=== PATIENT | male | born 1955 | race Caucasian/White ===

== ENCOUNTER → 2016-12-22 | Outpatient (REF) | payer OTHER ==
[~2016-12-22] MED LIST: /AMLO25TA PO; /FENO14TA PO; /FENO48TA PO; ALFU10TA2 PO; AMLO10TA2 PO; ASPI325T PO; ASPI81CH PO; ATEN25TA PO; BACT800T5 PO; FLON1SPR; HYDR12.56 PO; KEFL500C7 PO; LIPI20TA PO; MACR100C3 PO; NEUR300C PO; NICO14DI3 TD; PERC10TA17 PO; PERCOCET PO; PROA1AER INH; PROS5TAB PO; SYMB16INH INH; TERA1CA PO; TYLE325T5 PO; TYLE650T30 PO; XANA0.25 PO; ZANT150T PO; [UNRECOGNIZED DRUG - CODE] PO; duricef PO
[2016-12-22 10:49] LABS: MEAN CORPUSCULAR HEMOGLOBIN 31.5 pg (27.0-33.0); MEAN CORPUSCULAR HGB CONC 33.5 g/dl (32.0-36.5); MEAN CORPUSCULAR VOLUME 94.1 fl (80.0-96.0); RED CELL DISTRIBUTION WIDTH 13.6 % (11.5-14.5); WHITE BLOOD COUNT 6.7 K/mm3 (4.0-10.0)
[2016-12-22 10:56] LABS: ALBUMIN 3.6 GM/DL (3.2-5.2); ALBUMIN/GLOBULIN RATIO 1.03 (1.00-1.93); BILIRUBIN,TOTAL 0.5 MG/DL (0.2-1.0); CALCIUM LEVEL 8.8 MG/DL (8.8-10.2); CREATININE FOR GFR 1.43 MG/DL (0.70-1.30); GLOMERULAR FILTRATION RATE 53.7 (>49); POTASSIUM SERUM 4.4 MEQ/L (3.5-5.1); TOTAL PROTEIN 7.1 GM/DL (6.4-8.2)
== END ==
LOC: M SFHCPLAZ 08:46
PROVIDERS: ATTEND Nurse Practitioner Adult Health
DX: Z00.00 Encounter for general adult medical examination without abnormal findings (principal); Z12.5 Encounter for screening for malignant neoplasm of prostate; E78.00 Pure hypercholesterolemia, unspecified; N18.3 Chronic kidney disease, stage 3 (moderate)
CPT/HCPCS: 36415; 80053; 80061; 83036; 85027; G0103

== ENCOUNTER → 2016-12-23 | Outpatient (REF) | payer OTHER | LOC: M SMT 12:55 | PROVIDERS: ATTEND Urology | DX: N40.1 Benign prostatic hyperplasia with lower urinary tract symptoms (principal) ==

== ENCOUNTER → 2017-01-11 | Outpatient (REF) | payer OTHER | LOC: M SMT 13:07 | PROVIDERS: ATTEND Urology | DX: N39.0 Urinary tract infection, site not specified (principal) ==

== ENCOUNTER → 2017-01-24 | Outpatient (CLI) | payer OTHER ==
--- NOTE | 2017-01-25 01:55 | REP ---
Clinical: Cough . Comparison: 12/24/2015 . Technique: PA and lateral. Findings: The mediastinum and cardiac silhouette are normal. The lung baez are clear and without acute consolidation, effusion, or pneumothorax. The skeletal structures are intact and normal. Impression: 1. No acute cardiopulmonary process. Signed by Nathaniel Cleary MD 01/25/2017 01:46 A
== END ==
LOC: M WUC 15:16
PROVIDERS: ATTEND Nurse Practitioner Adult Health
DX: R05 Cough (principal)

== ENCOUNTER → 2017-02-01 | Outpatient (REF) | payer OTHER | LOC: M SMT 13:13 | PROVIDERS: ATTEND Urology | DX: N39.0 Urinary tract infection, site not specified (principal) ==

== ENCOUNTER → 2017-02-17 | Outpatient (REF) | payer OTHER ==
[~2017-02-17] MED LIST changes: +ASPI81TA85 PO; +BETA5OI TOP; +ISOS60TA2 PO; +KEFL500C17 PO; -KEFL500C7 PO; -MACR100C3 PO; +MACR100C43 PO; -PERC10TA17 PO; +PERC10TA26 PO; -PROA1AER INH; +PROAAER10 INH
== END ==
LOC: M LAB REF 17:12
PROVIDERS: ATTEND Urology
DX: N39.0 Urinary tract infection, site not specified (principal)

== ENCOUNTER → 2017-03-02 | Outpatient (CLI) | payer OTHER ==
[2017-03-02 13:37] LABS: CALCIUM LEVEL 9.8 MG/DL (8.8-10.2); CREATININE FOR GFR 1.49 MG/DL (0.70-1.30); GLOMERULAR FILTRATION RATE 51.2 (>49)
[2017-03-02 13:42] LABS: POTASSIUM SERUM 5.3 MEQ/L (3.5-5.1)
== END ==
LOC: M SMT 08:58
PROVIDERS: ATTEND Urology
DX: N40.1 Benign prostatic hyperplasia with lower urinary tract symptoms (principal); N39.0 Urinary tract infection, site not specified

== ENCOUNTER → 2017-03-04 | Outpatient (CLI) | payer OTHER ==
[~2017-03-04] VITALS: Ht 182.9 cm; Wt 136.1 kg
[~2017-03-04] MED LIST changes: +GLUCAGON FOR INJ 1 MG VIAL (J1610) As Ordered ONE; +NS 1,000 ML IV ONE; +PROPOFOL 200 MG/20 ML VIAL As Ordered ONE
--- NOTE | 2017-03-04 11:44 | ROOR ---
Patient Name: Foster Mishra Procedure Date: 03/04/2017 11:15 AM Date of : 1955 Age: 61 Room: [facility] Gender: Male Note Status: Finalized Procedure: Colonoscopy Indications: Screening for colorectal malignant neoplasm Providers: Wes SALAZAR MD Referring MD: Nazia Blum NP Requesting Provider: Medicines: Monitored Anesthesia Care Complications: No immediate complications. Procedure: Pre-Anesthesia Assessment: - The heart rate, respiratory rate, oxygen saturations, blood pressure, adequacy of pulmonary ventilation, and response to care were monitored throughout the procedure. The Colonoscope was introduced through the anus and advanced to the cecum, identified by appendiceal orifice and ileocecal valve. The colonoscopy was performed without difficulty. The patient tolerated the procedure well. The quality of the bowel preparation was good. Findings: The perianal and digital rectal examinations were normal. (Exam: Complete, Prep: Good or Excellent.) A 5 mm polyp was found in the splenic flexure. The polyp was sessile. The polyp was removed with a cold snare. Resection and retrieval were complete. A 5 mm polyp was found in the sigmoid colon. The polyp was sessile. The polyp was removed with a cold snare. Resection and retrieval were complete. To prevent bleeding post-intervention, three hemostatic clips were successfully placed. There was no bleeding at the end of the procedure. Two sessile polyps were found in the cecum. The polyps were 3 to 4 mm in size. These polyps were removed with a cold snare. Resection and retrieval were complete. Multiple medium-mouthed diverticula were found in the sigmoid colon. Internal hemorrhoids were found during retroflexion. The hemorrhoids were medium-sized. The exam was otherwise without abnormality on direct and retroflexion views. Impression: - One 5 mm polyp at the splenic flexure, removed with a cold snare. Resected and retrieved. - One 5 mm polyp in the sigmoid colon, removed with a cold snare. Resected and retrieved. Clips were placed. - Two 3 to 4 mm polyps in the cecum, removed with a cold snare. Resected and retrieved. - Mild Diverticulosis in the sigmoid colon. - Moderate Internal hemorrhoids. - The examination was otherwise normal on direct and retroflexion views. Recommendation: - Repeat colonoscopy in 3 years for surveillance. - Telephone endoscopist for pathology results in 2 weeks. Wes Salazar MD Wes SALAZAR MD 03/04/2017 11:44:11 AM This report has been signed electronically. Number of Addenda: 0 Note Initiated On: 03/04/2017 11:15 AM Estimated Blood Loss: Estimated blood loss: none.
[2017-03-04 12:17] VITALS: BP 145/75
== END | disposition home or self-care (01) ==
LOC: M OPP 09:52
PROVIDERS: ATTEND Internal Medicine Gastroenterology
DX: Z12.11 Encounter for screening for malignant neoplasm of colon (principal); D12.3 Benign neoplasm of transverse colon; D12.5 Benign neoplasm of sigmoid colon; D12.0 Benign neoplasm of cecum; K57.30 Diverticulosis of large intestine without perforation or abscess without bleeding; K64.8 Other hemorrhoids; I12.9 Hypertensive chronic kidney disease with stage 1 through stage 4 chronic kidney disease, or unspecified chronic kidney disease; I25.10 Atherosclerotic heart disease of native coronary artery without angina pectoris; E78.5 Hyperlipidemia, unspecified; Z95.5 Presence of coronary angioplasty implant and graft; Z86.74 Personal history of sudden cardiac arrest; Z86.14 Personal history of Methicillin resistant Staphylococcus aureus infection; M19.90 Unspecified osteoarthritis, unspecified site; M54.9 Dorsalgia, unspecified; J44.9 Chronic obstructive pulmonary disease, unspecified; G47.30 Sleep apnea, unspecified; R06.83 Snoring; R06.02 Shortness of breath; N18.3 Chronic kidney disease, stage 3 (moderate); N40.1 Benign prostatic hyperplasia with lower urinary tract symptoms; J00 Acute nasopharyngitis [common cold]; F17.210 Nicotine dependence, cigarettes, uncomplicated; Z88.8 Allergy status to other drugs, medicaments and biological substances; Z88.5 Allergy status to narcotic agent; Z79.82 Long term (current) use of aspirin; Z79.01 Long term (current) use of anticoagulants; Z79.899 Other long term (current) drug therapy
CPT/HCPCS: 45385; 88305; J1610

== ENCOUNTER → 2017-04-01 | Outpatient (REF) | payer OTHER ==
[~2017-04-01] MED LIST changes: -GLUCAGON FOR INJ 1 MG VIAL (J1610) As Ordered ONE; -NS 1,000 ML IV ONE; -PROPOFOL 200 MG/20 ML VIAL As Ordered ONE
== END ==
LOC: M SMT 17:12
PROVIDERS: ATTEND Urology
DX: N39.0 Urinary tract infection, site not specified (principal)

== ENCOUNTER → 2017-04-04 | Outpatient (CLI) | payer OTHER ==
--- NOTE | 2017-04-09 10:32 | SLEEPCENT ---
DATE OF STUDY: 04/04/2017 ORDERING PROVIDER: Aleksandra Morton NP Nocturnal polysomnography was performed due to concern for the obstructive sleep apnea syndrome in this patient with a history of excessive daytime somnolence. 6 hours and 35 minutes of data were reviewed. There were 291 minutes of sleep identified. Sleep latency was prolonged at 22 minutes. Rapid eye movement (REM) latency more so prolonged at 198 minutes. Sleep architecture was fragmented with poor progression. There was only one REM period appreciated. Overall sleep efficiency was 74.7%. The patient's electrocardiogram (EKG) showed a sinus rhythm with an average heart rate of 76 beats per minute. Electroencephalogram (EEG) showed normal waveforms for awake and sleep. There were 648 respiratory events identified of 10 seconds in duration or greater for an apnea-hypopnea index of 133.6. The events were primarily obstructive, not exclusive to sleep stage nor posture. Arousals from respiratory events occurred 71.8 times per hour. There was some limb activity, as well. Limb movement arousal index was 3.1. Oxygen desaturations were seen into the 70s. IMPRESSION: Very severe obstructive sleep apnea syndrome (G47.33). Apnea-hypopnea index of 133.6. RECOMMENDATION: The patient should be encouraged to return to the sleep disorder center as his earliest convenience for pressure therapy. In the interim, alcohol and sedative avoidance should be practiced and caution exercised during the operation of motor vehicles.
== END ==
LOC: M SLEEP 19:33
PROVIDERS: ATTEND Nurse Practitioner Adult Health
DX: G47.33 Obstructive sleep apnea (adult) (pediatric) (principal)

== ENCOUNTER 2017-04-20 12:59 | Observation (INO) | payer OTHER ==
[~2017-04-20] VITALS: Ht 182.9 cm; Wt 146.4 kg
[2017-04-20] MEDS: ISOSORBIDE MON. (IMDUR) 60 MG XR TAB PO SCH (09:00)
[~2017-04-20 12:59] MED LIST changes: -BETA5OI TOP; -ISOS60TA2 PO
[2017-04-20] MEDS ORDERED: NS 500 ML IV ONE ×2 (13:30→17:30)
[2017-04-20] MEDS ORDERED: ASPIRIN 81 MG CHEW TABLET PO ONE (13:30)
[2017-04-20 13:40] LABS: BASO % 0.7 % (0.0-1.0); EOS # 0.1 K/mm3 (0.0-0.50); EOS % 1.1 % (0.0-3.0); LARGE UNSTAINED CELL # 0.1 K/mm3 (0.0-0.4); LARGE UNSTAINED CELL % 2.4 % (0.0-4.0); LYMPH % 17.1 % (24.0-44.0); MEAN CORPUSCULAR HEMOGLOBIN 32.6 pg (27.0-33.0); MEAN CORPUSCULAR HGB CONC 34.5 g/dl (32.0-36.5); MEAN CORPUSCULAR VOLUME 94.5 fl (80.0-96.0); MONO # 0.4 K/mm3 (0.0-0.8); MONO % 6.6 % (0.0-5.0); NEUTROPHILS # 4.1 K/mm3 (1.8-7.7); NEUTROPHILS % 72.2 % (36.0-66.0); PLATELET COUNT, AUTOMATED 265 k/mm3 (150-450); WHITE BLOOD COUNT 5.7 K/mm3 (4.0-10.0)
[2017-04-20 13:52] LABS: ALBUMIN/GLOBULIN RATIO 1.08 (1.00-1.93); ALKALINE PHOSPHATASE 73 U/L (45-117); ALT/SGPT 69 U/L (12-78); ANION GAP 7 MEQ/L (8-16); AST/SGOT 47 U/L (15-37); BILIRUBIN,DIRECT 0.2 MG/DL (0.0-0.2); BILIRUBIN,TOTAL 0.8 MG/DL (0.2-1.0); BLOOD UREA NITROGEN 26 MG/DL (7-18); CALCIUM LEVEL 8.8 MG/DL (8.8-10.2); CARBON DIOXIDE LEVEL 29 MEQ/L (21-32); CHLORIDE LEVEL 107 MEQ/L (98-107); CREATININE FOR GFR 1.65 MG/DL (0.70-1.30); GLOMERULAR FILTRATION RATE 45.5 (>49); GLUCOSE, FASTING 122 MG/DL (80-110); POTASSIUM SERUM 4.5 MEQ/L (3.5-5.1); SODIUM LEVEL 143 MEQ/L (136-145); TOTAL PROTEIN 7.7 GM/DL (6.4-8.2)
[2017-04-20 13:55] LABS: INR 1.01
--- NOTE | 2017-04-20 14:23 | REP ---
Chest two views HISTORY: Chest pain Comparison: 01/24/2017 The lungs are clear. The heart is normal in size. The pulmonary vasculature is normal in appearance. The bony structure is intact. IMPRESSION: No acute disease. Signed by Tip Yusuf MD 04/20/2017 02:15 P
[2017-04-20] MEDS ORDERED: ISOVUE-370 76% 100ML VIAL (Q9967) As Ordered ONE (14:29)
[2017-04-20] MEDS ORDERED: NICOTINE 21MG/24HR 1 EA TRANSDERMAL TD ONE (14:45)
--- NOTE | 2017-04-20 15:09 | REP ---
CT PULMONARY ANGIOGRAM: WITH IV CONTRAST. HISTORY: Chest pain and shortness of breath. Question pulmonary embolus. COMPARISON STUDIES: Comparison is made with today's chest x-ray. CONTRAST DOSE: 60 mL of Isovue-[address] TECHNIQUE: Helical scanning is acquired and overlapping 1.5 mm and contiguous 3 mm axial images are reformatted. In addition, a 3D work station is deployed to generate thick slab maximum intensity projection images in sagittal and coronal imaging projections. CT PULMONARY ANGIOGRAPHIC FINDINGS: There is good opacification of the pulmonary arterial tree and the thoracic aorta. There is no CT evidence of pulmonary embolus or aortic aneurysm or dissection. No hilar or mediastinal mass or adenopathy is seen. There is some left coronary artery vascular calcification. No adrenal lesion is seen. The visualized upper abdominal structures are unremarkable. No pleural or pericardial effusion is seen. Maximum intensity projection images show no evidence of vessel cutoff or filling defect. There is no evidence of pneumothorax, pulmonary edema, or infiltrate. No bony destructive lesion is seen. IMPRESSION: Vascular calcification including left coronary. No CT evidence of pulmonary embolus. Otherwise, no acute disease. Signed by Francisco Ludwig MD 04/20/2017 05:05 P
[2017-04-20] MEDS ORDERED: BETA5OI TOP (15:37)
[2017-04-20] MEDS ORDERED: IPRATROPIUM 0.5MG/ALBUTEROL 2.5MG INH SOL UD 3ML (DUONEB)(J7620) NEB PRN (17:15)
[2017-04-20] MEDS ORDERED: NITROGLYCERIN 2% OINT 1 GM *U/D* PKT TOP ONE (17:15)
[2017-04-20] MEDS ORDERED: ALPRAZolam 0.25 MG TAB PO PRN (17:15)
[2017-04-20] MEDS ORDERED: BETAMETHASONE DIP 0.05% OINT 15 GM TOP PRN (17:15)
[2017-04-20] MEDS ORDERED: ONDANSETRON 4MG/2ML VIAL (J2405) IV PRN (17:30)
[2017-04-20] MEDS ORDERED: ACETAMINOPHEN TAB 650MG DOSE (2X325MG) PO PRN (17:30)
[2017-04-20] MEDS: PERCOCET 5MG/325MG TAB PO PRN (19:45)
[2017-04-20] MEDS: IPRATROPIUM 0.5MG/ALBUTEROL 2.5MG INH SOL UD 3ML (DUONEB)(J7620) NEB SCH (19:51)
[2017-04-20 20:30] VITALS: BP 118/65
--- NOTE | 2017-04-20 21:03 | HPE ---
DATE OF ADMISSION: 04/20/2017 PRIMARY CARE PROVIDER: Nazia Blum RN, ANP MATE FIRST: Dr. Schmid, covered by Dr. Snyder CHIEF COMPLAINT: Syncope and chest discomfort, chest pressure. HISTORY OF PRESENT ILLNESS: This is a 61-year-old male patient with underlying medical history of hypertension, dyslipidemia, chronic back pain, follows up with Dr. Issa, arthritis, orchitis, gastroesophageal reflux disease (GERD), chronic obstructive pulmonary disease (COPD) on 2 liters oxygen at night, obstructive sleep apnea not on continuous positive airway pressure (CPAP), fatty liver disease, chronic kidney disease (CKD) stage III, obesity. As per patient, around 5:00 a.m., patient attempted to get off the bed, was at the edge of the bed, subsequently fell to the floor. Reported that patient did not wake up until much later. Was able to get up from the bed, but subsequently, after patient got up, patient reported left-sided chest pressure and discomfort that is persistent, about 5 out of 10, improved with aspirin. Also reported mild shortness of breath and dyspnea has been going on for a year. Patient does have a history of coronary artery disease with stent placement and history of cardiac arrest during stress test due to adenosine. Otherwise, patient denies any fevers, chills, vision change, hearing change. Was hypertensive in the emergency department (ED). In the emergency room, EKG was done. Cardiac enzymes were done and were negative. Case was discussed with Dr. Snyder, who recommended admitting the patient for further observation. Patient denies any injury anywhere Denies any headache, hip pain, leg pain, belly pain, nausea or vomiting, diarrhea, urinary complaints. ALLERGIES: ANGIOTENSIN-CONVERTING ENZYME (MARIA DE JESUS) INHIBITOR, ADENOSINE, ANGIOTENSIN RECEPTOR HARVINDER (ARB), MORPHINE. PAST MEDICAL HISTORY: 1. Coronary artery disease with stents. 2. Hypertension. 3. Dyslipidemia. 4. Chronic back pain. 5. Arthritis. 6. Orchitis. 7. Gastroesophageal reflux disease (GERD). 8. Chronic obstructive pulmonary disease (COPD). 9. Fatty liver. 10. Chronic kidney disease (CKD) stage III. 11. Obstructive sleep apnea on 2 liters oxygen at night. 12. Smoking. PAST SURGICAL HISTORY: 1. Tonsillectomy/adenoidectomy. 2. Cardiac stent. 3. Right knee replacement. 4. Skin graft. 5. Tracheostomy due to epiglottitis. 6. Discectomy. 7. Left and right hip replacement. 8. Lumbar laminectomy. FAMILY HISTORY: Father with myocardial infarction (RI) at age 49. Mother with cancer. SOCIAL HISTORY: Patient smokes one pack per day for the past 40 years. Drinks alcoholic beverages, wine, five times a week. Denies other illicit drug use. REVIEW OF SYSTEMS: Reported chest discomfort and pressure-like pain left side of the chest and had an episode of syncope earlier this morning. All other review of systems are negative. HOME MEDICATIONS: - ProAir inhalation as needed - alfuzosin 10 mg by mouth daily - Xanax 0.25 mg by mouth twice a day as needed - Norvasc 10 mg by mouth daily - aspirin 81 mg by mouth daily - atenolol 25 mg by mouth daily - Lipitor 20 mg by mouth at bedtime - betamethasone as needed topically for psoriasis - Symbicort 160/4.5 inhalation twice a day - Proscar 45 mg by mouth at bedtime - Percocet 10/325 every 6 hours as needed PHYSICAL EXAMINATION: VITAL SIGNS: Temperature 96.6, pulse 75, respirations 18, blood pressure on admission was 82/57, pulse oximetry was 95%, but during the hospital course in the emergency room, patient's blood pressure increased persistently to 197 to 107, with pulse 55. GENERAL: Patient obese, alert and oriented times three. No acute distress. HEENT: Normocephalic, atraumatic. PULMONARY: Bilateral clear to auscultation. CARDIAC: Regular rate and rhythm. Normal S1, S2. ABDOMEN: Soft, obese, nontender. EXTREMITIES: No clubbing, cyanosis or edema. NEUROLOGIC: No focal deficits. LABORATORY DATA: WBC 5.7, hemoglobin and hematocrit (H and H) 15/43.5, platelets 265. Chemistry: Sodium 143, potassium 4.5, chloride 107, bicarbonate 29, BUN 26, creatinine 1.6. Cardiac enzymes: Negative times two. Lipase: Negative. EKG: Sinus rhythm of 78, right bundle branch block, T-wave inversion V1, V2. No change from previous. CT angiogram negative for pulmonary embolism (PE). ASSESSMENT AND PLAN: This is a 61-year-old male patient with underlying medical history of coronary artery disease with stents, hypertension, dyslipidemia, obstructive sleep apnea, chronic back pain, arthritis, orchitis, gastroesophageal reflux disease (GERD), chronic obstructive pulmonary disease (COPD), fatty liver, chronic kidney disease (CKD) stage III, smoking, admitted with syncope and chest pain. PROBLEMS: 1. Chest pain. Case discussed with Dr. Snyder, who was consulted. Telemetry monitoring. Chest pain has improved with aspirin. Continue baby aspirin and beta blockers. Nitro-paste has been given. Monitor blood pressure. Continue statin. Trend cardiac enzymes. Serial EKGs. 2. Hypertension. Will place the patient on Nitro-paste. Will add Imdur tomorrow. Continue Norvasc, atenolol as ordered. Monitor blood pressure. Goal blood pressure around 140-160 systolic. 3. Syncope. Followup orthostatic vital signs. Echocardiogram. Physical therapy for home safety evaluation. 4. Obstructive sleep apnea. Patient does not yet have a continuous positive airway pressure (CPAP) machine. On 2 liters oxygen at night. Will monitor the patient closely. If the patient is to be transferred off of progressive care unit (PCU), will need obstructive sleep apnea (ERIBERTO) protocol. 5. Dyslipidemia. Continue statin. 6. Chronic back pain. Continue current medication. 7. Gastroesophageal reflux disease (GERD). Continue current medication. 8. Chronic obstructive pulmonary disease (COPD). Patient on 2 liters oxygen at night. Will monitor closely. Continue current medication. 9. Chronic kidney disease (CKD) stage IV. Follow up BUN and creatinine. Creatinine is only slightly elevated. Will give IV fluids given patient had contrast. 10. Obesity. Complicating care. 11. Coronary artery disease with stents. Cardiology consulted. Follow up cardiac enzymes. Continue aspirin, statin, beta harvinder. 12. Smoking. Nicotine patch. Counseling provided. 13. Deep venous thrombosis (DVT) prophylaxis. Heparin subcutaneously. 14. Benign prostatic hypertrophy (BPH). Continue current medication. DISPOSITION: Pending clinical improvement. Control blood pressure. Cardiology consulted.
[2017-04-20] MEDS: SENOKOT S TAB PO SCH (21:12)
[2017-04-20] MEDS: ATORVASTATIN 20 MG TAB PO SCH (21:12)
[2017-04-20] MEDS: FINASTERIDE 5 MG TAB PO SCH (21:12)
[2017-04-20] MEDS: HEPARIN SOD (PORCINE) 5000 UNITS/ML VIAL SC SCH (21:12)
[2017-04-20] MEDS: SYMBICORT 160/4.5MCG INHALER 6GM INH SCH (21:35)
[2017-04-21] VITALS (7 sets, daily range): BP systolic 112–182; BP diastolic 56–96
[2017-04-21] MEDS: IPRATROPIUM 0.5MG/ALBUTEROL 2.5MG INH SOL UD 3ML (DUONEB)(J7620) NEB SCH ×4 (02:00→18:51)
[2017-04-21] MEDS: HEPARIN SOD (PORCINE) 5000 UNITS/ML VIAL SC SCH ×3 (06:29→21:38)
[2017-04-21 06:55] LABS: MEAN CORPUSCULAR HEMOGLOBIN 32.1 pg (27.0-33.0); MEAN CORPUSCULAR VOLUME 94.5 fl (80.0-96.0); RED CELL DISTRIBUTION WIDTH 13.3 % (11.5-14.5); WHITE BLOOD COUNT 7.1 K/mm3 (4.0-10.0)
[2017-04-21 07:12] LABS: ALBUMIN 3.3 GM/DL (3.2-5.2); ALBUMIN/GLOBULIN RATIO 1.03 (1.00-1.93); BILIRUBIN,TOTAL 0.5 MG/DL (0.2-1.0); CALCIUM LEVEL 8.8 MG/DL (8.8-10.2); CREATININE FOR GFR 1.45 MG/DL (0.70-1.30); GLOMERULAR FILTRATION RATE 52.8 (>49); MAGNESIUM LEVEL 2.3 MG/DL (1.8-2.4); POTASSIUM SERUM 4.3 MEQ/L (3.5-5.1); TOTAL PROTEIN 6.5 GM/DL (6.4-8.2)
[2017-04-21] MEDS: SYMBICORT 160/4.5MCG INHALER 6GM INH SCH ×2 (07:50→19:44)
[2017-04-21] MEDS: ASPIRIN 81 MG ENTERIC TAB PO SCH (09:07)
[2017-04-21] MEDS: ATENOLOL 25 MG TAB PO SCH (09:08)
[2017-04-21] MEDS: amLODIPine 10 MG TAB PO SCH (09:08)
[2017-04-21] MEDS: SENOKOT S TAB PO SCH ×2 (09:08→20:20)
[2017-04-21] MEDS: NICOTINE 21MG/24HR 1 EA TRANSDERMAL TD SCH (09:09)
[2017-04-21] MEDS: PERCOCET 5MG/325MG TAB PO PRN ×3 (09:09→20:21)
[2017-04-21] MEDS: ISOSORBIDE MON. (IMDUR) 60 MG XR TAB PO SCH (09:11)
[2017-04-21] MEDS: FINASTERIDE 5 MG TAB PO SCH (20:21)
[2017-04-21] MEDS: ATORVASTATIN 20 MG TAB PO SCH (20:21)
--- NOTE | 2017-04-21 21:57 | IPNPDOC ---
Date Seen The patient was seen on 04/21/17. Progress Note Hospitalist Progress Note Subjective: Patient states that he does not have any chest pain. Objective: Physical Exam: Vitals: Vital Sign - Last 24 Hours 04/21/17 04/21/17 04/21/17 04/21/17 00:00 00:00 04:30 08:00 Temp 98.0 97.9 98.1 Pulse 59 59 80 82 80 87 Resp 18 20 18 B/P (MAP) 112/57 (75) 112/57 (75) 117/58 (77) 136/76 (96) 126/72 (90) 139/61 (87) Pulse Ox 94 97 97 O2 Delivery Nasal Cannula Nasal Cannula Room Air O2 Flow Rate 2.0 2.0 04/21/17 04/21/17 04/21/17 04/21/17 08:00 09:08 09:09 12:00 Temp 98.1 Pulse 82 74 60 95 93 Resp 20 20 B/P (MAP) 136/76 (96) 118/56 131/75 (93) 128/65 (86) 118/56 (76) Pulse Ox 96 96 O2 Delivery Room Air Nasal Cannula O2 Flow Rate 2.0 04/21/17 04/21/17 04/21/17 04/21/17 16:00 16:00 16:11 16:41 Temp 97.9 Pulse 68 68 77 68 Resp 20 20 20 B/P (MAP) 143/82 (102) 143/82 (102) 138/73 (94) 128/69 (88) Pulse Ox 98 O2 Delivery Room Air Room Air Room Air 04/21/17 04/21/17 04/21/17 04/21/17 19:42 20:01 20:21 21:38 Temp 97.5 Pulse 80 Resp 20 20 20 B/P (MAP) 138/86 (103) Pulse Ox 96 O2 Delivery Nasal Cannula Room Air O2 Flow Rate 2.0 General: Awake, alert, no acute distress HEENT: Normocephalic, atraumatic, moist mucous membranes CV: Regular rate and rhythm Lungs: Clear to auscultation bilaterally Abd: Soft, nontender, nondistended Extremities: No edema Neuro: Alert and oriented 3 Psych: Normal mood and affect Labs and Imaging: Laboratory Tests 04/21/17 06:40 Red Blood Count 4.00 L, Mean Corpuscular Volume 94.5, Mean Corpuscular Hemoglobin 32.1, Mean Corpuscular Hemoglobin Concent 34.0, Red Cell Distribution Width 13.3, Calcium Level 8.8, Aspartate Amino Transf (AST/SGOT) 25 , Alanine Aminotransferase (ALT/SGPT) 53, Alkaline Phosphatase 62, Total Bilirubin 0.5, Total Protein 6.5, Albumin 3.3 Assessment and Plan: 61-year-old male with hypertension, CAD status post stents, hyperlipidemia, chronic back pain, arthritis, orchitis, GERD, COPD on 2 L O2 at night, ERIBERTO not on CPAP, fatty liver disease, chronic kidney disease stage III, obesity who presented to the emergency department after experiencing a syncopal event was associated with left-sided chest pressure and discomfort. 1. Chest pressure and discomfort: EKG is not indicative of acute infarct or ischemia. Troponins have been unremarkable. The patient will be monitored on telemetry and Dr. Snyder will be seeing the patient in consultation. Echocardiogram is pending. CTA is negative for PE. 2. Syncope: We will get a CT of the head. We will also check orthostatics and monitor on telemetry. Echocardiogram has been ordered. 3. CAD status post stents, hyperlipidemia: Continue aspirin, beta harvinder, statin. 4. Hypertension: Continue imdur, beta harvinder, Norvasc 5. COPD: Currently stable. Continue nightly oxygen. Continue home inhalers. 6. Chronic back pain: Continue home meds. 7. Chronic kidney disease stage III: The patient's baseline creatinine appears to be in the mid ones. He is currently at baseline. Continue to monitor. DVT prophylaxis: Heparin Dispo: pending syncopal workup and evaluation by Dr. Snyder VS, I&O, 24H, Fishbone Vital Signs/I&O Vital Signs Date Time Temp Pulse Resp B/P (MAP) Pulse Ox O2 Delivery O2 Flow Rate FiO2 04/21/17 21:38 20 04/21/17 20:01 97.5 80 138/86 (103) 96 Room Air 04/21/17 19:42 2.0 04/20/17 19:43 50 I&O- Last 24 Hours up to 6 AM 04/21/17 05:59 Intake Total 480 ml Output Total 550 ml Balance -70 ml Laboratory Data 24H LABS Laboratory Tests 2 04/20/17 22:19: Total Creatine Kinase 63, Creatine Kinase MB 1.3, Creatine Kinase MB Relative Index 2.06, Troponin I < 0.02 04/21/17 06:40: Anion Gap 5L, Glomerular Filtration Rate 52.8, Blood Urea Nitrogen 28H, Creatinine 1.45H, Sodium Level 143, Potassium Level 4.3, Chloride Level 108H, Carbon Dioxide Level 30, Calcium Level 8.8, Aspartate Amino Transf (AST/SGOT) 25 , Alanine Aminotransferase (ALT/SGPT) 53, Alkaline Phosphatase 62, Total Bilirubin 0.5, Total Protein 6.5, Albumin 3.3, Magnesium Level 2.3, Albumin/ Globulin Ratio 1.03 CBC/BMP Laboratory Tests 04/21/17 06:40 Red Blood Count 4.00 L, Mean Corpuscular Volume 94.5, Mean Corpuscular Hemoglobin 32.1, Mean Corpuscular Hemoglobin Concent 34.0, Red Cell Distribution Width 13.3, Calcium Level 8.8, Aspartate Amino Transf (AST/SGOT) 25 , Alanine Aminotransferase (ALT/SGPT) 53, Alkaline Phosphatase 62, Total Bilirubin 0.5, Total Protein 6.5, Albumin 3.3 PAPI WHITFIELD Apr 21, 2017 21:57
[2017-04-22] MEDS: PERCOCET 5MG/325MG TAB PO PRN ×2 (01:07→09:00)
[2017-04-22] MEDS: IPRATROPIUM 0.5MG/ALBUTEROL 2.5MG INH SOL UD 3ML (DUONEB)(J7620) NEB SCH ×3 (01:51→13:37)
[2017-04-22 04:00] VITALS: BP 154/70
--- NOTE | 2017-04-22 05:55 | ECGEPIP ---
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
[2017-04-22] MEDS: HEPARIN SOD (PORCINE) 5000 UNITS/ML VIAL SC SCH (06:10)
[2017-04-22 06:23] LABS: MEAN CORPUSCULAR HEMOGLOBIN 32.8 pg (27.0-33.0); MEAN CORPUSCULAR HGB CONC 34.5 g/dl (32.0-36.5); MEAN CORPUSCULAR VOLUME 94.9 fl (80.0-96.0); RED CELL DISTRIBUTION WIDTH 13.4 % (11.5-14.5)
[2017-04-22 06:42] LABS: ALBUMIN 3.5 GM/DL (3.2-5.2); BILIRUBIN,TOTAL 0.6 MG/DL (0.2-1.0); CREATININE FOR GFR 1.41 MG/DL (0.70-1.30); GLOMERULAR FILTRATION RATE 54.6 (>49); MAGNESIUM LEVEL 2.5 MG/DL (1.8-2.4); POTASSIUM SERUM 4.5 MEQ/L (3.5-5.1)
[2017-04-22] MEDS: SYMBICORT 160/4.5MCG INHALER 6GM INH SCH (07:25)
[2017-04-22 08:55] VITALS: BP 170/62
[2017-04-22] MEDS: NICOTINE 21MG/24HR 1 EA TRANSDERMAL TD SCH (08:55)
[2017-04-22] MEDS: amLODIPine 10 MG TAB PO SCH (08:55)
[2017-04-22] MEDS: ASPIRIN 81 MG ENTERIC TAB PO SCH (08:55)
[2017-04-22] MEDS: ATENOLOL 25 MG TAB PO SCH (08:56)
[2017-04-22] MEDS: ISOSORBIDE MON. (IMDUR) 60 MG XR TAB PO SCH (08:56)
[2017-04-22] MEDS: SENOKOT S TAB PO SCH (08:56)
[2017-04-22 10:00] VITALS: BP_SYST 166; BP_SYST 168; BP_SYST 170; BP_DIAS 58; BP_DIAS 62
[2017-04-22] MEDS ORDERED: ISOS60TA2 PO (10:23)
--- NOTE | 2017-04-22 14:11 | IPNPDOC ---
Date Seen The patient was seen on 04/22/17. Progress Note Subjective: No complaints this am , no dizziness or lightheaded ness in the hospital , No arrhythmias in the telemetry , Patient does have sinus bradycardia in tele during sleep which is asymptomatic . Patient does have episodes of apnea during sleep with hypoxia. Physical Exam: Vitals: As below. General: Awake, alert, no acute distress HEENT: Normocephalic, atraumatic, moist mucous membranes CV: Regular rate and rhythm Lungs: Clear to auscultation bilaterally Abd: Soft, nontender, nondistended Extremities: No edema Neuro: Alert and oriented 3 Psych: Normal mood and affect Labs and Imaging: As below. Assessment and Plan: 61-year-old male with hypertension, CAD status post stents, hyperlipidemia, chronic back pain, arthritis, orchitis, GERD, COPD on 2 L O2 at night, ERIBERTO not on CPAP, fatty liver disease, chronic kidney disease stage III, obesity who presented to the emergency department after experiencing a syncopal event was associated with left-sided chest pressure and discomfort. 1. Chest pressure and discomfort: Nonspecific. EKG is not indicative of acute infarct or ischemia. Troponins have been unremarkable. No abnormality in telemetry. Echocardiogram done. CTA is negative for PE. will follow up with Dr Schmid as outpatient. 2. Syncope: Possibly related to severe ERIBERTO vs Vasovagal episode. Ct head negative . orthostatics negative , telemetry for 48 hours did not show any arrhythmias. Echocardiogram done. 3. CAD status post stents, hyperlipidemia: Continue aspirin, beta harvinder, statin. 4. Hypertension: Continue imdur, beta harvinder, Norvasc 5. COPD: Currently stable. Continue nightly oxygen. Continue home inhalers. 6. Chronic back pain: Continue home meds. 7. Chronic kidney disease stage III: The patient's baseline creatinine appears to be in the mid ones. He is currently at baseline. Continue to monitor. 8. Morbid obesity and severe ERIBERTO; has appointment with pulmonology to be set up for CPAP later in this month. continue oxygen at night. DVT prophylaxis: Heparin Dispo: pending syncopal workup and evaluation by Dr. Snyder VS, I&O, 24H, Fishbone Vital Signs/I&O Vital Signs Date Time Temp Pulse Resp B/P (MAP) Pulse Ox O2 Delivery O2 Flow Rate FiO2 04/22/17 10:00 97.8 78 18 170/62 (98) 97 Room Air 04/22/17 01:40 2.0 04/20/17 19:43 50 I&O- Last 24 Hours up to 6 AM 04/22/17 05:59 Intake Total 840 ml Output Total 1925 ml Balance -1085 ml Laboratory Data 24H LABS Laboratory Tests 2 04/22/17 05:48: Anion Gap 5L, Glomerular Filtration Rate 54.6, Blood Urea Nitrogen 20H, Creatinine 1.41H, Sodium Level 141, Potassium Level 4.5, Chloride Level 104, Carbon Dioxide Level 32, Calcium Level 9.0, Aspartate Amino Transf (AST/SGOT) 17 , Alanine Aminotransferase (ALT/SGPT) 49, Alkaline Phosphatase 65, Total Bilirubin 0.6, Total Protein 7.0, Albumin 3.5, Magnesium Level 2.5H, Albumin/ Globulin Ratio 1.00 CBC/BMP Laboratory Tests 04/22/17 05:48 Red Blood Count 3.97 L, Mean Corpuscular Volume 94.9, Mean Corpuscular Hemoglobin 32.8, Mean Corpuscular Hemoglobin Concent 34.5, Red Cell Distribution Width 13.4, Calcium Level 9.0, Aspartate Amino Transf (AST/SGOT) 17 , Alanine Aminotransferase (ALT/SGPT) 49, Alkaline Phosphatase 65, Total Bilirubin 0.6, Total Protein 7.0, Albumin 3.5 COURTNEY CONRAD MD Apr 22, 2017 14:11
--- NOTE | 2017-04-22 14:30 | REP ---
Clinical: Syncope and fall. Comparison: None. Findings: Age-related atrophy and microvascular ischemic changes are appreciated. The ventricles and sulci are symmetric. Marley-white differentiation is maintained. There is no evidence for acute intracranial hemorrhage, mass/mass effect, pathology or infarction. No extra-axial fluid collection. Calvarium is intact. Paranasal sinuses and mastoid air cells are clear. Impression: Age related atrophy and microvascular ischemic changes. No acute intracranial hemorrhage, infarction, or mass/mass effect. Signed by Nathaniel Cleary MD 04/21/2017 10:26 P
--- NOTE | 2017-04-22 20:17 | ECHO ---
DATE OF PROCEDURE: 04/22/2017 REFERRING PHYSICIAN: Jeimy Eagle MD PRIMARY LIGHT COIL WINDER: Gaviota Schmid MD PATIENT LOCATION: Room 3216 REASON FOR ECHOCARDIOGRAM: Syncope. 2D MEASUREMENTS: IVS: 1.7 cm LV: 4.7 cm LVPW: 1.7 cm LA: 5.0 cm Aorta: 3.3 cm IVC: 2.2 cm DOPPLER MEASUREMENTS: Peak velocity across the aortic valve: 1.6 m/s Peak velocity across the LVOT: 0.75 m/s Mitral E: 1.0, Mitral A: 0.84, with a ratio of 1.2 Maximum tricuspid valve velocity: 2.4 m/s 2D COMMENTS: 1. Moderately increased left ventricular wall thickness with normal left ventricular size and a normal global left ventricular systolic function estimated at 60%. 2. Mildly to moderately enlarged left atrium. The right atrium and the right ventricle appeared to be normal in size. The atrial septum appeared to be normal without evidence of defect or shunt. 3. Normal aortic root. 4. Trace to small pericardial effusion noted around the heart, no evidence of cardiac tamponade. 5. Mildly calcified aortic valve with normal leaflet excursion. Mildly calcified mitral annulus with normal anterior mitral valve leaflet motion. Normal tricuspid valve. The pulmonic valve and proximal pulmonary artery branches were not well visualized. 6. The inferior vena cava was mildly enlarged, central venous pressure might be elevated. DOPPLER: It detects trace to mild tricuspid regurgitation. The calculated pulmonary artery systolic pressure varies between 30 to 40 mmg. Trace pulmonic regurgitation also detected. Assessment of the left ventricular diastolic function appeared to be normal. IMPRESSION: 1. Normal global left ventricular systolic function with probably moderate concentric left ventricular hypertrophy. Interestingly, left ventricular diastolic function parameters appeared to be normal, but there was enlarged left atrium without any significant mitral regurgitation and left ventricular hypertrophy. These findings are probably related to underlying left ventricular diastolic dysfunction. 2. Aortic valve sclerosis without any significant aortic stenosis or aortic regurgitation. 3. Isolated mildly to moderately enlarged left atrium, no significant mitral regurgitation detected. 4. Trace to mild tricuspid regurgitation with probably mild pulmonary artery hypertension. 5. Trace to small pericardial effusion, no evidence of cardiac tamponade. 6. There are findings that may be related to elevated central venous pressure, the inferior vena cava was mildly enlarged. [facility]
== END 2017-04-22 15:08 | disposition home or self-care (01) ==
LOC: M ED 12:59 → INTOOBSV 17:26 → M ED INP 17:26 → M PCU 04-21 23:32
PROVIDERS: ADMIT Hospitalist; ATTEND Hospitalist
DX: R07.9 Chest pain, unspecified (principal); R55 Syncope and collapse; I25.10 Atherosclerotic heart disease of native coronary artery without angina pectoris; Z98.61 Coronary angioplasty status; E78.4 Other hyperlipidemia; I10 Essential (primary) hypertension; J44.9 Chronic obstructive pulmonary disease, unspecified; M54.5 Low back pain; N18.3 Chronic kidney disease, stage 3 (moderate); Z79.82 Long term (current) use of aspirin; E66.01 Morbid (severe) obesity due to excess calories; G47.33 Obstructive sleep apnea (adult) (pediatric); K76.0 Fatty (change of) liver, not elsewhere classified; N45.2 Orchitis; F17.210 Nicotine dependence, cigarettes, uncomplicated; Z88.8 Allergy status to other drugs, medicaments and biological substances
CPT/HCPCS: 36415; 70450; 71020; 71275; 80048; 80053; 80076; 82550; 82553; 83690; 83735; 83880; 85025; 85027; 85610; 85730; 93005; 93041; 93306; 94640; 94660; 94760; 96372; 97161; 99285; Q9967

== ENCOUNTER → 2017-04-20 | Outpatient (REF) | payer OTHER | LOC: M SMT 13:00 | PROVIDERS: ATTEND Urology | DX: N39.0 Urinary tract infection, site not specified (principal) ==

== ENCOUNTER → 2017-05-13 | Outpatient (CLI) | payer OTHER ==
[~2017-05-13] MED LIST changes: +BETA5OI TOP; +ISOS60TA2 PO
--- NOTE | 2017-05-19 09:46 | SLEEPCENT ---
DATE OF PROCEDURE: 05/13/2017 REQUESTING PROVIDER: Aleksandra Morton NP INTERPRETATION: Nocturnal polysomnography was performed for the titration of pressure therapy in this patient with obstructive sleep apnea syndrome, apnea-hypopnea index of 133. For testing, the patient was fit with a ResMed Quattro full face mask of large size, 5 cm of water pressure were applied to the circuit and the lights were extinguished. 7 hours and 23 minutes of data were reviewed. There were 265 minutes of sleep identified. Sleep latency was prolonged at 151 minutes. Rapid eye movement (REM) latency was short at 27 minutes. Sleep architecture showed REM rebound. Overall sleep efficiency was 60.9%. Electrocardiogram (EKG) showed a sinus rhythm with an average heart rate of 64 beats per minute. Electroencephalogram (EEG) showed normal waveforms for awake and sleep. Various pressures and permutations of oxygen were applied during the study, best sleep was seen with a CPAP pressure of 15, with which pressure the patient slept through REM without respiratory event or oxygen desaturation. IMPRESSION: Obstructive sleep apnea syndrome (G47.33). RECOMMENDATIONS: Nightly use of pressure therapy at 15 cm of water.
== END ==
LOC: M SLEEP 19:43
PROVIDERS: ATTEND Nurse Practitioner Adult Health
DX: G47.33 Obstructive sleep apnea (adult) (pediatric) (principal)

== ENCOUNTER → 2017-05-13 | Outpatient (REF) | payer OTHER | LOC: M SMT 13:28 | PROVIDERS: ATTEND Urology | DX: N39.0 Urinary tract infection, site not specified (principal) ==

== ENCOUNTER → 2017-05-23 | Outpatient (REF) | payer OTHER | LOC: M SMT 12:44 | PROVIDERS: ATTEND Urology | DX: N39.0 Urinary tract infection, site not specified (principal) ==

== ENCOUNTER → 2017-06-08 | Outpatient (REF) | payer OTHER | LOC: M SMT 12:58 | PROVIDERS: ATTEND Urology | DX: N39.0 Urinary tract infection, site not specified (principal) ==

== ENCOUNTER → 2017-07-04 | Outpatient (REF) | payer OTHER | LOC: M SMT 17:00 | PROVIDERS: ATTEND Urology | DX: N39.0 Urinary tract infection, site not specified (principal) ==

== ENCOUNTER → 2017-12-30 | Outpatient (REF) | payer MEDICARE ==
[2017-12-30 13:10] LABS: APPEARANCE, URINE CLOUDY (CLEAR); BACTERIA, URINE AUTO 3+ (NEGATIVE); BILIRUBIN, URINE AUTO NEGATIVE (NEGATIVE); BLOOD, URINE BLOOD 1+ (NEGATIVE); COLOR, URINE YELLOW (YELLOW); GLUCOSE, URINE (UA) AUTO NEGATIVE (NEGATIVE); KETONE, URINE AUTO NEGATIVE (NEGATIVE); LEUKOCYTE ESTERASE, URINE AUTO 3+ (NEGATIVE); MUCUS, URINE SMALL (NEGATIVE); NITRITE, URINE AUTO POSITIVE (NEGATIVE); PROTEIN, URINE AUTO NEGATIVE (NEGATIVE); RBC, URINE AUTO 22 /HPF (0-3); SPECIFIC GRAVITY URINE AUTO 1.018 (1.002-1.035); SQUAMOUS EPITHELIAL CELL UR AU 1 /HPF (0-6); UROBILINOGEN, URINE AUTO 0.2 mg/dL (0.0-2.0); WBC, URINE AUTO TNTC /HPF (0-3)
[2017-12-30 13:30] LABS: ESTIMATED AVERAGE GLUCOSE 120 MG/DL (60-110); HEMOGLOBIN A1c 5.8 %
[2017-12-30 13:32] LABS: ALBUMIN 3.9 GM/DL (3.2-5.2); ALBUMIN/GLOBULIN RATIO 1.08 (1.00-1.93); ALKALINE PHOSPHATASE 74 U/L (45-117); ALT/SGPT 30 U/L (12-78); ANION GAP 5 MEQ/L (8-16); AST/SGOT 22 U/L (7-37); BILIRUBIN,TOTAL 0.7 MG/DL (0.2-1.0); BLOOD UREA NITROGEN 21 MG/DL (7-18); CALCIUM LEVEL 9.2 MG/DL (8.8-10.2); CARBON DIOXIDE LEVEL 28 MEQ/L (21-32); CHLORIDE LEVEL 108 MEQ/L (98-107); CHOLESTEROL LEVEL 136 MG/DL (<200); CHOLESTEROL RISK RATIO 3.487 (<5); CREATININE FOR GFR 1.35 MG/DL (0.70-1.30); GLOMERULAR FILTRATION RATE 57.2 (>49); GLUCOSE, FASTING 115 MG/DL (70-100); HDL CHOLESTEROL 39 MG/DL (>40); LDL CHOLESTEROL 56.8 MG/DL (<100); NON-HDL-C 97 MG/DL; POTASSIUM SERUM 4.1 MEQ/L (3.5-5.1); SODIUM LEVEL 141 MEQ/L (136-145); TOTAL PROTEIN 7.5 GM/DL (6.4-8.2); TRIGLYCERIDES LEVEL 201 MG/DL (<150)
== END ==
LOC: M SFHCPLAZ 11:12
DX: Z00.00 Encounter for general adult medical examination without abnormal findings (principal); E78.00 Pure hypercholesterolemia, unspecified; R73.9 Hyperglycemia, unspecified; N39.0 Urinary tract infection, site not specified
CPT/HCPCS: 80053

== ENCOUNTER → 2018-01-03 | Outpatient (CLI) | payer MEDICARE | LOC: M WUC 15:09 | DX: M25.512 Pain in left shoulder (principal); M19.032 Primary osteoarthritis, left wrist | CPT/HCPCS: 73030; 96372 ==

== ENCOUNTER → 2018-01-13 | Outpatient (REF) | payer MEDICARE | LOC: M SMT 13:05 | DX: N39.0 Urinary tract infection, site not specified (principal) | CPT/HCPCS: 87086 ==

== ENCOUNTER → 2018-04-11 | Outpatient (REF) | payer OTHER ==
[2018-04-11 18:20] LABS: HEMATOCRIT 40.7 % (42.0-52.0); HEMOGLOBIN 13.8 g/dl (13.5-17.5); MEAN CORPUSCULAR HGB CONC 33.9 g/dl (32.0-36.5); MEAN CORPUSCULAR VOLUME 94.4 fl (80.0-96.0); PLATELET COUNT, AUTOMATED 213 10^3/uL (150-450); RED BLOOD COUNT 4.31 10^6/uL (4.30-6.10); RED CELL DISTRIBUTION WIDTH 13.2 % (11.5-14.5); WHITE BLOOD COUNT 7.6 10^3/uL (4.0-10.0)
[2018-04-11 19:07] LABS: ALBUMIN 3.7 GM/DL (3.2-5.2); ALBUMIN/GLOBULIN RATIO 1.06 (1.00-1.93); ALKALINE PHOSPHATASE 63 U/L (45-117); ALT/SGPT 40 U/L (12-78); ANION GAP 7 MEQ/L (8-16); AST/SGOT 22 U/L (7-37); BILIRUBIN,TOTAL 0.7 MG/DL (0.2-1.0); BLOOD UREA NITROGEN 18 MG/DL (7-18); CALCIUM LEVEL 8.9 MG/DL (8.8-10.2); CARBON DIOXIDE LEVEL 29 MEQ/L (21-32); CHLORIDE LEVEL 106 MEQ/L (98-107); CREATININE FOR GFR 1.26 MG/DL (0.70-1.30); GLOMERULAR FILTRATION RATE > 60.0 (>49); GLUCOSE, FASTING 92 MG/DL (70-100); POTASSIUM SERUM 4.1 MEQ/L (3.5-5.1); SODIUM LEVEL 142 MEQ/L (136-145); TOTAL PROTEIN 7.2 GM/DL (6.4-8.2)
== END ==
LOC: M SFHCPLAZ 13:51
DX: R09.89 Other specified symptoms and signs involving the circulatory and respiratory systems (principal); R30.0 Dysuria

== ENCOUNTER → 2018-04-11 | Outpatient (CLI) | payer OTHER | LOC: M WUC 15:45 | DX: R09.89 Other specified symptoms and signs involving the circulatory and respiratory systems (principal) | CPT/HCPCS: 71046 ==

== ENCOUNTER → 2018-05-09 | Outpatient (REF) | payer OTHER ==
[2018-05-09 19:03] LABS: APPEARANCE, URINE CLEAR (CLEAR); BACTERIA, URINE AUTO NEGATIVE (NEGATIVE); BILIRUBIN, URINE AUTO NEGATIVE (NEGATIVE); BLOOD, URINE BLOOD NEGATIVE (NEGATIVE); COLOR, URINE YELLOW (YELLOW); GLUCOSE, URINE (UA) AUTO NEGATIVE (NEGATIVE); KETONE, URINE AUTO NEGATIVE (NEGATIVE); LEUKOCYTE ESTERASE, URINE AUTO NEGATIVE (NEGATIVE); MUCUS, URINE SMALL (NEGATIVE); NITRITE, URINE AUTO NEGATIVE (NEGATIVE); PROTEIN, URINE AUTO NEGATIVE (NEGATIVE); RBC, URINE AUTO 0 /HPF (0-3); SPECIFIC GRAVITY URINE AUTO 1.009 (1.002-1.035); SQUAMOUS EPITHELIAL CELL UR AU 0 /HPF (0-6); UROBILINOGEN, URINE AUTO 0.2 mg/dL (0.0-2.0); WBC, URINE AUTO 1 /HPF (0-3)
== END ==
LOC: M SMT 17:21
DX: N30.00 Acute cystitis without hematuria (principal)
CPT/HCPCS: 81001

== ENCOUNTER → 2018-06-19 | Outpatient (CLI) | payer OTHER ==
[2018-06-19 19:47] LABS: HEMATOCRIT 40.7 % (42.0-52.0); HEMOGLOBIN 13.7 g/dl (13.5-17.5); MEAN CORPUSCULAR HEMOGLOBIN 31.5 pg (27.0-33.0); MEAN CORPUSCULAR HGB CONC 33.7 g/dl (32.0-36.5); MEAN CORPUSCULAR VOLUME 93.6 fl (80.0-96.0); PLATELET COUNT, AUTOMATED 224 10^3/uL (150-450); RED BLOOD COUNT 4.35 10^6/uL (4.30-6.10); RED CELL DISTRIBUTION WIDTH 12.5 % (11.5-14.5)
[2018-06-19 19:55] LABS: ANION GAP 8 MEQ/L (8-16); BLOOD UREA NITROGEN 25 MG/DL (7-18); CALCIUM LEVEL 8.9 MG/DL (8.8-10.2); CARBON DIOXIDE LEVEL 26 MEQ/L (21-32); CHLORIDE LEVEL 105 MEQ/L (98-107); CREATININE FOR GFR 1.46 MG/DL (0.70-1.30); GLOMERULAR FILTRATION RATE 52.3 (>49); GLUCOSE, FASTING 111 MG/DL (70-100); POTASSIUM SERUM 4.3 MEQ/L (3.5-5.1); SODIUM LEVEL 139 MEQ/L (136-145)
[2018-06-19 19:57] LABS: INR 1.05; PROTHROMBIN TIME 13.8 SECONDS (12.1-14.4)
[2018-06-19 19:58] LABS: PARTIAL THROMBOPLASTIN TIME 35.9 SECONDS (25.4-37.6)
== END ==
LOC: M WUC 16:54
DX: Z01.818 Encounter for other preprocedural examination (principal); N40.1 Benign prostatic hyperplasia with lower urinary tract symptoms; N39.0 Urinary tract infection, site not specified
CPT/HCPCS: 80048

== ENCOUNTER → 2018-06-27 | Outpatient (REF) | payer OTHER ==
[2018-06-27 17:37] LABS: APPEARANCE, URINE CLEAR (CLEAR); BACTERIA, URINE AUTO NEGATIVE (NEGATIVE); BILIRUBIN, URINE AUTO NEGATIVE (NEGATIVE); BLOOD, URINE BLOOD NEGATIVE (NEGATIVE); COLOR, URINE YELLOW (YELLOW); GLUCOSE, URINE (UA) AUTO NEGATIVE (NEGATIVE); KETONE, URINE AUTO NEGATIVE (NEGATIVE); LEUKOCYTE ESTERASE, URINE AUTO 1+ (NEGATIVE); MUCUS, URINE SMALL (NEGATIVE); NITRITE, URINE AUTO NEGATIVE (NEGATIVE); PROTEIN, URINE AUTO NEGATIVE (NEGATIVE); RBC, URINE AUTO 2 /HPF (0-3); SPECIFIC GRAVITY URINE AUTO 1.017 (1.002-1.035); SQUAMOUS EPITHELIAL CELL UR AU 0 /HPF (0-6); WBC, URINE AUTO 3 /HPF (0-3)
== END ==
LOC: M SMT 17:06
DX: N39.0 Urinary tract infection, site not specified (principal)
CPT/HCPCS: 81001

== ENCOUNTER 2018-07-05 10:24 | Day surgery (SDC) | payer OTHER ==
[2018-07-05] MEDS ORDERED: PROPOFOL 200 MG/20 ML VIAL As Ordered ×2 (10:38→10:40)
[2018-07-05] MEDS ORDERED: LIDOCAINE 2% INJ 100 MG/5 ML SDV (FOR ANES.) As Ordered (10:38)
[2018-07-05] MEDS ORDERED: fentaNYL 100 MCG/2 ML INJECTION (J3010) As Ordered ×2 (10:38→14:56)
[2018-07-05] MEDS ORDERED: MIDAZOLAM INJ 2 MG/2 ML VIAL (J2250) As Ordered (10:38)
[2018-07-05] MEDS: LR 1,000 ML IV (11:20)
[2018-07-05] MEDS ORDERED: NS 1,000 ML IV (11:30)
[2018-07-05] MEDS ORDERED: ETOMIDATE INJ 20MG/10ML VIAL As Ordered ×2 (13:23→13:43)
[2018-07-05] MEDS: cefTRIAXone SOD 1 GM in D5W MINI-BAG PLUS 50 ML IV (13:35)
[2018-07-05] MEDS ORDERED: dexameTHASONE 4 MG/ML 1ML VIAL (J1100) As Ordered (13:41)
[2018-07-05] MEDS ORDERED: ePHEDrine SULFATE 25 MG/5 ML(5MG/ML) SYRINGE As Ordered (13:43)
[2018-07-05] MEDS ORDERED: PHENYLephrine HCL 500 MCG/5 ML (100MCG/ML) SYRINGE (J2370) As Ordered (13:43)
[2018-07-05] MEDS ORDERED: ONDANSETRON 4MG/2ML VIAL (J2405) As Ordered ×2 (13:57)
[2018-07-05] MEDS ORDERED: GLYCOPYRROLATE INJ 0.2 MG/ML 2 ML VIAL As Ordered ×2 (14:13)
[2018-07-05] MEDS ORDERED: NEOSTIGMINE 10 MG/10 ML VIAL (J2710) As Ordered ×2 (14:13)
[2018-07-05] MEDS ORDERED: FUROSEMIDE 100 MG/10 ML VIAL (J1940) As Ordered (14:39)
[2018-07-05] MEDS ORDERED: LR 1,000 ML IV (15:30)
[2018-07-05] MEDS ORDERED: ONDANSETRON 4MG/2ML VIAL (J2405) IV (15:30)
[2018-07-05] MEDS ORDERED: METOCLOPRAMIDE INJ 10MG/2ML VIAL (J2765) IV (15:30)
[2018-07-05] MEDS ORDERED: fentaNYL 100 MCG/2 ML INJECTION (J3010) IV (15:30)
[2018-07-05] MEDS ORDERED: ACETAMINOPHEN TAB 650MG DOSE (2X325MG) PO (15:30)
[2018-07-05] MEDS: PERCOCET 5MG/325MG TAB PO ×2 (15:55→16:40)
[2018-07-05] MEDS ORDERED: PERCOCET 5MG/325MG TAB As Ordered (16:39)
== END 2018-07-05 17:15 | disposition home or self-care (01) ==
LOC: M SDC 10:24
DX: N40.1 Benign prostatic hyperplasia with lower urinary tract symptoms (principal)
CPT/HCPCS: 52601

== ENCOUNTER → 2018-07-15 | Outpatient (REF) | payer OTHER ==
[2018-07-15 18:47] LABS: APPEARANCE, URINE HAZY (CLEAR); BACTERIA, URINE AUTO 1+ (NEGATIVE); BILIRUBIN, URINE AUTO NEGATIVE (NEGATIVE); BLOOD, URINE BLOOD 3+ (NEGATIVE); COLOR, URINE YELLOW (YELLOW); GLUCOSE, URINE (UA) AUTO NEGATIVE (NEGATIVE); KETONE, URINE AUTO NEGATIVE (NEGATIVE); LEUKOCYTE ESTERASE, URINE AUTO 3+ (NEGATIVE); MUCUS, URINE SMALL (NEGATIVE); NITRITE, URINE AUTO POSITIVE (NEGATIVE); PROTEIN, URINE AUTO 2+ mg/dL (NEGATIVE); RBC, URINE AUTO TNTC /HPF (0-3); SPECIFIC GRAVITY URINE AUTO 1.017 (1.002-1.035); SQUAMOUS EPITHELIAL CELL UR AU 1 /HPF (0-6); UROBILINOGEN, URINE AUTO 0.2 mg/dL (0.0-2.0); WBC, URINE AUTO 174 /HPF (0-3)
== END ==
LOC: M SMT 15:37
DX: N39.0 Urinary tract infection, site not specified (principal)
CPT/HCPCS: 81001

== ENCOUNTER 2018-07-20 15:31 | Emergency (ER) | payer OTHER ==
[2018-07-20 16:49] LABS: BASO % 0.6 % (0.0-1.0); EOS # 0.1 10^3/uL (0.0-0.50); EOS % 1.3 % (0.0-3.0); HEMOGLOBIN 15.2 g/dl (13.5-17.5); IMMATURE GRANULOCYTE % 0.3 % (0-3.0); LYMPH # 1.5 10^3/uL (1.5-4.5); LYMPH % 21.7 % (24.0-44.0); MEAN CORPUSCULAR HEMOGLOBIN 31.6 pg (27.0-33.0); MEAN CORPUSCULAR HGB CONC 33.8 g/dl (32.0-36.5); MEAN CORPUSCULAR VOLUME 93.6 fl (80.0-96.0); MONO # 0.8 10^3/uL (0.0-0.8); MONO % 11.5 % (0.0-5.0); NEUTROPHILS # 4.6 10^3/uL (1.8-7.7); NEUTROPHILS % 64.6 % (36.0-66.0); PLATELET COUNT, AUTOMATED 267 10^3/uL (150-450); RED BLOOD COUNT 4.81 10^6/uL (4.30-6.10); RED CELL DISTRIBUTION WIDTH 12.2 % (11.5-14.5)
[2018-07-20 17:05] LABS: APPEARANCE, URINE CLOUDY (CLEAR); BACTERIA, URINE AUTO 3+ (NEGATIVE); BILIRUBIN, URINE AUTO NEGATIVE (NEGATIVE); BLOOD, URINE BLOOD 3+ (NEGATIVE); COLOR, URINE AMBER (YELLOW); GLUCOSE, URINE (UA) AUTO NEGATIVE (NEGATIVE); KETONE, URINE AUTO TRACE mg/dL (NEGATIVE); LEUKOCYTE ESTERASE, URINE AUTO 3+ (NEGATIVE); NITRITE, URINE AUTO POSITIVE (NEGATIVE); PROTEIN, URINE AUTO 3+ mg/dL (NEGATIVE); RBC, URINE AUTO TNTC /HPF (0-3); SPECIFIC GRAVITY URINE AUTO 1.025 (1.002-1.035); SQUAMOUS EPITHELIAL CELL UR AU 1 /HPF (0-6); WBC, URINE AUTO TNTC /HPF (0-3); YEAST LIKE CELL URINE AUTO SMALL
[2018-07-20 17:11] LABS: INR 1.07; PROTHROMBIN TIME 14.1 SECONDS (12.1-14.4)
[2018-07-20 17:17] LABS: LACTIC ACID SEPSIS PROTOCOL 1.7 MMOL/L (0.4-2.0)
[2018-07-20 17:17] LABS: ALBUMIN/GLOBULIN RATIO 1.11 (1.00-1.93); ALKALINE PHOSPHATASE 86 U/L (45-117); ALT/SGPT 31 U/L (12-78); AMYLASE 45 U/L (25-115); ANION GAP 11 MEQ/L (8-16); AST/SGOT 17 U/L (7-37); BILIRUBIN,DIRECT 0.2 MG/DL (0.0-0.2); BILIRUBIN,TOTAL 0.7 MG/DL (0.2-1.0); BLOOD UREA NITROGEN 25 MG/DL (7-18); CALCIUM LEVEL 8.9 MG/DL (8.8-10.2); CARBON DIOXIDE LEVEL 22 MEQ/L (21-32); CHLORIDE LEVEL 105 MEQ/L (98-107); CREATININE FOR GFR 1.85 MG/DL (0.70-1.30); GLOMERULAR FILTRATION RATE 39.8 (>49); GLUCOSE, FASTING 84 MG/DL (70-100); POTASSIUM SERUM 4.4 MEQ/L (3.5-5.1); SODIUM LEVEL 138 MEQ/L (136-145); TOTAL PROTEIN 7.6 GM/DL (6.4-8.2)
[2018-07-20 17:20] LABS: PARTIAL THROMBOPLASTIN TIME 36.3 SECONDS (25.4-37.6)
[2018-07-20] MEDS: cefTRIAXone SOD 1 GM in D5W MINI-BAG PLUS 50 ML IV (17:30)
[2018-07-20] MEDS: PHENAZOPYRIDINE 100 MG TAB PO (17:30)
[2018-07-20] MEDS: CIPROFLOXACIN 500 MG TAB PO (17:45)
== END 2018-07-20 19:24 | disposition home or self-care (01) ==
LOC: M ED 15:31
DX: N39.0 Urinary tract infection, site not specified (principal); J44.9 Chronic obstructive pulmonary disease, unspecified; I10 Essential (primary) hypertension; K21.9 Gastro-esophageal reflux disease without esophagitis; N40.0 Benign prostatic hyperplasia without lower urinary tract symptoms; E78.5 Hyperlipidemia, unspecified; Z79.899 Other long term (current) drug therapy; Z79.82 Long term (current) use of aspirin; Z88.5 Allergy status to narcotic agent; Z88.8 Allergy status to other drugs, medicaments and biological substances; F17.210 Nicotine dependence, cigarettes, uncomplicated
CPT/HCPCS: J0696

== ENCOUNTER → 2018-07-24 | Outpatient (REF) | payer OTHER | LOC: M SMT 17:12 | DX: N39.0 Urinary tract infection, site not specified (principal) | CPT/HCPCS: 87086 ==

== ENCOUNTER → 2018-07-31 | Outpatient (REF) | payer OTHER ==
[2018-07-31 13:34] LABS: APPEARANCE, URINE CLOUDY (CLEAR); BACTERIA, URINE AUTO 1+ (NEGATIVE); BILIRUBIN, URINE AUTO NEGATIVE (NEGATIVE); BLOOD, URINE BLOOD 3+ (NEGATIVE); CALCIUM OXALATE CRYSTALS SMALL; COLOR, URINE AMBER (YELLOW); GLUCOSE, URINE (UA) AUTO NEGATIVE (NEGATIVE); KETONE, URINE AUTO TRACE mg/dL (NEGATIVE); LEUKOCYTE ESTERASE, URINE AUTO 3+ (NEGATIVE); MUCUS, URINE SMALL (NEGATIVE); NITRITE, URINE AUTO NEGATIVE (NEGATIVE); PROTEIN, URINE AUTO 2+ mg/dL (NEGATIVE); RBC, URINE AUTO TNTC /HPF (0-3); SPECIFIC GRAVITY URINE AUTO 1.024 (1.002-1.035); SQUAMOUS EPITHELIAL CELL UR AU 2 /HPF (0-6); WBC, URINE AUTO TNTC /HPF (0-3); YEAST LIKE CELL URINE AUTO SMALL
== END ==
LOC: M SMT 12:48
DX: N39.0 Urinary tract infection, site not specified (principal)
CPT/HCPCS: 81001

== ENCOUNTER → 2019-01-04 | Outpatient (CLI) | payer OTHER ==
[~2019-01-04] MED LIST changes: -/AMLO25TA PO; -/FENO14TA PO; -/FENO48TA PO; -AMLO10TA2 PO; +AMLO10TA5 PO; +ASPI-1 PO; -ASPI325T PO; +CIPR-249 PO; +FLUT1INH3 INH; +NITR100C2 PO; +NORV2TAB PO; +OXYC1TAB23 PO; +PYRI1TAB5 PO; +RANI-280 PO; -TERA1CA PO; +TERA1CAP46 PO; +TRIC145T19 PO; +TRIC1TAB PO
[2019-01-04 16:06] LABS: BASO % 0.5 % (0.0-1.0); EOS # 0.1 10^3/uL (0.0-0.50); EOS % 1.6 % (0.0-3.0); HEMATOCRIT 43.5 % (42.0-52.0); HEMOGLOBIN 14.3 g/dl (13.5-17.5); LYMPH # 1.9 10^3/uL (1.5-4.5); LYMPH % 24.8 % (24.0-44.0); MEAN CORPUSCULAR HEMOGLOBIN 31.2 pg (27.0-33.0); MEAN CORPUSCULAR HGB CONC 32.9 g/dl (32.0-36.5); MONO # 0.8 10^3/uL (0.0-0.8); MONO % 10.2 % (0.0-5.0); NEUTROPHILS # 4.7 10^3/uL (1.8-7.7); NEUTROPHILS % 62.4 % (36.0-66.0); PLATELET COUNT, AUTOMATED 221 10^3/uL (150-450); RED BLOOD COUNT 4.58 10^6/uL (4.30-6.10); WHITE BLOOD COUNT 7.5 10^3/uL (4.0-10.0)
[2019-01-04 16:07] LABS: BILIRUBIN,TOTAL 0.6 MG/DL (0.2-1.0); CALCIUM LEVEL 9.3 MG/DL (8.8-10.2); CHOLESTEROL RISK RATIO 3.4 (<5); CREATININE FOR GFR 1.48 MG/DL (0.70-1.30); GLOMERULAR FILTRATION RATE 51.3 (>49); POTASSIUM SERUM 4.7 MEQ/L (3.5-5.1); TOTAL PROTEIN 7.1 GM/DL (6.4-8.2)
== END ==
LOC: M WUC 11:05
PROVIDERS: ATTEND Internal Medicine Cardiovascular Disease
DX: E78.00 Pure hypercholesterolemia, unspecified (principal); Z98.61 Coronary angioplasty status

== ENCOUNTER 2019-01-19 14:44 | Emergency (ER) | payer OTHER ==
[~2019-01-19] VITALS: Ht 182.9 cm; Wt 142.5 kg
[2019-01-19] MEDS ORDERED: CLOP75TA2 PO (15:01)
--- NOTE | 2019-01-19 15:20 | REP ---
Clinical: Cough and dyspnea . Comparison: 04/11/2018 . Findings: The mediastinum and cardiac silhouette are stable and within normal limits for portable technique. The lung baez are clear without acute consolidation, effusion, or pneumothorax. Skeletal structures are intact. Impression: No acute cardiopulmonary process appreciated. Electronically Signed by Nathaniel Cleary MD 01/19/2019 03:12 P
[2019-01-19 15:35] LABS: BASO % 0.5 % (0.0-1.0); EOS # 0.1 10^3/uL (0.0-0.50); EOS % 1.3 % (0.0-3.0); HEMATOCRIT 42.6 % (42.0-52.0); HEMOGLOBIN 14.4 g/dl (13.5-17.5); LYMPH # 1.2 10^3/uL (1.5-4.5); LYMPH % 18.9 % (24.0-44.0); MEAN CORPUSCULAR HEMOGLOBIN 32.4 pg (27.0-33.0); MEAN CORPUSCULAR HGB CONC 33.8 g/dl (32.0-36.5); MEAN CORPUSCULAR VOLUME 95.7 fl (80.0-96.0); MONO # 0.5 10^3/uL (0.0-0.8); MONO % 8.4 % (0.0-5.0); NEUTROPHILS # 4.5 10^3/uL (1.8-7.7); NEUTROPHILS % 70.3 % (36.0-66.0); PLATELET COUNT, AUTOMATED 230 10^3/uL (150-450); RED BLOOD COUNT 4.45 10^6/uL (4.30-6.10); WHITE BLOOD COUNT 6.3 10^3/uL (4.0-10.0)
[2019-01-19 15:37] LABS: VENOUS HCO3 23.1 MEQ/L (23.0-27.0); VENOUS O2 SATURATION 83.7 % (60.0-80.0); VENOUS PARTIAL PRESSURE O2 49.6 mmHg (30.0-50.0); VENOUS PH 7.369 UNITS (7.330-7.430); VENOUS STANDARD HCO3 22.4 MEQ/L; VENOUS TOTAL CO2 24.4 MEQ/L (24.0-28.0)
[2019-01-19 15:49] LABS: INR 1.09; PROTHROMBIN TIME 14.2 SECONDS (12.1-14.4)
[2019-01-19 16:13] LABS: ALBUMIN 3.5 GM/DL (3.2-5.2); ALT/SGPT 32 U/L (12-78); BILIRUBIN,DIRECT 0.1 MG/DL (0.0-0.2); BILIRUBIN,TOTAL 0.6 MG/DL (0.2-1.0); BLOOD UREA NITROGEN 27 MG/DL (7-18); CALCIUM LEVEL 8.8 MG/DL (8.8-10.2); CARBON DIOXIDE LEVEL 24 MEQ/L (21-32); CHLORIDE LEVEL 107 MEQ/L (98-107); CPK CREATINE PHOSPHOKINASE 83 U/L (39-308); CREATININE FOR GFR 1.53 MG/DL (0.70-1.30); GLOMERULAR FILTRATION RATE 49.3 (>49); GLUCOSE, FASTING 140 MG/DL (70-100); MB/CK RELATIVE INDEX 3.37 (< OR =4); NT-PRO BNP 99 PG/ML (<125); POTASSIUM SERUM 4.1 MEQ/L (3.5-5.1); SODIUM LEVEL 139 MEQ/L (136-145); TOTAL PROTEIN 7.4 GM/DL (6.4-8.2); TROPONIN I < 0.02 NG/ML (< 0.10)
[2019-01-19] MEDS ORDERED: IPRATROPIUM 0.5MG/ALBUTEROL 2.5MG INH SOL UD 3ML (DUONEB)(J7620) NEB ONE (17:15)
[2019-01-19] MEDS ORDERED: ISOVUE-370 76% 100ML VIAL (Q9967) As Ordered ONE (17:19)
--- NOTE | 2019-01-19 17:52 | REP ---
Clinical: Acute chest pain and shortness of breath Comparison: 04/20/2017 . Technique: Axial contrast enhanced images from the thoracic inlet to the upper abdomen using 100 ml Isovue 370 intravenous contrast material with coronal and sagittal re-formations. Findings: Satisfactory enhancement of the pulmonary vasculature is achieved and no filling defects are identified to suggest pulmonary embolus. Atherosclerotic changes to the thoracic aorta and coronary arteries noted without aortic aneurysm or dissection. No evidence for cardiomegaly or pericardial effusion. The lung baez demonstrate mildly progressive fibroatelectatic changes similar to prior examination. No acute consolidation. No effusion. No pneumothorax. Impression: No evidence for pulmonary embolus. Mild chronic changes. No obvious acute mediastinal or pleuroparenchymal process appreciated. Electronically Signed by Nathaniel Cleary MD 01/19/2019 05:43 P
[2019-01-19 18:16] VITALS: BP 184/86
[2019-01-19] MEDS ORDERED: PRED20TA PO (18:19)
[2019-01-19] MEDS ORDERED: predniSONE 20 MG TAB PO ONE (18:30)
--- NOTE | 2019-01-19 22:32 | ECGEPIP ---
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
== END 2019-01-19 18:52 | disposition home or self-care (01) ==
LOC: M ED 14:44
DX: J45.909 Unspecified asthma, uncomplicated (principal); K21.9 Gastro-esophageal reflux disease without esophagitis; K76.0 Fatty (change of) liver, not elsewhere classified; E78.5 Hyperlipidemia, unspecified; M54.9 Dorsalgia, unspecified; I10 Essential (primary) hypertension; I49.9 Cardiac arrhythmia, unspecified; J44.9 Chronic obstructive pulmonary disease, unspecified; F17.210 Nicotine dependence, cigarettes, uncomplicated; Z79.51 Long term (current) use of inhaled steroids; Z79.82 Long term (current) use of aspirin; Z79.891 Long term (current) use of opiate analgesic; Z79.899 Other long term (current) drug therapy; Z88.5 Allergy status to narcotic agent; Z88.8 Allergy status to other drugs, medicaments and biological substances; Z95.5 Presence of coronary angioplasty implant and graft
CPT/HCPCS: 71045; 71275; 80048; 80076; 82550; 82553; 82803; 83605; 83880; 84443; 85025; 85610; 87040; 93005; 93041; 94640; 99285; Q9967

== ENCOUNTER → 2019-01-25 | Outpatient (CLI) | payer OTHER ==
[~2019-01-25] MED LIST changes: +CLOP75TA2 PO; +PRED20TA PO
[2019-01-25 13:40] LABS: ALBUMIN 3.9 GM/DL (3.2-5.2); BILIRUBIN,TOTAL 0.5 MG/DL (0.2-1.0); CHOLESTEROL RISK RATIO 3.465 (<5); CREATININE FOR GFR 1.54 MG/DL (0.70-1.30); POTASSIUM SERUM 4.3 MEQ/L (3.5-5.1); THYROID STIMULATING HORMONE 1.34 uIU/ML (0.358-3.740); TOTAL PROTEIN 7.2 GM/DL (6.4-8.2)
[2019-01-25 13:48] LABS: HEMOGLOBIN A1c 6.4 %
== END ==
LOC: M WUC 09:09
PROVIDERS: ATTEND Nurse Practitioner Adult Health
DX: Z00.00 Encounter for general adult medical examination without abnormal findings (principal); R73.9 Hyperglycemia, unspecified; I12.9 Hypertensive chronic kidney disease with stage 1 through stage 4 chronic kidney disease, or unspecified chronic kidney disease; Z98.61 Coronary angioplasty status; K76.0 Fatty (change of) liver, not elsewhere classified; Z12.5 Encounter for screening for malignant neoplasm of prostate

== ENCOUNTER → 2019-03-23 | Outpatient (CLI) | payer OTHER ==
[2019-03-23 16:44] LABS: CREATININE FOR GFR 1.63 MG/DL (0.70-1.30); GLOMERULAR FILTRATION RATE 45.9 (>49)
== END ==
LOC: M WUC 14:13
PROVIDERS: ATTEND Physician Assistant Surgical
DX: M54.5 Low back pain (principal)

== ENCOUNTER 2019-05-14 11:26 | Emergency (ER) | payer OTHER ==
[~2019-05-14] VITALS: Ht 182.9 cm; Wt 137.1 kg
[~2019-05-14 11:26] MED LIST changes: -ALFU10TA2 PO; +ALFU10TA3 PO
--- NOTE | 2019-05-14 12:57 | REP ---
PA and lateral chest: Varices are 04/11/2018 and 01/19/2019. There is a small focal density in the left costophrenic angle as an interval change. This could be a pleural effusion or a small infiltrate. Remainder the lung baez are clear and unchanged. Cardiac size is upper normal. The marcella, mediastinum, skeletal structures are unremarkable. Impression: New small focal density in the left costophrenic angle, infiltrate/effusion. Electronically Signed by Lupillo Godinez MD 05/14/2019 12:49 P
[2019-05-14 12:58] LABS: BASO % 0.5 % (0.0-1.0); EOS % 0.6 % (0.0-3.0); HEMATOCRIT 38.2 % (42.0-52.0); HEMOGLOBIN 13.2 g/dl (13.5-17.5); LYMPH # 1.5 10^3/uL (1.5-5.0); LYMPH % 22.4 % (24.0-44.0); MEAN CORPUSCULAR HEMOGLOBIN 32.4 pg (27.0-33.0); MEAN CORPUSCULAR HGB CONC 34.6 g/dl (32.0-36.5); MEAN CORPUSCULAR VOLUME 93.9 fl (80.0-96.0); MONO # 0.7 10^3/uL (0.0-0.8); MONO % 10.3 % (0.0-5.0); NEUTROPHILS # 4.3 10^3/uL (1.5-8.5); NEUTROPHILS % 65.7 % (36.0-66.0); PLATELET COUNT, AUTOMATED 215 10^3/uL (150-450); RED BLOOD COUNT 4.07 10^6/uL (4.30-6.10); WHITE BLOOD COUNT 6.5 10^3/uL (4.0-10.0)
[2019-05-14 13:10] LABS: INR 1.12; PROTHROMBIN TIME 14.1 SECONDS (11.8-14.0)
[2019-05-14 13:25] LABS: BLOOD UREA NITROGEN 26 MG/DL (7-18); CALCIUM LEVEL 9.4 MG/DL (8.8-10.2); CARBON DIOXIDE LEVEL 24 MEQ/L (21-32); CHLORIDE LEVEL 107 MEQ/L (98-107); CK-MB VALUE MASS 1.4 NG/ML (<3.6); CPK CREATINE PHOSPHOKINASE 82 U/L (39-308); CREATININE FOR GFR 1.52 MG/DL (0.70-1.30); GLOMERULAR FILTRATION RATE 49.7 (>49); GLUCOSE, FASTING 99 MG/DL (70-100); MB/CK RELATIVE INDEX 1.71 (< OR =4); POTASSIUM SERUM 4.6 MEQ/L (3.5-5.1); SODIUM LEVEL 140 MEQ/L (136-145); TROPONIN I < 0.02 NG/ML (< 0.10)
[2019-05-14] MEDS ORDERED: methylPREDNISolone INJ 125 MG/2 ML VIAL (J2930) IV ONE (14:00)
[2019-05-14] MEDS ORDERED: ISOVUE-370 76% 100ML VIAL (Q9967) As Ordered ONE (14:02)
[2019-05-14] MEDS: IPRATROPIUM 0.5MG/ALBUTEROL 2.5MG INH SOL UD 3ML (DUONEB)(J7620) NEB PRN ×3 (14:15→14:52)
[2019-05-14 14:25] LABS: FREE T4 1.24 NG/DL (0.76-1.46); MAGNESIUM LEVEL 2.1 MG/DL (1.8-2.4)
--- NOTE | 2019-05-14 14:59 | REP ---
CT PULMONARY ANGIOGRAM: With IV contrast. HISTORY: Shortness of breath, evaluate infiltrate versus effusion. Comparison is made with today's CT study. COMPARISON STUDIES: Comparison CT pulmonary angiogram January 19, 2019. CONTRAST DOSE: 75 mL of Isovue [address] TECHNIQUE: Helical scanning is acquired and overlapping 1.5 mm and contiguous 3 mm axial images are reformatted. In addition, maximum intensity projection and multiplanar re-formation images are generated in sagittal and coronal imaging projections. CT PULMONARY ANGIOGRAPHIC FINDINGS: There is good opacification of the pulmonary arterial tree and there is no CT evidence of pulmonary embolism. Maximal intensity projection images show no filling defect or vessel cutoff. The thoracic aorta enhances homogeneously. No evidence of aneurysm or dissection is seen. There is moderate multifocal vascular calcification. There is moderate left and right coronary artery vascular calcification. There is no evidence of hilar or mediastinal mass or adenopathy. No free pleural effusion is seen. There is a bibasilar pattern of plate-like atelectasis affecting the right lower lobe lingula and left lower lobe. No infiltrate is seen. There is no evidence of pulmonary nodule or mass lesion. Bone window settings show no bony destructive lesion. IMPRESSION: No CT evidence of pulmonary embolus. Bibasilar plate-like atelectatic changes. No evidence of pleural effusion. Otherwise no acute disease. Electronically Signed by Francisco Ludwig MD 05/14/2019 05:18 P
[2019-05-14 15:34] VITALS: O2SAT 94
[2019-05-14] MEDS ORDERED: PRED20TA PO (16:25)
[2019-05-14 16:30] VITALS: BP 138/78
--- NOTE | 2019-05-14 20:24 | ED PDOC ---
Post-Departure Follow-Up apurva mason faxed formal report of cxr for fu Bhargav Contreras MD May 14, 2019 20:24
--- NOTE | 2019-05-14 21:52 | ECGEPIP ---
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
[2019-07-05] MEDS ORDERED: OXYC1TAB23 PO (11:31)
[2019-09-02] MEDS ORDERED: BACT800T5 PO (18:50)
[2019-09-02] MEDS ORDERED: PRED20TA PO (18:50)
[2019-09-06] MEDS ORDERED: LEVA750T7 PO (12:13)
== END 2019-05-14 16:39 | disposition home or self-care (01) ==
LOC: M ED 11:26
DX: J44.1 Chronic obstructive pulmonary disease with (acute) exacerbation (principal); R94.31 Abnormal electrocardiogram [ECG] [EKG]; I25.10 Atherosclerotic heart disease of native coronary artery without angina pectoris; I11.9 Hypertensive heart disease without heart failure; E66.9 Obesity, unspecified; E78.5 Hyperlipidemia, unspecified; M54.9 Dorsalgia, unspecified; G89.29 Other chronic pain; K21.9 Gastro-esophageal reflux disease without esophagitis; G47.30 Sleep apnea, unspecified; F17.210 Nicotine dependence, cigarettes, uncomplicated; Z95.5 Presence of coronary angioplasty implant and graft; Z86.14 Personal history of Methicillin resistant Staphylococcus aureus infection; Z79.01 Long term (current) use of anticoagulants; Z79.51 Long term (current) use of inhaled steroids; Z79.82 Long term (current) use of aspirin; Z79.891 Long term (current) use of opiate analgesic; Z79.899 Other long term (current) drug therapy; Z88.5 Allergy status to narcotic agent; Z88.8 Allergy status to other drugs, medicaments and biological substances
CPT/HCPCS: 71046; 71275; 80048; 82550; 82553; 83735; 84439; 84443; 85025; 85610; 87486; 87581; 87633; 87798; 93005; 94640; 96374; 99284; J2930; Q9967

== ENCOUNTER → 2019-07-10 | Outpatient (CLI) | payer OTHER ==
[~2019-07-10] MED LIST changes: +ALFU10TA2 PO; -ALFU10TA3 PO; +ISOVUE-370 76% 100ML VIAL (Q9967) As Ordered ONE
--- NOTE | 2019-07-10 16:45 | REP ---
CT neck soft tissues: 07/10/2019. Indication: Neck mass. Comparison: None. Technique: Axial images of the neck soft tissues were obtained following IV administration of 75 ml Isovue 370. Findings: There are no abnormal solid soft tissue masses, fluid collections or cervical lymphadenopathy. Cervical spine spondylosis is present without severe spinal canal narrowing detected. Bilateral carotid atherosclerotic disease is present without severe ICA narrowing detected. The visualized lungs are clear. Impression: No abnormal solid soft tissue mass, abnormal fluid collection or cervical lymphadenopathy. Carotid atherosclerotic disease. Electronically Signed by Douglas Sanchez DO 07/10/2019 04:37 P
== END ==
LOC: M RAD 15:48
PROVIDERS: ATTEND Specialist
DX: D38.0 Neoplasm of uncertain behavior of larynx (principal); I65.23 Occlusion and stenosis of bilateral carotid arteries
CPT/HCPCS: 70491; Q9967

== ENCOUNTER 2019-07-16 07:59 | Day surgery (SDC) | payer OTHER ==
[~2019-07-16] VITALS: Ht 182.9 cm; Wt 137.4 kg
[~2019-07-16 07:59] MED LIST changes: -ISOVUE-370 76% 100ML VIAL (Q9967) As Ordered ONE; +LR 1,000 ML IV ONE; +PROPOFOL 200 MG/20 ML VIAL As Ordered ONE
[2019-07-16] MEDS ORDERED: PROPOFOL 200 MG/20 ML VIAL As Ordered ONE (08:16)
[2019-07-16] MEDS ORDERED: dexameTHASONE 4 MG/ML 1ML VIAL (J1100) As Ordered ONE (08:17)
[2019-07-16] MEDS ORDERED: fentaNYL 100 MCG/2 ML INJECTION (J3010) As Ordered ONE (08:17)
[2019-07-16] MEDS ORDERED: LIDOCAINE 2% INJ 100 MG/5 ML SDV (FOR ANES.) As Ordered ONE (08:17)
[2019-07-16] MEDS ORDERED: ONDANSETRON 4MG/2ML VIAL (J2405) As Ordered ONE (08:17)
[2019-07-16] MEDS ORDERED: ROCURONIUM BROMIDE 50 MG/5 ML VIAL As Ordered ONE (08:17)
[2019-07-16] MEDS ORDERED: MIDAZOLAM INJ 2 MG/2 ML VIAL (J2250) As Ordered ONE (08:17)
[2019-07-16] MEDS ORDERED: CHAN1PAK13 PO (08:52)
[2019-07-16] MEDS ORDERED: CETACAINE SPRAY 5GM As Ordered ONE (09:35)
[2019-07-16] MEDS ORDERED: EPINEPHrine 1MG/ML INJ 30ML MD-VIAL As Ordered ONE (09:35)
[2019-07-16] MEDS ORDERED: ePHEDrine SULFATE 25 MG/5 ML(5MG/ML) SYRINGE As Ordered ONE (10:15)
[2019-07-16] MEDS ORDERED: PERCOCET 5MG/325MG TAB As Ordered ONE (11:03)
[2019-07-16] MEDS ORDERED: PERCOCET 5MG/325MG TAB PO PRN (11:15)
[2019-07-16] MEDS ORDERED: fentaNYL 100 MCG/2 ML INJECTION (J3010) IV PRN (11:15)
[2019-07-16] MEDS ORDERED: HYDROcodone/APAP LIQUID 7.5-325MG 15ML UDC (LORTAB ELIXIR) PO PRN (11:15)
[2019-07-16] MEDS ORDERED: LR 1,000 ML IV SCH (11:15)
[2019-07-16 12:16] VITALS: BP 125/78
--- NOTE | 2019-07-17 11:26 | RO ---
DATE OF PROCEDURE: 07/16/2019 PREPROCEDURE DIAGNOSIS: Squamous carcinoma of the supraglottic larynx. POSTPROCEDURE DIAGNOSIS: Squamous carcinoma of the supraglottic larynx. PROCEDURE: 1. Microdirect laryngoscopy with photomicrography and biopsy of lesion of the epiglottis. 2. Cervical esophagoscopy. SURGEON: Dr. Baldomero Modi. SUPERVISOR LUMP ROOM: ANESTHESIA: General endotracheal anesthesia. INDICATION: This is a 63-year-old patient with a long history of smoking presents with chronic sore throat. Examination suggests the presence of a lesion of the laryngeal surface of the epiglottis. DESCRIPTION OF PROCEDURE: Under satisfactory general endotracheal anesthesia administered using the small endotracheal tube. The patient was placed in the usual position for endoscopy. Double-lighted DEDO laryngoscope was inserted in the oropharynx. Complete inspection of the oropharynx, base of tongue and hypopharynx was performed. The scope was then advanced into the glottic vestibule. As it was slipping under the epiglottis, an exophytic granular lesion appeared on the laryngeal surface of the epiglottis starting approximately two-thirds the way superiorly on the epiglottis heading into the right side of the epiglottis towards the laryngeal aperture. The anterior commissure appeared to be free of disease. The vocal cords were visualized and appeared to be free of any lesions. With the double-lighted scopes ascended, photographs were taken. Then using a cup forceps several large biopsies were taken of the suspicious-looking lesion, which occupied approximately 40% of the laryngeal surface of the epiglottis mostly from the right side to the central portion of it. The lingual surface of the epiglottis was totally normal. After biopsy was performed suctioning of the larynx was performed. There was no significant bleeding encountered. Next, a cervical esophagus scope was lubricated and advanced into the posterior cricoid region into the upper cervical esophagus. No suspicious lesions were seen. 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 Pending biopsies plans were will be made. Patient tolerated the procedure well. Was awakened and extubated and sent to the recovery room in satisfactory condition.
== END 2019-07-16 12:43 | disposition home or self-care (01) ==
LOC: M SDC 07:59
PROVIDERS: ATTEND Specialist
DX: C32.1 Malignant neoplasm of supraglottis (principal); E78.5 Hyperlipidemia, unspecified; K76.0 Fatty (change of) liver, not elsewhere classified; N18.3 Chronic kidney disease, stage 3 (moderate); I12.9 Hypertensive chronic kidney disease with stage 1 through stage 4 chronic kidney disease, or unspecified chronic kidney disease; J44.9 Chronic obstructive pulmonary disease, unspecified; N40.0 Benign prostatic hyperplasia without lower urinary tract symptoms; K21.9 Gastro-esophageal reflux disease without esophagitis; I25.10 Atherosclerotic heart disease of native coronary artery without angina pectoris; Z98.61 Coronary angioplasty status; Z87.891 Personal history of nicotine dependence; Z88.5 Allergy status to narcotic agent; Z88.8 Allergy status to other drugs, medicaments and biological substances; Z79.82 Long term (current) use of aspirin; Z79.899 Other long term (current) drug therapy
CPT/HCPCS: 31536; 43191; 88305; J1100; J2250; J2405; J3010

== ENCOUNTER → 2019-08-02 | Outpatient (CLI) | payer OTHER ==
[~2019-08-02] MED LIST changes: -ALFU10TA2 PO; +ALFU10TA3 PO; +CHAN1PAK13 PO; -LR 1,000 ML IV ONE; -PROPOFOL 200 MG/20 ML VIAL As Ordered ONE
--- NOTE | 2019-08-03 07:37 | RADONC ---
RADIATION ONCOLOGY CONSULTATION NOTE DATE: 08/02/2019 CHART #: [id number] DIAGNOSIS: Supraglottic larynx cancer. STAGE: I, T1N0M0 versus Stage II, T2N0M0, further staging in progress. ECOG PERFORMANCE STATUS: 0. CONSULTATION NOTE: Mr. Mishra is a 63-year-old white male with multiple comorbidities and medical illnesses who more recently developed some discomfort upon swallowing and was referred to the ENT physicians. Examination revealed an irregular raised superficial exophytic patchy mass on the laryngeal surface of the epiglottis. 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 A CT scan of the neck was done on 07/10/2019 and showed no abnormal soft tissue masses. The patient is now being referred to me for consideration of external beam radiation therapy as a therapeutic option. PAST MEDICAL HISTORY: The patient's past medical history is positive for hypertension, hyperlipidemia, arthritis, orchitis, GERD, COPD, fatty liver disease, tobacco abuse, obesity, BMI 39, cardiac catheterization with CAD, a history of MRSA. He also has had a tonsillectomy and adenoidectomy as a child. He had right knee surgery in the . He had a skin graft in 1984. He had a tracheostomy due to epiglottitis in 1991. He had a diskectomy in 2006 and 2005. He had left hip replacement in October 2008. He had right hip replacement in November 2008. He had lumbar laminectomy on November 03, 2008. His cardiac stent was done on 12/31/2015. He had cardiac catheterization on October 2016. Another cardiac stent was done in May 2017. TURP was done 07/05/2018. He had another heart stent placed in December 2014. He is on Plavix. SOCIAL HISTORY: The patient just quit smoking this year. He had smoked most of his life at least one pack of cigarettes per day. He drinks alcohol. ALLERGIES: The patient is allergic to MORPHINE and ADENOSINE. Also, MARIA DE JESUS INHIBITORS and REGADENOSON. FAMILY HISTORY: The patient's family history is positive for a mother with bladder cancer. REVIEW OF SYSTEMS: The patient's review of systems is positive for decreased energy and some discomfort upon swallowing, but otherwise noncontributory. Denies nausea, vomiting, fevers, chills, night sweats, diplopia, headaches, anxiety or depression, anorexia, weight loss, visual disturbances, chest pain, urinary or bowel difficulties, bone pain, or neurological problems. PHYSICAL EXAMINATION: The patient is a heavy white male in no acute distress. HEENT Exam: Normocephalic, atraumatic. Extraocular movements are intact. Oral cavity examination reveals poor dentition. There is no nodularity or ulceration in the oral cavity. There is no palpable preauricular, cervical, supraclavicular, infraclavicular or axillary lymphadenopathy present. His lungs have somewhat distant breath sounds bilaterally, but are generally clear to auscultation and percussion. Heart is a regular rate and rhythm. MEDICAL NECESSITY: IMRT/IGRT is clinically indicated for the highly conformal dose planning required. The target volume is in close proximity to critical structures, such as the normal brain, brainstem, eyes, optic nerves, spinal cord, parotid glands, and mandible. The volume of interest must be covered with narrow margins to adequately protect immediately adjacent structures. The plan requires interpretation of complex testing such as CT localization. As noted above, special planning (IMRT) and localizing (IGRT) is required and essential to maximally protect sensitive normal tissue structures which cannot be accomplished using conventional 3-dimensional planning. ASSESSMENT: I do believe this patient is a candidate for external beam radiation therapy and I have so informed him. I have discussed with the patient in detail the potential benefits as well as possible acute chronic sequelae of external beam radiation therapy. We have discussed logistics of treatment planning, simulation and subsequent fractionated daily radiation treatments. I have reviewed with the patient the NCCN guidelines for a stage I versus stage II, T1 versus T2, N0 supraglottic larynx cancer. I plan on delivering a dose of approximately 7000 cGy delivered in conventional fractionation of 200 cGy each via IMRT/IGRT. These recommendations may change, however, as the patient is not yet fully staged. I have ordered a PET/CT scan to be undertaken in order fully stage this patient before initiation of treatment planning can begin. Of further concern, the patient's dental condition is poor. I have worked closely with the nurse navigator and we are setting him up for the Medicaid dental clinic here to see if these teeth can be extracted so that radiation can be safely delivered and avoid radio osteonecrosis. We discussed this in detail with the patient and the need for this to be done. I further spoke to the patient about the need for a PEG feeding tube and we are setting him up to be seen by our surgeons for placement of that tube as well. The patient is on multiple medications and they will be hard to swallow once radiation is initiated. The patient told me he has a house in [place] and would prefer to be treated in [place]. He said he has difficulty with heating in his present house and the pipes freeze and he would like to be out of here before the winter really kicks in. Unfortunately, the patient is on Medicaid. I have contacted our nurse navigator once again as well as our financial people to see if they can arrange to have the treatment done there. We have sent records to the cancer center near his home in [place] and they will check to see whether or not they can accept his insurance down there, or if there is a way to transfer Medicaid from our state to his present home in [place]. After extraction of the teeth, it will be several weeks before he can initiate radiation and in that case he may have time to go down and have the insurance issues settled. In order to avoid any unnecessary delay, we have decided to go ahead with planning for here. Indeed, his dental appointment is set up for today already since there was a cancellation and we will expedite his other appointments as well. We are more than glad to treat him here if he wishes to stay in this area and we can accommodate and [place] cannot accommodate. cc: MD Nazia Houser RN
== END ==
LOC: M ONCR 08:57
PROVIDERS: ATTEND Radiology Radiation Oncology
DX: C32.1 Malignant neoplasm of supraglottis (principal)

== ENCOUNTER → 2019-08-14 | Outpatient (CLI) | payer OTHER ==
--- NOTE | 2019-08-17 12:36 | REP ---
REASON FOR EXAM: History of squamous cell carcinoma of the epiglottis. There are no priors for comparison. Prior CT examination of the neck, 07/10/2019, was reviewed along with the prior CT examination of the chest of 05/14/2019. After the intravenous administration of 9.51 mCi of FDG-18, triplane whole body PET/CT was performed from the skull base to the midthigh. On 07/16/2019, the patient underwent laryngeal surface biopsy of the epiglottis. Seen within the midline and particularly along the left side of the epiglottis, there is hypermetabolic activity with a maximal SUV value of 4.8. No other areas of abnormal hypermetabolic activity are seen in the neck, chest, abdomen, or pelvis. IMPRESSION: There is hypermetabolic activity seen in the region of the epiglottis as described above; however, the increased activity could, at least in part, be secondary to recurring deglutition throughout the exam. This exam needs to be correlated clinically with appropriate followup. Electronically Signed by Vel Gannon DO 08/17/2019 04:35 P
== END ==
LOC: M PLARAD 07:30
PROVIDERS: ATTEND Radiology Radiation Oncology
DX: C32.1 Malignant neoplasm of supraglottis (principal)
CPT/HCPCS: 78815; A9552

== ENCOUNTER 2019-08-29 08:21 | Day surgery (SDC) | payer OTHER ==
[~2019-08-29] VITALS: Ht 182.9 cm; Wt 138.8 kg
[2019-08-29] MEDS: NS 1,000 ML IV SCH ×2 (08:40→08:53)
[2019-08-29] MEDS ORDERED: LIDOCAINE 2% INJ 100 MG/5 ML SDV (FOR ANES.) As Ordered ONE (09:29)
[2019-08-29] MEDS ORDERED: propofoL 200 MG/20 ML VIAL As Ordered ONE (09:29)
--- NOTE | 2019-08-29 10:07 | ROOR ---
Patient Name: Foster Mishra Procedure Date: 08/29/2019 9:36 AM Date of : 1955 Age: 63 Room: [facility] Gender: Male Note Status: Finalized Procedure: Upper GI endoscopy Indications: Tumor of the GI tract Providers: DO Roberta Holloway MD: Nazia FRANKLIN NP Requesting Provider: Medicines: Propofol per Anesthesia Complications: No immediate complications. Procedure: Pre-Anesthesia Assessment: - Prior to the procedure, a History and Physical was performed, and patient medications and allergies were reviewed. The patient is competent. The risks and benefits of the procedure and the sedation options and risks were discussed with the patient. All questions were answered and informed consent was obtained. Patient identification and proposed procedure were verified by the physician, the nurse, the anesthesiologist and the supply technician in the endoscopy suite. Mental Status Examination: alert and oriented. Airway Examination: normal oropharyngeal airway and neck mobility. Respiratory Examination: clear to auscultation. CV Examination: normal. Prophylactic Antibiotics: The patient does not require prophylactic antibiotics. Prior Anticoagulants: The patient has taken no previous anticoagulant or antiplatelet agents. ASA Grade Assessment: IV - A patient with severe systemic disease that is a constant threat to life. After reviewing the risks and benefits, the patient was deemed in satisfactory condition to undergo the procedure. The anesthesia plan was to use monitored anesthesia care (MAC). Immediately prior to administration of medications, the patient was re-assessed for adequacy to receive sedatives. The heart rate, respiratory rate, oxygen saturations, blood pressure, adequacy of pulmonary ventilation, and response to care were monitored throughout the procedure. The physical status of the patient was re-assessed after the procedure. The Endoscope was introduced through the mouth, and advanced to the body of the stomach. The upper GI endoscopy was accomplished without difficulty. The patient tolerated the procedure well. Findings: Placement of an externally removable PEG with no T-fasteners was successfully completed. The external bumper was at the 2.0 cm marking on the tube. Estimated blood loss was minimal. The cardia and gastric fundus were normal on retroflexion. Impression: - An externally removable PEG placement was successfully completed. - No specimens collected. Recommendation: - Patient has a contact number available for emergencies. The signs and symptoms of potential delayed complications were discussed with the patient. Return to normal activities tomorrow. Written discharge instructions were provided to the patient. - Return to my office PRN. Lupillo Baltazar DO 08/29/2019 10:06:43 AM Electronically signed by Lupillo Baltazar DO Number of Addenda: 0 Note Initiated On: 08/29/2019 9:36 AM Estimated Blood Loss: Estimated blood loss was minimal.
[2019-08-29 10:42] VITALS: BP 115/78
[2019-09-02] MEDS ORDERED: BACT800T5 PO (18:50)
[2019-09-02] MEDS ORDERED: PRED20TA PO (18:50)
== END 2019-08-29 10:43 | disposition home or self-care (01) ==
LOC: M OPP 08:21
PROVIDERS: ATTEND Surgery
DX: C32.1 Malignant neoplasm of supraglottis (principal); Z79.899 Other long term (current) drug therapy; Z88.5 Allergy status to narcotic agent; Z88.8 Allergy status to other drugs, medicaments and biological substances; Z87.891 Personal history of nicotine dependence

== ENCOUNTER 2019-08-31 10:17 | Emergency (ER) | payer OTHER ==
[~2019-08-31] VITALS: Ht 182.9 cm; Wt 138.0 kg
[2019-08-31] MEDS ORDERED: IPRATROPIUM 0.5MG/ALBUTEROL 2.5MG INH SOL UD 3ML (DUONEB)(J7620) NEB ONE (10:45)
[2019-08-31] MEDS ORDERED: ALBUTEROL SULFATE 2.5 MG/0.5 ML INH NEB SOLN INH ONE (10:45)
[2019-08-31 11:05] LABS: BASO % 0.3 % (0.0-1.0); EOS # 0.1 10^3/uL (0.0-0.5); EOS % 0.5 % (0.0-3.0); HEMOGLOBIN 12.2 g/dl (13.5-17.5); LYMPH # 1.8 10^3/uL (1.5-5.0); LYMPH % 15.6 % (24.0-44.0); MEAN CORPUSCULAR HEMOGLOBIN 31.9 pg (27.0-33.0); MEAN CORPUSCULAR HGB CONC 33.9 g/dl (32.0-36.5); MONO # 1.5 10^3/uL (0.0-0.8); MONO % 12.7 % (0.0-5.0); NEUTROPHILS # 8.1 10^3/uL (1.5-8.5); NEUTROPHILS % 70.4 % (36.0-66.0); PLATELET COUNT, AUTOMATED 272 10^3/uL (150-450); RED BLOOD COUNT 3.83 10^6/uL (4.30-6.10); WHITE BLOOD COUNT 11.6 10^3/uL (4.0-10.0)
[2019-08-31 11:15] LABS: INR 1.24; PROTHROMBIN TIME 15.4 SECONDS (11.8-14.0)
[2019-08-31 11:16] LABS: PARTIAL THROMBOPLASTIN TIME 45.2 SECONDS (25.0-38.4)
[2019-08-31] MEDS ORDERED: ISOVUE-370 76% 100ML VIAL (Q9967) As Ordered ONE (11:31)
[2019-08-31 11:36] LABS: ALBUMIN 3.7 GM/DL (3.2-5.2); ALT/SGPT 31 U/L (12-78); BILIRUBIN,DIRECT 0.5 MG/DL (0.0-0.2); BILIRUBIN,TOTAL 1.4 MG/DL (0.2-1.0); CK-MB VALUE MASS < 1.0 NG/ML (<3.6); CPK CREATINE PHOSPHOKINASE 41 U/L (39-308); FREE T4 1.48 NG/DL (0.76-1.46); LIPASE 64 U/L (73-393); MB/CK RELATIVE INDEX 2.44 (< OR =4); NT-PRO BNP 460 PG/ML (<125); TOTAL PROTEIN 7.1 GM/DL (6.4-8.2); TROPONIN I < 0.02 NG/ML (< 0.10)
--- NOTE | 2019-08-31 11:58 | REP ---
PORTABLE CHEST X-RAY: Single view. HISTORY: Chest pain. COMPARISON STUDY: May 14, 2019. FINDINGS: Monitoring electrodes overlie the chest. The lungs are well inflated and free of infiltrate. Pleural angles are sharp. There is minimal bibasilar fibrosis. Heart is mildly enlarged unchanged. Pulmonary vasculature is not increased. IMPRESSION: Cardiomegaly. Mild bibasilar fibrosis. Otherwise no acute disease. Electronically Signed by Francisco Ludwig MD 09/01/2019 05:13 A
--- NOTE | 2019-08-31 12:30 | REP ---
CT PULMONARY ANGIOGRAM: With IV contrast. HISTORY: Abdomen pain. Recent G tube. Shortness of breath. COMPARISON STUDIES: Comparison CT study May 14, 2019. Contrast dose: 100 mL of Isovue [address] TECHNIQUE: Helical scanning is acquired and overlapping 1.5 mm and contiguous 3 mm axial images are reformatted. In addition, maximum intensity projection and multiplanar re-formation images are generated in sagittal and coronal imaging projections. CT PULMONARY ANGIOGRAPHIC FINDINGS: Preliminary digital mri assistant radiograph is unremarkable. There is good opacification in the pulmonary arterial tree. Axial as well as multiplanar and maximum intensity projection reformatted scans show no evidence of vessel cutoff or filling defect to suggest pulmonary embolus. There is no evidence of aortic aneurysm or dissection. Vascular calcification is noted. This includes the coronary artery distribution. No adrenal lesion is observed. Visualized upper abdominal structures are remarkable for a gastrostomy tube and mild diffuse fatty infiltration of the liver. There are scattered normal-sized mediastinal nodes. A tiny sliver of pericardial fluid is present. There is no visible pleural effusion. No infiltrate is seen in the lung baez. There is discoid atelectasis in the bases bilaterally mild in degree. No pulmonary mass or significant pulmonary nodule is appreciated. IMPRESSION: No CT evidence of pulmonary embolus. Minimal bibasilar plate-like atelectasis. Tiny sliver of pericardial fluid. Unchanged from comparison study May 14, 2019. Electronically Signed by Francisco Ludwig MD 09/01/2019 05:14 A
--- NOTE | 2019-08-31 12:34 | REP ---
CT ABDOMEN AND PELVIS WITH IV BUT WITHOUT ORAL CONTRAST: HISTORY: Abdomen pain. Recent G tube placement. Comparison CT study is from April 18, 2014. CT CONTRAST DOSE: 100 mL of intravenous Isovue [address] FINDINGS: There is mild to moderate diffuse fatty infiltration of the liver. No focal liver lesion is seen. Spleen is normal in size homogeneous in texture. Normal adrenal glands are seen bilaterally. A gastrostomy tube is seen in good position in the anterior wall of the stomach. There is a small quantity of adjacent edema in the subcutaneous fat and perigastric fat at the G tube insertion site. There is no filling defect in the gallbladder. No pancreatic abnormality is observed. There are multiple small cortical cysts in the kidneys which are somewhat atrophic bilaterally. There is vascular calcification bilaterally. No hydronephrosis or stone is appreciated. No retroperitoneal mass or adenopathy is seen. A normal appendix is visible in the right lower quadrant. Small and large intestinal bowel loops are unremarkable. There is left colonic diverticulosis. There are dystrophic calcifications in the prostate. There is spray artifact in the lower pelvic region due to bilateral hip arthroplasty. IMPRESSION: Status post gastrostomy tube placement. G tube is in good position. There is some edema in the region of the G tube insertion. No hematoma. Fatty infiltration of the liver. Left colonic diverticulosis without CT evidence of diverticulitis. Electronically Signed by Francisco Ludwig MD 09/01/2019 05:14 A
[2019-08-31] MEDS ORDERED: BACT800T5 PO (13:22)
[2019-08-31] MEDS ORDERED: BACTRIM 160MG/800MG DS TAB PO ONE (13:30)
[2019-08-31] MEDS ORDERED: PRED20TA PO (13:33)
[2019-08-31 13:37] VITALS: BP 133/83
[2019-08-31] MEDS: ACETAMINOPHEN TAB 650MG DOSE (2X325MG) PO ONE ×2 (13:44→13:47)
--- NOTE | 2019-09-01 22:12 | ECGEPIP ---
[facility] - ED Test Date: 2019-08-31 Pat Name: MAYCOL PA Department: Room: - Gender: Male Application Lead: : 1955 Requested By: Bhargav Jeronimo Order Number: [id number] Reading MD: Alyssa Michele Measurements Intervals [place] Rate: 114 P: [place]: 0 QRS: 50 QRSD: 101 T: 28 QT: 324 QTc: 448 Interpretive Statements SINUS TACHYCARDIA LOW QRS VOLTAGE IN PRECORDIAL LEADS INCOMPLETE RIGHT BUNDLE BRANCH BLOCK INFERIOR MYOCARDIAL INFARCTION, OF INDETERMINATE AGE Electronically Signed on 09-01-2019 22:11:59 EST by Alyssa Michele
[2019-09-02] MEDS ORDERED: BACT800T5 PO (18:50)
[2019-09-02] MEDS ORDERED: PRED20TA PO (18:50)
--- NOTE | 2019-09-03 19:13 | CR ---
DATE OF CONSULTATION: 08/31/2019 CONSULTATION REPORT FOR: Emergency department. REASON FOR CONSULTATION: Possible gastrostomy tube site infection. HISTORY: The patient is a 63-year-old man who was apparently recently diagnosed with a throat cancer. He is going to be undergoing radiation therapy, and in anticipation of this, a percutaneous endoscopic gastrostomy was performed by Dr. Baltazar on 08/29/2019. He was discharged home, apparently doing well, but has noticed some pain around the tube site high in the epigastrium. He also felt somewhat short of breath. He therefore presented to the emergency department at about 10:15 in the morning on 08/31/2019. He had a CT scan of the abdomen to evaluate the feeding tube and also had some laboratory studies obtained. I was asked to come and evaluate the gastrostomy (G) tube site regarding the possibility of infection. His usual medications include low-dose aspirin, atenolol, amlodipine, Plavix, Lipitor, aspirin, Zosyn, and Percocet as needed. He reports allergies to ADENOSINE, MORPHINE, and ANGIOTENSIN CONVERTING ENZYME (MARIA DE JESUS) INHIBITORS. His medical problems include hypertension, high cholesterol, coronary disease, chronic obstructive pulmonary disease (COPD), gastroesophageal reflux, arthritis, a history of methicillin-resistant Staphylococcus aureus (MRSA), and his current throat cancer. His surgical history is significant for bilateral hip procedures. He had a laminectomy on his back in 1999. He has had coronary stents at [facility] in 2016 and 2017. He had a colonoscopy 12 years ago. He has had a knee scope as well as prostate surgery. REVIEW OF SYSTEMS: Reveals no chest pain or palpitations. He has had no cough, wheezing or sputum production. He denies any rectal bleeding or melena. He has been able to eat. He does have pain around the tube site. He denies any history of deep vein thrombosis (DVT) or pulmonary embolism. FAMILY HISTORY AND SOCIAL HISTORY: Not pertinent. PHYSICAL EXAMINATION: Reveals a quite obese man lying quietly on the hospital stretcher. He is alert and oriented. Skin is warm and dry. Sclerae are anicteric. Neck is without evident mass. Heart examination shows a regular rhythm. Lungs are clear though the breath sounds are somewhat distant bilaterally. The abdomen is obese. He has a gastrostomy tube in the high epigastrium, perhaps slightly to the left of the midline. There is a small area of very faint patchy redness, no more than 6 cm in diameter, sort of eccentrically located around the entry site. The tube does appear to be slightly snug against the skin, so I undid the two clips holding the retention disk to the catheter and advanced the catheter slightly through the retention disk. There was no release of fluid from around the catheter when this was done. The abdomen is otherwise soft with positive bowel sounds and without any undue tenderness. LABORATORY STUDIES: Obtained and these showed a white count of 12, hemoglobin 12, hematocrit 36 and the differential count showed 70% neutrophils, 16% lymphocytes and 13% monocytes. His chemistry profile showed normal electrolytes with a creatinine of 1.6, BUN of 13, and his glucose was slightly elevated at 133. Liver function tests showed very slight elevation of the total bilirubin to 1.4. He had a troponin less than 0.02 and a BNP of 460. Lipase is normal. CT scan was done which showed the G-tube entering the anterior wall of the stomach. There was a small area of edema in the subcutaneous and perigastric fat at the G-tube site. There was no evidence of abscess or hematoma. There was no evidence of any free air or free intra-abdominal fluid. IMPRESSION: 1. A two-day-old gastrostomy (G) tube with possible mild focal cellulitis at the insertion site. 2. Throat cancer. 3. Coronary artery disease. 4. Hypertension. 5. Hypercholesterolemia. 6. Chronic obstructive pulmonary disease. 7. Past history of methicillin-resistant Staphylococcus aureus (MRSA) infection. RECOMMENDATIONS: At this point, I do not believe the patient requires admission to the hospital for management of this gastrostomy (G) tube site. There is some very faint patchy pink discoloration in a small area surrounding the tube site. This could represent a very small area of mild cellulitis. I believe it would be reasonable to provide him with some antibiotics that would include coverage for possible methicillin-resistant Staphylococcus aureus (MRSA) infection given his past history and discharge him home to followup on an outpatient basis. If his wound redness worsens or he develops other symptoms then he could return as needed for consideration of inpatient treatment.
[2019-09-06] MEDS ORDERED: LEVA750T7 PO (12:13)
== END 2019-08-31 13:52 | disposition home or self-care (01) ==
LOC: M ED 10:17
DX: J44.1 Chronic obstructive pulmonary disease with (acute) exacerbation (principal); L03.311 Cellulitis of abdominal wall; I51.7 Cardiomegaly; J84.10 Pulmonary fibrosis, unspecified; K57.30 Diverticulosis of large intestine without perforation or abscess without bleeding; K76.0 Fatty (change of) liver, not elsewhere classified; R00.0 Tachycardia, unspecified; I45.19 Other right bundle-branch block; N18.9 Chronic kidney disease, unspecified; Z85.21 Personal history of malignant neoplasm of larynx; Z86.14 Personal history of Methicillin resistant Staphylococcus aureus infection; Z93.1 Gastrostomy status; Z95.5 Presence of coronary angioplasty implant and graft; F17.210 Nicotine dependence, cigarettes, uncomplicated; Z88.8 Allergy status to other drugs, medicaments and biological substances; Z88.5 Allergy status to narcotic agent; Z79.51 Long term (current) use of inhaled steroids; Z79.899 Other long term (current) drug therapy; Z79.891 Long term (current) use of opiate analgesic
CPT/HCPCS: 36415; 71045; 71275; 74177; 80047; 80076; 82550; 82553; 83605; 83690; 83880; 84439; 84443; 85025; 85610; 85730; 86850; 86900; 86901; 87040; 93005; 93041; 94640; 99285; Q9967

== ENCOUNTER 2019-09-18 13:46 | Outpatient (RCR) | payer OTHER ==
[~2019-09-18 13:46] MED LIST changes: +LEVA750T7 PO
--- NOTE | 2019-09-19 12:50 | RADONC ---
RADIATION ONCOLOGY SIMULATION NOTE DATE: 09/18/2019 CHART NUMBER: [id number] SIMULATION NOTE: Mr. Mishra was taken to the CT scan for CT simulation of his head and neck region. CT was accomplished without difficulty or discomfort. Radiation treatment planning is underway and radiation treatments will begin subsequently. An immobilization device was made including a mask today. It was made without difficulty or discomfort and will be used throughout the course of treatment. I was physically present throughout the course of CT simulation.
--- NOTE | 2019-09-20 10:12 | RADONC ---
RADIATION ONCOLOGY SIMULATION NOTE DATE: 09/18/2019 CHART #: [id number] Mr. Mishra was taken to the CT scan for CT simulation of his head and neck field. CT was accomplished without difficulty or discomfort. Radiation treatment planning is underway and radiation treatments will begin subsequently. An immobilization device was created including a mask. It was created without difficulty or discomfort and will be used throughout the course of treatment. I was physically present throughout the course of CT simulation.
== END 2019-09-21 ==
LOC: M ONCR 13:46
PROVIDERS: ATTEND Radiology Radiation Oncology
DX: C32.1 Malignant neoplasm of supraglottis (principal)

== ENCOUNTER 2019-10-19 10:43 | Outpatient (RCR) | payer OTHER ==
--- NOTE | 2019-10-01 12:30 | RADONC ---
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 So far he has received a dose of 1000 cGy. He has no new complaints. He has a PEG tube in place. He denies any dysphagia. He says his voice is somewhat hoarse. REVIEW OF SYSTEMS: Denies nausea, vomiting, fever, chills, night sweats. There is no anorexia, weight loss. He denies chest pain, urinary or bowel problems. PHYSICAL EXAMINATION: The patient appears to be somewhat obese. There are no noticeable skin changes. The remainder of his physical examination is within normal limits. Mr. Mihsra is tolerating treatment well and treatment will continue as planned. MTDD
--- NOTE | 2019-10-09 10:07 | RADONC ---
RADIATION ONCOLOGY DATE: 10/08/2019 CHART NUMBER: [id number] Mr. Mishra is carries the diagnosis of squamous cell carcinoma of the supraglottic larynx. He is on simultaneous chemo RT. So far he has received a dose of 1800 cGy. He has no new complaints. However, he has lost significant weight. He denies dysphagia. His saliva is very thick. REVIEW OF SYSTEMS: Denies nausea, vomiting, fever, chills, night sweats. He has lost some weight during the last week. He denies chest pain, respiratory, or GI symptoms. PHYSICAL EXAMINATION: He weighs 295.4 pounds, blood pressure 102/66, pulse 74, respiration 16, temperature 97.7, oxygen saturation is 95% in room air. Oral mucosal is moist. There is no mucositis. There is no palpable lymphadenopathy in the neck or axilla bilaterally. ASSESSMENT/PLAN: Mr. Mishra is tolerating treatment well. However, he has lost significant weight. He is not using his PEG. I advised to use the PEG and also drink liquid for dryness of mouth. He will continue treatment as planned. MTDD
--- NOTE | 2019-10-16 10:43 | RADONC ---
RADIATION ONCOLOGY PROGRESS NOTE DATE OF SERVICE: 10/15/2019 CHART NUMBER: [id number] Mr. Mishra is presently a dose of 2800 cGy to his epiglottis and is tolerating treatments fairly well although he is having a sore throat and difficulty swallowing. He is presently taking all of his intake orally and not using his feeding tube. The patient's review of systems is positive for xerostomia and discomfort upon swallowing but is otherwise noncontributory. Denies nausea, vomiting, fevers, chills, night sweats, diplopia, headaches, anxiety or depression, anorexia, weight loss, visual disturbances, chest pain, urinary or bowel difficulties, bone pain, or neurological problems. PHYSICAL EXAMINATION The patient's weight today is 294.8 pounds, down 1/2 pound since last week. His oral cavity shows xerostomia present with just some mild mucositis. The remainder of his physical exam remains otherwise unchanged. Mr. Mishra is tolerating treatments quite well and radiation will continue as scheduled.
== END 2019-10-20 ==
LOC: M ONCR 10:43
PROVIDERS: ATTEND Radiology Radiation Oncology
DX: C32.1 Malignant neoplasm of supraglottis (principal)

== ENCOUNTER → 2019-11-20 | Outpatient (RCR) | payer OTHER ==
--- NOTE | 2019-10-23 13:14 | RADONC ---
RADIATION ONCOLOGY PROGRESS NOTE DATE: 10/22/2019 CHART #: [id number] Mr. Sheppard is presently at a dose of 3800 cGy to his epiglottic region and is tolerating treatments with some difficulty. He has a sore throat. He feels weak as well. REVIEW OF SYSTEMS: The patient's review of systems is positive for some dizziness and weakness but is otherwise noncontributory. Denies nausea, vomiting, fevers, chills, night sweats, diplopia, headaches, anxiety or depression, anorexia, weight loss, visual disturbances, chest pain, urinary or bowel difficulties, bone pain, or neurological problems. PHYSICAL EXAMINATION: The patient has lost 4 pounds over the past week and now is 290.8 pounds. His blood pressure however was 75/53. The patient's skin is in good condition with no evidence of radiation desquamation. His oral cavity shows some mild mucositis. The remainder of his physical exam remains unchanged. The patient is presently taking two different blood pressure medications. In light of his weight loss of approximately 22 pounds since consultation, I have instructed him to stop taking the most recent medication which was added not long ago. Before the change, however, I asked him to contact his primary care doctor and let him know to see if this is okay with him. I had offered him IV fluids, but he has a feeding tube. I have asked him to increase his fluid intake beginning immediately. We have instructed him to be quite careful with such a low blood pressure. We would not want him to fall. Once again, radiation is being tolerated, however, the patient is presenting with some low blood pressure. I have asked him to contact his primary care doctor immediately and discontinue one of the blood pressure medications as well as increase some oral fluids. We will continue to follow him and we will check his blood pressure again tomorrow.
--- NOTE | 2019-10-30 15:36 | RADONC ---
RADIATION ONCOLOGY PROGRESS NOTE DATE: 10/29/2019 CHART NUMBER: [id number] PROGRESS NOTE: Mr. Mishra is thus far at a dose of 4600 cGy to his head and neck region and had been tolerating his treatments fairly well. REVIEW OF SYSTEMS: The patient came in today reporting pain on the skin of his neck. He also has difficulty swallowing. The patient's review of systems is positive for skin pain and discomfort upon swallowing. It Is otherwise noncontributory. Denies nausea, vomiting, fevers, chills, night sweats, diplopia, headaches, anxiety or depression, anorexia, weight loss, visual disturbances, chest pain, urinary or bowel difficulties, bone pain, or neurological problems. PHYSICAL EXAMINATION: The patient's skin now shows some moist desquamation on the left. There is also tanning and erythema present bilaterally. His weight today is down 7 pounds, down to 282 pounds. His oral cavity shows mucositis. In light of this, I am giving him a break today, tomorrow and Tuesday. We will reevaluate on . I have also sent in a prescription for Silvadene cream to be applied topically t.i.d. We will continue to follow him. He has been given dietary instructions and does have a feeding tube.
--- NOTE | 2019-11-06 08:57 | RADONC ---
RADIATION ONCOLOGY PROGRESS NOTE: DATE: 11/05/2019 CHART NUMBER: [id number] Mr. Mishra with the diagnosis of supraglottic larynx cancer is currently receiving local regional radiotherapy. He had been on a break for approximately 1 week because of severe skin reaction as well as odynophagia and dysphagia. He returns today and wishes to be seen. The presumption was that he was going to start day. He has had some improvement of his swallowing with regards to his odynophagia and dysphagia. The skin reaction has also improved. He had significant moist desquamation. His energy level is such that he is able to maintain many day-to-day activities and there has definitely been an improvement. EXAMINATION FINDINGS: The skin within the irradiated volume shows focal desquamation but significant re-epithelialization and skin healing. There is no palpable peripheral lymphadenopathy. The remainder of the physical examination is unchanged. IMPRESSION: The patient has had significant improvement of his odynophagia and dysphagia and will be ready to resume therapy in approximately 2 days. I have asked him to return on TuesdayNovember 06 to resume his regularly scheduled treatments.
--- NOTE | 2019-11-12 14:38 | RADONC ---
RADIATION ONCOLOGY PROGRESS NOTE: DATE: 11/12/2019 CHART NUMBER: [id number] Mr. Mishra is presently at a dose of 4800 cGy to his epiglottis and neck. He had been on break and is now feeling much better. His skin is healed nicely and is resuming radiation. REVIEW OF SYSTEMS: The patient's review of systems basically noncontributory except for some minimal skin pain and throat pain at this time. He denies nausea, vomiting, fevers, chills, night sweats, diplopia, headaches, anxiety or depression, anorexia, weight loss, visual disturbances, chest pain, urinary or bowel difficulties, bone pain, or neurological problems. PHYSICAL EXAMINATION: The patient's skin has improved and there is no longer any evidence of moist or dry desquamation. The remainder of his physical exam remains unchanged. Mr. Mishra is resuming radiation and treatments will continue. MTDD
--- NOTE | 2019-11-19 13:06 | RADONC ---
RADIATION ONCOLOGY PROGRESS NOTE DATE: 11/19/2019 CHART NUMBER: [id number] Mr. Mishra is presently at a dose of 5600 cGy to his epiglottis and is tolerating treatments quite well at this point with no significant difficulties related to his radiation therapy other than a sore throat and discomfort upon swallowing. REVIEW OF SYSTEMS: The patient's review of systems is positive for his sore throat, but is otherwise noncontributory. He denies nausea, vomiting, fevers, chills, night sweats, diplopia, headaches, anxiety or depression, anorexia, weight loss, visual disturbances, chest pain, urinary or bowel difficulties, bone pain or neurological problems. PHYSICAL EXAMINATION: Physical examination was deferred secondary to COVID-19. ASSESSMENT: The patient is tolerating treatments quite well and radiation will continue as scheduled.
[~2019-11-20] MED LIST changes: +SILV40CR EXT
== END ==
LOC: M ONCR 10-22 10:58
PROVIDERS: ATTEND Radiology Radiation Oncology
DX: C32.1 Malignant neoplasm of supraglottis (principal)

== ENCOUNTER 2019-11-27 10:56 | Outpatient (RCR) | payer OTHER ==
--- NOTE | 2019-11-27 08:13 | RADONC ---
RADIATION ONCOLOGY PROGRESS NOTE DATE: 11/26/2019 CHART NUMBER: [id number] Mr. Mishra is presently a dose of 6800 cGy to his epiglottis and is scheduled for completion of treatment tomorrow. He continues to have a sore throat, but he is drinking clear liquids. He is also using his feeding tube. His weight today is down only 2 pounds over the past 3 weeks. The remainder of his physical was deferred as per COVID-19 precautions. Mr. Mishra is scheduled for completion tomorrow and should complete treatment. He has been given nutritional instructions and we will be seeing him again in followup in four weeks' time. In addition, he has been told to contact his ENT people for routine evaluation post-treatment as well.
--- NOTE | 2019-11-27 11:51 | RADONC ---
RADIATION ONCOLOGY TREATMENT SUMMARY: DATE: 11/27/2019 CHART NUMBER: [id number] DIAGNOSIS: Supraglottic larynx cancer. Stage: II, T2 N0 M0 ECOG PERFORMANCE STATUS: 0 Mr. Mishra is a very pleasant 64-year-old white male with the diagnosis of what appears to be a stage II, T2 N0 M0, supraglottic larynx cancer who presented to us for consideration of definitive external beam radiation therapy with IMRT/IGRT. We treated the patient to the primary site for a total dose of 7000 cGy delivered in 35 fractions of 200 cGy each over 62 elapsed days from 09/25/2019 through 11/27/2019. The patient's supraglottic larynx was treated on a linear accelerator utilizing A 6MV photon beam via IMRT/IGRT. We treated the patient's noninvolved lymph nodes to a dose of 5000 cGy delivered in 25 fractions of 200 cGy each over 49 elapsed days from 09/25/2019 through 11/13/2019. This was also treated utilizing IMRT and IGRT with a 6 MV photon beam. Mr. Mishra tolerated his treatments quite well and was able to complete therapy as prescribed. I have scheduled the patient to see me again in 1 month for further followup. He will also continue to be followed by his other physicians as well. cc: MD Nazia Houser RN
== END 2019-12-20 ==
LOC: M ONCR 10:56
PROVIDERS: ATTEND Radiology Radiation Oncology
DX: C32.1 Malignant neoplasm of supraglottis (principal)

== ENCOUNTER → 2019-12-26 | Outpatient (CLI) | payer OTHER ==
--- NOTE | 2019-12-29 14:44 | RADONC ---
RADIATION ONCOLOGY FOLLOWUP NOTE DATE: 12/26/2019 This is a telemedicine visit. The patient was informed of the risks including security breech, technological failure, inability to perform a comprehensive physical exam which could delay or prevent an accurate diagnosis, and potential complications from treatment decisions rendered over a telemedicine platform. The patient understands and consented to the use of telehealth services phone only. CHART NUMBER: [id number] DIAGNOSIS: Supraglottic larynx cancer. STAGE: T2, N0, M0 ECOG PERFORMANCE STATUS: 1 FOLLOWUP NOTE: Mr. 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 The patient presents today reporting that generally he is doing quite well. He continues to have pain upon swallowing, but he is eating foods and has been eating without the use of his feeding tube now for several weeks. In addition, the patient reports that he was seen by Dr. Modi and was evaluated 2 weeks ago and is scheduled to see him again in 4 weeks for fiberoptic laryngoscopic evaluation as well. He will be seeing Dr. Modi every 6 weeks. REVIEW OF SYSTEMS: The patient's review of systems is positive for some continued pain upon swallowing but is otherwise noncontributory. Denies nausea, vomiting, fevers, chills, night sweats, diplopia, headaches, anxiety or depression, anorexia, weight loss, visual disturbances, chest pain, urinary or bowel difficulties, bone pain, or neurological problems. PHYSICAL EXAMINATION: Physical exam was deferred at this time as per COVID-19 precautions. This was a telephone consultation. ASSESSMENT: The patient is being followed and managed closely by his head and neck physician, Dr. Modi. In light of this, I am scheduling him for a followup visit in our office in April. He will be leaving the following month for [place]. I explained to the patient that I will be retiring prior to that and he will be seen by Dr. Burns in routine followup here as well. The patient has asked that his feeding to be removed and states that he has not been using it and he is able to swallow solid and liquid foods. In light of this, I have sent an order to his surgeon, Dr. Baltazar, to ask for reevaluation and removal of the feeding tube as indicated. cc: MD Lupillo Houser DO Bonnie Servage, RN
== END ==
LOC: M ONCR 10:48
PROVIDERS: ATTEND Radiology Radiation Oncology
DX: C32.1 Malignant neoplasm of supraglottis (principal)

== ENCOUNTER 2020-02-18 12:38 | Outpatient (RCR) | payer OTHER | END 2020-02-19 | LOC: M PT 12:38 | PROVIDERS: ATTEND Specialist | DX: Z51.89 Encounter for other specified aftercare (principal); I89.0 Lymphedema, not elsewhere classified; R22.1 Localized swelling, mass and lump, neck ==

== ENCOUNTER 2020-03-20 09:15 | Outpatient (RCR) | payer OTHER ==
[~2020-03-20 09:15] MED LIST changes: -AMLO10TA5 PO; +AMLO1TAB25 PO; -ASPI81TA85 PO; +ASPI81TA86 PO
== END 2020-03-21 ==
LOC: M PT 09:15
PROVIDERS: ATTEND Specialist
DX: I89.0 Lymphedema, not elsewhere classified (principal); R22.1 Localized swelling, mass and lump, neck

== ENCOUNTER 2020-04-08 17:33 | Inpatient (IN) | payer OTHER ==
[~2020-04-08] VITALS: Ht 182.9 cm; Wt 123.2 kg
[~2020-04-08 17:33] MED LIST changes: +**UNRESOLVED NON-FORMULARY MED ORDER XX SCH; +ISOVUE-370 76% 100ML VIAL As Ordered ONE; +VANCOMYCIN 1000MG/20ML VIAL As Ordered ONE; +ZOSYN 3.375GM VIAL (J2543) As Ordered ONE
[2020-04-08] MEDS ORDERED: ALBUTEROL 90 MCG/ACT 8GM HFA INHALER INH PRN (20:15)
[2020-04-08] MEDS ORDERED: PERCOCET 5MG/325MG TAB As Ordered ONE (20:20)
[2020-04-08] MEDS ORDERED: BETAMETHASONE DIP 0.05% OINT 15 GM TOP PRN (21:45)
[2020-04-08 22:00] VITALS: BP 149/71
[2020-04-08] MEDS ORDERED: TEMO0.0517 TOP (22:54)
[2020-04-08] MEDS ORDERED: ASPI-161 PO (22:54)
[2020-04-08] MEDS ORDERED: UREA20CR4 EXT (22:54)
[2020-04-08] MEDS: ATORVASTATIN 20 MG TAB PO SCH (22:55)
[2020-04-08] MEDS ORDERED: ZOSYN 4.5GM VIAL (J2543) ONE (23:52)
[2020-04-09] MEDS: PIPERACILLIN/TAZOBACTAM SOD 4.5 GM in D5W MINI-BAG PLUS 50 ML IV SCH ×4 (00:01→21:16)
[2020-04-09] MEDS: VANCOMYCIN HCL 750 MG, VIAL MATE ADAPTER 1 EACH in D5W 250 ML IV SCH ×4 (00:51→14:03)
[2020-04-09] MEDS: PERCOCET 5MG/325MG TAB PO PRN ×3 (05:25→21:17)
[2020-04-09 05:54] LABS: APPEARANCE, URINE CLEAR (CLEAR); BACTERIA, URINE AUTO NEGATIVE (NEGATIVE); BILIRUBIN, URINE AUTO NEGATIVE (NEGATIVE); BLOOD, URINE BLOOD NEGATIVE (NEGATIVE); COLOR, URINE YELLOW (YELLOW); GLUCOSE, URINE (UA) AUTO NEGATIVE (NEGATIVE); KETONE, URINE AUTO NEGATIVE (NEGATIVE); LEUKOCYTE ESTERASE, URINE AUTO NEGATIVE (NEGATIVE); NITRITE, URINE AUTO NEGATIVE (NEGATIVE); PROTEIN, URINE AUTO NEGATIVE (NEGATIVE); RBC, URINE AUTO 0 /HPF (0-3); SPECIFIC GRAVITY URINE AUTO 1.024 (1.002-1.035); SQUAMOUS EPITHELIAL CELL UR AU 1 /HPF (0-6); UROBILINOGEN, URINE AUTO 0.2 mg/dL (0.0-2.0); WBC, URINE AUTO 1 /HPF (0-3)
[2020-04-09 06:00] VITALS: BP 169/94
[2020-04-09 07:38] LABS: ALBUMIN 3.1 GM/DL (3.2-5.2); ALT/SGPT 16 U/L (12-78); BILIRUBIN,TOTAL 1.1 MG/DL (0.2-1.0); BLOOD UREA NITROGEN 18 MG/DL (7-18); CALCIUM LEVEL 8.6 MG/DL (8.8-10.2); CARBON DIOXIDE LEVEL 30 MEQ/L (21-32); CHLORIDE LEVEL 106 MEQ/L (98-107); CREATININE FOR GFR 1.23 MG/DL (0.70-1.30); GLOMERULAR FILTRATION RATE > 60.0 (>49); GLUCOSE, FASTING 106 MG/DL (70-100); POTASSIUM SERUM 3.8 MEQ/L (3.5-5.1); SODIUM LEVEL 141 MEQ/L (136-145); TOTAL PROTEIN 6.5 GM/DL (6.4-8.2)
[2020-04-09] MEDS: ASPIRIN 81 MG CHEW TABLET PO SCH (08:57)
[2020-04-09] MEDS: atenoloL 25 MG TAB PO SCH (09:04)
[2020-04-09 14:00] VITALS: BP 168/81
[2020-04-09] MEDS: GASTROGRAFIN SOLUTION 30ML PO SCH ×2 (14:47→15:05)
[2020-04-09] MEDS ORDERED: ISOVUE-370 76% 100ML VIAL As Ordered ONE (15:49)
--- NOTE | 2020-04-09 17:13 | REPVR ---
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 TECHNIQUE: Imaging protocol: Computed tomography of the abdomen and pelvis with intravenous contrast. Radiation optimization: All CT scans at this facility use at least one of these dose optimization techniques: automated exposure control; mA and/or kV adjustment per patient size (includes targeted exams where dose is matched to clinical indication); or iterative reconstruction. Contrast material: ISOVUE 370; Contrast volume: 100 ml; Contrast route: INTRAVENOUS (IV); COMPARISON: CT ABD/PEL W/IV CONTRAST ONLY 08/31/2019 11:31 AM FINDINGS: Lungs: Bibasilar atelectasis. Heart: Small pericardial effusion. Liver: There is a diffuse decrease in hepatic parenchymal density, consistent with steatosis. Gallbladder and bile ducts: The gallbladder is incompletely distended. This is most likely related to incomplete fasting. Clinical correlation to exclude gallbladder pathology suggested. Pancreas: Normal. No ductal dilation. Spleen: Normal. No splenomegaly. Adrenals: Normal. No mass. Kidneys and ureters: Multiple bilateral simple appearing renal cysts measure up to 1.8 cm in the right kidney unchanged in comparison to the prior study. No follow-up required. Punctate nonobstructive calculus lower pole of the left kidney. Bilateral renal vascular calcifications. Stomach and bowel: Moderate diverticulosis is present in the distal colon. No diverticulitis. Appendix: No evidence of appendicitis. Intraperitoneal space: Unremarkable. No free air. No significant fluid collection. Vasculature: The aortoiliac vessels demonstrate mild atherosclerotic calcification. Lymph nodes: Unremarkable. No enlarged lymph nodes. Bladder: Unremarkable as visualized. Reproductive: Inflammatory thickening of the scrotal lozano consistent with reported history of scrotal cellulitis. Inflammatory changes also demonstrated at the base of the penis and extend posteriorly in the perineum to the anterior margin of the anus. There is a thin hypoattenuating linear focus (? Fistulous tract) demonstrated along the right margin of the inflammatory changes in the perineum. No definitive communication with the low rectum or anterior margin of the anus is established although not excluded. Bones/joints: Mild central spinal stenosis L2-L3, moderate to severe central spinal stenosis L3-L4 and severe central spinal stenosis L4-L5.The spine demonstrates mild degenerative changes. Status post bilateral total hip replacements. Soft tissues: There is a small left inguinal hernia. There is no bowel within the hernia. There is no evidence of incarceration. IMPRESSION: 1. There is a diffuse decrease in hepatic parenchymal density, consistent with steatosis. 2. The gallbladder is incompletely distended. This is most likely related to incomplete fasting. Clinical correlation to exclude gallbladder pathology suggested. 3. Multiple bilateral simple appearing renal cysts measure up to 1.8 cm in the right kidney unchanged in comparison to the prior study. No follow-up required. 4. Punctate nonobstructive calculus lower pole of the left kidney. Bilateral renal vascular calcifications. 5. Moderate diverticulosis is present in the distal colon. No diverticulitis. 6. Inflammatory thickening of the scrotal lozano consistent with reported history of scrotal cellulitis. Inflammatory changes also demonstrated at the base of the penis and extend posteriorly in the perineum to the anterior margin of the anus. There is a thin hypoattenuating linear focus (? Fistulous tract) demonstrated along the right margin of the inflammatory changes in the perineum. No definitive communication with the low rectum or anterior margin of the anus is established although not excluded. Electronically signed by: Tony Toribio On 04/09/2020 17:13:27 PM
[2020-04-09] MEDS ORDERED: ONDANSETRON 4 MG TAB PO PRN (18:15)
[2020-04-09] MEDS ORDERED: ACETAMINOPHEN TAB 650MG DOSE (2X325MG) PO PRN (18:15)
[2020-04-09] MEDS ORDERED: SENOKOT S TAB PO PRN (18:15)
[2020-04-09] MEDS: ATORVASTATIN 20 MG TAB PO SCH (21:17)
--- NOTE | 2020-04-09 21:18 | IPNPDOC ---
Date Seen The patient was seen on 04/09/20. Progress Note SUBJECTIVE: Patient is a 64 yo M with CAD, throat cancer (s/p radiation therapy), ERIBERTO, HTN, BPH (s/p TURP), and chronic scrotal cellulitis/orchitis. 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 Doing well, no acute events overnight. Denies fevers, chills, n/v/d. Scortal pain stable, worse on movement OBJECTIVE Appears well, active. Not in acute distress. PHYSICAL EXAMINATION: VITAL SIGNS: Please see below. GENERAL: NAD, comfortable, sitting upright in bed. HEENT: PERRLA, EOMI CARDIOVASCULAR: RRR, normal S1, S2, no murmurs. RESPIRATORY: Lungs CTAB. No rales, wheezes, or rhonchi. Good inspiratory effort. ABDOMINAL: soft, non tender, BS+, no guarding EXTREMITIES: no joint deformity, normal ROM NEUROLOGICAL: AAO x 3, no focal neuro deficits PSYCHOLOGICAL: wnl LABORATORY DATA, IMAGING STUDIES, MICROBIOLOGY: Please see below. Current Medications Medications (Trade) Dose Ordered Sig/Jose Route PRN Reason Start Time Stop Time Status Last Admin Dose Admin Atorvastatin Calcium (Lipitor) 20 mg QHS PO 04/08/20 21:00 04/08/20 22:55 20 MG Oxycodone/ Acetaminophen (Percocet 5mg/ 325mg Tablet) 2 tab Q6HP PRN PO PAIN 04/08/20 20:15 04/09/20 05:25 2 TAB Piperacillin Sod/ Tazobactam Sod 4.5 gm/Dextrose 50 ml @ 50 mls/hr Q8H IV 04/08/20 22:00 04/09/20 05:25 50 MLS/HR Vancomycin HCl 750 mg/IV Miscellaneous Supplies 1 each/ Dextrose 275 ml @ 275 mls/hr Q12H IV 04/09/20 01:00 04/09/20 01:00 275 MLS/HR DVT prophylaxis ordered?: [Yes, lovenox] ASSESSMENT AND PLAN: This is a 64 yo male with a pmx of CAD, throat cancer (s/p radiation therapy), ERIBERTO, HTN, BPH (s/p TURP), and chronic scrotal cellulitis/orchitis for the past 10 years. Patient presented to [facility] ED with worsening scrotal edema, pain and purulent drainage. No signs of systemic infection. 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 PROBLEMS: 1. Scrotal cellulitis/orchitis: acute on chronic. Urology (Dr. Gordillo consulted). Suspect fistulous tract from scrotum to rectum. Afebrile. WBC wnl. Obtained CT abdo pelvis w contrast. Fistilous tract noted, cannot exclude te rmination in rectum. IV zosyn, vanc. 2. Submandibular lymphedema: s/p rad therapy for throat ca. PT ordered. Outpatient ENT follow up. 3. ERIBERTO: on home CPAP. No nocturnal hypoxia on admission. Supplemental O2 prn. DISPOSITION: DC home once medically stable. VS, I&O, 24H, Fishbone Vital Signs/I&O Vital Signs Date Time Temp Pulse Resp B/P (MAP) Pulse Ox O2 Delivery O2 Flow Rate FiO2 04/09/20 06:00 97.6 76 20 169/94 (119) 95 Room Air I&O- Last 24 Hours up to 6 AM 04/09/20 06:00 Intake Total 780 ml Output Total 1050 ml Balance -270 ml Laboratory Data 24H LABS Laboratory Tests 2 04/09/20 05:00: Urine Color YELLOW, Urine Appearance CLEAR, Urine pH 5.0, Urine Specific [employer] 1.024, Urine Protein NEGATIVE, Urine Glucose (Auto)(UA) NEGATIVE, Urine Ketones (Auto) NEGATIVE, Urine Blood NEGATIVE, Urine Nitrite NEGATIVE, Urine Bilirubin NEGATIVE, Urine Urobilinogen 0.2, Urine Leukocyte Esterase (Auto) NEGATIVE, Urine WBC (Auto) 1, Urine RBC (Auto) 0, Urine Hyaline Casts (Auto) 0, Urine Bacteria (Auto) NEGATIVE, Urine Squamous Epithelial Cells 1, Urine Sperm (Auto) 04/09/20 06:33: Anion Gap 5L, Glomerular Filtration Rate > 60.0, Calcium Level 8.6L, Total Bilirubin 1.1H, Aspartate Amino Transf (AST/SGOT) 13, Alanine Aminotransferase (ALT/SGPT) 16, Alkaline Phosphatase 57, Total Protein 6.5, Albumin 3.1L, A lbumin/Globulin Ratio 0.9 CBC/BMP Laboratory Tests 04/09/20 06:33 Current Medications Current Medications Medications (Trade) Dose Ordered Sig/Jose Route PRN Reason Start Time Stop Time Status Last Admin Dose Admin Acetaminophen (Tylenol Tab) 650 mg Q4HP PRN PO MILD PAIN/FEVER 04/09/20 18:15 Albuterol Sulfate (Proventil, Ventolin Hfa) 2 puff QIDP PRN INH SHORTNESS OF BREATH 04/08/20 20:15 Aspirin (Aspirin Chewable) 81 mg DAILY PO 04/09/20 09:00 04/09/20 08:57 Atenolol (Tenormin) 25 mg DAILY PO 04/09/20 09:00 04/09/20 09:04 Atorvastatin Calcium (Lipitor) 20 mg QHS PO 04/08/20 21:00 04/08/20 22:55 Betamethasone Dipropionate (Diprosone) APPLY TO HANDS FOR PSORIA... BID PRN TOP PSORIASIS ON HANDS 04/08/20 21:45 Diatrizoate Meglum/ Diatrizoate Sod (Gastrografin) 10 ml Q30M PO 04/09/20 14:30 04/09/20 15:01 DC 04/09/20 15:05 Enoxaparin Sodium (Lovenox) 40 mg DAILY SC 04/10/20 09:00 Home Med (Med Rec Complete!) ASDIRECTED XX 04/08/20 23:00 04/08/20 23:07 DC Miscellaneous (Unresolved Non-Formulary Med Order) SEE LABEL COMMENTS DAILY XX 04/08/20 09:00 04/08/20 21:40 DC Ondansetron HCl (Zofran) 4 mg Q6HP PRN PO NAUSEA/VOMITING 04/09/20 18:15 Oxycodone/ Acetaminophen (Percocet 5mg/ 325mg Tablet) 2 tab Q6HP PRN PO PAIN 04/08/20 20:15 04/09/20 14:03 Piperacillin Sod/ Tazobactam Sod 4.5 gm/Dextrose 50 ml @ 50 mls/hr Q8H IV 04/08/20 22:00 04/09/20 17:08 Senna/Docusate Sodium (Senokot S) 1 tab BIDP PRN PO CONSTIPATION 04/09/20 18:15 Vancomycin HCl 750 mg/IV Miscellaneous Supplies 1 each/ Dextrose 275 ml @ 275 mls/hr Q12H IV 04/09/20 00:00 04/09/20 12:00 Vancomycin HCl 750 mg/IV Miscellaneous Supplies 1 each/ Dextrose 275 ml @ 275 mls/hr Q12H IV 04/09/20 01:00 04/09/20 14:03 Allergies Coded Allergies: MARIA DE JESUS Inhibitors (Verified Adverse Reaction, Intermediate, hyperkalemia, 04/08/20) adenosine (Verified Adverse Reaction, Intermediate, cardiac arrest, 04/08/20) angiotensin II acetate, human (Verified Adverse Reaction, Intermediate, hyperkalemia, 04/08/20) losartan (Verified Adverse Reaction, Intermediate, ARBs = HYPERKALEMIA, 04/08/20) morphine (Verified Adverse Reaction, Mild, itching, 04/08/20) MATY HERNANDEZ MD Apr 09, 2020 08:06
[2020-04-09 22:00] VITALS: BP 136/71
[2020-04-10] MEDS: VANCOMYCIN HCL 750 MG, VIAL MATE ADAPTER 1 EACH in D5W 250 ML IV SCH ×4 (00:33→14:38)
[2020-04-10] MEDS: PIPERACILLIN/TAZOBACTAM SOD 4.5 GM in D5W MINI-BAG PLUS 50 ML IV SCH ×3 (05:21→21:52)
[2020-04-10 06:00] VITALS: BP 154/80
--- NOTE | 2020-04-10 06:55 | IPNPDOC ---
Date Seen The patient was seen on 04/10/20. Progress Note SUBJECTIVE: Doing well, comfortable in bed this morning. Mild to moderate pain at scrotum, but feels swelling has generally diminished. No subjective fevers or chills overnight. Denies CP, SOB, palpitations. No n/v/d. Normal voiding. OBJECTIVE PHYSICAL EXAMINATION: VITAL SIGNS: Please see below. GENERAL: NAD, comfortable, sitting upright in bed. HEENT: PERRLA, EOMI CARDIOVASCULAR: RRR, normal S1, S2, no murmurs. RESPIRATORY: Lungs CTAB. No rales, wheezes, or rhonchi. Good inspiratory effort. ABDOMINAL: soft, non tender, BS+, no guarding, obese : scrotal swelling has dimished, pain 6/10 on manipulation, testicular palpation. Worse L > R. Reduced amount of purulent discharge. Erythema subsiding. EXTREMITIES: no joint deformity, normal ROM NEUROLOGICAL: AAO x 3, no focal neuro deficits PSYCHOLOGICAL: wnl LABORATORY DATA, IMAGING STUDIES, MICROBIOLOGY: Please see below. DVT prophylaxis ordered?: [Yes, lovenox] ASSESSMENT AND PLAN: This is a 64 yo male with a pmx of CAD, throat cancer (s/p radiation therapy), ERIBERTO, HTN, BPH (s/p TURP), and chronic scrotal cellulitis/orchitis for the past 10 years. Patient presented to [facility] ED with worsening scrotal edema, pain and purulent drainage. No signs of systemic infection. CT abdo/pelvis w contrast suggesting a fistulous tract from scrotum toward rectum however definitive termination is low rectum/anus cannot be confirmed/ruled out. PROBLEMS: 1. Scrotal cellulitis/orchitis: acute on chronic. Urology (Dr. Gordillo consulted). Suspect fistulous tract from scrotum to rectum. Afebrile. WBC wnl. Obtained CT abdo pelvis w contrast. Fistilous tract noted, cannot exclude termination in rectum. IV zosyn, vanc. Pending urology recommendations. Will require PO abx on DC. 2. Submandibular lymphedema: s/p rad therapy for throat ca. PT ordered. Outpatient ENT follow up. 3. ERIBERTO: on home CPAP. No nocturnal hypoxia on admission. Supplemental O2 prn. 4. Psoriasis: betamethasone ointment prn apply to hands. 5. Hx of throat ca: s/p rads therapy. CT neck showing no mass. Outpatient ENT/oncology f/u. DISPOSITION: DC home once medically stable. VS, I&O, 24H, Fishbone Vital Signs/I&O Vital Signs Date Time Temp Pulse Resp B/P (MAP) Pulse Ox O2 Delivery O2 Flow Rate FiO2 04/09/20 22:00 98.1 76 18 136/71 (92) 97 Room Air I&O- Last 24 Hours up to 6 AM 04/10/20 06:00 Intake Total 3940 ml Output Total 720 ml Balance 3220 ml Current Medications Current Medications Medications (Trade) Dose Ordered Sig/Jose Route PRN Reason Start Time Stop Time Status Last Admin Dose Admin Acetaminophen (Tylenol Tab) 650 mg Q4HP PRN PO MILD PAIN/FEVER 04/09/20 18:15 Albuterol Sulfate (Proventil, Ventolin Hfa) 2 puff QIDP PRN INH SHORTNESS OF BREATH 04/08/20 20:15 Aspirin (Aspirin Chewable) 81 mg DAILY PO 04/09/20 09:00 04/09/20 08:57 Atenolol (Tenormin) 25 mg DAILY PO 04/09/20 09:00 04/09/20 09:04 Atorvastatin Calcium (Lipitor) 20 mg QHS PO 04/08/20 21:00 04/09/20 21:17 Betamethasone Dipropionate (Diprosone) APPLY TO HANDS FOR PSORIA... BID PRN TOP PSORIASIS ON HANDS 04/08/20 21:45 Diatrizoate Meglum/ Diatrizoate Sod (Gastrografin) 10 ml Q30M PO 04/09/20 14:30 04/09/20 15:01 DC 04/09/20 15:05 Enoxaparin Sodium (Lovenox) 40 mg DAILY SC 04/10/20 09:00 Home Med (Med Rec Complete!) ASDIRECTED XX 04/08/20 23:00 04/08/20 23:07 DC Miscellaneous (Unresolved Non-Formulary Med Order) SEE LABEL COMMENTS DAILY XX 04/08/20 09:00 04/08/20 21:40 DC Ondansetron HCl (Zofran) 4 mg Q6HP PRN PO NAUSEA/VOMITING 04/09/20 18:15 Oxycodone/ Acetaminophen (Percocet 5mg/ 325mg Tablet) 2 tab Q6HP PRN PO PAIN 04/08/20 20:15 04/09/20 21:17 Piperacillin Sod/ Tazobactam Sod 4.5 gm/Dextrose 50 ml @ 50 mls/hr Q8H IV 04/08/20 22:00 04/10/20 05:21 Senna/Docusate Sodium (Senokot S) 1 tab BIDP PRN PO CONSTIPATION 04/09/20 18:15 Vancomycin HCl 750 mg/IV Miscellaneous Supplies 1 each/ Dextrose 275 ml @ 275 mls/hr Q12H IV 04/09/20 00:00 04/10/20 00:33 Vancomycin HCl 750 mg/IV Miscellaneous Supplies 1 each/ Dextrose 275 ml @ 275 mls/hr Q12H IV 04/09/20 01:00 04/10/20 02:04 Allergies Coded Allergies: MARIA DE JESUS Inhibitors (Verified Adverse Reaction, Intermediate, hyperkalemia, 04/08/20) adenosine (Verified Adverse Reaction, Intermediate, cardiac arrest, 04/08/20) angiotensin II acetate, human (Verified Adverse Reaction, Intermediate, hyperkalemia, 04/08/20) losartan (Verified Adverse Reaction, Intermediate, ARBs = HYPERKALEMIA, 04/08/20) morphine (Verified Adverse Reaction, Mild, itching, 04/08/20) MATY HERNANDEZ MD Apr 10, 2020 06:55
[2020-04-10 07:20] LABS: BASO % 0.7 % (0.0-1.0); EOS # 0.2 10^3/uL (0.0-0.5); EOS % 4.3 % (0.0-3.0); HEMATOCRIT 32.5 % (42.0-52.0); HEMOGLOBIN 10.7 g/dl (13.5-17.5); LYMPH # 0.8 10^3/uL (1.5-5.0); LYMPH % 18.5 % (24.0-44.0); MEAN CORPUSCULAR HEMOGLOBIN 31.1 pg (27.0-33.0); MEAN CORPUSCULAR HGB CONC 32.9 g/dl (32.0-36.5); MEAN CORPUSCULAR VOLUME 94.5 fl (80.0-96.0); MONO # 0.7 10^3/uL (0.0-0.8); MONO % 14.9 % (0.0-5.0); NEUTROPHILS # 2.7 10^3/uL (1.5-8.5); NEUTROPHILS % 61.4 % (36.0-66.0); PLATELET COUNT, AUTOMATED 234 10^3/uL (150-450); RED BLOOD COUNT 3.44 10^6/uL (4.30-6.10); WHITE BLOOD COUNT 4.4 10^3/uL (4.0-10.0)
[2020-04-10 08:04] LABS: ALBUMIN 3.1 GM/DL (3.2-5.2); ALT/SGPT 21 U/L (12-78); BILIRUBIN,TOTAL 0.6 MG/DL (0.2-1.0); BLOOD UREA NITROGEN 14 MG/DL (7-18); CALCIUM LEVEL 8.8 MG/DL (8.8-10.2); CARBON DIOXIDE LEVEL 30 MEQ/L (21-32); CHLORIDE LEVEL 107 MEQ/L (98-107); CREATININE FOR GFR 1.25 MG/DL (0.70-1.30); GLOMERULAR FILTRATION RATE > 60.0 (>49); GLUCOSE, FASTING 95 MG/DL (70-100); POTASSIUM SERUM 4.2 MEQ/L (3.5-5.1); SODIUM LEVEL 139 MEQ/L (136-145); TOTAL PROTEIN 6.5 GM/DL (6.4-8.2)
[2020-04-10] MEDS: ASPIRIN 81 MG CHEW TABLET PO SCH (08:17)
[2020-04-10] MEDS: atenoloL 25 MG TAB PO SCH (08:18)
[2020-04-10] MEDS: ENOXAPARIN 40MG/0.4ML SYRINGE (J1650 PER 10MG) SC SCH (08:19)
[2020-04-10] MEDS: PERCOCET 5MG/325MG TAB PO PRN ×2 (08:29→21:54)
[2020-04-10 14:00] VITALS: BP 160/87
[2020-04-10] MEDS: ATORVASTATIN 20 MG TAB PO SCH (21:52)
[2020-04-10 22:00] VITALS: BP 148/86
[2020-04-11] MEDS ORDERED: VANCOMYCIN HCL 1,000 MG, VIAL MATE ADAPTER 1 EACH in D5W 250 ML IV SCH (01:00)
[2020-04-11] MEDS ORDERED: VANCOMYCIN HCL 750 MG, VIAL MATE ADAPTER 1 EACH in D5W 250 ML IV SCH (05:00)
[2020-04-11 06:00] VITALS: BP 152/90
[2020-04-11] MEDS: PIPERACILLIN/TAZOBACTAM SOD 4.5 GM in D5W MINI-BAG PLUS 50 ML IV SCH (06:07)
[2020-04-11] MEDS: PERCOCET 5MG/325MG TAB PO PRN (07:44)
[2020-04-11 08:03] LABS: EOS # 0.2 10^3/uL (0.0-0.5); EOS % 4.6 % (0.0-3.0); HEMATOCRIT 37.7 % (42.0-52.0); HEMOGLOBIN 12.3 g/dl (13.5-17.5); LYMPH # 1.1 10^3/uL (1.5-5.0); LYMPH % 26.6 % (24.0-44.0); MEAN CORPUSCULAR HEMOGLOBIN 30.5 pg (27.0-33.0); MEAN CORPUSCULAR HGB CONC 32.6 g/dl (32.0-36.5); MEAN CORPUSCULAR VOLUME 93.5 fl (80.0-96.0); MONO # 0.5 10^3/uL (0.0-0.8); MONO % 11.7 % (0.0-5.0); NEUTROPHILS # 2.3 10^3/uL (1.5-8.5); NEUTROPHILS % 55.6 % (36.0-66.0); PLATELET COUNT, AUTOMATED 293 10^3/uL (150-450); RED BLOOD COUNT 4.03 10^6/uL (4.30-6.10); WHITE BLOOD COUNT 4.1 10^3/uL (4.0-10.0)
[2020-04-11 08:16] LABS: ALBUMIN 3.7 GM/DL (3.2-5.2); ALT/SGPT 24 U/L (12-78); BILIRUBIN,TOTAL 0.9 MG/DL (0.2-1.0); BLOOD UREA NITROGEN 12 MG/DL (7-18); CALCIUM LEVEL 9.6 MG/DL (8.8-10.2); CARBON DIOXIDE LEVEL 30 MEQ/L (21-32); CHLORIDE LEVEL 106 MEQ/L (98-107); CREATININE FOR GFR 1.18 MG/DL (0.70-1.30); GLOMERULAR FILTRATION RATE > 60.0 (>49); GLUCOSE, FASTING 99 MG/DL (70-100); POTASSIUM SERUM 4.2 MEQ/L (3.5-5.1); SODIUM LEVEL 139 MEQ/L (136-145); TOTAL PROTEIN 7.5 GM/DL (6.4-8.2)
[2020-04-11 10:03] VITALS: BP 138/84
[2020-04-11] MEDS: ASPIRIN 81 MG CHEW TABLET PO SCH (10:03)
[2020-04-11] MEDS: atenoloL 25 MG TAB PO SCH (10:03)
[2020-04-11] MEDS: ENOXAPARIN 40MG/0.4ML SYRINGE (J1650 PER 10MG) SC SCH (10:04)
[2020-04-11] MEDS ORDERED: SENN-52 PO (11:28)
[2020-04-11] MEDS ORDERED: BACT800T5 PO (11:28)
--- NOTE | 2020-04-11 11:33 | DS.PDOC ---
Discharge Summary General Date of Admission Apr 08, 2020 at 17:33 Date of Discharge 04/11/20 Primary Care Physician: Nazia Blum Attending Physician: MATY HERNANDEZ MD Specialist/Consultants Involve: MARISABEL KRAUS MD Discharge Summary PROCEDURES PERFORMED DURING STAY: [None]. ADMITTING DIAGNOSES: 1. Scrotal cellulitis. 2. Orchitis 3. Submandibular lymphedema 4. Throat cancer 5. ERIBERTO 6. Psoriasis DISCHARGE DIAGNOSES: 1. Scrotal cellulitis. 2. Orchitis 3. Submandibular lymphedema 4. Throat cancer 5. ERIBERTO 6. Psoriasis COMPLICATIONS/CHIEF COMPLAINT: Scrotal and testicular pain, with purulent drainage from scrotum HISTORY OF PRESENT ILLNESS: This is a 64 yo male with a pmx of CAD, throat cancer (s/p radiation therapy), ERIBERTO, HTN, BPH (s/p TURP), and chronic scrotal cellulitis/orchitis for the past 10 years. Patient presented to [facility] ED with worsening scrotal edema, pain and purulent drainage. No signs of systemic infection. HOSPITAL COURSE: Patient was admitted for management of orchitis and scrotal ce llulitis with IV antibiotics. Started IV zosyn and vancomycin. Urology was consulted, suspect a fistulous tract between scrotum and rectum. CT abdo pelvis with contrast, showing presence of fistulous tract along perineum, cannot exclude termination in anus/low rectum. Discussed with Dr. Baltazar, he has previously evaluated by colorectal service in [place]. To return for re-eval. Per Dr. Gordillo's recommendation, to follow up in urology clinic. Discharged with additional 7 days of PO bactrim DS. DISCHARGE MEDICATIONS: Please see below. ALLERGIES: Please see below. PHYSICAL EXAMINATION ON DISCHARGE: VITAL SIGNS: Please see below. GENERAL: NAD, comfortable, sitting upright in bed. HEENT: PERRLA, EOMI CARDIOVASCULAR: RRR, normal S1, S2, no murmurs. RESPIRATORY: Lungs CTAB. No rales, wheezes, or rhonchi. Good inspiratory effort. ABDOMINAL: soft, non tender, BS+, no guarding, obese : scrotal swelling has dimished, pain 6/10 on manipulation, testicular palpation. Worse L > R. Reduced amount of purulent discharge. Erythema greatly reduced. EXTREMITIES: no joint deformity, normal ROM NEUROLOGICAL: AAO x 3, no focal neuro deficits PSYCHOLOGICAL: wnl LABORATORY DATA: Please see below. IMAGING: CT abdomen/pelvis w IV contrast: IMPRESSION: 1. There is a diffuse decrease in hepatic parenchymal density, consistent with steatosis. 2. The gallbladder is incompletely distended. This is most likely related to incomplete fasting. Clinical correlation to exclude gallbladder pathology suggested. 3. Multiple bilateral simple appearing renal cysts measure up to 1.8 cm in the right kidney unchanged in comparison to the prior study. No follow-up required. 4. Punctate nonobstructive calculus lower pole of the left kidney. Bilateral renal vascular calcifications. 5. Moderate diverticulosis is present in the distal colon. No diverticulitis. 6. Inflammatory thickening of the scrotal lozano consistent with reported history of scrotal cellulitis. Inflammatory changes also demonstrated at the base of the penis and extend posteriorly in the perineum to the anterior margin of the anus. There is a thin hypoattenuating linear focus (? Fistulous tract) demonstrated along the right margin of the inflammatory changes in the perineum. No definitive communication with the low rectum or anterior margin of the anus is established although not excluded. ACTIVITY: [As tolerated]. DIET: regular DISCHARGE PLAN: DC home with PCP and specialist follow up. DISPOSITION: . DISCHARGE INSTRUCTIONS: 1. Complete 7 days bactrim DS 2 tab BID 2. Follow up with Dr. Cameron in urology clinic 3. Follow up with Colorectal service ITEMS TO FOLLOWUP ON ON OUTPATIENT: 1. completion of antibitioics 2. PT for submandibular lymphedema DISCHARGE CONDITION: [Stable]. TIME SPENT ON DISCHARGE: Greater than [30] minutes. Vital Signs/I&Os Vital Signs Date Time Temp Pulse Resp B/P (MAP) Pulse Ox O2 Delivery O2 Flow Rate FiO2 04/11/20 10:03 56 138/84 04/11/20 08:20 16 04/11/20 06:00 98.0 97 Room Air I&O- Last 24 Hours up to 6 AM 04/11/20 06:00 Intake Total 3180 ml Output Total 1650 ml Balance 1530 ml Laboratory Data Labs 24H Laboratory Tests 2 04/10/20 22:58: Vancomycin Level Trough 25.1H 04/11/20 06:52: Immature Granulocyte % (Auto) 0.5, Neutrophils (%) (Auto) 55.6, Lymphocytes (%) (Auto) 26.6, Monocytes (%) (Auto) 11.7H, Eosinophils (%) (Auto) 4.6H, Basophils (%) (Auto) 1.0, Neutrophils # (Auto) 2.3, Lymphocytes # (Auto) 1.1L, Monocytes # (Auto) 0.5, Eosinophils # (Auto) 0.2, Basophils # (Auto) 0.0, Nucleated Red Blood Cells % (auto) 0.0 04/11/20 07:00: Anion Gap 3L, Glomerular Filtration Rate > 60.0, Calcium Level 9.6, Total Bilirubin 0.9, Aspartate Amino Transf (AST/SGOT) 18, Alanine Aminotransferase (ALT/SGPT) 24, Alkaline Phosphatase 62, Total Protein 7.5, Albumin 3.7, Albumin/Globulin Ratio 1.0 CBC/BMP Laboratory Tests 04/11/20 06:52 04/11/20 07:00 Discharge Medications Scheduled Aspirin (Aspirin EC) 81 Mg Tablet.dr, 81 MG PO DAILY, (Reported) Atenolol (Atenolol) 25 Mg Tab, 25 MG PO DAILY, (Reported) Atorvastatin Calcium (Lipitor) 20 Mg Tab, 20 MG PO QHS, (Reported) Clobetasol Propionate (Temovate) 15 Gm Oint...g., 1 DOSE TOP BID, (Reported) APPLIES TO HANDS FOR PSORIASIS Sulfamethoxazole/Trimethoprim (Bactrim Ds Tablet) 1 Each Tablet, 2 TAB PO BID Scheduled PRN Oxycodone HCl/Acetaminophen (Oxycodone-Acetaminophen 5-325) 1 Each Tablet, 2 TAB PO Q6H PRN for PAIN, (Reported) Sennosides/Docusate Sodium (Senna Plus Tablet) 1 Each Tablet, 1 TAB PO BIDP PRN for CONSTIPATION Urea (Urea) 85 Gm Cream..g., 1 DOSE EXT DAILY PRN for DRY SKIN, (Reported) USES ON HANDS Allergies Coded Allergies: MARIA DE JESUS Inhibitors (Verified Adverse Reaction, Intermediate, hyperkalemia, 04/08/20) adenosine (Verified Adverse Reaction, Intermediate, cardiac arrest, 04/08/20) angiotensin II acetate, human (Verified Adverse Reaction, Intermediate, hyperkalemia, 04/08/20) losartan (Verified Adverse Reaction, Intermediate, ARBs = HYPERKALEMIA, 04/08/20) morphine (Verified Adverse Reaction, Mild, itching, 04/08/20) MATY HERNANDEZ MD Apr 11, 2020 11:33
[2020-04-12 20:45] LABS: ALBUMIN 3.5 GM/DL (3.2-5.2); ALT/SGPT 15 U/L (12-78); BILIRUBIN,DIRECT 0.5 MG/DL (0.0-0.2); CK-MB VALUE MASS < 1.0 NG/ML (<3.6); CPK CREATINE PHOSPHOKINASE 45 U/L (39-308); MB/CK RELATIVE INDEX 2.22 (< OR =4); NT-PRO BNP 364 PG/ML (<125); TOTAL PROTEIN 7.1 GM/DL (6.4-8.2); TROPONIN I < 0.02 NG/ML (< 0.10)
--- NOTE | 2020-05-07 15:10 | ECGEPIP ---
SINUS RHYTHM LOW QRS VOLTAGE IN PRECORDIAL LEADS POSSIBLE RIGHT VENTRICULAR CONDUCTION DELAY INFERIOR MYOCARDIAL INFARCTION, PROBABLY OLD WITH POSTERIOR EXTENSION ABNORMAL ECG NONSPECIFIC ST & T-WAVE ABNORMALITY SEE SCANNED DOWNTIME REPORT MTDD
[2020-05-19 08:24] LABS: BASO % 0.3 % (0.0-1.0); EOS # 0.1 10^3/uL (0.0-0.5); EOS % 0.4 % (0.0-3.0); HEMATOCRIT 37.9 % (42.0-52.0); HEMOGLOBIN 12.3 g/dl (13.5-17.5); LYMPH # 1.1 10^3/uL (1.5-5.0); LYMPH % 9.5 % (24.0-44.0); MEAN CORPUSCULAR HGB CONC 32.5 g/dl (32.0-36.5); MEAN CORPUSCULAR VOLUME 95.5 fl (80.0-96.0); MONO # 1.1 10^3/uL (0.0-0.8); MONO % 8.8 % (0.0-5.0); NEUTROPHILS # 9.6 10^3/uL (1.5-8.5); NEUTROPHILS % 80.5 % (36.0-66.0); PLATELET COUNT, AUTOMATED 235 10^3/uL (150-450); RED BLOOD COUNT 3.97 10^6/uL (4.30-6.10); WHITE BLOOD COUNT 11.9 10^3/uL (4.0-10.0)
[2020-05-19 09:33] LABS: INR 1.22; PARTIAL THROMBOPLASTIN TIME 50.5 SECONDS (24.2-38.5); PROTHROMBIN TIME 15.7 SECONDS (12.5-14.3)
== END 2020-04-11 12:28 | disposition home or self-care (01) | DRG 501 ==
LOC: M MS5PR 17:33
PROVIDERS: ADMIT Family Medicine; ATTEND Family Medicine
DX: N45.2 Orchitis (principal); I10 Essential (primary) hypertension; C14.0 Malignant neoplasm of pharynx, unspecified; G47.33 Obstructive sleep apnea (adult) (pediatric); L40.8 Other psoriasis; I89.0 Lymphedema, not elsewhere classified; I25.10 Atherosclerotic heart disease of native coronary artery without angina pectoris; Z79.899 Other long term (current) drug therapy; Z79.82 Long term (current) use of aspirin; Z88.5 Allergy status to narcotic agent; Z88.8 Allergy status to other drugs, medicaments and biological substances

== ENCOUNTER 2020-04-18 14:15 | Outpatient (RCR) | payer OTHER ==
[~2020-04-18 14:15] MED LIST changes: -**UNRESOLVED NON-FORMULARY MED ORDER XX SCH; +ASPI-161 PO; -ISOVUE-370 76% 100ML VIAL As Ordered ONE; +SENN-52 PO; +TEMO0.0517 TOP; +UREA20CR4 EXT; -VANCOMYCIN 1000MG/20ML VIAL As Ordered ONE; -ZOSYN 3.375GM VIAL (J2543) As Ordered ONE
== END 2020-04-21 ==
LOC: M PT 14:15
PROVIDERS: ATTEND Nurse Practitioner Adult Health
DX: I89.0 Lymphedema, not elsewhere classified (principal); R22.1 Localized swelling, mass and lump, neck

== ENCOUNTER → 2020-05-07 | Outpatient (CLI) | payer OTHER ==
[~2020-05-07] MED LIST changes: +FAMO40TA3 PO; +META1POW PO; +PERI12LIQ SSP; +VENTAER INH
--- NOTE | 2020-05-26 11:29 | RADONC ---
DATE: DIAGNOSIS: Supraglottic larynx cancer. Stage II, T2 N0 M0. ECOG performance status 1. Follow-up note: Mr. Mishra is a very pleasant 64-year-old white male with a diagnosis of a supraglottic larynx cancer who is presenting to us today for a routine follow-up visit now five months post completion of external beam radiation therapy. The patient reports that he is being seen by his head and neck surgeon, Dr. Baldomero Modi every four weeks and has been placed on prednisone for edema in the larynx as well as the neck. He reports the edema has caused him difficulties with speech as well as swallowing but the prednisone has helped significantly. The patients review of systems is basically otherwise noncontributory. He denies nausea, vomiting, fevers, chills, night sweats, diplopia, headaches, anxiety, depression, anorexia, weight loss, visual disturbances, chest pain, urinary and bowel difficulties, bone pain or neurological problems. PHYSICAL EXAMINATION: GENERAL: The patient is a well-developed, well-nourished white male in no acute distress. HEENT: Normocephalic, atraumatic. Extraocular movements are intact. Oral cavity examination reveals no evidence of nodularity, ulceration or malignancy. LYMPH NODES: There is no palpable cervical, supraclavicular, infraclavicular or axillary lymphadenopathy present. Fiberoptic examination was deferred as he just underwent this last week with Dr. Modi. LUNGS: Clear to auscultation and percussion. ASSESSMENT: The patient is clinically stable at this point. Dr. Modi has reported to him no sign of actual residual or recurrent malignancy. He continues to have edema secondary to his radiation which is being managed at this time with prednisone. I have recommended that he continue with his prednisone at this point. I have informed him that this edema can go on for quite some time but usually stabilizes and is largely resolved by one out from treatment. I have not set him up for any follow-up in this office at this time since he is being followed by Dr. Modi every four weeks. I have instructed him to contact us if he wishes to come back or Dr. Modi can refer him back as well. We are available to him at anytime. [facility] HOSPITALMarycarmen
== END ==
LOC: M ONCR 13:00
PROVIDERS: ATTEND Radiology Radiation Oncology
DX: Z53.9 Procedure and treatment not carried out, unspecified reason (principal); C32.1 Malignant neoplasm of supraglottis

== ENCOUNTER 2020-05-09 15:00 | Outpatient (RCR) | payer OTHER ==
[~2020-05-09 15:00] MED LIST changes: -FAMO40TA3 PO; -META1POW PO; -PERI12LIQ SSP; -VENTAER INH
== END 2020-05-21 ==
LOC: M PT 15:00
PROVIDERS: ATTEND Nurse Practitioner Adult Health
DX: C32.1 Malignant neoplasm of supraglottis (principal)

== ENCOUNTER → 2020-05-30 | Outpatient (CLI) | payer OTHER ==
[~2020-05-30] MED LIST changes: +FAMO40TA3 PO; +PERI12LIQ SSP; +VENTAER INH
== END ==
LOC: M LABSMTC 11:29
PROVIDERS: ATTEND Anesthesiology
DX: Z01.812 Encounter for preprocedural laboratory examination (principal); Z20.828 Contact with and (suspected) exposure to other viral communicable diseases
CPT/HCPCS: C9803; U0003

== ENCOUNTER 2020-06-04 07:20 | Day surgery (SDC) | payer OTHER ==
[~2020-06-04] VITALS: Ht 182.9 cm; Wt 124.7 kg
[~2020-06-04 07:20] MED LIST changes: -FAMO40TA3 PO; +LIDOCAINE 2% 100MG/5ML SDV (FOR ANES.) As Ordered ONE; +NS 1,000 ML IV ONE; -PERI12LIQ SSP; -VENTAER INH; +propofoL 200 MG/20 ML VIAL As Ordered ONE
--- NOTE | 2020-06-04 09:20 | ROOR ---
Patient Name: Foster Mishra Procedure Date: 06/04/2020 8:53 AM Date of : 1955 Age: 64 Room: [facility] Gender: Male Note Status: Finalized Procedure: Colonoscopy Indications: High risk colon cancer surveillance: Personal history of colonic polyps Providers: DO Roberta Holloway MD: Nazia Blum NP Requesting Provider: Medicines: Propofol per Anesthesia Complications: No immediate complications. Procedure: Pre-Anesthesia Assessment: - Prior to the procedure, a History and Physical was performed, and patient medications and allergies were reviewed. The patient is competent. The risks and benefits of the procedure and the sedation options and risks were discussed with the patient. All questions were answered and informed consent was obtained. Patient identification and proposed procedure were verified by the physician, the nurse, the anesthesiologist and the technician's helper in the endoscopy suite. Mental Status Examination: alert and oriented. Airway Examination: normal oropharyngeal airway and neck mobility. Respiratory Examination: clear to auscultation. CV Examination: normal. Prophylactic Antibiotics: The patient does not require prophylactic antibiotics. Prior Anticoagulants: The patient has taken no previous anticoagulant or antiplatelet agents. ASA Grade Assessment: III - A patient with severe systemic disease. After reviewing the risks and benefits, the patient was deemed in satisfactory condition to undergo the procedure. The anesthesia plan was to use monitored anesthesia care (MAC). Immediately prior to administration of medications, the patient was re-assessed for adequacy to receive sedatives. The heart rate, respiratory rate, oxygen saturations, blood pressure, adequacy of pulmonary ventilation, and response to care were monitored throughout the procedure. The physical status of the patient was re-assessed after the procedure. The Colonoscope was introduced through the anus and advanced to the cecum, identified by the ileocecal valve. The patient tolerated the procedure well. The quality of the bowel preparation was inadequate. Findings: A less than 5 mm polyp was found in the ascending colon. The polyp was hyperplastic. The polyp was removed with a jumbo cold forceps. Resection and retrieval were complete. Estimated blood loss was minimal. A large amount of semi-liquid stool was found in the entire colon, interfering with visualization. Multiple small and large-mouthed diverticula were found in the sigmoid colon. Impression: - Preparation of the colon was inadequate. - One less than 5 mm polyp in the ascending colon, removed with a jumbo cold forceps. Resected and retrieved. - Stool in the entire examined colon. - Diverticulosis in the sigmoid colon. Recommendation: - Patient has a contact number available for emergencies. The signs and symptoms of potential delayed complications were discussed with the patient. Return to normal activities tomorrow. Written discharge instructions were provided to the patient. - Await pathology results. - Repeat colonoscopy in 1 year because the bowel preparation was suboptimal. - He will need to be scoped in the operating room with intubation due to severe sleep apnea. We had to wake him up during the procedure. Lupillo Baltazar DO 06/04/2020 9:19:32 AM Electronically signed by Lupillo Baltazar DO Number of Addenda: 0 Note Initiated On: 06/04/2020 8:53 AM Estimated Blood Loss: Estimated blood loss was minimal.
[2020-06-04 09:46] VITALS: BP 139/91
== END 2020-06-04 09:49 | disposition home or self-care (01) ==
LOC: M OPP 07:20
PROVIDERS: ATTEND Surgery
DX: Z12.11 Encounter for screening for malignant neoplasm of colon (principal); Z86.010 Personal history of colon polyps; D12.2 Benign neoplasm of ascending colon; K57.30 Diverticulosis of large intestine without perforation or abscess without bleeding; Z79.82 Long term (current) use of aspirin; Z79.899 Other long term (current) drug therapy; Z85.46 Personal history of malignant neoplasm of prostate; Z88.5 Allergy status to narcotic agent; Z87.891 Personal history of nicotine dependence

== ENCOUNTER 2020-06-06 07:06 | Inpatient (IN) | payer OTHER ==
[~2020-06-06] VITALS: Ht 182.9 cm; Wt 126.2 kg
[~2020-06-06 07:06] MED LIST changes: -LIDOCAINE 2% 100MG/5ML SDV (FOR ANES.) As Ordered ONE; -NS 1,000 ML IV ONE; -propofoL 200 MG/20 ML VIAL As Ordered ONE
[2020-06-06] MEDS ORDERED: SUCRALFATE SUSP 1GM/10ML UD PO ONE (07:45)
[2020-06-06] MEDS ORDERED: ISOVUE-370 76% 100ML VIAL As Ordered ONE (07:55)
[2020-06-06 07:57] LABS: BASO % 0.3 % (0.0-1.0); EOS % 0.1 % (0.0-3.0); HEMOGLOBIN 12.4 g/dl (13.5-17.5); LYMPH # 1.1 10^3/uL (1.5-5.0); LYMPH % 11.4 % (24.0-44.0); MEAN CORPUSCULAR HEMOGLOBIN 30.5 pg (27.0-33.0); MEAN CORPUSCULAR HGB CONC 31.8 g/dl (32.0-36.5); MEAN CORPUSCULAR VOLUME 96.1 fl (80.0-96.0); NEUTROPHILS # 7.7 10^3/uL (1.5-8.5); NEUTROPHILS % 77.4 % (36.0-66.0); PLATELET COUNT, AUTOMATED 245 10^3/uL (150-450); RED BLOOD COUNT 4.06 10^6/uL (4.30-6.10); WHITE BLOOD COUNT 9.9 10^3/uL (4.0-10.0)
[2020-06-06 08:22] LABS: ALBUMIN 2.8 GM/DL (3.2-5.2); BILIRUBIN,DIRECT 0.5 MG/DL (0.0-0.2); BILIRUBIN,TOTAL 1.6 MG/DL (0.2-1.0); TOTAL PROTEIN 6.3 GM/DL (6.4-8.2)
--- NOTE | 2020-06-06 08:47 | REPVR ---
PROCEDURE INFORMATION: Exam: CT Abdomen And Pelvis With Contrast Exam date and time: 06/06/2020 7:58 AM Age: 64 years old Clinical indication: Abdominal pain; Additional info: Abd pain S/P colonoscopy TECHNIQUE: Imaging protocol: Computed tomography of the abdomen and pelvis with intravenous contrast. Radiation optimization: All CT scans at this facility use at least one of these dose optimization techniques: automated exposure control; mA and/or kV adjustment per patient size (includes targeted exams where dose is matched to clinical indication); or iterative reconstruction. Contrast material: ISOVUE 370; Contrast volume: 100 ml; Contrast route: INTRAVENOUS (IV); COMPARISON: CT ABD PELVIS WITH CONTRAST 04/09/2020 4:45 PM FINDINGS: Lungs: Linear atelectasis or scarring in the right middle lobe lingula. Mild dependent atelectasis at the right base. Liver: Hepatomegaly and steatosis. Gallbladder and bile ducts: Normal. No calcified stones. No ductal dilation. Pancreas: Normal. No ductal dilation. Spleen: Normal. No splenomegaly. Adrenals: Normal. No mass. Kidneys and ureters: Bilateral renal cortical atrophy and scarring. Bilateral simple renal cysts. Nonspecific bilateral perinephric fat stranding. Stomach and bowel: Diverticulosis of colon. Acute diverticulitis involving proximal sigmoid with gross pneumoperitoneum and small interloop fluid. A fistulous communication with adjacent loop of small bowel is not excluded. Appendix: No evidence of appendicitis. Intraperitoneal space: See above. Vasculature: Atherosclerotic disease of coronary arteries. Atherosclerotic disease of the abdominal aorta. Lymph nodes: Unremarkable. No enlarged lymph nodes. Urinary bladder: Unremarkable as visualized. Reproductive: Unremarkable as visualized. Bones/joints: Status post bilateral hip arthroplasties. Soft tissues: Fat containing bilateral inguinal hernias. IMPRESSION: Diverticulosis of colon. Acute diverticulitis involving proximal sigmoid with gross pneumoperitoneum and small interloop fluid. A fistulous communication with adjacent loop of small bowel is not excluded. COMMENTS: Consistent with the [employer]'s Incidental Findings Committee white paper (J Am Mable Radiol 2018): Any incidental renal lesion less than 1 cm or classified as too small to characterize, or any incidental cystic renal lesion characterized as simple-appearing, is likely benign. No follow-up imaging is recommended for these lesions per consensus recommendations based on imaging criteria. Electronically signed by: Hugo Mccartney On 06/06/2020 08:46:55 AM
[2020-06-06] MEDS ORDERED: PIPERACILLIN/TAZOBACTAM SOD 4.5 GM in D5W MINI-BAG PLUS 50 ML IV ONE (09:15)
[2020-06-06] MEDS ORDERED: NS 1,000 ML IV SCH (09:15)
[2020-06-06] MEDS ORDERED: FAMO40TA3 PO (10:11)
[2020-06-06] MEDS ORDERED: PERI12LIQ SSP (10:11)
[2020-06-06] MEDS ORDERED: VENTAER INH (10:11)
[2020-06-06] MEDS ORDERED: ONDANSETRON 4MG/2ML VIAL As Ordered ONE (12:39)
[2020-06-06] MEDS ORDERED: LIDOCAINE 2% 100MG/5ML SDV (FOR ANES.) As Ordered ONE (12:39)
[2020-06-06] MEDS ORDERED: dexameTHASONE 4 MG/ML 1ML VIAL (J1100 PER 1MG) As Ordered ONE (12:39)
[2020-06-06] MEDS ORDERED: HYDROmorphone HCL 2 MG/ML 1ML VIAL (J1170) As Ordered ONE (12:39)
[2020-06-06] MEDS ORDERED: ROCURONIUM BROMIDE 50 MG/5 ML VIAL As Ordered ONE (12:39)
[2020-06-06] MEDS ORDERED: ACETAMINOPHEN 1000MG 100ML IV BTL (OFIRMEV) (J0131 PER 10MG) As Ordered ONE (12:39)
[2020-06-06] MEDS ORDERED: SUGAMMADEX SODIUM 500 MG/5 ML VIAL (BRIDION) As Ordered ONE (12:39)
[2020-06-06] MEDS ORDERED: KETOROLAC 60MG 2ML VIAL As Ordered ONE (12:39)
[2020-06-06] MEDS ORDERED: propofoL 200 MG/20 ML VIAL As Ordered ONE (12:39)
[2020-06-06] MEDS ORDERED: fentaNYL 100 MCG/2 ML INJECTION (J3010) As Ordered ONE (12:40)
[2020-06-06] MEDS ORDERED: MIDAZOLAM INJ 2MG/2ML VIAL (J2250 PER 1MG) As Ordered ONE (12:40)
[2020-06-06] MEDS ORDERED: LIDOCAINE 1% SDV 30ML VIAL As Ordered ONE (12:44)
[2020-06-06] MEDS ORDERED: BUPIVACAINE HCL 0.25% 30ML VIAL As Ordered ONE (12:44)
[2020-06-06] MEDS ORDERED: PHENYLEPHRINE 10MG/ML 1ML VIAL (J2370 PER 1) As Ordered ONE (12:53)
[2020-06-06] MEDS ORDERED: ALBUTEROL SULFATE 2.5 MG/0.5 ML INH NEB SOLN As Ordered ONE (13:07)
[2020-06-06] MEDS ORDERED: ALBUTEROL SULFATE 2.5 MG/0.5 ML INH NEB SOLN INH ONE (14:00)
[2020-06-06] MEDS ORDERED: VASOPRESSIN INJ 20 UNITS/ML VIAL As Ordered ONE (14:00)
[2020-06-06] MEDS ORDERED: ZOSYN 3.375GM VIAL (J2543) As Ordered ONE (15:31)
[2020-06-06] MEDS ORDERED: ACETAMINOPHEN TAB 650MG DOSE (2X325MG) PO PRN (16:45)
[2020-06-06] MEDS ORDERED: ONDANSETRON 4MG/2ML VIAL IV PRN ×2 (16:45→17:15)
[2020-06-06] MEDS ORDERED: MORPHINE 2 MG/ML 1ML VIAL (J2270) IV PRN (16:45)
[2020-06-06] MEDS ORDERED: diphenhydrAMINE 25MG CAP PO PRN (16:45)
[2020-06-06] MEDS ORDERED: HYDROMORPHONE HCL 0.5 MG/ 0.5 ML SYRINGE (J1170 PER 1) As Ordered ONE (16:48)
[2020-06-06] MEDS: KETOROLAC 30 MG/ML 1ML VIAL IV PRN (17:09)
[2020-06-06] MEDS ORDERED: fentaNYL 100 MCG/2 ML INJECTION (J3010) IV PRN (17:15)
[2020-06-06] MEDS ORDERED: LR 1,000 ML IV SCH (17:15)
[2020-06-06] MEDS ORDERED: oxyCODONE 5MG TAB PO PRN (17:15)
[2020-06-06] MEDS ORDERED: HYDROMORPHONE HCL 0.5 MG/ 0.5 ML SYRINGE (J1170 PER 1) IV PRN (17:15)
[2020-06-06 18:08] VITALS: BP 137/69
[2020-06-06 18:30] VITALS: BP 127/74
[2020-06-06] MEDS: PIPERACILLIN/TAZOBACTAM SOD 3.375 GM in D5W MINI-BAG PLUS 50 ML IV SCH ×2 (18:31→23:11)
[2020-06-06 19:30] VITALS: BP 134/63
[2020-06-06 20:30] VITALS: BP 135/63
[2020-06-06] MEDS: CHLORHEXIDINE GLUCONATE 0.12 % 15ML UDC (PERIDEX ORAL RINSE) SSP SCH (21:00)
[2020-06-06] MEDS ORDERED: CLOBETASOL PROP 0.05% OINT 30 GM TOP PRN (21:00)
[2020-06-06] MEDS: ATORVASTATIN 20 MG TAB PO SCH (21:18)
[2020-06-06] MEDS: SENOKOT S TAB PO SCH (21:18)
[2020-06-06] MEDS: PERCOCET 5MG/325MG TAB PO PRN (21:24)
[2020-06-06 21:30] VITALS: BP 121/72
[2020-06-06 22:30] VITALS: BP 119/66
[2020-06-06] MEDS: LR 1,000 ML IV SCH (23:11)
[2020-06-07] VITALS: BP 118/72
[2020-06-07 04:00] VITALS: BP 143/76
[2020-06-07] MEDS: PIPERACILLIN/TAZOBACTAM SOD 3.375 GM in D5W MINI-BAG PLUS 50 ML IV SCH ×4 (04:52→23:55)
[2020-06-07] MEDS: PERCOCET 5MG/325MG TAB PO PRN ×3 (04:54→23:56)
[2020-06-07 06:21] LABS: BASO % 0.1 % (0.0-1.0); HEMATOCRIT 36.3 % (42.0-52.0); HEMOGLOBIN 11.6 g/dl (13.5-17.5); LYMPH # 0.7 10^3/uL (1.5-5.0); LYMPH % 10.3 % (24.0-44.0); MEAN CORPUSCULAR HEMOGLOBIN 31.4 pg (27.0-33.0); MEAN CORPUSCULAR VOLUME 98.4 fl (80.0-96.0); MONO # 0.7 10^3/uL (0.0-0.8); MONO % 9.9 % (0.0-5.0); NEUTROPHILS # 5.4 10^3/uL (1.5-8.5); NEUTROPHILS % 78.7 % (36.0-66.0); PLATELET COUNT, AUTOMATED 209 10^3/uL (150-450); RED BLOOD COUNT 3.69 10^6/uL (4.30-6.10); WHITE BLOOD COUNT 6.9 10^3/uL (4.0-10.0)
[2020-06-07 06:33] LABS: BLOOD UREA NITROGEN 21 MG/DL (7-18); CALCIUM LEVEL 8.1 MG/DL (8.8-10.2); CARBON DIOXIDE LEVEL 30 MEQ/L (21-32); CHLORIDE LEVEL 106 MEQ/L (98-107); CREATININE FOR GFR 1.17 MG/DL (0.70-1.30); GLOMERULAR FILTRATION RATE > 60.0 (>49); GLUCOSE, FASTING 113 MG/DL (70-100); POTASSIUM SERUM 4.7 MEQ/L (3.5-5.1); SODIUM LEVEL 141 MEQ/L (136-145)
--- NOTE | 2020-06-07 07:36 | ROOPDOC ---
[facility] Report Of Operation Report of Operation DATE OF PROCEDURE: 06/06/20 PREPROCEDURE DIAGNOSES: acute diverticulitis with perforation. POSTPROCEDURE DIAGNOSES: same. PROCEDURE: Laparoscopic sigmoid colectomy, end colostomy. SURGEON: Robert Lange MD FLEET MANAGER/DISPATCH: Rohini Zhang ([facility]) ANESTHESIA: General Anesthesia. ESTIMATED BLOOD LOSS: Approximately 25 mLs mL. COMPLICATIONS: none. REMARKS: . PROCEDURE NOTE: localized free perforation at the sigmoid colon/descending colon junction with interloop abscess between colon and small bowel adhered to the area. No fistula. No stool spillage. small amount of exudative deposit around the area but not beyond the area of perforation. no collection of fluid around liver. DESCRIPTION OF PROCEDURE: . ROBERT LANGE MD Jun 07, 2020 07:36
[2020-06-07 08:00] VITALS: BP 162/78
[2020-06-07] MEDS: LR 1,000 ML IV SCH ×2 (08:00→08:41)
[2020-06-07] MEDS: SIMETHICONE 80 MG CHEW TAB PO PRN (08:40)
[2020-06-07] MEDS: PANTOPRAZOLE 40MG VIAL (C9113 PER 1) IV SCH (08:41)
[2020-06-07] MEDS: FAMOTIDINE 20 MG TAB PO SCH (08:41)
[2020-06-07] MEDS: SENOKOT S TAB PO SCH ×2 (08:41→20:33)
[2020-06-07] MEDS: ENOXAPARIN 40MG/0.4ML SYRINGE (J1650 PER 10MG) SC SCH (08:42)
--- NOTE | 2020-06-07 08:45 | HPEPDOC ---
General Surgery H&P Date of Admission Jun 06, 2020 Attending Physician: FELA LANGE MD History and Physical CHIEF COMPLAINT: abdominal pain HISTORY OF PRESENT ILLNESS: Patient presented to the ER at about 830 am today with sudden onset of severe sharp abdominal pain centered at the umbilicus and left lower quadrant area that started about midnigt last night accompanied by cold sweats, nausea though no vomiting or diarrhea. He just had colonoscopy two days ago revealing diverticulosis and a small polyp removed at the transverse colon. ALLERGIES: Please see below. HOME MEDICATIONS: Please see below. PAST MEDICAL HISTORY: 1. . 2. . PAST SURGICAL HISTORY: 1. . 2. . PERSONAL/SOCIAL HISTORY: [Denies smoking, alcohol use, or recreational drug use]. REVIEW OF SYSTEMS: GENERAL: [Denies chills, fatigue, fever, weight gain and weight loss]. HEENT: [Denies blurred vision and double vision. Denies ear symptoms. Denies hoarseness]. NECK: [Denies any neck pain]. CARDIOVASCULAR: [Denies chest pain and palpitations]. MUSCULOSKELETAL: [Denies arthralgias, back pain and thrombophlebitis]. SKIN: [Denies rash]. NEUROLOGIC: [Denies headache, stroke and transient ischemic attack]. PSYCHIATRIC: [Denies anxiety and depression]. ENDOCRINE: [Denies thyroid disease]. HEMATOLOGY/ONCOLOGY: [Denies any bleeding or clotting disorder]. HEART: [Denies any chest pains, palpitations, paroxysmal dyspnea, orthopnea]. PULMONARY: [Denies chronic cough, dyspnea and wheezing]. GASTROINTESTINAL: [Denies rectal bleeding, family history of colon cancer, constipation, diarrhea, dysphagia, heartburn and jaundice]. GENITOURINARY: [Denies dysuria, frequency, hematuria and nocturia]. ENDOCRINE: [Denies polydipsia, polyphagia, polyuria, heat or cold intolerance]. INFECTIOUS: [Denies any recent upper respiratory tract infection, UTI, need for use of antibiotics]. NUTRITION: [Reports good appetite]. PHYSICAL EXAMINATION: VITAL SIGNS: Please see below. GENERAL APPEARANCE: [Patient seen at bedside, appears comfortable]. [Awake, alert, oriented]. HEENT: [Normocephalic, atraumatic. Roby palpebral conjunctivae. Anicteric sclerae. Lips moist]. CHEST: [No chest wall abnormalities. Normal respiratory motion/effort]. NECK: [Supple. No thyromegaly. No lymphadenopathies]. LUNGS: [Lung sounds are clear to auscultation bilaterally. No wheezing appreciated]. HEART: [No chest wall abnormalities. Heart rate and rhythm are regular with no murmurs]. ABDOMEN: [Abdomen is obese, soft, slightly rounded. No hepatosplenomegaly. No umbilical or groin herniations, nondistended. No noticeable rebound or guarding. No grimacing with palpation. No rebound tenderness. No masses appreciated]. SKIN: [Warm, moist]. EXTREMITIES: [Extremities have no deformities. No edema identified]. NEUROLOGICAL: . ANCILLARIES: . LABORATORY DATA: Please see below. MICROBIOLOGY: Please see below. IMAGING: . IMPRESSION AND PLAN: Acute diverticulitis with free perforation Patient has generalized peritonitis from the perforation of what most likely is from diverticulitis. We will bring him to the OR for diagnostic laparoscopy, mo st likely sigmoid colon resection and colostomy. Vital Signs Vital Signs Date Time Temp Pulse Resp B/P (MAP) Pulse Ox O2 Delivery O2 Flow Rate FiO2 06/07/20 08:00 96.0 67 18 162/78 (106) 99 Nasal Cannula 3.0 06/06/20 22:30 31 I&Os I&O- Last 24 Hours up to 6 AM 06/07/20 06:00 Intake Total 3400 ml Output Total 1065 ml Balance 2335 ml Laboratory Data Labs 24H Laboratory Tests 2 06/06/20 09:44: Coronavirus (COVID-19)(PCR) NEGATIVE 06/07/20 01:58: Bedside Glucose (Misc Panel) 128H 06/07/20 05:12: Immature Granulocyte % (Auto) 1.0, Neutrophils (%) (Auto) 78.7H, Lymphocytes (%) (Auto) 10.3L, Monocytes (%) (Auto) 9.9H, Eosinophils (%) (Auto) 0.0, Basophils (%) (Auto) 0.1, Neutrophils # (Auto) 5.4, Lymphocytes # (Auto) 0.7L, Monocytes # (Auto) 0.7, Eosinophils # (Auto) 0.0, Basophils # (Auto) 0.0, Nucleated Red Blood Cells % (auto) 0.0, Anion Gap 5L, Glomerular Filtration Rate > 60.0, Calcium Level 8.1L CBC/BMP Laboratory Tests 06/07/20 05:12 Microbiology Microbiology 06/06/20 Gram Stain - Final, Resulted 06/06/20 Wound Culture, Resulted Pending 06/06/20 Anaerobic Culture, Resulted Pending Home Medications Scheduled Aspirin (Aspirin EC) 81 Mg Tablet.dr, 81 MG PO DAILY, (Reported) Atenolol (Atenolol) 25 Mg Tab, 25 MG PO DAILY, (Reported) Atorvastatin Calcium (Lipitor) 20 Mg Tab, 20 MG PO QHS, (Reported) Chlorhexidine Gluconate (Chlorhexidine Gluconate) 473 Ml Mouthwash, 15 ML SSP TID, (Reported) Famotidine (Famotidine) 40 Mg Tablet, 40 MG PO DAILY, (Reported) NEW MED, HAS NOT STARTED Scheduled PRN Albuterol Sulfate (Ventolin Hfa) 18 Gm Hfa.aer.ad, 2 PUFFS INH QID PRN for SHORTNESS OF BREATH, (Reported) Clobetasol Propionate (Temovate) 15 Gm Oint...g., 1 DOSE TOP BID PRN for DRY SKIN, (Reported) APPLIES TO HANDS FOR PSORIASIS Oxycodone HCl/Acetaminophen (Oxycodone-Acetaminophen 5-325) 1 Each Tablet, 2 TAB PO Q6H PRN for PAIN, (Reported) Urea (Urea) 85 Gm Cream..g., 1 DOSE EXT DAILY PRN for DRY SKIN, (Reported) USES ON HANDS Allergies Coded Allergies: MARIA DE JESUS Inhibitors (Verified Adverse Reaction, Intermediate, hyperkalemia, 06/06/20) adenosine (Verified Adverse Reaction, Intermediate, cardiac arrest, 06/06/20) angiotensin II acetate, human (Verified Adverse Reaction, Intermediate, hyperkalemia, 06/06/20) losartan (Verified Adverse Reaction, Intermediate, ARBs = HYPERKALEMIA, 06/06/20) morphine (Verified Adverse Reaction, Mild, itching, 06/06/20) FELA LANGE MD Jun 07, 2020 08:45
--- NOTE | 2020-06-07 08:46 | IPNPDOC ---
Text Note Date of Service The patient was seen on 06/07/20. NOTE POD1 laparoscopic partial sigmoid colon resection, end colostomy for acute d iverticulitis with perforation clears continue abx ambulate to hallways o2 at night for sleep apnea keep in pcu for continued monitoring ostomy teaching. I will give him some stool softeners and metamucil to aid with passage of soft stools from the colostomy. VS,Fishbone, I+O VS, Fishbone, I+O Laboratory Tests 06/07/20 05:12 Vital Signs Date Time Temp Pulse Resp B/P (MAP) Pulse Ox O2 Delivery O2 Flow Rate FiO2 06/07/20 08:00 96.0 67 18 162/78 (106) 99 Nasal Cannula 3.0 06/06/20 22:30 31 I&O- Last 24 Hours up to 6 AM 06/07/20 06:00 Intake Total 3400 ml Output Total 1065 ml Balance 2335 ml FELA LANGE MD Jun 07, 2020 08:46
[2020-06-07] MEDS: CHLORHEXIDINE GLUCONATE 0.12 % 15ML UDC (PERIDEX ORAL RINSE) SSP SCH ×3 (09:00→20:34)
[2020-06-07] MEDS ORDERED: atenoloL 25 MG TAB PO SCH (09:00)
[2020-06-07] MEDS: KETOROLAC 30 MG/ML 1ML VIAL IV PRN ×2 (09:56→20:34)
[2020-06-07 12:00] VITALS: BP 150/78
[2020-06-07] MEDS: METAMUCIL (PSYLLIUM) PACKET PO SCH ×2 (12:45→20:35)
[2020-06-07 16:00] VITALS: BP 144/95
--- NOTE | 2020-06-07 17:32 | HPEPDOC ---
[facility] Medical History & Physical Date of Admission Jun 06, 2020 Date of Service: Jun 07, 2020 Attending Physician: REINIER ESTRADA MD History and Physical CHIEF COMPLAINT: abdominal pain HISTORY OF PRESENT ILLNESS: 64 yo man with morbid obesity, ERIBERTO previously on CPAP but recently unable to tolerate it after radiation for recent throat cancer, COPD, HTN, CAD, HLD, prior smoker, GERD who presented with abdominal pain and was found to have acute diverticulitis with perforation and had a laparoscopic partial sigmoid colon resection and end colostomy and placed on zosyn with medicine now consulted for noted bradycardia and eventual cardiac pauses, of which the longest was ~5 sec while sleeping. He is currently on 2L NC and has mild decrease in saturation while asleep as well. He is regularly on atenolol 25mg for HTN at baseline without complications, and appears to only have the asymptomatic bradycardia and pauses while asleep. He otherwise reports no chest pain, waking up with gasping, palpitations, dizziness, nausea, emesis or hypotension. PAST MEDICAL HISTORY: Morbid obesity COPD ERIBERTO not able to tolerated CPAP since radiation for throat cancer chronic back pain hypertension hyperlipidemia arthritis GERD Fatty liver history of tobacco abuse in the past Surgical History: History of removal of all his teeth except 1 secondary to throat CA tonsillectomy adenectomy right knee replacement skin graft tracheostomy surgery secondary to apical ascites right hip replacement lumbar laminectomy Cardiac stent TURP POD1 s/p laparoscopic partial sigmoid colon resection with end colostomy Family History Father had VT and mother had a cancer Smoker: former Smoker Alcohol: Denies Drugs: denies ALLERGIES: Please see below. REVIEW OF SYSTEMS: Abdominal pain is well controlled at this time. No fever, chills, chest pain, palpitations, shortness of breath, pleurisy, LE pain, dizziness, diarrhea. The rest of the 10 point ROS was negative. HOME MEDICATIONS: Please see below. PHYSICAL EXAMINATION: VITAL SIGNS: HDS, afebirle, on 2L NC GENERAL APPEARANCE: morbidly obese, NAD HEENT: NCAT, PERRLA, EOMI, MMM, thick neck CARDIOVASCULAR: RRR, no mrg LUNGS: CTAB, prolonged expiratory phase, no crackles ABDOMEN: obese, colostomy in place, normoactive sounds, mild TTP EXTREMITIES: WWP, no edema NEUROLOGICAL: CN3-12 intact, speech clear, moving all extremities PSYCHIATRIC: Aox3 LABORATORY DATA: WBC 6.9 hgb 11.6 platelets 209 na 141 K 4.7 Cr 1.17 IMAGING: CT A/P preop: Acute diverticulitis involving proximal sigmoid with gross pneumoperitoneum and small interloop fluid as well as possible fistulacious communication with adjacent loops of small bowel. MICROBIOLOGY: Please see below. Peritoneal fluid without organism. Negative ASSESSMENT: 64 yo man with morbid obesity, ERIBERTO previously on CPAP but recently unable to tolerate it after radiation for recent throat cancer, COPD, HTN, CAD, HLD, prior smoker, GERD who presented with abdominal pain and was found to have acute diverticulitis with perforation and had a laparoscopic partial sigmoid colon resection and end colostomy and placed on zosyn with medicine now consulted for noted asymptomatic bradycardia and sinus pauses while asleep likely related to ERIBERTO. PLAN: Nocturnal sinus bradycardia and sinus pauses in the setting of morbid obesity with ERIBERTO not compliant with CPAP: -likely 2/2 ERIBERTO but because he cannot tolerate CPAP since radiation, I spoke with Dr. Colin who basically noted that if he is asymptomatic we can monitor until we try to have his [employer] attempt to get im a nasal pillow type of PAP since he is intolerant of the mask. In the meantime may give supplemental O2 to reduce the degree of hypoxemia. -Telemetry -switch out his antihypertensive from atenolol 25 to amlodipine 5mg HTN: -As stated above, switch atenolol to amlodipine Acute diverticulitis c/b perforation: s/p partial sigmoid resection with end colostomy -continue empiric piptazo -On LR per surgical team --> to ask about endpoint given history of CHF -ostomy teaching -continue bowel regimen -pain management per surgical team HLD: -continue lipitor GERD: -continue IV protonix DVT ppx: lovenox Vital Signs Vital Signs Date Time Temp Pulse Resp B/P (MAP) Pulse Ox O2 Delivery O2 Flow Rate FiO2 06/07/20 16:00 97.4 67 22 144/95 (111) 96 Nasal Cannula 2.0 06/06/20 22:30 31 Laboratory Data Labs 24H Laboratory Tests 2 06/07/20 01:58: Bedside Glucose (Misc Panel) 128H 06/07/20 05:12: Immature Granulocyte % (Auto) 1.0, Neutrophils (%) (Auto) 78.7H, Lymphocytes (%) (Auto) 10.3L, Monocytes (%) (Auto) 9.9H, Eosinophils (%) (Auto) 0.0, Basophils (%) (Auto) 0.1, Neutrophils # (Auto) 5.4, Lymphocytes # (Auto) 0.7L, Monocytes # (Auto) 0.7, Eosinophils # (Auto) 0.0, Basophils # (Auto) 0.0, Nucleated Red Blood Cells % (auto) 0.0, Anion Gap 5L, Glomerular Filtration Rate > 60.0, Calcium Level 8.1L CBC/BMP Laboratory Tests 06/07/20 05:12 Microbiology Microbiology 06/06/20 Gram Stain - Final, Resulted 06/06/20 Wound Culture, Resulted Pending 06/06/20 Anaerobic Culture, Resulted Pending Home Medications Scheduled Aspirin (Aspirin EC) 81 Mg Tablet.dr, 81 MG PO DAILY Atenolol (Atenolol) 25 Mg Tab, 25 MG PO DAILY Atorvastatin Calcium (Lipitor) 20 Mg Tab, 20 MG PO QHS Chlorhexidine Gluconate (Chlorhexidine Gluconate) 473 Ml Mouthwash, 15 ML SSP TID Famotidine (Famotidine) 40 Mg Tablet, 40 MG PO DAILY NEW MED, HAS NOT STARTED Scheduled PRN Albuterol Sulfate (Ventolin Hfa) 18 Gm Hfa.aer.ad, 2 PUFFS INH QID PRN for SHORTNESS OF BREATH Clobetasol Propionate (Temovate) 15 Gm Oint...g., 1 DOSE TOP BID PRN for DRY SKIN APPLIES TO HANDS FOR PSORIASIS Oxycodone HCl/Acetaminophen (Oxycodone-Acetaminophen 5-325) 1 Each Tablet, 2 TAB PO Q6H PRN for PAIN Urea (Urea) 85 Gm Cream..g., 1 DOSE EXT DAILY PRN for DRY SKIN USES ON HANDS Allergies Coded Allergies: MARIA DE JESUS Inhibitors (Verified Adverse Reaction, Intermediate, hyperkalemia, 06/06/20) adenosine (Verified Adverse Reaction, Intermediate, cardiac arrest, 06/06/20) angiotensin II acetate, human (Verified Adverse Reaction, Intermediate, hyperkalemia, 06/06/20) losartan (Verified Adverse Reaction, Intermediate, ARBs = HYPERKALEMIA, 06/06/20) morphine (Verified Adverse Reaction, Mild, itching, 06/06/20) A-FIB/CHADSVASC A-FIB History Current/History of A-Fib/PAF?: No Current PO Anticoag Therapy: No Age/Risk Factor Scoring CHADSVASC: CHADSVASC Response (Comments) Value Age Risk Factor Age < 65 years old 0 Gender Risk Factor Male 0 Hx of CHF Yes 1 Hx of HTN Yes 1 Hx of Stroke/TIA/or VTE No 0 Hx of Diabetes No 0 Hx of Vascular Disease No 0 Total 2 Treatment Treatment ordered: NONE Reason Anticoagulant not given: Not indicated/[id number], Recent/upcomin procedure REINIER ESTRADA MD Jun 07, 2020 17:31
[2020-06-07 20:00] VITALS: BP 134/85
[2020-06-07] MEDS: ATORVASTATIN 20 MG TAB PO SCH (20:33)
[2020-06-08] VITALS (8 sets, daily range): BP systolic 124–162; BP diastolic 70–90
[2020-06-08] MEDS: LR 1,000 ML IV SCH (00:30)
[2020-06-08] MEDS: PIPERACILLIN/TAZOBACTAM SOD 3.375 GM in D5W MINI-BAG PLUS 50 ML IV SCH ×5 (04:44→22:33)
[2020-06-08 04:55] LABS: BLOOD UREA NITROGEN 20 MG/DL (7-18); CALCIUM LEVEL 8.1 MG/DL (8.8-10.2); CARBON DIOXIDE LEVEL 33 MEQ/L (21-32); CHLORIDE LEVEL 107 MEQ/L (98-107); CREATININE FOR GFR 1.16 MG/DL (0.70-1.30); GLOMERULAR FILTRATION RATE > 60.0 (>49); GLUCOSE, FASTING 101 MG/DL (70-100); SODIUM LEVEL 142 MEQ/L (136-145)
[2020-06-08] MEDS ORDERED: SLF 3 ML SYR IV PRN (08:45)
[2020-06-08] MEDS: CHLORHEXIDINE GLUCONATE 0.12 % 15ML UDC (PERIDEX ORAL RINSE) SSP SCH ×3 (08:52→20:38)
[2020-06-08] MEDS: amLODIPine 5 MG TAB PO SCH (08:53)
[2020-06-08] MEDS: SENOKOT S TAB PO SCH ×2 (08:53→20:37)
[2020-06-08] MEDS: METAMUCIL (PSYLLIUM) PACKET PO SCH ×2 (08:53→20:37)
[2020-06-08] MEDS: PANTOPRAZOLE 40MG VIAL (C9113 PER 1) IV SCH (08:53)
[2020-06-08] MEDS: FAMOTIDINE 20 MG TAB PO SCH (08:53)
[2020-06-08] MEDS: ENOXAPARIN 40MG/0.4ML SYRINGE (J1650 PER 10MG) SC SCH (08:54)
[2020-06-08] MEDS ORDERED: MOM 30ML SUSPENSION UDC PO ONE (09:00)
[2020-06-08] MEDS: KETOROLAC 30 MG/ML 1ML VIAL IV PRN ×2 (09:22→18:53)
--- NOTE | 2020-06-08 10:46 | IPNPDOC ---
Text Note Date of Service The patient was seen on 06/08/20. NOTE SUBJECTIVE: -Had 7 sec asymptomatic sinus pause while sleeping that resolved on being awakened overnight while on 2L NC -Tolerating clear liquid diet -Otherwise no chest pain, palpitations, SOB PHYSICAL EXAMINATION: VITAL SIGNS: HDS, afebirle, on 2L NC GENERAL APPEARANCE: morbidly obese, NAD HEENT: NCAT, PERRLA, EOMI, MMM, thick neck CARDIOVASCULAR: RRR, no mrg LUNGS: CTAB, prolonged expiratory phase, no crackles ABDOMEN: obese, colostomy in place, normoactive sounds, mild TTP EXTREMITIES: WWP, no edema NEUROLOGICAL: CN3-12 intact, speech clear, moving all extremities PSYCHIATRIC: Aox3 LABORATORY DATA: reviewed. Cr 1.16 IMAGING: CT A/P preop: Acute diverticulitis involving proximal sigmoid with gross pneumoperitoneum and small interloop fluid as well as possible fistulacious communication with adjacent loops of small bowel. MICROBIOLOGY: Please see below. Peritoneal fluid without organism. Negative ASSESSMENT: 64 yo man with morbid obesity, ERIBERTO previously on CPAP but recently unable to tolerate it after radiation for recent throat cancer, COPD, HTN, CAD, HLD, prior smoker, GERD who presented with abdominal pain and was found to have acute diverticulitis with perforation and had a laparoscopic partial sigmoid colon resection and end colostomy and placed on zosyn with medicine now consulted for noted asymptomatic bradycardia and sinus pauses while asleep 2/2 ERIBERTO. PLAN: Nocturnal sinus bradycardia and sinus pauses in the setting of morbid obesity with ERIBERTO not compliant with CPAP: -likely 2/2 ERIBERTO but because he cannot tolerate CPAP since radiation, I spoke with Dr. Colin who basically noted that if he is asymptomatic we can monitor until we try to have his homecare company attempt to get him a nasal pillow type of PAP since he is intolerant of the mask. In the meantime may give supplemental O2 to reduce the degree of hypoxemia. -Telemetry -Switched his antihypertensive from atenolol 25 to amlodipine 5mg starting this morning -consulted Dr. Schmid HTN: -As stated above, switch atenolol to amlodipine Acute diverticulitis c/b perforation: s/p partial sigmoid resection with end colostomy -continue empiric piptazo -On LR per surgical team --> recommending discontinuing now that he is tolerating clears, given history of CHF -ostomy teaching -continue bowel regimen -pain management per surgical team HLD: -continue lipitor GERD: -continue IV protonix DVT ppx: lovenox VS,Fishbone, I+O VS, Fishbone, I+O Laboratory Tests 06/08/20 04:12 Vital Signs Date Time Temp Pulse Resp B/P (MAP) Pulse Ox O2 Delivery O2 Flow Rate FiO2 06/08/20 06:35 97.0 77 20 132/90 (104) 96 Nasal Cannula 3.0 06/06/20 22:30 31 I&O- Last 24 Hours up to 6 AM 06/08/20 06:00 Intake Total 1935 ml Output Total 1893 ml Balance 42 ml REINIER ESTRADA MD Jun 08, 2020 07:55
--- NOTE | 2020-06-08 11:06 | IPNPDOC ---
Text Note Date of Service The patient was seen on 06/08/20. NOTE Patient is on his second postoperative day following laparoscopic partial si gmoid colectomy and end colostomy for a perforated diverticulitis. Overall seems to be doing well. Reports more comfortable now. Still has some episodes of nausea here and there. He is colostomy is not functioning yet. The discomfort over the rectal area that he initially felt yesterday seems to have resolved. At the moment is denying any nausea. On examination Patient is sent in sitting up on his bed, looks a lot more comfortable than he was yesterday. Skin is warm and moist. Short thick neck, jugular venous distention not appreciated Heart rate and rhythm are regular. No murmurs appreciated. Lung sounds are clear to auscultation bilaterally, decreased on basal areas no rales Abdomen is round and quite protuberant, morbidly obese, softly distended and tympanitic to percussion. Still relatively quiet/hypoactive. Left side ostomy, moderately swollen, no output yet. Mild tenderness around the umbilical extraction site, less tender over the left lower quadrant area. SABIHA drainage is mostly pink serous sanguinous. No significant extremity edema Impression and plan: Perforated acute diverticulitis postop day 2 status post laparoscopic partial sigmoid colectomy, colostomy Morbid obesity Sleep apnea Bradycardia nonsymptomatic Patient has some bradycardia mostly when he is sleeping but nontoxic done this morning on an episode of sinus spot, he reports he was just watching TV at that time. He is denying any chest pain, shortness of breath, lightheadedness. Feels a lot better than he was on presentation in the emergency room 2 days ago. I have gotten the hospitalist as well as cardiology involved. His beta harvinder has been discontinued. 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 For now will provide oxygen when he goes to sleep. Other types of CPAP machine that may be amenable for him is not available an inpatient, will need to plug him in to the pulmonary service as an outpatient for this. VS,Fishbone, I+O VS, Fishbone, I+O Laboratory Tests 06/08/20 04:12 Vital Signs Date Time Temp Pulse Resp B/P (MAP) Pulse Ox O2 Delivery O2 Flow Rate FiO2 06/08/20 08:53 74 162/70 06/08/20 08:00 97.4 22 95 Nasal Cannula 3.0 06/06/20 22:30 31 I&O- Last 24 Hours up to 6 AM 06/08/20 06:00 Intake Total 3035 ml Output Total 1893 ml Balance 1142 ml FELA LANGE MD Jun 08, 2020 11:06
[2020-06-08] MEDS: SLF 3 ML SYR IV SCH ×2 (14:32→20:38)
[2020-06-08] MEDS: PERCOCET 5MG/325MG TAB PO PRN ×3 (15:21→22:40)
--- NOTE | 2020-06-08 15:35 | ECGEPIP ---
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
[2020-06-08] MEDS: ASPIRIN 81 MG ENTERIC TAB PO SCH (16:17)
[2020-06-08] MEDS: SIMETHICONE 80 MG CHEW TAB PO PRN (18:57)
[2020-06-08] MEDS: ATORVASTATIN 20 MG TAB PO SCH (20:37)
[2020-06-09] VITALS (7 sets, daily range): BP systolic 142–174; BP diastolic 76–88
[2020-06-09] MEDS ORDERED: amLODIPine 5 MG TAB PO ONE (03:00)
[2020-06-09 05:15] LABS: HEMATOCRIT 35.1 % (42.0-52.0); HEMOGLOBIN 11.1 g/dl (13.5-17.5); MEAN CORPUSCULAR HEMOGLOBIN 30.6 pg (27.0-33.0); MEAN CORPUSCULAR HGB CONC 31.6 g/dl (32.0-36.5); MEAN CORPUSCULAR VOLUME 96.7 fl (80.0-96.0); PLATELET COUNT, AUTOMATED 232 10^3/uL (150-450); RED BLOOD COUNT 3.63 10^6/uL (4.30-6.10); WHITE BLOOD COUNT 4.7 10^3/uL (4.0-10.0)
[2020-06-09 05:33] LABS: BLOOD UREA NITROGEN 19 MG/DL (7-18); CALCIUM LEVEL 8.7 MG/DL (8.8-10.2); CARBON DIOXIDE LEVEL 30 MEQ/L (21-32); CHLORIDE LEVEL 106 MEQ/L (98-107); CREATININE FOR GFR 1.14 MG/DL (0.70-1.30); GLOMERULAR FILTRATION RATE > 60.0 (>49); GLUCOSE, FASTING 99 MG/DL (70-100); POTASSIUM SERUM 3.7 MEQ/L (3.5-5.1); SODIUM LEVEL 139 MEQ/L (136-145)
[2020-06-09] MEDS: PERCOCET 5MG/325MG TAB PO PRN ×3 (05:44→21:10)
[2020-06-09] MEDS: SLF 3 ML SYR IV SCH ×3 (05:44→22:00)
[2020-06-09] MEDS: PIPERACILLIN/TAZOBACTAM SOD 3.375 GM in D5W MINI-BAG PLUS 50 ML IV SCH ×4 (05:44→23:00)
[2020-06-09] MEDS: ENOXAPARIN 40MG/0.4ML SYRINGE (J1650 PER 10MG) SC SCH (08:42)
[2020-06-09] MEDS: ASPIRIN 81 MG ENTERIC TAB PO SCH (08:42)
[2020-06-09] MEDS: SENOKOT S TAB PO SCH ×2 (08:42→21:10)
[2020-06-09] MEDS: FAMOTIDINE 20 MG TAB PO SCH (08:42)
[2020-06-09] MEDS: PANTOPRAZOLE 40MG VIAL (C9113 PER 1) IV SCH (08:42)
[2020-06-09] MEDS: CHLORHEXIDINE GLUCONATE 0.12 % 15ML UDC (PERIDEX ORAL RINSE) SSP SCH ×3 (08:43→21:10)
[2020-06-09] MEDS: amLODIPine 5 MG TAB PO SCH (08:43)
[2020-06-09] MEDS: METAMUCIL (PSYLLIUM) PACKET PO SCH ×2 (08:43→21:10)
[2020-06-09] MEDS: KETOROLAC 30 MG/ML 1ML VIAL IV PRN ×2 (08:46→16:52)
[2020-06-09] MEDS: MIRALAX *UNIT DOSE* 17GM PACKET PO SCH (09:00)
[2020-06-09] MEDS ORDERED: BISACODYL 10 MG SUPP XX ONE (11:00)
--- NOTE | 2020-06-09 13:34 | IPN ---
DATE: 06/09/2020 SUBJECTIVE: Mr. Mishra is feeling a little bit better this morning. He is still not passing any gas or any kind of stools from his colostomy. Other than that, denies any chest pain or significant shortness of breath, and he tells me that he slept reasonably well. Review of telemetry tracing reveals that he had an episode of bradycardia around 11:30 last night. There were very brief episodes of second degree AV block. The pause was not longer than 3 seconds on two separate occasions. Throughout the rest of the night there were no problems. PHYSICAL EXAMINATION: VITAL SIGNS: Blood pressure this morning was recorded at 160/88, heart rate has been in the 70s for the most part. He is afebrile. Saturation 94 to 96% on 3 liters of oxygen. His fluid balance yesterday was recorded as -300 mL, he made about 4300 mL of urine, weight is recorded at 126 kg which is unchanged compared to two days ago. GENERAL: He is alert, oriented and appropriate. NECK: JVP is not high. LUNGS: Reasonably clear. HEART: Muffled heart sounds corresponding to his body habitus but regular rhythm. No gallop, rub or murmur is appreciated. ABDOMEN: Soft, bowel sounds are present. The colostomy appears pink but I do not appreciate any output in his bag. Drain is not draining very much at all. EXTREMITIES: Free of edema. NEUROLOGIC: Intact. LABORATORY DATA: CBC: WBC 4.7, hemoglobin 11.1, hematocrit 35, platelet count 232,000. Basic metabolic panel is unchanged and essentially normal. ASSESSMENT AND PLAN: Mr. Mishra is a 64-year-old man with a history of CAD and several interventions in the past who also has a history of obstructive sleep apnea that has not been treated since his radiation therapy for throat cancer. He says the blowing of the air of the air under pressure is just too painful for him and he cannot tolerate it. He has had several pauses principally at night. I do suspect they are most likely related to sleep apnea. He also has a prominent swelling underneath his mandibula that he says is a consequence of radiation. He follows with EMT in this regard. From my perspective I do not have much contribute. Will continue monitoring him throughout this hospitalization. I put him back on aspirin yesterday but other than that I think we can continue current management without beta blockers on board. He is on a statin and he takes DVT prophylaxis. MTDD
--- NOTE | 2020-06-09 14:20 | CR ---
DATE OF CONSULTATION: 06/08/2020 REFERRING PHYSICIAN: Dr. Falcon. INDICATION: Bradycardia. HISTORY OF PRESENT ILLNESS: Mr. Mishra is known to me. He is a pleasant 64-year-old man who has a multitude of medical problems that include ischemic heart disease, obstructive sleep apnea, hypertension, dyslipidemia, morbid obesity, and recent oropharyngeal cancer treated with radiation (completed six months ago). He was admitted to [facility] because of bowel perforation and required emergency sigmoidectomy and colostomy. The surgery was uneventful, but then in the recovery period he has been noted to have occasional pauses during telemetry monitoring. They were relatively subtle yesterday. He had several pauses around 2 seconds but this morning he had a pause of approximately 7 seconds in duration. It was not completely clear whether he was awake or sleeping during the event. He remembers that he was watching TV and suddenly the room was full of people, they were all alarmed but he says that he probably dozed off even though he is not completely certain. Since that time, he has been fine and has not had any recurrent events. He does complain bitterly about the swelling of his throat. He tells me it has been present since had the radiation therapy, and started approximately two months later, and apparently is consistent with lymphedema. He was seen by ENT and Radiation Oncology and had some form of massages that were temporarily effective but unfortunately the duration of the effect was very short-lived. He had several courses of steroids with improvement but each time when the steroid is tapered down the symptoms return very rapidly. This time he says that he believes that the swelling is getting worse again. PAST MEDICAL HISTORY: 1. Coronary artery disease. He had several interventions, initially presented with NSTEMI in 2016 and received stents to proximal RCA and mid left circumflex with drug-eluting stents, then another heart catheterization was in May 2017 where he had placement of drug-eluting stent to the right coronary artery for in-stent restenosis and eventually last heart catheterization was in December 2018 in which stents in the left circumflex and right coronary artery were patent, but he had a new disease in the RCA and received yet another drug-eluting stent. 2. Obstructive sleep apnea. He was on CPAP until diagnosis of oropharyngeal cancer in 2018. Since that time, he days he cannot tolerate the CPAP because of the air that is being blown through his throat is irritating his throat and is very painful. 3. Morbid obesity. 4. Oropharyngeal cancer as above. 5. Chronic low back pain. 6. GERD. 7. Hypercholesterolemia. 8. Hypertension. 9. Degenerative joint disease. 10. Chronic right bundle branch block. PAST SURGICAL HISTORY: Positive for several back surgeries, tonsillectomy, adenoidectomy, right knee replacement, right hip replacement, TURP, and now laparoscopic partial sigmoid resection with colostomy placement. OUTPATIENT MEDICATIONS: 1. Albuterol as needed. 2. Aspirin 81 mg a day. 3. Atenolol 25 mg a day. 4. Atorvastatin 20 mg a day. 5. Oxycodone with acetaminophen as needed. ALLERGIES: He reports allergies to MARIA DE JESUS inhibitors, adenosine, angiotensin II blockers and Morphine. SOCIAL HISTORY: Patient is and lives with his . He used to smoke until 2019. No significant alcohol use as of late. FAMILY HISTORY: Positive for coronary artery disease. REVIEW OF SYSTEMS: He denies any recent fever, chills, nausea, vomiting or abdominal pain until the current presentation interestingly the night after colonoscopy. There is no recent chest pain, palpitations, syncope or near syncope. He continues to stress the throat swelling and pressure and hurting that has been present for approximately four to five months and for which he has been followed by Dr. Modi. PHYSICAL EXAMINATION: GENERAL: Mr. Mishra is a 64-year-old man who appears approximately his age or a little bit older, morbidly obese. Alert and oriented, appropriate. No distress. VITAL SIGNS: The last set of vital signs reveal blood pressure 149/76, heart rate has been mostly in the 70s, sinus rhythm, afebrile. Saturation 94% on 3 liters of oxygen via nasal cannula. His fluid balance yesterday was positive 2200 but has been about 800 negative today. Weight was recorded yesterday at 126.6 kg. 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 I do not appreciate a carotid bruit. There is a firm sensation to his throat surrounding the thyroid gland. I do not appreciate any distinct mass as such. LUNGS: Clear. Good air movement. HEART: Muffled heart sounds related to his obesity but otherwise regular. I do not appreciate any gallop, rub or murmur. ABDOMEN: He has a colostomy bag. Bowel sounds are still somewhat quiet but are present. I do not appreciate any obvious guarding. EXTREMITIES: Trace edema. Peripheral pulses are palpable. NEUROLOGIC: He is intact. LABORATORY DATA: CBC is normal with the exception of hemoglobin of 11.6 and hematocrit 36.3. Basic metabolic panel has been normal. No ECG performed as of yet. ASSESSMENT: Mr. Mishra is a 64-year-old man who has established coronary artery disease with numerous coronary interventions in a relatively recent past but none for about a year and a half. He presented with a perforated colon and underwent laparoscopic sigmoidectomy with colostomy. He seems to be doing well from a surgical perspective but had several pauses on telemetry. It is likely that it is indeed related to obstructive sleep apnea. I agree with discontinuation of atenolol. I will continue patient on telemetry. If we see consistent recurrent events of a similar kind, he may be a candidate for a pacemaker even though it seems very likely that the principal underlying problem is sleep apnea. He has some degree of lymphedema of his neck which probably compromises the airway and together with his known ERIBERTO causes apneic pauses even though it was not witnessed, it is most likely what this is related to. ENT has been involved in his care. I wonder if this continues to be a serious problem, if tracheostomy would be an option or would be even considered. As far as heart conditions are concerned, besides discontinuation of atenolol, I put the patient back on aspirin. He has multiple drug-eluting stents and consequently at least aspirin should be utilized without any interruptions. I will obtain an EKG even though I do not suspect that there is any ischemic component to his problem. I will follow the patient for at least several more days. I discussed the possible outcomes with the patient. LIZ
[2020-06-09] MEDS: ALBUTEROL 90 MCG/ACT 8GM HFA INHALER INH PRN (18:43)
[2020-06-09] MEDS: ATORVASTATIN 20 MG TAB PO SCH (21:10)
[2020-06-10] VITALS: BP 144/56
[2020-06-10] MEDS: KETOROLAC 30 MG/ML 1ML VIAL IV PRN ×3 (00:30→18:35)
[2020-06-10 04:00] VITALS: BP 162/86
[2020-06-10] MEDS: PIPERACILLIN/TAZOBACTAM SOD 3.375 GM in D5W MINI-BAG PLUS 50 ML IV SCH ×4 (04:54→22:09)
[2020-06-10] MEDS: SLF 3 ML SYR IV SCH ×3 (04:54→22:09)
[2020-06-10 05:14] LABS: HEMATOCRIT 35.7 % (42.0-52.0); HEMOGLOBIN 11.4 g/dl (13.5-17.5); MEAN CORPUSCULAR HEMOGLOBIN 30.7 pg (27.0-33.0); MEAN CORPUSCULAR HGB CONC 31.9 g/dl (32.0-36.5); MEAN CORPUSCULAR VOLUME 96.2 fl (80.0-96.0); PLATELET COUNT, AUTOMATED 236 10^3/uL (150-450); RED BLOOD COUNT 3.71 10^6/uL (4.30-6.10); WHITE BLOOD COUNT 5.3 10^3/uL (4.0-10.0)
[2020-06-10 05:28] LABS: BLOOD UREA NITROGEN 14 MG/DL (7-18); CALCIUM LEVEL 8.3 MG/DL (8.8-10.2); CARBON DIOXIDE LEVEL 31 MEQ/L (21-32); CHLORIDE LEVEL 104 MEQ/L (98-107); CREATININE FOR GFR 1.14 MG/DL (0.70-1.30); GLOMERULAR FILTRATION RATE > 60.0 (>49); GLUCOSE, FASTING 99 MG/DL (70-100); POTASSIUM SERUM 3.7 MEQ/L (3.5-5.1); SODIUM LEVEL 142 MEQ/L (136-145)
[2020-06-10] MEDS: PERCOCET 5MG/325MG TAB PO PRN ×3 (05:57→18:35)
[2020-06-10 07:35] VITALS: BP 157/91
--- NOTE | 2020-06-10 09:25 | IPNPDOC ---
Text Note Date of Service The patient was seen on 06/10/20. NOTE Patient is on his fourth postoperative day following laparoscopic partial si gmoid colectomy and end colostomy for a perforated diverticulitis. He still has no output from his ostomy save for a small amount of air. On examination Patient is sent in sitting up on his bed, looks a lot more comfortable than he was yesterday. Skin is warm and moist. Short thick neck, jugular venous distention not appreciated Heart rate and rhythm are regular. No murmurs appreciated. Lung sounds are clear to auscultation bilaterally, decreased on basal areas no rales Abdomen is round and quite protuberant, morbidly obese, softly distended and tympanitic to percussion. Still relatively quiet/hypoactive. Left side ostomy, moderately swollen, no output yet. Mild tenderness around the umbilical extraction site, less tender over the left lower quadrant area. SABIHA drainage is mostly pink serous sanguinous. No significant extremity edema Impression and plan: Perforated acute diverticulitis postop day 2 status post laparoscopic partial sigmoid colectomy, colostomy Morbid obesity Sleep apnea Bradycardia nonsymptomatic Patient has some bradycardia mostly when he is sleeping but nontoxic done this morning on an episode of sinus spot, he reports he was just watching TV at that time. He is denying any chest pain, shortness of breath, lightheadedness. Feels a lot better than he was on presentation in the emergency room 2 days ago. I have gotten the hospitalist as well as cardiology involved. His beta harvinder has been discontinued. 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 For now will provide oxygen when he goes to sleep. Other types of CPAP machine that may be amenable for him is not available an inpatient, will need to plug him in to the pulmonary service as an outpatient for this. VS,Fishbone, I+O VS, Fishbone, I+O Laboratory Tests 06/10/20 04:43 Vital Signs Date Time Temp Pulse Resp B/P (MAP) Pulse Ox O2 Delivery O2 Flow Rate FiO2 06/10/20 07:35 97.5 79 18 157/91 (113) 94 Nasal Cannula 3.0 06/10/20 05:57 31 I&O- Last 24 Hours up to 6 AM 06/10/20 05:59 Intake Total 840 ml Output Total 2420 ml Balance -1580 ml FELA LANGE MD Jun 10, 2020 09:25
[2020-06-10] MEDS: FAMOTIDINE 20 MG TAB PO SCH (09:28)
[2020-06-10] MEDS: PANTOPRAZOLE 40MG VIAL (C9113 PER 1) IV SCH (09:28)
[2020-06-10] MEDS: CHLORHEXIDINE GLUCONATE 0.12 % 15ML UDC (PERIDEX ORAL RINSE) SSP SCH ×3 (09:29→22:09)
[2020-06-10] MEDS: amLODIPine 5 MG TAB PO SCH (09:29)
[2020-06-10] MEDS: ASPIRIN 81 MG ENTERIC TAB PO SCH (09:29)
[2020-06-10] MEDS: MIRALAX *UNIT DOSE* 17GM PACKET PO SCH (09:29)
[2020-06-10] MEDS: ENOXAPARIN 40MG/0.4ML SYRINGE (J1650 PER 10MG) SC SCH (09:29)
[2020-06-10] MEDS: SENOKOT S TAB PO SCH ×2 (09:29→22:09)
[2020-06-10] MEDS: METAMUCIL (PSYLLIUM) PACKET PO SCH ×2 (09:29→22:09)
--- NOTE | 2020-06-10 09:35 | REPVR ---
PROCEDURE INFORMATION: Exam: XR Complete Acute Abdomen Series Exam date and time: 06/10/2020 9:07 AM Age: 64 years old Clinical indication: Condition or disease; Other: Perforated diverticulitis; Prior surgery; Surgery date: 3-7 days post-operative; Additional info: Abdominal distention TECHNIQUE: Imaging protocol: XR complete acute abdomen series, including 2 or more views of the abdomen and a single view chest. COMPARISON: CR Chest, 1 view 04/08/2020 11:16 AM (report not provided) FINDINGS: Tubes, catheters and devices: A surgical drain overlies the pelvis, and there appears to be a left lower quadrant ostomy. There are bilateral hip prostheses. Lungs: There is mild atelectasis at the left base. The lungs are otherwise clear. Pleural space: Normal. No pneumothorax. Heart/Mediastinum: The cardiomediastinal silhouette is fairly stable in appearance. Gastrointestinal tract: There is mild gaseous distention of a few scattered small bowel loops. Air and stool are present within large bowel. Intraperitoneal space: No free air is evident. Bones/joints: Degenerative changes involve the spine. Soft tissues: Skin keith overlie the pelvis. IMPRESSION: 1. No evidence for acute pulmonary disease. 2. Postoperative changes of the abdomen with mild distention of a few scattered small bowel loops, could reflect postoperative ileus. Electronically signed by: Cedric Anaya On 06/10/2020 09:35:46 AM
[2020-06-10] MEDS ORDERED: MAGNESIUM CITRATE 300 ML BTL PO ONE (10:15)
[2020-06-10] MEDS ORDERED: BISACODYL 10 MG SUPP PR ONE (10:15)
[2020-06-10] MEDS: ALBUTEROL 90 MCG/ACT 8GM HFA INHALER INH PRN (11:11)
--- NOTE | 2020-06-10 11:23 | IPN ---
DATE: 06/10/2020 SUBJECTIVE: Mr. Mishra is not overly happy today. He has started to have significant abdominal discomfort and he is still not passing any stools or gas in his colostomy. Unfortunately, he is basically spending all day in bed, which I do not think is helping. He denies any chest pain. He denies any shortness of breath. He still complains about a fullness in his throat and swelling under his mandible. No change from yesterday in that regard. Telemetry monitoring reveals principally a sinus rhythm. He still has two pauses last might around 3 a.m. a little over 3 seconds and no other abnormalities. OBJECTIVE: VITAL SIGNS: Blood pressure 157/91, heart rate from 60s to 70s faster when he moves. Saturation 94% on 3 liters of oxygen. Fluid balance yesterday was recorded as negative 1600. Weight is 123.9 kg, which is similar to reported weight on admission. GENERAL: He is alert, oriented, and appropriate. 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 LUNGS: Clear. Fair air movement. HEART: Reveals very muffled heart sounds corresponding to his body habitus. I do not appreciate any gallop, rub, or murmur though. ABDOMEN: Soft. Slightly tender throughout. Bowel sounds are present. The colostomy looks pink. EXTREMITIES: Free of edema. LABORATORY DATA: CBC with WBC count 5.3, hemoglobin 11.4, hematocrit 35.7, platelet count 236,000. Basic metabolic panel is normal. ASSESSMENT AND PLAN: Mr. Mishra is a 64-year-old man who presented with perforated colon and underwent sigmoidectomy and colostomy placement. In the postoperative period, he had pauses during sleep and the longest was over 7 seconds. We stopped Atenolol; he was only on a very small dose anyhow. Also with time, it looks like the pauses are getting less long but unfortunately, are still present very likely related to obstructive sleep apnea (ERIBERTO) that is currently untreated because he has not been able to tolerate CPAP since the treatment for throat cancer. We will continue observation as long as he stays in the hospital. I do not foresee that this will become a serious problem. I encouraged the patient, and I talked to his nursing staff to ambulate during the day as it should help to move his bowels and is also good for prevention of deep vein thrombosis (DVT) and other complications including pneumonia. Otherwise, I do not have much else to contribute to his management. LIZ
[2020-06-10 12:00] VITALS: BP 132/92
[2020-06-10 16:00] VITALS: BP 154/78
--- NOTE | 2020-06-10 17:34 | IPNPDOC ---
Date Seen The patient was seen on 06/10/20. Progress Note SUBJECTIVE: Per cardiology, pauses patient is having on telemetry could be secondary to obstructive sleep apnea vs atenolol vs airway compromise secondary to lymphedema of the neck. Recommending ENT follow-up, discussed with surgery who will be talking about case with them on 06/11/2020. The patient has ileus and will be ordered PT/OT today. Little in SABIHA drain. Denies increased SOB, chest pain, n/v. PHYSICAL EXAMINATION: VITAL SIGNS: Please see below GENERAL APPEARANCE: morbidly obese, NAD HEENT: NCAT, PERRLA, EOMI, MMM, thick neck CARDIOVASCULAR: RRR, no mrg LUNGS: CTAB, prolonged expiratory phase, no crackles ABDOMEN: obese, colostomy in place, normoactive sounds, SABIHA drain in place in RUQ EXTREMITIES: WWP, no edema NEUROLOGICAL: CN3-12 intact, speech clear, moving all extremities, AAOx 3 PSYCHIATRIC: Mood and affect appropriate LABORATORY DATA: Please see below IMAGING: Abd XR: Postoperative changes of the abdomen with mild distention of a few scattered small bowel loops, could reflect postoperative ileus. MICROBIOLOGY: Please see below. Peritoneal fluid without organism. Negative PATHOLOGY: Sigmoid colon, segmental resection for perforated diverticulitis: Diverticulosis and diverticulitis. Perforated diverticulum is noted extending into pericolonic fat with abscess formation and overlying marked acute serositis. ASSESSMENT: 64 y/o man with morbid obesity, ERIBERTO previously on CPAP but recently unable to tolerate it after radiation for recent throat cancer, COPD, HTN, CAD, HLD, prior smoker, GERD who presented with abdominal pain and was found to have acute diverticulitis with perforation and had a laparoscopic partial sigmoid colon resection and end colostomy.Placed on zosyn, we are consulted for noted asymptomatic bradycardia and sinus pauses while asleep 2/2 ERIBERTO. PLAN: Post-operative ileus s/p partial sigmoid resection with end colostomy -Abd XR above -soft abd, hypoactive BS -No formed stool in colostomy -Encourage ambulation -PT/OT ordered, bowel regimen, soft diet -Surgery primary Nocturnal sinus bradycardia and sinus pauses. Poss 2/2 to apnea multifactorial to ERIBERTO and lymphedema of neck. Noncompliance/intolerance of CPAP since radiation in past -Tele noted several pauses overnight. -Dr. Falcon to discuss with ENT about possible treatment options -Dr. Bhatt spoke with Dr. Colin who noted that if he is asymptomatic we can mo nitor until we try to have his home care company attempt to get him a nasal pillow type of PAP since he is intolerant of the mask. In the meantime may give supplemental O2 to reduce the degree of hypoxemia. -D/deidre atenolol 25, started amlodipine 5mg which he has been tolerating -Dr. Schmid was consulted and has seen. -C/w telemetry Acute diverticulitis c/b perforation: s/p partial sigmoid resection with end colostomy -Tolerating soft diet -ostomy teaching -continue bowel regimen -pain management per surgical team -C/w zosyn HTN: -Stable -C/w amlodipine HLD: -continue lipitor GERD: -continue IV protonix DVT ppx: lovenox DISPOSITION: Surgery team primary, gladly following. Dr. Falcon to touch base with ENT 06/11/20. PT/OT VS, I&O, 24H, Fishbone Vital Signs/I&O Vital Signs Date Time Temp Pulse Resp B/P (MAP) Pulse Ox O2 Delivery O2 Flow Rate FiO2 06/10/20 16:00 98.0 92 18 154/78 (103) 95 Nasal Cannula 3.0 06/10/20 05:57 31 I&O- Last 24 Hours up to 6 AM 06/10/20 06:00 Intake Total 840 ml Output Total 2270 ml Balance -1430 ml Laboratory Data 24H LABS Laboratory Tests 2 06/10/20 04:43: Nucleated Red Blood Cells % (auto) 0.0, Anion Gap 7L, Glomerular Filtration Rate > 60.0, Calcium Level 8.3L CBC/BMP Laboratory Tests 06/10/20 04:43 Microbiology Microbiology 06/06/20 Gram Stain - Final, Resulted 06/06/20 Wound Culture - Final, Resulted E.coli Esbl 06/06/20 Anaerobic Culture, Resulted Pending Current Medications Current Medications Medications (Trade) Dose Ordered Sig/Jose Route PRN Reason Start Time Stop Time Status Last Admin Dose Admin Acetaminophen (Tylenol Tab) 650 mg Q4HP PRN PO MILD PAIN or TEMP > 101 06/06/20 16:45 Albuterol Sulfate (Proventil, Ventolin Hfa) 2 puff RQID PRN INH SHORTNESS OF BREATH 06/06/20 16:45 06/10/20 11:11 Amlodipine Besylate (Norvasc) 5 mg DAILY PO 06/08/20 09:00 06/10/20 09:29 Aspirin (Ecotrin) 81 mg DAILY PO 06/08/20 09:00 06/10/20 09:29 Atenolol (Tenormin) 25 mg DAILY PO 06/07/20 09:00 06/07/20 17:23 DC 06/07/20 08:42 Atorvastatin Calcium (Lipitor) 20 mg QHS PO 06/06/20 21:00 06/09/20 21:10 Chlorhexidine Gluconate (Peridex Oral Rinse) 15 ml TID SSP 06/06/20 16:00 06/10/20 16:33 Clobetasol Propionate (Temovate 0.05%) APPLIED TO HANDS FOR PSORIASIS BID PRN TOP DRY SKIN 06/06/20 21:00 Diphenhydramine HCl (Benadryl) 25 mg Q6HP PRN PO ITCHING 06/06/20 16:45 Enoxaparin Sodium (Lovenox) 40 mg DAILY SC 06/07/20 09:00 06/10/20 09:29 Famotidine (Pepcid) 40 mg DAILY PO 06/07/20 09:00 06/10/20 09:28 Fentanyl Citrate (Sublimaze) 25 mcg Q5MP PRN IV PAIN LEVEL 5-10 06/06/20 17:15 06/06/20 18:15 DC Home Med (Med Rec Complete!) ASDIRECTED XX 06/06/20 10:15 06/06/20 10:13 DC Hydromorphone HCl (Dilaudid) 0.4 mg Q5MP PRN IV PAIN LEVEL 4-7 06/06/20 17:15 06/06/20 18:15 DC 06/06/20 16:50 Ketorolac Tromethamine (ToRADol) 15 mg Q6HP PRN IV MILD/MODERATE PAIN (PS 1-7) 06/06/20 16:45 06/11/20 16:44 06/10/20 09:30 Lactated Ringer's 1,000 ml @ 100 mls/hr Q10H IV 06/06/20 16:32 06/08/20 08:43 DC 06/08/20 00:30 Lactated Ringer's 1,000 ml @ 100 mls/hr Q10H IV 06/06/20 17:15 06/06/20 18:15 DC Miscellaneous (Unresolved Clarification Entry) SEE LABEL COMMENTS DAILY XX 06/10/20 09:00 Morphine Sulfate (Morphine Sulfate Inj) 4 mg Q4H PRN IV SEVERE PAIN (PS 8-10) 06/06/20 16:45 Ondansetron HCl (ZOFRAN INJection) 4 mg Q4HP PRN IV NAUSEA OR VOMITING 06/06/20 17:15 06/06/20 18:15 DC 06/06/20 16:50 Ondansetron HCl (ZOFRAN INJection) 4 mg Q6HP PRN IV NAUSEA OR VOMITING 06/06/20 16:45 Oxycodone HCl (Roxicodone, Oxyir) 5 mg ASDIRECTED PRN PO PAIN LEVEL 1-4 06/06/20 17:15 06/06/20 18:15 DC 06/06/20 17:16 Oxycodone/ Acetaminophen (Percocet 5mg/ 325mg Tablet) 1 tab Q4H PRN PO MILD/MODERATE PAIN (PS 1-7) 06/06/20 16:45 Oxycodone/ Acetaminophen (Percocet 5mg/ 325mg Tablet) 2 tab Q6H PRN PO SEVERE PAIN (PS 8-10) 06/06/20 16:45 06/10/20 12:27 Pantoprazole Sodium (Protonix) 40 mg DAILY IV 06/07/20 09:00 06/10/20 09:28 Piperacillin Sod/ Tazobactam Sod 3.375 gm/Dextrose 50 ml @ 50 mls/hr Q6H IV 06/06/20 17:00 06/10/20 16:33 Polyethylene Glycol (Miralax) 1 pkt DAILY PO 06/09/20 09:00 06/10/20 09:29 Psyllium Hydrophilic Mucilloid (Metamucil) 1 pkt BID PO 06/07/20 09:00 06/10/20 09:29 Senna/Docusate Sodium (Senokot S) 1 tab BID PO 06/06/20 21:00 06/10/20 09:29 Simethicone (Mylicon) 80 mg QIDP PRN PO BLOATING 06/07/20 08:30 06/08/20 18:57 Sodium Chloride 1,000 ml @ 150 mls/hr Q6H40M IV 06/06/20 09:15 06/06/20 16:49 DC 06/06/20 09:24 Sodium Chloride (Saline Lock Flush) 2 ml ASDIRECTED PRN IV SEE LABEL COMMENTS 06/08/20 08:45 Sodium Chloride (Saline Lock Flush) 2 ml SLF IV 06/08/20 14:00 06/10/20 13:05 Allergies Coded Allergies: MARIA DE JESUS Inhibitors (Verified Adverse Reaction, Intermediate, hyperkalemia, 06/06/20) adenosine (Verified Adverse Reaction, Intermediate, cardiac arrest, 06/06/20) angiotensin II acetate, human (Verified Adverse Reaction, Intermediate, hyperkalemia, 06/06/20) losartan (Verified Adverse Reaction, Intermediate, ARBs = HYPERKALEMIA, 06/06/20) morphine (Verified Adverse Reaction, Mild, itching, 06/06/20) Aniya Fuentes MD Jun 10, 2020 17:34
[2020-06-10 20:00] VITALS: BP 172/98
[2020-06-10] MEDS: ATORVASTATIN 20 MG TAB PO SCH (22:09)
[2020-06-11] VITALS (7 sets, daily range): BP systolic 110–200; BP diastolic 78–110
[2020-06-11] MEDS: PERCOCET 5MG/325MG TAB PO PRN ×3 (00:09→18:52)
[2020-06-11] MEDS: KETOROLAC 30 MG/ML 1ML VIAL IV PRN ×2 (00:09→08:33)
[2020-06-11] MEDS: PIPERACILLIN/TAZOBACTAM SOD 3.375 GM in D5W MINI-BAG PLUS 50 ML IV SCH ×4 (04:34→22:18)
[2020-06-11] MEDS: SLF 3 ML SYR IV SCH ×3 (04:34→21:23)
[2020-06-11 05:26] LABS: HEMATOCRIT 35.6 % (42.0-52.0); HEMOGLOBIN 11.8 g/dl (13.5-17.5); MEAN CORPUSCULAR HEMOGLOBIN 31.8 pg (27.0-33.0); MEAN CORPUSCULAR HGB CONC 33.1 g/dl (32.0-36.5); PLATELET COUNT, AUTOMATED 228 10^3/uL (150-450); RED BLOOD COUNT 3.71 10^6/uL (4.30-6.10); WHITE BLOOD COUNT 8.2 10^3/uL (4.0-10.0)
[2020-06-11 05:47] LABS: ALBUMIN 2.3 GM/DL (3.2-5.2); ALT/SGPT 29 U/L (12-78); BILIRUBIN,TOTAL 0.7 MG/DL (0.2-1.0); BLOOD UREA NITROGEN 15 MG/DL (7-18); CALCIUM LEVEL 8.9 MG/DL (8.8-10.2); CARBON DIOXIDE LEVEL 32 MEQ/L (21-32); CHLORIDE LEVEL 104 MEQ/L (98-107); CREATININE FOR GFR 1.11 MG/DL (0.70-1.30); GLOMERULAR FILTRATION RATE > 60.0 (>49); GLUCOSE, FASTING 114 MG/DL (70-100); POTASSIUM SERUM 3.5 MEQ/L (3.5-5.1); SODIUM LEVEL 138 MEQ/L (136-145); TOTAL PROTEIN 6.7 GM/DL (6.4-8.2)
[2020-06-11] MEDS: MIRALAX *UNIT DOSE* 17GM PACKET PO SCH (08:31)
[2020-06-11] MEDS: ASPIRIN 81 MG ENTERIC TAB PO SCH (08:31)
[2020-06-11] MEDS: FAMOTIDINE 20 MG TAB PO SCH (08:31)
[2020-06-11] MEDS: SENOKOT S TAB PO SCH ×2 (08:31→21:23)
[2020-06-11] MEDS: CHLORHEXIDINE GLUCONATE 0.12 % 15ML UDC (PERIDEX ORAL RINSE) SSP SCH ×4 (08:31→21:23)
[2020-06-11] MEDS: ENOXAPARIN 40MG/0.4ML SYRINGE (J1650 PER 10MG) SC SCH (08:31)
[2020-06-11] MEDS: amLODIPine 5 MG TAB PO SCH (08:31)
[2020-06-11] MEDS: METAMUCIL (PSYLLIUM) PACKET PO SCH ×2 (08:31→21:23)
[2020-06-11] MEDS: PANTOPRAZOLE 40MG VIAL (C9113 PER 1) IV SCH (08:32)
--- NOTE | 2020-06-11 12:52 | IPN ---
DATE: 06/11/2020 SUBJECTIVE: Mr. Mishra is not feeling well this morning. When I entered the room he told me that about an hour ago he started developing chills and tremors. He also complains about abdominal pain. Dyspnea is unchanged and is minimal. Denies any chest discomfort. Review of telemetry tracing from night reveals that he again had two pauses but they were only slightly more than 3 seconds. For most of the night he actually was quite tachycardic with a heart rate of about 110 beats per minute. PHYSICAL EXAMINATION: VITAL SIGNS: This morning blood pressure last recorded was 154/78, heart rate in the 90s and 100s. He has been afebrile including the episode of his recent chills and saturation is 97% on 3 liters of oxygen. Weight was recorded as 125.3 kg. GENERAL: He is alert, oriented and appropriate. HEAD AND NECK: His JVP is difficult to assess due to his body habitus. LUNGS: Reasonably clear. HEART: Regular tachycardia, muffled heart sounds. I am unable to appreciate any gallop or murmur though. ABDOMEN: Diffusely tender. There is no britany guarding. Bowel sounds are present. Colostomy bag is full of normal looking stool. EXTREMITIES: Free of edema. NEUROLOGIC: Besides his shivering he looks normal. LABORATORY DATA: Basic metabolic panel is normal and CBC reveals WBC count of 8.2, hemoglobin 11.9, hematocrit 35.6 and platelet count 228,000. ASSESSMENT AND PLAN: Mr. Mishra in a 64-year-old man with a history of CAD and several stents in the relatively distant past who presented with perforated colon, underwent sigmoidectomy and colostomy placement. The uneventful postoperative course from a surgical perspective unfortunately is somewhat complicated by him developing chills this morning. I think it is very suspicious that he is harboring some infection in spite of being on antibiotics. In my opinion, most likely abdominal source considering his abdominal pain but Dr. Falcon was already contacted by the nursing staff and will evaluate the patient. From my perspective, there is not much to contribute. He has nocturnal pauses that are no longer very prominent and I do not believe that any further intervention in this regard will be necessary. It is almost certainly related to ERIBERTO. MTDD
[2020-06-11] MEDS: ATORVASTATIN 20 MG TAB PO SCH (21:23)
[2020-06-12] VITALS: BP_SYST 142; BP_SYST 152; BP_DIAS 78; BP_DIAS 80
[2020-06-12] MEDS: PERCOCET 5MG/325MG TAB PO PRN ×3 (02:50→16:06)
[2020-06-12 04:00] VITALS: BP 106/62
[2020-06-12] MEDS: PIPERACILLIN/TAZOBACTAM SOD 3.375 GM in D5W MINI-BAG PLUS 50 ML IV SCH ×4 (04:23→20:59)
[2020-06-12] MEDS: SLF 3 ML SYR IV SCH ×3 (05:21→20:59)
[2020-06-12 05:40] LABS: HEMATOCRIT 34.4 % (42.0-52.0); MEAN CORPUSCULAR HEMOGLOBIN 30.7 pg (27.0-33.0); MEAN CORPUSCULAR VOLUME 96.1 fl (80.0-96.0); PLATELET COUNT, AUTOMATED 236 10^3/uL (150-450); RED BLOOD COUNT 3.58 10^6/uL (4.30-6.10); WHITE BLOOD COUNT 8.9 10^3/uL (4.0-10.0)
[2020-06-12 05:58] LABS: ALBUMIN 2.4 GM/DL (3.2-5.2); BILIRUBIN,TOTAL 0.7 MG/DL (0.2-1.0); CALCIUM LEVEL 8.3 MG/DL (8.8-10.2); CREATININE FOR GFR 1.33 MG/DL (0.70-1.30); GLOMERULAR FILTRATION RATE 57.8 (>49); POTASSIUM SERUM 3.7 MEQ/L (3.5-5.1); TOTAL PROTEIN 5.9 GM/DL (6.4-8.2)
[2020-06-12] MEDS: ASPIRIN 81 MG ENTERIC TAB PO SCH (07:49)
[2020-06-12] MEDS: PANTOPRAZOLE 40MG VIAL (C9113 PER 1) IV SCH (07:49)
[2020-06-12] MEDS: FAMOTIDINE 20 MG TAB PO SCH (07:51)
[2020-06-12] MEDS: SENOKOT S TAB PO SCH ×2 (07:51→20:58)
[2020-06-12] MEDS: amLODIPine 5 MG TAB PO SCH (07:53)
[2020-06-12] MEDS: MIRALAX *UNIT DOSE* 17GM PACKET PO SCH (07:54)
[2020-06-12] MEDS: ENOXAPARIN 40MG/0.4ML SYRINGE (J1650 PER 10MG) SC SCH (07:54)
[2020-06-12] MEDS: CHLORHEXIDINE GLUCONATE 0.12 % 15ML UDC (PERIDEX ORAL RINSE) SSP SCH ×3 (07:54→20:59)
[2020-06-12] MEDS: METAMUCIL (PSYLLIUM) PACKET PO SCH ×2 (07:54→09:55)
[2020-06-12 08:00] VITALS: BP 115/82
--- NOTE | 2020-06-12 09:12 | IPNPDOC ---
Text Note Date of Service The patient was seen on 06/12/20. NOTE POD6 Laparoscopic partial sigmoid colectomy with colostomy for perforated di verticulitis pathology consistent with perforated diverticulitis He has started moving stuff from his colostomy yesterday but still complains of crampy abdominal pain which he thinks is related to the miralax and metamucil. Now that he is moving his bowels, will stop the miralax and just place him on once a day metamucil He had chills yesterday which never came back and did not have any fever sub sequently. No leukocytosis. abdomen looks a lot less distended, benign in appearance. If with further chills or leukocytosis would consider CT of the abdomen and pelvis Need to get familiar with ostomy care, patient right now unsure if he can do this himself. probably will hold off discharge to next week to be able to train him/get him comfortable with caring for his ostomy He is off monitor x 24 hrs, will move him to regular floor Needs to work with PT DVT prophylaxis VS,Ophelia, I+O VSOphelia, I+O Laboratory Tests 06/12/20 05:22 Vital Signs Date Time Temp Pulse Resp B/P (MAP) Pulse Ox O2 Delivery O2 Flow Rate FiO2 06/12/20 08:09 20 06/12/20 08:00 97.4 100 115/82 (93) 97 Nasal Cannula 2.0 06/11/20 00:39 31 I&O- Last 24 Hours up to 6 AM 06/12/20 06:00 Intake Total 1270 ml Output Total 2190 ml Balance -920 ml FELA LANGE MD Jun 12, 2020 09:11
[2020-06-12] MEDS: GASTROGRAFIN SOLUTION 30ML PO SCH ×2 (09:54→10:37)
[2020-06-12] MEDS: CelecoXIB (CeleBREX) 100 MG CAP PO SCH ×2 (09:54→20:58)
[2020-06-12] MEDS ORDERED: ISOVUE-370 76% 100ML VIAL As Ordered ONE (11:15)
[2020-06-12 12:00] VITALS: BP 144/86
--- NOTE | 2020-06-12 12:17 | REPVR ---
PROCEDURE INFORMATION: Exam: CT Abdomen And Pelvis With Contrast Exam date and time: 06/12/2020 11:31 AM Age: 64 years old Clinical indication: Other: Ffup perforated diverticulitis TECHNIQUE: Imaging protocol: Computed tomography of the abdomen and pelvis with intravenous contrast. Radiation optimization: All CT scans at this facility use at least one of these dose optimization techniques: automated exposure control; mA and/or kV adjustment per patient size (includes targeted exams where dose is matched to clinical indication); or iterative reconstruction. Contrast material: ISOVUE 370; Contrast volume: 100 ml; Contrast route: INTRAVENOUS (IV); COMPARISON: CT ABD/PEL W/IV CONTRAST ONLY 06/06/2020 7:58 AM FINDINGS: Limitations: Examination is slightly limited by motion artifact. Lungs: Minimal atelectasis in the lung bases. Liver: Normal. No mass. Gallbladder and bile ducts: Normal. No calcified stones. No ductal dilation. Pancreas: Normal. No ductal dilation. Spleen: Mild splenomegaly, with the spleen measuring 15.7 cm in length. Adrenals: Normal. No mass. Kidneys and ureters: Bilateral renal cortical scarring. Simple right renal cortical cysts, measuring up to 2.2 cm. Simple 1.3 cm left renal cortical cyst. Subcentimeter bilateral renal cortical hypodensities are too small to definitively characterize, but most likely represent cysts. No hydronephrosis. Stomach and bowel: Status post interval partial colectomy. Oversewn rectosigmoid pouch. Left upper quadrant colostomy. Colonic diverticulosis. No evidence of acute diverticulitis. No bowel obstruction. Appendix: No evidence of appendicitis. Intraperitoneal space: Trace free intraperitoneal air, likely postsurgical. Trace ascites. No abscess within the abdomen/pelvis. Vasculature: Moderate atherosclerotic changes. Coronary artery calcifications. Lymph nodes: Unremarkable. No enlarged lymph nodes. Urinary bladder: Unremarkable as visualized. Reproductive: Unremarkable as visualized. Bones/joints: Degenerative change of the spine. Bilateral hip arthroplasties. Soft tissues: Tiny fat containing indirect left inguinal hernia. Postsurgical change of the ventral abdominal wall. Several skin keith. Bilateral gluteus minimus and medius muscle atrophy. Tiny fat containing indirect left hernia. IMPRESSION: 1. Status post interval partial colectomy, with no complicating findings. 2. Trace pneumoperitoneum and trace ascites. 3. Mild splenomegaly. 4. Colonic diverticulosis. COMMENTS: Consistent with the [employer]'s Incidental Findings Committee white paper (J [employer] Mable Radiol 2018): Any incidental renal lesion less than 1 cm or classified as too small to characterize, or any incidental cystic renal lesion characterized as simple-appearing, is likely benign. No follow-up imaging is recommended for these lesions per consensus recommendations based on imaging criteria. Electronically signed by: Samanta Hanley On 06/12/2020 12:17:09 PM
--- NOTE | 2020-06-12 14:54 | IPNPDOC ---
Date Seen The patient was seen on 06/12/20. Progress Note SUBJECTIVE: Per cardiology, pauses have slowed down, tele stopped. Ileus resolved. participating with PT and continuing with colostomy training. Possible SABIHA drain removal in next 48 hours. Denies increased SOB, chest pain, n/v. PHYSICAL EXAMINATION: VITAL SIGNS: Please see below GENERAL APPEARANCE: morbidly obese, NAD HEENT: NCAT, PERRLA, EOMI, MMM, thick neck with b/l cervical swelling-chronic CARDIOVASCULAR: RRR, no mrg LUNGS: CTAB, prolonged expiratory phase, no crackles ABDOMEN: obese, colostomy in place, normoactive sounds, SABIHA drain in place in RUQ with 25 mL of serosanguinous fluid EXTREMITIES: WWP, no edema NEUROLOGICAL: CN3-12 intact, speech clear, moving all extremities, AAOx 3 PSYCHIATRIC: Mood and affect appropriate LABORATORY DATA: Please see below IMAGING: CT abdpelvis: pending Abd XR: Postoperative changes of the abdomen with mild distention of a few scattered small bowel loops, could reflect postoperative ileus. MICROBIOLOGY: Please see below. Peritoneal fluid without organism. Negative PATHOLOGY: Sigmoid colon, segmental resection for perforated diverticulitis: Diverticulosis and diverticulitis. Perforated diverticulum is noted extending into pericolonic fat with abscess formation and overlying marked acute serositis. ASSESSMENT: 64 y/o man with morbid obesity, ERIBERTO previously on CPAP but recently unable to tolerate it after radiation for recent throat cancer, COPD, HTN, CAD, HLD, prior smoker, GERD who presented with abdominal pain and was found to have acute diverticulitis with perforation and had a laparoscopic partial sigmoid colon resection and end colostomy.Placed on zosyn, we are consulted for noted asymptomatic bradycardia and sinus pauses while asleep 2/2 ERIBERTO. PLAN: Post-operative ileus- resolved. S/p partial sigmoid resection with end colostomy POD 6. -Abd XR above, CT abd/pelvis pending -soft abd, hypoactive BS -Formed stool in colostomy -Ambulating well, colostomy training occuring -PT/OT ordered, bowel regimen, tolerating diet -Surgery primary Nocturnal sinus bradycardia and sinus pauses. Poss 2/2 to apnea multifactorial to ERIBERTO and lymphedema of neck. Noncompliance/intolerance of CPAP since radiation in past -Pauses decreased -Dr. Falcon to discuss with ENT about possible treatment options -D/deidre atenolol 25, tolerating amlodipine 5mg -Dr. Schmid was consulted and has seen. At this time, no further cardiology recommendations -D/c telemetry Acute diverticulitis c/b perforation: s/p partial sigmoid resection with end colostomy POD 6 -Pathology confirmed -Tolerating soft diet -ostomy teaching -continue bowel regimen -pain management per surgical team -C/w zosyn HTN: -Stable -C/w amlodipine HLD: -continue lipitor GERD: -continue IV protonix DVT ppx: lovenox DISPOSITION: Surgery team primary, gladly following. PT/OT VS, I&O, 24H, Fishbone Vital Signs/I&O Vital Signs Date Time Temp Pulse Resp B/P (MAP) Pulse Ox O2 Delivery O2 Flow Rate FiO2 06/12/20 12:00 96.7 87 22 144/86 (105) 99 Nasal Cannula 2.0 06/11/20 00:39 31 I&O- Last 24 Hours up to 6 AM 06/12/20 06:00 Intake Total 1270 ml Output Total 2190 ml Balance -920 ml Laboratory Data 24H LABS Laboratory Tests 2 06/12/20 05:22: Nucleated Red Blood Cells % (auto) 0.0, Anion Gap 7L, Glomerular Filtration Rate 57.8, Calcium Level 8.3L, Total Bilirubin 0.7, Aspartate Amino Transf (AST/SGOT) 17, Alanine Aminotransferase (ALT/SGPT) 28, Alkaline Phosphatase 58, Total Protein 5.9L, Albumin 2.4L, Albumin/Globulin Ratio 0.7 06/12/20 08:50: Lab Scanned Report Miscellaneous Lab CBC/BMP Laboratory Tests 06/12/20 05:22 Microbiology Microbiology 06/06/20 Gram Stain - Final, Complete 06/06/20 Wound Culture - Final, Complete E.coli Esbl 06/06/20 Anaerobic Culture - Final, Complete Bacteroides Stercoris Clostridium Ramosum Anaerobic Cocci Fusobacterium Varium Clostridium Innocuum Current Medications Current Medications Medications (Trade) Dose Ordered Sig/Jose Route PRN Reason Start Time Stop Time Status Last Admin Dose Admin Acetaminophen (Tylenol Tab) 650 mg Q4HP PRN PO MILD PAIN or TEMP > 101 06/06/20 16:45 Albuterol Sulfate (Proventil, Ventolin Hfa) 2 puff RQID PRN INH SHORTNESS OF BREATH 06/06/20 16:45 06/10/20 11:11 Amlodipine Besylate (Norvasc) 5 mg DAILY PO 06/08/20 09:00 06/12/20 07:53 Aspirin (Ecotrin) 81 mg DAILY PO 06/08/20 09:00 06/12/20 07:49 Atenolol (Tenormin) 25 mg DAILY PO 06/07/20 09:00 06/07/20 17:23 DC 06/07/20 08:42 Atorvastatin Calcium (Lipitor) 20 mg QHS PO 06/06/20 21:00 06/11/20 21:23 Celecoxib (CeleBREX) 100 mg BID PO 06/12/20 09:00 06/12/20 09:54 Chlorhexidine Gluconate (Peridex Oral Rinse) 15 ml TID SSP 06/06/20 16:00 06/12/20 07:54 Clobetasol Propionate (Temovate 0.05%) APPLIED TO HANDS FOR PSORIASIS BID PRN TOP DRY SKIN 06/06/20 21:00 Diatrizoate Meglum/ Diatrizoate Sod (Gastrografin) 10 ml Q30M PO 06/12/20 10:00 06/12/20 10:31 DC 06/12/20 10:37 Diphenhydramine HCl (Benadryl) 25 mg Q6HP PRN PO ITCHING 06/06/20 16:45 Enoxaparin Sodium (Lovenox) 40 mg DAILY SC 06/07/20 09:00 06/12/20 07:54 Famotidine (Pepcid) 40 mg DAILY PO 06/07/20 09:00 06/12/20 07:51 Fentanyl Citrate (Sublimaze) 25 mcg Q5MP PRN IV PAIN LEVEL 5-10 06/06/20 17:15 06/06/20 18:15 DC Home Med (Med Rec Complete!) ASDIRECTED XX 06/06/20 10:15 06/06/20 10:13 DC Hydromorphone HCl (Dilaudid) 0.4 mg Q5MP PRN IV PAIN LEVEL 4-7 06/06/20 17:15 06/06/20 18:15 DC 06/06/20 16:50 Ketorolac Tromethamine (ToRADol) 15 mg Q6HP PRN IV MILD/MODERATE PAIN (PS 1-7) 06/06/20 16:45 06/11/20 16:44 DC 06/11/20 08:33 Lactated Ringer's 1,000 ml @ 100 mls/hr Q10H IV 06/06/20 16:32 06/08/20 08:43 DC 06/08/20 00:30 Lactated Ringer's 1,000 ml @ 100 mls/hr Q10H IV 06/06/20 17:15 06/06/20 18:15 DC Miscellaneous (Unresolved Clarification Entry) SEE LABEL COMMENTS DAILY XX 06/10/20 09:00 06/11/20 14:24 DC Morphine Sulfate (Morphine Sulfate Inj) 4 mg Q4H PRN IV SEVERE PAIN (PS 8-10) 06/06/20 16:45 Ondansetron HCl (ZOFRAN INJection) 4 mg Q4HP PRN IV NAUSEA OR VOMITING 06/06/20 17:15 06/06/20 18:15 DC 06/06/20 16:50 Ondansetron HCl (ZOFRAN INJection) 4 mg Q6HP PRN IV NAUSEA OR VOMITING 06/06/20 16:45 Oxycodone HCl (Roxicodone, Oxyir) 5 mg ASDIRECTED PRN PO PAIN LEVEL 1-4 06/06/20 17:15 06/06/20 18:15 DC 06/06/20 17:16 Oxycodone/ Acetaminophen (Percocet 5mg/ 325mg Tablet) 1 tab Q4H PRN PO MILD/MODERATE PAIN (PS 1-7) 06/06/20 16:45 06/12/20 02:50 Oxycodone/ Acetaminophen (Percocet 5mg/ 325mg Tablet) 2 tab Q6H PRN PO SEVERE PAIN (PS 8-10) 06/06/20 16:45 06/12/20 08:09 Pantoprazole Sodium (Protonix) 40 mg DAILY IV 06/07/20 09:00 06/12/20 07:49 Piperacillin Sod/ Tazobactam Sod 3.375 gm/Dextrose 50 ml @ 50 mls/hr Q6H IV 06/06/20 17:00 06/12/20 09:14 DC 06/12/20 04:23 Piperacillin Sod/ Tazobactam Sod 3.375 gm/Dextrose 50 ml @ 50 mls/hr Q6H IV 06/12/20 10:00 06/12/20 09:54 Polyethylene Glycol (Miralax) 1 pkt DAILY PO 06/09/20 09:00 06/12/20 08:33 DC 06/11/20 08:31 Psyllium Hydrophilic Mucilloid (Metamucil) 1 pkt BID PO 06/07/20 09:00 06/12/20 09:14 DC 06/11/20 21:23 Psyllium Hydrophilic Mucilloid (Metamucil) 1 pkt DAILY PO 06/12/20 09:00 06/12/20 09:55 Senna/Docusate Sodium (Senokot S) 1 tab BID PO 06/06/20 21:00 06/12/20 07:51 Simethicone (Mylicon) 80 mg QIDP PRN PO BLOATING 06/07/20 08:30 06/08/20 18:57 Sodium Chloride 1,000 ml @ 150 mls/hr Q6H40M IV 06/06/20 09:15 06/06/20 16:49 DC 06/06/20 09:24 Sodium Chloride (Saline Lock Flush) 2 ml ASDIRECTED PRN IV SEE LABEL COMMENTS 06/08/20 08:45 Sodium Chloride (Saline Lock Flush) 2 ml SLF IV 06/08/20 14:00 06/12/20 10:37 Allergies Coded Allergies: MARIA DE JESUS Inhibitors (Verified Adverse Reaction, Intermediate, hyperkalemia, 06/06/20) adenosine (Verified Adverse Reaction, Intermediate, cardiac arrest, 06/06/20) angiotensin II acetate, human (Verified Adverse Reaction, Intermediate, hyperkalemia, 06/06/20) losartan (Verified Adverse Reaction, Intermediate, ARBs = HYPERKALEMIA, 06/06/20) morphine (Verified Adverse Reaction, Mild, itching, 06/06/20) Aniya Fuentes MD Jun 12, 2020 14:54
[2020-06-12 16:00] VITALS: BP 140/84
[2020-06-12] MEDS ORDERED: ALBUTEROL SULFATE 2.5 MG/0.5 ML INH NEB SOLN NEB PRN (18:15)
[2020-06-12 20:00] VITALS: BP 139/84
[2020-06-12] MEDS: ATORVASTATIN 20 MG TAB PO SCH (20:59)
[2020-06-12] MEDS: ALBUTEROL SULFATE 2.5 MG/0.5 ML INH NEB SOLN NEB SCH (23:50)
[2020-06-13] VITALS: BP 130/87
[2020-06-13] MEDS: PIPERACILLIN/TAZOBACTAM SOD 3.375 GM in D5W MINI-BAG PLUS 50 ML IV SCH ×4 (03:40→21:07)
[2020-06-13] MEDS: PERCOCET 5MG/325MG TAB PO PRN ×3 (03:41→22:26)
[2020-06-13 04:00] VITALS: BP 142/78
[2020-06-13 05:27] LABS: HEMATOCRIT 32.2 % (42.0-52.0); HEMOGLOBIN 10.2 g/dl (13.5-17.5); MEAN CORPUSCULAR HEMOGLOBIN 30.3 pg (27.0-33.0); MEAN CORPUSCULAR HGB CONC 31.7 g/dl (32.0-36.5); MEAN CORPUSCULAR VOLUME 95.5 fl (80.0-96.0); PLATELET COUNT, AUTOMATED 234 10^3/uL (150-450); RED BLOOD COUNT 3.37 10^6/uL (4.30-6.10); WHITE BLOOD COUNT 7.8 10^3/uL (4.0-10.0)
[2020-06-13] MEDS: SLF 3 ML SYR IV SCH ×3 (05:37→21:06)
[2020-06-13 05:50] LABS: ALBUMIN 2.4 GM/DL (3.2-5.2); ALT/SGPT 30 U/L (12-78); BILIRUBIN,TOTAL 0.6 MG/DL (0.2-1.0); BLOOD UREA NITROGEN 18 MG/DL (7-18); CALCIUM LEVEL 8.4 MG/DL (8.8-10.2); CARBON DIOXIDE LEVEL 29 MEQ/L (21-32); CHLORIDE LEVEL 103 MEQ/L (98-107); CREATININE FOR GFR 1.24 MG/DL (0.70-1.30); GLOMERULAR FILTRATION RATE > 60.0 (>49); GLUCOSE, FASTING 114 MG/DL (70-100); POTASSIUM SERUM 3.7 MEQ/L (3.5-5.1); SODIUM LEVEL 139 MEQ/L (136-145); TOTAL PROTEIN 5.9 GM/DL (6.4-8.2)
[2020-06-13] MEDS: ALBUTEROL SULFATE 2.5 MG/0.5 ML INH NEB SOLN NEB SCH ×2 (07:14→15:11)
[2020-06-13 08:00] VITALS: BP 136/65
--- NOTE | 2020-06-13 08:31 | IPNPDOC ---
Text Note Date of Service The patient was seen on 06/13/20. NOTE Patient is now POD7 following laparoscopic partial sigmoid colon resection, colostomy for perforated acute diverticulitis path consistent with diagnosis ileus has resolved and patient's ostomy now working. on solid diet I had a follow up CT done yesterday showing no new abscess collection. There was a concern regarding patient having chills the day prior to that CT scan. Remains without leukocytosis, on antibiotics. Cultures show growth of ESBL and multiple anaerobes so I dont have any non IV antibiotics to cover for this. will do a full 14 day course of IV antibiotics instead. working with PT for ambulation, strengthening Patient has significant ERIBERTO, not tolerating his usual CPAP due to irritation of his throat s/p radiation for throat cancer. This seems to be causing intermittent bradycardia, sinus pauses but patient asymptomatic from those events. DVT prophylaxis with lovenox Patient also having a difficult time participating in ostomy care/ stool emptying. I have stopped the miralax and will keep him on metamucil to get a soft formed bulky stool. This issue may contribute to delay in discharge for him. VS,Geobone, I+O VS, Fishbone, I+O Laboratory Tests 06/13/20 04:57 Vital Signs Date Time Temp Pulse Resp B/P (MAP) Pulse Ox O2 Delivery O2 Flow Rate FiO2 06/13/20 04:11 20 06/13/20 04:00 97.2 79 142/78 (99) 100 Nasal Cannula 2.0 06/11/20 00:39 31 I&O- Last 24 Hours up to 6 AM 06/13/20 06:00 Intake Total 750 ml Output Total 1830 ml Balance -1080 ml FELA LANGE MD Jun 13, 2020 08:31
[2020-06-13] MEDS: ASPIRIN 81 MG ENTERIC TAB PO SCH (09:05)
[2020-06-13] MEDS: SENOKOT S TAB PO SCH ×2 (09:05→21:00)
[2020-06-13] MEDS: FAMOTIDINE 20 MG TAB PO SCH (09:05)
[2020-06-13] MEDS: CHLORHEXIDINE GLUCONATE 0.12 % 15ML UDC (PERIDEX ORAL RINSE) SSP SCH ×3 (09:06→20:48)
[2020-06-13] MEDS: ENOXAPARIN 40MG/0.4ML SYRINGE (J1650 PER 10MG) SC SCH (09:06)
[2020-06-13] MEDS: amLODIPine 5 MG TAB PO SCH (09:06)
[2020-06-13] MEDS: PANTOPRAZOLE 40MG VIAL (C9113 PER 1) IV SCH (09:06)
[2020-06-13] MEDS: CelecoXIB (CeleBREX) 100 MG CAP PO SCH ×2 (09:06→20:47)
[2020-06-13] MEDS: METAMUCIL (PSYLLIUM) PACKET PO SCH (09:06)
[2020-06-13] MEDS ORDERED: MOM 30ML SUSPENSION UDC PO ONE (13:30)
[2020-06-13] MEDS: ALBUTEROL 90 MCG/ACT 8GM HFA INHALER INH PRN (14:11)
[2020-06-13 16:00] VITALS: BP_SYST 131; BP_SYST 155; BP_DIAS 60; BP_DIAS 81
[2020-06-13 20:00] VITALS: BP 162/84
[2020-06-13] MEDS: ATORVASTATIN 20 MG TAB PO SCH (20:48)
[2020-06-14] MEDS: PIPERACILLIN/TAZOBACTAM SOD 3.375 GM in D5W MINI-BAG PLUS 50 ML IV SCH ×4 (03:51→21:35)
[2020-06-14 04:00] VITALS: BP 162/90
[2020-06-14 05:52] LABS: HEMATOCRIT 34.2 % (42.0-52.0); HEMOGLOBIN 10.6 g/dl (13.5-17.5); MEAN CORPUSCULAR HEMOGLOBIN 29.7 pg (27.0-33.0); MEAN CORPUSCULAR VOLUME 95.8 fl (80.0-96.0); PLATELET COUNT, AUTOMATED 251 10^3/uL (150-450); RED BLOOD COUNT 3.57 10^6/uL (4.30-6.10); WHITE BLOOD COUNT 5.3 10^3/uL (4.0-10.0)
[2020-06-14] MEDS: SLF 3 ML SYR IV SCH ×3 (06:38→21:35)
[2020-06-14] MEDS: ALBUTEROL 90 MCG/ACT 8GM HFA INHALER INH PRN ×3 (07:34→20:01)
[2020-06-14] MEDS: ALBUTEROL SULFATE 2.5 MG/0.5 ML INH NEB SOLN NEB SCH ×2 (07:34)
[2020-06-14 08:00] VITALS: BP 120/68
[2020-06-14] MEDS: CHLORHEXIDINE GLUCONATE 0.12 % 15ML UDC (PERIDEX ORAL RINSE) SSP SCH ×3 (08:42→21:35)
[2020-06-14] MEDS: ENOXAPARIN 40MG/0.4ML SYRINGE (J1650 PER 10MG) SC SCH (08:42)
[2020-06-14] MEDS: SENOKOT S TAB PO SCH ×2 (08:42→21:00)
[2020-06-14] MEDS: CelecoXIB (CeleBREX) 100 MG CAP PO SCH ×2 (08:43→21:35)
[2020-06-14] MEDS: FAMOTIDINE 20 MG TAB PO SCH (08:43)
[2020-06-14] MEDS: ASPIRIN 81 MG ENTERIC TAB PO SCH (08:43)
[2020-06-14] MEDS: amLODIPine 5 MG TAB PO SCH (08:43)
[2020-06-14] MEDS: PANTOPRAZOLE 40MG VIAL (C9113 PER 1) IV SCH (08:43)
[2020-06-14] MEDS: METAMUCIL (PSYLLIUM) PACKET PO SCH (08:44)
[2020-06-14] MEDS: PERCOCET 5MG/325MG TAB PO PRN ×2 (09:37→19:36)
--- NOTE | 2020-06-14 11:04 | IPNPDOC ---
Text Note Date of Service The patient was seen on 06/14/20. NOTE No acute events overnight. He is tolerating diet and ambulating without any problems. He is using the IS and has good pain control. The only thing keeping him here is the ostomy care, and IV abx. No other complaints at this time. VSSAF NAD abd - soft, TTP appropriate, no rebound or guarding, ostomy with stool in bag, incisions c/d/i labs - below A) 64y/o male s/p lap sigmoid resection with end colostomy for perforated diverticulitis P) reg deit abx monitor labs ostomy teaching ambulate IS plan on d/c next week once home IV abx are set up and ostomy assistance Puneet Baltazar DO VS,Ophelia, I+O VS, Ophelia, I+O Laboratory Tests 06/14/20 05:16 Vital Signs Date Time Temp Pulse Resp B/P (MAP) Pulse Ox O2 Delivery O2 Flow Rate FiO2 06/14/20 09:37 20 Room Air 06/14/20 08:43 76 162/90 06/14/20 08:00 97.0 96 06/14/20 04:00 2.0 06/11/20 00:39 31 I&O- Last 24 Hours up to 6 AM 06/14/20 06:00 Intake Total 1060 ml Output Total 1375 ml Balance -315 ml SAIDA BALTAZAR DO Jun 14, 2020 11:04
[2020-06-14 12:00] VITALS: BP 142/88
[2020-06-14 14:08] VITALS: BP 160/92
--- NOTE | 2020-06-14 14:09 | IPNPDOC ---
Date Seen The patient was seen on 06/14/20. Progress Note SUBJECTIVE: Patient states he has another inhaler which is not started, will clarify with pharmacy. Denies incr abd pain. No wheezing, rhonchi or rales on exam, d/c nebulizer ATC. PHYSICAL EXAMINATION: VITAL SIGNS: Please see below GENERAL APPEARANCE: morbidly obese, NAD HEENT: NCAT, PERRLA, EOMI, MMM, thick neck with b/l cervical swelling-chronic CARDIOVASCULAR: RRR, no mrg LUNGS: CTAB, prolonged expiratory phase, no crackles ABDOMEN: obese, colostomy in place, normoactive sounds EXTREMITIES: WWP, no edema NEUROLOGICAL: CN3-12 intact, speech clear, moving all extremities, AAOx 3 PSYCHIATRIC: Mood and affect appropriate LABORATORY DATA: Laboratory Tests 06/13/20 04:57 06/14/20 05:16 IMAGING: No new imaging PATHOLOGY: Sigmoid colon, segmental resection for perforated diverticulitis: Diverticulosis and diverticulitis. Perforated diverticulum is noted extending into pericolonic fat with abscess formation and overlying marked acute serositis. ASSESSMENT: 64 y/o man with morbid obesity, ERIBERTO previously on CPAP but recently unable to tolerate it after radiation for recent throat cancer, COPD, HTN, CAD, HLD, prior smoker, GERD who presented with abdominal pain and was found to have acute diverticulitis with perforation and had a laparoscopic partial sigmoid colon resection and end colostomy.Placed on zosyn, we are consulted for noted asymptomatic bradycardia and sinus pauses while asleep 2/2 ERIBERTO. PLAN: Acute diverticulitis c/b perforation: s/p partial sigmoid resection with end colostomy POD 8 -Pathology confirmed -Tolerating soft diet -ostomy teaching -continue bowel regimen -pain management per surgical team -ESBL identified on wound culture -C/w zosyn (stop date 06/20/20) Post-operative ileus- resolved. S/p partial sigmoid resection with end colostomy POD 8. -soft abd, hypoactive BS -Formed stool in colostomy -Ambulating well, colostomy training occurring -PT/OT, bowel regimen, tolerating diet -Surgery primary COPD, not currently in exacerbation -Currently saturating well on RA -On albuterol PRN; however, states he takes another inhaler -D/c ATC neb as he does not feel these even work for him -Contacted pharmacy to verify and will restart when confirmed. ERIBERTO with nocturnal hypoxia -C/w CPAP, O2 during the evening. Nocturnal sinus bradycardia and sinus pauses likely 2/2 to apnea multifactorial to ERIBERTO and lymphedema of neck. Noncompliance/intolerance of CPAP since radiation in past -D/deidre atenolol 25 this hospital stay -Tolerating amlodipine 5mg -Dr. Schmid was consulted and has seen. At this time, no further cardiology recommendations HTN: -Stable -C/w amlodipine HLD: -continue lipitor GERD: -continue IV protonix DVT ppx: lovenox DISPOSITION: Surgery team primary, gladly following. PT/OT VS, I&O, 24H, Fishbone Vital Signs/I&O Vital Signs Date Time Temp Pulse Resp B/P (MAP) Pulse Ox O2 Delivery O2 Flow Rate FiO2 06/14/20 12:00 96.5 89 20 142/88 (106) 94 Room Air 06/14/20 04:00 2.0 06/11/20 00:39 31 I&O- Last 24 Hours up to 6 AM 06/14/20 06:00 Intake Total 1060 ml Output Total 1375 ml Balance -315 ml Laboratory Data 24H LABS Laboratory Tests 2 06/14/20 05:16: Nucleated Red Blood Cells % (auto) 0.0 CBC/BMP Laboratory Tests 06/14/20 05:16 Microbiology Microbiology 06/06/20 Gram Stain - Final, Complete 06/06/20 Wound Culture - Final, Complete E.coli Esbl 06/06/20 Anaerobic Culture - Final, Complete Bacteroides Stercoris Clostridium Ramosum Anaerobic Cocci Fusobacterium Varium Clostridium Innocuum Current Medications Current Medications Medications (Trade) Dose Ordered Sig/Jose Route PRN Reason Start Time Stop Time Status Last Admin Dose Admin Acetaminophen (Tylenol Tab) 650 mg Q4HP PRN PO MILD PAIN or TEMP > 101 06/06/20 16:45 Albuterol Sulfate (Proventil Neb) 2.5 mg Q4HP PRN NEB SOB/WHEEZING 06/12/20 18:15 06/13/20 12:25 DC Albuterol Sulfate (Proventil Neb) 2.5 mg RQ8H NEB 06/12/20 00:00 06/13/20 07:14 Albuterol Sulfate (Proventil, Ventolin Hfa) 2 puff QID PRN INH SOB/WHEEZING 06/13/20 12:30 06/14/20 07:34 Albuterol Sulfate (Proventil, Ventolin Hfa) 2 puff RQID PRN INH SHORTNESS OF BREATH 06/06/20 16:45 06/12/20 18:05 DC 06/10/20 11:11 Amlodipine Besylate (Norvasc) 5 mg DAILY PO 06/08/20 09:00 06/14/20 08:43 Aspirin (Ecotrin) 81 mg DAILY PO 06/08/20 09:00 06/14/20 08:43 Atenolol (Tenormin) 25 mg DAILY PO 06/07/20 09:00 06/07/20 17:23 DC 06/07/20 08:42 Atorvastatin Calcium (Lipitor) 20 mg QHS PO 06/06/20 21:00 06/13/20 20:48 Celecoxib (CeleBREX) 100 mg BID PO 06/12/20 09:00 06/14/20 08:43 Chlorhexidine Gluconate (Peridex Oral Rinse) 15 ml TID SSP 06/06/20 16:00 06/14/20 08:42 Clobetasol Propionate (Temovate 0.05%) APPLIED TO HANDS FOR PSORIASIS BID PRN TOP DRY SKIN 06/06/20 21:00 Diatrizoate Meglum/ Diatrizoate Sod (Gastrografin) 10 ml Q30M PO 06/12/20 10:00 06/12/20 10:31 DC 06/12/20 10:37 Diphenhydramine HCl (Benadryl) 25 mg Q6HP PRN PO ITCHING 06/06/20 16:45 Enoxaparin Sodium (Lovenox) 40 mg DAILY SC 06/07/20 09:00 06/14/20 08:42 Famotidine (Pepcid) 40 mg DAILY PO 06/07/20 09:00 06/14/20 08:43 Fentanyl Citrate (Sublimaze) 25 mcg Q5MP PRN IV PAIN LEVEL 5-10 06/06/20 17:15 06/06/20 18:15 DC Home Med (Med Rec Complete!) ASDIRECTED XX 06/06/20 10:15 06/06/20 10:13 DC Hydromorphone HCl (Dilaudid) 0.4 mg Q5MP PRN IV PAIN LEVEL 4-7 06/06/20 17:15 06/06/20 18:15 DC 06/06/20 16:50 Ketorolac Tromethamine (ToRADol) 15 mg Q6HP PRN IV MILD/MODERATE PAIN (PS 1-7) 06/06/20 16:45 06/11/20 16:44 DC 06/11/20 08:33 Lactated Ringer's 1,000 ml @ 100 mls/hr Q10H IV 06/06/20 16:32 06/08/20 08:43 DC 06/08/20 00:30 Lactated Ringer's 1,000 ml @ 100 mls/hr Q10H IV 06/06/20 17:15 06/06/20 18:15 DC Miscellaneous (Unresolved Clarification Entry) SEE LABEL COMMENTS DAILY XX 06/10/20 09:00 06/11/20 14:24 DC Miscellaneous (Unresolved Clarification Entry) SEE LABEL COMMENTS DAILY XX 06/13/20 09:00 06/13/20 11:17 DC Morphine Sulfate (Morphine Sulfate Inj) 4 mg Q4H PRN IV SEVERE PAIN (PS 8-10) 06/06/20 16:45 06/13/20 11:17 DC Ondansetron HCl (ZOFRAN INJection) 4 mg Q4HP PRN IV NAUSEA OR VOMITING 06/06/20 17:15 06/06/20 18:15 DC 06/06/20 16:50 Ondansetron HCl (ZOFRAN INJection) 4 mg Q6HP PRN IV NAUSEA OR VOMITING 06/06/20 16:45 06/13/20 20:54 Oxycodone HCl (Roxicodone, Oxyir) 5 mg ASDIRECTED PRN PO PAIN LEVEL 1-4 06/06/20 17:15 06/06/20 18:15 DC 06/06/20 17:16 Oxycodone/ Acetaminophen (Percocet 5mg/ 325mg Tablet) 1 tab Q4H PRN PO MILD/MODERATE PAIN (PS 1-7) 06/06/20 16:45 06/12/20 02:50 Oxycodone/ Acetaminophen (Percocet 5mg/ 325mg Tablet) 2 tab Q6H PRN PO SEVERE PAIN (PS 8-10) 06/06/20 16:45 06/14/20 09:37 Pantoprazole Sodium (Protonix) 40 mg DAILY IV 06/07/20 09:00 06/14/20 08:43 Piperacillin Sod/ Tazobactam Sod 3.375 gm/Dextrose 50 ml @ 50 mls/hr Q6H IV 06/06/20 17:00 06/12/20 09:14 DC 06/12/20 04:23 Piperacillin Sod/ Tazobactam Sod 3.375 gm/Dextrose 50 ml @ 50 mls/hr Q6H IV 06/12/20 10:00 06/20/20 21:00 06/14/20 09:38 Polyethylene Glycol (Miralax) 1 pkt DAILY PO 06/09/20 09:00 06/12/20 08:33 DC 06/11/20 08:31 Psyllium Hydrophilic Mucilloid (Metamucil) 1 pkt BID PO 06/07/20 09:00 06/12/20 09:14 DC 06/11/20 21:23 Psyllium Hydrophilic Mucilloid (Metamucil) 1 pkt DAILY PO 06/12/20 09:00 06/13/20 09:06 Senna/Docusate Sodium (Senokot S) 1 tab BID PO 06/06/20 21:00 06/14/20 08:42 Simethicone (Mylicon) 80 mg QIDP PRN PO BLOATING 06/07/20 08:30 06/08/20 18:57 Sodium Chloride 1,000 ml @ 150 mls/hr Q6H40M IV 06/06/20 09:15 06/06/20 16:49 DC 06/06/20 09:24 Sodium Chloride (Saline Lock Flush) 2 ml ASDIRECTED PRN IV SEE LABEL COMMENTS 06/08/20 08:45 Sodium Chloride (Saline Lock Flush) 2 ml SLF IV 06/08/20 14:00 06/14/20 13:19 Allergies Coded Allergies: MARIA DE JESUS Inhibitors (Verified Adverse Reaction, Intermediate, hyperkalemia, 06/06/20) adenosine (Verified Adverse Reaction, Intermediate, cardiac arrest, 06/06/20) angiotensin II acetate, human (Verified Adverse Reaction, Intermediate, hyperkalemia, 06/06/20) losartan (Verified Adverse Reaction, Intermediate, ARBs = HYPERKALEMIA, 06/06/20) morphine (Verified Adverse Reaction, Mild, itching, 06/06/20) Aniya Fuentes MD Jun 14, 2020 14:09
[2020-06-14] MEDS: ATORVASTATIN 20 MG TAB PO SCH (21:35)
[2020-06-14 22:00] VITALS: BP 131/88
[2020-06-15] MEDS: PIPERACILLIN/TAZOBACTAM SOD 3.375 GM in D5W MINI-BAG PLUS 50 ML IV SCH ×4 (04:39→22:17)
[2020-06-15] MEDS: SLF 3 ML SYR IV SCH ×3 (04:40→21:12)
[2020-06-15 05:49] LABS: HEMATOCRIT 32.9 % (42.0-52.0); HEMOGLOBIN 10.6 g/dl (13.5-17.5); MEAN CORPUSCULAR HGB CONC 32.2 g/dl (32.0-36.5); MEAN CORPUSCULAR VOLUME 96.2 fl (80.0-96.0); PLATELET COUNT, AUTOMATED 268 10^3/uL (150-450); RED BLOOD COUNT 3.42 10^6/uL (4.30-6.10); WHITE BLOOD COUNT 5.2 10^3/uL (4.0-10.0)
[2020-06-15 06:00] VITALS: BP 149/86
[2020-06-15 06:19] LABS: BLOOD UREA NITROGEN 17 MG/DL (7-18); CARBON DIOXIDE LEVEL 29 MEQ/L (21-32); CHLORIDE LEVEL 107 MEQ/L (98-107); CREATININE FOR GFR 1.14 MG/DL (0.70-1.30); GLOMERULAR FILTRATION RATE > 60.0 (>49); GLUCOSE, FASTING 111 MG/DL (70-100); POTASSIUM SERUM 4.2 MEQ/L (3.5-5.1); SODIUM LEVEL 140 MEQ/L (136-145)
[2020-06-15] MEDS: ALBUTEROL 90 MCG/ACT 8GM HFA INHALER INH PRN (08:12)
--- NOTE | 2020-06-15 09:12 | IPNPDOC ---
Text Note Date of Service The patient was seen on 06/15/20. NOTE No acute events overnight. He is tolerating diet and ambulating without any problems. Only complaint this am is his breathing. He gets short of breath and has to wait too long to get his inhaler brought to him. VSSAF NAD abd - soft, TTP appropriate, no rebound or guarding, ostomy with stool in bag, incisions c/d/i labs - below A) 64y/o male s/p lap sigmoid resection with end colostomy for perforated diverticulitis P) reg deit abx monitor labs ostomy teaching ambulate IS plan on d/c next week once home IV abx are set up and ostomy assistance Puneet Baltazar DO VS,Ophelia, I+O VS, Ophelia, I+O Laboratory Tests 06/15/20 05:35 Vital Signs Date Time Temp Pulse Resp B/P (MAP) Pulse Ox O2 Delivery O2 Flow Rate FiO2 06/15/20 06:00 98.0 78 20 149/86 (107) 97 Room Air 06/14/20 04:00 2.0 06/11/20 00:39 31 I&O- Last 24 Hours up to 6 AM 06/15/20 06:00 Intake Total 960 ml Output Total 500 ml Balance 460 ml SAIDA BALTAZAR DO Jun 15, 2020 09:12
[2020-06-15] MEDS: METAMUCIL (PSYLLIUM) PACKET PO SCH (09:31)
[2020-06-15] MEDS: CelecoXIB (CeleBREX) 100 MG CAP PO SCH ×2 (09:31→21:10)
[2020-06-15] MEDS: ASPIRIN 81 MG ENTERIC TAB PO SCH (09:31)
[2020-06-15] MEDS: CHLORHEXIDINE GLUCONATE 0.12 % 15ML UDC (PERIDEX ORAL RINSE) SSP SCH ×3 (09:31→21:09)
[2020-06-15] MEDS: SENOKOT S TAB PO SCH ×2 (09:31→21:09)
[2020-06-15] MEDS: FAMOTIDINE 20 MG TAB PO SCH (09:31)
[2020-06-15] MEDS: amLODIPine 5 MG TAB PO SCH (09:31)
[2020-06-15] MEDS: PANTOPRAZOLE 40MG VIAL (C9113 PER 1) IV SCH (09:32)
[2020-06-15] MEDS: ENOXAPARIN 40MG/0.4ML SYRINGE (J1650 PER 10MG) SC SCH (09:32)
[2020-06-15] MEDS: PERCOCET 5MG/325MG TAB PO PRN ×2 (09:42→21:10)
[2020-06-15] MEDS: ALBUTEROL 90 MCG/ACT 8GM HFA INHALER INH SCH ×4 (11:39→23:14)
[2020-06-15 14:00] VITALS: BP 157/91
[2020-06-15] MEDS: ATORVASTATIN 20 MG TAB PO SCH (21:10)
[2020-06-15 22:00] VITALS: BP 151/85
[2020-06-16] MEDS: ALBUTEROL 90 MCG/ACT 8GM HFA INHALER INH SCH ×5 (02:31→20:00)
[2020-06-16] MEDS: SLF 3 ML SYR IV SCH ×3 (04:11→22:11)
[2020-06-16] MEDS: PERCOCET 5MG/325MG TAB PO PRN ×3 (04:11→20:21)
[2020-06-16] MEDS: PIPERACILLIN/TAZOBACTAM SOD 3.375 GM in D5W MINI-BAG PLUS 50 ML IV SCH ×4 (04:11→22:10)
[2020-06-16 06:00] VITALS: BP 150/76
[2020-06-16] MEDS: METAMUCIL (PSYLLIUM) PACKET PO SCH ×2 (09:00→09:59)
[2020-06-16] MEDS: ASPIRIN 81 MG ENTERIC TAB PO SCH (09:56)
[2020-06-16] MEDS: FAMOTIDINE 20 MG TAB PO SCH (09:56)
[2020-06-16] MEDS: SENOKOT S TAB PO SCH ×2 (09:56→20:21)
[2020-06-16] MEDS: amLODIPine 5 MG TAB PO SCH (09:57)
[2020-06-16] MEDS: CelecoXIB (CeleBREX) 100 MG CAP PO SCH ×2 (09:58→20:21)
[2020-06-16] MEDS: CHLORHEXIDINE GLUCONATE 0.12 % 15ML UDC (PERIDEX ORAL RINSE) SSP SCH ×4 (09:58→20:23)
[2020-06-16 10:00] VITALS: BP 138/96
[2020-06-16] MEDS: ENOXAPARIN 40MG/0.4ML SYRINGE (J1650 PER 10MG) SC SCH (10:01)
[2020-06-16] MEDS: PANTOPRAZOLE 40MG VIAL (C9113 PER 1) IV SCH (10:58)
[2020-06-16 14:00] VITALS: BP 146/86
[2020-06-16] MEDS: ATORVASTATIN 20 MG TAB PO SCH (20:21)
[2020-06-17] MEDS: PERCOCET 5MG/325MG TAB PO PRN ×3 (02:30→20:13)
[2020-06-17] MEDS: ALBUTEROL 90 MCG/ACT 8GM HFA INHALER INH SCH ×7 (03:52→23:30)
[2020-06-17] MEDS: PIPERACILLIN/TAZOBACTAM SOD 3.375 GM in D5W MINI-BAG PLUS 50 ML IV SCH ×4 (05:35→21:38)
[2020-06-17] MEDS: SLF 3 ML SYR IV SCH ×3 (05:35→21:38)
[2020-06-17 06:00] VITALS: BP 178/97
--- NOTE | 2020-06-17 07:14 | IPNPDOC ---
Text Note Date of Service The patient was seen on 06/17/20. NOTE Patient seems to be having a day. He reports less crampiness in his abdomen and his colostomy seems to be functioning much better. On examination his abdomen is much flatter, nondistended. He has been afebrile throughout his postoperative stay. He is taking to complete his antibiotic course to cover for the ESBL. Also he is continuing to try to get comfortable with this colostomy care. I changed the colostomy wafer today. As mentioned he looks comfortable Abdomen keith are intact. No drainage, erythema or swelling at the incision lines including the periumbilical extraction site. His colostomy is less swollen and is producing soft formed stools. No discrete tenderness on his abdomen. Postop day 10 laparoscopic partial sigmoid colectomy, end colostomy for pe rforated acute diverticulitis His ostomy is functioning normally now and the output has become more solid which would make it easier for him to take care of this at home. He seems to be gradually getting some insight now not to take care of of his colostomy. Sandeep growths shows ESBL with no available oral antibiotic coverage so we will complete a 14 day course of his antibiotics that will and on Tuesday. Anticipate he'll be discharged home on Tuesday. He is complaining of increasing hoarseness in his voice, scratchy/itchy throat as well as difficulty in swallowing both liquids and solids. He has a history of radiation for treatment of his throat cancer last year. He has had lymphadenitis postoperatively at the area. I have spoken to Dr. Modi who will either see him in the hospital during this week or set up away for him to be seen in this clinic while he is in the hospital. VS,Fishbone, I+O VS, Fishbone, I+O Vital Signs Date Time Temp Pulse Resp B/P (MAP) Pulse Ox O2 Delivery O2 Flow Rate FiO2 06/17/20 06:00 97.9 84 20 178/97 (124) 93 Room Air 06/14/20 04:00 2.0 06/11/20 00:39 31 I&O- Last 24 Hours up to 6 AM 06/17/20 05:59 Intake Total 1565 ml Output Total 525 ml Balance 1040 ml FELA LANGE MD Jun 17, 2020 07:14
[2020-06-17 07:22] LABS: HEMATOCRIT 32.2 % (42.0-52.0); HEMOGLOBIN 10.1 g/dl (13.5-17.5); MEAN CORPUSCULAR HEMOGLOBIN 29.8 pg (27.0-33.0); MEAN CORPUSCULAR HGB CONC 31.4 g/dl (32.0-36.5); PLATELET COUNT, AUTOMATED 269 10^3/uL (150-450); RED BLOOD COUNT 3.39 10^6/uL (4.30-6.10); WHITE BLOOD COUNT 6.2 10^3/uL (4.0-10.0)
[2020-06-17 07:41] LABS: C REACTIVE PROTEIN QUANTITATIV 2.2 MG/DL (0.00-0.30); CALCIUM LEVEL 8.9 MG/DL (8.8-10.2); CREATININE FOR GFR 1.35 MG/DL (0.70-1.30); GLOMERULAR FILTRATION RATE 56.8 (>49)
[2020-06-17] MEDS: PANTOPRAZOLE 40MG VIAL (C9113 PER 1) IV SCH (08:39)
[2020-06-17] MEDS: CHLORHEXIDINE GLUCONATE 0.12 % 15ML UDC (PERIDEX ORAL RINSE) SSP SCH ×3 (08:40→20:14)
[2020-06-17] MEDS: METAMUCIL (PSYLLIUM) PACKET PO SCH (08:40)
[2020-06-17] MEDS: FAMOTIDINE 20 MG TAB PO SCH (08:40)
[2020-06-17] MEDS: CelecoXIB (CeleBREX) 100 MG CAP PO SCH ×2 (08:40→20:13)
[2020-06-17] MEDS: amLODIPine 5 MG TAB PO SCH (08:40)
[2020-06-17] MEDS: ASPIRIN 81 MG ENTERIC TAB PO SCH (08:40)
[2020-06-17] MEDS: SENOKOT S TAB PO SCH ×2 (08:40→20:13)
[2020-06-17] MEDS: ENOXAPARIN 40MG/0.4ML SYRINGE (J1650 PER 10MG) SC SCH (09:23)
[2020-06-17 14:35] VITALS: BP 148/80
[2020-06-17] MEDS: ATORVASTATIN 20 MG TAB PO SCH (20:13)
[2020-06-17 22:00] VITALS: BP 126/94
[2020-06-18] MEDS: ALBUTEROL 90 MCG/ACT 8GM HFA INHALER INH SCH ×5 (02:53→19:40)
[2020-06-18 06:00] VITALS: BP 146/93
[2020-06-18] MEDS: PIPERACILLIN/TAZOBACTAM SOD 3.375 GM in D5W MINI-BAG PLUS 50 ML IV SCH ×4 (06:05→21:37)
[2020-06-18] MEDS: SLF 3 ML SYR IV SCH ×3 (06:06→21:37)
[2020-06-18] MEDS: PERCOCET 5MG/325MG TAB PO PRN ×3 (07:24→21:44)
--- NOTE | 2020-06-18 08:43 | IPNPDOC ---
Text Note Date of Service The patient was seen on 06/18/20. NOTE Patient is now closed up the 12 following laparoscopic partial sigmoid colectomy, colostomy for perforated diverticulitis. Overall he is doing well at this point. No complaints except for some soreness in his throat related to chronic lymphadenitis following radiation therapy for his throat cancer. He will be seen by Dr. Modi in his clinic tomorrow I believe for laryngoscopy. Otherwise is tolerating diet. His colostomy is working appropriately with proceeding edema of the colostomy stump. He is completing a 14 day IV antibiotic course for coverage of the ESBL that grew in his fluid cultures which will end on Tuesday. VS,Fishbone, I+O VS, Fishbone, I+O Vital Signs Date Time Temp Pulse Resp B/P (MAP) Pulse Ox O2 Delivery O2 Flow Rate FiO2 06/18/20 07:24 22 06/18/20 06:00 98.1 88 146/93 (110) 96 06/17/20 06:00 Room Air 06/14/20 04:00 2.0 I&O- Last 24 Hours up to 6 AM 06/18/20 06:00 Intake Total 950 ml Output Total 600 ml Balance 350 ml FELA LANGE MD Jun 18, 2020 08:43
[2020-06-18] MEDS: CHLORHEXIDINE GLUCONATE 0.12 % 15ML UDC (PERIDEX ORAL RINSE) SSP SCH ×3 (09:00→21:37)
[2020-06-18] MEDS: SENOKOT S TAB PO SCH ×2 (09:00→21:37)
[2020-06-18] MEDS: METAMUCIL (PSYLLIUM) PACKET PO SCH (09:00)
[2020-06-18] MEDS: FAMOTIDINE 20 MG TAB PO SCH (09:14)
[2020-06-18] MEDS: CelecoXIB (CeleBREX) 100 MG CAP PO SCH ×2 (09:14→21:37)
[2020-06-18] MEDS: ASPIRIN 81 MG ENTERIC TAB PO SCH (09:14)
[2020-06-18] MEDS: ENOXAPARIN 40MG/0.4ML SYRINGE (J1650 PER 10MG) SC SCH (09:15)
[2020-06-18] MEDS: amLODIPine 5 MG TAB PO SCH (09:15)
[2020-06-18] MEDS: PANTOPRAZOLE 40MG VIAL (C9113 PER 1) IV SCH (09:15)
[2020-06-18 14:00] VITALS: BP 149/95
[2020-06-18] MEDS: ATORVASTATIN 20 MG TAB PO SCH (21:37)
[2020-06-18 22:00] VITALS: BP 144/82
[2020-06-19] MEDS: PIPERACILLIN/TAZOBACTAM SOD 3.375 GM in D5W MINI-BAG PLUS 50 ML IV SCH ×4 (03:35→21:38)
[2020-06-19] MEDS: SLF 3 ML SYR IV SCH ×3 (03:35→21:40)
[2020-06-19] MEDS: ALBUTEROL 90 MCG/ACT 8GM HFA INHALER INH SCH ×6 (04:35→20:03)
[2020-06-19 06:00] VITALS: BP 162/80
[2020-06-19 06:07] LABS: HEMATOCRIT 31.5 % (42.0-52.0); HEMOGLOBIN 9.9 g/dl (13.5-17.5); MEAN CORPUSCULAR HEMOGLOBIN 29.7 pg (27.0-33.0); MEAN CORPUSCULAR HGB CONC 31.4 g/dl (32.0-36.5); MEAN CORPUSCULAR VOLUME 94.6 fl (80.0-96.0); PLATELET COUNT, AUTOMATED 278 10^3/uL (150-450); RED BLOOD COUNT 3.33 10^6/uL (4.30-6.10); WHITE BLOOD COUNT 4.3 10^3/uL (4.0-10.0)
[2020-06-19 06:26] LABS: CALCIUM LEVEL 8.9 MG/DL (8.8-10.2); CREATININE FOR GFR 1.33 MG/DL (0.70-1.30); GLOMERULAR FILTRATION RATE 57.8 (>49); POTASSIUM SERUM 3.9 MEQ/L (3.5-5.1)
[2020-06-19] MEDS: CelecoXIB (CeleBREX) 100 MG CAP PO SCH ×2 (08:24→21:36)
[2020-06-19] MEDS: METAMUCIL (PSYLLIUM) PACKET PO SCH ×2 (08:24→08:30)
[2020-06-19] MEDS: PERCOCET 5MG/325MG TAB PO PRN ×3 (08:25→21:37)
[2020-06-19] MEDS: SENOKOT S TAB PO SCH ×2 (08:26→21:36)
[2020-06-19] MEDS: CHLORHEXIDINE GLUCONATE 0.12 % 15ML UDC (PERIDEX ORAL RINSE) SSP SCH ×4 (08:27→21:00)
[2020-06-19] MEDS: SIMETHICONE 80 MG CHEW TAB PO PRN (08:27)
[2020-06-19] MEDS: ASPIRIN 81 MG ENTERIC TAB PO SCH (08:27)
[2020-06-19] MEDS: FAMOTIDINE 20 MG TAB PO SCH (08:27)
[2020-06-19] MEDS: amLODIPine 5 MG TAB PO SCH (08:27)
[2020-06-19] MEDS: PANTOPRAZOLE 40MG VIAL (C9113 PER 1) IV SCH (08:28)
[2020-06-19] MEDS: ENOXAPARIN 40MG/0.4ML SYRINGE (J1650 PER 10MG) SC SCH (08:29)
[2020-06-19 14:00] VITALS: BP 160/90
[2020-06-19 20:00] VITALS: BP 123/90
[2020-06-19] MEDS: ATORVASTATIN 20 MG TAB PO SCH (21:36)
[2020-06-20] MEDS: PIPERACILLIN/TAZOBACTAM SOD 3.375 GM in D5W MINI-BAG PLUS 50 ML IV SCH ×3 (04:33→14:00)
[2020-06-20] MEDS: SLF 3 ML SYR IV SCH (05:25)
[2020-06-20 06:08] VITALS: BP 109/92
[2020-06-20] MEDS: ALBUTEROL 90 MCG/ACT 8GM HFA INHALER INH SCH ×4 (07:36→14:49)
[2020-06-20] MEDS: SENOKOT S TAB PO SCH (09:00)
[2020-06-20] MEDS: METAMUCIL (PSYLLIUM) PACKET PO SCH (09:00)
[2020-06-20] MEDS: CHLORHEXIDINE GLUCONATE 0.12 % 15ML UDC (PERIDEX ORAL RINSE) SSP SCH (09:00)
[2020-06-20] MEDS: CelecoXIB (CeleBREX) 100 MG CAP PO SCH (09:12)
[2020-06-20] MEDS: ENOXAPARIN 40MG/0.4ML SYRINGE (J1650 PER 10MG) SC SCH (09:12)
[2020-06-20] MEDS: FAMOTIDINE 20 MG TAB PO SCH (09:12)
[2020-06-20] MEDS: ASPIRIN 81 MG ENTERIC TAB PO SCH (09:12)
[2020-06-20 09:13] VITALS: BP 109/92
[2020-06-20] MEDS: amLODIPine 5 MG TAB PO SCH (09:13)
[2020-06-20] MEDS: PERCOCET 5MG/325MG TAB PO PRN ×2 (09:14→09:16)
[2020-06-20] MEDS ORDERED: META1POW PO (12:10)
[2020-06-20 14:00] VITALS: BP 137/98
== END 2020-06-20 15:30 | disposition home or self-care (01) | DRG 221 ==
LOC: M ED 07:06 → M SDC 12:00 → M PCU 18:08 → M SDC 18:09 → M PCU 18:10 → M MS5PR 06-14 14:02
PROVIDERS: ADMIT Surgery; ATTEND Surgery
PROC: 0D1N4Z4 Bypass Sigmoid Colon to Cutaneous, Percutaneous Endoscopic Approach (ICD-10-PCS; 2020-06-06)
PROC: 0DBN4ZZ Excision of Sigmoid Colon, Percutaneous Endoscopic Approach (ICD-10-PCS; principal; 2020-06-06 12:16)
DX: K57.20 Diverticulitis of large intestine with perforation and abscess without bleeding (principal); E66.01 Morbid (severe) obesity due to excess calories; Z68.36 Body mass index [BMI] 36.0-36.9, adult; G47.33 Obstructive sleep apnea (adult) (pediatric); I89.0 Lymphedema, not elsewhere classified; R00.1 Bradycardia, unspecified; Z79.82 Long term (current) use of aspirin; Z79.899 Other long term (current) drug therapy; Z88.5 Allergy status to narcotic agent; Z88.8 Allergy status to other drugs, medicaments and biological substances; J44.9 Chronic obstructive pulmonary disease, unspecified; I10 Essential (primary) hypertension; I25.10 Atherosclerotic heart disease of native coronary artery without angina pectoris; Z87.891 Personal history of nicotine dependence; K21.9 Gastro-esophageal reflux disease without esophagitis; Z85.818 Personal history of malignant neoplasm of other sites of lip, oral cavity, and pharynx; I45.10 Unspecified right bundle-branch block; K91.89 Other postprocedural complications and disorders of digestive system

== ENCOUNTER 2020-08-18 12:05 | Emergency (ER) | payer OTHER ==
[~2020-08-18] VITALS: Ht 182.9 cm; Wt 120.5 kg
[~2020-08-18 12:05] MED LIST changes: +FAMO40TA3 PO; +META1POW PO; +PERI12LIQ SSP; +VENTAER INH
[2020-08-18 13:35] LABS: BASO % 0.3 % (0.0-1.0); EOS % 0.3 % (0.0-3.0); HEMATOCRIT 40.8 % (42.0-52.0); HEMOGLOBIN 12.8 g/dl (13.5-17.5); LYMPH # 1.2 10^3/uL (1.5-5.0); LYMPH % 15.5 % (24.0-44.0); MEAN CORPUSCULAR HEMOGLOBIN 29.2 pg (27.0-33.0); MEAN CORPUSCULAR HGB CONC 31.4 g/dl (32.0-36.5); MEAN CORPUSCULAR VOLUME 92.9 fl (80.0-96.0); MONO # 0.9 10^3/uL (0.0-0.8); NEUTROPHILS # 5.6 10^3/uL (1.5-8.5); PLATELET COUNT, AUTOMATED 174 10^3/uL (150-450); RED BLOOD COUNT 4.39 10^6/uL (4.30-6.10); WHITE BLOOD COUNT 7.8 10^3/uL (4.0-10.0)
--- NOTE | 2020-08-18 13:43 | REP ---
INDICATION: DYSPNEA/COUGH. COMPARISON: June 10, 2020. TECHNIQUE: Portable upright AP chest radiograph. FINDINGS: There is mild bibasilar linear platelike atelectasis. Heart size is borderline unchanged. Pulmonary vasculature is not increased. There is no evidence of pleural effusion. No focal infiltrate is appreciated.. IMPRESSION: No focal infiltrate seen. Mild bibasilar discoid atelectasis. Heart size borderline. Otherwise no acute disease.. <Electronically signed by Abdulaziz Ludwig > 08/18/20 [id number]
[2020-08-18 14:02] LABS: ALBUMIN 3.3 GM/DL (3.2-5.2); ALT/SGPT 40 U/L (12-78); BILIRUBIN,DIRECT 0.3 MG/DL (0.0-0.2); BLOOD UREA NITROGEN 29 MG/DL (7-18); CARBON DIOXIDE LEVEL 31 MEQ/L (21-32); CHLORIDE LEVEL 102 MEQ/L (98-107); CREATININE FOR GFR 1.26 MG/DL (0.70-1.30); GLOMERULAR FILTRATION RATE > 60.0 (>49); GLUCOSE, FASTING 102 MG/DL (70-100); POTASSIUM SERUM 4.1 MEQ/L (3.5-5.1); SODIUM LEVEL 140 MEQ/L (136-145); TOTAL PROTEIN 6.3 GM/DL (6.4-8.2)
[2020-08-18] MEDS ORDERED: ISOVUE-370 76% 100ML VIAL As Ordered ONE (14:50)
--- NOTE | 2020-08-18 15:16 | REP ---
INDICATION: SOB; hx of CA COMPARISON: None. TECHNIQUE: Axial contrast enhanced images from the thoracic inlet to the upper abdomen using pulmonary embolus technique with multiplanar re-formations. 75 ml Isovue 370 intravenous contrast material administered without complication. This CT examination was performed using the following dose reduction techniques: Automated exposure control, adjustment of mA and/or kv according to the patient's size, and use of iterative reconstruction technique. FINDINGS: Satisfactory enhancement of the pulmonary vasculature is achieved and no filling defects are identified to suggest pulmonary embolus. Further evaluation of the mediastinum demonstrates atherosclerotic changes to the thoracic aorta and coronary arteries without aortic aneurysm or dissection. No cardiomegaly or pericardial effusion. The bilateral lung baez are well aerated and clear without consolidation pleural effusion or pneumothorax. Tracheobronchial tree is patent. No adenopathy noted. Surrounding musculoskeletal structures intact IMPRESSION: No evidence for pulmonary embolus. No acute mediastinal or pleural parenchymal process. <Electronically signed by Nathaniel Cleary > 08/18/20 [id number]
--- NOTE | 2020-08-18 15:20 | REP ---
INDICATION: SOB/dysphagia ; hx of throat CA. COMPARISON: Comparison CT study April 08, 2020.. TECHNIQUE: 100 mL of intravenous Isovue 370 is administered. Helical scanning is acquired and 3 mm axial images are re-formatted. The coronal and sagittal MPR images are included. FINDINGS: Preliminary biometric screener views are unremarkable. The patient is edentulous. Parotid and submandibular glands are normal and symmetric. There is no evidence of cervical mass or adenopathy. Thyroid lobes are normal and homogeneous. The lung apices show no significant abnormality. Glottic and subglottic airway are unremarkable. Epiglottis appears intact. No tonsillar or peritonsillar process is appreciated. The visualized paranasal sinuses are clear. No intraorbital lesion is seen. No bony destructive lesion is appreciated. There is extensive calcific plaquing in the proximal internal carotid arteries bilaterally just beyond the bifurcation. Significant stenosis is suspected. The right vertebral artery is smaller than the left but both vertebral arteries are patent. IMPRESSION: New no evidence of mass or adenopathy is seen. Extensive calcific plaquing is observed at the carotid bifurcations and proximal ICAs bilaterally. Unchanged from April 08, 2020 study. <Electronically signed by Abdulaziz Ludwig > 08/18/20 [id number]
[2020-08-18] MEDS ORDERED: oxygen (15:47)
[2020-08-18 16:38] VITALS: BP 123/83
--- NOTE | 2020-08-19 06:47 | ECGEPIP ---
[facility] - ED Test Date: 2020-08-18 Pat Name: MAYCOL PA Department: Room: - Gender: Male Scarfer: : [id number] Requested By: Reggie Henriquez Order Number: [id number] Reading MD: Reggie Shelton Measurements Intervals [place] Rate: 105 P: 24 NE: 180 QRS: 18 QRSD: 102 T: 31 QT: 334 QTc: 443 Interpretive Statements SINUS TACHYCARDIA RATE CHANGE COMPARED TO 06/08/20 Electronically Signed on 08-19-2020 6:46:59 EST by Reggie Shelton
--- NOTE | 2020-08-19 07:28 | ED PDOC ---
Post-Departure Follow-Up radiology report faxed to Alyssa Quick MD Aug 19, 2020 07:28
== END 2020-08-18 16:42 | disposition home or self-care (01) ==
LOC: M ED 12:05
DX: J44.9 Chronic obstructive pulmonary disease, unspecified (principal); N18.30 Chronic kidney disease, stage 3 unspecified; I25.2 Old myocardial infarction; R00.0 Tachycardia, unspecified; Z87.891 Personal history of nicotine dependence; Z88.8 Allergy status to other drugs, medicaments and biological substances; Z88.6 Allergy status to analgesic agent
CPT/HCPCS: 36415; 70491; 71045; 71275; 80047; 80048; 80076; 85025; 93005; 93041; 94760; 99285; Q9967

== ENCOUNTER → 2020-08-20 | Outpatient (REF) | payer OTHER ==
[~2020-08-20] MED LIST changes: +oxygen
== END ==
LOC: M SFHCPLAZ 13:04
PROVIDERS: ATTEND Nurse Practitioner Adult Health
DX: R06.02 Shortness of breath (principal)

== ENCOUNTER → 2020-09-17 | Outpatient (REF) | payer OTHER ==
[~2020-09-17] MED LIST changes: +ISOS1TAB36 PO; -ISOS60TA2 PO
== END ==
LOC: M LAB REF 14:03
PROVIDERS: ATTEND Dermatology
DX: L57.0 Actinic keratosis (principal)

== ENCOUNTER → 2020-12-10 | Outpatient (REF) | payer BC, MEDICARE ==
[~2020-12-10] MED LIST changes: +FURO20TA2 PO; +PERF20NE2 INH
[2020-12-10 10:41] LABS: BASO % 0.4 % (0.0-1.0); EOS # 0.1 10^3/uL (0.0-0.5); EOS % 1.3 % (0.0-3.0); HEMATOCRIT 42.4 % (42.0-52.0); HEMOGLOBIN 13.6 g/dl (13.5-17.5); LYMPH # 1.3 10^3/uL (1.5-5.0); MEAN CORPUSCULAR HEMOGLOBIN 29.5 pg (27.0-33.0); MEAN CORPUSCULAR HGB CONC 32.1 g/dl (32.0-36.5); MONO # 0.7 10^3/uL (0.0-0.8); MONO % 9.7 % (2.0-8.0); NEUTROPHILS # 4.6 10^3/uL (1.5-8.5); NEUTROPHILS % 69.5 % (36.0-66.0); PLATELET COUNT, AUTOMATED 256 10^3/uL (150-450); RED BLOOD COUNT 4.61 10^6/uL (4.30-6.10); WHITE BLOOD COUNT 6.7 10^3/uL (4.0-10.0)
[2020-12-10 11:15] LABS: ALBUMIN 3.6 GM/DL (3.2-5.2); ALT/SGPT 21 U/L (12-78); BILIRUBIN,TOTAL 0.7 MG/DL (0.2-1.0); BLOOD UREA NITROGEN 17 MG/DL (7-18); CALCIUM LEVEL 9.7 MG/DL (8.8-10.2); CARBON DIOXIDE LEVEL 29 MEQ/L (21-32); CHLORIDE LEVEL 99 MEQ/L (98-107); CREATININE FOR GFR 1.18 MG/DL (0.70-1.30); GLOMERULAR FILTRATION RATE > 60.0 (>49); GLUCOSE, FASTING 89 MG/DL (70-100); MAGNESIUM LEVEL 2.1 MG/DL (1.8-2.4); POTASSIUM SERUM 4.1 MEQ/L (3.5-5.1); SODIUM LEVEL 136 MEQ/L (136-145); TOTAL PROTEIN 7.3 GM/DL (6.4-8.2)
== END ==
LOC: M SFHCPLAZ 08:39
PROVIDERS: ATTEND Internal Medicine
DX: Z01.818 Encounter for other preprocedural examination (principal); G47.30 Sleep apnea, unspecified; I12.9 Hypertensive chronic kidney disease with stage 1 through stage 4 chronic kidney disease, or unspecified chronic kidney disease; N18.30 Chronic kidney disease, stage 3 unspecified

== ENCOUNTER → 2020-12-12 | Outpatient (CLI) | payer OTHER ==
[~2020-12-12] MED LIST changes: -FURO20TA2 PO
== END ==
LOC: M LABSMTC 10:22
PROVIDERS: ATTEND Anesthesiology
DX: Z01.812 Encounter for preprocedural laboratory examination (principal)

== ENCOUNTER 2020-12-17 06:16 | Inpatient (IN) | payer MEDICARE, BC, OTHER ==
[2020-12-17] VITALS (7 sets, daily range): BP systolic 135–194; BP diastolic 62–95
[~2020-12-17] VITALS: Ht 182.9 cm; Wt 113.9 kg
[2020-12-17] MEDS ORDERED: HEPARIN SOD (PORCINE) 5000UNITS/ML 1ML VIAL/SYRINGE SQ ONE (06:30)
[2020-12-17] MEDS ORDERED: CelecoXIB 400 MG CAP PO ONE (06:30)
[2020-12-17] MEDS ORDERED: metroNIDAZOLE 500 MG in IV 1 EA IV ONE (06:30)
[2020-12-17] MEDS ORDERED: cefoTEtan DISODIUM 2 GM in D5W MINI-BAG PLUS 50 ML IV ONE (06:30)
[2020-12-17] MEDS ORDERED: LR 1,000 ML IV ONE (06:30)
[2020-12-17] MEDS ORDERED: metroNIDAZOLE/NACL 500MG(5MG/ML) 100ML BAG (S0030) As Ordered ONE (06:39)
[2020-12-17] MEDS ORDERED: cefoTEtan INJ 2GM VIAL (S0074 PER 500MG) As Ordered ONE (06:39)
[2020-12-17] MEDS ORDERED: FURO20TA2 PO (06:39)
[2020-12-17] MEDS ORDERED: fentaNYL 250 MCG/5 ML INJECTION (J3010) As Ordered ONE (07:01)
[2020-12-17] MEDS ORDERED: MIDAZOLAM INJ 2MG/2ML VIAL (J2250 PER 1MG) As Ordered ONE (07:01)
[2020-12-17] MEDS ORDERED: ePHEDrine SULFATE 25 MG/5 ML(5MG/ML) SYRINGE As Ordered ONE (07:02)
[2020-12-17] MEDS ORDERED: PHENYLephrine 500MCG 5ML (100MCG/ML) SYRINGE As Ordered ONE ×2 (07:02→08:58)
[2020-12-17] MEDS ORDERED: dexameTHASONE 4 MG/ML 1ML VIAL (J1100 PER 1MG) As Ordered ONE ×2 (07:02→08:05)
[2020-12-17] MEDS ORDERED: SUGAMMADEX SODIUM 500 MG/5 ML VIAL (BRIDION) As Ordered ONE (07:02)
[2020-12-17] MEDS ORDERED: ROCURONIUM BROMIDE 50 MG/5 ML VIAL As Ordered ONE (07:02)
[2020-12-17] MEDS ORDERED: ONDANSETRON 4MG/2ML VIAL As Ordered ONE (07:02)
[2020-12-17] MEDS ORDERED: ACETAMINOPHEN 1000MG 100ML IV BTL (OFIRMEV) (J0131 PER 10MG) As Ordered ONE (07:02)
[2020-12-17] MEDS ORDERED: LIDOCAINE 2% 100MG/5ML SDV (FOR ANES.) As Ordered ONE ×2 (07:03→10:18)
[2020-12-17] MEDS ORDERED: propofoL 200 MG/20 ML VIAL As Ordered ONE (07:03)
[2020-12-17] MEDS ORDERED: LIDOCAINE 1% SDV 30ML VIAL As Ordered ONE (07:11)
[2020-12-17] MEDS ORDERED: BUPIVACAINE HCL 0.25% 30ML VIAL As Ordered ONE (07:11)
[2020-12-17] MEDS ORDERED: ALVIMOPAN 12 MG CAPSULE (ENTEREG) PO ONE (07:25)
[2020-12-17] MEDS ORDERED: BUPIVACAINE LIPOSOME/PF 1.3% 20ML VIAL (13.3MG/ML)(EXPAREL)(C9290 PER1MG) As Ordered ONE (08:23)
[2020-12-17] MEDS ORDERED: BUPIVACAINE HCL 0.25% 10ML VIAL As Ordered ONE (08:23)
[2020-12-17] MEDS ORDERED: LABETALOL 100MG/20ML VIAL As Ordered ONE ×2 (08:46→12:28)
[2020-12-17] MEDS ORDERED: ALBUTEROL 90 MCG/ACT 8GM HFA INHALER INH PRN (12:15)
[2020-12-17] MEDS ORDERED: FORMOTEROL FUMARATE 20 MCG/2 ML INHALATION SOLUTION (PERFOROMIST) INH PRN (12:15)
[2020-12-17] MEDS ORDERED: ONDANSETRON 4MG/2ML VIAL IV PRN ×3 (12:15→14:30)
[2020-12-17] MEDS ORDERED: CLOBETASOL PROP 0.05% OINT 30 GM TOP PRN (12:15)
[2020-12-17] MEDS: LABETALOL 100MG/20ML VIAL IV PRN ×6 (12:29→13:44)
[2020-12-17] MEDS ORDERED: fentaNYL 100 MCG/2 ML INJECTION (J3010) As Ordered ONE (12:55)
[2020-12-17] MEDS: fentaNYL 100 MCG/2 ML INJECTION (J3010) IV PRN ×7 (12:56→14:23)
[2020-12-17] MEDS ORDERED: KETOROLAC 30 MG/ML 1ML VIAL IV SCH ×2 (13:00→23:00)
[2020-12-17] MEDS ORDERED: fentaNYL 100 MCG/2 ML INJECTION (J3010) IV PRN (13:05)
[2020-12-17] MEDS ORDERED: METOCLOPRAMIDE INJ 10MG/2ML VIAL (J2765 PER 1) IV PRN ×2 (13:05→14:30)
[2020-12-17] MEDS ORDERED: PERCOCET 5MG/325MG TAB PO PRN ×2 (13:05→14:30)
[2020-12-17] MEDS ORDERED: LR 1,000 ML IV SCH ×2 (13:05→14:30)
[2020-12-17] MEDS ORDERED: LABETALOL 100MG/20ML VIAL IV PRN (13:05)
[2020-12-17] MEDS ORDERED: ALBUTEROL SULFATE 2.5 MG/0.5 ML INH NEB SOLN INH ONE (13:55)
[2020-12-17] MEDS ORDERED: hydrALAZINE 20MG/ML 1ML VIAL (J0360 PER 20MG) As Ordered ONE (14:32)
[2020-12-17] MEDS: hydrALAZINE 20MG/ML 1ML VIAL (J0360 PER 20MG) IV PRN ×4 (14:35→15:07)
[2020-12-17] MEDS: HYDROMORPHONE HCL 0.5 MG/ 0.5 ML SYRINGE (J1170 PER 1) IV PRN ×2 (14:53→15:09)
[2020-12-17] MEDS: PANTOPRAZOLE 40MG VIAL (C9113 PER 1) IV SCH (16:25)
[2020-12-17] MEDS: PERCOCET 5MG/325MG TAB PO PRN ×2 (16:29→21:00)
[2020-12-17] MEDS: LR 1,000 ML IV SCH (16:30)
[2020-12-17] MEDS: ACETAMINOPHEN TAB 650MG DOSE (2X325MG) PO SCH (17:41)
[2020-12-17] MEDS ORDERED: MORPHINE 2 MG/ML 1ML VIAL (J2270) IV PRN (19:20)
[2020-12-17] MEDS ORDERED: amLODIPine 5 MG TAB PO ONE (19:25)
--- NOTE | 2020-12-17 19:28 | CR.PDOC ---
General Date of Consultation: Dec 17, 2020 Consultation REASON FOR CONSULTATION/CHIEF COMPLAINT: Status post elective reversal colonoscopy HISTORY OF PRESENT ILLNESS: Patient is 65 years old male with past history of hypertension, advanced COPD on 2 L of oxygen at home, hyperlipidemia, diverticulitis, obesity, laryngeal cancer status post radiation presented to the hospital for elective reversal robotic-assisted colostomy. His colostomy was placed for perforated colon secondary to diverticulitis in fall 2019. Patient tolerated procedure well. When I saw him in the room patient stated that he had mild abdominal pain in the area of drainage and some shortness of breath. Patient denied fever, chills, nausea, vomiting, chest pain or palpitations ALLERGIES: Please see below. HOME MEDICATIONS: Please see below. 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 RESENDEZ-PAIN MEDICATIONS THROUGH HIS SERVICE HYPERTENSION HYPERLIPIDEMIA ARTHRITIS ORCHITIS;ORCHIDIDITS GERD COPD FATTY LIVER DISEASE TOBACCO ABUSE QUIT 07/10 OBESITY BMI 38.27 NOVEMBER 2014 CKD 3 USUALLY RUNS IN THE OFFICE BUN 31 CREATININE 1.8 GFR 41 TRACHEOSTOMY DUE TO EPIGLOTTITIS IN 1991 COLONOSCOPY IN 2006 IN [place] REPORTED NORMAL COLONOSCOPY FEBRUARY 2017 5 POLYPS REMOVED, MILD DIVERTICULOSIS, 3 YEAR FOLLOW-UP STRESS TEST IN [place] 2008 REPORTED NORMAL CARDIAC CATH 12/31/2015, LVEF 60-65%, SEVERE 2 VESSEL CAD, KI TO RCA AND LCX 01/04; KI TO RCA AT INTRASTENT STENOSIS AND L CX 06/07. FOLLOWED THROUGH DR. CAMACHO TOPETE MRSA, HOSPITALIZED ERIBERTO-CPAP FALL 2016 UPPER GI ENDOSCOPY WITH INSERTION OF PEG TUBE-DR. GUDINO-08/201908/29/[address] COYNE, PEG TUBE REMOVED NOVEMBER 2019 ALLERGIES PAST SURGICAL HISTORY: TONSILLECTOMY & ADENOIDECTOMY CHILD RIGHT KNEE ARTHROSCOPY? SKIN GRAFT 1984 TRACHEOSTOMY DUE TO EPIGLOTTIS 1991 DISCCESTOMY 2006,2005 [place]ONOSCOPY-[place] 2006 LEFT HIP REPLACEMENT-[place] 10/2008 RIGHT HIP REPLACEMENT-[place] 12/02/08 LUMBAR LAMINECTOMY 11/03/2008 [facility]-CARDIAC STENT 12/31/2015 HEART CATH IN [place] OCTOBER 2016 [facility] - CARDIAC STENT 05/2017 CARDIAC CATHETERIZATION [place] NO STENTS NEEDED 2016 COLONOSCOPY FOR POLYPS REMOVED. MILD DIVERTICULOSIS. POLYPS TUBULAR ADENOMA 3 YEAR FOLLOW-UP DUE FEBRUARY 2020 03/04/2017 TURP 07/05/2018 HEART STENT 12/2018 MICRODIRECT LARYNGOSCOPY WITH PHOTOMICROGRAPHY AND BIOPSY OF LESION ON THE EPIGLOTTIS-DR. VALLE 06/2019 CERVICAL ESOPHAGOSCOPY- DR. VALLE 06/2019 UPPER GI ENDOSCOPY WITH INSERTION OF PEG TUBE-DR. GUDINO 08/2019 RADIATION FOR THROAT CANCER 11/2019 SIGMOID COLECTOMY WITH OSTOMY 07/15/20 ROBOTIC COLOSTOMY REVERSAL-DR. LANGE 12/17/2020 FAMILY HISTORY: FATHER: 49 YRS, HEART ATTACK MOTHER: ALIVE 80 YRS, DIAGNOSED WITH OTHER MALIGNANT NEOPLASM OF UNSPECIFIED SITE 1 SON(S) , 1 DAUGHTER(S) - HEALTHY. MOTHER POSITIVE FOR BLADDER CANCER. L[facility]ING IN [facility] [address]FATHER AGE 49 OF AN MIBROTHER 56 [facility]1 DAUGHTER, 1 SON, [facility] DENIES FAMILY HX OF MELANOMA AND PANCREATIC CANCER. SOCIAL HISTORY: Patient is former smoker, denied alcohol or drug abuse history REVIEW OF SYSTEMS: 10 point review history negative except as listed above PHYSICAL EXAMINATION: VITAL SIGNS: Please see below. Objective: GENERAL APPEARANCE: NAD HEENT: no scleral icterus, no JVD, EOMI CARDIOVASCULAR: S1S2 LUNGS: Diminished lung sounds bilaterally ABDOMEN: soft & mildly tender w palpitation, obese, drainage in place with sanguinous discharge MUSCULOSKELETAL: no cyanosis, no swelling INTEGUMENT: no generalized pallor NEUROLOGICAL: cranial nerve function from 2-12 intact intact, follows commands, speech not dysarthric LABORATORY DATA: Please see below. ASSESSMENT/PLAN: Patient is 65 years old male with past history of hypertension, advanced COPD on 2 L of oxygen at home, hyperlipidemia, diverticulitis, obesity, laryngeal cancer status post radiation presented to the hospital for elective reversal robotic- assisted colostomy. His colostomy was placed for perforated colon secondary to diverticulitis in fall 2019. Patient tolerated procedure well. When I saw him in the room patient stated that he had mild abdominal pain in the area of drainage and some shortness of breath. Patient denied fever, chills, nausea, vomiting, chest pain or palpitations Status post reversal colostomy day 0 Surgical team follows him Antibiotics therapy per surgical team Pain management Coronary artery diseases, status post stent placement in 2015 Aspirin on hold for now Continue statin DC Toradol, not recommended medication in coronary artery diseases COPD Not in acute exacerbation Patient is on 2 L his baseline Continue inhalers Incentive spirometry, Acapella GERD Continue PPI Hypertension I added amlodipine 5 mg daily CKD3 We'll check kidney function, creatinine, GFR Sleep apnea CPAP overnight Vital Signs/I&O Vital Signs Date Time Temp Pulse Resp B/P (MAP) Pulse Ox O2 Delivery O2 Flow Rate FiO2 12/17/20 18:06 86 152/90 (110) 96 12/17/20 16:59 18 12/17/20 16:30 2.0 12/17/20 16:11 96.5 Room Air Allergies Coded Allergies: MARIA DE JESUS Inhibitors (Verified Adverse Reaction, Intermediate, hyperkalemia, 12/17/20) adenosine (Verified Adverse Reaction, Intermediate, cardiac arrest, 12/17/20) angiotensin II acetate, human (Verified Adverse Reaction, Intermediate, hyperkalemia, 12/17/20) losartan (Verified Adverse Reaction, Intermediate, ARBs = HYPERKALEMIA, ) morphine (Verified Adverse Reaction, Mild, itching, 12/17/20) Home Medications Scheduled Aspirin (Aspirin EC) 81 Mg Tablet.dr, 81 MG PO DAILY, (Reported) Atorvastatin Calcium (Lipitor) 20 Mg Tab, 20 MG PO QHS, (Reported) Famotidine (Famotidine) 40 Mg Tablet, 40 MG PO DAILY, (Reported) NEW MED, HAS NOT STARTED Furosemide (Furosemide) 20 Mg Tablet, 20 MG PO DAILY, (Reported) Scheduled PRN Albuterol Sulfate (Ventolin Hfa) 18 Gm Hfa.aer.ad, 2 PUFFS INH QID PRN for SHORTNESS OF BREATH, (Reported) Clobetasol Propionate (Temovate) 15 Gm Oint...g., 1 DOSE TOP BID PRN for DRY SKIN, (Reported) APPLIES TO HANDS FOR PSORIASIS Formoterol Fumarate (Perforomist) 20 Mcg/2 Ml Vial.neb, 20 MCG INH BIDP PRN for SHORTNESS OF BREATH, (Reported) Oxycodone HCl/Acetaminophen (Oxycodone-Acetaminophen 5-325) 1 Each Tablet, 2 TAB PO Q6H PRN for PAIN, (Reported) Urea (Urea) 85 Gm Cream..g., 1 DOSE EXT DAILY PRN for DRY SKIN, (Reported) USES ON HANDS ERICH WEEKS DO Dec 17, 2020 19:28
[2020-12-17] MEDS: ATORVASTATIN 20 MG TAB PO SCH (20:18)
[2020-12-17] MEDS ORDERED: MORPHINE 4 MG/ML 1ML VIAL/SYRINGE (J2270) IV PRN (22:15)
[2020-12-18] VITALS (11 sets, daily range): BP systolic 122–185; BP diastolic 72–98
[2020-12-18] MEDS: LR 1,000 ML IV SCH ×2 (00:17→10:07)
[2020-12-18] MEDS: PERCOCET 5MG/325MG TAB PO PRN ×3 (05:13→20:33)
[2020-12-18] MEDS: ACETAMINOPHEN TAB 650MG DOSE (2X325MG) PO SCH ×5 (05:14→17:57)
--- NOTE | 2020-12-18 05:21 | ROOPDOC ---
[facility] Report Of Operation Report of Operation DATE OF PROCEDURE: 12/17/20 PREPROCEDURE DIAGNOSES: history of perforated diverticulitis, colostomy status. POSTPROCEDURE DIAGNOSES: history of perforated diverticulitis, leftover portion of redundant sigmoid with extensive diverticulosis, colostomy status. PROCEDURE: Robotic assisted laparoscopic completion sigmoid colectomy, reversal of colostomy with end to end proctocolic anastomosis (25 EEA stapler), laparoscopic release of splenic flexure, flexible sigmoidoscopy bilateral transversus abdominis plane block (Exparel, Marcaine, NS total of 30 mLs on each side). SURGEON: Robert Falcon MD INTERNATIONAL LOGISTICS COORDINATOR: Praveena Baig NP ( assisted with placement of ports, management of instruments and adjustment of robotic arms on the field while I was at the surgeons, console, specimen extraction, and closure of ports, wound) Jeremy Zamora MD (assisted me during proctocolic anastomosis, flexible sigmoidoscopy) ANESTHESIA: General Endotracheal Anesthesia. ESTIMATED BLOOD LOSS: Approximately 25 mL. COMPLICATIONS: none. REMARKS: 65 M with multiple comorbidities including h/o radiation to the neck for prior H&N cancer causing chronic swelling over the area and concerns for possible airway problem intraoperatively. obesity, sleep apnea, had emergent laparoscopic sigmoid colectomy, colostomy placement last fall and has recovered adequately from this. He is brought today for reversal of his colostomy. PROCEDURE NOTE: Dr. Modi (his ENT) was present during the case for possible need for tracheostomy if he had airway problems. He had some leftover redundant sigmoid which was removed down to upper rectum. Lateral to medial release of splenic flexure to gain length. SPECIMEN: sigmoid colon, colostomy, donuts DRAIN: 19 armando drain to pelvis. DESCRIPTION OF PROCEDURE: . ROBERT FALCON MD Dec 18, 2020 05:21
[2020-12-18 05:49] LABS: BASO % 0.1 % (0.0-1.0); HEMATOCRIT 37.4 % (42.0-52.0); HEMOGLOBIN 11.9 g/dl (13.5-17.5); LYMPH % 11.2 % (24.0-44.0); MEAN CORPUSCULAR HEMOGLOBIN 28.7 pg (27.0-33.0); MEAN CORPUSCULAR HGB CONC 31.8 g/dl (32.0-36.5); MEAN CORPUSCULAR VOLUME 90.3 fl (80.0-96.0); MONO # 0.7 10^3/uL (0.0-0.8); MONO % 7.2 % (2.0-8.0); NEUTROPHILS # 7.3 10^3/uL (1.5-8.5); NEUTROPHILS % 80.9 % (36.0-66.0); PLATELET COUNT, AUTOMATED 233 10^3/uL (150-450); RED BLOOD COUNT 4.14 10^6/uL (4.30-6.10)
[2020-12-18 06:10] LABS: BILIRUBIN,TOTAL 0.5 MG/DL (0.2-1.0); CALCIUM LEVEL 9.3 MG/DL (8.8-10.2); CREATININE FOR GFR 1.35 MG/DL (0.70-1.30); GLOMERULAR FILTRATION RATE 56.6 (>49); MAGNESIUM LEVEL 1.8 MG/DL (1.8-2.4); POTASSIUM SERUM 3.6 MEQ/L (3.5-5.1); TOTAL PROTEIN 6.9 GM/DL (6.4-8.2)
[2020-12-18] MEDS ORDERED: POTASSIUM CHLORIDE 10 MEQ SR TABLET PO ONE (08:00)
[2020-12-18] MEDS ORDERED: KETOROLAC 30 MG/ML 1ML VIAL IV PRN (08:15)
[2020-12-18] MEDS ORDERED: amLODIPine 5 MG TAB PO SCH (09:00)
--- NOTE | 2020-12-18 09:05 | IPNPDOC ---
Text Note Date of Service The patient was seen on 12/18/20. NOTE Gen. surgery. Dr. Falcon The patient is a 65-year-old male status post robotic-assisted laparoscopic colostomy reversal as per Dr. Falcon 12/17/20. The patient is sitting up in bed, he states he had an episode of 9/10 pain this morning, he took 2 Percocet. He states he is still having some pain. Denies nausea or vomiting. Reports no flatus yet. Afebrile. Heart rate 79, respiratory rate 18, blood pressure 175/81, 97% 2 L nasal cannula. General. Awake and alert, sitting up in bed, no acute distress. Lungs with decreased breath sounds bilaterally. S1-S2 regular rate and rhythm. Abdomen protuberant, mildly distended but soft, surgical incisions intact, dressings are C/D/I. small amount of drainage is noted around the SABIHA drain dressing, serosanguineous drainage. SABIHA drain 60 mL recorded yesterday. I/O 4070/860, +3210 WBC 9.0, hemoglobin 11.9, platelets 233. Serum creatinine 1.35 with GFR 56.6. Assessment/plan Robotic-assisted laparoscopic colostomy reversal as per Dr. Falcon 12/17/20. Patient is reviewed and examined as per Dr. Falcon this morning. Will add Toradol 15 mg IV every 6 hours to improve pain control 3 days. Reduce dose as the patient is noted to have serum creatinine of 1.35 with GFR of 56. DC Cummings Trial of soft diet Encourage out of bed and ambulation. PT eval and treat Continue to closely monitor. VS,Fishbone, I+O VS, Fishbone, I+O Laboratory Tests 12/18/20 05:23 Vital Signs Date Time Temp Pulse Resp B/P (MAP) Pulse Ox O2 Delivery O2 Flow Rate FiO2 12/18/20 07:42 96.7 79 18 175/81 (112) 97 Nasal Cannula 2.0 I&O- Last 24 Hours up to 6 AM 12/18/20 06:00 Intake Total 4070 ml Output Total 1085 ml Balance 2985 ml Maine Guevara Dec 18, 2020 09:05
[2020-12-18] MEDS: PANTOPRAZOLE 40MG VIAL (C9113 PER 1) IV SCH (10:07)
[2020-12-18] MEDS: ALVIMOPAN 12 MG CAPSULE (ENTEREG) PO SCH ×2 (10:07→20:31)
--- NOTE | 2020-12-18 10:26 | IPNPDOC ---
Subjective Date Seen The patient was seen on 12/18/20. Subjective Chief Complaint/HPI HPI: Pt was seen and examined at bedside this am. He is s/p day 1 from a reverse colostomy and has had about 20cc of light pink colored output from his SABIHA drain. Pain is being currently controlled. He states that he has chronic back pain which may be contributing to his post op pain. He states that he has not yet passed flatus and has not had a bowel movement yet. He complains of throat irritation from intubation tube. He's currently tolerating liquid diet. No other acute complaints overnight. Denies any fever, chills, n/v/d, CP, SOB. PHYSICAL EXAM: vs: see below GEN: Obese male, laying in bed comfortably without any acute distress PULM: no wheezing, rhonci or rales CARDIO: No m/g/r appreciated; no crackles, no lower extr edema appreciated bilaterally ABD: obese, soft, nontender, nondistended, hypoactive bowel sounds Extr: no clubbing, cyanosis or bruising appreciated LABS: see below IMAGING: see below ASSESSMENT AND PLAN: This is a 65 y/o M who is s/p day 1 from a robotic assisted lap colostomy reversal. He's having adequate urine output overnight and will D/C cesar today. He has about 20cc of pinkish output from his SABIHA drain per nursing report. Will leave in his SABIHA tube and likely pull tomorrow. He has not yet passed flatus or had a bowel movement and has hypoactive bowel sounds. We will transition him from liquid diet to trial of mechanical soft diet as tolerated by patient. Encourage to get out of bed and ambulate per PT/OT to move his bowels. Pt has chronic back pain and complains of uncontrolled pain. Will add a short course of toradol 15mg q6h and will closely monitor renal function. Assessment /Plan Plan/VTE VTE Prophylaxis Ordered?: Yes VS, I&O, 24H, Fishbone Vital Signs/I&O Vital Signs Date Time Temp Pulse Resp B/P (MAP) Pulse Ox O2 Delivery O2 Flow Rate FiO2 12/18/20 07:42 96.7 79 18 175/81 (112) 97 Nasal Cannula 2.0 I&O- Last 24 Hours up to 6 AM 12/18/20 06:00 Intake Total 4070 ml Output Total 1085 ml Balance 2985 ml Laboratory Data 24H LABS Laboratory Tests 2 12/18/20 05:23: Immature Granulocyte % (Auto) 0.6, Neutrophils (%) (Auto) 80.9H, Lymphocytes (%) (Auto) 11.2L, Monocytes (%) (Auto) 7.2, Eosinophils (%) (Auto) 0.0, Basophils (%) (Auto) 0.1, Neutrophils # (Auto) 7.3, Lymphocytes # (Auto) 1.0L, Monocytes # (Auto) 0.7, Eosinophils # (Auto) 0.0, Basophils # (Auto) 0.0, Nucleated Red Blood Cells % (auto) 0.0, Anion Gap 5L, Glomerular Filtration Rate 56.6, Calcium Level 9.3, Magnesium Level 1.8, Total Bilirubin 0.5, Aspartate Amino Transf (AST/SGOT) 16, Alanine Aminotransferase (ALT/SGPT) 20, Alkaline Phosphatase 71, VP-Eqf-T-Type Natriuretic Peptide 504H, Total Protein 6.9, Albumin 3.0L, Albumin/Globulin Ratio 0.8 CBC/BMP Laboratory Tests 12/18/20 05:23 GME ATTESTATION GME ATTESTATION My faculty preceptor for this patient encounter was physically present during the encounter and was fully available. All aspects of the patient interview, examination, medical decision making process, and medical care plan development were reviewed and approved by the faculty preceptor. The faculty preceptor is aware and concurs with the plan as stated in the body of this note and will attest to such by his/her cosignature. Valentina Thorne DO Dec 18, 2020 10:26
--- NOTE | 2020-12-18 11:57 | IPNPDOC ---
Text Note Date of Service The patient was seen on 12/18/20. NOTE Subjective: Patient complains of abdominal pain and back pain. He told me that he didn't sleep well. His systolic blood pressure was elevated to 175 in the morning PHYSICAL EXAMINATION: VITAL SIGNS: Please see below. Objective: GENERAL APPEARANCE: NAD HEENT: no scleral icterus, no JVD, EOMI CARDIOVASCULAR: S1S2 LUNGS: Diminished lung sounds bilaterally ABDOMEN: soft & mildly tender w palpitation, obese, drainage in place with sanguinous discharge MUSCULOSKELETAL: no cyanosis, no swelling INTEGUMENT: no generalized pallor NEUROLOGICAL: cranial nerve function from 2-12 intact intact, follows commands, speech not dysarthric ASSESSMENT/PLAN: Patient is 65 years old male with past history of hypertension, advanced COPD on 2 L of oxygen at home, hyperlipidemia, diverticulitis, obesity, laryngeal cancer status post radiation presented to the hospital for elective reversal robotic- assisted colostomy. His colostomy was placed for perforated colon secondary to diverticulitis in fall 2019. Patient tolerated procedure well. When I saw him in the room patient stated that he had mild abdominal pain in the area of drainage and some shortness of breath. Patient denied fever, chills, nausea, vomiting, chest pain or palpitations Status post reversal colostomy day 1 Surgical team follows him Antibiotics therapy per surgical team Pain management. I intensified pain management with tramadol. Most likely elevation of blood pressure due to pain Coronary artery diseases, status post stent placement in 2015 Aspirin on hold for now Continue statin DC Toradol, not recommended medication in coronary artery diseases COPD/chronic hypoxemic respiratory failure Not in acute exacerbation Patient is on 2 L his baseline Continue inhalers Incentive spirometry, Acapella GERD Continue PPI Hypertension I increased the dose of amlodipine to 10 mg CKD3 Kidney function at baseline Sleep apnea CPAP overnight VS,Fishbone, I+O VS, Fishbone, I+O Laboratory Tests 12/18/20 05:23 Vital Signs Date Time Temp Pulse Resp B/P (MAP) Pulse Ox O2 Delivery O2 Flow Rate FiO2 12/18/20 10:39 18 12/18/20 10:08 87 150/72 12/18/20 10:01 93 Room Air 12/18/20 07:42 96.7 2.0 I&O- Last 24 Hours up to 6 AM 12/18/20 06:00 Intake Total 4070 ml Output Total 1085 ml Balance 2985 ml ERICH WEEKS DO Dec 18, 2020 11:57
[2020-12-18] MEDS ORDERED: amLODIPine 5 MG TAB PO ONE (12:15)
[2020-12-18] MEDS: traMADol 50 MG TAB PO PRN (16:02)
[2020-12-18] MEDS: KETOROLAC 30 MG/ML 1ML VIAL IV SCH ×2 (16:03→21:49)
[2020-12-18] MEDS: ATORVASTATIN 20 MG TAB PO SCH (20:31)
[2020-12-19 00:09] VITALS: BP 173/79
[2020-12-19 04:00] VITALS: BP 179/84
[2020-12-19] MEDS: KETOROLAC 30 MG/ML 1ML VIAL IV SCH ×4 (04:32→21:16)
[2020-12-19] MEDS: ACETAMINOPHEN TAB 650MG DOSE (2X325MG) PO SCH ×2 (06:00)
[2020-12-19 06:01] LABS: BASO % 0.3 % (0.0-1.0); EOS % 0.4 % (0.0-3.0); HEMATOCRIT 37.2 % (42.0-52.0); HEMOGLOBIN 11.7 g/dl (13.5-17.5); LYMPH # 0.8 10^3/uL (1.5-5.0); LYMPH % 10.2 % (24.0-44.0); MEAN CORPUSCULAR HEMOGLOBIN 28.9 pg (27.0-33.0); MEAN CORPUSCULAR HGB CONC 31.5 g/dl (32.0-36.5); MEAN CORPUSCULAR VOLUME 91.9 fl (80.0-96.0); MONO # 0.7 10^3/uL (0.0-0.8); MONO % 9.4 % (2.0-8.0); NEUTROPHILS # 6.2 10^3/uL (1.5-8.5); NEUTROPHILS % 79.3 % (36.0-66.0); PLATELET COUNT, AUTOMATED 203 10^3/uL (150-450); RED BLOOD COUNT 4.05 10^6/uL (4.30-6.10); WHITE BLOOD COUNT 7.9 10^3/uL (4.0-10.0)
[2020-12-19 06:25] LABS: ALBUMIN 2.6 GM/DL (3.2-5.2); ALT/SGPT 17 U/L (12-78); BILIRUBIN,TOTAL 0.5 MG/DL (0.2-1.0); BLOOD UREA NITROGEN 15 MG/DL (7-18); CALCIUM LEVEL 8.7 MG/DL (8.8-10.2); CARBON DIOXIDE LEVEL 29 MEQ/L (21-32); CHLORIDE LEVEL 103 MEQ/L (98-107); CREATININE FOR GFR 0.98 MG/DL (0.70-1.30); GLOMERULAR FILTRATION RATE > 60.0 (>49); GLUCOSE, FASTING 117 MG/DL (70-100); MAGNESIUM LEVEL 1.9 MG/DL (1.8-2.4); POTASSIUM SERUM 3.8 MEQ/L (3.5-5.1); SODIUM LEVEL 137 MEQ/L (136-145)
[2020-12-19 07:19] VITALS: BP 179/79
[2020-12-19] MEDS ORDERED: hydrALAZINE 20MG/ML 1ML VIAL (J0360 PER 20MG) IV PRN (07:50)
--- NOTE | 2020-12-19 09:01 | IPNPDOC ---
Subjective Date Seen The patient was seen on 12/19/20. Subjective Chief Complaint/HPI HPI: Pt was seen and examined at bedside this am. He is s/p day 2 from a reverse colostomy and has had about 10cc of light pink colored output from his SABIHA drain since yesterday evening. Pain is controlled on current regimen. Pt looks more comfortable this am and states that hes passing flatus but no BM yet. Hes tolerating his current mechanical soft diet. No acute events overnight. Denies any fever, chills, n/v/d, CP, SOB. PHYSICAL EXAM: vs: see below GEN: Obese male, laying in bed comfortably without any acute distress PULM: no wheezing, rhonci or rales CARDIO: No m/g/r appreciated; no crackles, no lower extr edema appreciated b ilaterally ABD: obese, soft, nontender, nondistended, hypoactive bowel sounds Extr: no clubbing, cyanosis or bruising appreciated LABS: see below IMAGING: see below ASSESSMENT AND PLAN: This is a 65 y/o M who is s/p day 2 from a robotic assisted lap colostomy reversal. He has miminal output from his SABIHA drain. The ostomy site is examined and has some brownish looking ischemic tissue around the site. No sites of obvious infection or pus/erythema noted. Will attempt to d/c the drain today. Wi ll transition to a low residue diet as tolerated and encourage OOB and ambulation with PT/OT. BP on the higher side, and primary managing. Assessment /Plan Plan/VTE VTE Prophylaxis Ordered?: Yes VS, I&O, 24H, Fishbone Vital Signs/I&O Vital Signs Date Time Temp Pulse Resp B/P (MAP) Pulse Ox O2 Delivery O2 Flow Rate FiO2 12/19/20 07:19 97.1 90 20 179/79 (112) 94 Room Air 12/19/20 04:32 2.0 I&O- Last 24 Hours up to 6 AM 12/19/20 06:00 Intake Total 2040 ml Output Total 1640 ml Balance 400 ml Laboratory Data 24H LABS Laboratory Tests 2 12/19/20 05:50: Immature Granulocyte % (Auto) 0.4, Neutrophils (%) (Auto) 79.3H, Lymphocytes (%) (Auto) 10.2L, Monocytes (%) (Auto) 9.4H, Eosinophils (%) (Auto) 0.4, Basophils (%) (Auto) 0.3, Neutrophils # (Auto) 6.2, Lymphocytes # (Auto) 0.8L, Monocytes # (Auto) 0.7, Eosinophils # (Auto) 0.0, Basophils # (Auto) 0.0, Nucleated Red Blood Cells % (auto) 0.0, Anion Gap 5L, Glomerular Filtration Rate > 60.0, Calcium Level 8.7L, Magnesium Level 1.9, Total Bilirubin 0.5, Aspartate Amino Transf (AST/SGOT) 18, Alanine Aminotransferase (ALT/SGPT) 17, Alkaline Phosphatase 68, Total Protein 7.0, Albumin 2.6L, Albumin/Globulin Ratio 0.6 CBC/BMP Laboratory Tests 12/19/20 05:50 GME ATTESTATION GME ATTESTATION My faculty preceptor for this patient encounter was physically present during the encounter and was fully available. All aspects of the patient interview, examination, medical decision making process, and medical care plan development were reviewed and approved by the faculty preceptor. The faculty preceptor is aware and concurs with the plan as stated in the body of this note and will attest to such by his/her cosignature. Valentina Thorne DO Dec 19, 2020 09:01
[2020-12-19] MEDS: ENOXAPARIN 40MG/0.4ML SYRINGE (J1650 PER 10MG) SC SCH (09:03)
[2020-12-19] MEDS: PERCOCET 5MG/325MG TAB PO PRN ×2 (09:04→17:54)
[2020-12-19] MEDS: PANTOPRAZOLE 40MG VIAL (C9113 PER 1) IV SCH (09:05)
[2020-12-19] MEDS: ALVIMOPAN 12 MG CAPSULE (ENTEREG) PO SCH ×2 (09:05→21:14)
[2020-12-19] MEDS: CHLORTHALIDONE 25 MG TAB PO SCH (10:29)
[2020-12-19 12:18] VITALS: BP 176/88
[2020-12-19] MEDS: IPRATROPIUM 0.5MG/ALBUTEROL 2.5MG INH SOL UD 3ML (DUONEB) NEB SCH ×2 (12:21→20:02)
[2020-12-19 16:00] VITALS: BP 176/94
--- NOTE | 2020-12-19 16:00 | IPNPDOC ---
Text Note Date of Service The patient was seen on 12/19/20. NOTE Subjective: No any acute events overnight. Patient stated that his abdominal pain improved. PHYSICAL EXAMINATION: VITAL SIGNS: Please see below. Objective: GENERAL APPEARANCE: NAD HEENT: no scleral icterus, no JVD, EOMI CARDIOVASCULAR: S1S2 LUNGS: Diminished lung sounds bilaterally ABDOMEN: soft & mildly tender w palpitation, obese, drainage in place with sang uinous discharge MUSCULOSKELETAL: no cyanosis, no swelling INTEGUMENT: no generalized pallor NEUROLOGICAL: cranial nerve function from 2-12 intact intact, follows commands, speech not dysarthric ASSESSMENT/PLAN: Patient is 65 years old male with past history of hypertension, advanced COPD on 2 L of oxygen at home, hyperlipidemia, diverticulitis, obesity, laryngeal cancer status post radiation presented to the hospital for elective reversal robotic- assisted colostomy. His colostomy was placed for perforated colon secondary to diverticulitis in fall 2019. Patient tolerated procedure well. When I saw him in the room patient stated that he had mild abdominal pain in the area of drainage and some shortness of breath. Patient denied fever, chills, nausea, vomiting, chest pain or palpitations Status post reversal colostomy day 2 Surgical team follows him Antibiotics therapy per surgical team Pain management. I intensified pain management with tramadol. Most likely elevation of blood pressure due to pain Coronary artery diseases, status post stent placement in 2015 Aspirin restarted Continue statin COPD/chronic hypoxemic respiratory failure Not in acute exacerbation Patient is on 2 L his baseline Continue inhalers, added DuoNeb Incentive spirometry, Acapella GERD Continue PPI Hypertension In the morning so blood pressure around 170 I increased the dose of amlodipine to 10 mg, added chlorthalidone and hydralazine 20 mg every 6 hours We'll check BNP CKD3 Kidney function at baseline Sleep apnea CPAP overnight VS,Fishbone, I+O VS, Fishbone, I+O Laboratory Tests 12/19/20 05:50 Vital Signs Date Time Temp Pulse Resp B/P (MAP) Pulse Ox O2 Delivery O2 Flow Rate FiO2 12/19/20 12:18 96.9 89 20 176/88 (117) 94 Room Air 12/19/20 04:32 2.0 I&O- Last 24 Hours up to 6 AM 12/19/20 05:59 Intake Total 2040 ml Output Total 1640 ml Balance 400 ml DROERICH BARTLETT DO Dec 19, 2020 16:00
[2020-12-19 16:26] LABS: NT-PRO BNP 459 PG/ML (<125)
[2020-12-19] MEDS: **hydrALAZINE** 10 MG TAB PO SCH (16:52)
[2020-12-19] MEDS: ASPIRIN 81MG ENTERIC TABLET PO SCH (16:52)
[2020-12-19] MEDS ORDERED: **hydrALAZINE** 10 MG TAB PO SCH (18:00)
[2020-12-19 20:00] VITALS: BP 174/95
[2020-12-19] MEDS: ATORVASTATIN 20 MG TAB PO SCH (21:14)
[2020-12-19] MEDS: traMADol 50 MG TAB PO PRN (21:16)
[2020-12-20] VITALS: BP 151/88
[2020-12-20] MEDS: PERCOCET 5MG/325MG TAB PO PRN ×3 (00:58→23:36)
[2020-12-20] MEDS: **hydrALAZINE** 10 MG TAB PO SCH ×5 (01:02→23:31)
[2020-12-20] MEDS: IPRATROPIUM 0.5MG/ALBUTEROL 2.5MG INH SOL UD 3ML (DUONEB) NEB SCH ×4 (02:13→20:05)
[2020-12-20 04:00] VITALS: BP 180/94
[2020-12-20] MEDS: KETOROLAC 30 MG/ML 1ML VIAL IV SCH ×4 (04:55→22:36)
[2020-12-20 06:10] LABS: BASO % 0.4 % (0.0-1.0); EOS # 0.1 10^3/uL (0.0-0.5); EOS % 1.1 % (0.0-3.0); HEMATOCRIT 37.6 % (42.0-52.0); HEMOGLOBIN 11.7 g/dl (13.5-17.5); LYMPH # 0.8 10^3/uL (1.5-5.0); LYMPH % 10.2 % (24.0-44.0); MEAN CORPUSCULAR HEMOGLOBIN 28.8 pg (27.0-33.0); MEAN CORPUSCULAR HGB CONC 31.1 g/dl (32.0-36.5); MEAN CORPUSCULAR VOLUME 92.6 fl (80.0-96.0); MONO # 0.7 10^3/uL (0.0-0.8); MONO % 9.1 % (2.0-8.0); NEUTROPHILS # 6.2 10^3/uL (1.5-8.5); NEUTROPHILS % 78.4 % (36.0-66.0); PLATELET COUNT, AUTOMATED 218 10^3/uL (150-450); RED BLOOD COUNT 4.06 10^6/uL (4.30-6.10); WHITE BLOOD COUNT 7.9 10^3/uL (4.0-10.0)
[2020-12-20 06:26] LABS: BLOOD UREA NITROGEN 12 MG/DL (7-18); CALCIUM LEVEL 8.4 MG/DL (8.8-10.2); CARBON DIOXIDE LEVEL 32 MEQ/L (21-32); CHLORIDE LEVEL 102 MEQ/L (98-107); CREATININE FOR GFR 0.97 MG/DL (0.70-1.30); GLOMERULAR FILTRATION RATE > 60.0 (>49); GLUCOSE, FASTING 143 MG/DL (70-100); POTASSIUM SERUM 3.6 MEQ/L (3.5-5.1); SODIUM LEVEL 139 MEQ/L (136-145)
[2020-12-20 07:27] VITALS: BP 152/91
[2020-12-20] MEDS ORDERED: POTASSIUM CHLORIDE 10 MEQ SR TABLET PO ONE (09:00)
[2020-12-20] MEDS: PANTOPRAZOLE 40MG VIAL (C9113 PER 1) IV SCH (09:17)
[2020-12-20] MEDS: ENOXAPARIN 40MG/0.4ML SYRINGE (J1650 PER 10MG) SC SCH (09:17)
[2020-12-20] MEDS: ASPIRIN 81MG ENTERIC TABLET PO SCH (09:18)
[2020-12-20] MEDS: ALVIMOPAN 12 MG CAPSULE (ENTEREG) PO SCH ×2 (09:18→20:02)
[2020-12-20] MEDS: CHLORTHALIDONE 25 MG TAB PO SCH (09:18)
--- NOTE | 2020-12-20 10:08 | IPNPDOC ---
Text Note Date of Service The patient was seen on 12/20/20. NOTE No acute events overnight. He is tolerating diet and having flatus. No BM yet. Pain is controlled. VSSAF NAD abd - soft, TTP appropriate, incisions c/d/i A) 65y/o male s/p colostomy reversal P) reg diet ambulate IS plan on d/c home after a BM. Puneet Baltazar DO VS,Fishbone, I+O VS, Fishbone, I+O Laboratory Tests 12/20/20 05:16 Vital Signs Date Time Temp Pulse Resp B/P (MAP) Pulse Ox O2 Delivery O2 Flow Rate FiO2 12/20/20 09:18 107 152/91 12/20/20 07:27 96.4 18 96 12/20/20 01:30 Nasal Cannula 2.0 I&O- Last 24 Hours up to 6 AM 12/20/20 06:00 Intake Total 1815 ml Output Total 3650 ml Balance -1835 ml SAIDA BALTAZAR DO December 20, 2020 10:08
[2020-12-20] MEDS ORDERED: PERCOCET PO (10:11)
--- NOTE | 2020-12-20 11:48 | IPNPDOC ---
Text Note Date of Service The patient was seen on 12/20/20. NOTE Subjective: No any acute events overnight. Patient stated that his breathing b aurea and his abdominal pain improved. His systolic blood pressure was elevated in the morning to 175 PHYSICAL EXAMINATION: VITAL SIGNS: Please see below. Objective: GENERAL APPEARANCE: NAD HEENT: no scleral icterus, no JVD, EOMI CARDIOVASCULAR: S1S2 LUNGS: Diminished lung sounds bilaterally ABDOMEN: soft & mildly tender w palpitation, obese, drainage in place with sanguinous discharge MUSCULOSKELETAL: no cyanosis, no swelling INTEGUMENT: no generalized pallor NEUROLOGICAL: cranial nerve function from 2-12 intact intact, follows commands, speech not dysarthric ASSESSMENT/PLAN: Patient is 65 years old male with past history of hypertension, advanced COPD on 2 L of oxygen at home, hyperlipidemia, diverticulitis, obesity, laryngeal cancer status post radiation presented to the hospital for elective reversal robotic- assisted colostomy. His colostomy was placed for perforated colon secondary to diverticulitis in fall 2019. Patient tolerated procedure well. When I saw him in the room patient stated that he had mild abdominal pain in the area of drainage and some shortness of breath. Patient denied fever, chills, nausea, vomiting, chest pain or palpitations Status post reversal colostomy day 3 Surgical team follows him Antibiotics therapy per surgical team Pain management. Surgical team planed to discharge after bowel movements Coronary artery diseases, status post stent placement in 2015 Aspirin restarted Continue statin COPD/chronic hypoxemic respiratory failure Not in acute exacerbation Patient is on 2 L his baseline Continue inhalers, added DuoNeb Incentive spirometry, Acapella GERD Continue PPI Hypertension In the morning so blood pressure around 170. After morning pills his blood pressure stabilized I increased the dose of amlodipine to 10 mg, added chlorthalidone and hydralazine 20 mg every 6 hours Continue to monitor CKD3 Kidney function at baseline Sleep apnea CPAP overnight VS,Fishbone, I+O VS, Fishbone, I+O Laboratory Tests 12/20/20 05:16 Vital Signs Date Time Temp Pulse Resp B/P (MAP) Pulse Ox O2 Delivery O2 Flow Rate FiO2 12/20/20 11:43 195/97 12/20/20 09:18 107 12/20/20 07:27 96.4 18 96 12/20/20 01:30 Nasal Cannula 2.0 I&O- Last 24 Hours up to 6 AM 12/20/20 06:00 Intake Total 1815 ml Output Total 3650 ml Balance -1835 ml ERICH WEEKS DO December 20, 2020 11:48
[2020-12-20 12:00] VITALS: BP 159/88
[2020-12-20 16:00] VITALS: BP 156/74
[2020-12-20] MEDS ORDERED: MOM 30ML SUSPENSION UDC PO ONE (19:25)
[2020-12-20 19:49] VITALS: BP 175/94
[2020-12-20] MEDS: ATORVASTATIN 20 MG TAB PO SCH (20:02)
[2020-12-21] VITALS: BP 146/85
[2020-12-21] MEDS: IPRATROPIUM 0.5MG/ALBUTEROL 2.5MG INH SOL UD 3ML (DUONEB) NEB SCH ×2 (02:41→07:06)
[2020-12-21 04:00] VITALS: BP 159/94
[2020-12-21] MEDS: KETOROLAC 30 MG/ML 1ML VIAL IV SCH (04:37)
[2020-12-21] MEDS: **hydrALAZINE** 10 MG TAB PO SCH (05:26)
[2020-12-21 06:58] VITALS: BP 148/88
[2020-12-21 07:24] LABS: ALBUMIN 2.7 GM/DL (3.2-5.2); ALT/SGPT 32 U/L (12-78); BILIRUBIN,TOTAL 0.3 MG/DL (0.2-1.0); BLOOD UREA NITROGEN 13 MG/DL (7-18); CALCIUM LEVEL 9.4 MG/DL (8.8-10.2); CARBON DIOXIDE LEVEL 33 MEQ/L (21-32); CHLORIDE LEVEL 101 MEQ/L (98-107); CREATININE FOR GFR 1.06 MG/DL (0.70-1.30); GLOMERULAR FILTRATION RATE > 60.0 (>49); GLUCOSE, FASTING 117 MG/DL (70-100); MAGNESIUM LEVEL 2.2 MG/DL (1.8-2.4); POTASSIUM SERUM 4.1 MEQ/L (3.5-5.1); SODIUM LEVEL 140 MEQ/L (136-145); TOTAL PROTEIN 6.3 GM/DL (6.4-8.2)
[2020-12-21 09:16] VITALS: BP 148/88
[2020-12-21] MEDS: PANTOPRAZOLE 40MG VIAL (C9113 PER 1) IV SCH (09:16)
[2020-12-21] MEDS: CHLORTHALIDONE 25 MG TAB PO SCH (09:16)
[2020-12-21] MEDS: ALVIMOPAN 12 MG CAPSULE (ENTEREG) PO SCH (09:16)
[2020-12-21] MEDS: ASPIRIN 81MG ENTERIC TABLET PO SCH (09:16)
[2020-12-21] MEDS: PERCOCET 5MG/325MG TAB PO PRN (09:18)
[2020-12-21] MEDS: ENOXAPARIN 40MG/0.4ML SYRINGE (J1650 PER 10MG) SC SCH (09:20)
[2020-12-21] MEDS ORDERED: AMLO1TAB25 PO (10:36)
--- NOTE | 2020-12-21 13:35 | ECGEPIP ---
[facility] Test Date: 2020-12-21 Pat Name: MAYCOL PA Department: Room: [place] [address] Gender: Male Ophthalmic Surgical Assistant: norberto : [id number] Requested By: ERICH WEEKS Order Number: [id number] Reading MD: Janet Barber Measurements Intervals [place] Rate: 100 P: 36 [place]: 178 QRS: 7 QRSD: 102 T: 29 QT: 386 QTc: 497 Interpretive Statements Normal sinus rhythm RATE SLOWER Prolonged QTC NEW PRWP NEW T ABN V2 AGAIN SEEN POSSIBLE OLD IWMI- MORE PROMINENT Q AVF COPD P PATTERN C/W 08/18/20 Electronically Signed on 12-21-2020 13:35:41 EDT by Janet Barber
--- NOTE | 2020-12-22 10:08 | DS.PDOC ---
Discharge Summary General Date of Admission Dec 17, 2020 at 06:16 Date of Discharge December 21, 2020 Attending Physician: FELA LANGE MD Specialist/Consultants Involve: ERICH WEEKS DO Discharge Summary PROCEDURES PERFORMED DURING STAY: Robotic assisted laparoscopic completion sigmoid colectomy, reversal of colostomy, laparoscopic splenic flexure takedown. . ADMITTING DIAGNOSES: 1. history of perforated diverticulitis 2. colostomy status 3. moderate obesity 4. obstructive sleep apnea 5. 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 DISCHARGE DIAGNOSES: 1. . COMPLICATIONS/CHIEF COMPLAINT: Colostomy Status, History Of Diverticulitis With... HISTORY OF PRESENT ILLNESS: . HOSPITAL COURSE: . DISCHARGE MEDICATIONS: Please see below. ALLERGIES: Please see below. PHYSICAL EXAMINATION ON DISCHARGE: VITAL SIGNS: Please see below. GENERAL: HEENT: NECK: CARDIOVASCULAR EXAMINATION: RESPIRATORY EXAMINATION: ABDOMINAL EXAMINATION: EXTREMITIES: SKIN: NEUROLOGICAL EXAMINATION: PSYCHIATRIC EXAMINATION: LABORATORY DATA: Please see below. IMAGING: PROGNOSIS: ACTIVITY: [As tolerated]. DIET: DISCHARGE PLAN: DISPOSITION: 01 Home, Self-Care. DISCHARGE INSTRUCTIONS: 1. Advance diet as tolerated 2. Light activity until reevaluated 3. Follow up in clinic in 2 weeks. ITEMS TO FOLLOWUP ON ON OUTPATIENT: 1. path shows diverticulosis, diverticulitis 2. bowel movements DISCHARGE CONDITION: [Stable]. TIME SPENT ON DISCHARGE: Greater than minutes. Vital Signs/I&Os Vital Signs Date Time Temp Pulse Resp B/P (MAP) Pulse Ox O2 Delivery O2 Flow Rate FiO2 12/21/20 10:00 17 12/21/20 09:16 88 148/88 12/21/20 06:58 97.5 93 Nasal Cannula 2.0 I&O- Last 24 Hours up to 6 AM 12/22/20 05:59 Intake Total 830 ml Output Total 600 ml Balance 230 ml Discharge Medications Scheduled Amlodipine Besylate (Amlodipine Besylate) 10 Mg Tablet, 10 MG PO DAILY Aspirin (Aspirin EC) 81 Mg Tablet.dr, 81 MG PO DAILY, (Reported) Atorvastatin Calcium (Lipitor) 20 Mg Tab, 20 MG PO QHS, (Reported) Famotidine (Famotidine) 40 Mg Tablet, 40 MG PO DAILY, (Reported) NEW MED, HAS NOT STARTED Furosemide (Furosemide) 20 Mg Tablet, 20 MG PO DAILY, (Reported) Scheduled PRN Albuterol Sulfate (Ventolin Hfa) 18 Gm Hfa.aer.ad, 2 PUFFS INH QID PRN for SHORTNESS OF BREATH, (Reported) Clobetasol Propionate (Temovate) 15 Gm Oint...g., 1 DOSE TOP BID PRN for DRY SKIN, (Reported) APPLIES TO HANDS FOR PSORIASIS Formoterol Fumarate (Perforomist) 20 Mcg/2 Ml Vial.neb, 20 MCG INH BIDP PRN for SHORTNESS OF BREATH, (Reported) Oxycodone HCl/Acetaminophen (Oxycodone-Acetaminophen 5-325) 1 Each Tablet, 2 TAB PO Q6H PRN for PAIN, (Reported) Oxycodone/Acetaminophen (Oxycodone-Acetaminophen 5-325) 1 Each Tablet, 1 TAB PO Q6H PRN for SEVERE PAIN (PS 8-10) Urea (Urea) 85 Gm Cream..g., 1 DOSE EXT DAILY PRN for DRY SKIN, (Reported) USES ON HANDS Allergies Coded Allergies: MARIA DE JESUS Inhibitors (Verified Adverse Reaction, Intermediate, hyperkalemia, 12/17/20) adenosine (Verified Adverse Reaction, Intermediate, cardiac arrest, 12/17/20) angiotensin II acetate, human (Verified Adverse Reaction, Intermediate, hyperkalemia, 12/17/20) losartan (Verified Adverse Reaction, Intermediate, ARBs = HYPERKALEMIA, 12/17/20) morphine (Verified Adverse Reaction, Mild, itching, 12/17/20) FELA LANGE MD December 22, 2020 10:08
== END 2020-12-21 15:18 | disposition home or self-care (01) | DRG 330 ==
LOC: M OR 06:16 → M PCU 15:54
PROVIDERS: ADMIT Surgery; ATTEND Surgery
PROC: 0DQN4ZZ Repair Sigmoid Colon, Percutaneous Endoscopic Approach (ICD-10-PCS; 2020-12-17)
PROC: 8E0W4CZ Robotic Assisted Procedure of Trunk Region, Percutaneous Endoscopic Approach (ICD-10-PCS; 2020-12-17)
PROC: 0DBN4ZZ Excision of Sigmoid Colon, Percutaneous Endoscopic Approach (ICD-10-PCS; principal; 2020-12-17 07:30)
DX: Z43.3 Encounter for attention to colostomy (principal); J96.11 Chronic respiratory failure with hypoxia; I12.9 Hypertensive chronic kidney disease with stage 1 through stage 4 chronic kidney disease, or unspecified chronic kidney disease; N18.30 Chronic kidney disease, stage 3 unspecified; J44.9 Chronic obstructive pulmonary disease, unspecified; K76.0 Fatty (change of) liver, not elsewhere classified; G47.33 Obstructive sleep apnea (adult) (pediatric); E66.9 Obesity, unspecified; Z79.82 Long term (current) use of aspirin; Z79.899 Other long term (current) drug therapy; Z88.5 Allergy status to narcotic agent; Z88.8 Allergy status to other drugs, medicaments and biological substances; Z68.38 Body mass index [BMI] 38.0-38.9, adult; E78.5 Hyperlipidemia, unspecified; K21.9 Gastro-esophageal reflux disease without esophagitis; Z87.891 Personal history of nicotine dependence; Z95.2 Presence of prosthetic heart valve; Z96.643 Presence of artificial hip joint, bilateral; Z85.21 Personal history of malignant neoplasm of larynx; K57.30 Diverticulosis of large intestine without perforation or abscess without bleeding; Z92.3 Personal history of irradiation; I25.10 Atherosclerotic heart disease of native coronary artery without angina pectoris; J37.0 Chronic laryngitis

== ENCOUNTER → 2020-12-23 | Outpatient (CLI) | payer MEDICARE, BC ==
[~2020-12-23] MED LIST changes: +FURO20TA2 PO; +GASTROGRAFIN SOLUTION 30ML (Q9963) As Ordered ONE; +ISOVUE-370 76% 100ML VIAL As Ordered ONE
--- NOTE | 2020-12-23 16:58 | REP ---
INDICATION: ABD PAIN, NAUSEA/VOMITING,POST OP COLOSTOMY REVERS. COMPARISON: 06/12/2020 TECHNIQUE: Axial contrast-enhanced images from the lung bases to the pubic symphysis using oral and 100 cc Isovue 370 intravenous contrast material. Precontrast and delayed images of the abdomen obtained along with coronal and sagittal reformations. This CT examination was performed using the following dose reduction techniques: Automated exposure control, adjustment of mA and/or kv according to the patient's size, and the use of iterative reconstruction technique. FINDINGS: Liver, spleen, pancreas, gallbladder, and bilateral adrenal glands are normal. Kidneys demonstrate age-related cortical scarring and bilateral simple appearing cysts measuring up to 2.5 cm in the right kidney and 2.0 cm in the left kidney. There is no evidence for acute bowel obstruction or perforation. Normal terminal ileum and appendix are identified in the right lower quadrant. Scattered colonic diverticula noted without acute diverticulitis. Patient appears to be status post reversal of colostomy with reanastomosis at the distal sigmoid level. There is a moderate amount of inflammatory change and fluid/granulation tissue involving the left rectus muscle and extending to the skin surface at the site of prior colostomy. There also appears to be inflammatory stranding of the mesentery within the pelvis surrounding the area of anastomosis. These findings are suspicious for postsurgical changes along with acute infectious/inflammatory process. There is no free air to suggest perforation and no discrete drainable collection/abscess is identified. Further evaluation of the pelvis is limited due to metallic streak artifact from bilateral hip prosthesis but collapsed bladder is identified along with age-appropriate prostate gland. No adenopathy. Abdominal aorta and vasculature without aneurysm or dissection. Musculoskeletal structures demonstrate age-related changes. Lung bases are relatively clear. IMPRESSION: Recent reversal of colostomy including reanastomosis at the distal sigmoid level. Fluid and inflammatory stranding at the site of prior colostomy through the left anterior abdominal wall along with inflammatory stranding in the pelvis surrounding the area of anastomosis. These findings are nonspecific and may represent recent postsurgical changes although associated infectious/inflammatory process cannot be excluded. No free air to suggest perforation. No obstruction. No drainable collection/abscess. <Electronically signed by Nathaniel Cleary > 12/23/20 [id number]
== END ==
LOC: M RAD 14:53
PROVIDERS: ATTEND Physician Assistant
DX: R10.9 Unspecified abdominal pain (principal); R11.2 Nausea with vomiting, unspecified
CPT/HCPCS: 74178; Q9963; Q9967

== ENCOUNTER → 2021-01-15 | Outpatient (CLI) | payer MEDICARE, BC ==
[~2021-01-15] MED LIST changes: -GASTROGRAFIN SOLUTION 30ML (Q9963) As Ordered ONE; -ISOVUE-370 76% 100ML VIAL As Ordered ONE
[2021-01-15 10:50] LABS: FREE T4 1.4 NG/DL (0.76-1.46); THYROID STIMULATING HORMONE 1.94 uIU/ML (0.358-3.740)
== END ==
LOC: M ONCR 09:45
PROVIDERS: ATTEND General Practice
DX: C32.1 Malignant neoplasm of supraglottis (principal); Z79.899 Other long term (current) drug therapy

== ENCOUNTER → 2021-01-15 | Outpatient (CLI) | payer MEDICARE, BC ==
--- NOTE | 2021-01-15 11:06 | RADONC ---
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 He completed RT 70 Gy in 35 fractions on 11/27/19. He is here for surveillance and survivorship care. Diagnosis/Treatment History Oncologic History Remote history of recurrent epiglottitis at one point requiring temporary tracheostomy. 2019 Developed odynophagia and referred to ENT 07/10/19 CT neck without obvious masses or adenopathy 07/16/19 DL and biopsy of laryngeal surface of epiglottis showing SCC 08/14/19 PET-CT showing uptake in the epiglottic primary no nodes [id number] stage II 09/25/19-11/27/19 RT alone 70 Gy in 35 fractions 04/08/20 CT neck negative Survivorship: Test Due Next Last result Notes TSH, T4 6m post-tx, then q1y Due today Carotid US q10 y post-tx 2028 Smoking cessation Assess annually if applicable Quit [address] q1y once CR confirmed Due today CBC,CMP, Lipids q1y Has cardiology follow up will defer Interval History Foster has a number of complaints. He had an ostomy reversal surgery with Dr. Falcon 3 weeks ago (had a complicated colonoscopy requiring diversion) he has since been constipated but generally this is improving. He has persistent and intractable fatigue which has been present for several months. No clear attribution for this. Also feels cold all the time. 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 Same is true of his opinion of PETROPHYSICIST therapy for swallowing which has been fraught since treatment. He is able to drink water without choking but not much else, feels food is getting trapped in the lower neck. He has lost 30+ lbs in recent months. He has persistent dry mouth. No pain in the mouth or throat per se. Has hearing loss which predates cancer diagnosis, being fitted for hearing aids soon. He has persistent dysgeusia. Wears nocturnal O2 with CPAP. Has been compliant with CPAP in recent months. Current Therapy Surveillance Stage Stage II supraglottic larynx SCC [id number] Social History: Former 50+ pack year smoker quit 2018 Does not drink Allergies / Meds Allergies: Coded Allergies: MARIA DE JESUS Inhibitors (Verified Adverse Reaction, Intermediate, hyperkalemia, 12/17/20) adenosine (Verified Adverse Reaction, Intermediate, cardiac arrest, 12/17/20) angiotensin II acetate, human (Verified Adverse Reaction, Intermediate, hyperkalemia, 12/17/20) losartan (Verified Adverse Reaction, Intermediate, ARBs = HYPERKALEMIA, 12/17/20) morphine (Verified Adverse Reaction, Mild, itching, 12/17/20) Home Meds Active Scripts Amlodipine Besylate (Amlodipine Besylate) 10 Mg Tablet, 10 MG PO DAILY for 30 Days, #30 TAB Prov:ERICH WEEKS DO 12/21/20 Oxycodone/Acetaminophen (Oxycodone-Acetaminophen 5-325) 1 Each Tablet, 1 TAB PO Q6H PRN for SEVERE PAIN (PS 8-10) MDD 4 for 7 Days, #20 TAB Prov:SAIDA GUDINO DO 12/20/20 [oxygen] No Conflict Check, %, #2 oxygen 2LPM for dyspnea ICD10- dyspnea: COPD: Prov:ARLIN RYAN PIPEFITTER HELPER 08/18/20 Reported Medications Formoterol Fumarate (Perforomist) 20 Mcg/2 Ml Vial.neb, 20 MCG INH BIDP PRN for SHORTNESS OF BREATH, NEB 12/02/20 Albuterol Sulfate (Ventolin Hfa) 18 Gm Hfa.aer.ad, 2 PUFFS INH QID PRN for SHORTNESS OF BREATH 06/06/20 Famotidine (Famotidine) 40 Mg Tablet, 40 MG PO DAILY, TAB NEW MED, HAS NOT STARTED 06/06/20 Urea (Urea) 85 Gm Cream..g., 1 DOSE EXT DAILY PRN for DRY SKIN USES ON HANDS 04/08/20 Clobetasol Propionate (Temovate) 15 Gm Oint...g., 1 DOSE TOP BID PRN for DRY SKIN APPLIES TO HANDS FOR PSORIASIS 04/08/20 Aspirin (Aspirin EC) 81 Mg Tablet.dr, 81 MG PO DAILY 04/08/20 Oxycodone HCl/Acetaminophen (Oxycodone-Acetaminophen 5-325) 1 Each Tablet, 2 TAB PO Q6H PRN for PAIN 11/14/19 Atorvastatin Calcium (Lipitor) 20 Mg Tab, 20 MG PO QHS, TAB 01/02/14 Discontinued Reported Medications Furosemide (Furosemide) 20 Mg Tablet, 20 MG PO DAILY 12/17/20 Review of Systems Review of Systems Constitutional: Reports: Fatigue, Weight Loss; Denies: Chills, Fever Eyes: Denies: Pain HEENT: Reports: Dysphagia; Denies: Head Aches, Ear Pain, Sore Throat Skin: Denies: Rash Pulmonary: Reports: Cough; Denies: Dyspnea Cardiovascular: Denies: Chest Pain, Palpitations Gastrointestinal: Reports: Abdominal Pain, Constipation; Denies: Nausea Genitourinary: Denies: Dysuria Hematologic: Denies: Bruising Endocrine: Reports: Cold Intolerance Musculoskeletal: Denies: Neck pain, Back pain Neurological: Denies: Weakness, Numbness Psych: Reports: Mood Normal Physical Examination Vital Signs Wt 238 lbs (from 266 05/07/20) T 97.4 P 86 RR 20 BP 190/103 O2 97% Pain 0 Fatigue 2 General Exam: Positive: Alert, Cooperative, No Acute Distress Eye Exam: Positive: PERRLA, EOMI ENT EXAM: Positive: Atraumatic, Mucous membr. moist/pink (Complete oral cavity exam performed: He is edentulous, he has pink well hydrated mucosa throughout, there are no visible mucosal or pharyngeal lesions, there are no palpable buccal, gingival, or FOM lesions on bimanual exam. Uvula is blunted/stunted), Tongue Midline (Thinning hair) Neck Exam: Positive: Supple (There is submental lymphedema. ), Lymphadenopathy (There are no palpable cervical lymphnodes. There is preserved laryngeal crepitus. The thyroid cartilage elevates appropriately with swallowing); Negative: Thyromegaly Chest Exam: Positive: Clear to auscultation Heart Exam: Positive: Rate Normal Abdomen Exam: Positive: Soft, Other (There are well healing ostomy-reversal and laparoscopic port incisions. No redness or induration); Negative: Tenderness Extremity Exam: Negative: Edema (No LE edema) Neuro Exam: Positive: Normal Gait, Normal Speech, Cranial Nerves 3-12 NL Psych Exam: Positive: Mental status NL Other Physical Findings Laryngoscopy: Patient provided verbal consent to be scoped. Cetacaine was introduced in the right nostril for anesthesia. The scope was introduced and easily passed through the nasal passage to the nasopharynx. The nasopharynx was normal appearing, mucosa pink without lesions. The posterior pharyngeal wall was visualized, it had no adherent mucus and pink mucosa. The scope was passed inferiorly to the oropharynx. The BL tongue bases, and vallecula were visualized and there were no lesions apparent. The BL pyriform sinuses were clear. With phonation the larynx was freely mobile. The epiglottic rim was blunt, there were no lesion of the lingual epiglottic surface and no asymmetry to speak of. The scope was withdrawn without incident and the patient tolerated the exam well. Diagnostic and Laboratory Diagnostic Review Radiologic images, relevant labs and pathology reports were personally reviewed and discussed with Mr. Mishra. Assessment and Plan Impression Assessment Mr. 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 He completed RT 70 Gy in 35 fractions on 11/27/19. He is here for surveil mely and survivorship care. He is struggling with a number of treatment related sequelae. For his dysphagia I recommended ongoing follow up with PETROPHYSICIST, he however declined this. In lieu of PETROPHYSICIST recs, I will order a barium swallow study to establish the e tiology of his dysphagia, in the meantime I instructed him to continue a soft food diet and to also focus on supplemental nutrition with protein calorie dense foods or products such as dairy, ensure or boost. For his persistent fatigue, he may have hypothyroidism related to treatment and TFTs have not been checked since 2019, therefore I will repeat these today. We discussed thyroid replacement if his labs are abnormal. Other possible causes of his persistent fatigue could be his ERIBERTO, although he reports CPAP compliance or a cardiac cause for which he reports he has follow up. He is also due for an annual screening CT chest given his age and significant lifetime smoking history. I will order this. He has close ENT follow up as well, but given his issues, I will see him in 3 months or sooner if needed. Performance Status ECOG 2 Plan TFTs today Barium swallow to evaluate dysphagia etiology CT screening chest Follow up in 3 months Mr. Mishra was encouraged to call with questions or concerns in the interim period. Billing Statement Total time of [38] minutes was spent preparing for the visit [3], obtaining HPI [6], examining the patient [6], reviewing diagnostic tests [3], discussing manag ement options [10], coordinating care [4], and writing this note [6]. GEORGIE COURTNEY MD January 15, 2021 11:06
== END ==
LOC: M ONCR 08:57
PROVIDERS: ATTEND General Practice
DX: C32.1 Malignant neoplasm of supraglottis (principal); Z79.899 Other long term (current) drug therapy
CPT/HCPCS: 36415; 84439; 84443; G0463

== ENCOUNTER → 2021-02-04 | Outpatient (CLI) | payer MEDICARE, BC ==
[~2021-02-04] MED LIST changes: +E-Z-GAS II EFFERVESCENT PACKET (SODIUM BICARB./CITRIC ACID/SIMETHICONE) As Ordered ONE; +E-Z-HD 98% w/w 340GM SUSP BTL As Ordered ONE; +E-Z-PAQUE 96% w/w SUSP 176GM BTL As Ordered ONE
--- NOTE | 2021-02-04 17:18 | REP ---
INDICATION: DYSPHAGIA, POST CHEMO AND RADIATION. COMPARISON: None TECHNIQUE: This procedure was performed by Susie Trejo [facility], under the direct supervision of Dr. Marley. Images were reviewed with Dr. Marley prior to dictation. Liquid barium and gas producing crystals were given in the erect position, as well as liquid barium in the prone oblique position in order to perform a double contrast esophagram examination. FINDINGS: A single view PA chest x-ray is submitted as a lithographic platemaker film. The superior mediastinal structures are midline. The heart size is within normal limits. The lungs are clear. The oral and pharyngeal stages of deglutition were unremarkable. Cricopharyngeal hyperplasia was visualized. Esophageal transport is prompt and efficient and there is no evidence of esophagitis, stricture, or mucosal ring. There is evidence of a small hiatal hernia. There was no gastroesophageal reflux noted . IMPRESSION: 1. Small hiatal hernia. 0.2 minutes of fluoroscopy time was utilized for this procedure. Some fluoroscopic images are performed with last image hold technology. These images require no additional radiation. <Electronically signed by Susie Trejo > 02/04/21 1511 <Electronically signed by Lupillo Marley > 02/04/21 [id number]
== END ==
LOC: M RAD 08:31
PROVIDERS: ATTEND General Practice
DX: R13.19 Other dysphagia (principal); C32.1 Malignant neoplasm of supraglottis

== ENCOUNTER → 2021-03-06 | Outpatient (CLI) | payer MEDICARE, BC ==
[~2021-03-06] MED LIST changes: -E-Z-GAS II EFFERVESCENT PACKET (SODIUM BICARB./CITRIC ACID/SIMETHICONE) As Ordered ONE; -E-Z-HD 98% w/w 340GM SUSP BTL As Ordered ONE; -E-Z-PAQUE 96% w/w SUSP 176GM BTL As Ordered ONE
--- NOTE | 2021-03-06 11:16 | REPVR ---
PROCEDURE INFORMATION: Exam: CT Neck With Contrast Exam date and time: 03/06/2021 9:19 AM Age: 65 years old Clinical indication: Neck pain; Additional info: Malignant neoplasm of supraglottis TECHNIQUE: Imaging protocol: Computed tomography images of the neck with contrast. Radiation optimization: All CT scans at this facility use at least one of these dose optimization techniques: automated exposure control; mA and/or kV adjustment per patient size (includes targeted exams where dose is matched to clinical indication); or iterative reconstruction. Contrast material: ISOVUE 370; Contrast volume: 75 ml; Contrast route: INTRAVENOUS (IV); COMPARISON: CT Neck with contrast 08/18/2020 2:49 PM FINDINGS: Orbital cavity: Bilateral globe proptosis is again demonstrated. Nasopharynx: Unremarkable. Oropharynx: The oropharynx demonstrates diffuse mucosal space edema. Hypopharynx: Hypopharynx demonstrates diffuse mucosal space edema. Larynx: Unremarkable. Mildly edematous epiglottis in a background of diffuse mucoid regional mucosal space edema. Retropharyngeal space: Mild retropharyngeal edema. No evidence of retropharyngeal abscess. Submandibular/Parotid glands:The left submandibular gland appears mildly inflamed. Thyroid: Normal. No enlarged or calcified nodules. Lymph nodes: No pathologically enlarged lymph nodes. Trachea: Visualized trachea is unremarkable. Lungs: Unremarkable as visualized. Bones/joints: Moderate cervical spine degenerative changes, for example disc height loss and spondylosis with uncovertebral arthropathy at C5-C6 and C6-C7 and degenerative changes at C1-C2. Facet arthropathy is severe on the left at C4-C5. Anterior subluxation of the temporomandibular joints may reflect TMJ dysfunction. Vasculature: Carotid bifurcation atherosclerosis, in particular calcified atherosclerosis of the proximal left ICA. Soft tissues: Markers are placed around the submandibular region. There is edema in the subcutaneous fat. No discrete abscess identified. IMPRESSION: 1. Submental soft tissue edema suggesting cellulitis. The left submandibular gland appears mildly inflamed suggesting sialadenitis. No evidence of soft tissue abscess. 2. No evidence of discrete mass. There is diffuse oropharyngeal and hypopharyngeal mucosal space edema which could be treatment related or could reflect an infectious pharyngitis. Please correlate with the clinical scenario. Electronically signed by: Nalini Flores On 03/06/2021 11:16:26 AM
== END ==
LOC: M RAD 08:43
PROVIDERS: ATTEND Plastic Surgery Surgery of the Hand
DX: C32.1 Malignant neoplasm of supraglottis (principal); D17.0 Benign lipomatous neoplasm of skin and subcutaneous tissue of head, face and neck; R93.89 Abnormal findings on diagnostic imaging of other specified body structures
CPT/HCPCS: 70491; 71271; Q9967

== ENCOUNTER → 2021-03-06 | Outpatient (CLI) | payer MEDICARE, BC ==
[~2021-03-06] MED LIST changes: +ISOVUE-370 76% 100ML VIAL As Ordered ONE
--- NOTE | 2021-03-06 09:29 | REP ---
INDICATION: FORMER HEAVY SMOKER COMPARISON: None. TECHNIQUE: Axial noncontrast images from the thoracic inlet to the upper abdomen using low-dose lung screening technique (LDCT). FINDINGS: Bilateral lung baez are well aerated and demonstrate subtle scattered stable chronic changes. No acute consolidation, suspicious nodule or mass. No effusion. No pneumothorax. Tracheobronchial tree is patent. Mediastinum, surrounding musculoskeletal structures, and limited upper abdomen are grossly stable. IMPRESSION: Lung-RADS category 1. No suspicious nodule or mass lesion. Management recommendations include annual low-dose CT surveillance. <Electronically signed by Nathaniel Cleary > 03/06/21 [id number]
== END ==
LOC: M RAD 08:44
PROVIDERS: ATTEND General Practice
DX: Z12.2 Encounter for screening for malignant neoplasm of respiratory organs (principal); Z87.891 Personal history of nicotine dependence
CPT/HCPCS: 71271; Q9967

== ENCOUNTER → 2021-04-07 | Outpatient (REF) | payer MEDICARE, BC, OTHER ==
[~2021-04-07] MED LIST changes: -ISOVUE-370 76% 100ML VIAL As Ordered ONE; +QVAR80AE8 IN
== END ==
LOC: M SFHCPLAZ 10:54
PROVIDERS: ATTEND Internal Medicine
DX: Z01.818 Encounter for other preprocedural examination (principal); J44.9 Chronic obstructive pulmonary disease, unspecified; I10 Essential (primary) hypertension

== ENCOUNTER → 2021-04-07 | Outpatient (CLI) | payer MEDICARE, BC, OTHER ==
[2021-04-07 16:26] LABS: HEMATOCRIT 41.2 % (42.0-52.0); HEMOGLOBIN 13.4 g/dl (13.5-17.5); MEAN CORPUSCULAR HEMOGLOBIN 30.2 pg (27.0-33.0); MEAN CORPUSCULAR HGB CONC 32.5 g/dl (32.0-36.5); PLATELET COUNT, AUTOMATED 261 10^3/uL (150-450); RED BLOOD COUNT 4.43 10^6/uL (4.30-6.10); WHITE BLOOD COUNT 5.5 10^3/uL (4.0-10.0)
[2021-04-07 16:53] LABS: BLOOD UREA NITROGEN 15 MG/DL (7-18); CALCIUM LEVEL 8.8 MG/DL (8.8-10.2); CARBON DIOXIDE LEVEL 26 MEQ/L (21-32); CHLORIDE LEVEL 103 MEQ/L (98-107); CREATININE FOR GFR 1.21 MG/DL (0.70-1.30); GLOMERULAR FILTRATION RATE > 60.0 (>49); GLUCOSE, FASTING 101 MG/DL (70-100); POTASSIUM SERUM 3.6 MEQ/L (3.5-5.1); SODIUM LEVEL 136 MEQ/L (136-145)
== END ==
LOC: M WUC 11:57
PROVIDERS: ATTEND Internal Medicine
DX: Z01.818 Encounter for other preprocedural examination (principal); J44.9 Chronic obstructive pulmonary disease, unspecified; I10 Essential (primary) hypertension
CPT/HCPCS: 36415; 80048; 85027; G0463

== ENCOUNTER → 2021-04-08 | Outpatient (CLI) | payer MEDICARE, OTHER ==
--- NOTE | 2021-04-08 15:42 | RADONC ---
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 He completed RT 70 Gy in 35 fractions on 11/27/19. He is here for surveillance and survivorship care. Diagnosis/Treatment History Oncologic History Remote history of recurrent epiglottitis at one point requiring temporary tracheostomy. 2019 Developed odynophagia and referred to ENT 07/10/19 CT neck without obvious masses or adenopathy 07/16/19 DL and biopsy of laryngeal surface of epiglottis showing SCC 08/14/19 PET-CT showing uptake in the epiglottic primary no nodes [id number] stage II 09/25/19-11/27/19 RT alone 70 Gy in 35 fractions 04/08/20 CT neck negative 02/04/21 Barium swallow negative 03/06/21 CT chest negative 03/06/21 CT neck negative Survivorship: Test Due Next Last result Notes TSH, T4 6m post-tx, then q1y 12/2021 TSH 1.9 T4 1.4 Carotid US q10 y post-tx 2028 Smoking cessation Assess annually if applicable Quit [address] q1y once CR confirmed 202103/06/21 Negative CBC,CMP, Lipids q1y Has cardiology follow up will defer Interval History Reports stable dry mouth and dysphagia no changes since last visit. Still waiting for GI eval appointment. He has pending surgery with Drs. Modi and Angeles to resect his submental lymphedema. Appetite and energy levels are stable and weight is down again. Current Therapy Surveillance Stage Stage II supraglottic larynx SCC [id number] Social History: Former 50+ pack year smoker quit 2019 Does not drink Allergies / Meds Allergies: Coded Allergies: MARIA DE JESUS Inhibitors (Verified Adverse Reaction, Intermediate, hyperkalemia, 04/07/21) adenosine (Verified Adverse Reaction, Intermediate, cardiac arrest, 04/07/21) angiotensin II acetate, human (Verified Adverse Reaction, Intermediate, hyperkalemia, 04/07/21) losartan (Verified Adverse Reaction, Intermediate, ARBs = HYPERKALEMIA, 04/07/21) morphine (Verified Adverse Reaction, Mild, itching, 04/07/21) Home Meds Active Scripts Amlodipine Besylate (Amlodipine Besylate) 10 Mg Tablet, 10 MG PO DAILY for 30 Days, #30 TAB Prov:ERICH WEEKS DO 12/21/20 [oxygen] No Conflict Check, %, #2 oxygen 2LPM for dyspnea ICD10- dyspnea: COPD: Prov:ARLIN RYAN FORMULATION SCIENTIST 08/18/20 Reported Medications Beclomethasone Dipropionate (Qvar Redihaler) 80 Mcg/Act Hfa.aeroba, 80 MCG IN DAILY, INHALER 04/07/21 Formoterol Fumarate (Perforomist) 20 Mcg/2 Ml Vial.neb, 20 MCG INH BIDP PRN for SHORTNESS OF BREATH, NEB 12/02/20 Albuterol Sulfate (Ventolin Hfa) 18 Gm Hfa.aer.ad, 2 PUFFS INH QID PRN for SHORTNESS OF BREATH 06/06/20 Famotidine (Famotidine) 40 Mg Tablet, 40 MG PO DAILY, TAB 06/06/20 Urea (Urea) 85 Gm Cream..g., 1 DOSE EXT DAILY PRN for DRY SKIN USES ON HANDS 04/08/20 Clobetasol Propionate (Temovate) 15 Gm Oint...g., 1 DOSE TOP BID PRN for DRY SKIN APPLIES TO HANDS FOR PSORIASIS 04/08/20 Aspirin (Aspirin EC) 81 Mg Tablet.dr, 81 MG PO DAILY 04/08/20 Oxycodone HCl/Acetaminophen (Oxycodone-Acetaminophen 5-325) 1 Each Tablet, 2 TAB PO Q6H PRN for PAIN 07/05/19 Atorvastatin Calcium (Lipitor) 20 Mg Tab, 20 MG PO QHS, TAB 01/02/14 Discontinued Scripts Oxycodone/Acetaminophen (Oxycodone-Acetaminophen 5-325) 1 Each Tablet, 1 TAB PO Q6H PRN for SEVERE PAIN (PS 8-10) MDD 4 for 7 Days, #20 TAB Prov:SAIDA GUDINO DO 12/20/20 Review of Systems Review of Systems Constitutional: Reports: Fatigue; Denies: Fever, Weight Loss Eyes: Denies: Pain HEENT: Reports: Sinus Congestion, Post Nasal Drip; Denies: Head Aches, Sore Throat Skin: Denies: Rash Pulmonary: Denies: Dyspnea, Cough Cardiovascular: Denies: Chest Pain, Palpitations Gastrointestinal: Denies: Abdominal Pain Endocrine: Denies: Cold Intolerance Musculoskeletal: Denies: Neck pain, Back pain Neurological: Denies: Weakness, Numbness Psych: Reports: Mood Normal Physical Examination Vital Signs Wt 231 lbs T 96.3 P 97 RR 20 BP 137/95 O2 97% Pain 0 Fatigue 0 General Exam: Alert, Cooperative, No Acute Distress Eye Exam: PERRLA, EOMI ENT EXAM: Atraumatic, Other ENT (Oral cavity exam: No visible or palpable lesions in the oral cavity or visible portion of the OPX. There are no palpable cervical LN. There is extensive submental lymphedema. ) Chest Exam: Clear to auscultation, Normal air movement Heart Exam: Rate Normal, Regular Rhythm Abdomen Exam: Soft Extremity Exam: Negative: Edema Skin Exam: Nl turgor and temperature Neuro Exam: Normal Gait, Normal Speech, Cranial Nerves 3-12 NL Psych Exam: Mental status NL Diagnostic and Laboratory Diagnostic Review Radiologic images, relevant labs and pathology reports were personally reviewed and discussed with Mr. Mishra. Assessment and Plan Impression Assessment Mr. 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 He completed RT 70 Gy in 35 fractions on 11/27/19. He is here for surveillance and survivorship care. He has pending surgery with Dr. Modi and Dr. Reynoso to address his submental lymphedema which has been increasingly bothersome. Has had recent scope exam therefore we deferred today. Shared results of his scans of the chest and neck, both negative for recurrent HN cancer and de cruzito lung lesions. Can repeat CT chest in 1 year. He is leaving for [place] in early June, therefore will follow up with him in December 2021 after he returns. He assured me he has an ENT locally in [place] who can evaluate him if need be. Has a pending GI visit next month. Will be due for thyroid labs at next visit. Performance Status ECOG 1 Plan Follow up in December 2021 for surveillance scope and survivorship TFTs at next visit Mr. Mishra was encouraged to call with questions or concerns in the interim pe riod. Billing Statement Total time of [22] minutes was spent preparing for the visit [1], obtaining HPI [5], examining the patient [3], reviewing diagnostic tests [3], discussing management options [3], coordinating care [1], and writing this note [6]. GEORGIE COURTNEY MD Apr 08, 2021 15:42
== END ==
LOC: M ONCR 13:26
PROVIDERS: ATTEND General Practice
DX: C32.1 Malignant neoplasm of supraglottis (principal); I89.0 Lymphedema, not elsewhere classified; Z87.891 Personal history of nicotine dependence; Z88.5 Allergy status to narcotic agent; Z88.8 Allergy status to other drugs, medicaments and biological substances; Z92.3 Personal history of irradiation

== ENCOUNTER → 2021-04-09 | Outpatient (CLI) | payer MEDICARE, BC | LOC: M LABSMTC 11:03 | PROVIDERS: ATTEND Anesthesiology | DX: Z01.812 Encounter for preprocedural laboratory examination (principal); Z20.822 Contact with and (suspected) exposure to COVID-19 ==

== ENCOUNTER 2021-04-14 06:18 | Observation (INO) | payer MEDICARE, OTHER ==
[~2021-04-14] VITALS: Ht 182.9 cm; Wt 104.3 kg
[2021-04-14] VITALS (8 sets, daily range): BP systolic 145–154; BP diastolic 85–88
[~2021-04-14 06:18] MED LIST changes: +HEPARIN SOD (PORCINE) 5000UNITS/ML 1ML VIAL/SYRINGE SQ ONE; +LIDOCAINE 1% MDV 20ML VIAL SQ PRN; +LR 1,000 ML IV ONE
[2021-04-14] MEDS ORDERED: LIDOCAINE 2% W/EPINEPHRINE 20ML VIAL **PRES FREE As Ordered ONE (07:08)
[2021-04-14] MEDS ORDERED: BACITRACIN OINTMENT 30GM TUBE As Ordered ONE (07:08)
[2021-04-14] MEDS ORDERED: ceFAZolin 2 GM/D5W 50 ML IV BAG (J0690 PER 500MG) As Ordered ONE (07:17)
[2021-04-14] MEDS ORDERED: dexameTHASONE 4 MG/ML 1ML VIAL (J1100 PER 1MG) As Ordered ONE (07:25)
[2021-04-14] MEDS ORDERED: propofoL 200 MG/20 ML VIAL As Ordered ONE (07:25)
[2021-04-14] MEDS ORDERED: LIDOCAINE 2% 100MG/5ML SDV (FOR ANES.) As Ordered ONE (07:25)
[2021-04-14] MEDS ORDERED: fentaNYL 250 MCG/5 ML INJECTION (J3010) As Ordered ONE (07:25)
[2021-04-14] MEDS ORDERED: ONDANSETRON 4MG/2ML VIAL As Ordered ONE (07:25)
[2021-04-14] MEDS ORDERED: ROCURONIUM BROMIDE 50 MG/5 ML VIAL As Ordered ONE (07:25)
[2021-04-14] MEDS ORDERED: MIDAZOLAM INJ 2MG/2ML VIAL (J2250 PER 1MG) As Ordered ONE (07:27)
[2021-04-14] MEDS ORDERED: ceFAZolin SOD 2 GM in IV 1 EA IV ONE (07:30)
[2021-04-14] MEDS ORDERED: BUDESONIDE 180MCG INHALER (PULMICORT FLEXHALER) INH SCH (08:00)
[2021-04-14] MEDS ORDERED: SUGAMMADEX SODIUM 500 MG/5 ML VIAL (BRIDION) As Ordered ONE (08:19)
[2021-04-14] MEDS ORDERED: ePHEDrine SULFATE 25 MG/5 ML(5MG/ML) SYRINGE As Ordered ONE ×2 (08:19→08:22)
[2021-04-14] MEDS ORDERED: SEVOFLURANE INHAL SOLN 250 ML BTL As Ordered ONE (08:19)
[2021-04-14] MEDS ORDERED: LACRILUBE (AKWA TEARS) OPHTH OINT 3.5 GM As Ordered ONE (08:19)
[2021-04-14] MEDS ORDERED: ACETAMINOPHEN 1000MG 100ML IV BTL (OFIRMEV) (J0131 PER 10MG) As Ordered ONE (08:53)
--- NOTE | 2021-04-14 09:51 | ROOPDOC ---
[facility] Report Of Operation Report of Operation DATE OF PROCEDURE: 04/14/21 PREOPERATIVE DIAGNOSIS: Anterior neck mass POSTOPERATIVE DIAGNOSIS: same PROCEDURE: Excision of anterior neck mass SURGEON: Dr Kellogg MANAGER SPORTS: Dr Modi ANESTHESIA: General ESTIMATED BLOOD LOSS: 10 cc FINDINGS: Anterior neck mass SPECIMENS: anterior neck mass COMPLICATIONS: none REPLACED: none DRAINS: 15 Fr round POSTOPERATIVE CONDITION: stable DESCRIPTION OF PROCEDURE: This is a 65 year-old male with palpable mass anterior neck. He has intermittent pressure from the mass. It is palpable, sized 6 x 7 cm slow growing. Patient status post radiation treatment for laryngeal cancer in the past. He developed thick fat pad and submental to mid neck area which interferes with his wear of CPAP machine. Patient wishes to have it removed. Risks, benefits, and alternatives discussed with the patient. He is ready to proceed. Dr. Modi is his primary ENT provider will be participating in the surgery as well. After obtaining informed consent patient brought into the operating room, placed in supine position with right arm tucked and shoulder roll placed in order to exposed anterior neck properly, perioperative antibiotics given, sequential stockings placed in the lower calves, general anesthesia induced. He was prepped and draped in the usual sterile fashion. Extended submandibular incision was carried out. Careful sharp dissection was done to create superior and inferior flaps. Subcutaneous tissue has expected post radiation changes which cause additional thickening of the area. Platysma muscle was in good condition. With help of my regulatory assistant Dr. Modi we divided platysma horizontally at the midline level and subplatysmal space was entered where the mass of fat necrotic tissue was identified. We have carefully dissected the mass off the platysma muscle and off the deep structures. Involvement of my regulatory assistant was paramount in evaluating postradiation tissue in the neck and evaluating the the structures. We identified significant amount of scar tissue between sternocleidomastoid muscles and fat necrosis mass which was carefully removed. Minimal amount of venous bleeding was encountered and was contained with electrocautery. Platysma muscle was closed with interrupted 3-0 Vicryl sutures. Excess skin and subcuticular tissue affected by radiation was measured and resected. 15 Nepalese round drain was placed through a separate stab incision from the right side of the neck. Flaps were approximated in layers with 3-0 and 4-0 Monocryl sutures. Steri- Strips are applied on the incision. Patient extubated in operating room, tolerated procedure well, and transferred to recovery room in stable condition. LEANA KELLOGG DO Apr 14, 2021 09:51
--- NOTE | 2021-04-14 09:51 | POST-OPPD ---
Postoperative Procedure Note Date Of Procedure: Apr 14, 2021 PREOPERATIVE DIAGNOSIS: Anterior neck mass POSTOPERATIVE DIAGNOSIS: same PROCEDURE: Excision of anterior neck mass SURGEON: Dr Kellogg PROCESS ANALYST: Dr Modi ANESTHESIA: General ESTIMATED BLOOD LOSS: 10 cc FINDINGS: Anterior neck mass SPECIMENS: anterior neck mass COMPLICATIONS: none REPLACED: none DRAINS: 15 Fr round POSTOPERATIVE CONDITION: stable LEANA KELLOGG DO Apr 14, 2021 09:51
[2021-04-14] MEDS ORDERED: oxyCODONE 5MG TAB PO PRN (10:00)
[2021-04-14] MEDS ORDERED: LR 1,000 ML IV SCH (10:00)
[2021-04-14] MEDS ORDERED: fentaNYL 100 MCG/2 ML INJECTION (J3010) IV PRN (10:00)
[2021-04-14] MEDS ORDERED: ONDANSETRON 4MG/2ML VIAL IV PRN (10:00)
[2021-04-14] MEDS: HYDROMORPHONE HCL 0.5 MG/ 0.5 ML SYRINGE (J1170 PER 1) IV PRN ×3 (10:01→10:25)
[2021-04-14] MEDS ORDERED: ALBUTEROL 90 MCG/ACT 8GM HFA INHALER INH PRN (12:25)
[2021-04-14] MEDS ORDERED: CLOBETASOL PROP 0.05% OINT 30 GM TOP PRN (12:25)
[2021-04-14 13:06] LABS: BASO % 0.4 % (0.0-1.0); HEMATOCRIT 40.3 % (42.0-52.0); HEMOGLOBIN 13.6 g/dl (13.5-17.5); LYMPH # 0.6 10^3/uL (1.5-5.0); LYMPH % 12.5 % (24.0-44.0); MEAN CORPUSCULAR HEMOGLOBIN 30.5 pg (27.0-33.0); MEAN CORPUSCULAR HGB CONC 33.7 g/dl (32.0-36.5); MEAN CORPUSCULAR VOLUME 90.4 fl (80.0-96.0); MONO # 0.1 10^3/uL (0.0-0.8); MONO % 1.6 % (2.0-8.0); NEUTROPHILS # 4.2 10^3/uL (1.5-8.5); NEUTROPHILS % 85.1 % (36.0-66.0); PLATELET COUNT, AUTOMATED 229 10^3/uL (150-450); RED BLOOD COUNT 4.46 10^6/uL (4.30-6.10); WHITE BLOOD COUNT 4.9 10^3/uL (4.0-10.0)
[2021-04-14 13:31] LABS: INR 1.11; PROTHROMBIN TIME 14.7 SECONDS (12.7-14.5)
[2021-04-14 13:33] LABS: PARTIAL THROMBOPLASTIN TIME 42.2 SECONDS (25.9-37.0)
[2021-04-14 13:36] LABS: ALBUMIN 3.4 GM/DL (3.2-5.2); ALT/SGPT 23 U/L (12-78); BILIRUBIN,TOTAL 0.6 MG/DL (0.2-1.0); BLOOD UREA NITROGEN 18 MG/DL (7-18); CARBON DIOXIDE LEVEL 27 MEQ/L (21-32); CHLORIDE LEVEL 103 MEQ/L (98-107); CREATININE FOR GFR 1.27 MG/DL (0.70-1.30); GLOMERULAR FILTRATION RATE > 60.0 (>49); GLUCOSE, FASTING 135 MG/DL (70-100); POTASSIUM SERUM 3.7 MEQ/L (3.5-5.1); SODIUM LEVEL 135 MEQ/L (136-145); TOTAL PROTEIN 7.6 GM/DL (6.4-8.2)
[2021-04-14] MEDS: PERCOCET 5MG/325MG TAB PO PRN ×2 (13:42→19:49)
--- NOTE | 2021-04-14 14:35 | HPEPDOC ---
General Date of Admission April 14, 2021 Date of Service: Apr 14, 2021 Chief Complaint The patient is a 65-year-old male admitted with a reason for visit of Anterior Neck Mass. Source: RN/MD History of Present Illness Mr. Mishra is a 65-year-old male with supraglottic larynx cancer and history of tobacco abuse who is here after elective excision of chin mass by Dr. Reynoso on 04/14/2021. Procedure went well, and Dr. Reynoso requested postsurgical overnight monitoring to monitor oxygen status. Patient was seen in the PACU after operation. Patient was still under the effects of anesthesia, but was able to converse. Other than the sore throat, he denied any fever, chest pain, dyspnea, abdominal pain, or dysuria. At night, he is normally on CPAP with 2 L bleed in. Patient will be monitored overnight. Home Medications Scheduled Amlodipine Besylate (Amlodipine Besylate) 10 Mg Tablet, 10 MG PO DAILY Aspirin (Aspirin EC) 81 Mg Tablet.dr, 81 MG PO DAILY, (Reported) Atorvastatin Calcium (Lipitor) 20 Mg Tab, 20 MG PO QHS, (Reported) Beclomethasone Dipropionate (Qvar Redihaler) 80 Mcg/Act Hfa.aeroba, 80 MCG IN DAILY, (Reported) Famotidine (Famotidine) 40 Mg Tablet, 40 MG PO DAILY, (Reported) Scheduled PRN Albuterol Sulfate (Ventolin Hfa) 18 Gm Hfa.aer.ad, 2 PUFFS INH QID PRN for SHORTNESS OF BREATH, (Reported) Clobetasol Propionate (Temovate) 15 Gm Oint...g., 1 DOSE TOP BID PRN for DRY SKIN, (Reported) APPLIES TO HANDS FOR PSORIASIS Formoterol Fumarate (Perforomist) 20 Mcg/2 Ml Vial.neb, 20 MCG INH BIDP PRN for SHORTNESS OF BREATH, (Reported) Oxycodone HCl/Acetaminophen (Oxycodone-Acetaminophen 5-325) 1 Each Tablet, 2 TAB PO Q6H PRN for PAIN, (Reported) Urea (Urea) 85 Gm Cream..g., 1 DOSE EXT DAILY PRN for DRY SKIN, (Reported) USES ON HANDS Allergies Coded Allergies: MARIA DE JESUS Inhibitors (Verified Adverse Reaction, Intermediate, hyperkalemia, 04/07/21) adenosine (Verified Adverse Reaction, Intermediate, cardiac arrest, 04/07/21) angiotensin II acetate, human (Verified Adverse Reaction, Intermediate, hyperkalemia, 04/07/21) losartan (Verified Adverse Reaction, Intermediate, ARBs = HYPERKALEMIA, 04/07/21) morphine (Verified Adverse Reaction, Mild, itching, 04/07/21) Past Medical History Medical History 1. 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 Chronic back pain 3. Hypertension 4. Hyperlipidemia 5. Arthritis 6. History of orchitis and orchididitis 7. GERD 8. COPD 9. Fatty liver disease 10. Obesity 11. Tobacco abuse, quit in 07/10 12. CKD stage III 13. ERIBERTO on CPAP Surgical History 1. Tracheostomy due to epiglottitis in 1991 2. Colonoscopy which demonstrated mild diverticulosis 3. Cardiac cath with stents x2 4. PEG insertion and removal 5. Tonsillectomy and adenoidectomy 6. Right knee arthroscopy 7. Skin graft 8. Right and left hip replacements 9. Lumbar laminectomy 10. TURP 11. Sigmoid colectomy with ostomy and reversal 12. Excision of chin mass by Dr. Reynoso on 04/14/2021 Family History Father: at 49 years old, history of heart attack Mother: at 80 years old, history of malignant neoplasm at unspecified site Social History * Smoker: former Smoker Alcohol: occationally Drugs: denies A-FIB/CHADSVASC A-FIB History Current/History of A-Fib/PAF?: No Review of Systems Constitutional: Denies: Chills, Fever Eyes: Denies: Vision change ENT: Reports: Sore Throat Skin: Denies: Rash Pulmonary: Denies: Dyspnea Cardiovascular: Denies: Chest Pain Gastrointestinal: Denies: Abdominal Pain Genitourinary: Denies: Dysuria Hematologic: Denies: Bruising Neurological: Denies: Numbness Psych: Denies: Anxiety, Depression Physical Examination General Exam: Positive: Cooperative Eye Exam: Positive: EOMI; Negative: Sclera icteric Chest Exam: Positive: Clear to auscultation Heart Exam: Positive: Rate Normal, Regular Rhythm Abdomen Exam: Positive: Normal bowel sounds, Soft; Negative: Tenderness Extremity Exam: Negative: Edema Neuro Exam: Positive: Cranial Nerves 3-12 NL Psych Exam: Positive: Mental status NL, Mood NL Vital Signs Vital Signs Date Time Temp Pulse Resp B/P (MAP) Pulse Ox O2 Delivery O2 Flow Rate FiO2 04/14/21 13:42 17 04/14/21 12:30 97.6 83 149/86 (107) 94 Nasal Cannula 2.0 Laboratory Data Labs 24H Laboratory Tests 2 04/14/21 12:46: Immature Granulocyte % (Auto) 0.4, Neutrophils (%) (Auto) 85.1H, Lymphocytes (%) (Auto) 12.5L, Monocytes (%) (Auto) 1.6L, Eosinophils (%) (Auto) 0.0, Basophils (%) (Auto) 0.4, Neutrophils # (Auto) 4.2, Lymphocytes # (Auto) 0.6L, Monocytes # (Auto) 0.1, Eosinophils # (Auto) 0.0, Basophils # (Auto) 0.0, Nucleated Red Blood Cells % (auto) 0.0, Prothrombin Time 14.7H, Prothromb Time International Ratio 1.11, Activated Partial Thromboplast Time 42.2H, Anion Gap 5L, Glomerular Filtration Rate > 60.0, Calcium Level 9.0, Total Bilirubin 0.6, Aspartate Amino Transf (AST/SGOT) 21, Alanine Aminotransferase (ALT/SGPT) 23, Alkaline Phosphatase 85, Total Protein 7.6, Albumin 3.4, Albumin/Globulin Ratio 0.8 CBC/BMP Laboratory Tests 04/14/21 12:46 Assessment/Plan Mr. Mishra is a 65-year-old male with supraglottic larynx cancer and history of tobacco abuse who is here after elective excision of chin mass by Dr. Reynoso on 04/14/2021. Procedure went well and tissue has been sent to pathology. Patient be monitored overnight for oxygen status. Plan / VTE VTE Prophylaxis Ordered?: Yes Plan Plan 1. Chin mass Excised by Dr. Reynoso on 04/14/2021 Tissue sent to pathology 2. ERIBERTO on CPAP Order for CPAP inpatient May have 2 L bled into CPAP 3. Hypertension Continue amlodipine 4. Hyperlipidemia Continue atorvastatin 5. COPD Continue inhalers 6. GERD Continue famotidine 7. DVT prophylaxis SCDs and teds Disposition: Pending Dr. Reynoso's evaluation tomorrow morning GÉNESIS RODRIGUEZ DO Apr 14, 2021 13:56
[2021-04-14] MEDS: BUDESONIDE 180MCG INHALER (PULMICORT FLEXHALER) INH SCH (20:16)
[2021-04-14] MEDS: FORMOTEROL FUMARATE 20 MCG/2 ML INHALATION SOLUTION (PERFOROMIST) INH SCH (20:16)
[2021-04-14] MEDS ORDERED: ATORVASTATIN 20 MG TAB PO SCH (21:00)
[2021-04-15 06:00] VITALS: BP 148/87
[2021-04-15 06:28] LABS: HEMATOCRIT 39.1 % (42.0-52.0); HEMOGLOBIN 13.1 g/dl (13.5-17.5); MEAN CORPUSCULAR HEMOGLOBIN 30.6 pg (27.0-33.0); MEAN CORPUSCULAR HGB CONC 33.5 g/dl (32.0-36.5); MEAN CORPUSCULAR VOLUME 91.4 fl (80.0-96.0); PLATELET COUNT, AUTOMATED 258 10^3/uL (150-450); RED BLOOD COUNT 4.28 10^6/uL (4.30-6.10); WHITE BLOOD COUNT 8.4 10^3/uL (4.0-10.0)
[2021-04-15 06:59] LABS: BLOOD UREA NITROGEN 15 MG/DL (7-18); CALCIUM LEVEL 8.9 MG/DL (8.8-10.2); CARBON DIOXIDE LEVEL 27 MEQ/L (21-32); CHLORIDE LEVEL 103 MEQ/L (98-107); CREATININE FOR GFR 1.04 MG/DL (0.70-1.30); GLOMERULAR FILTRATION RATE > 60.0 (>49); GLUCOSE, FASTING 151 MG/DL (70-100); SODIUM LEVEL 136 MEQ/L (136-145)
[2021-04-15] MEDS: FORMOTEROL FUMARATE 20 MCG/2 ML INHALATION SOLUTION (PERFOROMIST) INH SCH (07:54)
[2021-04-15] MEDS: BUDESONIDE 180MCG INHALER (PULMICORT FLEXHALER) INH SCH (07:54)
[2021-04-15 08:37] VITALS: BP 167/88
[2021-04-15] MEDS: PERCOCET 5MG/325MG TAB PO PRN (08:38)
[2021-04-15] MEDS ORDERED: FAMOTIDINE 20 MG TAB PO SCH (09:00)
[2021-04-15] MEDS ORDERED: ASPIRIN 81MG ENTERIC TABLET PO SCH (09:00)
--- NOTE | 2021-04-15 10:11 | IPNPDOC ---
Subjective General Date Seen: Apr 15, 2021 Subject Chief Complaint/History The patient is a 65-year-old male admitted with a reason for visit of Anterior Neck Mass. Patient status post anterior neck mass excision postop day 1. Patient is doing well. Pain controlled with p.o. medications, he is ambulating and tolerating regular diet. Denies shortness of breath. Current Medications Current Medications Current Medications Medications (Trade) Dose Ordered Sig/Jose Route PRN Reason Start Time Stop Time Status Last Admin Dose Admin Albuterol Sulfate (Proventil, Ventolin Hfa) 2 puff QID PRN INH SHORTNESS OF BREATH 04/14/21 12:25 Amlodipine Besylate (Norvasc) 10 mg DAILY PO 04/15/21 09:00 04/15/21 08:37 Aspirin (Ecotrin) 81 mg DAILY PO 04/15/21 09:00 04/15/21 08:37 Atorvastatin Calcium (Lipitor) 20 mg QHS PO 04/14/21 21:00 04/14/21 20:04 Budesonide (Pulmicort Flexhaler) 2 puff RBID INH 04/14/21 08:00 Cancel Budesonide (Pulmicort Flexhaler) 2 puff RBID INH 04/14/21 20:00 04/15/21 07:54 Clobetasol Propionate (Temovate 0.05%) 1 dose BID PRN TOP DRY SKIN 04/14/21 12:25 Famotidine (Pepcid) 40 mg DAILY PO 04/15/21 09:00 04/15/21 08:37 Fentanyl Citrate (Sublimaze) 25 mcg Q5MP PRN IV PAIN LEVEL 8-10 04/14/21 10:00 04/14/21 12:00 DC Formoterol Fumarate (Perforomist) 20 mcg RBID INH 04/14/21 20:00 04/15/21 07:54 Hydromorphone HCl (Dilaudid) 0.2 mg Q5MP PRN IV PAIN LEVEL 5-7 04/14/21 10:00 04/14/21 12:00 DC 04/14/21 10:25 Lactated Ringer's 1,000 ml @ 80 mls/hr [id number] IV 04/14/21 10:00 04/14/21 12:00 DC Lidocaine HCl (LIDOCAINE 1% MDV 20ml) 0.1 ml ONCE PRN SQ DISCOMFORT BEFORE IV START 04/14/21 06:00 04/14/21 09:56 DC Ondansetron HCl (ZOFRAN INJection) 4 mg Q4HP PRN IV NAUSEA OR VOMITING 04/14/21 10:00 04/14/21 12:00 DC Oxycodone HCl (Roxicodone, Oxyir) 5 mg ASDIRECTED PRN PO PAIN LEVEL 1-4 04/14/21 10:00 04/14/21 12:00 DC Oxycodone/ Acetaminophen (Percocet 5mg/ 325mg Tablet) 2 tab Q6H PRN PO MODERATE PAIN (PS 5-7) 04/14/21 12:25 04/15/21 08:38 Allergies Coded Allergies: MARIA DE JESUS Inhibitors (Verified Adverse Reaction, Intermediate, hyperkalemia, 04/07/21) adenosine (Verified Adverse Reaction, Intermediate, cardiac arrest, 04/07/21) angiotensin II acetate, human (Verified Adverse Reaction, Intermediate, hyperkalemia, 04/07/21) losartan (Verified Adverse Reaction, Intermediate, ARBs = HYPERKALEMIA, 04/07/21) morphine (Verified Adverse Reaction, Mild, itching, 04/07/21) Objective Physical Examination Examination GENERAL APPEARANCE:Patient seen, laying in bed, awake, alert, and oriented. Comfortable, in no acute distress. SKIN: Warm and moist. NECK: Supple, no thyromegaly. No obvious jugular venous distention. Incision intact, covered with Steri-Strips. Right side of the neck with SABIHA drain, drainage 10 cc overnight. No swelling, pain, expanding hematoma. LUNGS: Clear to auscultation bilaterally. No wheezing appreciated. HEART: No chest wall abnormalities. Regular rate and rhythm with no murmurs appreciated. ABDOMEN: Abdomen is soft, non-tender, non-distended. EXTREMITIES: No edema identified. No calf tenderness. Vital Signs Vital Signs Date Time Temp Pulse Resp B/P (MAP) Pulse Ox O2 Delivery O2 Flow Rate FiO2 04/15/21 09:08 17 04/15/21 08:37 82 167/88 04/15/21 06:00 98.0 99 Nasal Cannula 2.0 I&Os I&O- Last 24 Hours up to 6 AM 04/15/21 05:59 Intake Total 3020 ml Output Total 460 ml Balance 2560 ml Laboratory Data Labs 24H Laboratory Tests 2 04/14/21 12:46: Immature Granulocyte % (Auto) 0.4, Neutrophils (%) (Auto) 85.1H, Lymphocytes (%) (Auto) 12.5L, Monocytes (%) (Auto) 1.6L, Eosinophils (%) (Auto) 0.0, Basophils (%) (Auto) 0.4, Neutrophils # (Auto) 4.2, Lymphocytes # (Auto) 0.6L, Monocytes # (Auto) 0.1, Eosinophils # (Auto) 0.0, Basophils # (Auto) 0.0, Nucleated Red Blo od Cells % (auto) 0.0, Prothrombin Time 14.7H, Prothromb Time International Ratio 1.11, Activated Partial Thromboplast Time 42.2H, Anion Gap 5L, Glomerular Filtration Rate > 60.0, Calcium Level 9.0, Total Bilirubin 0.6, Aspartate Amino Transf (AST/SGOT) 21, Alanine Aminotransferase (ALT/SGPT) 23, Alkaline Phosphatase 85, Total Protein 7.6, Albumin 3.4, Albumin/Globulin Ratio 0.8 04/15/21 05:46: Nucleated Red Blood Cells % (auto) 0.0, Anion Gap 6L, Glomerular Filtration Rate > 60.0, Calcium Level 8.9 CBC/BMP Laboratory Tests 04/14/21 12:46 04/15/21 05:46 Impression Anterior neck mass excision postop day 1. Recovering well. Stable for discharge. Instructions are given to the patient. Monitor SABIHA drain record output, wear compressive strap for better part of the day. No restrictions with diet. Follow-up with plastic surgery and ENT after discharge. Plastic surgery appointment for April 20 at 1130 Plan / VTE VTE Prophylaxis Ordered?: Yes LEANA KELLOGG DO Apr 15, 2021 10:11
--- NOTE | 2021-04-15 15:24 | DS.PDOC ---
Discharge Summary General Date of Admission April 14, 2021 Date of Discharge April 15, 2021 Specialist/Consultants Involve Plastic yelitza, Dr. Reynoso Discharge Summary PROCEDURES PERFORMED DURING STAY: Excision of anterior neck mass by Dr. Reynoso on April 14, 2021 ADMITTING DIAGNOSES: 1. Chin mass 2. ERIBERTO on CPAP 3. Hypertension 4. Hyperlipidemia 5. COPD 6. GERD DISCHARGE DIAGNOSES: 1. Chin mass 2. ERIBERTO on CPAP 3. Hypertension 4. Hyperlipidemia 5. COPD 6. GERD COMPLICATIONS/CHIEF COMPLAINT: Anterior Neck Mass. HISTORY OF PRESENT ILLNESS: Mr. Mishra is a 65-year-old male with supraglottic larynx cancer and history of tobacco abuse who is here after elective excision of chin mass by Dr. Reynoso on 04/14/2021. Procedure went well, and Dr. Reynoso requested postsurgical overnight monitoring to monitor oxygen status. Patient was seen in the PACU after operation. Patient was still under the effects of anesthesia, but was able to converse. Other than the sore throat, he denied any fever, chest pain, dyspnea, abdominal pain, or dysuria. At night, he is normal ly on CPAP with 2 L bleed in. Patient will be monitored overnight. HOSPITAL COURSE: Patient did well overnight. He only required 2 L of oxygen nocturnally which is his baseline. This morning, he feels well. He still has some soreness from the intubation and surgery, but he feels ready for home. Plastic surgery, Dr. Reynoso, evaluated patient, and patient was cleared for home. DISCHARGE MEDICATIONS: Please see below. ALLERGIES: Please see below. PHYSICAL EXAMINATION ON DISCHARGE: VITAL SIGNS: Please see below. GENERAL: Comfortable, in no apparent distress. HEENT: EOMI, sclera clear. NECK: S/P surgery and has neck drain. RESPIRATORY: Lungs clear to auscultation bilaterally, no rales, wheeze or rhonchi. CARDIOVASCULAR: Regular rate and rhythm. ABDOMEN: Soft, nontender, no guarding or rebound tenderness. Normal bowel sounds. MUSCLE SKELETAL: No pitting edema bilaterally NEUROLOGICAL: CN 312 grossly intact PSYCHOLOGICAL: Normal mood and affect LABORATORY DATA: Please see below. IMAGING: None PROGNOSIS: Good ACTIVITY: As tolerated. DIET: As tolerated DISCHARGE PLAN: Home DISPOSITION: Home DISCHARGE INSTRUCTIONS: 1. Follow-up with PCP in a week 2. Follow-up with plastic yelitza, Dr. Reynoso on April 20 at 11:30 AM 3. Follow-up with ENT as scheduled on April 21 ITEMS TO FOLLOWUP ON ON OUTPATIENT: 1. Pathology results of neck excision DISCHARGE CONDITION: Stable. Total time spent on discharge planning, discharge summary, medication reconciliation: 25 minutes Vital Signs/I&Os Vital Signs Date Time Temp Pulse Resp B/P (MAP) Pulse Ox O2 Delivery O2 Flow Rate FiO2 04/15/21 09:08 17 04/15/21 08:37 82 167/88 04/15/21 06:00 98.0 99 Nasal Cannula 2.0 I&O- Last 24 Hours up to 6 AM 04/15/21 06:00 Intake Total 3220 ml Output Total 810 ml Balance 2410 ml Laboratory Data Labs 24H Laboratory Tests 2 04/15/21 05:46: Nucleated Red Blood Cells % (auto) 0.0, Anion Gap 6L, Glomerular Filtration Rate > 60.0, Calcium Level 8.9 CBC/BMP Laboratory Tests 04/15/21 05:46 Discharge Medications Scheduled Amlodipine Besylate (Amlodipine Besylate) 10 Mg Tablet, 10 MG PO DAILY Aspirin (Aspirin EC) 81 Mg Tablet.dr, 81 MG PO DAILY, (Reported) Atorvastatin Calcium (Lipitor) 20 Mg Tab, 20 MG PO QHS, (Reported) Beclomethasone Dipropionate (Qvar Redihaler) 80 Mcg/Act Hfa.aeroba, 80 MCG IN DAILY, (Reported) Famotidine (Famotidine) 40 Mg Tablet, 40 MG PO DAILY, (Reported) Scheduled PRN Albuterol Sulfate (Ventolin Hfa) 18 Gm Hfa.aer.ad, 2 PUFFS INH QID PRN for SHORTNESS OF BREATH, (Reported) Clobetasol Propionate (Temovate) 15 Gm Oint...g., 1 DOSE TOP BID PRN for DRY SKIN, (Reported) APPLIES TO HANDS FOR PSORIASIS Formoterol Fumarate (Perforomist) 20 Mcg/2 Ml Vial.neb, 20 MCG INH BIDP PRN for SHORTNESS OF BREATH, (Reported) Oxycodone HCl/Acetaminophen (Oxycodone-Acetaminophen 5-325) 1 Each Tablet, 2 TAB PO Q6H PRN for PAIN, (Reported) Urea (Urea) 85 Gm Cream..g., 1 DOSE EXT DAILY PRN for DRY SKIN, (Reported) USES ON HANDS Allergies Coded Allergies: MARIA DE JESUS Inhibitors (Verified Adverse Reaction, Intermediate, hyperkalemia, 04/07/21) adenosine (Verified Adverse Reaction, Intermediate, cardiac arrest, 04/07/21) angiotensin II acetate, human (Verified Adverse Reaction, Intermediate, hyperkalemia, 04/07/21) losartan (Verified Adverse Reaction, Intermediate, ARBs = HYPERKALEMIA, 04/07/21) morphine (Verified Adverse Reaction, Mild, itching, 04/07/21) GÉNESIS RODRIGUEZ DO Apr 15, 2021 15:24
== END 2021-04-15 11:25 | disposition home or self-care (01) ==
LOC: M SDC 06:18 → M MS5PR 10:19 → M SDC 10:55 → M MS5PR 04-15 11:25
PROVIDERS: ADMIT Internal Medicine; ATTEND Plastic Surgery Surgery of the Hand
DX: R22.1 Localized swelling, mass and lump, neck (principal); G47.33 Obstructive sleep apnea (adult) (pediatric); I10 Essential (primary) hypertension; E78.5 Hyperlipidemia, unspecified; J44.9 Chronic obstructive pulmonary disease, unspecified; K21.9 Gastro-esophageal reflux disease without esophagitis; Z85.21 Personal history of malignant neoplasm of larynx; Z92.21 Personal history of antineoplastic chemotherapy; Z87.891 Personal history of nicotine dependence; Z99.81 Dependence on supplemental oxygen; Z79.899 Other long term (current) drug therapy; Z79.82 Long term (current) use of aspirin; Z79.51 Long term (current) use of inhaled steroids; Z88.8 Allergy status to other drugs, medicaments and biological substances; Z88.5 Allergy status to narcotic agent
CPT/HCPCS: 21554; 36415; 80048; 80053; 85025; 85027; 85610; 85730; 88307; 94640; G0378; J0131; J0690; J1100; J1170; J2250; J2405; J3010; J7606

== ENCOUNTER → 2021-06-03 | Outpatient (CLI) | payer MEDICARE, OTHER ==
[~2021-06-03] MED LIST changes: -HEPARIN SOD (PORCINE) 5000UNITS/ML 1ML VIAL/SYRINGE SQ ONE; -LIDOCAINE 1% MDV 20ML VIAL SQ PRN; -LR 1,000 ML IV ONE
== END ==
LOC: M LABSMTC 10:10
PROVIDERS: ATTEND Anesthesiology
DX: Z20.828 Contact with and (suspected) exposure to other viral communicable diseases (principal); Z11.52 Encounter for screening for COVID-19

== ENCOUNTER 2021-06-08 08:11 | Day surgery (SDC) | payer MEDICARE, OTHER ==
[~2021-06-08] VITALS: Ht 182.9 cm; Wt 104.5 kg
[~2021-06-08 08:11] MED LIST changes: +NS 1,000 ML IV ONE
--- OUTSIDE RECORDS SUMMARY | 2021-06-08 08:15 | CCD | Continuity of Care Document ---
Author Author Foster KELLOGG DO Organization Unknown Address [address] [place] [id number] Phone [phone] Care Team Providers Care Fluorescent Solution Mixer Name Role Phone LavonageNazia R.N. AUTM [phone] [facility] AUTM [phone] Robert Falcon MD AUTM [phone] [facility] Records AUTM [phone] Chantal Schmid M.D. AUTM [phone] Chasidy Kellogg D.O. AUTM [phone] Timmy Burns M.D. AUTM [phone] AUTM Unavailable Baldomero Modi M.D. AUTM [phone] Problems Active Problems Provider Date Obstructive sleep apnea syndrome TAM Brantley Onset: 01/30/2020 Dyspnea TAM Brantley Onset: 10/02/2020 Chronic obstructive lung disease TAM Brantley Onset: 10/02/2020 Ex-smoker TAM Brantley Onset: 10/02/2020 Social History Type Date Description Comments Sex Unknown ETOH Use 2-3 A Week Recreational Drug Use Denies Drug Use Tobacco Use Start: Unknown End: Unknown Patient is a former smoker Quit 06/28/2019 Smoking Status Reviewed: 02/26/21 Patient is a former smoker Qu it 06/28/2019 Allergies and adverse reactions Active Allergies Criticality Reaction | Severity Comments Date Adenosine Unable to assess criticality CARDIAC ARREST 01/27/2017 Morphine Unable to assess criticality HIVES 01/27/2017 Medications Active Medications SIG Qnty Indications Ordering Provide r Date Aerochamber Plus Hector-Vu Misc use with inhaler as needed 1units TAM Brantley 05/18/2021 Flovent HFA 110mcg/Act Aerosol 2 puff twice a day 12gm TAM Brantley 05/18/2021 Perforomist 20mcg/2ML Nebulizer 1 vial inhaled via nebulizer twice a day 120ml WILLEM Brantley 10/13/2020 Albuterol Sulfate (2 .5mg/3ML) 0.083% Nebulizer 1 vial four times a day as needed 360ml R06.02 TAM Briceno 10/02/2020 CPAP Device 13cm lcw G47.33 TAM Brantley 01/30/2020 Percocet 5-325mg Tablets 2 by mouth every 4 hours prn pain Unknown Oxygen Device 2 l bled into CPAP (Slezka?) Unknown Amlodipine Besylate 10mg Tablets 1 tab by mouth every day Unknown Prilosec OTC 20mg Tablets DR 1 tab by mouth every day 60tabs Unknown Aspirin [address] 1 tab by mouth every day Unknown Ventolin HFA 108(90Base) mcg/Act A erosol 2 puffs qid/prn 18gm TAM Brantley Lipitor 20mg Tablets 1 by mouth every day Unknown History Medications Lactulose 10GM/15ML Solution take 15 mls. once a day . (constipation) prn 1892ml K59.00 Robert zheng MD 01/09/2021 - 04/12/2021 Zofran 4mg Tablets 1 every 6 hours as needed nausea 30tabs Robert Falcon MD - 02/04/2021 Flagyl 500mg Tablets 1 tab by mouth @ 2p & 10p day before surg 1 tab by mouth @ 6am morning of surg 3tabs Robert Falcon MD 12/10/2020 - 12/22/2020 Neomycin Sulfate 500mg Tablets 2 by mouth @ 2 & 10p day before surgery, 2 by mouth @ 6am morning of surgery 6tabs Robert Falcon MD 12/10/2020 - 12/22/2020 Suprep Bowel Prep Kit 17.5-3.13-1.6GM/177ML Solution take per doctor's bowel prep instructions. 354ml Robert Falcon MD 12/10/2020 - 12/22/2020 Medications Administered in Office Medication SIG Qnty Indications Ordering Provider Date Covid-19 vaccine, Unspecified Inj ection Unknown 11/21/2020 Covid-19 vaccine, Unspecified Inj ection Unknown 10/31/2020 Immunizations Description No Information Available Vital Signs Date Vital Result Comment 06/05/2021 8:30am Body Temperature 97.2 F 05/13/2021 8:23am BP Systolic 126 mmHg BP Diastolic 85 mmHg Heart Rate 88 /min O2 % BldC Oximetry 99 % Height 72 inches 6'0" Weight 231.00 lb BMI (Body Mass Index) 31.3 kg/m2 [place] Body Weight 178 lb Weight 104.782 kg BSA (Body Surface Area) 2.27 m2 Results Test Acquired Date Facility Test Result H/L Range Note FVL/Eleno 05/13/2021 [facility] SEE IMAGE FVC-Pred 4.98 L FVC-Pre 3.35 L FVC-%Pred-Pre 67 L FVC-LLN 3.99 L Fev1-Pred 3.73 L Fev1-Pre 2.17 L Fev1-%Pred-Pre 58 L Fev1-LLN 2.89 L Fev6-Pred 4.74 L Fev6-Pre 3.33 L Fev6-%Pred-Pre 70 L Fev6-LLN 3.78 L Rwy8egp-Cncl 75 % Myn8zmc-Kan 65 % Aqz9uot-%Pred-Pre 86 % Veo5sti-EZT 65 % Css0qwb-Dceo 95 % Evt6xri-Pxw 99 % Don8avr-%Pred-Pre 104 % FEFMax-Pred 9.37 L/E/sec FEFMax-Pre 4.03 L/E/sec FEFMax-%Pred-Pre 42 L/E/sec FEFMax-LLN 6.91 L/E/sec Chm8580-Djsx 2.96 L/E/sec Svj0286-Yud 1.20 L/E/sec Imu6969-%Pred-Pre 40 L/E/sec Dzm5183-SDW 1.27 L/E/sec ExpTime-Pre 7.46 sec Esa2zhb2-Teur 78 % Fub6tjq7-Bce 65 % Ely4ryc8-%Pred-Pre 82 % Vhf0xqb2-SRL 69 % Complete Blood Count 04/15/[address] [facility] Main Lab [address] [place] [address] [phone] White Blood Count 8.4 10 Normal 4.0-10.0 Red Blood Count 4.28 10 Low 4.30-6.10 Hemoglobin 13.1 g/dL Low 13.5-17.5 Hematocrit 39.1 % Low 42.0-52.0 Mean Corpuscular Volume 91.4 fl Normal 80.0-96.0 Mean Corpuscular Hemoglobin 30.6 pg Normal 27.0-33.0 Mean Corpuscular HGB Conc 33.5 g/dL Normal 32.0-36.5 Red Cell Distribution Width 14.3 % Normal 11.5-14.5 Platelet Count, Automated 258 10 Normal 150-450 Nucleated Red Blood Cell % 0.0 % Normal 0-0 Basic Metabolic Profile 04/15/2021 [facility] Main Lab [address] [place] [address] [phone] Glucose, Fasting 151 mg/dL High 70-100 Blood Urea Nitrogen 15 mg/dL Normal 7-18 Creatinine For GFR 1.04 mg/dL Normal 0.70-1.30 Glomerular Filtration Rate > 60.0 Normal >49 1 Sodium Level 136 mEq/L Normal 136-145 Potassium Serum 4.0 mEq/L Normal 3.5-5.1 Chloride Level 103 mEq/L Normal 98-107 Carbon Dioxide Level 27 mEq/L Normal 21-32 Anion Gap 6 mEq/L Low 8-16 Calcium Level 8.9 mg/dL Normal 8.8-10.2 CBC With Differential 04/14/2021 [facility] Main Lab [address] [place] [address] [phone] White Blood Count 4.9 10 Normal 4.0-10.0 Red Blood Count 4.46 10 Normal 4.30-6.10 Hemoglobin 13.6 g/dL Normal 13.5-17.5 Hematocrit 40.3 % Low 42.0-52.0 Mean Corpuscular Volume 90.4 fl Normal 80.0-96.0 Mean Corpuscular Hemoglobin 30.5 pg Normal 27.0-33.0 Mean Corpuscular HGB Conc 33.7 g/dL Normal 32.0-36.5 Red Cell Distribution Width 14.5 % Normal 11.5-14.5 Platelet Count, Automated 229 10 Normal 150-450 Neutrophils % 85.1 % High 36.0-66.0 Lymph % 12.5 % Low 24.0-44.0 Izard % 1.6 % Low 2.0-8.0 Eos % 0.0 % Normal 0.0-3.0 Baso % 0.4 % Normal 0.0-1.0 Immature Granulocyte % 0.4 % Normal 0-3.0 Nucleated Red Blood Cell % 0.0 % Normal 0-0 Neutrophils # 4.2 10 Normal 1.5-8.5 Lymph # 0.6 10 Low 1.5-5.0 Izard # 0.1 10 Normal 0.0-0.8 Eos # 0.0 10 Normal 0.0-0.5 Baso # 0.0 10 Normal 0.0-0.2 Prothrombin Time/Inr 04/14/[address] [facility] Main Lab [address] [place] [address] [phone] Prothrombin Time 14.7 seconds High 12.7-14.5 Inr 1.11 Normal 2 Laboratory test finding 04/14/2021 [facility] Main Lab [address] [place] [address] [phone] Partial Thromboplastin Time 42.2 seconds High 25 .9-37.0 3 Comprehensive Metabolic Profil 04/14/2021 [facility] Main Lab [address] [place] [address] [phone] Glucose, Fasting 135 mg/dL High 70-100 Blood Urea Nitrogen 18 mg/dL Normal 7-18 Creatinine For GFR 1.27 mg/dL Normal 0.70-1.30 Glomerular Filtration Rate > 60.0 Normal >49 4 Sodium Level 135 mEq/L Low 136-145 Potassium Serum 3.7 mEq/L Normal 3.5-5.1 Chloride Level 103 mEq/L Normal 98-107 Carbon Dioxide Level 27 mEq/L Normal 21-32 Anion Gap 5 mEq/L Low 8-16 Calcium Level 9.0 mg/dL Normal 8.8-10.2 Ast/Sgot 21 U/L Normal 7-37 Alt/SGPT 23 U/L Normal 12-78 Alkaline Phosphatase 85 U/L Normal 45-117 Bilirubin,Total 0.6 mg/dL Normal 0.2-1.0 Total Protein 7.6 GM/DL Normal 6.4-8.2 Albumin 3.4 GM/DL Normal 3.2-5.2 Albumin/Globulin Ratio 0.8 Normal Laboratory test finding 04/14/2021 [facility] Main Lab [address] [place], [place] [id number] [phone] Pathology Request For Service (SEE NOTE) 5 1 Units are mL/min/1.73 m2 Chronic Kidney Disease Staging per NKF: Stage I & II GFR >=60 Normal to Mildly Decreased Stage III GFR 30-59 Moderately Decreased Stage IV GFR 15-29 Severely Decreased Stage V GFR <15 Very Little GFR Left ESRD GFR <15 on ALARM MECHANISM ADJUSTER 2 THERAPUTIC HUMAN INR VALUES INDICATIONS NORMAL RANGES PROPHYLAXIS/TREATMENT OF: VENOUS THROMBOSIS 2.0-3.0 PULMONARY EMBOLISM 2.0-3.0 PREVENTION OF SYSTEMIC EMBOLISM FROM: TISSUE HEART VALVES 2.0-3.0 ACUTE MYOCARDIAL INFARCTION 2.0-3.0 VALVULAR HEART DISEASE 2.0-3.0 ATRIAL FIBRILLATION 2.0-3.0 MECHANICAL VALVES(HIGH RISK) 2.5-3.5 RECURRENT MYOCARDIAL INFARCTION 2.5-3.5 3 *Is patient on Anticoagulant s? N 4 Units are mL/min/1.73 m2 Chronic Kidney Disease Staging per NKF: Stage I & II GFR >=60 Normal to Mildly Decreased Stage III GFR 30-59 Moderately Decreased Stage IV GFR 15-29 Severely Decreased Stage V GFR <15 Very Little GFR Left ESRD GFR <15 on ALARM MECHANISM ADJUSTER 5 FINAL DIAGNOSIS Neck mass, excision: Benign skin showing dermal elastosis and slightly dilated vascular channels. Mild nonspecific chronic inflammation and focal foreign body type giant cell reaction is also noted. No malignancy is identified. Correlation with clinical and imaging findings is recommended. 04/15/2021 - 1322 CLINICAL DIAGNOSIS Anterior neck mass 04/14/2021 - 1506 GROSS DIAGNOSIS Received in formalin labeled "neck mass" is an approximately 12 x 4 x maximally 1.8 cm ellipsoid portion of skin, as well as a few additional fragments of mature adipose tissue. The skin surface does not reveal any gross lesion. Sectioning does not reveal any well-defined mass/lesion. Multiple circulation sales representative sections are submitted in (A1-A4), (A5) contains circulation sales representative from the ad ditional mature adipose tissue fragments. - 04/14/2021 - 1506 Signed Virginia Alamo MD 04/15/2021 1322 Procedures Date Code Description Status 05/13/2021 70654 Office/Outpatient Established Mo d MDM 30-39 Min Completed 05/13/2021 00975 Spirometry Completed 04/22/2021 19144 Office/Outpatient New Moderate M DM 45-59 Minutes Completed 04/14/2021 22753 Excision Tumor, Soft Tissue, Nec k/Thorax, Subfacial, 5 CM Or > Completed 04/14/2021 50467 Excision Tumor, Soft Tissue, Nec k/Thorax, Subfacial, 5 CM Or > Completed 04/06/2021 06664 Office/Outpatient Established Mo d MDM 30-39 Min Completed 03/10/2021 84601 Office/Outpatient Established Lo w MDM 20-29 Min Completed 03/10/2021 09207 Laryngoscopy Flexible Fiberoptic Diagnostic Completed 02/26/2021 63359 Office/Outpatient New Moderate M DM 45-59 Minutes Completed 02/17/2021 04776 Office/Outpatient Established Lo w MDM 20-29 Min Completed 02/17/2021 56163 Laryngoscopy Flexible Fiberoptic Diagnostic Completed 12/17/2020 30505 Laparoscopy Surgical Closure Of Enterostomy, Large Or Small Intes Completed 12/17/2020 19476 Laparoscopy Surgical Closure Of Enterostomy, Large Or Small Intes Completed 12/17/2020 21903 Laparoscopy Surgical Mobilization Take Down Of Splenic Flexure Pe Completed 12/10/2020 39788 Laryngoscopy Flexible Fiberoptic Diagnostic Completed Medical Devices Description No Information Available Encounters Type Date Location Provider Dx Diagnosis Office Visit 05/13/2021 8:30a [facility] Pulmonary/Thoracic Raven To TAM reza J44.9 Chronic obstructive pulmonary disease, u nspecified G47.33 Obstructive sleep apnea (aguilar lt) (pediatric) Z87.891 Personal history of nicotine dependence Office Visit 05/04/2021 8:30a [facility] Plastic Surgery Chasidy Pale y, DO Z48.817 Encntr for surgical aftcr fol surgery on the skin, subcu T81.31xA Disruption of external opera tion (surgical) wound, NEC, init Office Visit 04/22/2021 10:30a [facility] Plastic Surgery Chasidy Wright y, DO Z48.817 Encntr for surgical aftcr fol surgery on the skin, subcu Office Visit 04/22/2021 2:30p [facility] Gastroenterology Pra loniice Mirella Corbett, RPA-C R13.10 Dysphagia, unspecified K21.9 Gastro-esophageal reflux dis ease without esophagitis R93.3 Abnormal findings on dx imag ing of prt digestive tract Office Visit 04/21/2021 9:00a [facility] ENT Practice Badlomero Modi MD L57.8 Oth skin 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 R22.2 Localized swelling, mass and lump, trunk Z48.89 Encounter for other specifie d surgical aftercare Office Visit 04/06/2021 11:15a 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 ENT Practice Baldomero Modi MD C32.1 Malignant neoplasm of supraglottis D17.0 Prabhu lipomatous neoplm of ski n, subcu of head, face and neck Office Visit 02/05/2021 9:30a [facility] Surgery Practice Ángel Falcon MD Z93.3 Colostomy status K57.20 Dvtrcli of lg int w perforat ion and abscess w/o bleeding K59.00 Constipation, unspecified Z48.815 Encntr for surgical aftcr fo llowing surgery on the dgv sys Office Visit 01/01/2021 10:00a [facility] Practice Ángel Falcon MD Z93.3 Colostomy status K57.20 Dvtrcli of lg int w perforat ion and abscess w/o bleeding K59.00 Constipation, unspecified Z48.815 Encntr for surgical aftcr fo llowing surgery on the [facility] sys Office Visit 12/23/2020 1:45p [facility] Practice ERIK Álvarez Z93.3 Colostomy status R11.2 Nausea with vomiting, unspec ified Assessments Date Code Description Provider 05/13/2021 J44.9 Chronic obstructive pulmonary di sease, unspecified Raven Duncan, TAM 05/13/2021 G47.33 Obstructive sleep apnea (adult) (pediatric) Raven Duncan, TAM 05/13/2021 Z87.891 Personal history of nicotine dep endence Raven Duncan, TAM 05/04/2021 Z48.817 Encounter for surgic al aftercare following surgery on the skin and subcutaneous tissue Chasidy Kellogg, DO 05/04/2021 T81.31xA Disruption of tank builder al operation (surgical) wound, not elsewhere classified, initial encounter Chasidy Kellogg, DO 04/22/2021 Z48.817 Encounter for surgic al aftercare following surgery on the skin and subcutaneous tissue Chasidy Kellogg, DO 04/22/2021 R13.10 Dysphagia, unspecified Mirella A Alexisboaquiles, RPA-C 04/22/2021 K21.9 Gastro-esophageal reflux disease without esophagitis Mirella A Chelle, RPA-C 04/22/2021 R93.3 Abnormal findings on diagnostic imaging of other parts of digestive tract Mirella Corbett, RPA-C 04/21/2021 L57.8 Other skin changes d ue to chronic exposure to nonionizing radiation Baldomero Modi MD 04/21/2021 R22.2 Localized swelling, mass and lum p, trunk Baldomero Modi MD 04/21/2021 Z48.89 Encounter for other specified paulino rgical aftercare Baldomero Modi MD 04/14/2021 R22.1 Localized swelling, mass and lum p, neck Baldomero Modi MD 04/14/2021 L57.8 Other skin changes d ue to chronic exposure to nonionizing radiation Chasidy Angeles, DO 04/14/2021 L57.8 Other skin changes d ue to chronic exposure to nonionizing radiation Baldomero Modi MD 04/14/2021 Z85.21 Personal history of malignant ne oplasm of larynx Baldomero Modi MD 04/14/2021 Z85.21 Personal history of malignant ne oplasm of larynx Chasidy Angeles, DO 04/14/2021 R22.1 Localized swelling, mass and lum p, neck Chasidy Angeles, DO 04/06/2021 D17.0 Benign lipomatous ne oplasm of skin and subcutaneous tissue of head, face and neck Chasidy Angeles, DO 03/10/2021 D17.0 Benign lipomatous ne oplasm of skin and subcutaneous tissue of head, face and neck Baldomero Modi MD 03/10/2021 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 Baldomero Modi MD 02/26/2021 D17.0 Benign lipomatous ne oplasm of skin and subcutaneous tissue of head, face and neck Chasidy Angeles, DO 02/26/2021 L57.8 Other skin changes d ue to chronic exposure to nonionizing radiation Chasidy Angeles, DO 02/17/2021 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 Baldomero Modi MD 02/17/2021 D17.0 Benign lipomatous ne oplasm of skin and subcutaneous tissue of head, face and neck Baldomero Modi MD 02/05/2021 Z93.3 Colostomy status Robert turk MD 02/05/2021 K57.20 Diverticulitis of la rge intestine with perforation and abscess without bleeding Robert Falcon MD 02/05/2021 K59.00 Constipation Robert zheng MD 02/05/2021 Z48.815 Encounter for surgic al aftercare following surgery on the digestive system Robert Falcon MD 01/01/2021 Z93.3 Colostomy status Robert turk MD 01/01/2021 K57.20 Diverticulitis of la rge intestine with perforation and abscess without bleeding Robert Falcon MD 01/01/2021 K59.00 Constipation Robert zheng MD 01/01/2021 Z48.815 Encounter for surgic al aftercare following surgery on the digestive system Robert Falcon MD 12/23/2020 Z93.3 Colostomy status ERIK Burleson 12/23/2020 R11.2 Nausea with vomiting, unspecifie d ERIK Burleson 12/17/2020 Z43.3 Encounter for attention to colos gordon Schneider JR, MD 12/17/2020 K57.30 Diverticulosis of la rge intestine without perforation or abscess without bleeding Jeremy Schneider JR, MD 12/17/2020 Z43.3 Encounter for attention to colos gordon Robert Falcon MD 12/17/2020 K57.30 Diverticulosis of la rge intestine without perforation or abscess without bleeding Robert Falcon MD 12/10/2020 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 Pulmonary/Thoracic * 06/17/2021 2:20 pm - Murphy Hudson M.D. at [facility] Gastroenterology Practice * 06/08/2021 9:15 am - Murphy Hudson M.D. at [facility] Gastroenterology Practice * 06/15/2021 7:50 am - Umang Patel MD at [facility] ENT Practice 05/13/2021 - TAM Brantley* J44.9 Chronic obstructive pulmonary disease, unspecified * G47.33 Obstructive sleep apnea (adult) (pediatric) * Z87.891 Personal history of nicotine dependence * * New Labs:* FVL/[place], Ordered: 05/13/21 * Follow up:* Follow up December-January 2022 with fvl/spirometry. Functional Status Description No Information Available Mental Status Description No Information Available Referrals Refer to Reason for Referral Status Appt Date Murphy Hudson M.D. Closed [facility] [address] [facility], [address] [address] [phone] Murphy Hudson M.D. DYSPHAGIA Scheduled 04/13 [facility] [address] [facility], [address] [id number] [phone]
--- OUTSIDE RECORDS SUMMARY | 2021-06-08 08:16 | CCD ---
Author Author [facility] Organization [facility] Address Unknown Phone Unavailable Care Team Providers Care Tin Stacker Name Role Phone Kulwant, Nazia Unavailable PROBLEMS Type Condition ICD9-CM Code TOI52-CS Code Onset Dates Condition S tatus W/U Status Risk SNOMED Code Notes Problem Elevated blood sugar R73.9 Active confirmed 09702744 Problem Left wrist pain M25.532 Active confirmed 316 [id number] Problem Recurrent UTI N39.0 Active confirmed 322239 001 Problem Other chronic pain G89.29 Active confirmed 8 9139667 Problem Pain in left shoulder M25.512 Active confirmed 38338760 Problem Benign prostatic hyperplasia without lower urina ry tract symptoms N40.0 Active confirmed 410853647 Problem Hand lesion L98.9 Active confirmed 59461392 4 Problem Gastroesophageal reflux disease without esophagitis K21.9 Active confirmed 729192779 Problem Hypercholesterolemia E78.0 Active confirmed 39249965 Problem Chronic diastolic heart failure I50.32 Active confi rmed 927264597 Problem COPD (chronic obstructive pulmonary disease) J44.9 Active confirmed 36708147 He has fairly significant CO PD with no active exacerbation on his current controller inhaler therapy. Problem Body mass index (BMI) of 40.1 to 44.9 in adult Z68 .41 Active confirmed 162269148 Problem Anxiety F41.9 Active confirmed 50614512 Problem Atherosclerosis of [place] ronary artery of [place] heart without angina pectoris I25.10 Active confirmed [id number] He is r egularly followed by cardiology and has had a number of cardiac procedures. Please refer to his cardiology note of November 2020 for details. He has not had angina and has no evidence of CHF. He is on aspirin and statin therapy . Problem Preop testing Z01.818 Active confirmed 94499 9001 Problem Tubular adenoma of colon D12.6 Active confirmed 102725358 Problem Stage III chronic kidney disease N18.3 Active conf irmed 166903339 He has a history of stage III chronic kidney disease. However, his most recent GFR on April 07, 2021 was greater than sixty with a creatinine of 1.2. Problem S/P coronary artery stent placement Z95.5 Acti ve confirmed 921593371 Problem BPH (benign prostatic hypertrophy) with urinary obstructio n N40.1 Active confirmed 251406978 Problem Psoriasis L40.9 Active confirmed 0640142 Problem Hypertension I10 Active confirmed 1981051 3 He is currently on amlodipine therapy at 10 mg daily. Problem Pain in right knee M25.561 Active confirmed 98554338 Problem Hx of prostatitis Z87.438 Active confirmed 6 [id number] Problem BMI 40.0-44.9, adult Z68.41 Active confirmed 737248319 Problem GERD (gastroesophageal reflux disease) K21.9 A ctive confirmed 170814178 He is up-to-date with endoscopies and is treated with famotidine therapy. 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 Problem Bilateral hearing loss, unspecified hearing loss type H91.93 Active confirmed 03933234 Problem COPD exacerbation J44.1 Active confirmed 19 0742904 Problem Chronic back pain greater than 3 months duration M 54.9 Active confirmed 802476859 Problem Acute cystitis without hematuria N30.00 Active conf irmed 12127776 Problem Coronary angioplasty status Z98.61 Active confirmed 494028209 Problem Acquired lymphedema I89.0 Active confirmed 888053444 Problem Fatty liver K76.0 Active confirmed 26292526 7 Problem History of laryngeal cancer Z85.21 Active confirmed 101071468 This has been treated with radiation therapy and is apparently stable. He sees ENT regularly. Problem Colostomy status Z93.3 Active confirmed 161 761192 ALLERGIES Allergen (clinical drug ingredient) Drug/Non Drug Allergy do cumented on EMR Reaction Allergy Type Onset Date Status fluticasone Flonase headache Drug Allergy Active adenosine Adenosine([facility] Code:[address]-15) cardiac arrest Drug Josef rgy Active MARIA DE JESUS Inhibitors hyperkalemia Non Drug Allergy Ac tive morphine Morphine Sulfate([facility] Code:[address]-84) Hives/Itching Ronn g Allergy Active Arbs hyperkalemia Non Drug Allergy Active ENCOUNTERS from 1955 to 2021-05-01 Encounter Location Date Provider Diagnosis [place] [id number] [facility] [phone] [place] [address] Apr, 2021 Nazia Servage IMMUNIZATIONS Vaccine Route Administration Date Status COVID-19 dose #2 given elsewhere Unspecified Unknown Nov Administered COVID-19 dose #1 given elsewhere Unspecified Unknown Oct Administered Pneumococcal Adult 0.5mL Pneumovax 23 Unknown Apr 23 014 Administered Pneumococcal 0.5mL Prevnar 13 Unknown Sep 04, 2019 Ad ministered Influenza 6mo & up Fluzone Unknown December 25, 2015 Refus ed Influenza 6mo & up Fluzone Unknown Aug 11, 2015 Refus ed Influenza 6mo & up Fluzone Unknown Aug 06, 2015 Refus ed Influenza 6mo & up Fluzone Unknown January 09, 2015 Refus ed SOCIAL HISTORY Tobacco Use: Social History Observation Description Date Details (start date - stop date) Former Smoker Sex Assigned At : Social History Observation Description Sex Assigned At Unknown Education: Question Answer Notes Level of Education: Finished High School Audit Question Answer Notes Total Score: 0 Interpretation: Alcohol Education Jainism: Question Answer Notes Jainism 33 None Drug and Alcohol Question Answer Notes Total Score: 0 Interpretation: No problems reported Alcohol Screening: Question Answer Notes Did you have a drink containing alcohol in the past year? Ye s Points 1 Interpretation Negative How often did you have six or more drinks on one occas ion in the past year? Never (0 points) How many drinks did you have on a typica l day when you were drinking in the past year? 1 or 2 (0 points) How often did you have a drink containing alcohol in t he past year? Monthly or less (1 point) BMI Care Goal Follow-Up Question Answer Notes Above Normal BMI Follow-Up Giving encouragement to exercise Tobacco Use: Question Answer Notes Are you a: former smoker Smoking Cessation Information Given 02/20/2018 How long has it been since you last smoked? 1-3 months QUIT 08/28/2018 REASON FOR REFERRAL No Information VITAL SIGNS No information MEDICATIONS Medication SIG (Take, Route, Frequency, Duration) Notes Start Da te End Date Status Atorvastatin Calcium 20 MG 1 tablet Orally Once a day for 90 day (s) Oct, Active Qvar RediHaler 80 MCG/ACT 1 puff Inhalation Once a day Active Urea 20 % 1 application as needed Externally Once a day to hands for 30 days Active Fluticasone Propionate 50 MCG/ACT 1 spray in each nost ril Nasally Once a day for 30 day(s) Apr, Not-Taking Famotidine 40 MG 1 tablet at bedtime Orally Daily Active Percocet 10-325 MG 1 tablet as needed Orally every [address] 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 Hill-pain medications through his service Medical History hypertension Medical History hyperlipidemia Medical History Arthritis Medical History Orchitis;Orchididits Medical History GERD Medical History COPD Medical History Fatty Liver Disease Medical History tobacco abuse quit 07/10 Medical History obesity BMI 38.27 November 2014 Medical History CKD 3 usually runs in the office BUN 31 creatinine 1.8 GFR 41 Medical History tracheostomy due to epiglottitis in 1991 Medical History colonoscopy in 2006 in [place] reported as normal Medical History colonoscopy February 2017 5 poly ps removed, mild diverticulosis, 3 year follow-up Medical History stress test in [place] 2008 reported as normal Medical History cardiac cath 12/31/2015, LVE F 60-65%, severe 2 vessel CAD, KI to RCA and LCx 01/04; KI to RCA at intrastent stenosis and l Cx 06/07. Followed through Dr. Schmid Medical History hx MRSA, hospitalized Medical History ERIBERTO-CPAP Fall 2016 Medical History Upper GI Endoscopy with inse rtion of PEG Tube-Dr. Baltazar-08/2019 Medical History 08/29/[address] Acosta, PEG tube removed November 2019 Surgical History Tonsillectomy & Adenoidectomy As Child Surgical History Right Knee arthroscopy? Surgical History skin graft 1984 Surgical History Tracheostomy due to Epiglottis 1991 Surgical History Disccestomy 2006,2005 Surgical History Colonoscopy-[place] 2006 Surgical History left hip replacement-[place] 10/2008 Surgical History right hip replacement-[place] 12/02/08 Surgical History Lumbar Laminectomy 11/03/2008 Surgical History [place]-Cardiac stent 12/31/2015 Surgical History heart cath in [place] october [address] [facility] - CARDIAC STENT 05/2017 Surgical History cardiac catheterization [place] no stent s needed 2016 Surgical History colonoscopy for polyps remov ed. Mild diverticulosis. Polyps tubular adenoma 3 year follow-up due February 2020 03/04/2017 Surgical History TURP 07/05/2018 Surgical History heart stent 12/2018 Surgical History [facility] laryngoscopy wit h photomicrography and biopsy of lesion on the epiglottis-Dr. Modi 06/2019 Surgical History Cervical esophagoscopy- Dr. Modi 07/11 19 Surgical History Upper GI Endoscopy with insertion of PEG Tube-Dr. Baltazar 08/2019 Surgical History radiation for throat cancer 11/2019 Surgical History Sigmoid Colectomy with Ostomy 07/15/20 Surgical History Robotic colostomy reversal-Dr. Falcon 12/17/2020 Surgical History shorten colon last fall Surgical History Excision of chin mass-Dr. Reynoso 04/14/20 21 Hospitalization History Epididymitis 03/29/13- 04/09/13 Hospitalization History Orchiditis; Epididymitis with Absces s 12/26/2013 - 01/02/14 Hospitalization History Epoglotitis 1999 Hospitalization History Orchitis; Left Testicular Sw elling; Orchditis; Epididymitis 04/18/14 - 04/23/14 Hospitalization History groin cellulitis positive for MRSA 1 09/23-08/01 Hospitalization History [facility] 8 days 10/2016 Hospitalization History Syncope x3 days 03/2017 Hospitalization History Cellulitis at site of peg tu be, acute on chronic heart failure 09-04-09/06/2019 Hospitalization History feeding tube due to bacterial infect ion 07/2019 Hospitalization History scrotal cellulitis,orchitis @ [facility] - Hospitalization History colonoscopy 1 year follow up due 06/11 poor prep 1 polyp removed 06/04/20 Goals Section No Information Health Concerns No Information MEDICAL EQUIPMENT No Information MENTAL STATUS No Information FUNCTIONAL STATUS No Information ASSESSMENTS No Information PLAN OF TREATMENT Medication Medication Name Sig Start Date Stop Date Atorvastatin Calcium 20 MG 1 tablet Orally Once a day for 90 day(s) Oct, Next Appt Details Provider Name:Nazia L Kulwant, 08:00:00 AM, [address] [facility], , [place], [address], Insurance Providers Payer Name Payer Address Payer Phone Insured Name Patient Relati onship to Insured Coverage Start Date Coverage End Date [employer] [facility] [phone] [facility] [id number] [place] PENDING S[place] TO [facility] [employer] [facility] [address] [facility] [phone] [place] MED[place] Part A and B [address] [facility] [address] [phone] [place]
--- OUTSIDE RECORDS SUMMARY | 2021-06-08 08:16 | CCD | Continuity of Care Document ---
Author Author Foster JACKSON ANP Organization Unknown Address [address] [place] [address] Phone [phone] Care Team Providers Care Director Community Organization Name Role Phone LavonageNazia R.N. AUTM [phone] [facility] Rehab AUTM [phone] Robert Falcon MD AUTM [phone] [facility] Records AUTM [phone] Chantal Schmid M.D. AUTM [phone] Chasidy Reynoso D.O. AUTM [phone] Timmy Burns M.D. AUTM [phone] AUTM Unavailable Baldomero Modi M.D. AUTM [phone] Problems Active Problems Provider Date Obstructive sleep [...] is a former smoker Qu it 06/28/2019 Allergies, Adverse Reactions, Alerts Active Allergies Criticality Reaction | Severity Comments Date Adenosine Unable to assess criticality CARDIAC ARREST 01/27/2017 Morphine Unable to assess criticality HIVES 01/27/2017 Medications Active Medications SIG Qnty Indications Ordering Provide r Date Qvar Redihaler 80mcg/Act Aerosol inhale one puff by mouth twice a day 10.600gm TAM Brantley Perforomist 20mcg/2ML Nebulizer 1 vial inhaled via nebulizer twice a day 120ml WILLEM Brantley P 10/13/2020 Albuterol Sulfate (2 .5mg/3ML) 0.083% Nebulizer 1 vial four times a day as needed 360ml R06.02 TAM Briceno 10/02/2020 CPAP Device 13cm lcw G47.33 TAM Brantley 01/30/2020 Prilosec OTC 20mg Tablets DR 1 tab by mouth every day 60tabs Unknown Oxygen Device 2 l bled into CPAP (Slezka?) Unknown Amlodipine Besylate 10mg Tablets 1 tab by mouth every day Unknown Percocet 5-325mg Tablets 2 by mouth every 4 hours prn pain Unknown Aspirin [address] 1 [...] @ 6am morning of surg 3tabs Robert Faclon MD 12/10/2020 - 12/22/2020 Neomycin Sulfate 500mg [...] Available Vital Signs Date Vital Result Comment 05/13/2021 8:23am BP Systolic 126 mmHg BP Diastolic 85 mmHg Heart Rate 88 /min O2 % BldC Oximetry 99 % Height 72 inches 6'0" Weight 231.00 lb BMI (Body Mass Index) 31.3 kg/m2 [place] Body Weight 178 lb Weight 104.782 kg BSA (Body Surface Area) 2.27 m2 05/04/2021 8:34am BP Systolic 158 mmHg BP Diastolic 90 mmHg Heart Rate 86 /min Respiratory Rate 20 /min Body Temperature 97.6 F Height 72 inches 6'0" [place] [facility] Weight 178 lb Results Test Acquired Date Facility Test Result H/L Range Note FVL/[place] 05/13/2021 [facility] SEE IMAGE FVC-Pred 4.98 L FVC-Pre 3.35 L FVC-%Pred-Pre 67 L FVC-LLN 3.99 L Fev1-Pred 3.73 L Fev1-Pre 2.17 L Fev1-%Pred-Pre 58 L Fev1-LLN 2.89 L Fev6-Pred 4.74 L Fev6-Pre 3.33 L Fev6-%Pred-Pre 70 L Fev6-LLN 3.78 L Hwa1qur-Zfgw 75 % Nby4cpc-Tae 65 % Dpy4dli-%Pred-Pre 86 % Wzx3lun-LPJ 65 % Jwp2hjz-Tyhg 95 % Tgn8xqp-Vku 99 % Rnu1gab-%Pred-Pre 104 % FEFMax-Pred 9.37 L/E/sec FEFMax-Pre 4.03 L/E/sec FEFMax-%Pred-Pre 42 L/E/sec FEFMax-LLN 6.91 L/E/sec Tfn7555-Cruy 2.96 L/E/sec Jlm8005-Isk 1.20 L/E/sec Hmv2497-%Pred-Pre 40 L/E/sec Mgw5960-JER 1.27 L/E/sec ExpTime-Pre 7.46 sec Knp6owc4-Wrrt 78 % Clj5uyq1-Lzb 65 % Hiz4ken9-%Pred-Pre 82 % Hkx3cqk6-ESE 69 % Complete Blood Count 04/15/2021 [facility] [address] [place] [address] [phone] White Blood Count 8.4 10 Normal 4.0-10.0 [...] % Normal 0-0 Basic Metabolic Profile 04/15/2021 [facility] [address] [place] [address] [phone] Glucose, Fasting 151 mg/dL High 70-100 Blood [...] mg/dL Normal 8.8-10.2 CBC With Differential 04/14/2021 [facility] [address] [place] [address] [phone] White Blood Count 4.9 10 Normal 4.0-10.0 [...] 36.0-66.0 Lymph % 12.5 % Low 24.0-44.0 [place] % 1.6 % Low 2.0-8.0 Eos % 0.0 % Normal 0.0-3.0 Baso % 0.4 % Normal 0.0-1.0 Immature Granulocyte % 0.4 % Normal 0-3.0 Nucleated Red Blood Cell % 0.0 % Normal 0-0 Neutrophils # 4.2 10 Normal 1.5-8.5 Lymph # 0.6 10 Low 1.5-5.0 [place] # 0.1 10 Normal 0.0-0.8 Eos # 0.0 10 Normal 0.0-0.5 Baso # 0.0 10 Normal 0.0-0.2 Prothrombin Time/Inr 04/14/2021 [facility] [address] [place] [address] [phone] Prothrombin Time 14.7 seconds High 12.7-14.5 Inr 1.11 Normal 2 Laboratory test finding 04/14/2021 [facility] [address] [place] [address] [phone] Partial Thromboplastin Time 42.2 seconds High 25 .9-37.0 3 Comprehensive Metabolic Profil 04/14/2021 [facility] [address] [place] [address] [phone] Glucose, Fasting 135 mg/dL High 70-100 Blood [...] Ratio 0.8 Normal Laboratory test finding 04/14/2021 [facility] [address] [place] [address] [phone] Pathology Request For Service (SEE NOTE) 5 FVL/[place] 11/26/2020 [facility] SEE IMAGE FVC-Pred 4.98 L FVC-Pre 3.29 L FVC-%Pred-Pre 66 L FVC-LLN 3.99 L Fev1-Pred 3.73 L Fev1-Pre 2.19 L Fev1-%Pred-Pre 58 L Fev1-LLN 2.89 L Fev6-Pred 4.74 L Fev6-Pre 3.25 L Fev6-%Pred-Pre 68 L Fev6-LLN 3.78 L Knv6sew-Yypm 75 % Sii6xgf-Mor 67 % Ukl5ght-%Pred-Pre 89 % Bmo8zbh-SKV 65 % Uqh8gbf-Icxl 95 % Lke5ogb-Yqe 99 % Pfc1yha-%Pred-Pre 103 % FEFMax-Pred 9.37 L/E/sec FEFMax-Pre 3.26 L/E/sec FEFMax-%Pred-Pre 34 L/E/sec FEFMax-LLN 6.91 L/E/sec Zzn6065-Doyk 2.96 L/E/sec Acv5906-Wlq 1.36 L/E/sec Elk5416-%Pred-Pre 45 L/E/sec Unr2125-FZL 1.27 L/E/sec ExpTime-Pre 6.76 sec Zfg9fjr6-Ynnk 78 % Brl8rvp0-Zwr 67 % Zvh1vqq3-%Pred-Pre 85 % Pcn6uxc8-LMQ 69 % 1 Units are mL/min/1.73 m2 Chronic Kidney Disease Staging per NKF: Stage I & II GFR >=60 Normal to Mildly Decreased Stage III GFR 30-59 Moderately Decreased Stage IV GFR 15-29 Severely Decreased Stage V GFR <15 Very Little GFR Left ESRD GFR <15 on JAVA WEB ARCHITECT 2 THERAPUTIC HUMAN INR VALUES INDICATIONS NORMAL [...] Little GFR Left ESRD GFR <15 on JAVA WEB ARCHITECT 5 FINAL DIAGNOSIS Neck mass, excision: Benign skin showing dermal elastosis and slightly dilated vascular channels. Mild nonspecific chronic inflammation and focal foreign body type giant cell reaction is also noted. No malignancy is identified. Correlation with clinical and imaging findings is recommended. 04/15/2021 - 1321 CLINICAL DIAGNOSIS Anterior neck mass 04/14/2021 - 1505 GROSS DIAGNOSIS Received in formalin labeled "neck mass" is an approximately 12 x 4 x maximally 1.8 cm ellipsoid portion of skin, as well as a few additional fragments of mature adipose tissue. The skin surface does not reveal any gross lesion. Sectioning does not reveal any well-defined mass/lesion. Multiple senior sales representative sections are submitted in (A1-A4), (A5) contains senior sales representative from the ad ditional mature adipose tissue fragments. - 04/14/2021 - 150 Signed Virginia Alamo MD 04/15/2021 1322 Procedures Date Code Description Status 04/22/2021 82197 Office/Outpatient New Moderate M DM 45-59 Minutes Completed 04/14/2021 32053 Excision Tumor, Soft Tissue, Nec k/Thorax, Subfacial, 5 CM Or > Completed 04/14/2021 40756 Excision Tumor, Soft Tissue, Nec k/Thorax, Subfacial, 5 CM Or > Completed 04/06/2021 36169 Office/Outpatient Established Mo d MDM 30-39 Min Completed 03/10/2021 94259 Office/Outpatient Established Lo w MDM 20-29 Min Completed 03/10/2021 17957 Laryngoscopy Flexible Fiberoptic Diagnostic Completed 02/26/2021 77454 Office/Outpatient New Moderate M DM 45-59 Minutes Completed 02/17/2021 65291 Office/Outpatient Established Lo w MDM 20-29 Min Completed 02/17/2021 96603 Laryngoscopy Flexible Fiberoptic Diagnostic Completed 12/17/2020 11066 Laparoscopy Surgical Closure Of Enterostomy, Large Or Small Intes Completed 12/17/2020 79374 Laparoscopy Surgical Closure Of Enterostomy, Large Or Small Intes Completed 12/17/2020 66073 Laparoscopy Surgical Mobilization Take Down Of Splenic Flexure Pe Completed 12/10/2020 79975 Laryngoscopy Flexible Fiberoptic Diagnostic Completed 11/26/2020 57464 Office/Outpatient Established Mo d MDM 30-39 Min Completed 11/26/2020 46650 Spirometry Completed Medical Devices Description No Information Available Encounters Type Date Location Provider Dx Diagnosis Office Visit 05/04/2021 8:30a [facility] Chasidy figueroa, DO Z48.817 Encntr for surgical aftcr fol surgery on the skin, subcu T81.31xA Disruption of external opera tion (surgical) wound, NEC, init Office Visit 04/22/2021 10:30a [facility] Chasidy figueroa, DO Z48.817 Encntr for surgical aftcr fol surgery on the skin, subcu Office Visit 04/22/2021 2:30p [facility] Pra yanna Corbett, RPA-C R13.10 Dysphagia, unspecified K21.9 Gastro-esophageal reflux dis ease without esophagitis R93.3 Abnormal findings on dx imag ing of prt digestive tract Office Visit 04/21/2021 9:00a [facility] Baldomero Modi MD L57.8 Oth skin 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 R22.2 Localized swelling, mass and lump, trunk Z48.89 Encounter for other specifie d surgical aftercare Office Visit 04/06/2021 11:15a [facility] Chasidy Reynoso DO 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, subcu of head, face and neck Office Visit 03/10/2021 10:00a [facility] Baldomero Modi MD 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, subcu of head, 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 Office Visit 02/26/2021 11:00a [facility] Chasidy Reynoso DO 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, subcu of head, face and neck L57.8 Oth skin 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 Office Visit 02/17/2021 9:15a [facility] Baldomero Modi MD C32.1 Malignant neoplasm of supraglottis D17.0 Prabhu lipomatous neoplm of ski n, subcu of head, face and neck Office Visit 02/05/2021 9:30a [facility] Ángel Falcon MD Z93.3 Colostomy status K57.20 Dvtrcli of lg int w perforat ion and abscess w/o bleeding K59.00 Constipation, unspecified Z48.815 Encntr for surgical aftcr [facility] Office Visit 01/01/2021 10:00a [facility] Ángel Falcon MD Z93.3 Colostomy status K57.20 Dvtrcli of lg int w perforat ion and abscess w/o bleeding K59.00 Constipation, unspecified Z48.815 Encntr for surgical aftcr fo llowing surgery on the dgv sys Office Visit 12/23/2020 1:45p [facility] ERKI Álvarez Z93.3 Colostomy status R11.2 Nausea with vomiting, unspec ified Office Visit 11/26/2020 9:00a [facility] Raven To TAM reza G47.33 Obstructive sleep apnea (adult) (pediatr ic) J44.9 Chronic obstructive pulmonar y disease, unspecified Z87.891 Personal history of nicotine dependence Assessments Date Code Description Provider 05/13/2021 J44.9 Chronic obstructive pulmonary di sease, unspecified Raven Jackson, ANP 05/13/2021 G47.33 Obstructive sleep apnea (adult) (pediatric) Raven Jackson, ANP 05/13/2021 Z87.891 Personal history of nicotine dep endence Raven Jackson, ANP 05/04/2021 Z48.817 Encounter for surgic al aftercare following surgery on the skin and subcutaneous tissue Chasidy Angeles, DO 05/04/2021 T81.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, not elsewhere classified, initial encounter Chasidy Angeles, DO 04/22/2021 Z48.817 Encounter for surgic al aftercare following surgery on the skin and subcutaneous tissue Chasidy Reynoso, DO 04/22/2021 R13.10 Dysphagia, unspecified Mirella Pack Sandraduncanboaqulies, [facility] 04/22/2021 K21.9 Gastro-esophageal reflux disease without esophagitis Mirella Espinozaboaquiles, [facility] 04/22/2021 R93.3 Abnormal findings on diagnostic imaging of other parts of digestive tract Mirella Gomesaquiles, [facility] 04/21/2021 L57.8 Other skin changes d ue [...] to chronic exposure to nonionizing radiation Chasidy Reynoso, DO 04/14/2021 L57.8 Other skin changes d ue to chronic exposure to nonionizing radiation Baldomero Modi MD 04/14/2021 Z85.21 Personal history of malignant ne oplasm of larynx Baldomero Modi MD 04/14/2021 Z85.21 Personal history of malignant ne oplasm of larynx Chasidy Reynoso, DO 04/14/2021 R22.1 Localized swelling, mass and lum p, neck Chasidy Reynoso, DO 04/06/2021 D17.0 Benign lipomatous ne oplasm [...] to chronic exposure to nonionizing radiation Chasidy Reynoso, DO 02/17/2021 C32.1 Malignant neoplasm of supraglott [...] 12/17/2020 Z43.3 Encounter for attention to colos gordonhenry Schneider JR, MD 12/17/2020 K57.30 Diverticulosis of la rge intestine without perforation or abscess without bleeding Jeremy Schneider JR, MD 12/17/2020 Z43.3 Encounter for attention to colos gordon Robert Falcon MD 12/17/2020 K57.30 Diverticulosis of la rge intestine without perforation or abscess without bleeding Robert Falcon MD 12/10/2020 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 Baldomero Modi MD 11/26/2020 G47.33 Obstructive sleep apnea (adult) (pediatric) TAM Brantley 11/26/2020 J44.9 Chronic obstructive pulmonary di sease, unspecified TAM Brantley 11/26/2020 Z87.891 Personal history of nicotine dep endence TAM Brantley 11/25/2020 J44.9 Chronic obstructive pulmonary di sease, unspecified TAM Brantley 11/25/2020 G47.33 Obstructive sleep apnea (adult) (pediatric) TAM Brantley Plan of Treatment Future Appointment(s):* 01/27/2022 8:30 am - TAM Brantley at [facility] * 06/17/2021 2:20 pm - Murphy Hudson M.D. at [facility] * 06/08/2021 11:30 am - Murphy Hudson M.D. at [facility] * 06/05/2021 8:30 am - Chasidy Reynoso DO at [facility] * 06/15/2021 7:50 am - Umang Patel MD at [facility] 05/13/2021 - TAM Brantley* J44.9 Chronic obstructive pulmonary disease, unspecified * G47.33 Obstructive sleep apnea (adult) (pediatric) * Z87.891 Personal history of nicotine dependence * * New Labs:* FVL/Eleno, Ordered: 05/13/21 * Follow up:* Follow up December-January 2022 with fvl/spirometry. Functional Status Description No Information Available Mental Status Description No Information Available Referrals Refer to Dr Reason for Referral Status Appt Date Murphy Hudson M.D. Closed [facility]- [address] [facility], [address] [address] [phone] Murphy Hudson M.D. DYSPHAGIA Scheduled 04/13 [facility]- [address] [address] [phone]
--- OUTSIDE RECORDS SUMMARY | 2021-06-08 08:16 | CCD ---
Author Author [facility] [employer] Organization [facility] [employer] Address Unknown Phone Unavailable Care Team Providers Care Automotive Wholesale [employer] Advisor Name Role Phone Kulwant, Nazia Unavailable PROBLEMS Type Condition ICD9-CM Code [id number] Code Onset Dates Condition S tatus W/U Status Risk SNOMED Code Notes Problem Elevated blood sugar R73.9 Active confirmed 27474276 Problem Left wrist pain M25.532 Active confirmed 316 348832718040 Problem Recurrent UTI N39.0 Active confirmed 838437 001 Problem Other chronic pain G89.29 Active confirmed 8 0430641 Problem Pain in left shoulder M25.512 Active confirmed 51537848 Problem Benign prostatic hyperplasia without lower urina ry tract symptoms N40.0 Active confirmed 233881270 Problem Hand lesion L98.9 Active confirmed 96398201 4 Problem Gastroesophageal reflux disease without esophagitis K21.9 Active confirmed 406315871 Problem Hypercholesterolemia E78.0 Active confirmed 93712721 Problem Chronic diastolic heart failure I50.32 Active confi rmed 802621040 Problem COPD (chronic obstructive pulmonary disease) J44.9 Active confirmed 66177883 He has fairly significant CO PD with no active exacerbation on his current controller inhaler therapy. Problem Body mass index (BMI) of 40.1 to 44.9 in adult Z68 .41 Active confirmed 911826307 Problem Anxiety F41.9 Active confirmed 27204441 Problem Atherosclerosis of [place] co ronary artery of [place] heart without angina pectoris I25.10 Active confirmed 9785848358439 He is r egularly followed by cardiology and has had a number of cardiac procedures. Please refer to his cardiology note of November 2020 for details. He has not had angina and has no evidence of CHF. He is on aspirin and statin therapy . Problem Preop testing Z01.818 Active confirmed 74468 9001 Problem Tubular adenoma of colon D12.6 Active confirmed 234568660 Problem Stage III chronic kidney disease N18.3 Active conf irmed 431021322 He has a history of stage III chronic kidney disease. However, his most recent GFR on April 07, 2021 was greater than sixty with a creatinine of 1.2. Problem S/P coronary artery stent placement Z95.5 Acti ve confirmed 019087776 Problem BPH (benign prostatic hypertrophy) with urinary obstructio n N40.1 Active confirmed 002042051 Problem Psoriasis L40.9 Active confirmed 3120362 Problem Hypertension I10 Active confirmed 5728858 3 He is currently on amlodipine therapy at 10 mg daily. Problem Pain in right knee M25.561 Active confirmed 12778360 Problem Hx of prostatitis Z87.438 Active confirmed 6 31012595233138 Problem BMI 40.0-44.9, adult Z68.41 Active confirmed 834199090 Problem GERD (gastroesophageal reflux disease) K21.9 A ctive confirmed 870064932 He is up-to-date with endoscopies and is treated with famotidine therapy. 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 Problem Bilateral hearing loss, unspecified hearing loss type H91.93 Active confirmed 28257988 Problem COPD exacerbation J44.1 Active confirmed 19 2758083 Problem Chronic back pain greater than 3 months duration M 54.9 Active confirmed 889334264 Problem Acute cystitis without hematuria N30.00 Active conf irmed 65240671 Problem Coronary angioplasty status Z98.61 Active confirmed 190812154 Problem Acquired lymphedema I89.0 Active confirmed 513564552 Problem Fatty liver K76.0 Active confirmed 06989994 7 Problem History of laryngeal cancer Z85.21 Active confirmed 763225249 This has been treated with radiation therapy and is apparently stable. He sees ENT regularly. Problem Colostomy status Z93.3 Active confirmed 161 820829 ALLERGIES Allergen (clinical drug ingredient) Drug/Non Drug Allergy do cumented on EMR Reaction Allergy Type Onset Date Status fluticasone Flonase headache Drug Allergy Active adenosine Adenosine([facility] Code:[address]-33) cardiac arrest Drug Josef rgy Active MARIA DE JESUS Inhibitors hyperkalemia Non Drug Allergy Ac tive morphine Morphine Sulfate([facility] Code:[address]-91) Hives/Itching Ronn g Allergy Active Arbs hyperkalemia Non Drug Allergy Active ENCOUNTERS from 1955 to 2021-05-05 Encounter Location Date Provider Diagnosis [place] [address] [facility] [phone] [place] [address] 13 Apr, 2021 Nazia Servage IMMUNIZATIONS Vaccine Route [...] Notes Total Score: 0 Interpretation: Alcohol Education Sikhism: Question Answer Notes Sikhism 33 None Drug and Alcohol Question Answer [...] day for 90 day (s) Oct, Active Fluticasone Propionate 50 MCG/ACT 1 spray in each nost ril Nasally Once a day for 30 day(s) Apr, Not-Taking Famotidine 40 MG 1 tablet at bedtime Orally Daily for 30 days Active Urea 20 % 1 application as needed Externally Once a day to hands for 30 days Active Perforomist 20 MCG/2ML 2 ml Inhalation Twice a day Active Percocet 10-325 MG 1 tablet as needed Orally every [address] [place] Active Qvar RediHaler 80 MCG/ACT 1 puff Inhalation Once a day Active Clobetasol Propionate 0.05 % 1 application Externally Twice a day for 30 day(s) Active CPAP Machine Active amLODIPine Besylate 10 MG 1 tablet Orally Once a day for 90 days Active Aspirin 81 81 MG 1 tablet Orally Once a day Active Ventolin HFA 108 (90 Base) MCG/ACT 2 puffs Inhalation every 4 hours as needed for 90 days Active PROCEDURES No Information RESULTS No Results REASON FOR VISIT refill MEDICAL (GENERAL) HISTORY Type Description Date Medical [...] Surgical History Lumbar Laminectomy 11/03/2008 Surgical History [place]-Cardiac stent 12/31/2015 Surgical History heart cath in [place] october [address] [facility] - [...] positive for MRSA 1 09/23-08/01 Hospitalization History Spqfcaq-[facility]-Drln 8 days 10/2016 Hospitalization History Syncope x3 days 03/2017 Hospitalization History Cellulitis at site of peg tu be, acute on chronic heart failure 09-04-09/06/2019 Hospitalization History feeding tube due to bacterial infect ion 07/2019 Hospitalization History scrotal cellulitis,orchitis @ [facility] - Hospitalization History colonoscopy 1 year follow up due 06/11 poor prep 1 polyp removed 06/04/20 Goals Section No Information Health Concerns No Information MEDICAL EQUIPMENT No Information MENTAL STATUS No Information FUNCTIONAL STATUS No Information ASSESSMENTS No Information PLAN OF TREATMENT Medication Medication Name Sig Start Date Stop Date Famotidine 40 MG 1 tablet at bedtime Orally Daily for 30 days Atorvastatin Calcium 20 MG 1 tablet Orally Once a day for 90 day(s) Oct, Next Appt Details Provider Name:Nazia Sophie Blum, 08:00:00 AM, [address] [facility], , [place], [address], Insurance Providers Payer Name Payer Address Payer Phone Insured Name Patient Relati onship to Insured Coverage Start Date Coverage End Date [facility] [address] [facility] [phone] [place] [facility] [phone] [facility] [id number] [place] MEDICARE Part A and B [address] [facility] [address] [phone] [employer]
--- OUTSIDE RECORDS SUMMARY | 2021-06-08 08:16 | CCD ---
Author Author [facility] Organization [facility] Address Unknown Phone Unavailable Care Team Providers Care Ham Doctor Name Role Phone Lavonage, Nazia Unavailable PROBLEMS Type Condition ICD9-CM Code VQC01-EG Code Onset Dates Condition S tatus W/U Status Risk SNOMED Code Notes Problem Recurrent UTI N39.0 Active confirmed 343508 001 Problem Pain in left shoulder M25.512 Active confirmed 30608238 Problem Left wrist pain M25.532 Active confirmed 316 [id number] Problem Hand lesion L98.9 Active confirmed 41875877 4 Problem Other chronic pain G89.29 Active confirmed 8 3297251 Problem COPD exacerbation J44.1 Active confirmed 19 4103758 Problem Benign prostatic hyperplasia without lower urina ry tract symptoms N40.0 Active confirmed 876759742 Problem Gastroesophageal reflux disease without esophagitis K21.9 Active confirmed 838906810 Problem Anxiety F41.9 Active confirmed 47127575 Problem 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 Please refer to his cardiology note of November 2020 for details. He has not had angina and has no evidence of CHF. He is on aspirin and statin therapy . Problem S/P coronary artery stent placement Z95.5 Acti ve confirmed 648282178 Problem Pain in right knee M25.561 Active confirmed 90041188 Problem BPH (benign prostatic hypertrophy) with urinary obstructio n N40.1 Active confirmed 852497506 Problem Tubular adenoma of colon D12.6 Active confirmed 547065708 Problem Fatty liver K76.0 Active confirmed 28083743 7 Problem Recurrent sinusitis J32.9 Active confirmed 543354515 Problem Tobacco abuse Z72.0 Active confirmed 061466 05 Problem Psoriasis L40.9 Active confirmed 4134751 Problem Hypertension I10 Active confirmed 6669349 3 He is currently on amlodipine therapy at 10 mg daily. Problem Chronic diastolic heart failure I50.32 Active confi rmed 676381567 Problem COPD (chronic obstructive pulmonary disease) J44.9 Active confirmed 06142324 He has fairly significant CO PD with no active exacerbation on his current controller inhaler therapy. Problem BMI 40.0-44.9, adult Z68.41 Active confirmed 760198736 Problem GERD (gastroesophageal reflux disease) K21.9 A ctive confirmed 096348844 He is up-to-date with endoscopies and is treated with famotidine therapy. Problem Hypertensive chronic kidney disease, stage 1-4 or unspecified chronic kidney disease I12.9 Active confirmed [id number] Problem Status post colectomy Z90.49 Active confirmed 228438959 Problem Acquired lymphedema I89.0 Active confirmed 886299644 Problem Bilateral hearing loss, unspecified hearing loss type H91.93 Active confirmed 90694435 Problem Acute cystitis without hematuria N30.00 Active conf irmed 42427106 Problem BMI 31.0-31.9,adult Z68.31 Active confirmed 141346557 Problem Sleep apnea, unspecified type G47.30 Active confirm ed 12034069 He is on therapy and should bring his CPAP machine to the hospital for use after surgery. Problem Hx of prostatitis Z87.438 Active confirmed 6 90459696900882 Problem Preop testing Z01.818 Active confirmed 15958 9001 Problem Stage III chronic kidney disease N18.3 Active conf irmed 482481072 He has a history of stage III chronic kidney disease. However, his most recent GFR on April 07, 2021 was greater than sixty with a creatinine of 1.2. Problem Coronary angioplasty status Z98.61 Active confirmed 626208083 Problem Colostomy status Z93.3 Active confirmed 161 813108 Problem Chronic back pain greater than 3 months duration M 54.9 Active confirmed 201411565 Problem Diverticulitis of large inte craig with perforation and abscess without bleeding K57.20 Active confirmed 3983918 Problem History of laryngeal cancer Z85.21 Active confirmed 944715477 This has been treated with radiation therapy and is apparently stable. He sees ENT regularly. ALLERGIES Allergen (clinical drug ingredient) Drug/Non Drug Allergy do cumented on EMR Reaction Allergy Type Onset Date Status fluticasone Flonase headache Drug Allergy Active adenosine Adenosine([facility] Code:[address]-92) cardiac arrest Drug Josef rgy Active MARIA DE JESUS Inhibitors hyperkalemia Non Drug Allergy Ac tive morphine Morphine Sulfate([facility] Code:[address]-07) Hives/Itching Ronn g Allergy Active Arbs hyperkalemia Non Drug Allergy Active ENCOUNTERS from 1955 to 2021-05-19 Encounter Location Date Provider Diagnosis [address] [phone] [place] [address] Apr, Nazia Servage History of laryngeal cancer Z85.21 ; Atherosclerosis of nondalton coronary artery of nondalton heart without angina pectoris I25.10 ; Hypertension I10 ; Stage III chronic kidney disease N18.3 ; COPD (chronic obstructive pulmonary disease) J44.9 ; Sleep apnea, unspecified type G47.30 ; GERD (gastroesophageal reflux disease) K21.9 ; Tobacco abuse Z72.0 ; Chronic back pain greater than 3 months duration M54.9 ; Acute recurrent frontal sinusitis J01.11 and BMI 31.0-31.9,adult Z68.31 IMMUNIZATIONS Vaccine Route Administration Date Status COVID-19 [...] Notes Total Score: 0 Interpretation: Alcohol Education Episcopalian: Question Answer Notes Episcopalian 33 None Drug and Alcohol Question Answer [...] REASON FOR REFERRAL No Information VITAL SIGNS Weight 228.6 lbs Apr, Weight-kg 103.69 kg Apr, Height 72 in Apr, BMI 31.00 kg/m2 Apr, Heart Rate 86 /min Apr, Respiratory Rate 18 /min Apr, Temperature 97.2 degrees Fahrenheit Apr, Oximetry 100 Apr, Blood pressure systolic 138 mm Hg Apr, Blood pressure diastolic 78 mm Hg Apr, MEDICATIONS Medication SIG (Take, Route, Frequency, Duration) Notes Start Da te End Date Status Urea 20 % 1 application as needed Externally Once a day to hands for 30 days Active Perforomist 20 MCG/2ML 2 ml Inhalation Twice a day Active CPAP Machine Active Qvar RediHaler 80 MCG/ACT 1 puff Inhalation Once a day Active Doxycycline Hyclate 100 MG 1 tablet Orally bid for 10 day(s) Apr, Active Famotidine 40 MG 1 tablet at bedtime Orally Daily for 30 days Active Atorvastatin Calcium 20 MG 1 tablet Orally Once a day for 90 day (s) Oct, Active Ventolin HFA 108 (90 Base) MCG/ACT 2 puffs Inhalation every 4 hours as needed for 90 days Active Percocet 10-325 MG 1 tablet as needed Orally every [address] Hill Active Clobetasol Propionate 0.05 % 1 application Externally Twice a day for 30 day(s) Active Aspirin 81 81 MG 1 tablet Orally Once a day Active amLODIPine Besylate 10 MG 1 tablet Orally Once a day for 90 days Active PROCEDURES No Information RESULTS No Results REASON FOR VISIT 3 Months routine MEDICAL (GENERAL) HISTORY Type Description Date Medical [...] 1991 Medical History colonoscopy in 2006 in [place] reported as normal Medical History colonoscopy February 2017 5 poly ps removed, mild diverticulosis, 3 year follow-up Medical History stress test in [place] 2008 reported as normal Medical History cardiac [...] As Child Surgical History Right Knee arthroscopy? 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 - CARDIAC STENT 05/2017 Surgical History cardiac catheterization [place] no stent s needed 2016 Surgical History [...] Surgical History Excision of chin mass-Dr. Reynoso " fried fat from radiation" 04/14/2021 Hospitalization History Epididymitis 03/29/13- 04/09/13 Hospitalization History Orchiditis; Epididymitis with Absces s 12/26/2013 - 01/02/14 Hospitalization History Epoglotitis 1999 Hospitalization History Orchitis; Left Testicular Sw elling; Orchditis; Epididymitis 04/18/14 - 04/23/14 Hospitalization History groin cellulitis positive for MRSA 1 09/23-08/01 Hospitalization History [id number]-[id number] 8 days 10/2016 Hospitalization History Syncope x3 days 03/2017 Hospitalization History Cellulitis at site of peg tu be, acute on chronic heart failure 09-04-09/06/2019 Hospitalization History feeding tube due to bacterial infect ion 07/2019 Hospitalization History scrotal cellulitis,orchitis @ [facility] - Hospitalization History colonoscopy 1 year follow up due 06/11 poor prep 1 polyp removed 06/04/20 Hospitalization History over night for throat lump removal. 03/2021 Goals Section No Information Health Concerns No Information MEDICAL EQUIPMENT No Information MENTAL STATUS No Information FUNCTIONAL STATUS No Information ASSESSMENTS Encounter Date Diagnosis Assessment Notes Treatment Notes Treatm ent Clinical Notes Apr, History of laryngeal cancer (ICD-10 - Z8 5.21) This has been treated with radiation therapy and is apparently stable. He sees ENT regularly. Dr. Vega notes above reviewed Apr, Atherosclerosis of nondalton co ronary artery of nondalton heart without angina pectoris (ICD-10 - I25.10) He is regularly followed by cardiology a nd has had a number of cardiac procedures. Please refer to his cardiology note of November 2020 for details. He has not had angina and has no evidence of CHF. He is on aspirin and statin therapy . Apr, Hypertension (ICD-10 - I10) He is rainer bender on amlodipine therapy at 10 mg daily. meets goal today Apr, Stage III chronic kidney disease (ICD-10 - N18.3) He has a history of stage III chronic kidney disease. However, his most recent GFR on April 07, 2021 was greater than sixty with a creatinine of 1.2. Apr, COPD (chronic obstructive pulmonary dise ase) (ICD-10 - J44.9) He has fairly significant COPD with no active exacerbation on his current controller inhaler therapy. variable with weather Apr, Sleep apnea, unspecified type (ICD-10 - G47.30) He is on therapy and should bring his CPAP machine to the hospital for use after surgery. Apr, GERD (gastroesophageal reflux disease) ( ICD-10 - K21.9) He is up-to-date with endoscopies and is treated with famotidine therapy. States that he join the Zantac class action lawsuit Apr, Tobacco abuse (ICD-10 - Z72.0) encourage once again to quit smoking. Apr, Chronic back pain greater than 3 months duration (ICD-10 - M54.9) Has followed with Dr. Aly Hill for numerous years, continues with Percocet for pain relief through his practice Apr, Acute recurrent frontal sinusitis (ICD-10 - J01. 11) treated Apr, BMI 31.0-31.9,adult (ICD-10 - Z68.31) has lost significant amount of weight 228.6 pounds, states he feels much better and actually can do things better PLAN OF TREATMENT Medication Medication Name Sig Start Date Stop Date Doxycycline Hyclate 100 MG 1 tablet Orally bid for 10 day(s) Apr, Treatment Notes Assessment Notes Clinical Notes History of laryngeal cancer Dr. Silvia rudd above reviewed Hypertension meets goal today COPD (chronic obstructive pulmonary disease) variable with weather GERD (gastroesophageal reflux disease) S tates that he join the Zantac class action lawsuit Tobacco abuse encourage once again to quit smoking. Chronic back pain greater than 3 months duration Has followed with Dr. Aly Hill for numerous years, continues with Percocet for pain relief through his practice Acute recurrent frontal sinusitis treate d BMI 31.0-31.9,adult has lost significant amount of weight 228.6 pounds, states he feels much better and actually can do things better Next Appt Details December 2021 medicare annual wellness Reason : Insurance Providers Payer Name Payer Address Payer Phone Insured Name Patient Relati onship to Insured Coverage Start Date Coverage End Date MEDICARE Part A and B [address] [facility] [id number] [place] [facility] [facility] [address] [facility] [id number] [place] [facility] [phone] [facility] [id number] [place]
--- OUTSIDE RECORDS SUMMARY | 2021-06-08 08:16 | CCD | Continuity of Care Document ---
Author Author Foster KELLOGG DO Organization Unknown Address [address] [place] [address] Phone [phone] Care Team Providers Care Medical Investigator Name Role Phone LavonageNazia R.N. AUTM [phone] [facility] Rehab AUTM [phone] Robert Falcon MD AUTM [phone] [facility] Records AUTM [phone] Chantal Schmid M.D. AUTM [phone] Chasidy Kellogg D.O. AUTM [phone] Timmy Burns M.D. AUTM [phone] AUTM Unavailable Baldomero Modi M.D. AUTM [phone] Problems Active Problems Provider Date Obstructive sleep [...] SIG Qnty Indications Ordering Provide r Date Lactulose 10GM/15ML Solution take 15 mls. once a day . (constipation) prn 1892ml K59.00 Robert zheng MD 01/09/2021 Qvar Redihaler 80mcg/Act Aerosol inhale one puff by mouth twice a day 10.600gm TAM Brantley Perforomist 20mcg/2ML Nebulizer 1 vial inhaled via nebulizer twice a day 120ml WILLEM Brantley 10/13/2020 Albuterol Sulfate (2 .5mg/3ML) 0.083% Nebulizer 1 vial four times a day as needed 360ml R06.02 TAM Briceno 10/02/2020 CPAP Device 13cm lcw G47.33 TAM Brantley 01/30/2020 Lipitor 20mg Tablets 1 by mouth every day Unknown Ventolin HFA 108(90Base) mcg/Act A erosol 2 puffs qid/prn Unknown Aspirin [address] 1 tab by mouth every day Unknown Percocet 5-325mg Tablets 2 by mouth every 4 hours prn pain Unknown Prilosec OTC 20mg Tablets DR 1 tab by mouth every day 60tabs Unknown Amlodipine Besylate 10mg Tablets 1 tab by mouth every day Unknown History Medications Zofran 4mg Tablets 1 every 6 hours [...] Available Vital Signs Date Vital Result Comment 05/04/2021 8:34am BP Systolic 158 mmHg BP Diastolic 90 mmHg Heart Rate 86 /min Respiratory Rate 20 /min Body Temperature 97.6 F Height 72 inches 6'0" [place] Body Weight 178 lb 04/22/2021 10:25am BP Systolic 132 mmHg BP Diastolic 78 mmHg Heart Rate 68 /min Respiratory Rate 18 /min Body Temperature 97.9 F Height 72 inches 6'0" Weight 228.00 lb BMI (Body Mass Index) 30.9 kg/m2 [place] Body Weight 178 lb Weight 103.421 kg BSA (Body Surface Area) 2.25 m2 Results Test Acquired Date Facility Test Result H/L Range Note Complete Blood Count 04/15/2021 [facility] Main Lab [address] [place], [place] [id number] [phone] White Blood Count 8.4 10 Normal 4.0-10.0 [...] % Normal 0-0 Basic Metabolic Profile 04/15/2021 [facility] Main Lab [address] [place], [place] [id number] [phone] Glucose, Fasting 151 mg/dL High 70-100 Blood [...] mg/dL Normal 8.8-10.2 CBC With Differential 04/14/2021 [facility] Main Lab [address] [place], [place] [id number] [phone] White Blood Count 4.9 10 Normal 4.0-10.0 [...] 36.0-66.0 Lymph % 12.5 % Low 24.0-44.0 [place] % 1.6 % Low 2.0-8.0 Eos % 0.0 % Normal 0.0-3.0 Baso % 0.4 % Normal 0.0-1.0 Immature Granulocyte % 0.4 % Normal 0-3.0 Nucleated Red Blood Cell % 0.0 % Normal 0-0 Neutrophils # 4.2 10 Normal 1.5-8.5 Lymph # 0.6 10 Low 1.5-5.0 [place] # 0.1 10 Normal 0.0-0.8 Eos # 0.0 10 Normal 0.0-0.5 Baso # 0.0 10 Normal 0.0-0.2 Prothrombin Time/Inr 04/14/2021 [facility] Main Lab [address] [place], [place] [id number] [phone] Prothrombin Time 14.7 seconds High 12.7-14.5 Inr 1.11 Normal 2 Laboratory test finding 04/14/2021 [facility] Main Lab [address] [place] [address] [phone] Partial Thromboplastin Time 42.2 seconds High 25 .9-37.0 3 Comprehensive Metabolic Profil 04/14/2021 [facility] Main Lab [address] [place] [address] [phone] Glucose, Fasting 135 mg/dL High 70-100 Blood [...] Ratio 0.8 Normal Laboratory test finding 04/14/2021 [facility] Main Lab [address] [place] [address] [phone] Pathology Request For Service (SEE NOTE) 5 FVL/[place] 11/26/2020 [employer] PDFReport SEE IMAGE FVC-Pred 4.98 L FVC-Pre 3.29 L FVC-%Pred-Pre 66 L FVC-LLN 3.99 L Fev1-Pred 3.73 L Fev1-Pre 2.19 L Fev1-%Pred-Pre 58 L Fev1-LLN 2.89 L Fev6-Pred 4.74 L Fev6-Pre 3.25 L Fev6-%Pred-Pre 68 L Fev6-LLN 3.78 L Ssy0vhk-Bqmo 75 % Qkw4uxk-Zuk 67 % Hqp9oej-%Pred-Pre 89 % Rry9xxq-XBF 65 % Zuy6grc-Ydgl 95 % Rib9cna-Jbz 99 % Hfv3mkk-%Pred-Pre 103 % FEFMax-Pred 9.37 L/E/sec FEFMax-Pre 3.26 L/E/sec FEFMax-%Pred-Pre 34 L/E/sec FEFMax-LLN 6.91 L/E/sec Abp3048-Kyuz 2.96 L/E/sec Wfv9579-Cnb 1.36 L/E/sec Pcz9310-%Pred-Pre 45 L/E/sec Shr2566-WRR 1.27 L/E/sec ExpTime-Pre 6.76 sec Ive2trd7-Evrm 78 % Kbx5eqe3-Wrk 67 % Dzd3npz2-%Pred-Pre 85 % Ojf4neg4-CBS 69 % 1 Units are mL/min/1.73 m2 Chronic Kidney Disease Staging per NKF: Stage I & II GFR >=60 Normal to Mildly Decreased Stage III GFR 30-59 Moderately Decreased Stage IV GFR 15-29 Severely Decreased Stage V GFR <15 Very Little GFR Left ESRD GFR <15 on MACHINE FORMER 2 THERAPUTIC HUMAN INR VALUES INDICATIONS NORMAL [...] Little GFR Left ESRD GFR <15 on MACHINE FORMER 5 FINAL DIAGNOSIS Neck mass, excision: Benign [...] does not reveal any well-defined mass/lesion. Multiple loss prevention representative sections are submitted in (A1-A4), (A5) contains loss prevention representative from the ad ditional mature adipose tissue fragments. - 04/14/2021 - 1506 Signed Virginia Alamo MD 04/15/2021 1322 Procedures Date Code Description Status 04/22/2021 54137 Office/Outpatient New Moderate M DM 45-59 Minutes Completed 04/14/2021 25203 Excision Tumor, Soft Tissue, Nec k/Thorax, Subfacial, 5 CM Or > Completed 04/14/2021 63891 Excision Tumor, Soft Tissue, Nec k/Thorax, Subfacial, 5 CM Or > Completed 04/06/2021 75313 Office/Outpatient Established Mo d MDM 30-39 Min Completed 03/10/2021 55999 Office/Outpatient Established Lo w MDM 20-29 Min Completed 03/10/2021 42086 Laryngoscopy Flexible Fiberoptic Diagnostic Completed 02/26/2021 01912 Office/Outpatient New Moderate M DM 45-59 Minutes Completed 02/17/2021 52124 Office/Outpatient Established Lo w MDM 20-29 Min Completed 02/17/2021 49815 Laryngoscopy Flexible Fiberoptic Diagnostic Completed 12/17/2020 06066 Laparoscopy Surgical Closure Of Enterostomy, Large Or Small Intes Completed 12/17/2020 10225 Laparoscopy Surgical Closure Of Enterostomy, Large Or Small Intes Completed 12/17/2020 03449 Laparoscopy Surgical Mobilization Take Down Of Splenic Flexure Pe Completed 12/10/2020 21461 Laryngoscopy Flexible Fiberoptic Diagnostic Completed 11/26/2020 66503 Office/Outpatient Established Mo d MDM 30-39 Min Completed 11/26/2020 30090 Spirometry Completed Medical Devices Description No Information Available Encounters Type Date Location Provider Dx Diagnosis Office Visit 05/04/2021 8:30a [facility] Plastic Surgery Chasidy figueroa DO Z48.817 Encntr for surgical aftcr fol surgery on the skin, subcu T81.31xA Disruption of external opera tion (surgical) wound, NEC, init Office Visit 04/22/2021 10:30a [facility] Plastic Surgery Chasidy figueroa DO Z48.817 Encntr for surgical aftcr fol surgery on the skin, subcu Office Visit 04/22/2021 2:30p [facility] Gastroenterology Pra loniice Mirella Sirena Corbett, RPA-C R13.10 Dysphagia, unspecified K21.9 Gastro-esophageal reflux dis ease without esophagitis R93.3 Abnormal findings on dx imag ing of prt digestive tract Office Visit 04/21/2021 9:00a [facility] ENT Practice Baldomero Modi MD L57.8 Oth skin 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 R22.2 Localized swelling, mass and lump, trunk Z48.89 Encounter for other specifie d surgical aftercare Office Visit 04/06/2021 11:15a [facility] Plastic Surgery Chasidy Kellogg DO 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, subcu of head, face and neck Office Visit 03/10/2021 10:00a [facility] ENT Practice Baldomero Modi MD 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, subcu of head, 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 Office Visit 02/26/2021 11:00a [facility] Plastic Surgery Chasidy Kellogg DO 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, subcu of head, face and neck L57.8 Oth skin 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 Office Visit 02/17/2021 9:15a [facility] ENT Practice Baldomero Modi MD C32.1 Malignant neoplasm of supraglottis D17.0 Prabhu lipomatous neoplm of ski n, subcu of head, face and neck Office Visit 02/05/2021 9:30a [facility] Surgery Practice Ángel Falcon MD Z93.3 Colostomy status K57.20 Dvtrcli of lg int w perforat ion and abscess w/o bleeding K59.00 Constipation, unspecified Z48.815 Encntr for surgical aftcr fo llowing surgery on the dgstv sys Office Visit 01/01/2021 10:00a [facility] Surgery Practice Ángel Falcon MD Z93.3 Colostomy status K57.20 Dvtrcli of lg int w perforat ion and abscess w/o bleeding K59.00 Constipation, unspecified Z48.815 Encntr for surgical aftcr fo llowing surgery on the dgstv sys Office Visit 12/23/2020 1:45p [facility] Surgery Practice ERIK Álvarez Z93.3 Colostomy status R11.2 Nausea with vomiting, unspec ified Office Visit 11/26/2020 9:00a [facility] Pulmonary/Thoracic Raven To wne, ANP G47.33 Obstructive sleep apnea (adult) (pediatr ic) J44.9 Chronic obstructive pulmonar y disease, unspecified Z87.891 Personal history of nicotine dependence Assessments Date Code Description Provider 05/04/2021 Z48.817 Encounter for surgic al aftercare following surgery on the skin and subcutaneous tissue Chasidy Kellogg, DO 05/04/2021 T81.31xA Disruption of admitting coordinator al operation (surgical) wound, not elsewhere classified, initial encounter Chasidy Kellogg, DO 04/22/2021 Z48.817 Encounter for surgic al aftercare following surgery on the skin and subcutaneous tissue Chasidy Kellogg, DO 04/22/2021 R13.10 Dysphagia, unspecified Mirella A Sandralebois, RPA-C 04/22/2021 K21.9 Gastro-esophageal reflux disease without esophagitis Mirella A Sandraleboaquiles, RPA-C 04/22/2021 R93.3 Abnormal findings on diagnostic imaging of other parts of digestive tract Mirella A Alexisbois, RPA-C 04/21/2021 L57.8 Other skin changes d [...] to chronic exposure to nonionizing radiation Chasidy Kellogg, DO 04/14/2021 L57.8 Other skin changes d [...] Z43.3 Encounter for attention to colos gordon Jeremy Schneider JR, MD 12/17/2020 K57.30 Diverticulosis of la rge intestine without perforation or abscess without bleeding Jeremy Schneider JR, MD 12/17/2020 Z43.3 Encounter for attention to colos gordon Robert Falcon MD 12/17/2020 K57.30 Diverticulosis of la rge intestine without perforation or abscess without bleeding Robert Flacon MD 12/10/2020 C32.1 Malignant neoplasm of supraglott [...] TAM Brantley Plan of Treatment Future Appointment(s):* 06/08/2021 11:30 am - Murphy Hudson M.D. at [facility] Gastroenterology Practice * 06/05/2021 8:30 am - Chasidy Kellogg DO at [facility] Plastic Surgery * 06/15/2021 7:50 am - Umang Patel MD at [facility] ENT Practice * 05/13/2021 8:30 am - TAM Brantley at [facility] Pulmonary/Thoracic 05/04/2021 - Chasidy Kellogg DO* Z48.817 Encounter for surgical aftercare following surgery on the skin and subcutaneous tissue * T81.31xA Disruption of external operation (surgical) wound, not elsewhere classified, initial encounter Functional Status Description No Information Available Mental Status Description No Information Available Referrals Refer to Dr Reason for Referral Status Appt Date Murphy Hudson M.D. Closed [facility] Medical Practice-[facility] [address] [facility], [address] [id number] [phone] Murphy Hudson M.D. DYSPHAGIA Scheduled 04/13 [facility] [address] [phone]
--- OUTSIDE RECORDS SUMMARY | 2021-06-08 08:16 | CCD | Continuity of Care Document ---
Author Author Foster JACKSON ANP Organization Unknown Address [address] [place] [address] Phone [phone] Care Team Providers Care Boilermaker Apprentice Name Role Phone LavonageNazia R.N. AUTM [phone] [facility] Rehab AUTM [phone] Robert Falcon MD AUTM [phone] [facility] Records AUTM [phone] Chantal Schmid M.D. AUTM [phone] Chasidy Reynoso D.O. AUTM [phone] Timmy Burns M.D. AUTM [phone] AUTM Unavailable Baldomero Modi M.D. AUTM [phone] Problems Active Problems Provider Date Obstructive sleep [...] lb BMI (Body Mass Index) 31.3 kg/m2 [place] Body Weight 178 lb Weight 104.782 kg BSA (Body Surface Area) 2.27 m2 05/04/2021 8:34am BP Systolic 158 mmHg BP Diastolic 90 mmHg Heart Rate 86 /min Respiratory Rate 20 /min Body Temperature 97.6 F Height 72 inches 6'0" [place] Body Weight 178 lb Results Test Acquired Date Facility Test Result H/L Range Note FVL/[place] 05/13/2021 [employer] PDFReport SEE IMAGE FVC-Pred 4.98 L FVC-Pre 3.35 L FVC-%Pred-Pre 67 L FVC-LLN 3.99 L Fev1-Pred 3.73 L Fev1-Pre 2.17 L Fev1-%Pred-Pre 58 L Fev1-LLN 2.89 L Fev6-Pred 4.74 L Fev6-Pre 3.33 L Fev6-%Pred-Pre 70 L Fev6-LLN 3.78 L Fwi2tmq-Einn 75 % Fcp4vyj-Dmg 65 % Zmv8cke-%Pred-Pre 86 % Rae0pvz-PUW 65 % Xwb6nid-Wgxn 95 % Pgc7cxo-Fml 99 % Pbr1hei-%Pred-Pre 104 % FEFMax-Pred 9.37 L/E/sec FEFMax-Pre 4.03 L/E/sec FEFMax-%Pred-Pre 42 L/E/sec FEFMax-LLN 6.91 L/E/sec Vhx7148-Sgpl 2.96 L/E/sec Duo5420-Ffp 1.20 L/E/sec Nxs4461-%Pred-Pre 40 L/E/sec Gsg1471-FEO 1.27 L/E/sec ExpTime-Pre 7.46 sec Uag8xvi7-Uizv 78 % Ues4sdq0-Dkq 65 % Ziv7cgu7-%Pred-Pre 82 % Uba3hxa8-QVG 69 % Complete Blood Count 04/15/2021 [facility] Main Lab [address] [place] [address] [phone] White Blood Count 8.4 10 Normal 4.0-10.0 [...] % Normal 0-0 Basic Metabolic Profile 04/15/2021 [facility] Main Lab 0 [place] [address] [phone] Glucose, Fasting 151 mg/dL High 70-100 Blood [...] mg/dL Normal 8.8-10.2 CBC With Differential 04/14/2021 [facility] Main Lab [address] [place] [address] [phone] White Blood Count 4.9 10 Normal 4.0-10.0 [...] 36.0-66.0 Lymph % 12.5 % Low 24.0-44.0 [place] % 1.6 % Low 2.0-8.0 Eos % 0.0 % Normal 0.0-3.0 Baso % 0.4 % Normal 0.0-1.0 Immature Granulocyte % 0.4 % Normal 0-3.0 Nucleated Red Blood Cell % 0.0 % Normal 0-0 Neutrophils # 4.2 10 Normal 1.5-8.5 Lymph # 0.6 10 Low 1.5-5.0 [place] # 0.1 10 Normal 0.0-0.8 Eos # 0.0 10 Normal 0.0-0.5 Baso # 0.0 10 Normal 0.0-0.2 Prothrombin Time/Inr 04/14/2021 [facility] Main Lab [address] [place] [address] [phone] Prothrombin Time 14.7 seconds High 12.7-14.5 Inr 1.11 Normal 2 Laboratory test finding 04/14/2021 [facility] Main Lab [address] [place] [address] [phone] Partial Thromboplastin Time 42.2 seconds High 25 .9-37.0 3 Comprehensive Metabolic Profil 04/14/2021 [facility] Main Lab [address] [place] [address] [phone] Glucose, Fasting 135 mg/dL High 70-100 Blood [...] Ratio 0.8 Normal Laboratory test finding 04/14/2021 [facility] Main Lab 0 [place] [address] [phone] Pathology Request For Service (SEE NOTE) 5 FVL/[place] 11/26/2020 [employer] PDFReport SEE IMAGE FVC-Pred 4.98 L FVC-Pre 3.29 L FVC-%Pred-Pre 66 L FVC-LLN 3.99 L Fev1-Pred 3.73 L Fev1-Pre 2.19 L Fev1-%Pred-Pre 58 L Fev1-LLN 2.89 L Fev6-Pred 4.74 L Fev6-Pre 3.25 L Fev6-%Pred-Pre 68 L Fev6-LLN 3.78 L Coc5ciy-Kgxc 75 % Jkm6qzu-Wws 67 % Xcf8yuw-%Pred-Pre 89 % Rca9hfi-RZO 65 % Ema5kcu-Pggx 95 % Tyz5mtl-Wnp 99 % Fad7omw-%Pred-Pre 103 % FEFMax-Pred 9.37 L/E/sec FEFMax-Pre 3.26 L/E/sec FEFMax-%Pred-Pre 34 L/E/sec FEFMax-LLN 6.91 L/E/sec Zyu7336-Sevx 2.96 L/E/sec Uwy1266-Wkf 1.36 L/E/sec Zhv3637-%Pred-Pre 45 L/E/sec Eev1102-FAY 1.27 L/E/sec ExpTime-Pre 6.76 sec Xhr6sfj3-Xfkt 78 % Xmc5yfv7-Sto 67 % Vme0mdw1-%Pred-Pre 85 % Qgm0tcy7-VGZ 69 % 1 Units are mL/min/1.73 m2 Chronic Kidney Disease Staging per NKF: Stage I & II GFR >=60 Normal to Mildly Decreased Stage III GFR 30-59 Moderately Decreased Stage IV GFR 15-29 Severely Decreased Stage V GFR <15 Very Little GFR Left ESRD GFR <15 on INFORMATION SYSTEMS TECHNICIAN 2 THERAPUTIC HUMAN INR VALUES INDICATIONS NORMAL [...] Little GFR Left ESRD GFR <15 on INFORMATION SYSTEMS TECHNICIAN 5 FINAL DIAGNOSIS Neck mass, excision: Benign [...] does not reveal any well-defined mass/lesion. Multiple herbicide service sales representative sections are submitted in (A1-A4), (A5) contains herbicide service sales representative from the ad ditional mature adipose tissue fragments. - 04/14/2021 - 150 Signed Virginia Alamo MD 04/15/2021 1322 Procedures Date Code Description Status 05/13/2021 29444 Spirometry Completed 05/13/2021 48049 Office/Outpatient Established Mo d MDM 30-39 Min Completed 04/22/2021 96574 Office/Outpatient New Moderate M DM 45-59 Minutes Completed 04/14/2021 86879 Excision Tumor, Soft Tissue, Nec k/Thorax, Subfacial, 5 CM Or > Completed 04/14/2021 21229 Excision Tumor, Soft Tissue, Nec k/Thorax, Subfacial, 5 CM Or > Completed 04/06/2021 39777 Office/Outpatient Established Mo d MDM 30-39 Min Completed 03/10/2021 42978 Office/Outpatient Established Lo w MDM 20-29 Min Completed 03/10/2021 89393 Laryngoscopy Flexible Fiberoptic Diagnostic Completed 02/26/2021 01240 Office/Outpatient New Moderate M DM 45-59 Minutes Completed 02/17/2021 18075 Office/Outpatient Established Lo w MDM 20-29 Min Completed 02/17/2021 52398 Laryngoscopy Flexible Fiberoptic Diagnostic Completed 12/17/2020 95140 Laparoscopy Surgical Closure Of Enterostomy, Large Or Small Intes Completed 12/17/2020 57309 Laparoscopy Surgical Closure Of Enterostomy, Large Or Small Intes Completed 12/17/2020 45254 Laparoscopy Surgical Mobilization Take Down Of Splenic Flexure Pe Completed 12/10/2020 57463 Laryngoscopy Flexible Fiberoptic Diagnostic Completed 11/26/2020 44905 Office/Outpatient Established Mo d MDM 30-39 Min Completed 11/26/2020 40871 Spirometry Completed Medical Devices Description No Information Available Encounters Type Date Location Provider Dx Diagnosis Office Visit 05/13/2021 8:30a [facility] Raven To juaquin, ANP J44.9 Chronic obstructive pulmonary disease, u nspecified G47.33 Obstructive sleep apnea (aguilar lt) (pediatric) Z87.891 Personal history of nicotine dependence Office Visit 05/04/2021 8:30a [facility] Chasidy figueroa, DO Z48.817 Encntr for surgical aftcr fol surgery on the skin, subcu T81.31xA Disruption of external opera tion (surgical) wound, NEC, init Office Visit 04/22/2021 10:30a [facility] Chasidy Wright y, DO Z48.817 Encntr for surgical aftcr fol surgery on the skin, subcu Office Visit 04/22/2021 2:30p [facility] Pra yanna Corbett, RPA-C R13.10 Dysphagia, unspecified K21.9 Gastro-esophageal reflux dis ease without esophagitis R93.3 Abnormal findings on dx imag ing of prt digestive tract Office Visit 04/21/2021 9:00a [facility] Baldomero Modi MD L57.8 Oth skin 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 R22.2 Localized swelling, mass and lump, trunk Z48.89 Encounter for other specifie d surgical aftercare Office Visit 04/06/2021 11:15a [facility] Chasidy Reynoso DO 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, subcu of head, face and neck Office Visit 03/10/2021 10:00a [facility] Baldomero Modi MD 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, subcu of head, 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815 Encntr for surgical aftcr [facility] Office Visit 01/01/2021 10:00a [facility] Ángel Falcon MD Z93.3 Colostomy status K57.20 Dvtrcli of lg int w perforat ion and abscess w/o bleeding K59.00 Constipation, unspecified Z48.815 Encntr for surgical aftcr fo llowing surgery on the dgv sys Office Visit 12/23/2020 1:45p [facility] ERIK Álvarez Z93.3 Colostomy status R11.2 Nausea with vomiting, unspec ified Office Visit 11/26/2020 9:00a [facility] Raven hankinse, ANP G47.33 Obstructive sleep apnea (adult) (pediatr ic) J44.9 Chronic obstructive pulmonar y disease, unspecified Z87.891 Personal history of nicotine dependence Assessments Date Code Description Provider 05/13/2021 J44.9 Chronic obstructive pulmonary di sease, unspecified Raven Jackson, TAM 05/13/2021 G47.33 Obstructive sleep apnea (adult) (pediatric) Raven Jackson, TAM 05/13/2021 Z87.891 Personal history of nicotine dep endence aRven Jackson, TAM 05/04/2021 Z48.817 Encounter for surgic al aftercare following surgery on the skin and subcutaneous tissue Chasidy Reynoso, DO 05/04/2021 T81.31xA Disruption of resident care technician al operation (surgical) wound, not elsewhere classified, initial encounter Chasidy Reynoso, DO 04/22/2021 Z48.817 Encounter for surgic al aftercare following surgery on the skin and subcutaneous tissue Chasidy Reynoso, DO 04/22/2021 R13.10 Dysphagia, unspecified Mirella Corbett, RPA-C 04/22/2021 K21.9 Gastro-esophageal reflux disease without esophagitis Mirella Corbett, RPA-C 04/22/2021 R93.3 Abnormal findings on diagnostic imaging of other parts of digestive tract Mirella Corbett, [facility] 04/21/2021 L57.8 Other skin changes [...] chronic exposure to nonionizing radiation Chasidy Reynoso, 04/14/2021 L57.8 Other skin changes d ue [...] 01/27/2022 8:30 am - TAM Brantley at [facility] * 06/17/2021 2:20 pm - Murphy Hudson M.D. at [facility] * 06/08/2021 11:30 am - Murphy Hudson M.D. at [facility] * 06/05/2021 8:30 am - Chasidy Reynoso DO at [facility] * 06/15/2021 7:50 am - Umang Patel MD at [facility] 05/13/2021 - TAM Brantley* J44.9 Chronic obstructive pulmonary disease, unspecified * G47.33 Obstructive sleep apnea (adult) (pediatric) * Z87.891 Personal history of nicotine dependence * * New Labs:* FVL/[place], Ordered: 05/13/21 * Follow up:* Follow up December-January 2022 with fvl/spirometry. Functional Status Description No Information Available Mental Status Description No Information Available Referrals Refer to Reason for Referral Status Appt Date Murphy Hudson M.D. Closed [address] [id number] [phone] Murphy Hudson M.D. DYSPHAGIA Scheduled 04/[address], [address] [address] [phone]
--- OUTSIDE RECORDS SUMMARY | 2021-06-08 08:16 | CCD | Continuity of Care Document ---
Author Author Foster KELLOGG DO Organization Unknown Address [address] [place] [address] Phone [phone] Care Team Providers Care Supervisor Spinning Name Role Phone LavonageNazia R.N. AUTM [phone] [facility] Rehab AUTM [phone] Robert Falcon MD AUTM [phone] [facility] Records AUTM [phone] Chantal Schmid M.D. AUTM [phone] Chasidy Kellogg D.O. AUTM [phone] Timmy Burns M.D. AUTM [phone] AUTM Unavailable Baldomero Modi M.D. AUTM [phone] Problems Active Problems Provider Date Obstructive sleep [...] Available Vital Signs Date Vital Result Comment 04/22/2021 10:25am BP Systolic 132 mmHg BP Diastolic 78 mmHg Heart Rate 68 /min Respiratory Rate 18 /min Body Temperature 97.9 F Height 72 inches 6'0" Weight 228.00 lb BMI (Body Mass Index) 30.9 kg/m2 [place] Body Weight 178 lb Weight 103.421 kg BSA (Body Surface Area) 2.25 m2 04/21/2021 8:56am Height 72 inches 6'0" Weight 235.00 lb BMI (Body Mass Index) 31.9 kg/m2 [place] Body Weight 178 lb Weight 106.596 kg BSA (Body Surface Area) 2.28 m2 Results Test Acquired Date Facility Test Result H/L Range Note Complete Blood Count 04/15/2021 [facility] Main Lab [address] [place], [place] [id number] [phone] White Blood Count 8.4 10 Normal 4.0-10.0 [...] % Normal 0-0 Basic Metabolic Profile 04/15/2021 [facility] Main Lab [address] [place], [place] [id number] [phone] Glucose, Fasting 151 mg/dL High 70-100 Blood [...] mg/dL Normal 8.8-10.2 CBC With Differential 04/14/2021 [facility] Main Lab [address] [place] [address] [phone] White Blood Count 4.9 10 Normal 4.0-10.0 [...] 36.0-66.0 Lymph % 12.5 % Low 24.0-44.0 [place] % 1.6 % Low 2.0-8.0 Eos % 0.0 % Normal 0.0-3.0 Baso % 0.4 % Normal 0.0-1.0 Immature Granulocyte % 0.4 % Normal 0-3.0 Nucleated Red Blood Cell % 0.0 % Normal 0-0 Neutrophils # 4.2 10 Normal 1.5-8.5 Lymph # 0.6 10 Low 1.5-5.0 [place] # 0.1 10 Normal 0.0-0.8 Eos # 0.0 10 Normal 0.0-0.5 Baso # 0.0 10 Normal 0.0-0.2 Prothrombin Time/Inr 04/14/2021 [facility] Main Lab [address] [place] [address] [phone] Prothrombin Time 14.7 seconds High 12.7-14.5 Inr 1.11 Normal 2 Laboratory test finding 04/14/2021 [facility] Main Lab [address] [place], [place] [id number] [phone] Partial Thromboplastin Time 42.2 seconds High 25 .9-37.0 3 Comprehensive Metabolic Profil 04/14/2021 [facility] Main Lab [address] [place], [place] [address] [phone] Glucose, Fasting 135 mg/dL High 70-100 Blood [...] Ratio 0.8 Normal Laboratory test finding 04/14/2021 [facility] Main Lab [address] [place] [address] [phone] Pathology Request For Service (SEE NOTE) 5 FVL/[place] 11/26/2020 [employer] PDFReport SEE IMAGE FVC-Pred 4.98 L FVC-Pre 3.29 L FVC-%Pred-Pre 66 L FVC-LLN 3.99 L Fev1-Pred 3.73 L Fev1-Pre 2.19 L Fev1-%Pred-Pre 58 L Fev1-LLN 2.89 L Fev6-Pred 4.74 L Fev6-Pre 3.25 L Fev6-%Pred-Pre 68 L Fev6-LLN 3.78 L Ocf3fsb-Prdj 75 % Ctb8xgu-Bll 67 % Uju4uqk-%Pred-Pre 89 % Fxj3euu-JDW 65 % Oex4awu-Zerd 95 % Ycm8xwa-Znb 99 % Nai7yaz-%Pred-Pre 103 % FEFMax-Pred 9.37 L/E/sec FEFMax-Pre 3.26 L/E/sec FEFMax-%Pred-Pre 34 L/E/sec FEFMax-LLN 6.91 L/E/sec Ynk5893-Karv 2.96 L/E/sec Fgf9846-Qhm 1.36 L/E/sec Xps1753-%Pred-Pre 45 L/E/sec Ini8438-GJK 1.27 L/E/sec ExpTime-Pre 6.76 sec Dae4xme3-Jeip 78 % Bkt5gba3-Fej 67 % Nmh9ker0-%Pred-Pre 85 % Izj3ahw1-TYS 69 % 1 Units are mL/min/1.73 m2 Chronic Kidney Disease Staging per NKF: Stage I & II GFR >=60 Normal to Mildly Decreased Stage III GFR 30-59 Moderately Decreased Stage IV GFR 15-29 Severely Decreased Stage V GFR <15 Very Little GFR Left ESRD GFR <15 on DYEHOUSE WORKER 2 THERAPUTIC HUMAN INR VALUES INDICATIONS NORMAL [...] Little GFR Left ESRD GFR <15 on DYEHOUSE WORKER 5 FINAL DIAGNOSIS Neck mass, excision: Benign [...] does not reveal any well-defined mass/lesion. Multiple telemarketing representative sections are submitted in (A1-A4), (A5) contains telemarketing representative from the ad ditional mature adipose tissue fragments. - 04/14/2021 - 1506 Signed Virginia Alamo MD 04/15/2021 1322 Procedures Date Code Description Status 04/14/2021 39578 Excision Tumor, Soft Tissue, Nec k/Thorax, Subfacial, 5 CM Or > Completed 04/14/2021 71147 Excision Tumor, Soft Tissue, Nec k/Thorax, Subfacial, 5 CM Or > Completed 04/06/2021 62627 Office/Outpatient Established Mo d MDM 30-39 Min Completed 03/10/2021 32512 Office/Outpatient Established Lo w MDM 20-29 Min Completed 03/10/2021 93022 Laryngoscopy Flexible Fiberoptic Diagnostic Completed 02/26/2021 95027 Office/Outpatient New Moderate M DM 45-59 Minutes Completed 02/17/2021 40370 Office/Outpatient Established Lo w MDM 20-29 Min Completed 02/17/2021 56912 Laryngoscopy Flexible Fiberoptic Diagnostic Completed 12/17/2020 42874 Laparoscopy Surgical Closure Of Enterostomy, Large Or Small Intes Completed 12/17/2020 91464 Laparoscopy Surgical Closure Of Enterostomy, Large Or Small Intes Completed 12/17/2020 23507 Laparoscopy Surgical Mobilization Take Down Of Splenic Flexure Pe Completed 12/10/2020 16504 Laryngoscopy Flexible Fiberoptic Diagnostic Completed 11/26/2020 97940 Office/Outpatient Established Mo d MDM 30-39 Min Completed 11/26/2020 53434 Spirometry Completed Medical Devices Description No Information Available Encounters Type Date Location Provider Dx Diagnosis Office Visit 04/22/2021 10:30a [facility] Plastic Surgery Chasidy Wright y, DO Z48.817 Encntr for surgical aftcr fol surgery on the skin, subcu Office Visit 04/21/2021 9:00a [facility] ENT Practice Baldomero Modi MD L57.8 Oth skin 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 R22.2 Localized swelling, mass and lump, trunk Z48.89 Encounter for other specifie d surgical aftercare Office Visit 04/06/2021 11:15a [facility] Plastic Surgery Chasidy Kellogg DO 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, subcu of head, face and neck Office Visit 03/10/2021 10:00a [facility] ENT Practice Baldomero Modi MD 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, subcu of head, 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 Office Visit 02/26/2021 11:00a [facility] Plastic Surgery Chasidy Kellogg DO 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, subcu of head, face and neck L57.8 Oth skin 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 Office Visit 02/17/2021 9:15a [facility] ENT Practice Baldomero Modi MD C32.1 Malignant neoplasm of supraglottis D17.0 Prabhu lipomatous neoplm of ski n, subcu of head, face and neck Office Visit 02/05/2021 9:30a [facility] Surgery Practice Ángel Falcon MD Z93.3 Colostomy status K57.20 Dvtrcli of lg int w perforat ion and abscess w/o bleeding K59.00 Constipation, unspecified Z48.815 Encntr for surgical aftcr fo [facility] Office Visit 01/01/2021 10:00a [facility] Surgery Practice Ángel Falcon MD Z93.3 Colostomy status K57.20 Dvtrcli of lg int w perforat ion and abscess w/o bleeding K59.00 Constipation, unspecified Z48.815 Encntr for surgical aftcr fo llowing surgery on the dgv sys Office Visit 12/23/2020 1:45p [facility] Surgery Practice ERIK Álvarez Z93.3 Colostomy status R11.2 Nausea with vomiting, unspec ified Office Visit 11/26/2020 9:00a [facility] Pulmonary/Thoracic Raven To TAM reza G47.33 Obstructive sleep apnea (adult) (pediatr ic) J44.9 Chronic obstructive pulmonar y disease, unspecified Z87.891 Personal history of nicotine dependence Assessments Date Code Description Provider 04/22/2021 Z48.817 Encounter for surgic al aftercare following surgery on the skin and subcutaneous tissue Chasidy Angeles, DO 04/22/2021 R13.10 Dysphagia, unspecified Mirellagraciela Espinozaboaquiles, [facility] 04/22/2021 K21.9 Gastro-esophageal reflux disease without esophagitis Mirella Corbett, [facility] 04/22/2021 R93.3 Abnormal findings on diagnostic imaging of other parts of digestive tract Mirella Corbett, [facility] 04/21/2021 L57.8 Other skin changes d ue [...] Localized swelling, mass and lum p, neck Chasdiy Angeles, DO 04/06/2021 D17.0 Benign lipomatous ne [...] TAM Brantley Plan of Treatment Future Appointment(s):* 05/04/2021 8:30 am - Chasidy Kellogg DO at [facility] Plastic Surgery * 06/15/2021 7:50 am - Umang Patel MD at [facility] ENT Practice * 05/13/2021 8:30 am - TAM Brantley at [facility] Pulmonary/Thoracic 04/22/2021 - RHYS Zacarias* R13.10 Dysphagia, unspecified * K21.9 Gastro-esophageal reflux disease without esophagitis * R93.3 Abnormal findings on diagnostic imaging of other parts of digestive tract * * New Orders:* Endoscopy with possible dilation, Ordered: 04/22/21 * Comments:* Patient is on recall to have repeat colonoscopy through the General Surgery office in 05/2021. Offered to complete colonoscopy at time of EGD, but he has declined. Will arrange for upper endoscopy and possible dilation. Reviewed risks and benefits of the procedure, as well as other options, with the patient. Prep for this procedure was discussed with patient. A letter will be sent to his PCP requesting a medical clearance prior to the procedure. Patient verbalized understanding of all of the above and is in agreement to proceed. Patient will seek medical attention for any acute changes. Will monitor. * Follow up:* As scheduled, sooner if needed. Functional Status Description No Information Available Mental Status Description No Information Available Referrals Refer to Reason for Referral Status Appt Date Murphy Hudson M.D. Closed [facility] [address] [facility], [address] [id number] [phone] Murphy Hudson M.D. DYSPHAGIA Scheduled 04/13 [facility] [address] [facility], [address] [address] [phone]
--- OUTSIDE RECORDS SUMMARY | 2021-06-08 08:16 | CCD | Continuity of Care Document ---
Author Author Foster MODI MD Organization Unknown Address [address] [place] [address] Phone [phone] Care Team Providers Care Rubber Engraver Name Role Phone Nazia Blum R.N. AUTM [phone] [facility] Rehab AUTM [phone] Robert Falcon MD AUTM [phone] [facility] Records AUTM [phone] Chantal Schmid M.D. AUTM [phone] Chasidy Reynoso D.O. AUTM [phone] Timmy Burns M.D. AUTM [phone] AUTM Unavailable Baldomero Modi M.D. AUTM [phone] Problems Active Problems Provider Date Obstructive sleep [...] lb BMI (Body Mass Index) 30.9 kg/m2 [place] Body Weight 178 lb Weight 103.421 kg BSA (Body Surface Area) 2.25 m2 04/21/2021 8:56am Height 72 inches 6'0" Weight 235.00 lb BMI (Body Mass Index) 31.9 kg/m2 [place] Body Weight 178 lb Weight 106.596 kg BSA (Body Surface Area) 2.28 m2 Results Test Acquired Date Facility Test Result H/L Range Note Complete Blood Count 04/15/2021 [facility] Main Lab [address] [place], [place] [address] [phone] White Blood Count 8.4 10 Normal 4.0-10.0 [...] % Normal 0-0 Basic Metabolic Profile 04/15/2021 [facility] Main Lab [address] [place], [place] [id number] [phone] Glucose, Fasting 151 mg/dL High 70-100 Blood [...] mg/dL Normal 8.8-10.2 CBC With Differential 04/14/2021 [facility] Main Lab [address] [place] [address] [phone] White Blood Count 4.9 10 Normal 4.0-10.0 [...] 36.0-66.0 Lymph % 12.5 % Low 24.0-44.0 [place] % 1.6 % Low 2.0-8.0 Eos % 0.0 % Normal 0.0-3.0 Baso % 0.4 % Normal 0.0-1.0 Immature Granulocyte % 0.4 % Normal 0-3.0 Nucleated Red Blood Cell % 0.0 % Normal 0-0 Neutrophils # 4.2 10 Normal 1.5-8.5 Lymph # 0.6 10 Low 1.5-5.0 [place] # 0.1 10 Normal 0.0-0.8 Eos # 0.0 10 Normal 0.0-0.5 Baso # 0.0 10 Normal 0.0-0.2 Prothrombin Time/Inr 04/14/2021 [facility] enter Main Lab [address] [place] [address] [phone] Prothrombin Time 14.7 seconds High 12.7-14.5 Inr 1.11 Normal 2 Laboratory test finding 04/14/2021 [facility] Main Lab [address] [place], [place] [address] [phone] Partial Thromboplastin Time 42.2 seconds High 25 .9-37.0 3 Comprehensive Metabolic Profil 04/14/2021 [facility] Main Lab [address] [place], [place] [address] [phone] Glucose, Fasting 135 mg/dL High 70-100 Blood [...] Ratio 0.8 Normal Laboratory test finding 04/14/2021 [facility] Main Lab [address] [place], [place] [address] [phone] Pathology Request For Service (SEE NOTE) 5 FVL/[place] 11/26/2020 [employer] PDFReport SEE IMAGE FVC-Pred 4.98 L FVC-Pre 3.29 L FVC-%Pred-Pre 66 L FVC-LLN 3.99 L Fev1-Pred 3.73 L Fev1-Pre 2.19 L Fev1-%Pred-Pre 58 L Fev1-LLN 2.89 L Fev6-Pred 4.74 L Fev6-Pre 3.25 L Fev6-%Pred-Pre 68 L Fev6-LLN 3.78 L Bvn2adq-Mmdl 75 % Rmn1lks-Kyr 67 % Uaf9fqd-%Pred-Pre 89 % Peq0qvn-DRA 65 % Uno3exc-Xygt 95 % Dzn7erh-Hgf 99 % Bda3nou-%Pred-Pre 103 % FEFMax-Pred 9.37 L/E/sec FEFMax-Pre 3.26 L/E/sec FEFMax-%Pred-Pre 34 L/E/sec FEFMax-LLN 6.91 L/E/sec Ext6984-Isfe 2.96 L/E/sec Dxl1787-Jwn 1.36 L/E/sec Gfb2092-%Pred-Pre 45 L/E/sec Xej0652-HMP 1.27 L/E/sec ExpTime-Pre 6.76 sec Xbb7jef5-Qqoa 78 % Qjh9xhn7-Ssy 67 % Qap5vve7-%Pred-Pre 85 % Gim4vtt5-RLK 69 % 1 Units are mL/min/1.73 m2 Chronic Kidney Disease Staging per NKF: Stage I & II GFR >=60 Normal to Mildly Decreased Stage III GFR 30-59 Moderately Decreased Stage IV GFR 15-29 Severely Decreased Stage V GFR <15 Very Little GFR Left ESRD GFR <15 on ART THERAPY SPECIALIST 2 THERAPUTIC HUMAN INR VALUES INDICATIONS NORMAL [...] Little GFR Left ESRD GFR <15 on ART THERAPY SPECIALIST 5 FINAL DIAGNOSIS Neck mass, excision: Benign [...] does not reveal any well-defined mass/lesion. Multiple hotel services sales representative sections are submitted in (A1-A4), (A5) contains hotel services sales representative from the ad ditional mature adipose tissue fragments. - 04/14/2021 - 1506 Signed Virginia Alamo MD 04/15/2021 1322 Procedures Date Code Description Status 04/14/2021 18160 Excision Tumor, Soft Tissue, Nec k/Thorax, Subfacial, 5 CM Or > Completed 04/14/2021 76576 Excision Tumor, Soft Tissue, Nec k/Thorax, Subfacial, 5 CM Or > Completed 04/06/2021 45430 Office/Outpatient Established Mo d MDM 30-39 Min Completed 03/10/2021 76104 Office/Outpatient Established Lo w MDM 20-29 Min Completed 03/10/2021 91550 Laryngoscopy Flexible Fiberoptic Diagnostic Completed 02/26/2021 61819 Office/Outpatient New Moderate M DM 45-59 Minutes Completed 02/17/2021 63187 Office/Outpatient Established Lo w MDM 20-29 Min Completed 02/17/2021 99412 Laryngoscopy Flexible Fiberoptic Diagnostic Completed 12/17/2020 63596 Laparoscopy Surgical Closure Of Enterostomy, Large Or Small Intes Completed 12/17/2020 27684 Laparoscopy Surgical Closure Of Enterostomy, Large Or Small Intes Completed 12/17/2020 11018 Laparoscopy Surgical Mobilization Take Down Of Splenic Flexure Pe Completed 12/10/2020 76599 Laryngoscopy Flexible Fiberoptic Diagnostic Completed 11/26/2020 37520 Office/Outpatient Established Mo d MDM 30-39 Min Completed 11/26/2020 64605 Spirometry Completed 10/29/2020 90539 Laryngoscopy Flexible Fiberoptic Diagnostic Completed Medical Devices Description No Information Available Encounters Type Date Location Provider Dx Diagnosis Office Visit 04/21/2021 9:00a [facility] ENT Practice Baldomero Modi MD L57.8 Oth skin 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 R22.2 Localized swelling, mass and lump, trunk Z48.89 Encounter for other specifie d surgical aftercare Office Visit 04/06/2021 11:15a [facility] Plastic Surgery Chasidy Angeles, DO 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, subcu of head, face and neck Office Visit 03/10/2021 10:00a [facility] ENT Practice Baldomero Modi MD 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, subcu of head, 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 Office Visit 02/26/2021 11:00a [facility] Plastic Surgery Chasidy Reynoso DO 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, subcu of head, face and neck L57.8 Oth skin 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 Office Visit 02/17/2021 9:15a [facility] ENT Practice Baldomero Modi MD C32.1 Malignant neoplasm of supraglottis D17.0 Prabhu lipomatous neoplm of ski n, subcu of head, face and neck Office Visit 02/05/2021 9:30a [facility] Surgery Practice Ángel Falcon MD Z93.3 Colostomy status K57.20 Dvtrcli of lg int w perforat ion and abscess w/o bleeding K59.00 Constipation, unspecified Z48.815 Encntr for surgical aftcr fo llowing surgery on the dgstv sys Office Visit 01/01/2021 10:00a [facility] Surgery Practice Ángel Falcon MD Z93.3 Colostomy status K57.20 Dvtrcli of lg int w perforat ion and abscess w/o bleeding K59.00 Constipation, unspecified Z48.815 Encntr for surgical aftcr fo llowing surgery on the dgstv sys Office Visit 12/23/2020 1:45p [facility] Surgery Practice ERIK Álvarez Z93.3 Colostomy status R11.2 Nausea with vomiting, unspec ified Office Visit 11/26/2020 9:00a [facility] Pulmonary/Thoracic Raven To juaquin, ANP G47.33 Obstructive sleep apnea (adult) (pediatr ic) J44.9 Chronic obstructive pulmonar y disease, unspecified Z87.891 Personal history of nicotine dependence Assessments Date Code Description Provider 04/22/2021 R13.10 Dysphagia, unspecified Chasidy garcia DO 04/22/2021 L57.8 Other skin changes d ue to chronic exposure to nonionizing radiation Chasidy Angeles, DO 04/22/2021 R13.10 Dysphagia, unspecified Mirella Corbett, [facility] 04/22/2021 D17.0 Benign lipomatous ne oplasm of skin and subcutaneous tissue of head, face and neck Chasidy Angeles, DO 04/22/2021 Z48.817 Encounter for surgic al aftercare following surgery on the skin and subcutaneous tissue Chasidy Angeles, DO 04/22/2021 K21.9 Gastro-esophageal reflux disease without esophagitis M[facility]lla Corbett, [facility] 04/22/2021 R93.3 Abnormal findings on diagnostic imaging of other parts of digestive tract Mirella Gomesaquiles, [facility] 04/21/2021 L57.8 Other skin changes d ue [...] tissue of head, face and neck Chasidy Reynoso, DO 02/26/2021 L57.8 Other skin changes d [...] J44.9 Chronic obstructive pulmonary di sease, unspecified Ravenian DuncanTAM 11/26/2020 Z87.891 Personal history of nicotine dep endence TAM Brantley 11/25/2020 J44.9 Chronic obstructive pulmonary di sease, unspecified Raven Duncan, TAM 11/25/2020 G47.33 Obstructive sleep apnea (adult) (pediatric) TAM Brantley 10/29/2020 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 Baldomero Modi MD Plan of Treatment Future Appointment(s):* 05/04/2021 8:30 am - Chasidy Reynoso DO at [facility] Plastic Surgery * 06/15/2021 7:50 am - Umang Patel MD at [facility] ENT Practice * 05/13/2021 8:30 am - TAM Brantley at [facility] Pulmonary/Thoracic 04/22/2021 - Mirella Corbett RPA-C* R13.10 Dysphagia, unspecified * K21.9 Gastro-esophageal reflux [...] Status Appt Date Murphy Hudson M.D. Closed [facility] [address] [place] [address], [address] [address] [phone] Murphy Hudson M.D. DYSPHAGIA Scheduled 04/13 [facility]-[address], [address] [address] [phone]
--- OUTSIDE RECORDS SUMMARY | 2021-06-08 08:16 | CCD | Continuity of Care Document ---
Author Author Foster CORBETT [facility] Organization Unknown Address [address], [address] [place] [address] Phone [phone] Care Team Providers Care Tractor Trailer Operator Name Role Phone Nazia Blum R.N. AUTM [phone] [facility] Rehab AUTM [phone] Robert Falcon MD AUTM [phone] [facility] Records AUTM [phone] Chantal Schmid M.D. AUTM [phone] Chasidy Reynoso D.O. AUTM [phone] Timmy Burns M.D. AUTM [phone] AUTM Unavailable Baldomero Modi M.D. AUTM [phone] Problems Active Problems Provider Date Obstructive sleep [...] Temperature 97.6 F Height 72 inches 6'0" [place] Body Weight 178 lb 04/22/2021 10:25am BP Systolic 132 mmHg BP Diastolic 78 mmHg Heart Rate 68 /min Respiratory Rate 18 /min Body Temperature 97.9 F Height 72 inches 6'0" Weight 228.00 lb BMI (Body Mass Index) 30.9 kg/m2 [place] Body Weight 178 lb Weight 103.421 kg BSA (Body Surface Area) 2.25 m2 Results Test Acquired Date Facility Test Result H/L Range Note Complete Blood Count 04/15/2021 [facility] Main Lab [address] [place], [place] [id number] [phone] White Blood Count 8.4 10 Normal 4.0-10.0 [...] % Normal 0-0 Basic Metabolic Profile 04/15/2021 [facility] Main Lab [address] [place], [place] [id number] [phone] Glucose, Fasting 151 mg/dL High 70-100 Blood [...] mg/dL Normal 8.8-10.2 CBC With Differential 04/14/2021 [facility] Main Lab [address] [place] [address] [phone] White Blood Count 4.9 10 Normal 4.0-10.0 [...] 36.0-66.0 Lymph % 12.5 % Low 24.0-44.0 [place] % 1.6 % Low 2.0-8.0 Eos % 0.0 % Normal 0.0-3.0 Baso % 0.4 % Normal 0.0-1.0 Immature Granulocyte % 0.4 % Normal 0-3.0 Nucleated Red Blood Cell % 0.0 % Normal 0-0 Neutrophils # 4.2 10 Normal 1.5-8.5 Lymph # 0.6 10 Low 1.5-5.0 [place] # 0.1 10 Normal 0.0-0.8 Eos # 0.0 10 Normal 0.0-0.5 Baso # 0.0 10 Normal 0.0-0.2 Prothrombin Time/Inr 04/14/2021 [facility] Main Lab [address] [place] [address] [phone] Prothrombin Time 14.7 seconds High 12.7-14.5 Inr 1.11 Normal 2 Laboratory test finding 04/14/2021 [facility] Main Lab [address] [place], [place] [address] [phone] Partial Thromboplastin Time 42.2 seconds High 25 .9-37.0 3 Comprehensive Metabolic Profil 04/14/2021 [facility] Main Lab [address] [place], [place] [id number] [phone] Glucose, Fasting 135 mg/dL High 70-100 Blood [...] Ratio 0.8 Normal Laboratory test finding 04/14/2021 [facility] Main Lab [address] [place] [address] [phone] Pathology Request For Service (SEE NOTE) 5 FVL/[place] 11/26/2020 [employer] PDFReport SEE IMAGE FVC-Pred 4.98 L FVC-Pre 3.29 L FVC-%Pred-Pre 66 L FVC-LLN 3.99 L Fev1-Pred 3.73 L Fev1-Pre 2.19 L Fev1-%Pred-Pre 58 L Fev1-LLN 2.89 L Fev6-Pred 4.74 L Fev6-Pre 3.25 L Fev6-%Pred-Pre 68 L Fev6-LLN 3.78 L Hjt9yqq-Ofwq 75 % Qew8pjl-Tyt 67 % Uds3xgi-%Pred-Pre 89 % Ebz0abw-AMJ 65 % Bel2wek-Sdwy 95 % Wtk6spt-Mly 99 % Aoa7iot-%Pred-Pre 103 % FEFMax-Pred 9.37 L/E/sec FEFMax-Pre 3.26 L/E/sec FEFMax-%Pred-Pre 34 L/E/sec FEFMax-LLN 6.91 L/E/sec Doi1984-Nooo 2.96 L/E/sec Rfu1041-Hlg 1.36 L/E/sec Yjk4850-%Pred-Pre 45 L/E/sec Zve0465-ICM 1.27 L/E/sec ExpTime-Pre 6.76 sec Mrz2izy7-Cgwd 78 % Fvh8ees7-Izn 67 % Dtp8dhd3-%Pred-Pre 85 % Ehi7zae6-QYB 69 % 1 Units are mL/min/1.73 m2 Chronic Kidney Disease Staging per NKF: Stage I & II GFR >=60 Normal to Mildly Decreased Stage III GFR 30-59 Moderately Decreased Stage IV GFR 15-29 Severely Decreased Stage V GFR <15 Very Little GFR Left ESRD GFR <15 on TRAIN CONDUCTOR 2 THERAPUTIC HUMAN INR VALUES INDICATIONS NORMAL [...] Little GFR Left ESRD GFR <15 on TRAIN CONDUCTOR 5 FINAL DIAGNOSIS Neck mass, excision: Benign [...] does not reveal any well-defined mass/lesion. Multiple account development representative sections are submitted in (A1-A4), (A5) contains account development representative from the ad ditional mature adipose tissue fragments. - 04/14/2021 - 1506 Signed Virginia Alamo MD 04/15/2021 1322 Procedures Date Code Description Status 04/22/2021 26327 Office/Outpatient New Moderate M DM 45-59 Minutes Completed 04/14/2021 27903 Excision Tumor, Soft Tissue, Nec k/Thorax, Subfacial, 5 CM Or > Completed 04/14/2021 98527 Excision Tumor, Soft Tissue, Nec k/Thorax, Subfacial, 5 CM Or > Completed 04/06/2021 78603 Office/Outpatient Established Mo d MDM 30-39 Min Completed 03/10/2021 16551 Office/Outpatient Established Lo w MDM 20-29 Min Completed 03/10/2021 20094 Laryngoscopy Flexible Fiberoptic Diagnostic Completed 02/26/2021 38421 Office/Outpatient New Moderate M DM 45-59 Minutes Completed 02/17/2021 96302 Office/Outpatient Established Lo w MDM 20-29 Min Completed 02/17/2021 37156 Laryngoscopy Flexible Fiberoptic Diagnostic Completed 12/17/2020 29750 Laparoscopy Surgical Closure Of Enterostomy, Large Or Small Intes Completed 12/17/2020 10381 Laparoscopy Surgical Closure Of Enterostomy, Large Or Small Intes Completed 12/17/2020 75535 Laparoscopy Surgical Mobilization Take Down Of Splenic Flexure Pe Completed 12/10/2020 26828 Laryngoscopy Flexible Fiberoptic Diagnostic Completed 11/26/2020 55132 Office/Outpatient Established Mo d MDM 30-39 Min Completed 11/26/2020 82612 Spirometry Completed Medical Devices Description No Information Available Encounters Type Date Location Provider Dx Diagnosis Office Visit 04/22/2021 10:30a [facility] Chasidy figueroa DO Z48.817 Encntr for surgical aftcr fol surgery on the skin, subcu Office Visit 04/22/2021 2:30p [facility] Mirella Corbett, RPA-C R13.10 Dysphagia, unspecified K21.9 Gastro-esophageal reflux dis ease without esophagitis R93.3 Abnormal findings on dx imag ing of prt digestive tract Office Visit 04/21/2021 9:00a [facility] Baldomero Modi MD L57.8 Oth skin 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 R22.2 Localized swelling, mass and lump, trunk Z48.89 Encounter for other specifie d surgical aftercare Office Visit 04/06/2021 11:15a [facility] Chasidy Reynoso DO 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, subcu of head, face and neck Office Visit 03/10/2021 10:00a [facility] Baldomero Modi MD 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, subcu of head, 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 Office Visit 02/26/2021 11:00a [facility] Chasidy Reynoso DO 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, subcu of head, face and neck L57.8 Oth skin 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 Office Visit 02/17/2021 9:15a [facility] Baldomero Modi MD C32.1 Malignant neoplasm of supraglottis D17.0 Prabhu lipomatous neoplm of ski n, subcu of head, face and neck Office Visit 02/05/2021 9:30a [facility] Ángel Falcon MD Z93.3 Colostomy status K57.20 Dvtrcli of lg int w perforat ion and abscess w/o bleeding K59.00 Constipation, unspecified Z48.815 Encntr for surgical aftcr [facility] Office Visit 01/01/2021 10:00a [facility] Ángel Falcon MD Z93.3 Colostomy status K57.20 Dvtrcli of lg int w perforat ion and abscess w/o bleeding K59.00 Constipation, unspecified Z48.815 Encntr for surgical aftcr fo llowing surgery on the [facility] sys Office Visit 12/23/2020 1:45p [facility] ERIK Álvarez Z93.3 Colostomy status R11.2 Nausea with vomiting, unspec ified Office Visit 11/26/2020 9:00a [facility] Raven To wne, ANP G47.33 Obstructive sleep apnea (adult) (pediatr ic) J44.9 Chronic obstructive pulmonar y disease, unspecified Z87.891 Personal history of nicotine dependence Assessments Date Code Description Provider 05/04/2021 L57.8 Other skin changes d ue to chronic exposure to nonionizing radiation Chasidy Reynoso, DO 04/22/2021 Z48.817 Encounter for surgic al aftercare following surgery on the skin and subcutaneous tissue Chasidy Angeles, DO 04/22/2021 R13.10 Dysphagia, unspecified Mirella A Sandralebois, [facility] 04/22/2021 K21.9 Gastro-esophageal reflux disease without esophagitis Mirella Espinozaboaquiles, [facility] 04/22/2021 R93.3 Abnormal findings on diagnostic imaging of other parts of digestive tract Mirella Gomesaquiles, [facility] 04/21/2021 L57.8 Other skin changes d ue [...] 11:30 am - Murphy Hudson M.D. at [facility] * 06/05/2021 8:30 am - Chasidy Reynoso DO at [facility] * 06/15/2021 7:50 am - Umang Patel MD at [facility] * 05/13/2021 8:30 am - TAM Brantley at [facility] 05/04/2021 - Chasidy Reynoso DO* L57.8 Other skin 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onic exposure to nonionizing radiation* Comments:* Healing well. Swelling resolving gradually.Continue with smoking cessation and applying Aquaphor to the incision area.Patient would like for us to reevaluate possible skin excess at the end of the incision.We wait until swelling goes down will reevaluate in 1 month. And plan to revise the edges of the scar is in the office procedure.Patient is agreeable with that plan.Return 1 month Functional Status Description No Information Available Mental Status Description No Information Available Referrals Refer to Reason for Referral Status Appt Date Murphy Hudson M.D. Closed [facility], [address] [place] [address] [phone] Murphy Hudson M.D. DYSPHAGIA Scheduled 04/13 [facility] [address], [address] [place] [address] [phone]
--- OUTSIDE RECORDS SUMMARY | 2021-06-08 08:16 | CCD | Continuity of Care Document ---
Author Author Foster KELLOGG DO Organization Unknown Address [address] [place] [address] Phone [phone] Care Team Providers Care Heat Treat Puller Name Role Phone LavonageNazia R.N. AUTM [phone] [facility] Rehab AUTM [phone] Robert Falcon MD AUTM [phone] [facility] Records AUTM [phone] Chantal Schmid M.D. AUTM [phone] Chasidy Kellogg D.O. AUTM [phone] Timmy Burns M.D. AUTM [phone] AUTM Unavailable Baldomero Modi M.D. AUTM [phone] Problems Active Problems Provider Date Obstructive sleep [...] Temperature 97.6 F Height 72 inches 6'0" [place] Body Weight 178 lb 04/22/2021 10:25am BP Systolic 132 mmHg BP Diastolic 78 mmHg Heart Rate 68 /min Respiratory Rate 18 /min Body Temperature 97.9 F Height 72 inches 6'0" Weight 228.00 lb BMI (Body Mass Index) 30.9 kg/m2 [place] Body Weight 178 lb Weight 103.421 kg BSA (Body Surface Area) 2.25 m2 Results Test Acquired Date Facility Test Result H/L Range Note Complete Blood Count 04/15/2021 [facility] Main Lab 0 [place], [place] [id number] [phone] White Blood Count 8.4 10 Normal 4.0-10.0 [...] % Normal 0-0 Basic Metabolic Profile 04/15/2021 [facility] Main Lab 0 [place], [place] [address] [phone] Glucose, Fasting 151 mg/dL High 70-100 Blood [...] mg/dL Normal 8.8-10.2 CBC With Differential 04/14/2021 [facility] Main Lab [address] [place], [place] [id number] [phone] White Blood Count 4.9 10 Normal 4.0-10.0 [...] 36.0-66.0 Lymph % 12.5 % Low 24.0-44.0 [place] % 1.6 % Low 2.0-8.0 Eos % 0.0 % Normal 0.0-3.0 Baso % 0.4 % Normal 0.0-1.0 Immature Granulocyte % 0.4 % Normal 0-3.0 Nucleated Red Blood Cell % 0.0 % Normal 0-0 Neutrophils # 4.2 10 Normal 1.5-8.5 Lymph # 0.6 10 Low 1.5-5.0 [place] # 0.1 10 Normal 0.0-0.8 Eos # 0.0 10 Normal 0.0-0.5 Baso # 0.0 10 Normal 0.0-0.2 Prothrombin Time/Inr 04/14/2021 [facility] Main Lab 0 [place], [place] [address] [phone] Prothrombin Time 14.7 seconds High 12.7-14.5 Inr 1.11 Normal 2 Laboratory test finding 04/14/2021 [facility] Main Lab [address] [place] [address] [phone] Partial Thromboplastin Time 42.2 seconds High 25 .9-37.0 3 Comprehensive Metabolic Profil 04/14/2021 [facility] Main Lab [address] [place] [address] [phone] Glucose, Fasting 135 mg/dL High 70-100 Blood [...] Ratio 0.8 Normal Laboratory test finding 04/14/2021 [facility] Main Lab [address] [place] [address] [phone] Pathology Request For Service (SEE NOTE) 5 FVL/[place] 11/26/2020 [employer] PDFReport SEE IMAGE FVC-Pred 4.98 L FVC-Pre 3.29 L FVC-%Pred-Pre 66 L FVC-LLN 3.99 L Fev1-Pred 3.73 L Fev1-Pre 2.19 L Fev1-%Pred-Pre 58 L Fev1-LLN 2.89 L Fev6-Pred 4.74 L Fev6-Pre 3.25 L Fev6-%Pred-Pre 68 L Fev6-LLN 3.78 L Eim9yzx-Zail 75 % Kfd3cyd-Tnh 67 % Biy9dxe-%Pred-Pre 89 % Pzn4jij-TBH 65 % Dvd6yzu-Isvv 95 % Cja7ayw-Qpv 99 % Cgl1loa-%Pred-Pre 103 % FEFMax-Pred 9.37 L/E/sec FEFMax-Pre 3.26 L/E/sec FEFMax-%Pred-Pre 34 L/E/sec FEFMax-LLN 6.91 L/E/sec Nyu0528-Jrsj 2.96 L/E/sec Oju5159-Vtx 1.36 L/E/sec Xba3360-%Pred-Pre 45 L/E/sec Lzu8255-IWY 1.27 L/E/sec ExpTime-Pre 6.76 sec Ybi6hea8-Duor 78 % Jer3nkf5-Nwz 67 % Bfx7nhb2-%Pred-Pre 85 % Wig1urz0-WFH 69 % 1 Units are mL/min/1.73 m2 Chronic Kidney Disease Staging per NKF: Stage I & II GFR >=60 Normal to Mildly Decreased Stage III GFR 30-59 Moderately Decreased Stage IV GFR 15-29 Severely Decreased Stage V GFR <15 Very Little GFR Left ESRD GFR <15 on MOTHER HELPER 2 THERAPUTIC HUMAN INR VALUES INDICATIONS NORMAL [...] Little GFR Left ESRD GFR <15 on MOTHER HELPER 5 FINAL DIAGNOSIS Neck mass, excision: Benign [...] does not reveal any well-defined mass/lesion. Multiple transportation services representative sections are submitted in (A1-A4), (A5) contains transportation services representative from the ad ditional mature adipose tissue fragments. - 04/14/2021 - 1506 Signed Virginia Alamo MD 04/15/2021 1322 Procedures Date Code Description Status 04/14/2021 93813 Excision Tumor, Soft Tissue, Nec k/Thorax, Subfacial, 5 CM Or > Completed 04/14/2021 58236 Excision Tumor, Soft Tissue, Nec k/Thorax, Subfacial, 5 CM Or > Completed 04/06/2021 16275 Office/Outpatient Established Mo d MDM 30-39 Min Completed 03/10/2021 50561 Office/Outpatient Established Lo w MDM 20-29 Min Completed 03/10/2021 82962 Laryngoscopy Flexible Fiberoptic Diagnostic Completed 02/26/2021 25284 Office/Outpatient New Moderate M DM 45-59 Minutes Completed 02/17/2021 47273 Office/Outpatient Established Lo w MDM 20-29 Min Completed 02/17/2021 66202 Laryngoscopy Flexible Fiberoptic Diagnostic Completed 12/17/2020 23504 Laparoscopy Surgical Closure Of Enterostomy, Large Or Small Intes Completed 12/17/2020 81198 Laparoscopy Surgical Closure Of Enterostomy, Large Or Small Intes Completed 12/17/2020 08146 Laparoscopy Surgical Mobilization Take Down Of Splenic Flexure Pe Completed 12/10/2020 81399 Laryngoscopy Flexible Fiberoptic Diagnostic Completed 11/26/2020 98400 Office/Outpatient Established Mo d MDM 30-39 Min Completed 11/26/2020 51985 Spirometry Completed Medical Devices Description No Information Available Encounters Type Date Location Provider Dx Diagnosis Office Visit 04/22/2021 10:30a [facility] Chasidy Pale y, DO Z48.817 Encntr for surgical aftcr fol surgery on the skin, subcu Office Visit 04/21/2021 9:00a [facility] Baldomero Modi MD L57.8 Oth skin 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 R22.2 Localized swelling, mass and lump, trunk Z48.89 Encounter for other specifie d surgical aftercare Office Visit 04/06/2021 11:15a [facility] Chasidy Kellogg DO 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, subcu of head, face and neck Office Visit 03/10/2021 10:00a [facility] Baldomero Modi MD 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, subcu of head, 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 Office Visit 02/26/2021 11:00a [facility] Chasidy Kellogg DO 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, subcu of head, face and neck L57.8 Oth skin 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 Office Visit 02/17/2021 9:15a [facility] Baldomero Modi MD C32.1 Malignant neoplasm of supraglottis D17.0 Prabhu lipomatous neoplm of ski n, subcu of head, face and neck Office Visit 02/05/2021 9:30a [facility] Ángel Falcon MD Z93.3 Colostomy status K57.20 Dvtrcli of lg int w perforat ion and abscess w/o bleeding K59.00 Constipation, unspecified Z48.815 Encntr for surgical aftcr fo llowing surgery on the [facility] sys Office Visit 01/01/2021 10:00a [facility] Ángel Falcon MD Z93.3 Colostomy status K57.20 Dvtrcli of lg int w perforat ion and abscess w/o bleeding K59.00 Constipation, unspecified Z48.815 Encntr for surgical aftcr fo llowing surgery on the [facility] sys Office Visit 12/23/2020 1:45p [facility] ERIK Álvarez Z93.3 Colostomy status R11.2 Nausea with vomiting, unspec ified Office Visit 11/26/2020 9:00a [facility] Raven To TAM reza G47.33 Obstructive sleep apnea (adult) (pediatr ic) J44.9 Chronic obstructive pulmonar y disease, unspecified Z87.891 Personal history of nicotine dependence Assessments Date Code Description Provider 04/22/2021 Z48.817 Encounter for surgic al aftercare following surgery on the skin and subcutaneous tissue Chasidy Angeles, DO 04/22/2021 R13.10 Dysphagia, unspecified Mirella Corbett, [facility] 04/22/2021 K21.9 Gastro-esophageal reflux disease without esophagitis Mirelal Corbett, [facility] 04/22/2021 R93.3 Abnormal findings on diagnostic imaging of other parts of digestive tract Mirella Corbett, [facility] 04/21/2021 L57.8 Other skin changes [...] 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 Baldomero Moid MD 02/17/2021 D17.0 Benign lipomatous ne oplasm [...] TAM Brantley Plan of Treatment Future Appointment(s):* 06/15/2021 7:50 am - Umang Patel MD at [facility] * 05/13/2021 8:30 am - TAM Brantley at [facility] 04/22/2021 - Mirella Corbett, [facility]* R13.10 Dysphagia, unspecified * K21.9 Gastro-esophageal reflux [...] Status Appt Date Murphy Hudson M.D. Closed [facility] [address] [facility], [address] [place] [id number] [phone] Murphy Hudson M.D. DYSPHAGIA Scheduled 04/13 [facility] [address] [facility], [address] [address] [phone]
--- OUTSIDE RECORDS SUMMARY | 2021-06-08 08:17 | CCD | Continuity of Care Document ---
Author Author [facility] Organization Unknown Address [address], [address] [place] [address] Phone [phone] Care Team Providers Care Cloth Finishing Range Tender Name Role Phone Nazia Blum R.N. AUTM [phone] [facility] Rehab AUTM [phone] Robert Falcno MD AUTM [phone] [facility] Records AUTM [phone] Chantal Schmid M.D. AUTM [phone] Chasidy Reynoso D.O. AUTM [phone] Timmy Burns M.D. AUTM [phone] AUTM Unavailable Baldomero Modi M.D. AUTM [phone] Problems Active Problems Provider Date Obstructive sleep apnea syndrome TAM Brantley Onset: 01/30/2020 Dyspnea TAM Brantley Onset: 10/02/2020 Chronic obstructive lung disease TAM Branltey Onset: 10/02/2020 Ex-smoker TAM Brantley Onset: 10/02/2020 [...] lb BMI (Body Mass Index) 30.9 kg/m2 [place] Body Weight 178 lb Weight 103.421 kg BSA (Body Surface Area) 2.25 m2 04/21/2021 8:56am Height 72 inches 6'0" Weight 235.00 lb BMI (Body Mass Index) 31.9 kg/m2 [place] Body Weight 178 lb Weight 106.596 kg BSA (Body Surface Area) 2.28 m2 Results Test Acquired Date Facility Test Result H/L Range Note Complete Blood Count 04/15/2021 [facility] Main Lab [address] [place], [place] [id number] [phone] White Blood Count 8.4 10 Normal 4.0-10.0 [...] % Normal 0-0 Basic Metabolic Profile 04/15/2021 [facility] Main Lab [address] [place], [place] [id number] [phone] Glucose, Fasting 151 mg/dL High 70-100 Blood [...] mg/dL Normal 8.8-10.2 CBC With Differential 04/14/2021 [facility] Main Lab [address] [place] [address] [phone] White Blood Count 4.9 10 Normal 4.0-10.0 [...] 36.0-66.0 Lymph % 12.5 % Low 24.0-44.0 [place] % 1.6 % Low 2.0-8.0 Eos % 0.0 % Normal 0.0-3.0 Baso % 0.4 % Normal 0.0-1.0 Immature Granulocyte % 0.4 % Normal 0-3.0 Nucleated Red Blood Cell % 0.0 % Normal 0-0 Neutrophils # 4.2 10 Normal 1.5-8.5 Lymph # 0.6 10 Low 1.5-5.0 [place] # 0.1 10 Normal 0.0-0.8 Eos # 0.0 10 Normal 0.0-0.5 Baso # 0.0 10 Normal 0.0-0.2 Prothrombin Time/Inr 04/14/2021 [facility] enter Main Lab [address] [place] [address] [phone] Prothrombin Time 14.7 seconds High 12.7-14.5 Inr 1.11 Normal 2 Laboratory test finding 04/14/2021 [facility] Main Lab [address] [place], [place] [id number] [phone] Partial Thromboplastin Time 42.2 seconds High 25 .9-37.0 3 Comprehensive Metabolic Profil 04/14/2021 [facility] Main Lab [address] [place], [place] [id number] [phone] Glucose, Fasting 135 mg/dL High 70-100 Blood [...] Ratio 0.8 Normal Laboratory test finding 04/14/2021 [facility] Main Lab [address] [place], [place] [id number] [phone] Pathology Request For Service (SEE NOTE) 5 FVL/[place] 11/26/2020 [employer] PDFReport SEE IMAGE FVC-Pred 4.98 L FVC-Pre 3.29 L FVC-%Pred-Pre 66 L FVC-LLN 3.99 L Fev1-Pred 3.73 L Fev1-Pre 2.19 L Fev1-%Pred-Pre 58 L Fev1-LLN 2.89 L Fev6-Pred 4.74 L Fev6-Pre 3.25 L Fev6-%Pred-Pre 68 L Fev6-LLN 3.78 L Qya8dwj-Vbwu 75 % Dul9qjb-Ibo 67 % Rri1nqk-%Pred-Pre 89 % Ezv5hru-ZPE 65 % Bja2get-Qmux 95 % Ajj7rgb-Azs 99 % Rlt6iml-%Pred-Pre 103 % FEFMax-Pred 9.37 L/E/sec FEFMax-Pre 3.26 L/E/sec FEFMax-%Pred-Pre 34 L/E/sec FEFMax-LLN 6.91 L/E/sec Xgf4342-Naad 2.96 L/E/sec Btx3119-Wsa 1.36 L/E/sec Vwn4424-%Pred-Pre 45 L/E/sec Nsb4376-HVB 1.27 L/E/sec ExpTime-Pre 6.76 sec Aml9cwy2-Wnil 78 % Ici2yni8-Egy 67 % Kqu5nnd9-%Pred-Pre 85 % Rav9jxh8-BQR 69 % 1 Units are mL/min/1.73 m2 Chronic Kidney Disease Staging per NKF: Stage I & II GFR >=60 Normal to Mildly Decreased Stage III GFR 30-59 Moderately Decreased Stage IV GFR 15-29 Severely Decreased Stage V GFR <15 Very Little GFR Left ESRD GFR <15 on MODEL MAKER APPRENTICE 2 THERAPUTIC HUMAN INR VALUES INDICATIONS NORMAL [...] Little GFR Left ESRD GFR <15 on MODEL MAKER APPRENTICE 5 FINAL DIAGNOSIS Neck mass, excision: Benign [...] does not reveal any well-defined mass/lesion. Multiple construction representative sections are submitted in (A1-A4), (A5) contains construction representative from the ad ditional mature adipose tissue fragments. - 04/14/2021 - 1506 Signed Virginia Alamo MD 04/15/2021 1322 Procedures Date Code Description Status 04/14/2021 66851 Excision Tumor, Soft Tissue, Nec k/Thorax, Subfacial, 5 CM Or > Completed 04/06/2021 80328 Office/Outpatient Established Mo d MDM 30-39 Min Completed 03/10/2021 68336 Office/Outpatient Established Lo w MDM 20-29 Min Completed 03/10/2021 38313 Laryngoscopy Flexible Fiberoptic Diagnostic Completed 02/26/2021 02062 Office/Outpatient New Moderate M DM 45-59 Minutes Completed 02/17/2021 85025 Office/Outpatient Established Lo w MDM 20-29 Min Completed 02/17/2021 23432 Laryngoscopy Flexible Fiberoptic Diagnostic Completed 12/17/2020 82534 Laparoscopy Surgical Closure Of Enterostomy, Large Or Small Intes Completed 12/17/2020 45443 Laparoscopy Surgical Closure Of Enterostomy, Large Or Small Intes Completed 12/17/2020 68055 Laparoscopy Surgical Mobilization Take Down Of Splenic Flexure Pe Completed 12/10/2020 27618 Laryngoscopy Flexible Fiberoptic Diagnostic Completed 11/26/2020 31018 Office/Outpatient Established Mo d MDM 30-39 Min Completed 11/26/2020 63945 Spirometry Completed 10/29/2020 00843 Laryngoscopy Flexible Fiberoptic Diagnostic Completed 10/21/2020 20162 Office/Outpatient Established Lo w MDM 20-29 Min Completed Medical Devices Description No Information Available Encounters Type Date Location Provider Dx Diagnosis Office Visit 04/06/2021 11:15a [facility] Plastic Surgery Chasidy Reynoso DO 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, subcu of head, face and neck Office Visit 03/10/2021 10:00a [facility] ENT Practice Baldomero Modi MD 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, subcu of head, 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 Office Visit 02/26/2021 11:00a [facility] Plastic Surgery Chasidy Reynoso DO 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, subcu of head, face and neck L57.8 Oth skin 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 Office Visit 02/17/2021 9:15a [facility] ENT Practice Baldomero Modi MD C32.1 Malignant neoplasm of supraglottis D17.0 Prabhu lipomatous neoplm of ski n, subcu of head, face and neck Office Visit 12/23/2020 1:45p [facility] Surgery Practice ERIK Álvarez Z93.3 Colostomy status R11.2 Nausea with vomiting, unspec ified Office Visit 11/26/2020 9:00a [facility] Pulmonary/Thoracic Raven To TAM reza G47.33 Obstructive sleep apnea (adult) (pediatr ic) J44.9 Chronic obstructive pulmonar y disease, unspecified Z87.891 Personal history of nicotine dependence Office Visit 10/21/2020 11:15a [facility] Surgery Practice Ángel Falcon MD G47.33 Obstructive sleep apnea (aguilar lt) (pediatric) J44.9 Chronic obstructive pulmonar y disease, unspecified J37.0 Chronic laryngitis Z93.3 Colostomy status K57.20 Dvtrcli of lg int w perforat ion and abscess w/o bleeding Assessments Date Code Description Provider 04/22/2021 R13.10 Dysphagia, unspecified Mirella Corbett, RPA-C 04/22/2021 K21.9 Gastro-esophageal reflux disease without esophagitis Mirella Corbett, RPA-C 04/22/2021 R93.3 Abnormal findings on diagnostic imaging of other parts of digestive tract Mirella Corbett, RPA-C 04/21/2021 L57.8 Other skin changes d ue to chronic exposure to nonionizing radiation Baldomero Modi MD 04/21/2021 R22.2 Localized swelling, mass and lum p, trunk Baldomero Modi MD 04/14/2021 L57.8 Other skin changes d ue to chronic exposure to nonionizing radiation Chasidy Reynoso DO 04/14/2021 R22.2 Localized swelling, mass and lum p, trunk Baldomero Modi MD 04/14/2021 Z85.21 Personal history [...] head, face and neck Baldomero Modi MD 01/01/2021 Z93.3 Colostomy status Robert turk MD 01/01/2021 K57.20 Diverticulitis of la rge intestine with perforation and abscess without bleeding Robert Falcon MD 01/01/2021 K59.00 Constipation Robert zheng MD 12/23/2020 Z93.3 Colostomy status ERIK Burleson [...] neoplasm of supraglott is Baldomero Modi MD 10/21/2020 G47.33 Obstructive sleep apnea (adult) (pediatric) Robert Falcon MD 10/21/2020 J44.9 Chronic obstructive pulmonary di sease, unspecified Robert Falcon MD 10/21/2020 J37.0 Chronic laryngitis Robert Nelson MD 10/21/2020 Z93.3 Colostomy status Robert turk MD 10/21/2020 K57.20 Diverticulitis of la rge intestine with perforation and abscess without bleeding Robert Falcon MD Plan of Treatment Future Appointment(s):* 05/04/2021 8:30 am - Chasidy Reynoso DO at [facility] Plastic Surgery * 06/15/2021 7:50 am - Umang Patel MD at [facility] ENT Practice * 05/13/2021 8:30 am - TAM Brantley at [facility] Pulmonary/Thoracic 04/22/2021 - Mirella Corbett RPA-Gian* R13.10 Dysphagia, unspecified * K21.9 Gastro-esophageal reflux disease without esophagitis * R93.3 Abnormal findings on diagnostic imaging of other parts of digestive tract * * New Orders:* Endoscopy with possible dilation, Ordered: 04/22/21 * Comments:* Will arrange for upper endoscopy and possible [...] Status Appt Date Murphy Hudson M.D. Closed [address] [id number] [phone] Murphy Hudson M.D. DYSPHAGIA Scheduled 04/[address] [id number] [phone]
--- OUTSIDE RECORDS SUMMARY | 2021-06-08 08:17 | CCD | Continuity of Care Document ---
Author Author Fotser MODI MD Organization Unknown Address [address] [place] [address] Phone [phone] Care Team Providers Care Working Foreman Name Role Phone Nazia Blum R.N. AUTM [phone] [facility] Rehab AUTM [phone] Robert Falcon MD AUTM [phone] [facility] Records AUTM [phone] Chantal Schmid M.D. AUTM [phone] Chasidy Reynoso D.O. AUTM [phone] Timmy Burns M.D. AUTM [phone] AUTM Unavailable Baldomero Modi M.D. AUTM [phone] Problems Active Problems Provider Date Obstructive sleep apnea syndrome TAM Brantley Onset: 01/30/2020 Dyspnea TAM Brantley Onset: 10/02/2020 Chronic obstructive lung disease TMA Brantley Onset: 10/02/2020 Ex-smoker TAM Brantley Onset: [...] lb BMI (Body Mass Index) 30.9 kg/m2 [place] Body Weight 178 lb Weight 103.421 kg BSA (Body Surface Area) 2.25 m2 04/21/2021 8:56am Height 72 inches 6'0" Weight 235.00 lb BMI (Body Mass Index) 31.9 kg/m2 [place] Body Weight 178 lb Weight 106.596 kg BSA (Body Surface Area) 2.28 m2 Results Test Acquired Date Facility Test Result H/L Range Note Complete Blood Count 04/15/2021 [facility] Main Lab [address] [place], [place] [id number] [phone] White Blood Count 8.4 10 Normal 4.0-10.0 [...] % Normal 0-0 Basic Metabolic Profile 04/15/2021 [facility] Main Lab [address] [place], [place] [id number] [phone] Glucose, Fasting 151 mg/dL High 70-100 Blood [...] mg/dL Normal 8.8-10.2 CBC With Differential 04/14/2021 [facility] Main Lab [address] [place] [address] [phone] White Blood Count 4.9 10 Normal 4.0-10.0 [...] 36.0-66.0 Lymph % 12.5 % Low 24.0-44.0 [place] % 1.6 % Low 2.0-8.0 Eos % 0.0 % Normal 0.0-3.0 Baso % 0.4 % Normal 0.0-1.0 Immature Granulocyte % 0.4 % Normal 0-3.0 Nucleated Red Blood Cell % 0.0 % Normal 0-0 Neutrophils # 4.2 10 Normal 1.5-8.5 Lymph # 0.6 10 Low 1.5-5.0 [place] # 0.1 10 Normal 0.0-0.8 Eos # 0.0 10 Normal 0.0-0.5 Baso # 0.0 10 Normal 0.0-0.2 Prothrombin Time/Inr 04/14/2021 [facility] enter Main Lab [address] [place] [address] [phone] Prothrombin Time 14.7 seconds High 12.7-14.5 Inr 1.11 Normal 2 Laboratory test finding 04/14/2021 [facility] Main Lab [address] [place], [place] [address] [phone] Partial Thromboplastin Time 42.2 seconds High 25 .9-37.0 3 Comprehensive Metabolic Profil 04/14/2021 [facility] Main Lab [address] [place], [place] [id number] [phone] Glucose, Fasting 135 mg/dL High 70-100 Blood [...] Ratio 0.8 Normal Laboratory test finding 04/14/2021 [facility] Main Lab [address] [place], [place] [id number] [phone] Pathology Request For Service (SEE NOTE) 5 FVL/[place] 11/26/2020 [employer] PDFReport SEE IMAGE FVC-Pred 4.98 L FVC-Pre 3.29 L FVC-%Pred-Pre 66 L FVC-LLN 3.99 L Fev1-Pred 3.73 L Fev1-Pre 2.19 L Fev1-%Pred-Pre 58 L Fev1-LLN 2.89 L Fev6-Pred 4.74 L Fev6-Pre 3.25 L Fev6-%Pred-Pre 68 L Fev6-LLN 3.78 L Dkz0soy-Pusm 75 % Tvb5fco-Mfv 67 % Iuv8owc-%Pred-Pre 89 % Mui1xrc-MKO 65 % Xef0nhz-Aewk 95 % Mto6jhy-Bso 99 % Yok6eqd-%Pred-Pre 103 % FEFMax-Pred 9.37 L/E/sec FEFMax-Pre 3.26 L/E/sec FEFMax-%Pred-Pre 34 L/E/sec FEFMax-LLN 6.91 L/E/sec Acx1625-Wzhy 2.96 L/E/sec Mvp5474-Qxy 1.36 L/E/sec Sxg7345-%Pred-Pre 45 L/E/sec Zxw3319-JMS 1.27 L/E/sec ExpTime-Pre 6.76 sec Eub1msi2-Bdaq 78 % Jfb8cfq4-Mll 67 % Wfq2emz0-%Pred-Pre 85 % Bws0axg9-NBL 69 % 1 Units are mL/min/1.73 m2 Chronic Kidney Disease Staging per NKF: Stage I & II GFR >=60 Normal to Mildly Decreased Stage III GFR 30-59 Moderately Decreased Stage IV GFR 15-29 Severely Decreased Stage V GFR <15 Very Little GFR Left ESRD GFR <15 on DUMPLING MACHINE OPERATOR 2 THERAPUTIC HUMAN INR VALUES INDICATIONS NORMAL [...] Little GFR Left ESRD GFR <15 on DUMPLING MACHINE OPERATOR 5 FINAL DIAGNOSIS Neck mass, excision: Benign [...] does not reveal any well-defined mass/lesion. Multiple district sales representative sections are submitted in (A1-A4), (A5) contains district sales representative from the ad ditional mature adipose tissue fragments. - 04/14/2021 - 1506 Signed Virginia Alamo MD 04/15/2021 1322 Procedures Date Code Description Status 04/14/2021 59495 Excision Tumor, Soft Tissue, Nec k/Thorax, Subfacial, 5 CM Or > Completed 04/14/2021 00944 Excision Tumor, Soft Tissue, Nec k/Thorax, Subfacial, 5 CM Or > Completed 04/06/2021 97600 Office/Outpatient Established Mo d MDM 30-39 Min Completed 03/10/2021 49122 Office/Outpatient Established Lo w MDM 20-29 Min Completed 03/10/2021 95422 Laryngoscopy Flexible Fiberoptic Diagnostic Completed 02/26/2021 27782 Office/Outpatient New Moderate M DM 45-59 Minutes Completed 02/17/2021 78420 Office/Outpatient Established Lo w MDM 20-29 Min Completed 02/17/2021 49008 Laryngoscopy Flexible Fiberoptic Diagnostic Completed 12/17/2020 26784 Laparoscopy Surgical Closure Of Enterostomy, Large Or Small Intes Completed 12/17/2020 20165 Laparoscopy Surgical Closure Of Enterostomy, Large Or Small Intes Completed 12/17/2020 20152 Laparoscopy Surgical Mobilization Take Down Of Splenic Flexure Pe Completed 12/10/2020 24041 Laryngoscopy Flexible Fiberoptic Diagnostic Completed 11/26/2020 26027 Office/Outpatient Established Mo d MDM 30-39 Min Completed 11/26/2020 16346 Spirometry Completed 10/29/2020 79862 Laryngoscopy Flexible Fiberoptic Diagnostic Completed Medical Devices Description No Information Available Encounters Type Date Location Provider Dx Diagnosis Office Visit 04/06/2021 11:15a [facility] Plastic Surgery Chasidy Reynoso DO 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, subcu of head, face and neck Office Visit 03/10/2021 10:00a [facility] ENT Practice Baldomero Modi MD 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, subcu of head, 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 Office Visit 02/26/2021 11:00a [facility] Plastic Surgery Chasidy Reynoso, DO 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, subcu of head, face and neck L57.8 Oth skin 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 Office Visit 02/17/2021 9:15a [facility] ENT Practice Baldomero Modi MD C32.1 Malignant neoplasm of supraglottis D17.0 Prabhu lipomatous neoplm of ski n, subcu of head, face and neck Office Visit 01/01/2021 10:00a [facility] Surgery Practice Ángel Falcon MD Z93.3 Colostomy status K57.20 Dvtrcli of lg int w perforat ion and abscess w/o bleeding K59.00 Constipation, unspecified Z48.815 Encntr for surgical aftcr fo llowing surgery on the dgstv sys Office Visit 12/23/2020 1:45p [facility] Surgery Practice ERIK Álvarez Z93.3 Colostomy status R11.2 Nausea with vomiting, unspec ified Office Visit 11/26/2020 9:00a [facility] Pulmonary/Thoracic Raven To wne, ANP G47.33 Obstructive sleep apnea (adult) (pediatr ic) J44.9 Chronic obstructive pulmonar y disease, unspecified Z87.891 Personal history of nicotine dependence Assessments Date Code Description Provider 04/22/2021 R13.10 Dysphagia, unspecified Chasidy Pal radha, DO 04/22/2021 L57.8 Other skin changes d ue to chronic exposure to nonionizing radiation Chasidy Reynoso, DO 04/22/2021 R13.10 Dysphagia, unspecified Mirella A Chelle, RPA-C 04/22/2021 D17.0 Benign lipomatous ne oplasm of skin and subcutaneous tissue of head, face and neck Chasidy Reynoso, DO 04/22/2021 Z48.817 Encounter for surgic al aftercare following surgery on the skin and subcutaneous tissue Chasidy Reynoso, DO 04/22/2021 K21.9 Gastro-esophageal reflux disease without esophagitis Mirella A Chelle, RPA-C 04/22/2021 R93.3 Abnormal findings on diagnostic imaging of other parts of digestive tract Mirella Espinozaboaquiles, RPA-C 04/21/2021 L57.8 Other skin changes d ue to chronic exposure to nonionizing radiation Baldomero Modi MD 04/21/2021 R22.2 Localized swelling, mass and lum p, trunk Baldomero Modi MD 04/14/2021 R22.1 Localized swelling, [...] MD 02/05/2021 K59.00 Constipation Robert zheng MD 01/01/2021 Z93.3 Colostomy status Robert turk [...] pulmonary di sease, unspecified Raven Duncan, TAM 11/26/2020 Z87.891 Personal history of nicotine dep endence TAM Brantley 11/25/2020 J44.9 Chronic obstructive pulmonary di sease, unspecified Raven Duncan, TAM 11/25/2020 G47.33 Obstructive sleep apnea (adult) (pediatric) TAM Brantley 10/29/2020 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 Baldomero Modi MD Plan of Treatment Future Appointment(s):* 05/04/2021 8:30 am - Chasidy Reynoso DO at [facility] Plastic Surgery * 06/15/2021 7:50 am - Umang Patel MD at [facility] ENT Practice * 05/13/2021 8:30 am - TAM Brantley at [facility] Pulmonary/Thoracic 04/22/2021 - Mirella Corbett RPA-Gian* R13.10 [...] Status Appt Date Murphy Hudson M.D. Closed [facility] [address] [facility], [address] [place] [id number] [phone] Murphy Hudson M.D. DYSPHAGIA Scheduled 04/13 [facility] [address] [facility], [address] [address] [phone]
--- OUTSIDE RECORDS SUMMARY | 2021-06-08 08:17 | CCD | Continuity of Care Document ---
Author Author Foster KELLOGG DO Organization Unknown Address [address] [place] [address] Phone [phone] Care Team Providers Care Layout Designer Name Role Phone LavonageNazia R.N. AUTM [phone] [facility] Rehab AUTM [phone] Robert Falcon MD AUTM [phone] [facility] Records AUTM [phone] Chantal Schmid M.D. AUTM [phone] Chasidy Kellogg D.O. AUTM [phone] Timmy Burns M.D. AUTM [phone] AUTM Unavailable Baldomero Modi M.D. AUTM [phone] Problems Active Problems Provider Date Obstructive sleep [...] lb BMI (Body Mass Index) 30.9 kg/m2 [place] Body Weight 178 lb Weight 103.421 kg BSA (Body Surface Area) 2.25 m2 04/21/2021 8:56am Height 72 inches 6'0" Weight 235.00 lb BMI (Body Mass Index) 31.9 kg/m2 [place] Body Weight 178 lb Weight 106.596 kg BSA (Body Surface Area) 2.28 m2 Results Test Acquired Date Facility Test Result H/L Range Note Complete Blood Count 04/15/2021 [facility] Main Lab 0 [place], [place] [id number] [phone] White Blood Count 8.4 10 Normal 4.0-10.0 [...] % Normal 0-0 Basic Metabolic Profile 04/15/2021 [facility] Main Lab 0 [place], [place] [id number] [phone] Glucose, Fasting 151 mg/dL High 70-100 Blood [...] mg/dL Normal 8.8-10.2 CBC With Differential 04/14/2021 [facility] Main Lab [address] [place] [address] [phone] White Blood Count 4.9 10 Normal 4.0-10.0 [...] 36.0-66.0 Lymph % 12.5 % Low 24.0-44.0 [place] % 1.6 % Low 2.0-8.0 Eos % 0.0 % Normal 0.0-3.0 Baso % 0.4 % Normal 0.0-1.0 Immature Granulocyte % 0.4 % Normal 0-3.0 Nucleated Red Blood Cell % 0.0 % Normal 0-0 Neutrophils # 4.2 10 Normal 1.5-8.5 Lymph # 0.6 10 Low 1.5-5.0 [place] # 0.1 10 Normal 0.0-0.8 Eos # 0.0 10 Normal 0.0-0.5 Baso # 0.0 10 Normal 0.0-0.2 Prothrombin Time/Inr 04/14/2021 [facility] Main Lab [address] [place] [address] [phone] Prothrombin Time 14.7 seconds High 12.7-14.5 Inr 1.11 Normal 2 Laboratory test finding 04/14/2021 [facility] Main Lab [address] [place], [place] [id number] [phone] Partial Thromboplastin Time 42.2 seconds High 25 .9-37.0 3 Comprehensive Metabolic Profil 04/14/2021 [facility] Main Lab 0 [place], [place] [address]375 [phone] Glucose, Fasting 135 mg/dL High 70-100 Blood [...] Ratio 0.8 Normal Laboratory test finding 04/14/2021 [facility] Main Lab 0 [place] [address] [phone] Pathology Request For Service (SEE NOTE) 5 FVL/[place] 11/26/2020 [facility] PDFReport SEE IMAGE FVC-Pred 4.98 L FVC-Pre 3.29 L FVC-%Pred-Pre 66 L FVC-LLN 3.99 L Fev1-Pred 3.73 L Fev1-Pre 2.19 L Fev1-%Pred-Pre 58 L Fev1-LLN 2.89 L Fev6-Pred 4.74 L Fev6-Pre 3.25 L Fev6-%Pred-Pre 68 L Fev6-LLN 3.78 L Jfd4mba-Mjey 75 % Hdm8ucm-Mvh 67 % Ehe5eoa-%Pred-Pre 89 % Nqz2zbv-FHO 65 % Mcl1peg-Dhch 95 % Ucw6wkm-Zrg 99 % Yvs1trq-%Pred-Pre 103 % FEFMax-Pred 9.37 L/E/sec FEFMax-Pre 3.26 L/E/sec FEFMax-%Pred-Pre 34 L/E/sec FEFMax-LLN 6.91 L/E/sec Emw8219-Kshr 2.96 L/E/sec Szn9925-Ada 1.36 L/E/sec Bwq8231-%Pred-Pre 45 L/E/sec Uwq4713-KAB 1.27 L/E/sec ExpTime-Pre 6.76 sec Hdn3ksr3-Byoq 78 % Thw6jaj7-Swf 67 % Lov1pql7-%Pred-Pre 85 % Gqf2zou6-TFK 69 % 1 Units are mL/min/1.73 m2 Chronic Kidney Disease Staging per NKF: Stage I & II GFR >=60 Normal to Mildly Decreased Stage III GFR 30-59 Moderately Decreased Stage IV GFR 15-29 Severely Decreased Stage V GFR <15 Very Little GFR Left ESRD GFR <15 on CONCRETE BUILDING ASSEMBLER 2 THERAPUTIC HUMAN INR VALUES INDICATIONS NORMAL [...] Little GFR Left ESRD GFR <15 on [employer]CR[employer]ILDING [employer]ER 5 FINAL DIAGNOSIS Neck mass, excision: Benign [...] does not reveal any well-defined mass/lesion. Multiple provider relations representative sections are submitted in ([id number]), (A5) contains provider relations representative from the ad ditional mature adipose tissue fragments. - 04/14/2021 - 1506 Signed Virginia Alamo MD 04/15/2021 1322 Procedures Date Code Description Status 04/14/2021 04311 Excision Tumor, Soft Tissue, Nec k/Thorax, Subfacial, 5 CM Or > Completed 04/14/2021 71166 Excision Tumor, Soft Tissue, Nec k/Thorax, Subfacial, 5 CM Or > Completed 04/06/2021 93256 Office/Outpatient Established Mo d MDM 30-39 Min Completed 03/10/2021 96965 Office/Outpatient Established Lo w MDM 20-29 Min Completed 03/10/2021 71533 Laryngoscopy Flexible Fiberoptic Diagnostic Completed 02/26/2021 16141 Office/Outpatient New Moderate M DM 45-59 Minutes Completed 02/17/2021 00102 Office/Outpatient Established Lo w MDM 20-29 Min Completed 02/17/2021 99809 Laryngoscopy Flexible Fiberoptic Diagnostic Completed 12/17/2020 56150 Laparoscopy Surgical Closure Of Enterostomy, Large Or Small Intes Completed 12/17/2020 49644 Laparoscopy Surgical Closure Of Enterostomy, Large Or Small Intes Completed 12/17/2020 99445 Laparoscopy Surgical Mobilization Take Down Of Splenic Flexure Pe Completed 12/10/2020 06310 Laryngoscopy Flexible Fiberoptic Diagnostic Completed 11/26/2020 48948 Office/Outpatient Established Mo d MDM 30-39 Min Completed 11/26/2020 93048 Spirometry Completed 10/29/2020 25472 Laryngoscopy Flexible Fiberoptic Diagnostic Completed Medical Devices Description No Information Available Encounters Type Date Location Provider Dx Diagnosis Office Visit 04/06/2021 11:15a [facility] Plastic Surgery Chasidy Kellogg DO 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, subcu of head, face and neck Office Visit 03/10/2021 10:00a [facility] ENT Practice Baldomero Modi MD 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, subcu of head, 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 Office Visit 02/26/2021 11:00a [facility] Plastic Surgery Chasidy Kellogg, DO 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, subcu of head, face and neck L57.8 Oth skin 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 Office Visit 02/17/2021 9:15a [facility] ENT Practice Baldomero Modi MD C32.1 Malignant neoplasm of supraglottis D17.0 Prabhu lipomatous neoplm of ski n, subcu of head, face and neck Office Visit 02/05/2021 9:30a [facility] Surgery Practice Edu darrell Falcon MD Z93.3 Colostomy status K57.20 Dvtrcli of lg int w perforat ion and abscess w/o bleeding K59.00 Constipation, unspecified Z48.815 Encntr for surgical aftcr fo [facility] Office Visit 01/01/2021 10:00a [facility] Surgery Practice Ángel Falcon MD Z93.3 Colostomy status K57.20 Dvtrcli of lg int w perforat ion and abscess w/o bleeding K59.00 Constipation, unspecified Z48.815 Encntr for surgical aftcr fo [facility]lowing surgery on [facility] Office Visit 12/23/2020 1:45p [facility] Surgery Practice ERIK Álvarez Z93.3 Colostomy status R11.2 Nausea with vomiting, unspec ified Office Visit 11/26/2020 9:00a [facility] Pulmonary/Thoracic Raven To wne, ANP G47.33 Obstructive sleep apnea (adult) (pediatr ic) J44.9 Chronic obstructive pulmonar y disease, unspecified Z87.891 Personal history of nicotine dependence Assessments Date Code Description Provider 04/22/2021 R13.10 Dysphagia, unspecified Chasidy Cristhian garcia, DO 04/22/2021 L57.8 Other skin changes d ue to chronic exposure to nonionizing radiation Chasidy Kellogg, DO 04/22/2021 R13.10 Dysphagia, unspecified Mirella A Chelle, RPA-C 04/22/2021 D17.0 Benign lipomatous ne oplasm of skin and subcutaneous tissue of head, face and neck Chasidy Kellogg, DO 04/22/2021 Z48.817 Encounter for surgic al aftercare following surgery on the skin and subcutaneous tissue Chasidy Angeles, DO 04/22/2021 K21.9 Gastro-esophageal reflux disease without esophagitis Mirella Espinozatracy, [facility] 04/22/2021 R93.3 Abnormal findings on diagnostic imaging of other parts of digestive tract Mirella Espinozatracy, [facility]- 04/21/2021 L57.8 Other skin changes d ue [...] intestine with perforation and abscess without bleeding Rboert Falcon MD 01/01/2021 K59.00 Constipation Robert zheng [...] 8:30 am - Chasidy Kellogg DO at [facility] Plastic Surgery * 06/15/2021 7:50 am - Umang Patel MD at [facility] ENT Practice * 05/13/2021 8:30 am - TAM Brantley at [facility] Pulmonary/Thoracic 04/22/2021 - Mirella Corbett RPA-C* R13.10 [...] Status Appt Date Murphy Hudson M.D. Closed [facility] [address] [facility], [address] [place] [address] [id number] [phone] Murphy Hudson M.D. DYSPHAGIA Scheduled 04/13 [facility] [address] [facility], [address] [address] [phone]
--- OUTSIDE RECORDS SUMMARY | 2021-06-08 08:17 | CCD | Continuity of Care Document ---
Author Author Foster KELLOGG DO Organization Unknown Address [address] [place] [address] Phone [phone] Care Team Providers Care Field Service Engineer Name Role Phone LavonageNazia R.N. AUTM [phone] [facility] Rehab AUTM [phone] Robert Falcon MD AUTM [phone] [facility] Records AUTM [phone] Chantal Schmid M.D. AUTM [phone] Chasidy Kellogg D.O. AUTM [phone] Timmy Burns M.D. AUTM [phone] AUTM Unavailable Baldomero Modi M.D. AUTM [phone] Problems Active Problems Provider Date Obstructive sleep [...] lb BMI (Body Mass Index) 30.9 kg/m2 [place] Body Weight 178 lb Weight 103.421 kg BSA (Body Surface Area) 2.25 m2 04/21/2021 8:56am Height 72 inches 6'0" Weight 235.00 lb BMI (Body Mass Index) 31.9 kg/m2 [place] Body Weight 178 lb Weight 106.596 kg BSA (Body Surface Area) 2.28 m2 Results Test Acquired Date Facility Test Result H/L Range Note Complete Blood Count 04/15/2021 [facility] Main Lab 0 [place], [place] [id number] [phone] White Blood Count 8.4 10 Normal 4.0-10.0 [...] % Normal 0-0 Basic Metabolic Profile 04/15/2021 [facility] Main Lab 0 [place], [place] [id number] [phone] Glucose, Fasting 151 mg/dL High 70-100 Blood [...] mg/dL Normal 8.8-10.2 CBC With Differential 04/14/2021 [facility] Main Lab [address] [place] [address] [phone] White Blood Count 4.9 10 Normal 4.0-10.0 [...] 36.0-66.0 Lymph % 12.5 % Low 24.0-44.0 [place] % 1.6 % Low 2.0-8.0 Eos % 0.0 % Normal 0.0-3.0 Baso % 0.4 % Normal 0.0-1.0 Immature Granulocyte % 0.4 % Normal 0-3.0 Nucleated Red Blood Cell % 0.0 % Normal 0-0 Neutrophils # 4.2 10 Normal 1.5-8.5 Lymph # 0.6 10 Low 1.5-5.0 [place] # 0.1 10 Normal 0.0-0.8 Eos # 0.0 10 Normal 0.0-0.5 Baso # 0.0 10 Normal 0.0-0.2 Prothrombin Time/Inr 04/14/2021 [facility] Main Lab [address] [place] [address] [phone] Prothrombin Time 14.7 seconds High 12.7-14.5 Inr 1.11 Normal 2 Laboratory test finding 04/14/2021 [facility] Main Lab [address] [place], [place] [id number] [phone] Partial Thromboplastin Time 42.2 seconds High 25 .9-37.0 3 Comprehensive Metabolic Profil 04/14/2021 [facility] Main Lab 0 [place], [place] [id number] [phone] Glucose, Fasting 135 mg/dL High 70-100 Blood [...] Ratio 0.8 Normal Laboratory test finding 04/14/2021 [facility] Main Lab 0 [place] [address] [phone] Pathology Request For Service (SEE NOTE) 5 FVL/[place] 11/26/2020 Lab42 PDFReport SEE IMAGE FVC-Pred 4.98 L FVC-Pre 3.29 L FVC-%Pred-Pre 66 L FVC-LLN 3.99 L Fev1-Pred 3.73 L Fev1-Pre 2.19 L Fev1-%Pred-Pre 58 L Fev1-LLN 2.89 L Fev6-Pred 4.74 L Fev6-Pre 3.25 L Fev6-%Pred-Pre 68 L Fev6-LLN 3.78 L Pmd5ruf-Mpht 75 % Ica7jjg-Thg 67 % Dlo6qaw-%Pred-Pre 89 % Lbg9gxy-UKB 65 % Ypj4oni-Zoox 95 % Cty7lzl-Ejh 99 % Pkw2auh-%Pred-Pre 103 % FEFMax-Pred 9.37 L/E/sec FEFMax-Pre 3.26 L/E/sec FEFMax-%Pred-Pre 34 L/E/sec FEFMax-LLN 6.91 L/E/sec Gfj7202-Wfvb 2.96 L/E/sec Dyx8389-Ifa 1.36 L/E/sec Hkk9023-%Pred-Pre 45 L/E/sec Sfb9766-MYZ 1.27 L/E/sec ExpTime-Pre 6.76 sec Cnf9dgt6-Luoz 78 % Iug7vkw6-Iiw 67 % Gdd1ctc3-%Pred-Pre 85 % Vtk2oeg8-EWY 69 % 1 Units are mL/min/1.73 m2 Chronic Kidney Disease Staging per NKF: Stage I & II GFR >=60 Normal to Mildly Decreased Stage III GFR 30-59 Moderately Decreased Stage IV GFR 15-29 Severely Decreased Stage V GFR <15 Very Little GFR Left ESRD GFR <15 on UNIT LEADER 2 THERAPUTIC HUMAN INR VALUES INDICATIONS NORMAL [...] Little GFR Left ESRD GFR <15 on UNIT LEADER 5 FINAL DIAGNOSIS Neck mass, excision: Benign [...] does not reveal any well-defined mass/lesion. Multiple representative phlebotomy services sections are submitted in ([id number]), (A5) contains representative phlebotomy services from the ad ditional mature adipose tissue fragments. - 04/14/2021 - 1506 Signed Virginia Alamo MD 04/15/2021 1322 Procedures Date Code Description Status 04/14/2021 57331 Excision Tumor, Soft Tissue, Nec k/Thorax, Subfacial, 5 CM Or > Completed 04/14/2021 50458 Excision Tumor, Soft Tissue, Nec k/Thorax, Subfacial, 5 CM Or > Completed 04/06/2021 98272 Office/Outpatient Established Mo d MDM 30-39 Min Completed 03/10/2021 16669 Office/Outpatient Established Lo w MDM 20-29 Min Completed 03/10/2021 95812 Laryngoscopy Flexible Fiberoptic Diagnostic Completed 02/26/2021 18024 Office/Outpatient New Moderate M DM 45-59 Minutes Completed 02/17/2021 02829 Office/Outpatient Established Lo w MDM 20-29 Min Completed 02/17/2021 64266 Laryngoscopy Flexible Fiberoptic Diagnostic Completed 12/17/2020 76009 Laparoscopy Surgical Closure Of Enterostomy, Large Or Small Intes Completed 12/17/2020 54685 Laparoscopy Surgical Closure Of Enterostomy, Large Or Small Intes Completed 12/17/2020 09300 Laparoscopy Surgical Mobilization Take Down Of Splenic Flexure Pe Completed 12/10/2020 98007 Laryngoscopy Flexible Fiberoptic Diagnostic Completed 11/26/2020 70039 Office/Outpatient Established Mo d MDM 30-39 Min Completed 11/26/2020 11173 Spirometry Completed 10/29/2020 14981 Laryngoscopy Flexible Fiberoptic Diagnostic Completed Medical Devices Description No Information Available Encounters Type Date Location Provider Dx Diagnosis Office Visit 04/06/2021 11:15a [facility] Plastic Surgery Chasidy Kellogg DO 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, subcu of head, face and neck Office Visit 03/10/2021 10:00a [facility] ENT Practice Baldomero Modi MD 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, subcu of head, 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 Office Visit 02/26/2021 11:00a [facility] Plastic Surgery Chasidy Kellogg, DO 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, subcu of head, face and neck L57.8 Oth skin 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 Office Visit 02/17/2021 9:15a [facility] ENT Practice Baldomero Modi MD C32.1 Malignant neoplasm of supraglottis D17.0 Prabhu lipomatous neoplm of ski n, subcu of head, face and neck Office Visit 02/05/2021 9:30a [facility] Surgery Practice Edu darrell Falcon MD Z93.3 Colostomy status K57.20 Dvtrcli of lg int w perforat ion and abscess w/o bleeding K59.00 Constipation, unspecified Z48.815 Encntr for surgical aftcr fo llowing surgery on the [facility] sys Office Visit 01/01/2021 10:00a [facility] Surgery Practice Ángel Falcon MD Z93.3 Colostomy status K57.20 Dvtrcli of lg int w perforat ion and abscess w/o bleeding K59.00 Constipation, unspecified Z48.815 Encntr for surgical aftcr fo llowing surgery on the [facility] sys Office Visit 12/23/2020 1:45p [facility] Surgery Practice ERIK Álvarez Z93.3 Colostomy status R11.2 Nausea with vomiting, unspec ified Office Visit 11/26/2020 9:00a [facility] Pulmonary/Thoracic Raven To wne, ANP G47.33 [...] Gastro-esophageal reflux disease without esophagitis Mirella Espinozatracy, [facility] 04/22/2021 R93.3 Abnormal findings on diagnostic imaging of other parts of digestive tract Mirella Espinozatracy, [facility]- 04/21/2021 L57.8 Other skin changes [...] 8:30 am - Chasidy Kellogg DO at [facility] Plastic Surgery * 06/15/2021 7:50 am - Umang Patel MD at [facility] ENT [facility] * 05/13/2021 8:30 am - TAM Brantley at [facility] Pulmonary/Thoracic 04/22/2021 - Mirella Corbett RPA-C* [...] Status Appt Date Murphy Hudson M.D. Closed [facility] [address] [facility], [address] [place] [address] [phone] Murphy Hudson M.D. DYSPHAGIA Scheduled 04/13 [facility] [address] [facility], [address] [address] [phone]
--- OUTSIDE RECORDS SUMMARY | 2021-06-08 08:17 | CCD ---
Continuity of Care Document (CCD) Created on: 04/29/2021 Foster Mishra External Reference #: [id number] : [id number] Sex: Male Author Author Foster KELLOGG DO Organization Unknown Address [address] [place] [address] Phone [phone] Care Team Providers Care Physicist Cryogenics Name Role Phone LavonageNazia R.N. AUTM [phone] [facility] Rehab AUTM [phone] Robert Falcon MD AUTM [phone] [facility] Records AUTM [phone] Chantal Schmid M.D. AUTM [phone] Chasidy Kellogg D.O. AUTM [phone] Timmy Burns M.D. AUTM [phone] AUTM Unavailable Baldomero Modi M.D. AUTM [phone] Problems Active Problems Provider Date Obstructive sleep [...] lb BMI (Body Mass Index) 30.9 kg/m2 [place] Body Weight 178 lb Weight 103.421 kg BSA (Body Surface Area) 2.25 m2 04/21/2021 8:56am Height 72 inches 6'0" Weight 235.00 lb BMI (Body Mass Index) 31.9 kg/m2 [place] Body Weight 178 lb Weight 106.596 kg BSA (Body Surface Area) 2.28 m2 Results Test Acquired Date Facility Test Result H/L Range Note Complete Blood Count 04/15/2021 [facility] Main Lab [address] [place], [place] [id number] [phone] White Blood Count 8.4 10 Normal 4.0-10.0 [...] % Normal 0-0 Basic Metabolic Profile 04/15/2021 [facility] Main Lab [address] [place], [place] [id number] [phone] Glucose, Fasting 151 mg/dL High 70-100 Blood [...] mg/dL Normal 8.8-10.2 CBC With Differential 04/14/2021 [facility] Main Lab [address] [place] [address] [phone] White Blood Count 4.9 10 Normal 4.0-10.0 [...] 36.0-66.0 Lymph % 12.5 % Low 24.0-44.0 Ida % 1.6 % Low 2.0-8.0 Eos % 0.0 % Normal 0.0-3.0 Baso % 0.4 % Normal 0.0-1.0 Immature Granulocyte % 0.4 % Normal 0-3.0 Nucleated Red Blood Cell % 0.0 % Normal 0-0 Neutrophils # 4.2 10 Normal 1.5-8.5 Lymph # 0.6 10 Low 1.5-5.0 Ida # 0.1 10 Normal 0.0-0.8 Eos # 0.0 10 Normal 0.0-0.5 Baso # 0.0 10 Normal 0.0-0.2 Prothrombin Time/Inr 04/14/2021 [facility] Main Lab [address] [place] [address] [phone] Prothrombin Time 14.7 seconds High 12.7-14.5 Inr 1.11 Normal 2 Laboratory test finding 04/14/2021 [facility] Main Lab [address] [place], [place] [id number] [phone] Partial Thromboplastin Time 42.2 seconds High 25 .9-37.0 3 Comprehensive Metabolic Profil 04/14/2021 [facility] Main Lab [address] [place], [place] [address] [phone] Glucose, Fasting 135 mg/dL High 70-100 Blood [...] Ratio 0.8 Normal Laboratory test finding 04/14/2021 [facility] Main Lab [address] [place] [address] [phone] Pathology Request For Service (SEE NOTE) 5 FVL/[place] 11/26/2020 [place] SEE IMAGE FVC-Pred 4.98 L FVC-Pre 3.29 L FVC-%Pred-Pre 66 L FVC-LLN 3.99 L Fev1-Pred 3.73 L Fev1-Pre 2.19 L Fev1-%Pred-Pre 58 L Fev1-LLN 2.89 L Fev6-Pred 4.74 L Fev6-Pre 3.25 L Fev6-%Pred-Pre 68 L Fev6-LLN 3.78 L Bpm9mqn-Kwjl 75 % Avy6unv-Uej 67 % Uoa0mys-%Pred-Pre 89 % Fdv6jkn-LJL 65 % Cge4dfb-Jaaj 95 % Efp9rmr-Nkf 99 % Soq1zlo-%Pred-Pre 103 % FEFMax-Pred 9.37 L/E/sec FEFMax-Pre 3.26 L/E/sec FEFMax-%Pred-Pre 34 L/E/sec FEFMax-LLN 6.91 L/E/sec Iwo5699-Rndb 2.96 L/E/sec Tzk4035-Ozt 1.36 L/E/sec Uqa9888-%Pred-Pre 45 L/E/sec Jmg3095-NOZ 1.27 L/E/sec ExpTime-Pre 6.76 sec Fnl7shm0-Ioey 78 % Mfh3vvg4-Ktc 67 % Brh7iqa4-%Pred-Pre 85 % Aye9yvb8-URM 69 % 1 Units are mL/min/1.73 m2 Chronic Kidney Disease Staging per NKF: Stage I & II GFR >=60 Normal to Mildly Decreased Stage III GFR 30-59 Moderately Decreased Stage IV GFR 15-29 Severely Decreased Stage V GFR <15 Very Little GFR Left ESRD GFR <15 on CONTROL CHEMIST 2 THERAPUTIC HUMAN INR VALUES INDICATIONS NORMAL [...] Little GFR Left ESRD GFR <15 on CONTROL CHEMIST 5 FINAL DIAGNOSIS Neck mass, excision: Benign [...] does not reveal any well-defined mass/lesion. Multiple patient registration representative sections are submitted in (A1-A4), (A5) contains patient registration representative from the ad ditional mature adipose tissue fragments. - 04/14/2021 - 1506 Signed Virginia Alamo MD 04/15/2021 1322 Procedures Date Code Description Status 04/14/2021 59071 Excision Tumor, Soft Tissue, Nec k/Thorax, Subfacial, 5 CM Or > Completed 04/14/2021 98922 Excision Tumor, Soft Tissue, Nec k/Thorax, Subfacial, 5 CM Or > Completed 04/06/2021 69452 Office/Outpatient Established Mo d MDM 30-39 Min Completed 03/10/2021 71554 Office/Outpatient Established Lo w MDM 20-29 Min Completed 03/10/2021 21937 Laryngoscopy Flexible Fiberoptic Diagnostic Completed 02/26/2021 60887 Office/Outpatient New Moderate M DM 45-59 Minutes Completed 02/17/2021 21307 Office/Outpatient Established Lo w MDM 20-29 Min Completed 02/17/2021 44698 Laryngoscopy Flexible Fiberoptic Diagnostic Completed 12/17/2020 05592 Laparoscopy Surgical Closure Of Enterostomy, Large Or Small Intes Completed 12/17/2020 84118 Laparoscopy Surgical Closure Of Enterostomy, Large Or Small Intes Completed 12/17/2020 84382 Laparoscopy Surgical Mobilization Take Down Of Splenic Flexure Pe Completed 12/10/2020 52160 Laryngoscopy Flexible Fiberoptic Diagnostic Completed 11/26/2020 98398 Office/Outpatient Established Mo d MDM 30-39 Min Completed 11/26/2020 22539 Spirometry Completed 10/29/2020 88880 Laryngoscopy Flexible Fiberoptic Diagnostic Completed Medical Devices Description No Information Available Encounters Type Date Location Provider Dx Diagnosis Office Visit 04/06/2021 11:15a [facility] Plastic Surgery Chasidy Kellogg DO 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, subcu of head, face and neck Office Visit 03/10/2021 10:00a [facility] ENT Practice Baldomero Modi MD 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, subcu of head, 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 Office Visit 02/26/2021 11:00a [facility] Plastic Surgery Chasidy Kellogg, DO 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, subcu of head, face and neck 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 Oth skin 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 Office Visit 02/17/2021 9:15a [facility] ENT Practice Baldomero Modi MD C32.1 Malignant neoplasm of supraglottis D17.0 Prabhu lipomatous neoplm of ski n, subcu of head, face and neck Office Visit 02/05/2021 9:30a [facility] Surgery Practice Edu darrell Falcon MD Z93.3 Colostomy status K57.20 Dvtrcli of lg int w perforat ion and abscess w/o bleeding K59.00 Constipation, unspecified Z48.815 Encntr for surgical aftcr fo llowing surgery on the [facility] sys Office Visit 01/01/2021 10:00a [facility] Surgery Practice Ángel Falcon MD Z93.3 Colostomy status K57.20 Dvtrcli of lg int w perforat ion and abscess w/o bleeding K59.00 Constipation, unspecified Z48.815 Encntr for surgical aftcr fo llowing surgery on the [facility] sys Office Visit 12/23/2020 1:45p [facility] Surgery Practice ERIK Álvarez Z93.3 Colostomy status R11.2 Nausea with vomiting, unspec ified Office Visit 11/26/2020 9:00a [facility] Pulmonary/Thoracic Raven To wne, ANP G47.33 [...] Gastro-esophageal reflux disease without esophagitis Mirella Espinozatracy, [facility] 04/22/2021 R93.3 Abnormal findings on diagnostic imaging of other parts of digestive tract Mirella Espinozatracy, [facility]- 04/21/2021 L57.8 Other skin changes d ue [...] 8:30 am - Chasidy Kellogg DO at [facility] Plastic Surgery * 06/15/2021 7:50 am - Umang Patel MD at [facility] ENT Practice * 05/13/2021 8:30 am - TAM Brantley at [facility] Pulmonary/Thoracic 04/22/2021 - Mirella Corbett RPA-C* [...] Status Appt Date Murphy Hudson M.D. Closed [facility] [address] [facility], [address] [place] [id number] [phone] Murphy Hudson M.D. DYSPHAGIA Scheduled 04/13 [facility] [address] [facility], [address] [address] [phone]
--- OUTSIDE RECORDS SUMMARY | 2021-06-08 08:17 | CCD | Continuity of Care Document ---
Author Author Foster LANGE MD Organization Unknown Address [address] [place] [address] [address] [place] [address] Phone [phone] Care Team Providers Care Mission Assessment Specialist Name Role Phone Nazia Blum R.N. AUTM [phone] [facility] Rehab AUTM [phone] Robert Lange MD AUTM [phone] [facility] Records AUTM [phone] Chantal Schmid M.D. AUTM [phone] Chasidy Reynoso D.O. AUTM [phone] Timmy Burns M.D. AUTM [phone] AUTM Unavailable Baldomero Modi M.D. AUTM [phone] Problems Active Problems Provider Date Obstructive sleep [...] 6 hours as needed nausea 30tabs Robert Lange MD - 02/04/2021 Flagyl 500mg Tablets 1 tab by mouth @ 2p & 10p day before surg 1 tab by mouth @ 6am morning of surg 3tabs Robert Lange MD 12/10/2020 - 12/22/2020 Neomycin Sulfate 500mg Tablets 2 by mouth @ 2 & 10p day before surgery, 2 by mouth @ 6am morning of surgery 6tabs Robert Lange MD 12/10/2020 - 12/22/2020 Suprep Bowel Prep Kit 17.5-3.13-1.6GM/177ML Solution take per doctor's bowel prep instructions. 354ml Robert Lange MD 12/10/2020 - 12/22/2020 Medications Administered in [...] lb BMI (Body Mass Index) 30.9 kg/m2 [place] Body Weight 178 lb Weight 103.421 kg BSA (Body Surface Area) 2.25 m2 04/21/2021 8:56am Height 72 inches 6'0" Weight 235.00 lb BMI (Body Mass Index) 31.9 kg/m2 [place] Body Weight 178 lb Weight 106.596 kg BSA (Body Surface Area) 2.28 m2 Results Test Acquired Date Facility Test Result H/L Range Note Complete Blood Count [facility] 0 [place], [place] [id number] [phone] White Blood Count 8.4 10 Normal 4.0-10.0 [...] % Normal 0-0 Basic Metabolic Profile 04/15/2021 [facility] Main Lab [address] [place], [place] [id number] [phone] Glucose, Fasting 151 mg/dL High 70-100 Blood [...] mg/dL Normal 8.8-10.2 CBC With Differential 04/14/2021 [facility] Main Lab [address] [place] [address] [phone] White Blood Count 4.9 10 Normal 4.0-10.0 [...] 36.0-66.0 Lymph % 12.5 % Low 24.0-44.0 Richardson % 1.6 % Low 2.0-8.0 Eos % 0.0 % Normal 0.0-3.0 Baso % 0.4 % Normal 0.0-1.0 Immature Granulocyte % 0.4 % Normal 0-3.0 Nucleated Red Blood Cell % 0.0 % Normal 0-0 Neutrophils # 4.2 10 Normal 1.5-8.5 Lymph # 0.6 10 Low 1.5-5.0 Richardson # 0.1 10 Normal 0.0-0.8 Eos # 0.0 10 Normal 0.0-0.5 Baso # 0.0 10 Normal 0.0-0.2 Prothrombin Time/Inr 04/14/2021 [facility] Main Lab [address] [place] [address] [phone] Prothrombin Time 14.7 seconds High 12.7-14.5 Inr 1.11 Normal 2 Laboratory test finding 04/14/2021 [facility] Main Lab [address] [place] [address] [phone] Partial Thromboplastin Time 42.2 seconds High 25 .9-37.0 3 Comprehensive Metabolic Profil 04/14/2021 [facility] Main Lab [address] [place], [place] [id number] [phone] Glucose, Fasting 135 mg/dL High 70-100 Blood [...] Ratio 0.8 Normal Laboratory test finding 04/14/2021 [facility] Main Lab [address] [place], [place] [address] [phone] Pathology Request For Service (SEE NOTE) 5 FVL/[place] 11/26/2020 [facility] PD[facility]ep[facility] SEE IMAGE FVC-Pred 4.98 L FVC-Pre 3.29 L FVC-%Pred-Pre 66 L FVC-LLN 3.99 L Fev1-Pred 3.73 L Fev1-Pre 2.19 L Fev1-%Pred-Pre 58 L Fev1-LLN 2.89 L Fev6-Pred 4.74 L Fev6-Pre 3.25 L Fev6-%Pred-Pre 68 L Fev6-LLN 3.78 L Mwa3opg-Jkpg 75 % Qjw9voq-Eec 67 % Qdy6pts-%Pred-Pre 89 % Ujw4nzg-YIZ 65 % Mhx5ltx-Bnur 95 % Vsj4iil-Qzo 99 % Ejo7fng-%Pred-Pre 103 % FEFMax-Pred 9.37 L/E/sec FEFMax-Pre 3.26 L/E/sec FEFMax-%Pred-Pre 34 L/E/sec FEFMax-LLN 6.91 L/E/sec Cqb4488-Poox 2.96 L/E/sec Zap6454-Uom 1.36 L/E/sec Ozp3981-%Pred-Pre 45 L/E/sec Skv8262-ZQE 1.27 L/E/sec ExpTime-Pre 6.76 sec Cts1voq5-Iive 78 % Riq7hjx7-Xlk 67 % Haj6jea1-%Pred-Pre 85 % Wnx7iub6-SWF 69 % 1 Units are mL/min/1.73 m2 Chronic Kidney Disease Staging per NKF: Stage I & II GFR >=60 Normal to Mildly Decreased Stage III GFR 30-59 Moderately Decreased Stage IV GFR 15-29 Severely Decreased Stage V GFR <15 Very Little GFR Left ESRD GFR <15 on WELL SITE DRILLING ENGINEER 2 THERAPUTIC HUMAN INR VALUES INDICATIONS NORMAL [...] Little GFR Left ESRD GFR <15 on WELL SITE DRILLING ENGINEER 5 FINAL DIAGNOSIS Neck mass, excision: Benign [...] does not reveal any well-defined mass/lesion. Multiple instruments sales representative sections are submitted in (A1-A4), (A5) contains instruments sales representative from the ad ditional mature adipose tissue fragments. - 04/14/2021 - 1506 Signed Virginia Alamo MD 04/15/2021 1322 Procedures Date Code Description Status 04/14/2021 62917 Excision Tumor, Soft Tissue, Nec k/Thorax, Subfacial, 5 CM Or > Completed 04/06/2021 13030 Office/Outpatient Established Mo d MDM 30-39 Min Completed 03/10/2021 73116 Office/Outpatient Established Lo w MDM 20-29 Min Completed 03/10/2021 47593 Laryngoscopy Flexible Fiberoptic Diagnostic Completed 02/26/2021 33241 Office/Outpatient New Moderate M DM 45-59 Minutes Completed 02/17/2021 09495 Office/Outpatient Established Lo w MDM 20-29 Min Completed 02/17/2021 27128 Laryngoscopy Flexible Fiberoptic Diagnostic Completed 12/17/2020 61464 Laparoscopy Surgical Closure Of Enterostomy, Large Or Small Intes Completed 12/17/2020 92869 Laparoscopy Surgical Closure Of Enterostomy, Large Or Small Intes Completed 12/17/2020 59922 Laparoscopy Surgical Mobilization Take Down Of Splenic Flexure Pe Completed 12/10/2020 79200 Laryngoscopy Flexible Fiberoptic Diagnostic Completed 11/26/2020 06253 Office/Outpatient Established Mo d MDM 30-39 Min Completed 11/26/2020 53781 Spirometry Completed 10/29/2020 99045 Laryngoscopy Flexible Fiberoptic Diagnostic Completed Medical Devices Description No Information Available Encounters Type Date Location Provider Dx Diagnosis Office Visit 04/06/2021 11:15a [facility] Plastic Surgery Chasidy Reynoso DO 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, subcu of head, face and neck Office Visit 03/10/2021 10:00a [facility] ENT Practice Baldomero Modi MD 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, subcu of head, 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 Office Visit 02/26/2021 11:00a [facility] Plastic Surgery Chasidy [place], DO 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, subcu of head, face and neck 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 skin 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 Office Visit 02/17/2021 9:15a [facility] ENT Practice Baldomero Modi MD C32.1 Malignant neoplasm of supraglottis D17.0 Prabhu lipomatous neoplm of ski n, subcu of head, face and neck Office Visit 01/01/2021 10:00a [facility] Surgery Practice Ángel Lange MD Z93.3 Colostomy status K57.20 Dvtrcli of lg int w perforat ion and abscess w/o bleeding K59.00 Constipation, unspecified Z48.815 Encntr for surgical aftcr fo llowing surgery on the dgstv sys Office Visit 12/23/2020 1:45p [facility] Surgery Practice ERIK Álvarez Z93.3 Colostomy status R11.2 Nausea with vomiting, unspec ified Office Visit 11/26/2020 9:00a [facility] Pulmonary/Thoracic Raven To wne, ANP G47.33 [...] to nonionizing radiation Chasidy [place], DO 04/14/2021 R22.2 Localized swelling, mass and [...] with perforation and abscess without bleeding Robert Lange MD 02/05/2021 K59.00 Constipation Robert zheng MD 01/01/2021 Z93.3 Colostomy status Robert turk MD 01/01/2021 K57.20 Diverticulitis of la rge intestine with perforation and abscess without bleeding Robert Lange MD 01/01/2021 K59.00 Constipation Robert zheng MD 01/01/2021 Z48.815 Encounter for surgic al aftercare following surgery on the digestive system Robert Lange MD 12/23/2020 Z93.3 Colostomy status ERIK Burleson 12/23/2020 R11.2 Nausea with vomiting, unspecifie d ERIK Burleson 12/17/2020 Z43.3 Encounter for attention to colos gordon Jeremy Schneider JR, MD 12/17/2020 K57.30 Diverticulosis of la rge intestine without perforation or abscess without bleeding Jeremy Schneider JR, MD 12/17/2020 Z43.3 Encounter for attention to colos gordon Robert Lange MD 12/17/2020 K57.30 Diverticulosis of la rge intestine without perforation or abscess without bleeding Robert Lange MD 12/10/2020 C32.1 Malignant neoplasm of supraglott [...] 8:30 am - Chasidy Reynoso DO at [facility] Plastic Surgery * 06/15/2021 7:50 am - Umang Patel MD at [facility] ENT Practice * 05/13/2021 8:30 am - TAM Brantley at [facility] Pulmonary/Thoracic 04/22/2021 - Mirella Corbett RPA-C* [...] Status Appt Date Murphy Hudson M.D. Closed [address] [id number] [phone] Murphy Hudson M.D. DYSPHAGIA Scheduled 04/[address] [id number] [phone]
--- OUTSIDE RECORDS SUMMARY | 2021-06-08 08:17 | CCD | Continuity of Care Document ---
Author Author Foster LANGE MD Organization Unknown Address [address] [place] [address] [address] [place] [address] Phone [phone] Care Team Providers Care Digester Hand Name Role Phone Nazia Blum R.N. AUTM [phone] [facility] Rehab AUTM [phone] Robert Lange MD AUTM [phone] [facility] Records AUTM [phone] Chantal Schmid M.D. AUTM [phone] Chasidy Reynoso D.O. AUTM [phone] Timmy Burns M.D. AUTM [phone] AUTM Unavailable Baldomero Modi M.D. AUTM [phone] Problems Active Problems Provider Date Obstructive sleep [...] lb BMI (Body Mass Index) 30.9 kg/m2 [place] Body Weight 178 lb Weight 103.421 kg BSA (Body Surface Area) 2.25 m2 04/21/2021 8:56am Height 72 inches 6'0" Weight 235.00 lb BMI (Body Mass Index) 31.9 kg/m2 [place] Body Weight 178 lb Weight 106.596 kg BSA (Body Surface Area) 2.28 m2 Results Test Acquired Date Facility Test Result H/L Range Note Complete Blood Count 04/15/2021 [facility] Main Lab [address] [place], [place] [id number] [phone] White Blood Count 8.4 10 Normal 4.0-10.0 [...] % Normal 0-0 Basic Metabolic Profile 04/15/2021 [facility] Main Lab [address] [place], [place] [id number] [phone] Glucose, Fasting 151 mg/dL High 70-100 Blood [...] mg/dL Normal 8.8-10.2 CBC With Differential 04/14/2021 [facility] Main Lab [address] [place] [address] [phone] White Blood Count 4.9 10 Normal 4.0-10.0 [...] 36.0-66.0 Lymph % 12.5 % Low 24.0-44.0 [place] % 1.6 % Low 2.0-8.0 Eos % 0.0 % Normal 0.0-3.0 Baso % 0.4 % Normal 0.0-1.0 Immature Granulocyte % 0.4 % Normal 0-3.0 Nucleated Red Blood Cell % 0.0 % Normal 0-0 Neutrophils # 4.2 10 Normal 1.5-8.5 Lymph # 0.6 10 Low 1.5-5.0 [place] # 0.1 10 Normal 0.0-0.8 Eos # 0.0 10 Normal 0.0-0.5 Baso # 0.0 10 Normal 0.0-0.2 Prothrombin Time/Inr 04/14/2021 [facility] Main Lab [address] [place] [address] [phone] Prothrombin Time 14.7 seconds High 12.7-14.5 Inr 1.11 Normal 2 Laboratory test finding 04/14/2021 [facility] Main Lab [address] [place] [address] [phone] Partial Thromboplastin Time 42.2 seconds High 25 .9-37.0 3 Comprehensive Metabolic Profil 04/14/2021 [facility] Main Lab [address] [place], [place] [id number] [phone] Glucose, Fasting 135 mg/dL High 70-100 Blood [...] Ratio 0.8 Normal Laboratory test finding 04/14/2021 [facility] Main Lab [address] [place], [place] [id number] [phone] Pathology Request For Service (SEE NOTE) 5 FVL/[place] 11/26/2020 [employer] PDFReport SEE IMAGE FVC-Pred 4.98 L FVC-Pre 3.29 L FVC-%Pred-Pre 66 L FVC-LLN 3.99 L Fev1-Pred 3.73 L Fev1-Pre 2.19 L Fev1-%Pred-Pre 58 L Fev1-LLN 2.89 L Fev6-Pred 4.74 L Fev6-Pre 3.25 L Fev6-%Pred-Pre 68 L Fev6-LLN 3.78 L Vvf0wov-Olqk 75 % Hnx7qvw-Jpm 67 % Xss2rus-%Pred-Pre 89 % Xzi7ydg-AGR 65 % Fad2xwl-Dzar 95 % Fsf0fms-Hps 99 % Pse2joj-%Pred-Pre 103 % FEFMax-Pred 9.37 L/E/sec FEFMax-Pre 3.26 L/E/sec FEFMax-%Pred-Pre 34 L/E/sec FEFMax-LLN 6.91 L/E/sec Abi6435-Lylk 2.96 L/E/sec Lpt6495-Stj 1.36 L/E/sec Wje7425-%Pred-Pre 45 L/E/sec Gzw5470-QFD 1.27 L/E/sec ExpTime-Pre 6.76 sec Jps9cto3-Wsms 78 % Uvr4lxd3-Wvd 67 % Rvu8sie4-%Pred-Pre 85 % Gzw3rhz8-EPE 69 % 1 Units are mL/min/1.73 m2 Chronic Kidney Disease Staging per NKF: Stage I & II GFR >=60 Normal to Mildly Decreased Stage III GFR 30-59 Moderately Decreased Stage IV GFR 15-29 Severely Decreased Stage V GFR <15 Very Little GFR Left ESRD GFR <15 on LINOLEUM FLOOR LAYER 2 THERAPUTIC HUMAN INR VALUES INDICATIONS NORMAL [...] Little GFR Left ESRD GFR <15 on LINOLEUM FLOOR LAYER 5 FINAL DIAGNOSIS Neck mass, excision: Benign [...] not reveal any well-defined mass/lesion. Multiple senior customer service representative sections are submitted in (A1-A4), (A5) contains senior customer service representative from the ad ditional mature adipose tissue fragments. - 04/14/2021 - 1506 Signed Virginia Alamo MD 04/15/2021 1322 Procedures Date Code Description Status 04/14/2021 72763 Excision Tumor, Soft Tissue, Nec k/Thorax, Subfacial, 5 CM Or > Completed 04/14/2021 54540 Excision Tumor, Soft Tissue, Nec k/Thorax, Subfacial, 5 CM Or > Completed 04/06/2021 68481 Office/Outpatient Established Mo d MDM 30-39 Min Completed 03/10/2021 08430 Office/Outpatient Established Lo w MDM 20-29 Min Completed 03/10/2021 93114 Laryngoscopy Flexible Fiberoptic Diagnostic Completed 02/26/2021 62289 Office/Outpatient New Moderate M DM 45-59 Minutes Completed 02/17/2021 81537 Office/Outpatient Established Lo w MDM 20-29 Min Completed 02/17/2021 01834 Laryngoscopy Flexible Fiberoptic Diagnostic Completed 12/17/2020 48129 Laparoscopy Surgical Closure Of Enterostomy, Large Or Small Intes Completed 12/17/2020 24572 Laparoscopy Surgical Closure Of Enterostomy, Large Or Small Intes Completed 12/17/2020 06473 Laparoscopy Surgical Mobilization Take Down Of Splenic Flexure Pe Completed 12/10/2020 05508 Laryngoscopy Flexible Fiberoptic Diagnostic Completed 11/26/2020 73542 Office/Outpatient Established Mo d MDM 30-39 Min Completed 11/26/2020 44423 Spirometry Completed 10/29/2020 43652 Laryngoscopy Flexible Fiberoptic Diagnostic Completed Medical Devices Description No Information Available Encounters Type Date Location Provider Dx Diagnosis Office Visit 04/06/2021 11:15a [facility] Plastic Surgery Chasidy Reynoso DO 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, subcu of head, face and neck Office Visit 03/10/2021 10:00a [facility] ENT Practice Baldomero Modi MD 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, subcu of head, 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 Office Visit 02/26/2021 11:00a [facility] Plastic Surgery Chasidy Reynoso, DO 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, subcu of head, face and neck L57.8 Oth skin 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 Office Visit 02/17/2021 9:15a [facility] ENT Practice Baldomero Modi MD C32.1 Malignant neoplasm of supraglottis D17.0 Prabhu lipomatous neoplm of ski n, subcu of head, face and neck Office Visit 02/05/2021 9:30a [facility] Surgery Practice Edu darrell Lange MD Z93.3 Colostomy status K57.20 Dvtrcli of lg int w perforat ion and abscess w/o bleeding K59.00 Constipation, unspecified Z48.815 Encntr for surgical aftcr fo llowing surgery on the [facility] Office Visit 01/01/2021 10:00a [facility] Surgery Practice Ángel Lange MD Z93.3 Colostomy status K57.20 Dvtrcli of lg int w perforat ion and abscess w/o bleeding K59.00 Constipation, unspecified Z48.815 Encntr for surgical aftcr fo llowing surgery on the [facility] sys Office Visit 12/23/2020 1:45p [facility] Surgery Practice ERIK Álvarez Z93.3 Colostomy status R11.2 Nausea with vomiting, unspec ified Office Visit 11/26/2020 9:00a [facility] Pulmonary/Thoracic Raven To wne, ANP G47.33 Obstructive sleep apnea (adult) (pediatr ic) J44.9 Chronic obstructive pulmonar y disease, unspecified Z87.891 Personal history of nicotine dependence Assessments Date Code Description Provider 04/22/2021 R13.10 Dysphagia, unspecified Chasidy garcia, DO 04/22/2021 L57.8 Other skin changes d ue to chronic exposure to nonionizing radiation Chasidy Reynoso, DO 04/22/2021 R13.10 Dysphagia, unspecified Mirelal A Chelle, RPA-C 04/22/2021 D17.0 Benign lipomatous ne oplasm of skin and subcutaneous tissue of head, face and neck Chasidy Angeles, DO 04/22/2021 Z48.817 Encounter for surgic al aftercare following surgery on the skin and subcutaneous tissue Chasidy Angeles, DO 04/22/2021 K21.9 Gastro-esophageal reflux disease without esophagitis Mirella Espinozatracy, [facility] 04/22/2021 R93.3 Abnormal findings on diagnostic imaging of other parts of digestive tract Mirella Gomesaquiles, [facility]- 04/21/2021 L57.8 Other skin changes d [...] on the digestive system Robert Lange MD 01/01/2021 Z93.3 Colostomy status Robert turk [...] - Chasidy Reynoso DO at [facility] Plastic Surgery * 06/15/2021 7:50 am - Umang Patel MD at [facility] ENT Practice * 05/13/2021 8:30 am - TAM Brantley at [facility] Pulmonary/Thoracic 04/22/2021 - Mirella Corbett RPA-C* [...] Status Appt Date Murphy Hudson M.D. Closed [facility] [address] [facility], [address] [id number] [phone] Murphy Hudson M.D. DYSPHAGIA [facility]uled 04[facility]13 [facility], [address] [id number] [phone]
--- OUTSIDE RECORDS SUMMARY | 2021-06-08 08:17 | CCD | Continuity of Care Document ---
Author Author Foster KELLOGG DO Organization Unknown Address [address] [place] [address] Phone [phone] Care Team Providers Care Director Of Marketing Name Role Phone LavonageNazia R.N. AUTM [phone] [facility] Rehab AUTM [phone] Robert Falcon MD AUTM [phone] [facility] Records AUTM [phone] Chantal Schmid M.D. AUTM [phone] Chasidy Kellogg D.O. AUTM [phone] Timmy Burns M.D. AUTM [phone] AUTM Unavailable Baldomero Modi M.D. AUTM [phone] Problems Active Problems Provider Date Obstructive sleep apnea syndrome TAM Brantley Onset: 01/30/2020 Dyspnea TAM Brantley Onset: 10/02/2020 Chronic obstructive lung disease TAM Brantley Onset: 10/02/2020 Ex-smoker TAM Brantley Onset: 10/02/2020 Social History Type Date Description Comments Sex Unknown ETOH Use Sociable Recreational Drug Use Denies Drug Use Tobacco [...] 15 mls. once a day . (constipation) 1892ml K59.00 Robert Falcon MD 01/09/2021 Qvar Redihaler 80mcg/Act Aerosol inhale [...] mouth every 4 hours prn pain Unknown Amlodipine Besylate 5mg Tablets 1 tab by mouth every day Unknown Esomeprazole Magnesium 40mg Capsul es DR 1 by mouth every day Unknown Prilosec OTC 20mg Tablets DR 1 tab by mouth every day 60tabs Unknown Aspirin [address] 1 tab by mouth every day Unknown Ventolin HFA 108(90Base) mcg/Act A erosol 2 puffs qid/prn Unknown Lipitor 20mg Tablets 1 by mouth every [...] Signs Date Vital Result Comment 04/22/2021 10:25am Body Temperature 97.9 F 04/21/2021 8:56am Height 72 inches 6'0" Weight 235.00 lb BMI (Body Mass Index) 31.9 kg/m2 [place] Body Weight 178 lb Weight 106.596 kg BSA (Body Surface Area) 2.28 m2 Results Test Acquired Date Facility Test Result H/L Range Note Complete Blood Count 04/15/2021 [facility] Main Lab [address] [place], [place] [id number] [phone] White Blood Count 8.4 10 Normal 4.0-10.0 [...] % Normal 0-0 Basic Metabolic Profile 04/15/2021 [facility] Main Lab [address] [place], [place] [address] [phone] Glucose, Fasting 151 mg/dL High 70-100 Blood [...] mg/dL Normal 8.8-10.2 CBC With Differential 04/14/2021 [facility] Main Lab [address] [place] [address] [phone] White Blood Count 4.9 10 Normal 4.0-10.0 [...] 36.0-66.0 Lymph % 12.5 % Low 24.0-44.0 [place] % 1.6 % Low 2.0-8.0 Eos % 0.0 % Normal 0.0-3.0 Baso % 0.4 % Normal 0.0-1.0 Immature Granulocyte % 0.4 % Normal 0-3.0 Nucleated Red Blood Cell % 0.0 % Normal 0-0 Neutrophils # 4.2 10 Normal 1.5-8.5 Lymph # 0.6 10 Low 1.5-5.0 [place] # 0.1 10 Normal 0.0-0.8 Eos # 0.0 10 Normal 0.0-0.5 Baso # 0.0 10 Normal 0.0-0.2 Prothrombin Time/Inr 04/14/2021 [facility] Main Lab [address] [place] [address] [phone] Prothrombin Time 14.7 seconds High 12.7-14.5 Inr 1.11 Normal 2 Laboratory test finding 04/14/2021 [facility] Main Lab [address] [place] [address] [phone] Partial Thromboplastin Time 42.2 seconds High 25 .9-37.0 3 Comprehensive Metabolic Profil 04/14/2021 [facility] Main Lab [address] [place], [place] [address] [phone] Glucose, Fasting 135 mg/dL High 70-100 Blood [...] Ratio 0.8 Normal Laboratory test finding 04/14/2021 [facility] Main Lab [address] [place], [place] [address] [phone] Pathology Request For Service (SEE NOTE) 5 FVL/[place] 11/26/2020 [employer] PDFReport SEE IMAGE FVC-Pred 4.98 L FVC-Pre 3.29 L FVC-%Pred-Pre 66 L FVC-LLN 3.99 L Fev1-Pred 3.73 L Fev1-Pre 2.19 L Fev1-%Pred-Pre 58 L Fev1-LLN 2.89 L Fev6-Pred 4.74 L Fev6-Pre 3.25 L Fev6-%Pred-Pre 68 L Fev6-LLN 3.78 L Vof1cwu-Pwvu 75 % Mtb6eif-Gak 67 % Shr3nre-%Pred-Pre 89 % Rjk8fth-RUL 65 % Ohu0cde-Gngn 95 % Bca8etk-Cvb 99 % Ieq1kye-%Pred-Pre 103 % FEFMax-Pred 9.37 L/E/sec FEFMax-Pre 3.26 L/E/sec FEFMax-%Pred-Pre 34 L/E/sec FEFMax-LLN 6.91 L/E/sec Vhv5155-Pukm 2.96 L/E/sec Gob5144-Prm 1.36 L/E/sec Jbg1233-%Pred-Pre 45 L/E/sec Jtt4850-GCO 1.27 L/E/sec ExpTime-Pre 6.76 sec Qob2gtm6-Banh 78 % Pok7hyj2-Zpo 67 % Ueq1woy5-%Pred-Pre 85 % Lmg3tnl6-KJY 69 % 1 Units are mL/min/1.73 m2 Chronic Kidney Disease Staging per NKF: Stage I & II GFR >=60 Normal to Mildly Decreased Stage III GFR 30-59 Moderately Decreased Stage IV GFR 15-29 Severely Decreased Stage V GFR <15 Very Little GFR Left ESRD GFR <15 on WIRE WORKER 2 THERAPUTIC HUMAN INR VALUES INDICATIONS [...] Little GFR Left ESRD GFR <15 on WIRE WORKER 5 FINAL DIAGNOSIS Neck mass, excision: [...] does not reveal any well-defined mass/lesion. Multiple contact center representative sections are submitted in (A1-A4), (A5) contains contact center representative from the ad ditional mature adipose tissue fragments. - 04/14/2021 - 1506 Signed Virginia Alaom MD 04/15/2021 1322 Procedures Date Code Description Status 04/14/2021 80299 Excision Tumor, Soft Tissue, Nec k/Thorax, Subfacial, 5 CM Or > Completed 04/06/2021 05119 Office/Outpatient Established Mo d MDM 30-39 Min Completed 03/10/2021 17810 Office/Outpatient Established Lo w MDM 20-29 Min Completed 03/10/2021 25624 Laryngoscopy Flexible Fiberoptic Diagnostic Completed 02/26/2021 15131 Office/Outpatient New Moderate M DM 45-59 Minutes Completed 02/17/2021 80747 Office/Outpatient Established Lo w MDM 20-29 Min Completed 02/17/2021 64445 Laryngoscopy Flexible Fiberoptic Diagnostic Completed 12/17/2020 97591 Laparoscopy Surgical Closure Of Enterostomy, Large Or Small Intes Completed 12/17/2020 74615 Laparoscopy Surgical Closure Of Enterostomy, Large Or Small Intes Completed 12/17/2020 82090 Laparoscopy Surgical Mobilization Take Down Of Splenic Flexure Pe Completed 12/10/2020 76474 Laryngoscopy Flexible Fiberoptic Diagnostic Completed 11/26/2020 35305 Office/Outpatient Established Mo d MDM 30-39 Min Completed 11/26/2020 08469 Spirometry Completed 10/29/2020 41268 Laryngoscopy Flexible Fiberoptic Diagnostic Completed 10/21/2020 35514 Office/Outpatient Established Lo w MDM 20-29 Min Completed Medical Devices Description No Information Available Encounters Type Date Location Provider Dx Diagnosis Office Visit 04/06/2021 11:15a [facility] Plastic Surgery Chasidy Kellogg DO 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, subcu of head, face and neck Office Visit 03/10/2021 10:00a [facility] ENT [facility] Baldomero Modi MD 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, subcu of head, 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 Office Visit 02/26/2021 11:00a [facility] Plastic Surgery Chasidy Kellogg DO 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, subcu of head, face and neck L57.8 Oth skin 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 Office Visit 02/17/2021 9:15a [facility] Baldomero Modi MD C32.1 Malignant neoplasm of supraglottis D17.0 Prabhu lipomatous neoplm of ski n, subcu of head, face and neck Office Visit 12/23/2020 1:45p [facility] Surgery [facility] ERIK Álvarez Z93.3 Colostomy status R11.2 Nausea with vomiting, unspec ified Office Visit 11/26/2020 9:00a [facility] Pulmonary/Thoracic Raven To wne, ANP G47.33 Obstructive sleep apnea (adult) (pediatr ic) J44.9 Chronic obstructive pulmonar y disease, unspecified Z87.891 Personal history of nicotine dependence Office Visit 10/21/2020 11:15a [facility] Ángel Falcon MD G47.33 Obstructive sleep apnea (aguilar lt) (pediatric) J44.9 Chronic obstructive pulmonar y disease, unspecified J37.0 Chronic laryngitis Z93.3 Colostomy status K57.20 Dvtrcli of lg int w perforat ion and abscess w/o bleeding Assessments Date Code Description Provider 04/21/2021 L57.8 Other skin changes d ue [...] head, face and neck Chasidy Kellogg, DO 02/26/2021 L57.8 Other skin changes d ue to chronic exposure to nonionizing radiation Chasidy Kellogg, DO 02/17/2021 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 Baldomero Modi MD 02/17/2021 D17.0 Benign lipomatous ne oplasm of skin and subcutaneous tissue of head, face and neck Baldomero Modi MD 12/23/2020 Z93.3 Colostomy status ERIK [place] [...] 11/26/2020 G47.33 Obstructive sleep apnea (adult) (pediatric) Raven Duncan, TAM 11/26/2020 J44.9 Chronic obstructive pulmonary di sease, unspecified Raven Duncan, TAM 11/26/2020 Z87.891 Personal history of nicotine dep endence Raven Duncan, ANP 11/25/2020 J44.9 Chronic obstructive pulmonary di sease, unspecified Raven Duncan, ANP 11/25/2020 G47.33 Obstructive sleep apnea (adult) (pediatric) TAM Brantley 10/29/2020 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 Baldomero Modi MD 10/21/2020 G47.33 Obstructive sleep apnea (adult) (pediatric) Robert Falcon MD 10/21/2020 J44.9 Chronic obstructive pulmonary di sease, unspecified Robetr Falcon MD 10/21/2020 J37.0 Chronic laryngitis Robert Nelson MD 10/21/2020 Z93.3 Colostomy status Robert turk MD 10/21/2020 K57.20 Diverticulitis of la rge intestine with perforation and abscess without bleeding Robert Falcon MD Plan of Treatment Future Appointment(s):* 06/15/2021 7:50 am - Umang Patel MD at [facility] * 05/13/2021 8:30 am - TAM Brantley at [facility] Pulmonary/Thoracic Functional Status Description No Information Available Mental Status Description No Information Available Referrals Refer to Reason for Referral Status Appt Date Murphy Hudson M.D. Closed [facility]-[address], [address] [address] [phone] Murphy Hudson M.D. DYSPHAGIA Scheduled 04/13 [facility]- [address] [place] [address], [address] [address] [phone]
--- OUTSIDE RECORDS SUMMARY | 2021-06-08 08:17 | CCD | Continuity of Care Document ---
Author Author Foster KELLOGG DO Organization Unknown Address [address] [place] [address] Phone [phone] Care Team Providers Care Credit Control Clerk Name Role Phone LavonageNazia R.N. AUTM [phone] [facility] Rehab AUTM [phone] Robert Falcon MD AUTM [phone] [facility] Records AUTM [phone] Chantal Schmid M.D. AUTM [phone] Chasidy Kellogg D.O. AUTM [phone] Timmy Burns M.D. AUTM [phone] AUTM Unavailable Baldomero Modi M.D. AUTM [phone] Problems Active Problems Provider Date Obstructive sleep [...] Available Vital Signs Date Vital Result Comment 04/21/2021 8:56am Height 72 inches 6'0" Weight 235.00 lb BMI (Body Mass Index) 31.9 kg/m2 [place] Body Weight 178 lb Weight 106.596 kg BSA (Body Surface Area) 2.28 m2 04/06/2021 11:23am BP Systolic 138 mmHg BP Diastolic 88 mmHg Heart Rate 88 /min Respiratory Rate 20 /min Height 72 inches 6'0" Weight 236.00 lb BMI (Body Mass Index) 32.0 kg/m2 [place] Body Weight 178 lb Weight 107.050 kg BSA (Body Surface Area) 2.29 m2 Results Test Acquired Date Facility Test Result H/L Range Note Complete Blood Count 04/15/2021 [facility] Main Lab [address], [place] [id number] [phone] White Blood Count 8.4 10 Normal 4.0-10.0 [...] % Normal 0-0 Basic Metabolic Profile 04/15/2021 [facility] Main Lab [address], [place] [id number] [phone] Glucose, Fasting 151 mg/dL High 70-100 Blood [...] With Differential 04/14/2021 [facility] Main Lab [address] [place] [address] [phone] White Blood Count 4.9 10 Normal 4.0-10.0 [...] 36.0-66.0 Lymph % 12.5 % Low 24.0-44.0 [place] % 1.6 % Low 2.0-8.0 Eos % 0.0 % Normal 0.0-3.0 Baso % 0.4 % Normal 0.0-1.0 Immature Granulocyte % 0.4 % Normal 0-3.0 Nucleated Red Blood Cell % 0.0 % Normal 0-0 Neutrophils # 4.2 10 Normal 1.5-8.5 Lymph # 0.6 10 Low 1.5-5.0 [place] # 0.1 10 Normal 0.0-0.8 Eos # 0.0 10 Normal 0.0-0.5 Baso # 0.0 10 Normal 0.0-0.2 Prothrombin Time/Inr 04/14/2021 [facility] enter Main Lab [address] [place] [address] [phone] Prothrombin Time 14.7 seconds High 12.7-14.5 Inr 1.11 Normal 2 Laboratory test finding 04/14/2021 [facility] Main Lab [address], [place] [address]67129 [phone] Partial Thromboplastin Time 42.2 seconds High 25 .9-37.0 3 Comprehensive Metabolic Profil 04/14/2021 [facility] Main Lab [address], [place] [id number] [phone] Glucose, Fasting 135 mg/dL High 70-100 Blood [...] Ratio 0.8 Normal Laboratory test finding 04/14/2021 [facility] Main Lab [address], [place] [id number] [phone] Pathology Request For Service (SEE NOTE) 5 FVL/Eleno 11/26/2020 Medgraphics PDFReport SEE IMAGE FVC-Pred 4.98 L FVC-Pre 3.29 L FVC-%Pred-Pre 66 L FVC-LLN 3.99 L Fev1-Pred 3.73 L Fev1-Pre 2.19 L Fev1-%Pred-Pre 58 L Fev1-LLN 2.89 L Fev6-Pred 4.74 L Fev6-Pre 3.25 L Fev6-%Pred-Pre 68 L Fev6-LLN 3.78 L Xvx9wua-Unvt 75 % Hqr0lko-Jyd 67 % Qhe0ano-%Pred-Pre 89 % Axe1hwx-AMR 65 % Zrp0jow-Yjie 95 % Qle9srp-Mwg 99 % Wlo7yos-%Pred-Pre 103 % FEFMax-Pred 9.37 L/E/sec FEFMax-Pre 3.26 L/E/sec FEFMax-%Pred-Pre 34 L/E/sec FEFMax-LLN 6.91 L/E/sec Dxj5118-Gxxj 2.96 L/E/sec Uxi5745-Fxk 1.36 L/E/sec Biq8889-%Pred-Pre 45 L/E/sec Tyf0933-PVZ 1.27 L/E/sec ExpTime-Pre 6.76 sec Jyu6qfh4-Yymz 78 % Dej0ofy7-Hhl 67 % Qtq7lys5-%Pred-Pre 85 % Xdi7otf7-XLD 69 % 1 Units are mL/min/1.73 m2 Chronic Kidney Disease Staging per NKF: Stage I & II GFR >=60 Normal to Mildly Decreased Stage III GFR 30-59 Moderately Decreased Stage IV GFR 15-29 Severely Decreased Stage V GFR <15 Very Little GFR Left ESRD GFR <15 on SUPERINTENDENT OPERATING 2 THERAPUTIC HUMAN INR VALUES INDICATIONS NORMAL [...] Little GFR Left ESRD GFR <15 on SUPERINTENDENT OPERATING 5 FINAL DIAGNOSIS Neck mass, excision: Benign [...] not reveal any well-defined mass/lesion. Multiple senior patient account representative sections are submitted in ([id number]), (A5) contains senior patient account representative from the ad ditional mature adipose tissue fragments. - 04/14/2021 - 1506 Signed Virginia Alamo MD 04/15/2021 1322 Procedures Date Code Description Status 04/14/2021 66728 Excision Tumor, Soft Tissue, Nec k/Thorax, Subfacial, 5 CM Or > Completed 04/06/2021 44154 Office/Outpatient Established Mo d MDM 30-39 Min Completed 03/10/2021 31826 Office/Outpatient Established Lo w MDM 20-29 Min Completed 03/10/2021 31153 Laryngoscopy Flexible Fiberoptic Diagnostic Completed 02/26/2021 85077 Office/Outpatient New Moderate M DM 45-59 Minutes Completed 02/17/2021 94489 Office/Outpatient Established Lo w MDM 20-29 Min Completed 02/17/2021 29489 Laryngoscopy Flexible Fiberoptic Diagnostic Completed 12/17/2020 42128 Laparoscopy Surgical Closure Of Enterostomy, Large Or Small Intes Completed 12/17/2020 13940 Laparoscopy Surgical Closure Of Enterostomy, Large Or Small Intes Completed 12/17/2020 70277 Laparoscopy Surgical Mobilization Take Down Of Splenic Flexure Pe Completed 12/10/2020 41814 Laryngoscopy Flexible Fiberoptic Diagnostic Completed 11/26/2020 09028 Office/Outpatient Established Mo d MDM 30-39 Min Completed 11/26/2020 74761 Spirometry Completed 10/29/2020 65135 Laryngoscopy Flexible Fiberoptic Diagnostic Completed Medical Devices Description No Information Available Encounters Type Date Location Provider Dx Diagnosis Office Visit 04/06/2021 11:15a [facility] Plastic Surgery Chasidy Kellogg DO 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, subcu of head, face and neck Office Visit 03/10/2021 10:00a [facility] ENT Practice Baldomero Modi MD 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, subcu of head, 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 Office Visit 02/26/2021 11:00a [facility] Plastic Surgery Chasidy Angeles, DO 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, subcu of head, face and neck L57.8 Oth skin 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 Office Visit 02/17/2021 9:15a [facility] ENT Practice Baldomero Modi MD C32.1 Malignant neoplasm of supraglottis D17.0 Prabhu lipomatous neoplm of ski n, subcu of head, face and neck Office Visit 12/23/2020 1:45p [facility] Surgery Practice ERIK Álvarez Z93.3 Colostomy status R11.2 Nausea with vomiting, unspec ified Office Visit 11/26/2020 9:00a [facility] Pulmonary/Thoracic Raven To wne, ANP G47.33 Obstructive sleep apnea (adult) (pediatr ic) J44.9 Chronic obstructive pulmonar y disease, unspecified Z87.891 Personal history of nicotine dependence Assessments Date Code Description Provider 04/21/2021 L57.8 [...] to chronic exposure to nonionizing radiation Chasidy Kellogg DO 02/17/2021 C32.1 Malignant neoplasm of supraglott [...] of nicotine dep endence Raven Duncan, TAM 11/25/2020 J44.9 Chronic obstructive pulmonary di sease, unspecified Raven Duncan, TAM 11/25/2020 G47.33 Obstructive sleep apnea (adult) (pediatric) TAM Brantley 10/29/2020 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 Baldomero Modi MD Plan of Treatment Future Appointment(s):* 06/15/2021 7:50 am - Umang Patel MD at [facility] ENT Practice * 04/22/2021 10:30 am - Chasidy Kellogg DO at [facility] Plastic Surgery * 05/13/2021 8:30 am - TAM Brantley at [facility] Pulmonary/Thoracic * 04/22/2021 2:30 pm - RHYS Zacarias at [facility] Gastroenterology [facility] Functional Status Description No Information Available Mental Status Description No Information Available Referrals Refer to Dr Reason for Referral Status Appt Date Murphy Hudson M.D. Closed [address], [address] [id number] [phone] Murphy Hudson M.D. DYSPHAGIA Scheduled 04/[address], [address] [address] [phone]
--- OUTSIDE RECORDS SUMMARY | 2021-06-08 08:18 | CCD | Continuity of Care Document ---
Author Author Foster MODI MD Organization Unknown Address [address] [place] [address] Phone [phone] Care Team Providers Care Survey Chief Name Role Phone Nazia Blum R.N. AUTM [phone] [facility] Rehab AUTM [phone] Robert Falcon MD AUTM [phone] [facility] Records AUTM [phone] Chantal Schmid M.D. AUTM [phone] Chasidy Reynoso D.O. AUTM [phone] Timmy Burns M.D. AUTM [phone] AUTM Unavailable Baldomero Modi M.D. AUTM [phone] Problems Active Problems Provider Date Obstructive sleep [...] mouth @ 6am morning of surg 3tabs oRbert Falcon MD 12/10/2020 - 12/22/2020 Neomycin Sulfate [...] lb BMI (Body Mass Index) 31.9 kg/m2 [place] Body Weight 178 lb Weight 106.596 kg BSA (Body Surface Area) 2.28 m2 04/06/2021 11:23am BP Systolic 138 mmHg BP Diastolic 88 mmHg Heart Rate 88 /min Respiratory Rate 20 /min Height 72 inches 6'0" Weight 236.00 lb BMI (Body Mass Index) 32.0 kg/m2 [place] Body Weight 178 lb Weight 107.050 kg BSA (Body Surface Area) 2.29 m2 Results Test Acquired Date Facility Test Result H/L Range Note Complete Blood Count 04/15/2021 [facility] Main Lab [address] [place] [address] [phone] White Blood Count 8.4 10 Normal 4.0-10.0 [...] % Normal 0-0 Basic Metabolic Profile 04/15/2021 [facility] Main Lab [address] [place] [address] [phone] Glucose, Fasting 151 mg/dL High 70-100 Blood [...] mg/dL Normal 8.8-10.2 CBC With Differential 04/14/2021 [facility] Main Lab [address] [place] [address] [phone] White Blood Count 4.9 10 Normal 4.0-10.0 [...] 36.0-66.0 Lymph % 12.5 % Low 24.0-44.0 [place] % 1.6 % Low 2.0-8.0 Eos % 0.0 % Normal 0.0-3.0 Baso % 0.4 % Normal 0.0-1.0 Immature Granulocyte % 0.4 % Normal 0-3.0 Nucleated Red Blood Cell % 0.0 % Normal 0-0 Neutrophils # 4.2 10 Normal 1.5-8.5 Lymph # 0.6 10 Low 1.5-5.0 [place] # 0.1 10 Normal 0.0-0.8 Eos # 0.0 10 Normal 0.0-0.5 Baso # 0.0 10 Normal 0.0-0.2 Prothrombin Time/Inr 04/14/2021 [facility] enter Main Lab [address] [place] [address] [phone] Prothrombin Time 14.7 seconds High 12.7-14.5 Inr 1.11 Normal 2 Laboratory test finding 04/14/2021 [facility] Main Lab [address] [place] [address] [phone] Partial Thromboplastin Time 42.2 seconds High 25 .9-37.0 3 Comprehensive Metabolic Profil 04/14/2021 [facility] Main Lab [address] [place] [address] [phone] Glucose, Fasting 135 mg/dL High 70-100 Blood [...] Ratio 0.8 Normal Laboratory test finding 04/14/2021 [facility] Main Lab [address] [place] [address] [phone] Pathology Request For Service (SEE NOTE) 5 FVL/Mar[place] 11/26/2020 Medgraphics PDFReport SEE IMAGE FVC-Pred 4.98 L FVC-Pre 3.29 L FVC-%Pred-Pre 66 L FVC-LLN 3.99 L Fev1-Pred 3.73 L Fev1-Pre 2.19 L Fev1-%Pred-Pre 58 L Fev1-LLN 2.89 L Fev6-Pred 4.74 L Fev6-Pre 3.25 L Fev6-%Pred-Pre 68 L Fev6-LLN 3.78 L Ocp9awm-Wymt 75 % Vzl0ixi-Jtr 67 % Bqb4ero-%Pred-Pre 89 % Dad3tta-ZAH 65 % Wtu5why-Jhoo 95 % Nja8eqj-Gex 99 % Htb4xqa-%Pred-Pre 103 % FEFMax-Pred 9.37 L/E/sec FEFMax-Pre 3.26 L/E/sec FEFMax-%Pred-Pre 34 L/E/sec FEFMax-LLN 6.91 L/E/sec Bwp3975-Jxif 2.96 L/E/sec Guo6501-Oep 1.36 L/E/sec Vaz0388-%Pred-Pre 45 L/E/sec Bko9685-JSQ 1.27 L/E/sec ExpTime-Pre 6.76 sec Gfe3klc5-Rvje 78 % Vig9cex0-Aau 67 % Mcy1pzi9-%Pred-Pre 85 % Qcn6swx4-KOI 69 % 1 Units are mL/min/1.73 m2 Chronic Kidney Disease Staging per NKF: Stage I & II GFR >=60 Normal to Mildly Decreased Stage III GFR 30-59 Moderately Decreased Stage IV GFR 15-29 Severely Decreased Stage V GFR <15 Very Little GFR Left ESRD GFR <15 on ENERGY PROFESSIONAL 2 THERAPUTIC HUMAN INR VALUES INDICATIONS NORMAL [...] Little GFR Left ESRD GFR <15 on ENERGY PROFESSIONAL 5 FINAL DIAGNOSIS Neck mass, excision: Benign [...] does not reveal any well-defined mass/lesion. Multiple c s s representative sections are submitted in ([id number]), (A5) contains c s s representative from the ad ditional mature adipose tissue fragments. - 04/14/2021 - 1506 Signed Virginia Alamo MD 04/15/2021 1322 Procedures Date Code Description Status 04/14/2021 61334 Excision Tumor, Soft Tissue, Nec k/Thorax, Subfacial, 5 CM Or > Completed 04/06/2021 29064 Office/Outpatient Established Mo d MDM 30-39 Min Completed 03/10/2021 60497 Office/Outpatient Established Lo w MDM 20-29 Min Completed 03/10/2021 97946 Laryngoscopy Flexible Fiberoptic Diagnostic Completed 02/26/2021 18043 Office/Outpatient New Moderate M DM 45-59 Minutes Completed 02/17/2021 66012 Office/Outpatient Established Lo w MDM 20-29 Min Completed 02/17/2021 18879 Laryngoscopy Flexible Fiberoptic Diagnostic Completed 12/17/2020 73939 Laparoscopy Surgical Closure Of Enterostomy, Large Or Small Intes Completed 12/17/2020 19515 Laparoscopy Surgical Closure Of Enterostomy, Large Or Small Intes Completed 12/17/2020 87611 Laparoscopy Surgical Mobilization Take Down Of Splenic Flexure Pe Completed 12/10/2020 65450 Laryngoscopy Flexible Fiberoptic Diagnostic Completed 11/26/2020 19362 Office/Outpatient Established Mo d MDM 30-39 Min Completed 11/26/2020 26405 Spirometry Completed 10/29/2020 07020 Laryngoscopy Flexible Fiberoptic Diagnostic Completed Medical Devices Description No Information Available Encounters Type Date Location Provider Dx Diagnosis Office Visit 04/06/2021 11:15a [facility] Plastic Surgery Chasidy Reynoso DO 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, subcu of head, face and neck Office Visit 03/10/2021 10:00a [facility] ENT Practice Baldomero Modi MD 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, subcu of head, 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 Office Visit 02/26/2021 11:00a [facility] Plastic Surgery Chasidy Angeles, DO 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, subcu of head, face and neck L57.8 Oth skin 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 Office Visit 02/17/2021 9:15a [facility] ENT Practice Baldomero Modi MD C32.1 Malignant neoplasm of supraglottis D17.0 Prabhu lipomatous neoplm of ski n, subcu of head, face and neck Office Visit 12/23/2020 1:45p [facility] Surgery Practice ERIK Álvarez Z93.3 Colostomy status R11.2 Nausea with vomiting, unspec ified Office Visit 11/26/2020 9:00a [facility] Pulmonary/Thoracic Raven To wne, ANP G47.33 Obstructive [...] exposure to nonionizing radiation Chasidy Reynoso DO 02/17/2021 C32.1 Malignant neoplasm of supraglott [...] Z43.3 Encounter for attention to colos gordon Falcon MD 12/17/2020 K57.30 Diverticulosis of la [...] MD at [facility] ENT Practice * 04/22/2021 10:30 am - Chasidy Reynoso DO at [facility] Plastic Surgery * 05/13/2021 8:30 am - TAM Brantley at [facility] Pulmonary/Thoracic * 04/22/2021 2:30 pm - RHYS Zacarias at [facility] Gastroenterology [facility] Functional Status Description No Information Available Mental Status Description No Information Available Referrals Refer to Reason for Referral Status Appt Date Murphy Hudson M.D. Closed [address], [address] [id number] [phone] Murphy Hudson M.D. DYSPHAGIA Scheduled 04/[address], [address] [address] [phone]
--- OUTSIDE RECORDS SUMMARY | 2021-06-08 08:20 | CCD ---
Author Author [facility] Organization [facility] Address Unknown Phone Unavailable Care Team Providers Care Teller Supervisor Name Role Phone Sophie Duncan SUMMER NANNY Unavailable Unavailable DakotaSophiedi SUMMER NANNY Unavailable Unavailable Dakota, L Raven SUMMER NANNY Unavailable Unavailable Dakota, L Raven SUMMER NANNY Unavailable Unavailable Dakota, L Raven SUMMER NANNY Unavailable Unavailable Dakota, L Raven SUMMER NANNY Unavailable Unavailable Dakota, L Raven SUMMER NANNY Unavailable Unavailable Dakota, L Raven SUMMER NANNY Unavailable Unavailable Dakota, L Raven SUMMER NANNY Unavailable Unavailable Dakota, L Raven SUMMER NANNY Unavailable Unavailable Dakota, L Raven SUMMER NANNY Unavailable Unavailable Dakota, L Raven SUMMER NANNY Unavailable Unavailable Dakota, L Raven SUMMER NANNY Unavailable Unavailable Dakota, L Raven SUMMER NANNY Unavailable Unavailable Dakota, L Raven SUMMER NANNY Unavailable Unavailable Dakota, L Raven SUMMER NANNY Unavailable Unavailable Dakota, L Raven SUMMER NANNY Unavailable Unavailable Dakota, L Raven SUMMER NANNY Unavailable Unavailable Dakota, L Ravne SUMMER NANNY Unavailable Unavailable Dakota, L Raven SUMMER NANNY Unavailable Unavailable Dakota, L Raven SUMMER NANNY Unavailable Unavailable Dakota, L Raven SUMMER NANNY Unavailable Unavailable Dakota, L Raven SUMMER NANNY Unavailable Unavailable Dakota, L Raven SUMMER NANNY Unavailable Unavailable Dakota, L Raven SUMMER NANNY Unavailable Unavailable Mai HERNANDEZ MD Unavailable Unavailable Mai HERNANDEZ MD Unavailable Unavailable Mai HERNANDEZ MD Unavailable Unavailable Mai HERNANDEZ MD Unavailable Unavailable Mai HERNANDEZ MD Unavailable Unavailable Mai HERNANDEZ MD Unavailable Unavailable Mai HERNANDEZ MD Unavailable Unavailable Mai HERNANDEZ MD Unavailable Unavailable Mai HERNANDEZ MD Unavailable Unavailable Mai HERNANDEZ MD Unavailable Unavailable Mai HERNANDEZ MD Unavailable Unavailable Mai HERNANDEZ MD Unavailable Unavailable Mai HERNANDEZ MD Unavailable Unavailable Mai HERNANDEZ MD Unavailable Unavailable Mai HERNANDEZ MD Unavailable Unavailable Mai HERNANDEZ MD Unavailable Unavailable Mai HERNANDEZ MD Unavailable Unavailable Mai HERNANDEZ MD Unavailable Unavailable Mai HERNANDEZ MD Unavailable Unavailable Mai HERNANDEZ MD Unavailable Unavailable Mai HERNANDEZ MD Unavailable Unavailable Mai HERNANDEZ MD Unavailable Unavailable Mai HERNANDEZ MD Unavailable Unavailable Mai HERNANDEZ MD Unavailable Unavailable Mai HERNANDEZ MD Unavailable Unavailable Mai HERNANDEZ MD Unavailable Unavailable Mai HERNANDEZ MD Unavailable Unavailable Mai HERNANDEZ MD Unavailable Unavailable Mai HERNANDEZ MD Unavailable Unavailable Mai HERNANDEZ MD Unavailable Unavailable Mai HERNANDEZ MD Unavailable Unavailable Mai HERNANDEZ MD Unavailable Unavailable Mai HERNANDEZ MD Unavailable Unavailable Mai HERNANDEZ MD Unavailable Unavailable Mai HERNANDEZ MD Unavailable Unavailable Mai HERNANDEZ MD Unavailable Unavailable Mai HERNANDEZ MD Unavailable Unavailable Mai HERNANDEZ MD Unavailable Unavailable Mai HERNANDEZ MD Unavailable Unavailable Mai EHRNANDEZ MD Unavailable Unavailable Mai HERNANDEZ MD Unavailable Unavailable Mai HERNANDEZ MD Unavailable Unavailable Mai HERNANDEZ MD Unavailable Unavailable Mai HERNANDEZ MD Unavailable Unavailable Mai HERNANDEZ MD Unavailable Unavailable Mai HERNANDEZ MD Unavailable Unavailable Mai HERNANDEZ MD Unavailable Unavailable Mai HERNANDEZ MD Unavailable Unavailable Mai HERNANDEZ MD Unavailable Unavailable Mai HERNANDEZ MD Unavailable Unavailable Mai HERNANDEZ MD Unavailable Unavailable Mai EHRNANDEZ MD Unavailable Unavailable Mai HERNANDEZ MD Unavailable Unavailable Mai HERNANDEZ MD Unavailable Unavailable JULIETTE, F JAYLEN MD Unavailable Unavailable JULIETTE, F JAYLEN MD Unavailable Unavailable JULIETTE, F JAYLEN MD Unavailable Unavailable JULIETTE, F JAYLEN MD Unavailable Unavailable JULIETTE, F JAYLEN MD Unavailable Unavailable JULIETTE, F JAYLEN MD Unavailable Unavailable JULIETTE, F JAYLEN MD Unavailable Unavailable JULIETTE, F JAYLEN MD Unavailable Unavailable JULIETTE, F JAYLEN MD Unavailable Unavailable JULIETTE, F JAYLEN MD Unavailable Unavailable JULIETTE, F JAYLEN MD Unavailable Unavailable JULIETTE, F JAYLEN MD Unavailable Unavailable JULIETTE, F JAYLEN MD Unavailable Unavailable JULIETTE, F JAYLEN MD Unavailable Unavailable JULIETTE, F JAYLEN MD Unavailable Unavailable JULIETTE, F JAYLEN MD Unavailable Unavailable JULIETTE, F JAYLEN MD Unavailable Unavailable JULIETTE, F JAYLEN MD Unavailable Unavailable JULIETTE, F JAYLEN MD Unavailable Unavailable JULIETTE, F JAYLEN MD Unavailable Unavailable JULIETTE, F JAYLEN MD Unavailable Unavailable JULIETTE, F JAYLEN MD Unavailable Unavailable JULIETTE, F JAYLEN MD Unavailable Unavailable JULIETTE, F JAYLEN MD Unavailable Unavailable JULIETTE, F JAYLEN MD Unavailable Unavailable JULIETTE, F JAYLEN MD Unavailable Unavailable JULIETTE, F JAYLEN MD Unavailable Unavailable JULIETTE, F JAYLEN MD Unavailable Unavailable JULIETTE, F JAYLEN MD Unavailable Unavailable JULIETTE, F JAYLEN MD Unavailable Unavailable JULIETTE, F JAYLEN MD Unavailable Unavailable JULIETTE, F JAYLEN MD Unavailable Unavailable JULIETTE, F JAYLEN MD Unavailable Unavailable JULIETTE, F JAYLEN MD Unavailable Unavailable JULIETTE, F JAYLEN MD Unavailable Unavailable Charlebois, A Mirella RPA C Unavailable Unavailable Charlebois, A Mirella RPA C Unavailable Unavailable Charlebois, A Mirella RPA C Unavailable Unavailable Charlebois, A Mirella RPA C Unavailable Unavailable Charlebois, A Mirella RPA C Unavailable Unavailable Charlebois, A Mirella RPA C Unavailable Unavailable Charlebois, A Mirella RPA C Unavailable Unavailable Charlebois, A Mirella RPA C Unavailable Unavailable Charlebois, A Mirella RPA C Unavailable Unavailable Charlebois, A Mirella RPA C Unavailable Unavailable Charlebois, A Mirella RPA C Unavailable Unavailable Charlebois, A Mirella RPA C Unavailable Unavailable Charlebois, A Mirella RPA C Unavailable Unavailable Charlebois, A Mirella RPA C Unavailable Unavailable Charlebois, A Mirella RPA C Unavailable Unavailable Charlebois, A Mirella RPA C Unavailable Unavailable Charlebois, A Mirella RPA C Unavailable Unavailable Charlebois, A Mirella RPA C Unavailable Unavailable Charlebois, A Mirella RPA C Unavailable Unavailable Charlebois, A Mirella RPA C Unavailable Unavailable Charlebois, A Mirella RPA C Unavailable Unavailable Charlebois, A Mirella RPA C Unavailable Unavailable Charlebois, A Mirella RPA C Unavailable Unavailable Charlebois, A Mirella RPA C Unavailable Unavailable Charlebois, A Mirella RPA C Unavailable Unavailable Charlebois, A Mirella RPA C Unavailable Unavailable Charlebois, A Mirella RPA C Unavailable Unavailable Charlebois, A Mirella RPA C Unavailable Unavailable Charlebois, A Mirella RPA C Unavailable Unavailable Charlebois, A Mirella RPA C Unavailable Unavailable Charlebois, A Mirella RPA C Unavailable Unavailable Charlebois, A Mirella RPA C Unavailable Unavailable Charlebois, A Mirella RPA C Unavailable Unavailable Alicea, M Amber SUMMER NANNY Unavailable Unavailable Alicea, M Amber SUMMER NANNY Unavailable Unavailable Alicea, M Amber SUMMER NANNY Unavailable Unavailable Alicea, M Amber SUMMER NANNY Unavailable Unavailable Alicea, M Amber SUMMER NANNY Unavailable Unavailable Alicea, M Amber SUMMER NANNY Unavailable Unavailable Alicea, M Amber SUMMER NANNY Unavailable Unavailable Alicea, M Ambre SUMMER NANNY Unavailable Unavailable Alicea, M Amber SUMMER NANNY Unavailable Unavailable Alicea, M Amber SUMMER NANNY Unavailable Unavailable Alicea, M Amber SUMMER NANNY Unavailable Unavailable Alicea, M Amber SUMMER NANNY Unavailable Unavailable Alciea, M Amber SUMMER NANNY Unavailable Unavailable Alicea, M Amber SUMMER NANNY Unavailable Unavailable Alicea, M Amber SUMMER NANNY Unavailable Unavailable Alicea, M Amber SUMMER NANNY Unavailable Unavailable Alicea, M Amber SUMMER NANNY Unavailable Unavailable Alicea, M Amber SUMMER NANNY Unavailable Unavailable Alicea, M Amber SUMMER NANNY Unavailable Unavailable Alicea, M Amber SUMMER NANNY Unavailable Unavailable Alicea, M Amber SUMMER NANNY Unavailable Unavailable Alicea, M Amber SUMMER NANNY Unavailable Unavailable Alicea, M Amber SUMMER NANNY Unavailable Unavailable Alicea, M Amber SUMMER NANNY Unavailable Unavailable Alicea, M Amber SUMMER NANNY Unavailable Unavailable Alicea, M Amber SUMMER NANNY Unavailable Unavailable Alicea, M Amber SUMMER NANNY Unavailable Unavailable BRYDEN, A SAIDA DO Unavailable Unavailable BRYDEN, A SAIDA DO Unavailable Unavailable BRYDEN, A SAIDA DO Unavailable Unavailable BRYDEN, A SAIDA DO Unavailable Unavailable BRYDEN, A SAIDA DO Unavailable Unavailable BRYDEN, A SAIDA DO Unavailable Unavailable BRYDEN, A SAIDA DO Unavailable Unavailable BRYDEN, A SAIDA DO Unavailable Unavailable BRYDEN, A SAIDA DO Unavailable Unavailable BRYDEN, A SAIDA DO Unavailable Unavailable BRYDEN, A SAIDA DO Unavailable Unavailable BRYDEN, A SAIDA DO Unavailable Unavailable BRYDEN, A SAIDA DO Unavailable Unavailable BRYDEN, A SAIDA DO Unavailable Unavailable BRYDEN, A SAIDA DO Unavailable Unavailable BRYDEN, A SAIDA DO Unavailable Unavailable BRYDEN, A SAIDA DO Unavailable Unavailable BRYDEN, A SAIDA DO Unavailable Unavailable BRYDEN, A SAIDA DO Unavailable Unavailable BRYDEN, A SAIDA DO Unavailable Unavailable BRYDEN, A SAIDA DO Unavailable Unavailable BRYDEN, A SAIDA DO Unavailable Unavailable BRYDEN, A SAIDA DO Unavailable Unavailable BRYDEN, A SAIDA DO Unavailable Unavailable BRYDEN, A SAIDA DO Unavailable Unavailable BRYDEN, A SAIDA DO Unavailable Unavailable BRYDEN, A SAIDA DO Unavailable Unavailable BRYDEN, A SAIDA DO Unavailable Unavailable BRYDEN, A SAIDA DO Unavailable Unavailable VALDEZ, E LEANA DO Unavailable Unavailable VALDEZ, E LEANA DO Unavailable Unavailable VALDEZ, E LEANA DO Unavailable Unavailable VALDEZ, E LEANA DO Unavailable Unavailable VALDEZ, E LEANA DO Unavailable Unavailable VALDEZ, E LEANA DO Unavailable Unavailable VALDEZ, E LEANA DO Unavailable Unavailable VALDEZ, E LEANA DO Unavailable Unavailable VALDEZ, E LEANA DO Unavailable Unavailable VALDEZ, E LEANA DO Unavailable Unavailable VALDEZ, E LEANA DO Unavailable Unavailable VALDEZ, E LEANA DO Unavailable Unavailable VALDEZ, E LEANA DO Unavailable Unavailable VALDEZ, E LEANA DO Unavailable Unavailable VALDEZ, E LEANA DO Unavailable Unavailable VALDEZ, E LEANA DO Unavailable Unavailable VALDEZ, E LEANA DO Unavailable Unavailable VALDEZ, E LEANA DO Unavailable Unavailable VALDEZ, E LEANA DO Unavailable Unavailable VALDEZ, E LEANA DO Unavailable Unavailable VALDEZ, E LEANA DO Unavailable Unavailable VALDEZ, E LEANA DO Unavailable Unavailable Servage, L Nazia SUMMER NANNY Unavailable Unavailable Servage, L Nazia SUMMER NANNY Unavailable Unavailable Servage, L Nazia SUMMER NANNY Unavailable Unavailable Servage, L Nazia SUMMER NANNY Unavailable Unavailable Servage, L Nazia SUMMER NANNY Unavailable Unavailable Servage, L Nazia SUMMER NANNY Unavailable Unavailable Servage, L Nazia SUMMER NANNY Unavailable Unavailable Servage, L Nazia SUMMER NANNY Unavailable Unavailable Servage, L Nazia SUMMER NANNY Unavailable Unavailable Servage, L Nazia SUMMER NANNY Unavailable Unavailable Servage, L Nazia SUMMER NANNY Unavailable Unavailable Servage, L Nazia SUMMER NANNY Unavailable Unavailable Servage, L Nazia SUMMER NANNY Unavailable Unavailable Servage, L Nazia SUMMER NANNY Unavailable Unavailable Servage, L Nazia SUMMER NANNY Unavailable Unavailable Servage, L Nazia SUMMER NANNY Unavailable Unavailable Servage, L Nazia SUMMER NANNY Unavailable Unavailable Servage, L Nazia SUMMER NANNY Unavailable Unavailable Servage, L Nazia SUMMER NANNY Unavailable Unavailable Servage, L Nazia SUMMER NANNY Unavailable Unavailable Servage, L Nazia SUMMER NANNY Unavailable Unavailable Servage, L Nazia SUMMER NANNY Unavailable Unavailable Servage, L Nazia SUMMER NANNY Unavailable Unavailable Servage, L Nazia SUMMER NANNY Unavailable Unavailable Servage, L Nazia SUMMER NANNY Unavailable Unavailable Servage, L Nazia SUMMER NANNY Unavailable Unavailable Servage, L Nazia SUMMER NANNY Unavailable Unavailable Servage, L Nazia SUMMER NANNY Unavailable Unavailable Servage, L Nazia SUMMER NANNY Unavailable Unavailable Servage, L Nazia SUMMER NANNY Unavailable Unavailable Servage, L Nazia SUMMER NANNY Unavailable Unavailable Servage, L Nazia SUMMER NANNY Unavailable Unavailable Servage, L Nazia SUMMER NANNY Unavailable Unavailable Servage, L Nazia SUMMER NANNY Unavailable Unavailable Servage, L Nazia SUMMER NANNY Unavailable Unavailable Servage, L Nazia SUMMER NANNY Unavailable Unavailable Servage, L Nazia SUMMER NANNY Unavailable Unavailable Servage, L Nazia SUMMER NANNY Unavailable Unavailable Servage, L Nazia SUMMER NANNY Unavailable Unavailable Servage, L Nazia SUMMER NANNY Unavailable Unavailable Servage, L Nazia SUMMER NANNY Unavailable Unavailable Servage, L Nazia SUMMER NANNY Unavailable Unavailable Servage, L Nazia SUMMER NANNY Unavailable Unavailable Servage, L Nazia SUMMER NANNY Unavailable Unavailable Servage, L Nazia SUMMER NANNY Unavailable Unavailable Servage, L Nazia SUMMER NANNY Unavailable Unavailable Servage, L Nazia SUMMER NANNY Unavailable Unavailable Servage, L Nazia SUMMER NANNY Unavailable Unavailable Servage, L Nazia SUMMER NANNY Unavailable Unavailable Servage, L Nazia SUMMER NANNY Unavailable Unavailable Servage, L Nazia SUMMER NANNY Unavailable Unavailable Servage, L Nazia SUMMER NANNY Unavailable Unavailable Servage, L Nazia SUMMER NANNY Unavailable Unavailable Servage, L Nazia SUMMER NANNY Unavailable Unavailable Servage, L Nazia SUMMER NANNY Unavailable Unavailable Servage, L Nazia SUMMER NANNY Unavailable Unavailable Servage, L Nazia SUMMER NANNY Unavailable Unavailable Servage, L Nazia SUMMER NANNY Unavailable Unavailable Servage, L Nazia SUMMER NANNY Unavailable Unavailable Servage, L Anzia SUMMER NANNY Unavailable Unavailable Servage, L Nazia SUMMER NANNY Unavailable Unavailable Servage, L Nazia SUMMER NANNY Unavailable Unavailable Servage, L Nazia SUMMER NANNY Unavailable Unavailable Servage, L Nazia SUMMER NANNY Unavailable Unavailable Servage, L Nazia SUMMER NANNY Unavailable Unavailable MARIA LUZGian MD Unavailable Unavailable MARIA LUZ, Gian KEARNEY MD Unavailable Unavailable Gian BRAGA MD Unavailable Unavailable Gian BRAGA MD Unavailable Unavailable Gian BRAGA MD Unavailable Unavailable Gian BRAGA MD Unavailable Unavailable Gian BRAGA MD Unavailable Unavailable Gian BRAGA MD Unavailable Unavailable Gian BRAGA MD Unavailable Unavailable Gian BRAGA MD Unavailable Unavailable Gian BRAGA MD Unavailable Unavailable Gian BRAGA MD Unavailable Unavailable Gian BRAGA MD Unavailable Unavailable Gian BRAGA MD Unavailable Unavailable Gian BRAGA MD Unavailable Unavailable Gian BRAGA MD Unavailable Unavailable Gian BRAGA MD Unavailable Unavailable Gian BRAGA MD Unavailable Unavailable Gian BRAGA MD Unavailable Unavailable Gian BRAGA MD Unavailable Unavailable Gian BRAGA MD Unavailable Unavailable Gian BRAGA MD Unavailable Unavailable Gian BRAGA MD Unavailable Unavailable Gian BRAGA MD Unavailable Unavailable Gian BRAGA MD Unavailable Unavailable Gian BRAGA MD Unavailable Unavailable Gian BRAGA MD Unavailable Unavailable Gian BRAGA MD Unavailable Unavailable Gian BRAGA MD Unavailable Unavailable Gian BRAGA MD Unavailable Unavailable Gian BRAGA MD Unavailable Unavailable Gian BRAGA MD Unavailable Unavailable Gian BRAGA MD Unavailable Unavailable Gian BRAGA MD Unavailable Unavailable Chantal Schmid MD Unavailable Unavailable Chantal Schmid MD Unavailable Unavailable Chantal Schmid MD Unavailable Unavailable Chantal Schmid MD Unavailable Unavailable Chantal Schmid MD Unavailable Unavailable Chantal Schmid MD Unavailable Unavailable Chantal Schmid MD Unavailable Unavailable Brody Schmidjcece [facility]ING[facility] Unavailable Unavailable Chantal Schmid MD Unavailable Unavailable Chantal Schmid MD Unavailable Unavailable Brody Schmidjtech Unavailable Unavailable Chantal Schmid MD Unavailable Unavailable Chantal Schmid MD Unavailable Unavailable Chantal Schmid MD Unavailable Unavailable Brody Schmidjtech Unavailable Unavailable Brody Schmidjtech Unavailable Unavailable Brody Schmidjtech Unavailable Unavailable Brody Schmidjtech Unavailable Unavailable Brody Schmidjtech Unavailable Unavailable Brody Schimdjtech Unavailable Unavailable SleChantal mchugh MD Unavailable Unavailable SleChantal mchugh MD Unavailable Unavailable SlebronsonkaXaviertech Unavailable Unavailable SlebronsonkaXaviertech Unavailable Unavailable SlebronsonkaXaviertech Unavailable Unavailable SlebronsonkaXaviertech Unavailable Unavailable SleChatnal mchugh MD Unavailable Unavailable SlezkaBrodyjtech Unavailable Unavailable SlebronsonkaBrodyjtech Unavailable Unavailable SlebronsonkaBrodyjtech Unavailable Unavailable SlebronsonkaXaviertech Unavailable Unavailable SlebronsonkaXaviertech Unavailable Unavailable SleChantal mchugh MD Unavailable Unavailable SlebronsonkaBrodyjtech Unavailable Unavailable SlebronsonkaBrodyjtech Unavailable Unavailable SlebronsonkaBrodyjtech Unavailable Unavailable SleXavier mchughtech Unavailable Unavailable Brody Schmidjtech Unavailable Unavailable SleChantal mchugh MD Unavailable Unavailable SleXavier mchughtech Unavailable Unavailable Brody Schmidjtech Unavailable Unavailable SleBrody mchughjtech Unavailable Unavailable SleChantal mchugh MD Unavailable Unavailable Xavier Schmidtech Unavailable Unavailable Chantal Schmid MD Unavailable Unavailable SleXavier mchughtech Unavailable Unavailable SleXavier mchughtech Unavailable Unavailable SleBrody mchughjtech Unavailable Unavailable Chantal Schmid MD Unavailable Unavailable Chantal Schmid MD Unavailable Unavailable Chantal Schmid MD Unavailable Unavailable SleXavier mchughtech Unavailable Unavailable SleXavier mchughtech Unavailable Unavailable SleBrody mchughjtech Unavailable Unavailable Chantal Schmid MD Unavailable Unavailable Chantal Schmid MD Unavailable Unavailable SleChantal mchugh MD Unavailable Unavailable SleChantal mchugh MD Unavailable Unavailable Blayne, Lydia Kieran CORRUGATOR MACHINE OPERATOR Unavailable Unavailable Blayne, Lydia Kieran CORRUGATOR MACHINE OPERATOR Unavailable Unavailable Gore, Lydia Kieran CORRUGATOR MACHINE OPERATOR Unavailable Unavailable Gore, Lydia Kieran CORRUGATOR MACHINE OPERATOR Unavailable Unavailable Gore, Lydia Kieran CORRUGATOR MACHINE OPERATOR Unavailable Unavailable Blayne, Lydia Kieran CORRUGATOR MACHINE OPERATOR Unavailable Unavailable Gore, Lydia Kieran CORRUGATOR MACHINE OPERATOR Unavailable Unavailable Blayne, Lydia Kieran CORRUGATOR MACHINE OPERATOR Unavailable Unavailable Gore, Lydia Kieran CORRUGATOR MACHINE OPERATOR Unavailable Unavailable Gore, Lydia Kieran CORRUGATOR MACHINE OPERATOR Unavailable Unavailable Gore, Lydia Kieran CORRUGATOR MACHINE OPERATOR Unavailable Unavailable Gore, Lydia Kieran CORRUGATOR MACHINE OPERATOR Unavailable Unavailable Gore, Lydia Kieran CORRUGATOR MACHINE OPERATOR Unavailable Unavailable GoreLydia moody CORRUGATOR MACHINE OPERATOR Unavailable Unavailable Makoti, L Jocelyne CORRUGATOR MACHINE OPERATOR Unavailable Unavailable Makoti, L Jocelyne CORRUGATOR MACHINE OPERATOR Unavailable Unavailable Makoti, L Jocelyne CORRUGATOR MACHINE OPERATOR Unavailable Unavailable Tiff, L Jocelyne CORRUGATOR MACHINE OPERATOR Unavailable Unavailable Tiff, L Jocelyne CORRUGATOR MACHINE OPERATOR Unavailable Unavailable Makoti, L Jocelyne CORRUGATOR MACHINE OPERATOR Unavailable Unavailable Tiff, L Jocelyne CORRUGATOR MACHINE OPERATOR Unavailable Unavailable Makoti, L Jocelyne CORRUGATOR MACHINE OPERATOR Unavailable Unavailable Tiff, L Jocelyne CORRUGATOR MACHINE OPERATOR Unavailable Unavailable Tiff, L Jocelyne CORRUGATOR MACHINE OPERATOR Unavailable Unavailable Tiff, L Jocelyne CORRUGATOR MACHINE OPERATOR Unavailable Unavailable Tiff, L Jocelyne CORRUGATOR MACHINE OPERATOR Unavailable Unavailable Makoti, L Jocelyne CORRUGATOR MACHINE OPERATOR Unavailable Unavailable Tiff, L Jocelyne CORRUGATOR MACHINE OPERATOR Unavailable Unavailable Makoti, L Jocelyne CORRUGATOR MACHINE OPERATOR Unavailable Unavailable Makoti, L Jocelyne CORRUGATOR MACHINE OPERATOR Unavailable Unavailable Makoti, L Jocelyne CORRUGATOR MACHINE OPERATOR Unavailable Unavailable Makoti, L Jocelyne CORRUGATOR MACHINE OPERATOR Unavailable Unavailable Makoti, L Jocelyne CORRUGATOR MACHINE OPERATOR Unavailable Unavailable Makoti, L Jocelyne CORRUGATOR MACHINE OPERATOR Unavailable Unavailable Tiff, L Jocelyne CORRUGATOR MACHINE OPERATOR Unavailable Unavailable Tiff, L Jocelyne CORRUGATOR MACHINE OPERATOR Unavailable Unavailable Makoti, L Jocelyne CORRUGATOR MACHINE OPERATOR Unavailable Unavailable Makoti, L Jocelyne CORRUGATOR MACHINE OPERATOR Unavailable Unavailable Makoti, L Jocelyne CORRUGATOR MACHINE OPERATOR Unavailable Unavailable Tiff, L Jocelyne CORRUGATOR MACHINE OPERATOR Unavailable Unavailable Makoti, L Jocelyne CORRUGATOR MACHINE OPERATOR Unavailable Unavailable Tiff, L Jocelyne CORRUGATOR MACHINE OPERATOR Unavailable Unavailable Tiff, L Jocelyne CORRUGATOR MACHINE OPERATOR Unavailable Unavailable Makoti, L Jocelyne CORRUGATOR MACHINE OPERATOR Unavailable Unavailable Tiff, L Jocelyne CORRUGATOR MACHINE OPERATOR Unavailable Unavailable Makoti, L Jocelyne CORRUGATOR MACHINE OPERATOR Unavailable Unavailable Makoti, L Jocelyne CORRUGATOR MACHINE OPERATOR Unavailable Unavailable Makoti, L Jocelyne CORRUGATOR MACHINE OPERATOR Unavailable Unavailable Tiff, L Jocelyne CORRUGATOR MACHINE OPERATOR Unavailable Unavailable Tiff, L Jocelyne CORRUGATOR MACHINE OPERATOR Unavailable Unavailable Makoti, L Jocelyne CORRUGATOR MACHINE OPERATOR Unavailable Unavailable Tiff, L Jocelyne CORRUGATOR MACHINE OPERATOR Unavailable Unavailable Makoti, L Jocelyne CORRUGATOR MACHINE OPERATOR Unavailable Unavailable Ibrahima LANGE MD Unavailable Unavailable Ibrahima LANGE MD Unavailable Unavailable Ibrahima LANGE MD Unavailable Unavailable Ibrahima LANGE MD Unavailable Unavailable Ibrahima LANGE MD Unavailable Unavailable Ibrahima LANGE MD Unavailable Unavailable Ibrahima LANGE MD Unavailable Unavailable Ibrahima LANGE MD Unavailable Unavailable Ibrahima LANGE MD Unavailable Unavailable Ibrahima LANGE MD Unavailable Unavailable Ibrahima LANGE MD Unavailable Unavailable Ibrahima LANGE MD Unavailable Unavailable Ibrahima LANGE MD Unavailable Unavailable Ibrahima LANGE MD Unavailable Unavailable Ibrahima LANGE MD Unavailable Unavailable Ibrahima LANGE MD Unavailable Unavailable Ibrahima LANGE MD Unavailable Unavailable Ibrahima LANGE MD Unavailable Unavailable Ibrahima LANGE MD Unavailable Unavailable Ibrahima LANGE MD Unavailable Unavailable Ibrahima LANGE MD Unavailable Unavailable Ibrahima LANGE MD Unavailable Unavailable Ibrahima LANGE MD Unavailable Unavailable Ibrahima LANGE MD Unavailable Unavailable Ibrahima LANGE MD Unavailable Unavailable Ibrahima LANGE MD Unavailable Unavailable Ibrahima LANGE MD Unavailable Unavailable Ibrahima LANGE MD Unavailable Unavailable Ibrahima LANGE MD Unavailable Unavailable Ibrahima LANGE MD Unavailable Unavailable Ibrahima LANGE MD Unavailable Unavailable Ibrahima LANGE MD Unavailable Unavailable Ibrahima LANGE MD Unavailable Unavailable Ibrahima LANGE MD Unavailable Unavailable MOFFA, NATASHA HAMM MD Unavailable Unavailable MOFFA, NATASHA HAMM MD Unavailable Unavailable MOFFA, NATASHA HAMM MD Unavailable Unavailable MOFFA, NATASHA HAMM MD Unavailable Unavailable MOFFA, NATASHA HAMM MD Unavailable Unavailable MOFFA, NATASHA HAMM MD Unavailable Unavailable MOFFA, NATASHA HAMM MD Unavailable Unavailable MOFFA, NATASHA HAMM MD Unavailable Unavailable MOFFA, NATASHA HAMM MD Unavailable Unavailable MOFFA, NATASHA HAMM MD Unavailable Unavailable MOFFA, NATASHA HAMM MD Unavailable Unavailable MOFFA, NATASHA HAMM MD Unavailable Unavailable MOFFA, NATASHA HAMM MD Unavailable Unavailable MOFFA, NATASHA HAMM MD Unavailable Unavailable MOFFA, NATASHA HAMM MD Unavailable Unavailable MOFFA, NATASHA HAMM MD Unavailable Unavailable MOFFA, NATASHA HAMM MD Unavailable Unavailable MOFFA, NATASHA HAMM MD Unavailable Unavailable MOFFA, NATASHA HAMM MD Unavailable Unavailable MOFFA, NATASHA HAMM MD Unavailable Unavailable MOFFA, NATASHA HAMM MD Unavailable Unavailable MOFFA, NATASHA HAMM MD Unavailable Unavailable MOFFA, NATASHA HAMM MD Unavailable Unavailable MOFFA, NATASHA HAMM MD Unavailable Unavailable MOFFA, NATASHA HAMM MD Unavailable Unavailable MOFFA, NATASHA HAMM MD Unavailable Unavailable MOFFA, NATASHA HAMM MD Unavailable Unavailable MOFFA, NATASHA HAMM MD Unavailable Unavailable MOFFA, NATASHA HAMM MD Unavailable Unavailable MOFFA, NATASHA HAMM MD Unavailable Unavailable MOFFA, NATASHA HAMM MD Unavailable Unavailable MOFFA, NATASHA HAMM MD Unavailable Unavailable MOFFA, NATASHA HAMM MD Unavailable Unavailable MOFFA, NATASHA HAMM MD Unavailable Unavailable MOFFA, NATASHA HAMM MD Unavailable Unavailable MOFFA, NATASHA HAMM MD Unavailable Unavailable MOFFA, NATASHA HAMM MD Unavailable Unavailable MOFFA, NATASHA HAMM MD Unavailable Unavailable MOFFA, NATASHA HAMM MD Unavailable Unavailable MOFFA, NATASHA HAMM MD Unavailable Unavailable MOFFA, NATASHA HAMM MD Unavailable Unavailable MOFFA, NATASHA HAMM MD Unavailable Unavailable MOFFA, NATASHA HAMM MD Unavailable Unavailable MOFFA, NATASHA HAMM MD Unavailable Unavailable MOFFA, NATASHA HAMM MD Unavailable Unavailable MOFFA, NATASHA HAMM MD Unavailable Unavailable MOFFA, NATASHA HAMM MD Unavailable Unavailable MOFFA, NATASHA HAMM MD Unavailable Unavailable MOFFA, NATASHA HAMM MD Unavailable Unavailable MOFFA, NATASHA HAMM MD Unavailable Unavailable MOFFA, NATASHA HAMM MD Unavailable Unavailable MOFFA, NATASHA HAMM MD Unavailable Unavailable MOFFA, NATASHA HAMM MD Unavailable Unavailable MOFFA, NATASHA HAMM MD Unavailable Unavailable MOFFA, NATASHA HAMM MD Unavailable Unavailable MOFFA, NATASHA HAMM MD Unavailable Unavailable MOFFA, NATASHA HAMM MD Unavailable Unavailable MOFFA, NATASHA HAMM MD Unavailable Unavailable MOFFA, NATASHA HAMM MD Unavailable Unavailable MOFFA, NATASHA HAMM MD Unavailable Unavailable MOFFA, NATASHA HAMM MD Unavailable Unavailable MOFFA, NATASHA HAMM MD Unavailable Unavailable MOFFA, NATASHA HAMM MD Unavailable Unavailable MOFFA, NATASHA HAMM MD Unavailable Unavailable MOFFA, NATASHA HAMM MD Unavailable Unavailable MOFFA, NATASHA HAMM MD Unavailable Unavailable MOFFA, NATASHA HAMM MD Unavailable Unavailable MOFFA, NATASHA HAMM MD Unavailable Unavailable MOFFA, NATASHA HAMM MD Unavailable Unavailable MOFFA, NATASHA HAMM MD Unavailable Unavailable MOFFA, NATASHA HAMM MD Unavailable Unavailable MOFFA, NATASHA HAMM MD Unavailable Unavailable MOFFA, NATASHA HAMM MD Unavailable Unavailable Ibrahima Modi MD Unavailable Unavailable Ibrahima Modi MD Unavailable Unavailable Ibrahima Modi MD Unavailable Unavailable Ibrahima Modi MD Unavailable Unavailable Ibrahima Modi MD Unavailable Unavailable Ibrahima Modi MD Unavailable Unavailable Ibrahima Modi MD Unavailable Unavailable Ibrahima Modi MD Unavailable Unavailable Ibrahima Modi MD Unavailable Unavailable Ibrahima Modi MD Unavailable Unavailable Ibrahima Modi MD Unavailable Unavailable Ibrahima Modi MD Unavailable Unavailable Ibrahima Modi MD Unavailable Unavailable Ibrahima Modi MD Unavailable Unavailable Ibrahima Modi MD Unavailable Unavailable Ibrahima Modi MD Unavailable Unavailable Ibrahima Modi MD Unavailable Unavailable Ibrahima Modi MD Unavailable Unavailable Ibrahima Modi MD Unavailable Unavailable SHIRA SINGLETON MD Unavailable Unavailable SHIRA SINGLETON MD Unavailable Unavailable SHIRA SINGLETON MD Unavailable Unavailable SHIRA SINGLETON MD Unavailable Unavailable SHIRA SINGLETON MD Unavailable Unavailable SHIRA SINGLETON MD Unavailable Unavailable SHIRA SINGLETON MD Unavailable Unavailable SHIRA SINGLETON MD Unavailable Unavailable SHIRA SINGLETON MD Unavailable Unavailable SHIRA SINGLETON MD Unavailable Unavailable SHIRA SINGLETON MD Unavailable Unavailable SHIRA SINGLETON MD Unavailable Unavailable SHIRA SINGLETON MD Unavailable Unavailable SHIRA SINGLETON MD Unavailable Unavailable SHIRA SINGLETON MD Unavailable Unavailable SHIRA SINGLETON MD Unavailable Unavailable SHIRA SINGLETON MD Unavailable Unavailable SHIRA SINGLETON MD Unavailable Unavailable SHIRA SINGLETON MD Unavailable Unavailable SHIRA SINGLETON MD Unavailable Unavailable SHIRA SINGLETON MD Unavailable Unavailable SHIRA SINGLETON MD Unavailable Unavailable SHIRA SINGLETON MD Unavailable Unavailable SHIRA SINGLETON MD Unavailable Unavailable SHIRA SINGLETON MD Unavailable Unavailable SHIRA SINGLETON MD Unavailable Unavailable SHIRA SINGLETON MD Unavailable Unavailable SHIRA SINGLETON MD Unavailable Unavailable SHIRA SINGLETON MD Unavailable Unavailable SHIRA SINGLETON MD Unavailable Unavailable SHIRA SINGLETON MD Unavailable Unavailable SHIRA SINGLETON MD Unavailable Unavailable SHIRA SINGLETON MD Unavailable Unavailable SHIRA SINGLETON MD Unavailable Unavailable SHIRA SINGLETON MD Unavailable Unavailable SHIRA SINGLETON MD Unavailable Unavailable SHIRA SINGLETON MD Unavailable Unavailable SHIRA SINGLETON MD Unavailable Unavailable SHIRA SINGLETON MD Unavailable Unavailable SHIRA SINGLETON MD Unavailable Unavailable SHIRA SINGLETON MD Unavailable Unavailable SHIRA SNIGLETON MD Unavailable Unavailable SHIRA SINGLETON MD Unavailable Unavailable SHIRA SINGLETON MD Unavailable Unavailable SHIRA SINGLETON MD Unavailable Unavailable SHIRA SINGLETON MD Unavailable Unavailable SHIRA SINGLETON MD Unavailable Unavailable SHIRA SINGLETON MD Unavailable Unavailable SHIRA SINGLETON MD Unavailable Unavailable SHIRA SINGLETON MD Unavailable Unavailable SHIRA SINGLETON MD Unavailable Unavailable SHIRA SINGLETON MD Unavailable Unavailable SHIRA SINGLETON MD Unavailable Unavailable SHIRA SINGLETON MD Unavailable Unavailable SHIRA SINGLETON MD Unavailable Unavailable SHIRA SINGLETON MD Unavailable Unavailable SHIRA SINGLETON MD Unavailable Unavailable SHIRA SINGLETON MD Unavailable Unavailable SHIRA SINGLETON MD Unavailable Unavailable SHIRA SINGLETON MD Unavailable Unavailable SHIRA SINGLETON MD Unavailable Unavailable SHIRA SINGLETON MD Unavailable Unavailable SHIRA SINGLETON MD Unavailable Unavailable SHIRA SINGLETON MD Unavailable Unavailable SHIRA SINGLETON MD Unavailable Unavailable SHIRA SINGLETON MD Unavailable Unavailable SHIRA SINGLETON MD Unavailable Unavailable SHIRA SINGLETON MD Unavailable Unavailable SHIRA SINGLETON MD Unavailable Unavailable SHIRA SINGLETON MD Unavailable Unavailable SHIRA SINGLETON MD Unavailable Unavailable SHIRA SINGLETON MD Unavailable Unavailable SHIRA SINGLETON MD Unavailable Unavailable SHIRA SINGLETON MD Unavailable Unavailable SHIRA SINGLETON MD Unavailable Unavailable SHIRA SINGLETON MD Unavailable Unavailable SHIRA SINGLETON MD Unavailable Unavailable SHIRA SINGLETON MD Unavailable Unavailable SHIRA SINGLETON MD Unavailable Unavailable SHIRA SINGLETON MD Unavailable Unavailable SHIRA SINGLETON MD Unavailable Unavailable SHIRA SINGLETON MD Unavailable Unavailable SHIRA SINGLETON MD Unavailable Unavailable SHIRA SINGLETON MD Unavailable Unavailable SHIRA SINGLETON MD Unavailable Unavailable Shalini, V ZOË PA-C Unavailable Unavailable [place], V ZOË PA-C Unavailable Unavailable [place], V ZOË PA-C Unavailable Unavailable [place], V ZOË PA-C Unavailable Unavailable [place], V ZOË PA-C Unavailable Unavailable [place], V ZOË PA-C Unavailable Unavailable Shalini, V ZOË PA-C Unavailable Unavailable [place], V ZOË PA-C Unavailable Unavailable Shalini, V ZOË PA-C Unavailable Unavailable [place], V ZOË PA-C Unavailable Unavailable [place], V ZOË PA-C Unavailable Unavailable [place], V ZOË PA-C Unavailable Unavailable Shalini, V ZOË PA-C Unavailable Unavailable [place], V ZOË PA-C Unavailable Unavailable Guevara, L [place] RPA Unavailable Unavailable Guevara, L [place] RPA Unavailable Unavailable Guevara, L [place] RPA Unavailable Unavailable Guevara, L [place] RPA Unavailable Unavailable Guevara, L [place] RPA Unavailable Unavailable Guevara, L [place] RPA Unavailable Unavailable Guevara, L [place] RPA Unavailable Unavailable Guevara, L [place] RPA Unavailable Unavailable Guevara, L [place] RPA Unavailable Unavailable Guevara, L [place] RPA Unavailable Unavailable Guevara, L [place] RPA Unavailable Unavailable Guevara, L [place] RPA Unavailable Unavailable Guevara, L [place] RPA Unavailable Unavailable Guevara, L [place] RPA Unavailable Unavailable Guevara, L [place] RPA Unavailable Unavailable Guevara, L [place] RPA Unavailable Unavailable Guevara, L [place] RPA Unavailable Unavailable Guevara, L [place] RPA Unavailable Unavailable Guevara, L [place] RPA Unavailable Unavailable Guevara, L [place] RPA Unavailable Unavailable Guevara, L [place] RPA Unavailable Unavailable Guevara, L [place] RPA Unavailable Unavailable Guevara, L [place] RPA Unavailable Unavailable Guevara, L [place] RPA Unavailable Unavailable Guevara, L [place] RPA Unavailable Unavailable Guevara, L [place] RPA Unavailable Unavailable Guevara, L [place] RPA Unavailable Unavailable Guevara, L [place] RPA Unavailable Unavailable Guevara, L [place] RPA Unavailable Unavailable Guevara, L [place] RPA Unavailable Unavailable Guevara, L [place] RPA Unavailable Unavailable [place]ue[place], L [place] RPA Unavailable Unavailable Sid RIVAS MD Unavailable Unavailable Sid RIVAS MD Unavailable Unavailable Sid RIVAS MD Unavailable Unavailable Sdi RIVAS MD Unavailable Unavailable Sid RIVAS MD Unavailable Unavailable Sid RIVAS MD Unavailable Unavailable Sid RIVAS MD Unavailable Unavailable Sid RIVAS MD Unavailable Unavailable Sid RIVAS MD Unavailable Unavailable Sid RIVAS MD Unavailable Unavailable Sid RIVAS MD Unavailable Unavailable Sid RIVAS MD Unavailable Unavailable Sid RIVAS MD Unavailable Unavailable Sid RIVAS MD Unavailable Unavailable Sid RIVAS MD Unavailable Unavailable Sid RIVAS MD Unavailable Unavailable Sid RIVAS MD Unavailable Unavailable Sid RIVAS MD Unavailable Unavailable Sid RIVAS MD Unavailable Unavailable Sid RIVAS MD Unavailable Unavailable Sid RIVAS MD Unavailable Unavailable Sid RIVAS MD Unavailable Unavailable Sid RIVAS MD Unavailable Unavailable Sid RIVAS MD Unavailable Unavailable Sid RIVAS MD Unavailable Unavailable Sid RIVAS MD Unavailable Unavailable Sid RIVAS MD Unavailable Unavailable Sid RIVAS MD Unavailable Unavailable Sid RIVAS MD Unavailable Unavailable GEREMIAS, T JAMARI MD Unavailable Unavailable GEREMIAS, T JAMARI MD Unavailable Unavailable GEREMIAS, T JAMARI MD Unavailable Unavailable GEREMIAS, T JAMARI MD Unavailable Unavailable GEREMIAS, T JAMARI MD Unavailable Unavailable GEREMIAS, T JAMARI MD Unavailable Unavailable GEREMIAS, T JAMARI MD Unavailable Unavailable GEREMIAS, T JAMARI MD Unavailable Unavailable GEREMIAS, T JAMARI MD Unavailable Unavailable GEREMIAS, T JAMARI MD Unavailable Unavailable GEREMIAS, T JAMARI MD Unavailable Unavailable GEREMIAS, T JAMARI MD Unavailable Unavailable GEREMIAS, T JAMARI MD Unavailable Unavailable GEREMIAS, T JAMARI MD Unavailable Unavailable GEREMIAS, T JAMARI MD Unavailable Unavailable GEREMIAS, T JAMARI MD Unavailable Unavailable GEREMIAS, T JAMARI MD Unavailable Unavailable Re-disclosure Warning The records that you are about to access may contain information from federally-assisted alcohol or drug abuse programs. If such information is present, then the following federally mandated warning applies: This information has been disclosed to you from records protected by federal confidentiality rules (42 CFR part 2). The federal rules prohibit you from making any further disclosure of this information unless further disclosure is expressly permitted by the written consent of the person to whom it pertains or as otherwise permitted by 42 CFR part 2. A general authorization for the release of medical or other information is NOT sufficient for this purpose. The Federal rules restrict any use of the information to criminally investigate or prosecute any alcohol or drug abuse patient.The records that you are about to access may contain highly sensitive health information, the redisclosure of which is protected by Article 27-F of the [facility] Public Health law. If you continue you may have access to information: Regarding HIV / AIDS; Provided by facilities licensed or operated by the [facility] Office of Mental Health; or Provided by the [facility] Office for People With Developmental Disabilities. If such information is present, then the following [facility] mandated warning applies: This information has been disclosed to you from confidential records which are protected by state law. State law prohibits you from making any further disclosure of this information without the specific written consent of the person to whom it pertains, or as otherwise permitted by law. Any unauthorized further disclosure in violation of state law may result in a fine or mcc sentence or both. A general authorization for the release of medical or other information is NOT sufficient authorization for further disc losure. Family History Family Member Name Family Member Gender Family Member Status Date o f Status Description Data Source(s) Unknown Male Problem MEDENT ([facility] ) () Unknown Male Problem [facility] ([facility] () Unknown Unknown Problem [facility] ([facility] Unknown Unknown Problem [facility] ([facility]) father,mother Unknown Unknown Problem [facility] ([facility]) Encounters Encounter Providers Location Date Indications Data Source(s ) Recurring Patient Referrer: DARELL SINGLETON MD 06/05/2021 09: 01:15 AM EDT [facility] Outpatient Attender: Jocelyne Matthew FNPReferrer: DARELL STOO MD 05/26/2021 03:04:48 PM EDT [facility] Outpatient Attender: Raven Braga/Jorge/David/Marie 05/13/2021 08:30:00 AM EDT [facility] Office Visit, Est Pt., Level 3 [address] [place] [address] 05/12/2021 12:00:00 AM EDT eCW1 ([facility]) Outpatient Attender: JAYLEN HERNANDEZ MDReferrer: Nazia Blum NP 05/08/2021 12:31:00 PM EDT [facility] Office Visit Attender: LEANA Harper/Jorge/David/Milly qureshi 05/04/2021 08:30:00 AM EDT [facility] Unknown [address], [facility] [address] 05/04/2021 12:00:00 AM EDT eCW1 ([facility]) Unknown [address], [facility] [address] 04/28/2021 12:00:00 AM EDT eCW1 ([facility]) Outpatient Attender: Mirella Braga/[place]/A ngel/Reindl 04/22/2021 02:30:00 PM EDT [facility] ([facility] Office Visit Attender: LEANA KELLOGG DO Maria Luz/[place]/David/Reind l 04/22/2021 10:30:00 AM EDT [facility] ([facility] Office Visit Attender: Baldomero Braga/[place]/David/Re indl 04/21/2021 09:00:00 AM EDT [facility] ([facility]) Recurring Patient Attender: JAYLEN HERNANDEZ MDReferrer: Nazia lopez NP 04/20/2021 03:03:17 PM EDT [facility] Outpatient [address] [place] [address], [place] [address] 04/07/2021 12:00:00 AM EDT eCW1 ([facility]) Outpatient Attender: LEANA Harper/[place]/David/Reind l 04/06/2021 11:15:00 AM EDT [facility] ([facility] Outpatient Attender: Baldomero Braga/[place]/David/Re indl 03/10/2021 10:00:00 AM EDT [facility] ([facility] Outpatient Attender: LEANA Voraang/[place]/David/Reind l 02/26/2021 11:00:00 AM EDT [facility] Outpatient Attender: Jocelyne Matthew FNPReferrer: Nazia clemons NP 02/20/2021 02:28:25 PM EDT [facility] Recurring Patient Referrer: DARELL SINGLETON MD 02/18/2021 09: 07:47 AM EDT [facility] Outpatient Attender: Baldomero Braga/[place]/David/Re indl 02/17/2021 09:15:00 AM EDT [facility] Outpatient Attender: ZOË SCOTT.ISHAP 06/ 12:00:00 AM EDT - 02/12/2021 11:38:52 AM EDT [facility] Out[facility] [address] [address] 02/11/2021 12:00:00 AM EDT eCW1 ([facility]) Recurring Patient Attender: JAYLEN JULIETTE MDReferrer: Nazia lopez SUMMER NANNY 02/05/2021 10:01:20 AM EDT [facility] Office Visit Attender: FELA Braga/Jorge/David/ Marie 02/05/2021 09:30:00 AM EDT [facility] ([facility] [place] [address] [address] 02/03/2021 12:00:00 AM EDT eCW1 ([facility]) Outpatient Attender: JAYLEN HERNANDEZ MDReferrer: Nazia Blum NP 02/02/2021 05:31:51 PM EDT [facility] Recurring Patient Attender: JAYLEN JULIETTE MDReferrer: Nazia lopez SUMMER NANNY 02/02/2021 10:53:43 AM EDT [facility] Recurring Patient Attender: JAYLEN JULIETTE MDReferrer: Nazia lopez SUM[place] NANNY 01/30/2021 02:15:44 PM EDT [facility] Recurring Patient Attender: JAYLEN JULIETTE MDReferrer: Nazia lopez SUMMER NANNY 01/30/2021 09:40:12 AM EDT [facility] [place] [address] [address] 01/16/2021 12:00:00 AM EDT eCW1 ([facility]) [place] [address] [address] 01/15/2021 12:00:00 AM EDT eCW1 ([facility]) Office Visit, Est Pt., Level 3 PC [address] [place] [address] 01/15/2021 12:00:00 AM EDT eCW1 ([facility]) Recurring Patient Referrer: DARELL SINGLETON MD 01/14/2021 03: 06:28 PM EDT [facility] Office Visit Attender: FELA Braga/Jorge/David/ Reindl 01/01/2021 10:00:00 AM EDT [facility] ([facility]) Outpatient Attender: JAMARI RIVAS MDReferrer: Nazia venegas NP 12/31/2020 08:24:34 AM EDT [facility] Recurring Patient Referrer: DARELL SINGLETON MD 12/30/2020 08: 52:10 AM EDT [facility] Recurring Patient Referrer: DARELL SINGLETON MD 12/30/2020 08: 49:25 AM EDT [facility] Recurring Patient Referrer: DARELL SINGLETON MD 12/30/2020 08: 47:48 AM EDT [facility] Office Visit Attender: [place] Braga/Jorge/David/R cosmel 12/23/2020 01:45:00 PM EDT [facility] ([facility] [address] [address] 12/17/2020 12:00:00 AM EDT eCW1 ([facility]) Office Visit, Est Pt., Level 4 [address] [place] [address] 12/10/2020 12:00:00 AM EDT eCW1 ([facility]) Outpatient Attender: ZOË SCOTT.JILL-SJP.JILL 09:27:35 AM EDT - 12/04/2020 10:05:06 AM EDT [facility] Outpatient Attender: Raven Braga/Jorge/David/Reindl 11/26/2020 09:00:00 AM EDT [facility] ([facility]) Unknown [address], [facility] [address] 11/24/2020 12:00:00 AM EDT eCW1 ([facility]) [place] [address] [address] 11/20/2020 12:00:00 AM EDT eCW1 ([facility]) [place] [address] [address] 11/17/2020 12:00:00 AM EDT eCW1 ([facility]) Outpatient Attender: ZOË HEALY-SJP.JILL 11/2020 12:00:00 AM EST - 10/23/2020 11:13:43 AM EST [facility] Outpatient Attender: FELA Braga/Jorge/David/ Reindl 10/21/2020 10:15:00 AM EST [facility] ([facility] Outpatient Attender: Jocelyne Matthew FNPReferrer: Nazia clemons NP 10/17/2020 10:24:29 AM EST [facility] Outpatient Attender: JAYLEN HERNANDEZ MDReferrer: Nazia Blum NP 10/13/2020 01:44:23 PM EST [facility] Recurring Patient Attender: JAYLEN HERNANDEZ MDReferrer: Nazia lopez NP 10/07/2020 09:54:45 AM EST [facility] Outpatient Attender: Raven Braga/Jorge/David/Reindl 10/02/2020 10:00:00 AM EST [facility] ([facility] Outpatient Attender: Chantal HEALY-SJP.JILL 11/2020 12:00:00 AM EST - 09/25/2020 10:59:13 AM EST [facility] [place] [address] [address] 09/17/2020 12:00:00 AM EST eCW1 ([facility]) [place] [address] [address] 09/16/2020 12:00:00 AM EST eCW1 ([facility]) Outpatient Attender: Baldomero Braga/[place]/David/Re indl 09/09/2020 10:15:00 AM EST [facility] ([facility] Outpatient Attender: FELA Braga/Jorge/David/ Reindl 09/09/2020 08:25:00 AM EST [facility] ([facility] [place] [address] [address] 09/08/2020 12:00:00 AM EST eCW1 ([facility]) [place] [address] [address] 09/05/2020 12:00:00 AM EST eCW1 ([facility]) Outpatient Attender: ZOË SCOTT.JILL-SJP.JILL 12:00:00 AM EST - 09/03/2020 08:53:53 AM EST [facility] Outpatient Attender: Baldomero Braga/Jorge/David/Re indl 08/27/2020 01:00:00 PM EST [facility] ([facility] Outpatient Attender: ZOË rAroyoferrer: VADIM SCOTT.JILL-SJP.JILL 08/25/2020 12:00:00 AM EST - 08/25/2020 02:08:49 PM EST [facility] Outpatient Attender: CHRISTEL Braga/Jorge/David/Reind l 08/20/2020 10:15:00 AM EST [facility] ([facility] [place] [address] [address] 08/20/2020 12:00:00 AM EST eCW1 ([facility]) [place] [address] [address] 08/19/2020 12:00:00 AM EST eCW1 ([facility]) Outpatient Attender: Jocelyne Matthew FNPReferrer: Nazia clemons NP 08/13/2020 09:00:10 AM EST [facility] Office Visit Attender: FELA Braga/[place]/David/ Reindl 08/05/2020 09:45:00 AM EST [facility] ([facility] Outpatient Attender: Baldomero Braga/[place]/David/Re indl 07/31/2020 08:00:00 AM EST [facility] ([facility] Office Visit Attender: Kieran Braga/[place]/David/Jamil ndl 07/15/2020 09:30:00 AM EST [facility] ([facility]) Outpatient Attender: JAYLEN HERNANDEZ MDReferrer: Nazia Blum NP 07/14/2020 01:52:27 PM EST [facility] Recurring Patient Attender: JAYLEN HERNANDEZ MDReferrer: Nazia lopez SUM[place] NANNY 07/14/2020 08:08:28 AM EST [facility] Recurring Patient Attender: JAYLEN HERNANDEZ MDReferrer: Nazia lopez SUM[place] NANNY 07/11/2020 10:08:36 AM EST [facility] Unknown [address] [place] [phone] 07/10/2020 12:00:00 AM EST eCW1 ([facility]) Outpatient LERAYSC 07/03/2020 09:00:01 AM EST [facility] Office Visit Attender: FELA Braga/Jorge/David/ Reindl 07/01/2020 12:45:00 PM EST [facility] ([facility] Outpatient Attender: ZOË SCOTT.JILL-SONIA.JILL 04/2020 12:00:00 AM EST - 06/30/2020 01:59:00 PM EST [facility] [address] [place] [address] 06/25/2020 12:00:00 AM EST eCW1 ([facility]) Office Visit, Est Pt., Level 4 PC [address] [place] [address] 06/05/2020 12:00:00 AM EDT eCW1 ([facility]) Outpatient LERAYDC 05/27/2020 09:16:02 AM EDT [facility] Outpatient LERAYDC 05/21/2020 12:32:02 PM EDT [facility] Outpatient LERAYDC 05/21/2020 12:31:00 PM EDT [facility] Outpatient LERAYDC 05/20/2020 10:28:01 AM EDT [facility] Outpatient LERAYDC 05/08/2020 02:59:01 PM EDT [facility] Outpatient LERAYDC 05/08/2020 02:54:00 PM EDT [facility] Outpatient WATNDC 05/08/2020 11:47:01 AM EDT [facility] Outpatient WATNDC 05/05/2020 04:58:02 PM EDT [facility] Outpatient WATNDC 05/02/2020 12:00:01 PM EDT [facility] Outpatient Attender: NORIS FIERRO MD [place] 04/17/2020 03:00:00 PM EDT [facility] ([facility]) Outpatient WATNDC 04/16/2020 04:06:02 PM EDT [facility] Outpatient WATND 04/16/2020 04:04:01 PM EDT [facility] Outpatient Attender: Amber Alicea NPReferrer: Nazia clemons NP 04/16/2020 11:31:04 AM EDT [facility] Outpatient Attender: SAIDA Harper/Jorge/David/Jamil ndl 04/08/2020 08:30:00 AM EDT MED[facility] ([facility] Immunizations Vaccine Date Status Description Data Source(s) COVID-19 dose #2 given elsewhere Unspecified 11/23/2020 10:0 1:00 AM EDT completed eCW1 ([facility]) COVID-19 dose #2 given elsewhere Unspecified 11/23/2020 10:0 1:00 AM EDT completed eCW1 ([facility]) COVID-19 dose #2 given elsewhere Unspecified 11/23/2020 10:0 1:00 AM EDT completed eCW1 ([facility]) COVID-19 dose #2 given elsewhere Unspecified 11/23/2020 10:0 1:00 AM EDT completed eCW1 ([facility]) COVID-19 dose #2 given elsewhere Unspecified 11/23/2020 10:0 1:00 AM EDT completed eCW1 ([facility]) COVID-19 dose #2 given elsewhere Unspecified 11/23/2020 10:0 1:00 AM EDT completed eCW1 ([facility]) COVID-19 dose #2 given elsewhere Unspecified 11/23/2020 10:0 1:00 AM EDT completed eCW1 ([facility]) COVID-19 dose #2 given elsewhere Unspecified 11/23/2020 10:0 1:00 AM EDT completed eCW1 ([facility]) COVID-19 dose #2 given elsewhere Unspecified 11/23/2020 10:0 1:00 AM EDT completed eCW1 ([facility]) COVID-19 VACCINE Pfizer 11/21/2020 12:00:00 AM EDT completed [facility] Vaccine Series Complete: YESThis Data wa s Submitted to [facility] Via [employer]. COVID-19 dose #1 given elsewhere Unspecified 11/02/2020 10:0 2:00 AM EDT completed eCW1 ([facility]) COVID-19 dose #1 given elsewhere Unspecified 11/02/2020 10:0 2:00 AM EDT completed eCW1 ([facility]) COVID-19 dose #1 given elsewhere Unspecified 11/02/2020 10:0 2:00 AM EDT completed eCW1 ([facility]) COVID-19 dose #1 given elsewhere Unspecified 11/02/2020 10:0 2:00 AM EDT completed eCW1 ([facility]) COVID-19 dose #1 given elsewhere Unspecified 11/02/2020 10:0 2:00 AM EDT completed eCW1 ([facility]) COVID-19 dose #1 given elsewhere Unspecified 11/02/2020 10:0 2:00 AM EDT completed eCW1 ([facility]) COVID-19 dose #1 given elsewhere Unspecified 11/02/2020 10:0 2:00 AM EDT completed eCW1 ([facility]) COVID-19 dose #1 given elsewhere Unspecified 11/02/2020 10:0 2:00 AM EDT completed eCW1 ([facility]) COVID-19 dose #1 given elsewhere Unspecified 11/02/2020 10:0 2:00 AM EDT completed eCW1 ([facility]) COVID-19 VACCINE Pfizer 10/31/2020 12:00:00 AM EST completed [facility] Vaccine Series Complete: NOThis Data was Submitted to [facility] Via [employer]. Medications Medication Brand Name Start Date Product Form Dose Route Admi nistrative Instructions Pharmacy Instructions Status Indications Reaction Description Data Source(s) 5-325 mg 05/26/2021 12:00:00 AM EDT tablet 240 TAKE TWO TABLETS BY MOUTH EVERY 6 HOURS NEEDED FOR PAIN MAXIMUM DAILY DOSE = 8 TABLETS TAKE TWO TABLETS BY MOUTH EVERY 6 HOURS NEEDED FOR PAIN MAXIMUM DAILY DOSE = 8 TABLETS SOLD: 06/04/2021 [facility] atorvastatin 20 MG Oral Tablet ATORVASTATIN CALCIUM 05/20/2021 1 2:00:00 AM EDT tablet 90 TAKE ONE TABLET BY MOUTH EVERY D AY TAKE ONE TABLET BY MOUTH EVERY DAY SOLD: 05/22/2021 [facility] 110 mcg/actuation 05/19/2021 12:00:00 AM EDT HFA aerosol inh aler 12 INHALE TWO PUFFS BY MOUTH TWICE A DAY INHALE TWO PUFFS BY MOUTH TWICE A DAY SOLD: 05/22/2021 [facility] Aerochamber Plus Hector-Vu 05/18/2021 12:00:00 AM EDT active MEDENT ([facility], ) 120 ACTUAT Fluticasone propionate 0.11 MG/ACTUAT Meter ed Dose Inhaler [Flovent] Flovent HFA 05/18/2021 12:00:00 AM EDT RESPIRATORY activ e MEDENT ([facility], ) doxycycline hyclate 100 MG Oral Tablet DOXYCYCLINE HYCLATE 0 05/18/2021 12:00:00 AM EDT tablet 20 TAKE ONE TABLET BY MOUTH TWI CE A DAY FOR 10 DAYS TAKE ONE TABLET BY MOUTH TWICE A DAY FOR 10 DAYS SOLD: 05/18/2021 [facility] 20 mcg/2 mL 05/15/2021 12:00:00 AM EDT solution for nebuliza tion 120 INHALE ONE VIAL VIA NEBULIZER BY MOUTH TWICE A DAY INHALE ONE VIAL VIA NEBULIZER BY MOUTH TWICE A DAY SOLD: 05/18/2021 [facility] 80 mcg/actuation 05/15/2021 12:00:00 AM EDT HFA aerosol daisy th activated 10 INHALE ONE PUFF BY MOUTH TWICE A DAY INHALE ONE PUFF BY MOUTH TWICE A DAY SOLD: 05/18/2021 [facility] 2.5 mg /3 mL (0.083 %) 05/13/2021 12:00:00 AM EDT solu tion for nebulization 375 INHALE THE CONTENTS OF ONE VIAL VIA NEBU LIZER FOUR TIMES A DAY NEEDED INHALE THE CONTENTS OF ONE VIAL VIA NEBULIZER FOUR TIMES A DAY NEEDED SOLD: 05/14/2021 [facility] 90 mcg/actuation 05/13/2021 12:00:00 AM EDT HFA aerosol inha ler 18 INHALE TWO PUFFS BY MOUTH FOUR TIMES A DAY NEEDED INHALE TWO PUFFS BY MOUTH FOUR TIMES A DAY NEEDED SOLD: 05/14/2021 [facility] doxycycline hyclate 100 MG Oral Tablet Doxycycline Hyc late 100 MG Doxycycline Hyclate 100 MG 05/12/2021 12:00:00 AM EDT 1.0 {tablet} active Doxycycline Hyclate 100 MG eCW1 ([facility]) Famotidine 40 MG Oral Tablet FAMOTIDINE 05/08/2021 12:00:00 AM EDT tab let 30 TAKE ONE TABLET BY MOUTH AT BEDTIME TAKE ONE TABLET BY MOUTH AT BEDTIME SOLD: 05/10/2021 [facility] Famotidine 40 MG Oral Tablet FAMOTIDINE 05/08/2021 12:00:00 AM EDT tab let 30 TAKE ONE TABLET BY MOUTH AT BEDTIME TAKE ONE TABLET BY MOUTH AT BEDTIME SOLD: 06/04/2021 [facility] 5-325 mg 04/20/2021 12:00:00 AM EDT tablet 240 TAKE TWO TABLETS BY MOUTH EVERY 6 HOURS NEEDED FOR PAIN MAXIMUM DAILY DOSE = EIGHT TABLETS TAKE TWO TABLETS BY MOUTH EVERY 6 HOURS NEEDED FOR PAIN MAXIMUM DAILY DOSE = EIGHT TABLETS SOLD: 04/21/2021 [facility] 25 mg 03/19/2021 12:00:00 AM EDT tablet 30 TAKE ONE TABLET BY MOUTH EVERY DAY TAKE ONE TABLET BY MOUTH EVERY DAY SOLD: 03/19/2021 [facility] 5-325 mg 03/17/2021 12:00:00 AM EDT tablet 240 TAKE 2 TABLETS BY MOUTH EVERY 6 HOURS NEEDED FOR PAIN MAXIMUM DAILY DOSE = 8 TABLETS TAKE 2 TABLETS BY MOUTH EVERY 6 HOURS NEEDED FOR PAIN MAXIMUM DAILY DOSE = 8 TABLETS SOLD: 03/19/2021 [facility] Amlodipine 10 MG Oral Tablet amLODIPine (NORVASC) 10 M G tablet amLODIPine (NORVASC) 10 MG tablet 02/11/2021 12:00:00 AM EDT active [facility] 10 mg 02/11/2021 12:00:00 AM EDT tablet 90 TAKE ONE TABLET BY MOUTH EVERY DAY TAKE ONE TABLET BY MOUTH EVERY DAY SOLD: 05/14/2021 [facility] Chantix Starting Month Richard 0.5 MG X 11 & 1 MG X 42 Isabel ntix Starting Month Richard 0.5 MG X 11 & 1 MG X 42 02/11/2021 12:00:00 AM EDT active Chantix Starting Month Richard 0.5 MG X 11 & 1 MG X 42 eCW1 ([facility]) 0.5 mg (11)- 1 mg (42) 02/11/2021 12:00:00 AM EDT tablets,do se pack 53 USE DIRECTED USE DIRECTED SOLD: 02/12/2021 [facility] 10 mg 02/11/2021 12:00:00 AM EDT tablet 90 TAKE ONE TABLET BY MOUTH EVERY DAY TAKE ONE TABLET BY MOUTH EVERY DAY SOLD: 02/12/2021 [facility] Chantix Starting Month Richard 0.5 MG X 11 & 1 MG X 42 tablet [id number] 02/11/2021 12:00:00 AM EDT active [facility] varenicline 1 MG Oral Tablet Chantix Continuing Month Richard 1 MG tablet Chantix Continuing Month Richard 1 MG tablet 02/11/2021 12:00:00 AM EDT active [facility] 1 mg 02/11/2021 12:00:00 AM EDT tablet 56 USE A S DIRECTED TWO TIMES A DAY USE DIRECTED TWO TIMES A DAY SOLD: 02/12/2021 [facility] Chantix Continuing Month Richard 1 MG Chantix Continuing Month P ak 1 MG 02/11/2021 12:00:00 AM EDT active Chantix Continuing Month Richard 1 MG eCW1 ([facility]) 5-325 mg 02/10/2021 12:00:00 AM EDT tablet 240 TAKE TWO TABLETS BY MOUTH EVERY 6 HOURS NEEDED FOR PAIN MAXIMUM DAILY DOSE = 8 TAKE TWO TABLETS BY MOUTH EVERY 6 HOURS NEEDED FOR PAIN MAXIMUM DAILY DOSE = 8 SOLD: 02/12/2021 [facility] Acetaminophen 325 MG / Oxycodone Hydrochloride 5 MG Or al Tablet 5-325 mg OXYCODONE HCL/ACETAMINOPHEN 01/22/2021 12:00:00 AM EDT tablet 120 TAKE TWO TABLETS BY MOUTH EVERY 6 HOURS NEEDED FOR PAIN MAXIMUM DAILY DOSE = 8 TAKE TWO TABLETS BY MOUTH EVERY 6 HOURS NEEDED FOR PAIN MAXIMUM DAILY DOSE = 8 SOLD: 01/25/2021 [facility] 10 gram/15 mL 01/12/2021 12:00:00 AM EDT solution 1350 TAKE 15ML BY MOUTH ONCE DAILY TAKE 15ML BY MOUTH ONCE DAILY SOLD: 01/12/2021 [facility] Lactulose 667 MG/ML Oral Solution Lactulose 01/09/2021 12:00:00 AM EDT completed [facility] 20 mg 12/27/2020 12:00:00 AM EDT tablet 90 TAKE ONE TABLET BY MOUTH EVERY DAY TAKE ONE TABLET BY MOUTH EVERY DAY SOLD: 12/29/2020 [facility] 4 mg 12/22/2020 12:00:00 AM EDT tablet 30 TAKE ONE TABLET BY MOUTH EVERY 6 HOURS NEEDED NAUSEA TAKE ONE TABLET BY MOUTH EVERY 6 HOURS NEEDED NAUSE A SOLD: 12/22/2020 [facility] Ondansetron 4 MG Oral Tablet [Zofran] Zofran 12/22/2020 12:00:00 AM EDT completed [facility] 10 mg 12/21/2020 12:00:00 AM EDT tablet 30 TAKE ONE TABLET BY MOUTH EVERY DAY TAKE ONE TABLET BY MOUTH EVERY DAY SOLD: 12/22/2020 [facility] lidocaine (LIDODERM) 5 % [id number] 12/16/2020 12:00:00 AM EDT active TAKE 1 3 PATCHES TO AFFECTED AREA ON 12 HOURS OFF 12 HOUR MAXIMUM DAILY DOSE 3 PATCHES [facility] 5 % 12/16/2020 12:00:00 AM EDT adhesive patch,medicate d 90 TAKE 1-3 PATCHES TO AFFECTED AREA ON 12 HOURS OFF 12 HOUR MAXIMUM DAILY DOSE = 3 PATCHES TAKE 1-3 PATCHES TO AFFECTED AREA ON 12 HOURS OFF 12 HOUR MAXIMUM DAILY DOSE = 3 PATCHES SOLD: 04/21/2021 [facility] 5 % 12/16/2020 12:00:00 AM EDT adhesive patch,medicate d 90 TAKE 1-3 PATCHES TO AFFECTED AREA ON 12 HOURS OFF 12 HOUR MAXIMUM DAILY DOSE = 3 PATCHES TAKE 1-3 PATCHES TO AFFECTED AREA ON 12 HOURS OFF 12 HOUR MAXIMUM DAILY DOSE = 3 PATCHES SOLD: 12/21/2020 [facility] SUPREP BOWEL PREP KIT 17.5-3.13-1.6 gram SODIUM, POTASSIUM,M AG SULFATES 12/13/2020 12:00:00 AM EDT recon soln 354 DIRECTED KANG JOSUE SOLD: 12/13/2020 [facility] 500 mg 12/13/2020 12:00:00 AM EDT tablet 6 TAKE 2 TABLETS BY MOUTH AT 2:00PM AND 10:00PM THEY DAY BEFORE SURGERY AND 2 TABLETS AT 6:00AM THE MORNING OF TAKE 2 TABLETS BY MOUTH AT 2:00PM AND 10:00PM THEY DAY BEFORE SURGERY AND 2 TABLETS AT 6:00AM THE MORNING OF SOLD: 12/13/2020 [facility] Metronidazole 500 MG Oral Tablet METRONIDAZOLE 12/13/2020 12:0 0:00 AM EDT tablet 3 TAKE 1 TABLET BY VINAYAK TH AT 2:00PM AND 10:00PM THE DAY BEFORE SURGERY AND 1 TABLET 6:00AM THE MORNING OF TAKE 1 TABLET BY MOUTH AT 2:00PM AND 10: 00PM THE DAY BEFORE SURGERY AND 1 TABLET 6:00AM THE MORNING OF SOLD: 12/13/2020 [facility] Metronidazole 500 MG Oral Tablet [Flagyl] Flagyl 12/10/2020 12:00 :00 AM EDT ORAL completed MEDENT ([facility], ) Suprep Bowel Prep Kit Suprep Bowel Prep Kit 12/10/2020 12:00:00 AM EDT completed MEDENT ([facility], ) Neomycin Sulfate 500 MG Oral Tablet Neomycin Sulfate 12/10/2020 12:00:00 AM EDT ORAL completed MEDENT ([facility], ) Furosemide 20 MG Oral Tablet furosemide (LASIX) 20 MG tablet furosemide (LASIX) 20 MG tablet 12/04/2020 12:00:00 AM EDT 20 mg Oral abort ed Take 1 tablet (20 mg total) by mouth daily [facility] Furosemide 20 MG Oral Tablet furosemide (LASIX) 20 MG tablet furosemide (LASIX) 20 MG tablet 12/04/2020 12:00:00 AM EDT 20 mg Oral activ e Take 1 tablet (20 mg total) by mouth daily [facility] 20 mg 12/04/2020 12:00:00 AM EDT tablet 30 TAKE ONE TABLET BY MOUTH EVERY DAY TAKE ONE TABLET BY MOUTH EVERY DAY SOLD: 12/08/2020 [facility] Acetaminophen 325 MG / Oxycodone Hydroch loride 10 MG Oral Tablet oxyCODONE- acetaminophen (PERCOCET) 10-325 MG per tablet oxyCODONE-acetaminophen (PERCOCET) 10-325 MG per tablet 11/26/2020 12:00:00 AM EDT active TAKE ONE TABLET BY MOUTH EVERY 4 HOURS MAXIMUM DAILY DOSE SIX TABLETS [facility] 10-325 mg 11/26/2020 12:00:00 AM EDT tablet 180 TAKE ONE TABLET BY MOUTH EVERY 4 HOURS MAXIMUM DAILY DOSE = SIX TABLETS TAKE ONE TABLET BY MOUTH EVERY 4 HOURS MAXIMUM DAILY DOSE = SIX TABLETS SOLD: 11/26/2020 [employer] Covid-19 vaccine, Unspecified 11/21/2020 12:00:00 AM EDT completed MEDENT ([facility], ) Medication administered onsite atorvastatin 20 MG Oral Tablet Atorvastatin Calcium 20 MG Atorvastatin Calcium 20 MG 11/17/2020 12:00:00 AM EDT 1.0 {tablet} activ e Atorvastatin Calcium 20 MG eCW1 ([facility]) atorvastatin 20 MG Oral Tablet Atorvastatin Calcium 20 MG Atorvastatin Calcium 20 MG 11/17/2020 12:00:00 AM EDT 1.0 {tablet} activ e Atorvastatin Calcium 20 MG eCW1 ([facility]) atorvastatin 20 MG Oral Tablet ATORVASTATIN CALCIUM 11/17/2020 1 2:00:00 AM EDT tablet 30 TAKE ONE TABLET BY MOUTH EVERY D AY TAKE ONE TABLET BY MOUTH EVERY DAY SOLD: 11/19/2020 [facility] atorvastatin 20 MG Oral Tablet Atorvastatin Calcium 20 MG Atorvastatin Calcium 20 MG 11/17/2020 12:00:00 AM EDT 1.0 {tablet} activ e Atorvastatin Calcium 20 MG eCW1 ([facility]) atorvastatin 20 MG Oral Tablet Atorvastatin Calcium 20 MG Atorvastatin Calcium 20 MG 11/17/2020 12:00:00 AM EDT 1.0 {tablet} activ e Atorvastatin Calcium 20 MG eCW1 ([facility]) atorvastatin 20 MG Oral Tablet Atorvastatin Calcium 20 MG Atorvastatin Calcium 20 MG 11/17/2020 12:00:00 AM EDT 1.0 {tablet} activ e Atorvastatin Calcium 20 MG eCW1 ([facility]) atorvastatin 20 MG Oral Tablet Atorvastatin Calcium 20 MG Atorvastatin Calcium 20 MG 11/17/2020 12:00:00 AM EDT 1.0 {tablet} activ e Atorvastatin Calcium 20 MG eCW1 ([facility]) atorvastatin 20 MG Oral Tablet ATORVASTATIN CALCIUM 11/17/2020 1 2:00:00 AM EDT tablet 30 TAKE ONE TABLET BY MOUTH EVERY D AY TAKE ONE TABLET BY MOUTH EVERY DAY SOLD: 12/22/2020 [facility] atorvastatin 20 MG Oral Tablet Atorvastatin Calcium 20 MG Atorvastatin Calcium 20 MG 11/17/2020 12:00:00 AM EDT 1.0 {tablet} activ e Atorvastatin Calcium 20 MG eCW1 ([facility]) atorvastatin 20 MG Oral Tablet Atorvastatin Calcium 20 MG Atorvastatin Calcium 20 MG 11/17/2020 12:00:00 AM EDT 1.0 {tablet} activ e Atorvastatin Calcium 20 MG eCW1 ([facility]) atorvastatin 20 MG Oral Tablet Atorvastatin Calcium 20 MG Atorvastatin Calcium 20 MG 11/17/2020 12:00:00 AM EDT 1.0 {tablet} activ e Atorvastatin Calcium 20 MG eCW1 ([facility]) atorvastatin 20 MG Oral Tablet ATORVASTATIN CALCIUM 11/17/2020 1 2:00:00 AM EDT tablet 30 TAKE ONE TABLET BY MOUTH EVERY D AY TAKE ONE TABLET BY MOUTH EVERY DAY SOLD: 03/29/2021 [facility] atorvastatin 20 MG Oral Tablet ATORVASTATIN CALCIUM 11/17/2020 1 2:00:00 AM EDT tablet 30 TAKE ONE TABLET BY MOUTH EVERY D AY TAKE ONE TABLET BY MOUTH EVERY DAY SOLD: 05/01/2021 [facility] atorvastatin 20 MG Oral Tablet Atorvastatin Calcium 20 MG Atorvastatin Calcium 20 MG 11/17/2020 12:00:00 AM EDT 1.0 {tablet} activ e Atorvastatin Calcium 20 MG eCW1 ([facility]) atorvastatin 20 MG Oral Tablet Atorvastatin Calcium 20 MG Atorvastatin Calcium 20 MG 11/17/2020 12:00:00 AM EDT 1.0 {tablet} activ e Atorvastatin Calcium 20 MG eCW1 ([facility]) atorvastatin 20 MG Oral Tablet Atorvastatin Calcium 20 MG Atorvastatin Calcium 20 MG 11/17/2020 12:00:00 AM EDT 1.0 {tablet} activ e Atorvastatin Calcium 20 MG eCW1 ([facility]) atorvastatin 20 MG Oral Tablet ATORVASTATIN CALCIUM 11/17/2020 1 2:00:00 AM EDT tablet 30 TAKE ONE TABLET BY MOUTH EVERY D AY TAKE ONE TABLET BY MOUTH EVERY DAY SOLD: 02/21/2021 [facility] atorvastatin 20 MG Oral Tablet Atorvastatin Calcium 20 MG Atorvastatin Calcium 20 MG 11/17/2020 12:00:00 AM EDT 1.0 {tablet} activ e Atorvastatin Calcium 20 MG eCW1 ([facility]) atorvastatin 20 MG Oral Tablet ATORVASTATIN CALCIUM 11/17/2020 1 2:00:00 AM EDT tablet 30 TAKE ONE TABLET BY MOUTH EVERY D AY TAKE ONE TABLET BY MOUTH EVERY DAY SOLD: 01/21/2021 [facility] 5-325 mg 11/12/2020 12:00:00 AM EDT tablet 120 TAKE TWO TABLETS BY MOUTH EVERY 6 HOURS NEEDED FOR PAIN MAXIMUM DAILY DOSE = 8 TABLETS TAKE TWO TABLETS BY MOUTH EVERY 6 HOURS NEEDED FOR PAIN MAXIMUM DAILY DOSE = 8 TABLETS SOLD: 11/12/2020 [facility] 80 mcg/actuation 11/10/2020 12:00:00 AM EDT HFA aerosol daisy th activated 10 INHALE ONE PUFF BY MOUTH TWICE A DAY INHALE ONE PUFF BY MOUTH TWICE A DAY SOLD: 11/12/2020 [facility] Qvar Redihaler Qvar Redihaler 11/10/2020 12:00:00 AM EDT ORAL active [facility] QVAR REDIHALER 80 MCG/ACT AERB [id number] 11/10/2020 12:00:00 AM EDT active INHALE ONE PUFF BY MOUTH TWI CE A DAY [facility] 80 mcg/actuation 11/10/2020 12:00:00 AM EDT HFA aerosol daisy th activated 10 INHALE ONE PUFF BY MOUTH TWICE A DAY INHALE ONE PUFF BY MOUTH TWICE A DAY SOLD: 01/21/2021 [facility] Covid-19 vaccine, Unspecified 10/31/2020 12:00:00 AM EST completed [facility] ([facility] Medication administered onsite 5-325 mg 10/30/2020 12:00:00 AM EST tablet 120 TAKE TWO TABLETS BY MOUTH EVERY 6 HOURS NEEDED FOR PAIN MAXIMUM DAILY DOSE = 8 TABLETS TAKE TWO TABLETS BY MOUTH EVERY 6 HOURS NEEDED FOR PAIN MAXIMUM DAILY DOSE = 8 TABLETS SOLD: 11/01/2020 [facility] 20 mg 10/24/2020 12:00:00 AM EST tablet 30 TAKE ONE TABLET BY MOUTH EVERY DAY TAKE ONE TABLET BY MOUTH EVERY DAY SOLD: 10/26/2020 [facility] Furosemide 20 MG Oral Tablet furosemide (LASIX) 20 MG tablet furosemide (LASIX) 20 MG tablet 10/23/2020 12:00:00 AM EST 20 mg Oral abort ed Take 1 tablet (20 mg total) by mouth daily [facility] 20 mcg/2 mL 10/17/2020 12:00:00 AM EST solution for nebuliza tion 120 USE 1 VIAL VIA NEBULIZER TWO TIMES A DAY USE 1 VIAL VIA NEBULIZER TWO TIMES A DAY SOLD: 10/18/2020 [facility] f[facility] 0.01 MG/ML Inhalant Solution [Perforomist] PERFOROMIST 20 MCG/2ML nebulizer solution PERFOROMIST 20 MCG/2ML nebulizer solution 10/17/2020 12:00:00 AM EST active USE 1 AL VIA NEBULIZER TWO TIMES A DAY [facility] formoterol fumarate 0.01 MG/ML Inhalant Solution [Perforomis t] Perforomist 10/13/2020 12:00:00 AM EST active MEDENT ([facility], ) Budesonide 0.25 MG/ML Inhalant Solution [Pulmicort] Pulmicor t 10/13/2020 12:00:00 AM EST completed [facility]ENT ([facility], ) Acetaminophen 325 MG / Oxycodone Hydrochloride 5 MG Or al Tablet 5-325 mg OXYCODONE HCL/ACETAMINOPHEN 10/10/2020 12:00:00 AM EST tablet 120 TAKE TWO TABLETS BY MOUTH EVERY 6 HOURS NEEDED FOR PAIN MAXIMUM DAILY DOSE = 8 TABLETS TAKE TWO TABLETS BY MOUTH EVERY 6 HOURS NEEDED FOR PAIN MAXIMUM DAILY DOSE = 8 TABLETS SOLD: 10/11/2020 [facility] Albuterol 0.83 MG/ML Inhalant Solution Albuterol Sulfate 0 10/02/2020 12:00:00 AM EST active MEDENT ([facility], ) 2.5 mg /3 mL (0.083 %) 10/02/2020 12:00:00 AM EST solu tion for nebulization 375 USE ONE VIAL VIA NEBILIZER FOUR TIMES A DAY NEEDED. USE ONE VIAL VIA NEBILIZER FOUR TIMES A DAY NEEDED. SOLD: 10/03/2020 [facility] Furosemide 40 MG Oral Tablet furosemide (LASIX) 40 MG tablet furosemide (LASIX) 40 MG tablet 09/25/2020 12:00:00 AM EST 40 mg Oral abort ed Take 1 tablet (40 mg total) by mouth daily [facility] 40 mg 09/25/2020 12:00:00 AM EST tablet 30 TAKE ONE TABLET BY MOUTH EVERY DAY TAKE ONE TABLET BY MOUTH EVERY DAY SOLD: 09/25/2020 [facility] 5-325 mg 09/17/2020 12:00:00 AM EST tablet 120 TAKE TWO TABLETS BY MOUTH EVERY 6 HOURS NEEDED FOR PAIN MAXIMUM DAILY DOSE = EIGHT TABLETS TAKE TWO TABLETS BY MOUTH EVERY 6 HOURS NEEDED FOR PAIN MAXIMUM DAILY DOSE = EIGHT TABLETS SOLD: 09/18/2020 [facility] 5-325 mg 09/03/2020 12:00:00 AM EST tablet 120 TAKE TWO TABLETS BY MOUTH EVERY 6 HOURS NEEDED FOR PAIN MAXIMUM DAILY DOSE = EIGHT TABLETS TAKE TWO TABLETS BY MOUTH EVERY 6 HOURS NEEDED FOR PAIN MAXIMUM DAILY DOSE = EIGHT TABLETS SOLD: 09/03/2020 [facility] Furosemide 40 MG Oral Tablet furosemide (LASIX) 40 MG tablet furosemide (LASIX) 40 MG tablet 08/20/2020 12:00:00 AM EST aborted [facility] Furosemide 40 MG Oral Tablet Furosemide 40 MG 08/20/2020 12:00:00 A M EST 1.0 {tablet} suspended Furosemide 40 MG eCW1 ([facility]) Furosemide 40 MG Oral Tablet Furosemide 40 MG 08/20/2020 12:00:00 A M EST 1.0 {tablet} active Furosemide 40 MG eCW1 ( [facility]) 40 mg 08/20/2020 12:00:00 AM EST tablet 10 TAKE ONE TABLET BY MOUTH EVERY DAY DIRECTED TAKE ONE TABLET BY MOUTH EVERY DAY DIRECTED SOLD: [facility] Furosemide 40 MG Oral Tablet Furosemide 40 MG 08/20/2020 12:00:00 A M EST 1.0 {tablet} active Furosemide 40 MG eCW1 ( [facility]) 5-325 mg 08/19/2020 12:00:00 AM EST tablet 120 TAKE TWO TABLETS BY MOUTH EVERY 6 HOURS NEEDED FOR PAIN MAXIMUM DAILY DOSE = 8 TABLETS TAKE TWO TABLETS BY MOUTH EVERY 6 HOURS NEEDED FOR PAIN MAXIMUM DAILY DOSE = 8 TABLETS SOLD: 08/20/2020 [facility] 5-325 mg 08/01/2020 12:00:00 AM EST tablet 120 TAKE TWO TABLETS BY MOUTH EVERY 6 HOURS NEEDED FOR PAIN * MAXIMUM DAILY DOSE = 8 TAKE TWO TABLETS BY MOUTH EVERY 6 HOURS NEEDED FOR PAIN * MAXIMUM DAILY DOSE = 8 SOLD: 08/02/2020 [facility] Prednisone 10 MG Oral Tablet Prednisone 07/31/2020 12:00:00 AM EST ORAL completed MEDENT ([facility] ) Prednisone 10 MG Oral Tablet predniSONE (DELTASONE) 10 MG tablet predniSONE (DELTASONE) 10 MG tablet 07/31/2020 12:00:00 AM EST aborted TAKE 2 TABLETS BY MOUTH TWICE A DAY FOR 10 DAYS THEN TAKE 1 TABLET BY MOUTH THREE TIMES A DAY FOR 10 DAYS THEN 1 TWO TIMES A DAY FOR 10 DAYS [facility] 10 mg 07/31/2020 12:00:00 AM EST tablet 90 TAKE 2 TABLETS BY MOUTH TWICE A DAY FOR 10 DAYS THEN TAKE 1 TABLET BY MOUTH THREE TIMES A DAY FOR 10 DAYS THEN 1 TWO TIMES A DAY FOR 10 DAYS TAKE 2 TABLETS BY MOUTH TWICE A DAY FOR 10 DAYS THEN TAKE 1 TABLET BY MOUTH THREE TIMES A DAY FOR 10 DAYS THEN 1 TWO TIMES A DAY FOR 10 DAYS SOLD: 07/31/2020 [facility] 5-325 mg 07/15/2020 12:00:00 AM EST tablet 120 TAKE TWO TABLETS BY MOUTH EVERY 6 HOURS NEEDED FOR PAIN MAXIMUM DAILY DOSE = EIGHT TABLETS TAKE TWO TABLETS BY MOUTH EVERY 6 HOURS NEEDED FOR PAIN MAXIMUM DAILY DOSE = EIGHT TABLETS SOLD: 07/16/2020 [facility] atorvastatin 20 MG Oral Tablet ATORVASTATIN CALCIUM 07/14/2020 1 2:00:00 AM EST tablet 90 TAKE ONE TABLET BY MOUTH EVERY D AY TAKE ONE TABLET BY MOUTH EVERY DAY SOLD: 07/16/2020 [facility] 10 mg 07/01/2020 12:00:00 AM EST tablet 50 TAKE TWO TABLETS BY MOUTH TWICE A DAY FOR 5 DAYS THEN 1 THREE TIMES A DAY FOR 5 DAYS THEN 1 TWO TIMES A DAY FOR 5 DAYS THEN 1 ONCE DAILY FOR 5 DAYS TAKE TWO TABLETS BY MOUTH TWICE A DAY FO R 5 DAYS THEN 1 THREE TIMES A DAY FOR 5 DAYS THEN 1 TWO TIMES A DAY FOR 5 DAYS THEN 1 ONCE DAILY FOR 5 DAYS SOLD: 07/01/2020 [facility] Atenolol 25 MG Oral Tablet ATENOLOL 06/30/2020 12:00:00 AM EST tablet 90 TAKE ONE TABLET BY MOUTH EVERY DAY TAKE ONE TABLET BY MOUTH EVERY DAY SOLD: 07/01/2020 [facility] 5-325 mg 06/27/2020 12:00:00 AM EST tablet 120 TAKE 2 TABLET BY MOUTH EVERY 6 HOURS NEEDED FOR PAIN MAXIMUM DAILY DOSE = EIGHT TABLETS TAKE 2 TABLET BY MOUTH EVERY 6 HOURS NEEDED FOR PAIN MAXIMUM DAILY DOSE = EIGHT TABLETS SOLD: 06/28/2020 [facility] Famotidine 40 MG Oral Tablet famotidine (PEPCID) 40 MG tablet famotidine (PEPCID) 40 MG tablet 06/06/2020 12:00:00 AM EDT 40 mg Oral active Take 40 mg by mouth [facility] 90 mcg/actuation 06/06/2020 12:00:00 AM EDT HFA aerosol inha ler 36 INHALE TWO PUFFS BY MOUTH EVERY 4 HOURS NEEDED INHALE TWO PUFFS BY MOUTH EVERY 4 HOURS NEEDED SOLD: 06/23/2020 [facility] 40 mg 06/06/2020 12:00:00 AM EDT tablet 90 TAKE ONE TABLET BY MOUTH AT BEDTIME TAKE ONE TABLET BY MOUTH AT BEDTIME SOLD: 06/23/2020 [facility] Famotidine 40 MG Oral Tablet FAMOTIDINE 06/06/2020 12:00:00 AM EDT tab let 90 TAKE ONE TABLET BY MOUTH AT BEDTIME TAKE ONE TABLET BY MOUTH AT BEDTIME SOLD: 09/18/2020 [facility] Famotidine 40 MG Oral Tablet FAMOTIDINE 06/06/2020 12:00:00 AM EDT tab let 90 TAKE ONE TABLET BY MOUTH AT BEDTIME TAKE ONE TABLET BY MOUTH AT BEDTIME SOLD: 01/12/2021 [facility] Famotidine 40 MG Oral Tablet Famotidine 40 MG 06/05/2020 12:00:00 A M EDT 1.0 {tablet_at_bedtime} active Famotidine 4 0 MG eCW1 ([facility]) Famotidine 40 MG Oral Tablet Famotidine 40 MG 06/05/2020 12:00:00 A M EDT 1.0 {tablet_at_bedtime} active Famotidine 4 0 MG eCW1 ([facility]) Famotidine 40 MG Oral Tablet Famotidine 40 MG 06/05/2020 12:00:00 A M EDT 1.0 {tablet_at_bedtime} active Famotidine 4 0 MG eCW1 ([facility]) Famotidine 40 MG Oral Tablet Famotidine 40 MG 06/05/2020 12:00:00 A M EDT 1.0 {tablet_at_bedtime} active Famotidine 4 0 MG eCW1 ([facility]) Famotidine 40 MG Oral Tablet Famotidine 40 MG 06/05/2020 12:00:00 A M EDT 1.0 {tablet_at_bedtime} active Famotidine 4 0 MG eCW1 ([facility]) Famotidine 40 MG Oral Tablet Famotidine 40 MG 06/05/2020 12:00:00 A M EDT 1.0 {tablet_at_bedtime} active Famotidine 4 0 MG eCW1 ([facility]) 5-325 mg 05/26/2020 12:00:00 AM EDT tablet 120 TAKE TWO TABLETS BY MOUTH EVERY 6 HOURS NEEDED FOR PAIN MAXIMUM DAILY DOSE = 8 TAKE TWO TABLETS BY MOUTH EVERY 6 HOURS NEEDED FOR PAIN MAXIMUM DAILY DOSE = 8 SOLD: 05/28/2020 [facility] 0.12 % 05/22/2020 12:00:00 AM EDT mouthwash 473 STARTING TOMORROW TAKE 5-10 ML BY MOUTH SWISH AND EXPECTORATE THREE TIMES A DAY STARTING TOMORROW TAKE 5-10 ML BY MOUTH SWISH AND EXPECTORATE THREE TIMES A DAY SOLD: 05/24/2020 [facility] 10 mg 05/20/2020 12:00:00 AM EDT tablet 180 TAKE ONE TABLET BY MOUTH EVERY 4 HOURS MAXIMUM DAILY DOSE = 6 TABLETS TAKE ONE TABLET BY MOUTH EVERY 4 HOURS MAXIMUM DAILY DOSE = 6 TABLETS SOLD: 05/21/2020 [facility] 10 mg 04/30/2020 12:00:00 AM EDT tablet 50 TAKE TWO TABLETS BY MOUTH TWICE A DAY FOR 5 DAYS THEN 1 THREE TIMES A DAY FOR 5 DAYS THEN 1 TWO TIMES A DAY FOR 5 DAYS THEN 1 ONCE DAILY FOR 5 DAYS TAKE TWO TABLETS BY MOUTH TWICE A DAY FO R 5 DAYS THEN 1 THREE TIMES A DAY FOR 5 DAYS THEN 1 TWO TIMES A DAY FOR 5 DAYS THEN 1 ONCE DAILY FOR 5 DAYS SOLD: 04/30/2020 [facility] Prednisone 10 MG Oral Tablet Prednisone 04/30/2020 12:00:00 AM EDT ORAL completed MEDENT ([facility], ) 5-325 mg 04/28/2020 12:00:00 AM EDT tablet 120 TAKE TWO TABLETS BY MOUTH EVERY 6 HOURS NEEDED FOR PAIN MAXIMUM DAILY DOSE = 8 TAKE TWO TABLETS BY MOUTH EVERY 6 HOURS NEEDED FOR PAIN MAXIMUM DAILY DOSE = 8 SOLD: 04/30/2020 [facility] 0.05 % 01/02/2020 12:00:00 AM EDT ointment 30 APPLY TO AFFECTED AREA(S) TWO TIMES A DAY APPLY TO AFFECTED AREA(S) TWO TIMES A DAY SOLD: 05/21/2020 [facility] 0.05 % 01/02/2020 12:00:00 AM EDT ointment 30 APPLY TO AFFECTED AREA(S) TWO TIMES A DAY APPLY TO AFFECTED AREA(S) TWO TIMES A DAY SOLD: 10/11/2020 [facility] 0.05 % 01/02/2020 12:00:00 AM EDT ointment 30 APPLY TO AFFECTED AREA(S) TWO TIMES A DAY APPLY TO AFFECTED AREA(S) TWO TIMES A DAY SOLD: 04/08/2020 [facility] 20 % 01/02/2020 12:00:00 AM EDT cream 85 APPLY TO AFFECTED AREA(S) ON HANDS ONCE DAILY NEEDED APPLY TO AFFECTED AREA(S) ON HANDS ONCE DAILY NEEDE D SOLD: 04/08/2020 [facility] 20 % 01/02/2020 12:00:00 AM EDT cream 85 APPLY TO AFFECTED AREA(S) ON HANDS ONCE DAILY NEEDED APPLY TO AFFECTED AREA(S) ON HANDS ONCE DAILY NEEDE D SOLD: 05/21/2020 [facility] Acetaminophen 325 MG / Oxycodone Hydroch loride 5 MG Oral Tablet oxyCODONE- acetaminophen (PERCOCET) 5-325 MG per tablet oxyCODONE-acetaminophen (PERCOCET) 5-325 MG per tablet 07/31/2019 12:00:00 AM EST abo rted [facility] Atenolol 25 MG Oral Tablet atenolol (TENORMIN) 25 MG t ablet atenolol (TENORMIN) 25 MG tablet 01/07/2016 12:00:00 AM EDT 25 mg Oral abort ed Take 25 mg by mouth daily [facility] Amlodipine 10 MG Oral Tablet amLODIPine (NORVASC) 10 M G tablet amLODIPine (NORVASC) 10 MG tablet 10 mg Oral aborted T steve 10 mg by mouth daily [facility] albuterol (PROVENTIL HFA;VENTOLIN HFA) 108 (90 BASE) MCG/[place] [id number] 2 {puff} Inhalation aborted Chronic Obstructive Pulmonary Disease Inhale 2 puffs every 4 (four) hours as needed for wheezing [facility] Chronic Obstructive Pulmonary Disease Insurance Providers Payer name Policy type / Coverage type Policy ID Covered constitution party ID Covered constitution party's relationship to adame Policy Adame Plan Information MVP Commercial Ppo 402 Self Ppo [facility] Commercial [id number] Self [id number] [facility] [id number] Inessa [id number] MVP [id number] Inessa [id number] 600 [employer] [facility] [facility] [id number] SP [id number] [facility] Community Plan Commercial [id number] Self [id number] [facility] Comm Plan Medicaid F [id number] SELF [id number] [facility] Comm Plan Medicaid F [id number] SELF [id number] Medicaid [facility] Healthcare S D [id number] SELF [id number] [facility] Comm Plan Medicaid F [id number] SELF [id number] [facility] MEDICAID [id number] xxxxxxxxx [id number] [facility] MEDICAID [id number] Inessa [id number] [facility] Comm Plan Medicaid F [id number] SELF [id number] [facility] MCDHMO [id number] SP [id number] [facility] Comm Plan Medicaid F [id number] SELF [id number] [facility] MEDICAID [id number] Inessa [id number] [facility] MEDICAID [id number] 1 Blue Cross Blue Shield P [id number] SELF [id number] EXCELLUS BCBS [id number] Inessa VYY [id number] Medicare C [id number] SELF [id number] [id number] MEDICARE [id number] Inessa [id number] C50 Blue Shield Medicare P [id number] SELF [id number] EXCELLUS BCBS [id number] xxxxxxxxxxxx [id number] MEDICARE [id number] xxxxxxxxxxx [id number] Blue Shield Medicare P [id number] SELF [id number] Medicare C [id number] SELF [id number] [id number] Blue Shield Medicare P [id number] SELF [id number] ANSI-Medicaid [id number] ANSI-Medicaid [id number] ANSI-Medicaid [id number] ANSI-Medicaid [id number] ANSI-Medicaid [id number] ANSI-Medicaid [id number] ANSI-Medicaid [id number] ANSI-Medicaid [id number] ANSI-Medicaid [id number] ANSI-Medicaid [id number] ANSI-Medicaid [id number] ANSI-Medicaid [id number] ANSI-Medicaid [id number] ANSI-Medicaid [id number] ANSI-Medicaid [id number] ANSI-Medicaid [id number] ANSI-Medicaid [id number] ANSI-Medicaid [id number] ANSI-Medicaid [id number] ANSI-Medicaid [id number] ANSI-Medicaid [id number] ANSI-Medicaid [id number] ANSI-Medicaid [id number] [facility] MCRHMO [id number] SP [id number] [facility] Health Maintenance Organization (HMO) [id number] Self [id number] ANSI-Medicaid [id number] ANSI-Medicaid [id number] P Commercial [id number] Self [id number] [facility] HEALTH CARE [id number] SP [id number] [facility] Health Maintenance Organization (HMO) [id number] Self [id number] [facility] Commercial [id number] Self [id number] [facility] Commercial [id number] Self [id number] [facility] Health Maintenance Organization (HMO) [id number] Self [id number] [facility] PI PI [facility] C[facility] O [id number] S [id number] [facility] HE[facility] [id number] SP [id number] [facility] [id number] SP [id number] [facility] Health Maintenance Organization (HMO) [id number] Self [id number] [facility] UNAVAILABLE UNAVAILABLE SELF PAY ONLY UNAVAILABLE SP UNAV AILABLE [facility] [id number] SP [id number] [facility] UNAVAILABLE UNAVAILABLE P UNAVAILABLE UNAVAILA BLE SELF PAY [id number] SP [id number] MEDICARE [id number] SP [id number] SELF PAY UNAVAILABLE SP UNAVAILA BLE UNHC COMMUNITY PLAN MCDHMO [id number] SP [id number] BC[place] PPO 302/307 [id number] SP [id number] [employer] [place] 306/806 [id number] SP [id number] [facility] [id number] SP [id number] MEDICARE BLUE PPO 306 [id number] SP [id number] [facility]) O [id number] S [id number] Managed Care - [facility] Community Plan P [id number] S [id number] Medicaid S [id number] ANSI-Medicaid [id number] [employer] Health Maintenance Organization (HMO) [id number] Self [id number] ANSI-Medicaid [id number] ANSI-Medicaid [id number] ANSI-Medicaid [id number] [facility] MEDICAID PI PI ANSI-Medicaid [id number] ANSI-Medicaid [id number] ANSI-Medicaid [id number] ANSI-Medicaid [id number] ANSI-Medicaid [id number] ANSI-Medicaid [id number] ANSI-Medicaid [id number] ANSI-Medicaid [id number] ANSI-Medicaid [id number] ANSI-Medicaid [id number] ANSI-Medicaid [id number] ANSI-Medicaid [id number] Problems, Conditions, and Diagnoses Code Display Name Description Problem Type Effective Dates Data Source(s) R06.02 Shortness of breath Shortness of breath Diagnosis 0 02/12/2021 10:52:28 AM EDT [facility] C10.9 Malignant neoplasm of oropharynx, unspec ified Malignant neoplasm of oropharynx, unspec Diagnosis 02/12/2021 10:52:28 AM EDT [facility] R09.89 Other specified symptoms and signs involving the circulatory and respiratory systems Other specified symptoms and signs invol Diagnosis 02/12/2021 10:52:28 AM EDT [facility] R20.2 Paresthesia of skin Paresthesia of skin Diagnosis 0 02/12/2021 10:52:28 AM EDT [facility] R20.0 Anesthesia of skin Anesthesia of skin Diagnosis 10:52:28 AM EDT [facility] G47.33 Obstructive sleep apnea (adult) (pediatr ic) Obstructive sleep apnea (adult) (pediatr Diagnosis 02/12/2021 10:52:28 AM EDT [facility] I45.5 Other specified heart block Other specified heart bloc k Diagnosis 02/12/2021 10:52:28 AM EDT [facility] I11.9 Hypertensive heart disease without heart failure Hypertensive heart disease without heart Diagnosis 02/12/2021 10:52:[address] [facility] E78.00 Pure hypercholesterolemia, unspecified P ure hypercholesterolemia, unspecified Diagnosis 02/12/2021 10:52:28 AM EDT [facility] Z98.61 Coronary angioplasty status Coronary angioplasty statu s Diagnosis 02/12/2021 10:52:28 AM EDT [facility] Z68.41 Body mass index (BMI) 40.0-44.9, adult B yoel mass index (BMI)40.0-44.9, adult Diagnosis 09/03/2020 08:00:36 AM EST [facility] E66.01 Morbid (severe) obesity due to excess ca lories Morbid (severe) obesity due to excess ca Diagnosis 09/03/2020 08:00:36 AM EST [facility] F17.210 Nicotine dependence, cigarettes, uncompl icated Nicotine dependence, cigarettes, uncompl Diagnosis 09/03/2020 08:00:36 AM EST [facility] I10 Essential (primary) hypertension Essential (primary) h ypertension Diagnosis 09/03/2020 08:00:36 AM EST [facility] Z68.31 [id number] BMI 31.0-31.9,adult Problem 05/12/2021 12:00 :00 AM EDT eCW1 ([facility]) H91.93 [id number] Bilateral hearing loss, unspecified heari ng loss type Problem 01/15/2021 12:00:00 AM EDT eCW1 ([facility]) Z85.21 [id number] History of laryngeal cancer Problem 12/12/19 12:00:00 AM EDT eCW1 ([facility]) K57.20 [id number] Diverticulitis of la rge intestine with perforation and abscess without bleeding Problem 12/10/2020 12:00:00 AM EDT eCW1 ([facility]) Z93.3 [id number] Colostomy status Problem 12/10/2020 12:00:00 AM EDT eCW1 ([facility]) Z87.891 Ex-smoker Ex-smoker Problem 10/02/2020 12:00:00 AM ES T MEDENT ([facility], ) J44.9 Chronic obstructive lung disease Chronic obstructive l jeanette disease Problem 10/02/2020 12:00:00 AM EST MED[facility] ([facility], ) R06.02 Dyspnea Dyspnea Problem 10/02/2020 12:00:00 AM ES T MED[facility] ([facility], ) Z98.61 [id number] Coronary angioplasty status Problem 09/10/19 12:00:00 AM EST eCW1 ([facility]) I89.0 [id number] Acquired lymphedema Problem 09/10/2020 12:00 :00 AM EST eCW1 ([facility]) Z90.49 700901881 Status post colectomy Problem 09/10/2020 12: 00:00 AM EST eCW1 ([facility]) R06.02 SOB (shortness of breath) SOB (shortness of breath) 64 [id number] 08/25/2020 12:00:00 AM EST [facility] C10.9 Oropharyngeal cancer Oropharyngeal cancer [id number] 06/30/2020 12:00:00 AM [facility] R20.0 Numbness and tingling of foot Numbness and tingling of foot [id number] 06/30/2020 12:00:00 AM EST [facility] I45.5 Sinus pause Sinus pause [id number] 06/30/2020 12:00:00 AM [facility] 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 06/06/2020 12:00:00 AM EDT eCW1 ([facility]) 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 Hypertensive chronic kidney disease, stage 1-4 or unspecified chronic kidney disease Problem 06/05/2020 12:00:00 AM EDT eCW1 ([facility]) K21.9 [id number] Gastroesophageal reflux disease without e sophagitis Problem 06/05/2020 12:00:00 AM EDT eCW1 ([facility]) 528.9 Other and unspecified diseases of the or al soft tissues Other and unspecified diseases of the oral soft tissues 05/21/2020 12: 30:09 PM EDT [facility] Surgeries/Procedures Procedure Description Date Indications Data Source(s) Spirometry 05/13/2021 12:00:00 AM EDT Rob SEGOVIA ([facility], ) OFFICE OUTPATIENT VISIT 25 MINUTES 05/13/2021 12:00:00 AM EDT LUIS ([facility], ) OFFICE OUTPATIENT NEW 45 MINUTES 04/22/2021 12:00:00 A M EDT LUIS ([facility], ) EXC TUMOR SOFT TISSUE NECK/THORAX SUBFASC 5 CM/> 04/14 12:00:00 AM EDT LUIS ([facility], ) EXC TUMOR SOFT TISSUE NECK/THORAX SUBFASC 5 CM/> 04/14 12:00:00 AM EDT MEDENT ([facility]) OFFICE OUTPATIENT VISIT 25 MINUTES 04/06/2021 12:00:00 AM EDT MEDENT ([facility]) LARYNGOSCOPY FLEXIBLE FIBEROPTIC DIAGNOSTIC 03/10/2021 12:00:00 AM EDT MED[facility] ([facility]) OFFICE OUTPATIENT VISIT 15 MINUTES 03/10/2021 12:00:00 AM EDT MED[facility] ([facility]) OFFICE OUTPATIENT NEW 45 MINUTES 02/26/2021 12:00:00 A M EDT MED[facility] ([facility], ) LARYNGOSCOPY FLEXIBLE FIBEROPTIC DIAGNOSTIC 02/17/2021 12:00:00 AM EDT MED[facility] ([facility]) OFFICE OUTPATIENT VISIT 15 MINUTES 02/17/2021 12:00:00 AM EDT [facility] ([facility], ) POCT AMB EKG <td>POCT AMB EKG</td><td>Rou elkin</td><td>02/12/2021 2:38 PM EDT</td><td> Coronary angioplasty status</td><td> </td> 02/12/2021 02:38:00 PM EDT Coronary angioplasty status [facility] Coronary angioplasty status uro PVR (Post Voiding Residual) Bladder Scan 12:00:00 AM EDT eCW1 ([facility]) THYROID STIMULATING HORMONE TSH <td>TSH</td><td>Routine</td><td>01/15/2021</td><td></td><td> </td> 01/15/2021 12:00:00 AM EDT [facility] BASIC METABOLIC PANEL CALCIUM TOTAL <td>BASIC METABOLI C PANEL</td><td>Routine</td><td>01/15/2021</td><td></td><td> </td> 01/15/2021 12:00:00 AM T [facility] HEPATIC FUNCTION PANEL <td>HEPATIC FUNCTION PANEL</td><td>Routine</td><td>12/21/2020</td><td></td><td> </td> 12/21/2020 12:00:00 AM EDT [facility] BASIC METABOLIC PANEL CALCIUM TOTAL <td>BASIC METABOLI C PANEL</td><td>Routine</td><td>12/21/2020</td><td></td><td> </td> 12/21/2020 12:00:[address] [facility] BLOOD COUNT COMPLETE AUTO&AUTO DIFRNTL WBC COUNT <td>C BC AND DIFFERENTIAL</td><td>Routine</td><td>12/20/2020</td><td></td><td> </td> 12/20/2020 12:00:[address] [facility] BASIC METABOLIC PANEL CALCIUM TOTAL <td>BASIC METABOLI C PANEL</td><td>Routine</td><td>12/19/2020</td><td></td><td> </td> 12/19/2020 12:00:[address] [facility] Laparoscopy Surgical Mobilization Take Down Of Splenic Flexu re Pe 12/17/2020 12:00:00 AM EDT [facility] ([facility] Laparoscopy Surgical Closure Of Enterostomy, Large Or Small Intes 12/17/2020 12:00:00 AM EDT [facility] ([facility]) Laparoscopy Surgical Closure Of Enterostomy, Large Or Small Intes 12/17/2020 12:00:00 AM EDT [facility] ([facility]) LARYNGOSCOPY FLEXIBLE FIBEROPTIC DIAGNOSTIC 12/10/2020 12:00:00 AM EDT [facility] ([facility], ) POCT AMB EKG <td>POCT AMB EKG</td><td>Rou elkin</td><td>12/04/2020 10:07 AM EDT</td><td> Pre-op evaluation</td><td> </td> 12/04/2020 02:07:00 PM EDT Pre-op evaluation [facility] Pre-op evaluation Spirometry 11/26/2020 12:00:00 AM EDT M EDENT ([facility], ) OFFICE OUTPATIENT VISIT 25 MINUTES 11/26/2020 12:00:00 AM EDT MED[facility] ([facility], ) LARYNGOSCOPY FLEXIBLE FIBEROPTIC DIAGNOSTIC 10/29/2020 12:00:00 AM EST [facility] ([facility], ) OFFICE OUTPATIENT VISIT 15 MINUTES 10/21/2020 12:00:00 AM EST [facility] ([facility] ) Spirometry 10/02/2020 12:00:00 AM EST M EDENT ([facility], ) OFFICE OUTPATIENT VISIT 25 MINUTES 10/02/2020 12:00:00 AM EST [facility] ([facility] ) LARYNGOSCOPY FLEXIBLE FIBEROPTIC DIAGNOSTIC 09/09/2020 12:00:00 AM EST [facility] ([facility], ) OFFICE OUTPATIENT VISIT 10 MINUTES 09/09/2020 12:00:00 AM EST [facility] ([facility], ) OFFICE OUTPATIENT VISIT 15 MINUTES 09/09/2020 12:00:00 AM EST [facility] ([facility], ) OFFICE OUTPATIENT VISIT 15 MINUTES 08/27/2020 12:00:00 AM EST [facility] ([facility], ) ECG ROUTINE ECG W/LEAST 12 LDS W/I&R <td>POCT AMB EKG</td><td>Routine</td><td>08/25/2020 5:44 PM EST</td><td> SOB (shortness of breath)</td><td> </td> 08/25/2020 10:44:00 PM EST SOB (shortness of breath) [facility] SOB (shortness of breath) LARYNGOSCOPY FLEXIBLE FIBEROPTIC DIAGNOSTIC 08/20/2020 12:00:00 AM EST [facility] ([facility]) ECG ROUTINE ECG W/LEAST 12 LDS W/I&R <td>POCT AMB EKG</td><td>Routine</td><td>06/30/2020 9:54 AM EST</td><td> Coronary angioplasty status</td><td> </td> 06/30/2020 02:54:00 PM EST Coronary angioplasty status [facility] Coronary angioplasty status LARYNGOSCOPY FLEXIBLE FIBEROPTIC DIAGNOSTIC 06/19/2020 12:00:00 AM EDT [facility] ([facility]) Colonoscopy Flexible Proximal To Splenic Flexure W/Biopsy Si ngle/ 06/04/2020 12:00:00 AM EDT [facility] LARYNGOSCOPY FLEXIBLE FIBEROPTIC DIAGNOSTIC 04/30/2020 12:00:00 AM EDT [facility] ([facility] ) Results ID Date Data Source [id number] 06/04/2021 10:07:19 AM EDT [facility] INFORMATIONPatient MRN Name Date of Age Gend*PT [id number] Maycol Mishra 1955 65 years M ---PT Location Admission Date/Time Visit ID Attending Provider --- --- --- --- EPI ID CSN Admitting Provider [id number] ---Addended by: ZOË SALAZAR on: 06/04/2021 10:07 AM Modules accepted: Orders Name Value Range Interpretation Code Description Data Caitlin rce(s) Supporting Document(s) ID Date Data Source [id number] 06/02/2021 12:00:00 AM EDT [facility] Name Value Range Interpretation Code Description Data Caitlin rce(s) Supporting Document(s) SARS-CoV2 Rapid Antigen Negative [facility] This lab was ordered by [facility] and reported by [facility]. 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 Patient was asked and denies being seen by any Physicians since their last visit. At today's visit patient presents with their Self Implanted Devices The patient does not have any implanted devices. The patient does not have a glucose monitoring device. Patient is not currently working. 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 The patient is being seen for a follow-up. The date of onset of symptoms is approximately Yrs. Pain Duration: YEARS Pain Quality: (Nociceptive) sharp and stabbing Timing: intermittent. Palliation: block and opioid analgesics Exacerbating: bending, lifting, standing, twisting and walki ng Pain Score: a current pain level of 7/10. Condition type: The patient is being seen for an acute exacerbation of a chronic condition. PAIN LOCATION: the pain is located in the low back . INTERVAL EVENTS: include . Pain in his low back and bilateral legs has been worse over the last 3 weeks. He is having a procedure to have his throat stretched due to the history of throat cancer and that is scheduled for 06/08/2021. Also leaving for [place] in 1 month for the winter. Active Problems 1. Chronic low back pain (724.2,338.29) (M54.50,G89.29) 2. 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 Lumbar disc herniation (722.10) (M51.26) 4. Lumbar radiculopathy (724.4) (M54.16) 5. Lumbar spondylosis (721.3) (M47.816) 6. Sacroiliitis (720.2) (M46.1) Allergies adenosine Anaphylaxis; Cardiac arrest; Recorded By: Henry Stockton; 04/25/2019 2:16:54 PM Morphine Derivatives Itching; Recorded By: Henry Stockton; 04/25/2019 2:16:54 PMDenied Adhesive Tape Recorded By: Henry Stockton; 04/25/2019 2:16:54 PM Iodinated Contrast Media Recorded By: Henry Stockton; 04/25/2019 2:16:54 PM Latex Recorded By: Henry Stockton; 04/25/2019 2:16:54 PM Current Meds amLODIPine Besylate 10 MG Oral Tablet;Therapy: [id number] to Recorded Aspirin 81 MG Oral Tablet Delayed Release; TAKE 1 TABLET DAILY DIRECTED;Therapy: (Recorded:[id number]) to Recorded Lipitor 20 MG Oral Tablet;Therapy: (Recorded:[id number]) to Recorded Percocet 5-325 MG Oral Tablet;Therapy: (Recorded:[id number]) to RecordedLD 05/26/2021 6:15am Ventolin HFA 108 (90 Base) MCG/ACT Inhalation Aerosol Solution;Therapy: [id number] to Recorded Past Medical History History of anticoagulant therapy (V87.49) (Z92.29) 04/2019-Plavix 75mg, Dr. Schmid, . History of arthritis (V13.4) (Z87.39) History of cardiovascular disorder (V12.50) (Z86.79) Denied: History of coagulation defect History of hypertension (V12.59) (Z86.79) History of methicillin resistant Staphylococcus aureus infection (V12.04) (Z86.14) History of throat cancer (V10.02) (Z85.819) 07/2019 diagnosed Surgical History History of Cardiac catheterization with stent placement 12/2018 x4 Denied: History of Cardioverter defibrillator insertion History of Colon surgery 05/27/2020 History of Hip replacement 2008, bilateral History of Lumbar laminectomy 2008 Denied: History of Pacemaker insertion VitalsVital Signs Recorded: [id number] 07:55AM Pacemaker: NoICD: NoHeight: 5 ft 9 inWeight: 236 lb BMI Calculated: 34.85 kg/m2BSA Calculated: 2.22Systolic: 160Diastolic: 94Heart Rate: 84Respiration: 19O2 Saturation: 97Height measured w/wo shoes: w/shoesPain Scale: 7 Physical ExamGeneral: The patient is a well nourished/well developed, male, who is obese, who is in no acute distress and appears stated age. Gait and Station: Gait was antalgic. Lungs are clear to auscultation b ilaterally Cardiovascular: Extremities without peripheral edema, auscultation of heart reveals S1, S2 regular rate and rhythm, without murmur.Lumbosacral Spine:- Inspection: normal appearance. No deformity, ecchymosis, erythema or swelling noted. Normal Lordosis.. - Palpation/Tenderness: Tenderness on palpation of the LEFT: paraspinal , sciatic notch and sacroiliac joint. - Palpation/Tenderness: Tenderness on palpation of the RIGHT: paraspinal , sciatic notch and sacroiliac joint. - ROM Flexion: was restricted, was painful. - ROM Extension: was not restricted, was painful.Right Lower Extremity Motor:- Hip: 4/4 flexion, 4/5 extension- Knee: 4/5 flexion, 4/5 extension- Foot: 5/5 Plantar , 5/5 DorsiFlexionSpecial Tests: flip test was negative and positive facet challenge Left Lower Extremity Motor:- Hip: 5/5 flexion, 5/5 extension- Knee: 5/5 flexion, 5/5 extension- Foot: 5/5 Plantar , 5/5 DorsiFlexionSpecial Tests: flip test was negative and positive facet challenge Neurological:Sensation Left Lower: normalSensation Right Lower: normal. Psychological: Alert and oriented to person, place and time. Mood and affect are pleasant and appropriate. Judgement intact. Insight normal without delusions or hallucinations. Denies suicidal/homicidal ideation. Assessment 1. Chronic low back pain (724.2,338.29) (M54.50,G89.29) 2. 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 Lumbar radiculopathy (724.4) (M54.16) 4. Lumbar spondylosis (721.3) (M47.816) Plan 1. Aspirin, Aspirin Products (Trans/Thor Lumb Inter/Para/Splanch/Stellate Procedure Patient education Status: Complete Done: [id number] 2. Block (Thora cic/Lumbar Interlaminar) ([facility]) Referral Procedure Procedure Status: Complete Done: [id number] Type : MedicareIs patient currently on a biologic? : NoReminder: : Place order for Anticoag: Aspirin Products Transforam-InterlamIs your patient taking aspirin for cardiac or stroke prevention...? : YesIs patient taking Aspirin > 81 mg...? : NoIs your patient on an Anticoagulant -OR- have Coagulopathy...? : NoSedation : YesArea: : LumbarEducate pt. on Covid Vaccine : Educate pt. that procedure w/steroid cannot be done within 14 days of Covid vaccine and to avoid vaccine 7 days after procedure.Block : Interlaminar (Epidural) (Steroid)Does Patient Require a Personal Care Protective Signal Repairer Helper (POA/HCP)? : NoProfessional Institutional Asset Manager needed for block? : NoFront Desk Reminder: : Schedule the Status Post BlockPt weight: SODS: </= 450 lbs. HODS: </= 400 lbs. ENTER WEIGHT: : 236IF PT has Thrombocytopenia are platelets >/= 100,000 ? : NAAre you ordering physical therapy...? : NoDoes patient require a Karis lift? : NoIs this an urgent request? : Yes - This is an urgent requestDoes Patient require Covid-19 testing 5 days before procedure...? : No CVT needed, Provider viewed vaccine documentation, instruct pt to bring proof to ASCCovid Risk : Low Risk 3. MIPS - Survey Evaluation Evaluation Status: Complete Done: [id number] Depression Screening - Patient's PHQ-9 score is: : N/A - PHQ-9 not performed todayHave you EVER received a Pneumococcal Vaccine...? : Yes - Patient has previously received a Pneumococcal vaccinationFLU - Have you received a flu shot in 2020 ? : No - Influenza not previously received due to patient declined or other patient reasonsBMI for Patients 18 and over : 25 or greater, BMI above normal parameters, follow-up plan documentedDo you use any kind of Tobacco? (smokes or uses smokeless tobacco): : Patient identified as a NON-Tobacco User<OBX.5.1><OBX.5.1.1>WOMEN </OBX.5.1.1><OBX.5.1.2> ANYONE >/= 65 - How many times in the past year have you had 4 or more</OBX.5.1.2></OBX.5.1> drinks in a day? : N/AMEN < 65 - How many times in the past year have you had 5 or more drinks in a day? : Zero Medication:. The patient does not receive any medication prescriptions from this office. Treatment includes: PROCEDURE(S): - Nerve Block Plan: I am ordering a, LUMBAR, INTERLAMINAR (STEROID INJECTION). Definitive levels to be determined by the interventional physician based on fluoroscopic imaging and symptomatology at the time of the procedure. This procedure is , targeting the L5 S1 level and under fluoroscopy with SEDATION. NERVE BLOCK: The material risks, benefits, alternatives have been discussed with the patient, including no treatment. They include, but are not limited to, bleeding, bruising, infection, damage to targeted and non-targeted tissue, increased pain, nerve injury or other reaction, if severe, could lead to CVA, arrhythmias or . The patient was given procedure instructions and educational material for this specific procedure at the time of the visit.- Bleeding Disorder: Patient denies having a bleeding disorder. - Anticoagulation therapy: ASPIRIN (Transforaminal or Interlaminar) Reduce / maintain aspirin to 81 mg if taking for cardiac or stroke prevention. Patient will be instructed at procedure when to resume. FOLLOW UP: The patient should have a follow up visit 4 weeks post block. CONTINUE TREATMENT: Maycol will continue with the following:. Patient will follow up with their PCP. Miscellaneous: - ACTIVITY COUNSELING: Discussed use of stationary/recumbent bike and/or continue exercises and stretches patient may have learned at PT. Patient encouraged to increase daily physical activity including ergonomics and aerobic activity. - WEIGHT LOSS: Weight loss was discussed and encouraged. 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 Discussion/SummaryMaycol is a 65-year-old man having an acute exacerbation of low back and bilateral leg pain over the last 3 weeks. He has a procedure scheduled for 06/08/2021 to have his throat stretched due to his history of throat cancer. He is also leaving for [place] in 1 month. He still sees pain management for his pain medications every 3 months. We will schedule him for a lumbar interlaminar injection at L5-S1 urgently. This is with sedation. He will continue his 81 mg aspirin. He sees his primary and specialist routinely for his routine health care and blood work. He will follow up with us after the block to assess relief.Comorbidities that may affect outcome include: Hypertension, history of throat cancer, cardiovascular disease and obesity. Hatsize Disclaimer[facility] [place] Hatsize Disclaimer: This document was dictated and electronically signed using [employer] software. A reasonable attempt at proof reading has been made to minimize errors. Please call with any questions. Signatures Electronically signed by : BASILIO Trammell; May 26 2021 8:16AM EST (Author) Electronically signed by : María Elena Bull MD; May 26 2021 3:04PM EST Name Value Range Interpretation Code Description Data Caitlin rce(s) Supporting Document(s) ID Date Data Source [id number] 05/13/2021 08:21:00 AM EDT [facility] ([facility], ) Name Value Range Interpretation Code Description Data Caitlin rce(s) Supporting Document(s) PDFReport Laboratory test result [facility] ([facility], ) FVC-Pred 4.98 L [facility] ([facility], ) FVC-LLN 3.99 L [facility] ([facility]) FVC-%Pred-Pre 67 L [facility] ([facility], ) FVC-Pre 3.35 L [facility] ([facility]) Fev1-Pred 3.73 L [facility] ([facility]) Fev1-%Pred-Pre 58 L [facility] ([facility]) Fev1-Pre 2.17 L [facility] ([facility]) Fev1-LLN 2.89 L [facility] ([facility]) Fev6-Pre 3.33 L [facility] ([facility]) Fev6-Pred 4.74 L [facility] ([facility]) Fev6-%Pred-Pre 70 L [facility] ([facility]) Cba2stv-Sosq 75 % [facility] ([facility]) Fev6-LLN 3.78 L [facility] ([facility]) Pof8gur-%Pred-Pre 86 % [facility] ([facility]) Vfp8ynl-Zym 65 % [facility] ([facility]) Xxv0iwu-SBS 65 % [facility] ([facility]) Kjg9xhz-Glaf 95 % [facility] ([facility]) Epg5gpl-Wur 99 % [facility] ([facility]) Djs4aio-%Pred-Pre 104 % [facility] ([facility]) FEFMax-Pred 9.37 L/E/sec [facility] ([facility]) FEFMax-Pre 4.03 L/E/sec [facility] ([facility]) FEFMax-LLN 6.91 L/E/sec [facility] ([facility]) FEFMax-%Pred-Pre 42 L/E/sec [facility] ([facility]) Vhp1099-%Pred-Pre 40 L/E/sec [facility] ([facility]) Vhw8412-Fwv 1.20 L/E/sec [facility] ([facility]) Kdz2354-Fgjx 2.96 L/E/sec [facility] ([facility]) ExpTime-Pre 7.46 sec [facility] ([facility]) Xkc2020-EYR 1.27 L/E/sec [facility] ([facility]) Sgu4jik5-Hpgm 78 % [facility] ([facility]) Fbh1apj7-%Pred-Pre 82 % [facility] ([facility]) Yps6udu8-Fze 65 % [facility] ([facility]) Uvc5cfc9-FDV 69 % [facility] ([facility]) ID Date Data Source [id number] 05/08/2021 12:31:00 PM EDT [facility], PCName: Maycol MishraDOB: 1955Provider: Chayo Hernandez: 05/07/2021 Reason For VisitStecarmen Mishra is here today for right knee. Maycol had his second Covid vaccine on 11/21/20. Maycol Mishra is an established patient here for follow up. Patient states his last cortisone injection gave good relief x2.5 months. He states his pain level is now 7/10 laterally and posteriorly. He takes percocet for his back. His knee has some swelling. He is not using a gaita jaiden. Patient states their pain is a 7 out of 10. Patient is retired. PlanHPI:This 65 year old is here for followup for the right knee.The cortisone injection gave him relief for about two and one-half months. He would like another one today. He notes 7 out of 10 pain laterally and posteriorly. This is a chronic problem that has been ongoing for years and is gradually worsening. Injection does help it, but it seems to recur. He uses Percocet which he takes for his back. He has some swelling in the knee. He is not using a cane or a gait aid. He is retired. PHYSICAL EXAMINATION:The patient appears well-developed, well-nourished and in no significant acute distress. The patients body habitus computes to obese. Patient is oriented to person, place and time. The patients mood is appropriate to situation. The patients coordination is normal. The patient uses no assistive device. Examination of the right knee reveals no abnormalities of the skin. Posterior tibial pulse is present. Capillary refill is satisfactory. Compartments are soft. Homans sign is negative. Swelling is mild. There is no discrete motor loss, although a diffuse weakness is present. The patient's gait is modestly antalgic. Sensation is normal to touch. Diffuse tenderness to palpation. There is knee effusion which is small. Standing alignment is neutral. Squat test is positive. ROM shows mild global loss. Extensor mechanism is intact. Stability tests negative unless noted. ASSESSMENT:1. Primary osteoarthritis, right knee. IMPRESSION AND PLAN:Surgical and nonsurgical treatment options were reviewed with the patient. Options like medication, injection, viscosupplementation, and surgical options were reviewed. The patient understands these options exist, but wants to pursue injection. The procedure of knee injection was reviewed with the patient. The rationale for injection was reviewed. The potential risks of injection, including pain or infection, were reviewed with the patient.Procedure: After a review of risks and benefits and after obtaining the patient's consent and under sterile conditions, a mixture of 80 mg Depo-Medrol and 0.5% bupivacaine was injected into the right knee. Follow-up with me as scheduled for reconsideration of these options and potential for intervention. The patient may eventually require surgical intervention, possibly in the form of knee arthroplasty if appropriate preoperative criteria can be met.The issue of weight control was reviewed with the patient. Several different methodologies, including nut ritional changes, intermittent fasting, regular exercise, acquisition of increased lean muscle mass, and other methods, were reviewed with the patient. The patient was strongly encouraged to pursue weight loss both as a means to facilitate potential surgical intervention in the future, and improving current quality of life through improved pain control. The patient voiced a clear understanding of this important issue. Signatures Electronically signed by : Sabina Hanson, ; May 08 2021 10:47AM EST Electronically signed by : Jaylen Hernandez M.D.; May 08 2021 12:30PM EST (Author) Name Value Range Interpretation Code Description Data Caitlin rce(s) Supporting Document(s) ID Date Data Source [id number] 04/15/2021 05:46:00 AM EDT [facility] ([facility], ) Name Value Range Interpretation Code Description Data Caitlin rce(s) Supporting Document(s) Glucose, Fasting 151 mg/dL 70-100 Above high [facility] Blood Urea Nitrogen 15 mg/dL 7-18 Normal (applies to non-nume robb results) [facility] ([facility]) Glomerular Filtration Rate Laboratory test result Normal (applies to non- numeric results) [facility]) <content>Units are mL/min/1.73 m2</content>
<content></content>
<content>Chronic Kidney Disease Staging per NKF:</content>
<content></content>
<content>Stage I & II GFR >=60 Normal to Mildly Decreased</content>
<content>Stage III GFR 30- 59 Moderately Decreased</content>
<content>Stage IV GFR 15-29 Severely Decreased</content>
<content>Stage V GFR <15 Very Little GFR Left</content>
<content>ESRD GFR <15 on DIEING OUT MACHINE OPERATOR</content>
<content></content> Creatinine For GFR 1.04 mg/dL 0.70-1.30 Normal (applies to non -numeric results) [facility]) Sodium Level 136 meq/L 136-145 Normal (applies to non-numeric res ults) [facility]) Potassium Serum 4.0 meq/L 3.5-5.1 Normal (applies to non-numeric results) [facility]) Chloride Level 103 meq/L 98-107 Normal (applies to non-numeric r esults) [facility]) Carbon Dioxide Level 27 meq/L 21-32 Normal (applies to non-num shani results) [facility]) Anion Gap 6 meq/L 8-16 Below low normal [facility]) Calcium Level 8.9 mg/dL 8.8-10.2 Normal (applies to non-numeric re sults) [facility]) ID Date Data Source [id number] 04/15/2021 05:46:00 AM EDT [facility]) Name Value Range Interpretation Code Description Data Caitlin rce(s) Supporting Document(s) White Blood Count 8.4 10 4.0-10.0 Normal (applies to non-numeri c results) [facility]) Hemoglobin 13.1 g/dL 13.5-17.5 Below low normal [facility]) Red Blood Count 4.28 10 4.30-6.10 Below low normal [facility]) Mean Corpuscular Volume 91.4 fl 80.0-96.0 Normal ( applies to non-numeric results) [facility]) Hematocrit 39.1 % 42.0-52.0 Below low normal [facility]) Mean Corpuscular HGB Conc 33.5 g/dL 32.0-36.5 Normal (applies to non-numeric results) [facility]) Mean Corpuscular Hemoglobin 30.6 pg 27.0-33.0 Norm al (applies to non-numeric results) [facility]) Red Cell Distribution Width 14.3 % 11.5-14.5 Norm al (applies to non-numeric results) [facility] ([facility]) Platelet Count, Automated 258 10 150-450 Normal (applies to non-numeric results) [facility]) Nucleated Red Blood Cell % 0.0 % 0-0 Normal (applies to n on-numeric results) [facility]) ID Date Data Source [id number] 04/14/2021 12:46:00 PM EDT [facility]) Name Value Range Interpretation Code Description Data Caitlin rce(s) Supporting Document(s) Glucose, Fasting 135 mg/dL 70-100 Above high normal M [facility]) Creatinine For GFR 1.27 mg/dL 0.70-1.30 Normal (applies to non -numeric results) [facility] ([facility]) Blood Urea Nitrogen 18 mg/dL 7-18 Normal (applies to non-nume robb results) [facility] ([facility]) Sodium Level 135 meq/L 136-145 Below low normal [facility] ([facility]) Glomerular Filtration Rate Laboratory test result Normal (applies to non- numeric results) [facility]) <content>Units are mL/min/1.73 m2</content>
<content></content>
<content>Chronic Kidney Disease Staging per NKF:</content>
<content></content>
<content>Stage I & II GFR >=60 Normal to Mildly Decreased</content>
<content>Stage III GFR 30- 59 Moderately Decreased</content>
<content>Stage IV GFR 15-29 Severely Decreased</content>
<content>Stage V GFR <15 Very Little GFR Left</content>
<content>ESRD GFR <15 on DIEING OUT MACHINE OPERATOR</content>
<content></content> Potassium Serum 3.7 meq/L 3.5-5.1 Normal (applies to non-numeric results) [facility]) Chloride Level 103 meq/L 98-107 Normal (applies to non-numeric r esults) [facility] ([facility]) Carbon Dioxide Level 27 meq/L 21-32 Normal (applies to non-num shani results) [facility] ([facility]) Anion Gap 5 meq/L 8-16 Below low normal [facility] ( [facility]) Ast/Sgot 21 U/L 7-37 Normal (applies to non-numeric resul ts) [facility] ([facility]) Calcium Level 9.0 mg/dL 8.8-10.2 Normal (applies to non-numeric re sults) [facility] ([facility]) Alkaline Phosphatase 85 U/L 45-117 Normal (applies to non-num shani results) [facility] ([facility]) Alt/SGPT 23 U/L 12-78 Normal (applies to non-numeric resul ts) [facility]) Bilirubin,Total 0.6 mg/dL 0.2-1.0 Normal (applies to non-numeric results) [facility] ([facility]) Total Protein 7.6 GM/DL 6.4-8.2 Normal (applies to non-numeric re sults) [facility]) Albumin 3.4 GM/DL 3.2-5.2 Normal (applies to non-numeric resul ts) [facility] ([facility]) Albumin/Globulin Ratio 0.8 Normal (applies to non-n umeric results) [facility] ([facility]) ID Date Data Source [id number] 04/14/2021 12:46:00 PM EDT [facility] ([facility]) Name Value Range Interpretation Code Description Data Caitlin rce(s) Supporting Document(s) aPTT in Platelet poor plasma by Coagulation assay 42.2 s 25.9-37.0 Above high normal [facility] ([facility]) *Is patient on Anticoagulants? N ID Date Data Source [id number] 04/14/2021 12:46:00 PM EDT [facility] ([facility]) Name Value Range Interpretation Code Description Data Caitlin rce(s) Supporting Document(s) Inr 1.11 Normal (applies to non-numeric resul ts) [facility] ([facility]) THERAPUTIC HUMAN INR VALUES INDICATIONS NORMAL RANGES PROPHYLAXIS/TREATMENT OF: VENOUS THROMBOSIS 2.0-3.0 PULMONARY EMBOLISM 2.0-3.0 PREVENTION OF SYSTEMIC EMBOLISM FROM: TISSUE HEART VALVES 2.0-3.0 ACUTE MYOCARDIAL INFARCTION 2.0-3.0 VALVULAR HEART DISEASE 2.0-3.0 ATRIAL FIBRILLATION 2.0-3.0 MECHANICAL VALVES(HIGH RISK) 2.5-3.5 RECURRENT MYOCARDIAL INFARCTION 2.5-3.5 Prothrombin Time 14.7 s 12.7-14.5 Above high normal M [facility] ([facility]) ID Date Data Source [id number] 04/14/2021 12:46:00 PM EDT [facility] ([facility]) Name Value Range Interpretation Code Description Data Caitlin rce(s) Supporting Document(s) White Blood Count 4.9 10 4.0-10.0 Normal (applies to non-numeri c results) [facility] ([facility]) Red Blood Count 4.46 10 4.30-6.10 Normal (applies to non-numeric results) [facility]) Hemoglobin 13.6 g/dL 13.5-17.5 Normal (applies to non-numeric resul ts) [facility]) Hematocrit 40.3 % 42.0-52.0 Below low normal [facility]) Mean Corpuscular Volume 90.4 fl 80.0-96.0 Normal ( applies to non-numeric results) [facility]) Mean Corpuscular Hemoglobin 30.5 pg 27.0-33.0 Norm al (applies to non-numeric results) [facility]) Red Cell Distribution Width 14.5 % 11.5-14.5 Norm al (applies to non-numeric results) [facility]) Platelet Count, Automated 229 10 150-450 Normal (applies to non-numeric results) [facility]) Mean Corpuscular HGB Conc 33.7 g/dL 32.0-36.5 Normal (applies to non-numeric results) [facility] ([facility]) Neutrophils % 85.1 % 36.0-66.0 Above high normal [facility] ([facility]) Lymph % 12.5 % 24.0-44.0 Below low normal [facility] ( [facility]) Bowie % 1.6 % 2.0-8.0 Below low normal [facility] ([facility]) Eos % 0.0 % 0.0-3.0 Normal (applies to non-numeric resul ts) [facility] ([facility]) Immature Granulocyte % 0.4 % 0-3.0 Normal (applies to non-n umeric results) [facility] ([facility]) Baso % 0.4 % 0.0-1.0 Normal (applies to non-numeric resul ts) [facility] ([facility]) Nucleated Red Blood Cell % 0.0 % 0-0 Normal (applies to n on-numeric results) [facility] ([facility]) Bowie # 0.1 10 0.0-0.8 Normal (applies to non-numeric resul ts) [facility] ([facility]) Lymph # 0.6 10 1.5-5.0 Below low normal [facility] ( [facility]) Neutrophils # 4.2 10 1.5-8.5 Normal (applies to non-numeric re sults) [facility] ([facility]) Baso # 0.0 10 0.0-0.2 Normal (applies to non-numeric resul ts) [facility] ([facility]) Eos # 0.0 10 0.0-0.5 Normal (applies to non-numeric resul ts) [facility] ([facility]) ID Date Data Source [id number] 04/14/2021 09:06:00 AM EDT [facility] ([facility]) Name Value Range Interpretation Code Description Data Caitlin rce(s) Supporting Document(s) Surgical pathology study Laboratory test result [facility] ([facility]) FINAL DIAGNOSIS Neck mass, excision: Benign skin [...] does not reveal any well-defined mass/lesion. Multiple artists' booking representative sections are submitted in (A1-A4), (A5) contains artists' booking representative from the ad ditional mature adipose tissue fragments. - 04/14/2021 - 1505 Signed Virginia Alamo MD 04/15/20211321 ID Date Data Source [id number] 04/09/2021 11:05:00 AM EDT [facility] Name Value Range Interpretation Code Description Data Caitlin rce(s) Supporting Document(s) SARS-CoV-2 (COVID-19) RNA [Presence] in Respiratory specimen by PAULIE with probe detection Not Detected [facility] This lab was ordered by [facility] and reported by [employer]. ID Date Data Source [id number] 02/20/2021 02:28:25 PM EDT [facility], PCName: Jonnathan morales SmadesDOB: 1955Provider: Theresa Matthew: 02/20/2021 Chief Complaintlow back and bilateral leg pain Chief Complaint 2NYSW VAS PAIN Established: VADIM completing section: DAMASO Maria History of Present IllnessRecent test/procedures: Patient was asked and denies having any tests since their last visit. Patient was asked and denies being seen by any Physicians since their last visit. The patient was last seen by a [facility] provider on 01/23/2021. At today's visit patient presents with their Self Implanted Devices The patient does not have any implanted devices. The patient does not have a glucose monitoring device. Patient is not currently working. The patient is being seen for a post block examination. The date of onset of symptoms is approximately Yrs. Pain Duration: YEARS Pain Quality: (Nociceptive) sharp and stabbing Timing: intermittent. Palliation: block and opioid analgesics Exacerbating: bending, lifting, standing, twisting and walking Pain Score: a current pain level of 6/10. Condition type: The patient is being seen for a chronic condition. PAIN LOCATION: the pain is located in the low back . - Nerve Block: Pertinent Information LUMBAR, INTERLAMINAR (STEROID INJECTION). Targeting the L5 S1 level . 50 % of pain relief was provided which is ongoing. Allows patient to increase activity and functionality. (01/23/2021) INTERVAL EVENTS: include . Maycol is here to follow-up on low back and bilateral leg pain. He reports approximately 50% at least relief from the lumbar interlaminar injection at L5-S1. He states that mowing the lawn, riding in his truck or doing stairs has been much easier with less pain. He still follows up with his pain management clinic for medication management about every 3 months and they prescribe Percocet for him. Active Problems 1. Chronic low back pain (724.2,338.29) (M54.5,G89.29) 2. 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 Lumbar disc herniation (722.10) (M51.26) 4. Lumbar radiculopathy (724.4) (M54.16) 5. Lumbar spondylosis (721.3) (M47.816) 6. Sacroiliitis (720.2) (M46.1) Allergies adenosine Anaphylaxis; Cardiac arrest; Recorded By: Henry Stockton; 04/25/2019 2:16:54 PM Morphine Derivatives Itching; Recorded By: Henry Stockton; 04/25/2019 2:16:54 PMDenied Adhesive Tape Recorded By: Henry Stockton; 04/25/2019 2:16:54 PM Iodinated Contrast Media Recorded By: Henry Stockton; 04/25/2019 2:16:54 PM Latex Recorded By: Henry Stockton; 04/25/2019 2:16:54 PM Current Meds amLODIPine Besylate 10 MG Oral Tablet;Therapy: [id number] to Recorded Aspirin 81 MG Oral Tablet Delayed Release; TAKE 1 TABLET DAILY DIRECTED;Therapy: (Recorded:90Vyz2259) to Recorded Lipitor 20 MG Oral Tablet;Therapy: (Recorded:13Zxn4230) to Recorded Percocet 5-325 MG Oral Tablet;Therapy: (Recorded:63Qfu2199) to RecordedLD-02/20/21-6:00AM Ventolin HFA 108 (90 Base) MCG/ACT Inhalation Aerosol Solution;Therapy: [id number] to Recorded Past Medical History History of anticoagulant therapy (V87.49) (Z92.29) 04/2019-Plavix 75mg, Dr. Schmid, . History of arthritis (V13.4) (Z87.39) Denied: History of coagulation defect History of hypertension (V12.59) (Z86.79) Histo ry of methicillin resistant Staphylococcus aureus infection (V12.04) (Z86.14) History of throat cancer (V10.02) (Z85.819) 07/2019 diagnosed Surgical History History of Cardiac catheterization with stent placement 12/2018 x4 Denied: History of Cardioverter defibrillator insertion History of Colon surgery 05/27/2020 History of Hip replacement 2008, bilateral History of Lumbar laminectomy 2008 Denied: History of Pacemaker insertion VitalsVital Signs Recorded: 42Kan6466 07:57AM Height: 5 ft 10 inWeight: 238 lb BMI Calculated: 34.15BSA Calculated: 2.25Systolic: 152, SittingDiastolic: 94, SittingHeart Rate: 84Respiration: 18Height measured w/wo shoes: w/shoesPain Scale: 6 Physical ExamGeneral: The patient is a well nourished/well developed, male, who is obese, who is in no acute distress and appears stated age. Gait and Station: Gait was normal. Lungs are clear to auscultation bilaterally Cardiovascular: Extremities without peripheral edema, auscultation of heart reveals S1, S2 regular rate and rhythm, without murmur.Lumbosacral Spine: Surgical incision, well healed surgical scar. - Palpation/Tenderness: Tenderness on palpation of the LEFT: paraspinal , but negative left sciatic notch and negative left sacroiliac joint. - Palpation/Tenderness: Tenderness on palpation of the RIGHT: paraspinal , but negative right sciatic notch and negative right sacroiliac joint. - ROM Flexion: was not restricted. - ROM Extension: was not restricted, was painful.Right Lower Extremity Motor:- Hip: 5/5 flexion, 5/5 extension- Knee: 5/5 flexion, 5/5 extension- Foot: 5/5 Plantar , 5/5 DorsiFlexionSpecial Tests: flip test was negative and negative facet challengeLeft Lower Extremity Motor:- Hip: 5/5 flexion, 5/5 extension- Knee: 5/5 flexion, 5/5 extension- Foot: 5/5 Plantar , 5/5 DorsiFlexionSpecial Tests: flip test was negative and negative facet challengeNeurological:Sensation Left Lower: normalSensation Right Lower: numbness lateral thigh to light touch . Psychological: Alert and oriented to person, place and time. Mood and affect are pleasant and appropriate. Judgement intact. Insight normal without delusions or hallucinations. Denies suicidal/homicidal ideation. Assessment 1. Chronic low back pain (724.2,338.29) (M54.5,G89.29) 2. 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 Lumbar disc herniation (722.10) (M51.26) 4. Lumbar radiculopathy (724.4) (M54.16) 5. Lumbar spondylosis (721.3) (M47.816) Plan 1. MIPS - Survey Evaluation Evaluation Status: Complete Done: [id number] Depression Screening - Patient's PHQ-9 score is: : N/A - PHQ-9 not performed todayHave you EVER received a Pneumococcal Vaccine...? : Yes - Patient has previously received a Pneumococcal vaccinationFLU - Have you received a flu shot in 2020 ? : No - Influenza not previously received due to patient declined or other patient reasonsBMI for Patients 18 and over : 25 or greater, BMI above normal parameters, follow-up plan documentedDo you use any kind of Tobacco? (smokes or uses smokeless tobacco): : Patient identified as a NON-Tobacco User<OBX.5.1><OBX.5.1.1>WOMEN </OBX.5.1.1><OBX.5.1.2> ANYONE >/= 65 - How many times in the past year have you had 4 or more</OBX.5.1.2></OBX.5.1> drinks in a day? : N/AMEN < 65 - How many times in the past year have you had 5 or more drinks in a day? : Zero 2. Follow-up in 3 months Follow Up Follow-up Status: Hold For - Scheduling Requested for: [id number] Appointment for 15 or 30 minutes : Schedule 15 minute appointment Medication:. The patient does not receive any medication prescriptions from this office. Treatment includes: PROCEDURE(S): The patient defers blocks/procedures at this time FOLLOW UP: The patient should have a follow up visit in 3 months. CONTINUE TREATMENT: Maycol will continue with the following:. Patient will follow up with their PCP. Miscellaneous: - ACTIVITY COUNSELING: Discussed use of stationary/recumbent bike and/or continue exercises and stretches patient may have learned at PT. Patient encouraged to increase daily physical activity including ergonomics and aerobic activity. - WEIGHT LOSS: Weight loss was discussed and encouraged. 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 Discussion/SummaryMaycol is a 65 yr old man with chronic low back and bilateral leg pain. He reports 50%+ relief from the lumbar interlaminar injection at L5-S1 done on 01/23/2021. He is able to mow his lawn, ride or drive in car, and climb stairs easier with less pain. He is still seeing pain management in [place] who prescribes his oxycodone. He has severe OA in right knee and is trying to put off surgery for as long as possible, but when he does, he is going to see his surgeon in [place]. He goes to [place] for the [place]. He leaves around early June. He reports trouble with exercise due to his right knee pain. Weight loss encouraged. He sees his PCP every 3 months for HTN checks and labs. His BP was high today. He will get in to see us early May for evaluation of need for repeat block before he leaves for the winter. Call with any concerns or questions before he follows up then. Signatures Electronically signed by : BASILIO Trammell; Feb 20 2021 8:22AM EST (Author) Electronically signed by : Shani Porter MD; Feb 20 2021 2:28PM EST Name Value Range Interpretation Code Description Data Caitlin rce(s) Supporting Document(s) ID Date Data Source [id number] 02/02/2021 05:31:51 PM EDT [facility] PCName: Maycol MishraDOB: 1955Provider: Jaylen HernandezJOE: 02/02/2021 Reason For VisitStecarmen Mishra is here today for Right Knee. Maycol had his second Covid vaccine on 11/21/20. Maycol Mishra is an established patient here for follow up. Patient presents with a constant 6/10 ache laterally. Minimal swelling. Managing with Percocet, and a compression sleeve. Denies physical therapy. Denies use of an ambulatory aid. Patient is retired. PlanHPI:This 65-year-old is seen in followup today for the right knee. We injected him back in September and he says it gave him a solid 3 months of relief. He now notes a 6/10 ache and a constant lateral pain. He is using Percocet p.r.n. He would like another injection. He notes slight swelling. He is not in any therapy. He is not using a cane or a gait aid. He occasionally wears a compressive sleeve with some success. This is a chronic problem, gradually worsening for years. PHYSICAL EXAMINATION:The patient appears well-developed, well-nourished and in no significant acute distress. The patients body habitus computes to obese. Patient is oriented to person, place and time. The patients mood is appropriate to situation. The patients coordination is normal. The patient uses no assistive device. Examination of the right knee reveals no abnormalities of the skin. Posterior tibial pulse is present. Capillary refill is satisfactory. Compartments are soft. Marie's sign is negative. Swelling is mild. There is no discrete motor loss, although a diffuse weakness is present. The patient's gait is modestly antalgic. Sensation is normal to touch. Diffuse tenderness to palpation. There is knee effusion which is small. Standing alignment is neutral. Squat test is positive. ROM shows mild global loss. Extensor mechanism is intact. Stability tests negative unless noted.ASSESSMENT:1. Primary osteoarthritis, right knee. PLAN:Surgical and nonsurgical treatment options were reviewed with the patient. Options like medication, injection, viscosupplementation, and surgical options were reviewed. The patient understands these options exist, but wants to pursue injection. The procedure of knee injection was reviewed with the patient. The rationale for injection was reviewed. The potential risks of injection, including pain or infection, were reviewed with the patient.Procedure: After a review of risks and benefits and after obtaining the patient's consent, under sterile conditions, a mixture of 80 mg Depo-Medrol and 0.5% bupivacaine was injected into the right knee. Follow-up with me as scheduled for reconsideration of these options and potential for intervention. The patient may eventually become a candidate for surgical intervention, possibly in the form of knee arthroplasty if appropriate preoperative criteria can be met. The issue of weight control was reviewed with the patient. Several different methodologies, including nutritional changes, intermittent fasting, regular exercise, acquisition of increased lean muscle mass, and other methods, were reviewed with the patient. The patient was strongly encouraged to pursue weight loss both as a means to facilitate potential surgical intervention in the future, and improving current quality of life through improved pain control. The patient voiced a clear understanding of this important issue. Signatures Electronically signed by : Kendy Granados, ; Feb 02 2021 11:43AM EST Electronically signed by : Jaylen Hernandez M.D.; Feb 02 2021 5:31PM EST (Author) Name Value Range Interpretation Code Description Data Caitlin rce(s) Supporting Document(s) ID Date Data Source [id number] 12/31/2020 08:24:34 AM EDT [facility], PCName: Jonnathan morales SmadesDOB: 1955Provider: Arron Rivas: 12/30/2020 Chief ComplaintLow back pain and upper buttocks pain. 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 Self . Patient is not currently working. Implanted Devices The patient does not have any implanted devices. Glucose Monitor Device The patient does not have a glucose monitoring device. The patient is being seen for a follow-up with MD. History of Present IllnessHistory of Present Illness This is a 65-year-old gentleman with a history of prior laminectomy at L4-5 and L5-S1 who is currently receiving oxycodone from a pain clinic in [place] to manage his chronic back and upper buttocks pain. He is receiving interlaminar epidural steroid injections through our clinic following only modest benefit with previous radiofrequency ablations of the lumbar medial branch nerves. The patient's last interlaminar epidural steroid was performed at the L5-S1 level on 11/13/2020, and provided more than 50 percent improvement of his pain and is ongoing; although, the relief is beginning to wean to some extent. He is experiencing increased pain in the abdomen after undergoing a colostomy reversal. Mr. Mishra rates today's pain as a 7/10, on a good day a 6/10, and on a bad day a 9/10. He describes this pain as aching, sharp, and stabbing that radiates from the back into the upper buttocks. Her reports his pain exacerbates with standing and ambulation, while it improves to some extent with sitting. The patient denies any lower extremity weakness and bowel or bladder incontinence. Active Problems 1. Chronic low back pain (724.2,338.29) (M54.5,G89.29) 2. 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 Lumbar radiculopathy (724.4) (M54.16) 4. Lumbar spondylosis (721.3) (M47.816) 5. Sacroiliitis (720.2) (M46.1) Allergies adenosine Anaphylaxis; Cardiac arrest; Recorded By: Henry Stockton; 04/25/2019 2:16:54 PM Morphine Derivatives Itching; Recorded By: Henry Stockton; 04/25/2019 2:16:54 PMDenied Adhesive Tape Recorded By: Henry Stockton; 04/25/2019 2:16:54 PM Iodinated Contrast Media Recorded By: Henry Stockton; 04/25/2019 2:16:54 PM Latex Recorded By: Henry Stockton; 04/25/2019 2:16:54 PM Current Meds amLODIPine Besylate 10 MG Oral Tablet;Therapy: 54Wsr1178 to Recorded Aspirin 81 MG Oral Tablet Delayed Release; TAKE 1 TABLET DAILY DIRECTED;Therapy: (Recorded:89Hxr9120) to Recorded Lipitor 20 MG Oral Tablet;Therapy: (Johny rded:48Asy8513) to Recorded Percocet 5-325 MG Oral Tablet;Therapy: (Recorded:08Iuv2386) to RecordedLD12/30/20 Ventolin HFA 108 (90 Base) MCG/ACT Inhalation Aerosol Solution;Therapy: 55Pfz2463 to Recorded Past Medical History History of anticoagulant therapy (V87.49) (Z92.29) 04/2019-Plavix 75mg, Dr. Schmid, . History of arthritis (V13.4) (Z87.39) Denied: History of coagulation defect History of hypertension (V12.59) (Z86.79) History of methicillin resistant Staphylococcus aureus infection (V12.04) (Z86.14) History of throat cancer (V10.02) (Z85.819) 07/2019 diagnosed Surgical History History of Cardiac catheterization with stent placement 12/2018 x4 Denied: History of Cardioverter defibrillator insertion History of Colon surgery 05/27/2020 History of Hip replacement 2008, bilateral History of Lumbar laminectomy 2008 Denied: History of Pacemaker insertion VitalsVital Signs Recorded: 70Idj6170 08:59AM Height: 5 ft 9 inWeight: 237 lb BMI Calculated: 35BSA Calculated: 2.22Systolic: 140, SittingDiastolic: 97, SittingHeart Rate: 91Respiration: 20Temperature: 97.1 FHeight measured w/wo shoes: w/shoesPain Scale: 7Depression: 11 Physical ExamPhysical Exam:. This is a well-developed, well-nourished male in moderate distress who appears stated age, without the use of an assistive device. He is exquisitely tender in the abdomen. He is alert and oriented times 3 with normal speech and affect. Normal heart and lung examination. MSK Lumbar:Tenderness with palpation of the left side of the low back. Pain with rising from a seated to a standing position. Pain with back extension. 5/5 strength in all lower extremity muscle groups. Results/DataMRI scan of the lumbar spine obtained in 03/2019 reveals the patient is status post L4-5 and L5-S1 laminectomies on the left side. There is degenerative disc disease at L5-S1 with abutment of the left S1 nerve root, along with potential abutment of the L5 nerve roots in the foramen. Assessment 1. Lumbar radiculopathy (724.4) (M54.16) 2. Chronic low back pain (724.2,338.29) (M54.5,G89.29) 3. 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 Aspirin, Aspirin Products (Trans/Thor Lumb Inter/Para/Splanch/Stellate Procedure Patient education Status: Complete Done: 99Ccd0229Mawt patient RX 2. Block (Thoracic/Lumbar Interlaminar) ([facility]) Referral Procedure Procedure Status: Complete Done: [id number] Type : MedicareIs patient currently on a biologic? : NoReminder: : Place order for Anticoag: Aspirin Products Transforam- InterlamIs your patient taking aspirin for cardiac or stroke prevention...? : YesIs patient taking Aspirin > 81 mg...? : NoIs your patient on an Anticoagulant -OR- have Coagulopathy...? : NoSedation : YesArea: : LumbarEducate pt. on Covid Vaccine : Educate pt. that procedure w/steroid cannot be done within 14 days of Covid vaccine and to avoid vaccine 7 days after procedure.Block : Interlaminar (Epidural) (Steroid)Professional Institutional Asset Manager needed for block? : NoFront Desk Reminder: : Schedule the Status Post BlockPt weight: SODS: </= 450 lbs. HODS: </= 400 lbs. ENTER WEIGHT: : 237IF PT has Thrombocytopenia are platelets >/= 100,000 ? : NAAre you ordering pyhsical therapy...? : NoDoes patient require a Karis lift? : NoIs this an urgent request? : No - This is not an urgent requestCovid Risk : Low Risk 3. MIPS - Survey Evaluation Evaluation Status: Complete Done: 36Wzh1370Laymus Depression Screening - Patient's PHQ-9 score is: : 10 - 14 Moderate ...FUP plan requiredHave you EVER received a Pneumococcal Vaccine...? : Yes - Patient has previously received a Pneumococcal vaccinationFLU - Have you received a flu shot in 2020 ? : No - Influenza not previously received due to patient declined or other patient reasonsBMI for Patients 18 and over : 25 or greater, BMI above normal parameters, follow-up plan documentedDo you use any kind of Tobacco? (smokes or uses smokeless tobacco): : Patient identified as a NON-Tobacco User<OBX.5.1><OBX.5.1.1>WOMEN </OBX.5.1.1><OBX.5.1.2> ANYONE >/= 65 - How many times in the past year have you had 4 or more</OBX.5.1.2></OBX.5.1> drinks in a day? : N/AMEN < 65 - How many times in the past year have you had 5 or more drinks in a day? : Zero Patient was counseled on all of the following: Medications: The patient will not begin any new medications today. His medications are being prescribed by an outside clinic and will continue to be so. LOCKSTITCH HEMMER was consulted by my designee and I have reviewed the information presented to me and find no aberrant compliance issues. Patient has been informed. Nerve Blocks: The patient will be scheduled for an interlaminar epidural steroid injection at the L5-S1 level, as this previously provided considerable benefit. He denies a bleeding disorder and anticoagulant use. No clearance needed. NSAIDs, yes, aspirin 81 mg. Sedation, yes. NERVE BLOCK: The material risks, benefits, alternatives have been discussed with the patient, including no treatment. They include, but are not limited to, bleeding, bruising, infection, damage to targeted and non-targeted tissue, increased pain, nerve injury or other reaction, if severe, could lead to CVA, arrhythmias or . The patient was given procedure instructions and educational material for this specific procedure at the time of the visit. Patient denies current treatment with anti-coagulation therapy. - WEIGHT LOSS: Weight loss was discus sed and encouraged (BMI is 35). PHQ-9 Patient's PHQ-9 score was 10-14 suggesting a Moderate level of Depression. Symptoms were discussed with the pt and Tx options were reviewed. Follow-up on depression symptom level at next visit and determine whether patient requires Behavioral Health follow-up at that time. Discussion/SummaryThis is a 65-year-old male patient with low back pain that radiates into the bilateral buttocks. He does have nerve root impingement at the L5 and S1 levels seen on his most recent MRI scan, and he does have a history of prior laminectomies at the L4-5 and L4-S1 levels on the left side. The patient has experienced the most benefit from interlaminar epidural steroid injections, which were last performed at the end of 10/2020. I would like to bring him back for a repeat injection in the coming weeks following the confirmation from his general surgeon that his colostomy reversal has completely healed and that he is a candidate for undergoing epidural steroid injections again. Mr. Mishra will let us know what the timeframe for proceeding with injections will be following an appointment with his surgeon on 12/31/2020. The risks and benefits of the interlaminar epidural steroid injection were discussed with the patient at length today, and all of his questions were answered to their fullest extent. He is maintained on a fair amount of oxycodone, but at this point, this is being prescribed by an outside provider. I did provide the patient with information on a spinal cord stimulator trial today, as I feel that as his injections and medications fail to provide optimal relief in the future, which may by the case in the context of his post laminectomy syndrome, neuromodulation may be an optimal next step. Per the COVID-19 risk stratification table, he is low risk. ScribeNYSW Scribe Detail Form: Ibis Bledsoe . [facility] Signatures Electronically signed by : Jamari Rivas MD; Dec 31 2020 8:24AM EST (Author) Name Value Range Interpretation Code Description Data Caitlin rce(s) Supporting Document(s) ID Date Data Source [id number] 12/12/2020 10:20:00 AM EDT [facility] Name Value Range Interpretation Code Description Data Caitlin rce(s) Supporting Document(s) SARS-CoV-2 (COVID-19) RNA [Presence] in Respiratory specimen by PAULIE with probe detection Not Detected [facility] This lab was ordered by [facility] and reported by [employer] ID Date Data Source CBC with Differential 12/10/2020 12:00:00 AM EDT eCW1 ([facility]) Name Value Range Interpretation Code Description Data Caitlin rce(s) Supporting Document(s) 6.7 4.0-10.0 WHITE BLOOD COUNT eCW1 ([facility]) 4.61 4.30-6.10 RED BLOOD COUNT eCW1 ([facility]) 13.6 13.5-17.5 HEMOGLOBIN eCW1 ([facility], 1928–1983) 42.4 42.0-52.0 HEMATOCRIT eCW1 ([facility] 1928[facility]) 92.0 80.0-96.0 MEAN CORPUSCULAR VOLUME e CW1 ([facility]) 29.5 27.0-33.0 MEAN CORPUSCULAR HEMOGLOB IN eCW1 ([facility]) 256 150-450 PLATELET COUNT, AUTOMATED eCW1 ([facility]) 32.1 32.0-36.5 MEAN CORPUSCULAR HGB CONC eCW1 ([facility]) 13.9 11.5-14.5 RED CELL DISTRIBUTION WID TH eCW1 ([facility]) 19.0 24.0-44.0 LYMPH % eCW1 ([facility]) 69.5 36.0-66.0 NEUTROPHILS % eCW1 ([facility]) 9.7 2.0-8.0 MONO % eCW1 ([facility]) 1.3 0.0-3.0 EOS % eCW1 ([facility]) 0.4 0.0-1.0 BASO % eCW1 ([facility]) 1.3 1.5-5.0 LYMPH # eCW1 ([facility]) 0.7 0.0-0.8 MONO # eCW1 ([facility]) 4.6 1.5-8.5 NEUTROPHILS # eCW1 ([facility]) 0.0 0.0-0.2 BASO # eCW1 ([facility]) 0.1 0.0-0.5 EOS # eCW1 ([facility]) ID Date Data Source [id number] 12/10/2020 12:00:00 AM EDT eCW1 ([facility]) Name Value Range Interpretation Code Description Data Caitlin rce(s) Supporting Document(s) 2.1 1.8-2.4 MAGNESIUM LEVEL [facility] ([facility]) ID Date Data Source Comprehensive Metabolic Profile (CMP) 12/10/2020 12:00:00 AM EDT eCW1 ([facility]) Name Value Range Interpretation Code Description Data Caitlin rce(s) Supporting Document(s) 89 70-100 GLUCOSE, FASTING eCW1 ([facility]) 17 7-18 BLOOD UREA NITROGEN eCW1 ([facility]) 1.18 0.70-1.30 CREATININE FOR GFR eCW1 ([facility]) > 60.0 >49 GLOMERULAR FILTRATION RATE eCW 1 ([facility]) 136 136-145 SODIUM LEVEL eCW1 ([facility]) 4.1 3.5-5.1 POTASSIUM SERUM eCW1 ([facility]) 99 98-107 CHLORIDE LEVEL eCW1 ([facility]) 29 21-32 CARBON DIOXIDE LEVEL eCW1 (On license of [facility]) 15 7-37 AST/SGOT eCW1 ([facility]) 9.7 8.8-10.2 CALCIUM LEVEL eCW1 ([facility]) 86 45-117 ALKALINE PHOSPHATASE eCW1 (On license of [facility]) 0.7 0.2-1.0 BILIRUBIN,TOTAL eCW1 ([facility]) 21 12-78 ALT/SGPT eCW1 ([facility]) 3.6 3.2-5.2 ALBUMIN eCW1 ([facility]) 1.0 ALBUMIN/GLOBULIN RATIO eCW1 ([facility]) 7.3 6.4-8.2 TOTAL PROTEIN eCW1 ([facility]) ID Date Data Source [id number] 11/26/2020 09:01:00 AM EDT [facility] ([facility], ) Name Value Range Interpretation Code Description Data Caitlin rce(s) Supporting Document(s) FVC-Pred 4.98 L MEDENT ([facility], ) PDFReport Laboratory test result MEDENT ([facility], ) FVC-%Pred-Pre 66 L [facility] ([facility], ) FVC-LLN 3.99 L [facility] ([facility], ) FVC-Pre 3.29 L [facility] ([facility], ) Fev1-Pre 2.19 L [facility] ([facility], ) Fev1-%Pred-Pre 58 L [facility] ([facility], ) Fev1-Pred 3.73 L [facility] ([facility], ) Fev6-Pre 3.25 L [facility] ([facility], ) Fev1-LLN 2.89 L [facility] ([facility], ) Fev6-Pred 4.74 L [facility] ([facility], ) Fev6-LLN 3.78 L [facility] ([facility], ) Dnm8msd-Gotm 75 % MED[facility] ([facility]) Fev6-%Pred-Pre 68 L [facility] ([facility], ) Elv7ihr-Ihp 67 % [facility] ([facility], ) Jbj4jnq-%Pred-Pre 89 % [facility] ([facility]) Yll9roy-WIY 65 % [facility] ([facility]) Rtx8lbh-Hnp 99 % [facility] ([facility]) Wyj6zzr-%Pred-Pre 103 % [facility] ([facility]) Zwt1ozo-Fpmf 95 % [facility] ([facility]) FEFMax-Pred 9.37 L/E/sec [facility] ([facility], ) FEFMax-Pre 3.26 L/E/sec [facility] ([facility]) FEFMax-%Pred-Pre 34 L/E/sec [facility] ([facility]) Bzq0540-Hdyf 2.96 L/E/sec [facility] ([facility]) FEFMax-LLN 6.91 L/E/sec [facility] ([facility]) Xqx7448-%Pred-Pre 45 L/E/sec [facility] ([facility]) Tcn4353-ZKP 1.27 L/E/sec [facility] ([facility] ) Tln2226-Blq 1.36 L/E/sec [facility] ([facility]) Jaw0fpi3-Jnvu 78 % [facility] ([facility]) ExpTime-Pre 6.76 sec [facility] ([facility]) Ddk4vju3-Ebo 67 % [facility] ([facility]) Dbx6euv1-SVV 69 % [facility] ([facility]) Nni0ppx0-%Pred-Pre 85 % [facility] ([facility]) ID Date Data Source [id number] 11/10/2020 12:00:00 PM EDT [facility] Name Value Range Interpretation Code Description Data Caitlin rce(s) Supporting Document(s) SARS coronavirus 2 RNA [Presence] in Res piratory specimen by PAULIE with probe detection Negative [facility] This lab was ordered by [facility] on [address] a nd reported by [email or web address]. 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 Patient was asked and denies being seen by any Physicians since their last visit. At today's visit patient presents with their Self Implanted Devices The patient does not have any implanted devices. The patient does not have a glucose monitoring device. Patient is not currently working. The patient is being seen for a post block examination. The date of onset of symptoms is approximately Yrs. Pain Duration: YEARS Pain Quality: (Nociceptive) sharp and stabbing Timing: constant Palliation: block and opioid analgesics Exacerbating: bending, lifting, standing, twisting and walking Pain Score: a current pain level of 7/10. Condition type: The patient is being seen for a chronic condition. PAIN LOCATION: the pain is located in the low back . INTERVAL EVENTS: include . Patient did not get any relief from the SI joint injection. The pain is in his back and down both legs at times to posterior knee. Trouble ambulating, standing, sitting too long. He has pain management in [place] who gives him trigger point injections, as not seen in over a year due to covid. ASSOCIATED SYMPTOMS: include extremity weakness: , but no fecal incontinence and no urinary incontinence. Review of SystemsConstitutional: Normal. Eyes: Normal. ENT: normal. Cardiovascular: Normal. Respiratory: Normal. Gastrointestinal: Normal. Genitourinary: Normal. Musculoskeletal: lower back pain and limb pain. Integumentary: Normal. Neurological: leg weakness. Psychiatric: Normal. Endocrine: Normal. Hematologic/Lymphatic: Normal. Patient maintains at today's visit there has been no change in his/her hematologic history. I reviewed the above with the patient and I feel the ROS to be negative/normal other than low back, limb pain, leg weakness. Active Problems 1. Chronic low back pain (724.2,338.29) (M54.5,G89.29) 2. 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 Lumbar spondylosis (721.3) (M47.816) 4. Sacroiliitis (720.2) (M46.1) Allergies adenosine Anaphylaxis; Cardiac arrest; Recorded By: Henry Stockton; 04/25/2019 2:16:54 PM Morphine Derivatives Itching; Recorded By: Henry Stockton; 04/25/2019 2:16:54 PMDenied Adhesive Tape Recorded By: Henry Stockton; 04/25/2019 2:16:54 PM Iodinated Contrast Media Recorded By: Henry Stockton; 04/25/2019 2:16:54 PM Latex Recorded By: Henry Stockton; 04/25/2019 2:16:54 PM Current Meds amLODIPine Besylate 10 MG Oral Tablet;Therapy: [id number] to Recorded Aspirin 81 MG Oral Tablet Delayed Release; TAKE 1 TABLET DAILY DIRECTED;Therapy: (Recorded:28Hvy7535) to Recorded Lipitor 20 MG Oral Tablet;Therapy: (Recorded:51Yaa7644) to Recorded Percocet 5-325 MG Oral Tablet;Therapy: (Recorded:15Iwh8724) to RecordedAM 08/12/2020 Ventolin HFA 108 (90 Base) MCG/ACT Inhalation Aerosol Solution;Therapy: 32Xvj3455 to Recorded Past Medical History History of anticoagulant therapy (V87.49) (Z92.29) 04/2019-Plavix 75mg, Dr. Schmid, . History of arthritis (V13.4) (Z87.39) Denied: History of coagulation defect History of hypertension (V12.59) (Z86.79) History of methicillin resistant Staphylococcus aureus infection (V12.04) (Z86.14) History of throat cancer (V10.02) (Z85.819) 07/2019 diagnosed Surgical History History of Cardiac catheterization with stent placement 12/2018 x4 Denied: History of Cardioverter defibrillator insertion History of Colon surgery 05/27/2020 History of Hip replacement 2008, bilateral History of Lumbar laminectomy 2008 Denied: History of Pacemaker insertion Family Hist ory Family history of arthritis (V17.7) (Z82.61) Family history of arthritis (V17.7) (Z82.61) Family history of cardiac disorder (V17.49) (Z82.49) Family history of hypertension (V17.49) (Z82.49) Social History Consumes alcohol (V49.89) (Z72.89) Denied: History of Current every day smoker No illicit drug use Retired from employment VitalsVital Signs Recorded: 82Gum2214 09:23AM Height: 5 ft 9 inWeight: 254 lb BMI Calculated: 37.51BSA Calculated: 2.29Systolic: 140, SittingDiastolic: 88, SittingHeart Rate: 80Respiration: 16Temperature: 96.9 FO2 Saturation: 96Pain Scale: 7 Physical ExamGeneral: The patient is a well nourished/well developed, male, who is obese, who is in no acute distress and appears stated age. Eyes: Lids are atraumatic, no lesions, sclerae are anicteric. currently wearing eyeglasses. Ears, Nose, Mouth, Throat: Patient wearing a mask due to COVID-19. Respiratory: Normal chest expansion and respiratory effort. Gait and Station: Gait was normal. Lungs are clear to aus cultation bilaterally Cardiovascular: Extremities without peripheral edema, auscultation of heart reveals S1, S2 regular rate and rhythm, without murmur.Lumbosacral Spine: Surgical incision, well healed surgical scar. - Palpation/Tenderness: Tenderness on palpation of the LEFT: paraspinal , sciatic notch and sacroiliac joint. - Palpation/Tenderness: Tenderness on palpation of the RIGHT: paraspinal , sciatic notch and sacroiliac joint. - ROM Flexion: was restricted, was painful. - ROM Extension: was restricted, was painful.Right Lower Extremity Motor:- Hip: 4/4 flexion, 4/5 extension- Knee: 4/5 flexion, 4/5 extension- Foot: 5/5 Plantar , 5/5 DorsiFlexionSpecial Tests: flip test was negative and positive facet challenge Left Lower Extremity Motor:- Hip: 4/5 flexion, 4/5 extension- Knee: 4/5 flexion, 4/5 extension- Foot: 5/5 Plantar , 5/5 DorsiFlexionSpecial Tests: flip test was positive and positive facet challenge Neurological:Sensation Left Lower: normalSensation Right Lower: normal. Skin: Warm, dry, acyanotic. Psychological: Alert and oriented to person, place and time. Mood and affect are pleasant and appropriate. Judgement intact. Insight normal without delusions or hallucinations. Denies suicidal/homicidal ideation. Assessment 1. Lumbar radiculopathy (724.4) (M54.16) 2. Chronic low back pain (724.2,338.29) (M54.5,G89.29) 3. Lumbar disc herniation (722.10) (M51.26) 4. Lumbar spondylosis (721.3) (M47.816) Plan 1. Aspirin, Aspirin Products (Trans/Thor Lumb Inter/Para/Splanch/Stellate Procedure Patient education Status: Hold For - Scheduling Requested for: [id number] 2. Block (Thoracic/Lumbar Interlaminar) ([facility]) Referral Procedure Procedure Status: Hold For - Scheduling Requested for: [id number] Type : MedicaidIs patient currently on a biologic? : NoReminder: : Place order for Anticoag: Aspirin Products Transforam-InterlamIs your patient taking aspirin for cardiac or stroke prevention...? : YesIs patient taking Aspirin > 81 mg...? : NoIs your patient on an Anticoagulant -OR- have Coagulopathy...? : NoSedation : YesArea: : LumbarEducate pt. on Covid Vaccine : Educate pt. that procedure w/steroid cannot be done within 14 days of Covid vaccine and to avoid vaccine 3 days after procedure.Block : Interlaminar (Epidural) (Steroid)Professional Institutional Asset Manager needed for block? : NoFront Desk Reminder: : Schedule the Status Post BlockPt weight: SODS: </= 450 lbs. HODS: </= 400 lbs. ENTER WEIGHT: : 256IF PT has Thrombocytopenia are platelets >/= 100,000 ? : NAAre you ordering pyhsical therapy...? : NoDoes patient require a Karis lift? : NoIs this an urgent request? : No - This is not an urgent requestCovid Risk : Low Risk 3. Follow-up with MD Follow Up Follow-up Status: Hold For - Scheduling Requested for: [id number] blockProfessional Institutional Asset Manager Needed? : NoType of Follow-up needed: : Treatment Plan FMD: FMD - 4-6 weeks Medication:. The patient does not receive any medication prescriptions from this office. Treatment includes: GA OCEDURE(S): - Nerve Block Plan: I am ordering a, LUMBAR, INTERLAMINAR (STEROID INJECTION). Definitive levels to be determined by the interventional physician based on fluoroscopic imaging and symptomatology at the time of the procedure. This procedure is , targeting the L5 S1 level and under fluoroscopy with SEDATION. NERVE BLOCK: The material risks, benefits, alternatives have been discussed with the patient, including no treatment. They include, but are not limited to, bleeding, bruising, infection, damage to targeted and non-targeted tissue, increased pain, nerve injury or other reaction, if severe, could lead to CVA, arrhythmias or . The patient was given procedure instructions and educational material for this specific procedure at the time of the visit.- Bleeding Disorder: Patient denies having a bleeding disorder. - Anticoagulation therapy: ASPIRIN (Transforaminal or Interlaminar) Reduce / maintain aspirin to 81 mg if taking for cardiac or stroke prevention. Patient will be instructed at procedure when to resume. FOLLOW UP: The patient should have a follow up visit 4 weeks post block. CONTINUE TREATMENT: Maycol will continue with the following:. Patient will follow up with their PCP. 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 Discussion/SummaryMaycol is a 64 yr old man with chronic low back and bilateral leg pain. Also feels weakness in both his legs. He received no relief from right SI joint injection. Still having trouble with pain, ambulation, anything prolonged. I am ordering a lumbar interlaminar injection at L5-S1 with sedation. Aware can continue aspirin 81 mg before procedure. He will follow up with MD after to assess relief. Signatures Electronically signed by : BASILIO Trammell; Oct 17 2020 9:49AM EST (Author) Electronically signed by : Denver De La Garza MD; Oct 17 2020 10:24AM EST Name Value Range Interpretation Code Description Data Caitlin rce(s) Supporting Document(s) ID Date Data Source [id number] 10/13/2020 01:44:23 PM EST [facility], PCName: Maycol MishraDOB: 1955Provider: Chayo Hernandez: 10/13/2020 Reason For VisitSteven Danica is here today for right knee. Maycol has not had the Covid vaccine. Maycol Mishra is an established patient here for follow up. Cortisone injection lasted 3 months. His pain level is 8/10 managed with Percocet. He is not in PT and he is not using a gait aide. The patient has not had a course of physical therapy for greater than 4 weeks. Physical therapy and/or home exercise program has not been effective. The patient has not had a course of NSAIDs for greater than 4 weeks. The patient's pain is managed by pain management in [place]. Patient is retired. PlanHPI:This 64-year-old is here for follow-up of his right knee.We injected his right knee in June. The injection lasted about three months but then the pain came back. Now he describes 8 out of 10 pain, which is worse under the kneecap and medially. It hurts when he pushes off against resistance and with motion. It is better with rest but never resolves completely. He is not in therapy. He does not use a cane or a gait aid. He uses Percocet, which he gets through pain management in [place]. PHYSICAL EXAMINATION:The patient appears well-developed, well-nourished and in no significant acute distress. The patients body habitus computes to obese. Patient is oriented to person, place and time. The patients mood is appropriate to situation. The patients coordination is normal. Examination of the right knee reveals no abnormalities of the skin. Posterior tibial pulse is present. Capillary refill is s atisfactory. Compartments are soft. Marie's sign is negative. Swelling is mild. There is no discrete motor loss, although a diffuse weakness is present. The patient's gait is modestly antalgic. Sensation is normal to touch. Diffuse tenderness to palpation. There is knee effusion which is small. Standing alignment is neutral. Squat test is positive. ROM shows mild global loss. Extensor mechanism is intact. Stability tests negative unless noted. IMAGING:X- rays: Multiple views of the right knee, taken 18 months ago, show advanced degenerative change in three compartments of the right knee, with narrowing and osteophyte formation.ASSESSMENT:1. Primary osteoarthritis of right kneeIMPRESSION AND PLAN:Surgical and nonsurgical treatment options were reviewed with the patient. Options like medication, injection, visco supplementation, and surgical options were reviewed. The patient understands these options exist, but wants to pursue injection. The procedure of knee injection was reviewed with the patient. The rationale for injection was reviewed. The potential risks of injection, including pain or infection, were reviewed with the patient.Procedure: After obtaining the patient's consent, a mixture of 80 mg Depo-Medrol and 0.5% bupivacaine was injected into the right knee. Follow-up with me as scheduled for reconsideration of these options and potential for intervention. The patient may eventually become a candidate for surgical intervention, possibly in the form of knee arthroplasty, if appropriate criteria can be met.The issue of weight control was reviewed with the patient. Several different methodologies, including nutritional changes, intermittent fasting, regular exercise, acquisition of increased lean muscle mass, and other methods, were reviewed with the patient. The patient was strongly encouraged to pursue weight loss both as a means to facilitate potential surgical intervention in the future, and improving current quality of life through improved pain control. The patient voiced a clear understanding of this important issue. Signatures Electronically signed by : Amberly Mata, ; Oct 13 2020 10:27AM EST Electronically signed by : Jaylen Hernandez M.D.; Oct 13 2020 1:44PM EST (Author) Name Value Range Interpretation Code Description Data Caitlin rce(s) Supporting Document(s) ID Date Data Source [id number] 08/21/2020 12:00:00 PM EST [facility] Name Value Range Interpretation Code Description Data Caitlin rce(s) Supporting Document(s) SARS coronavirus 2 RNA [Presence] in Res piratory specimen by PAULIE with probe detection [facility] This lab was ordered by [facility] [place] and reported by [email or web address]. ID Date Data Source [id number] 08/20/2020 10:00:00 AM EST [facility] Name Value Range Interpretation Code Description Data Caitlin rce(s) Supporting Document(s) SARS coronavirus 2 RNA [facility] This lab was ordered by [facility] and reported by [facility]. ID Date Data Source Rapid Strep (Keysha Strep A+ CHARITY) 08/20/2020 12:00:00 AM EST eCW1 ([facility]) Name Value Range Interpretation Code Description Data Caitlin rce(s) Supporting Document(s) Yes Internal Controls Perform ed (Y/N) eCW1 ([facility]) Rapid Strep (Keysha Strep A+ FI A) eCW1 ([facility]) Negative Result (Positive/Negative) eCW 1 ([facility]) ID Date Data Source [id number] 08/13/2020 09:00:10 AM EST [facility], PCName: Jonnathan morales SmadesDOB: 1955Provider: Theresa Matthew: 08/12/2020 Chief Complaintlow back pain Chief Complaint 2NYSW VAS PAIN Established: VADIM completing section: VADIM [place] History of Present IllnessAt today's visit patient presents with their Self Implanted Devices The patient does not have any implanted devices. The patient does not have a glucose monitoring device. Patient is not currently working. The patient is being seen for a post block examination. The date of onset of symptoms is approximately Yrs. Pain Duration: YEARS Pain Quality: (Nociceptive) sharp and stabbing Timing: constant Palliation: block and opioid analgesics Exacerbating: bending, lifting, standing, twisting and walking Pain Score: a current pain level of 7/10. Condition type: The patient is being seen for a chronic condition. PAIN LOCATION: the pain is located in the low back . - Radio Frequency Pertinent Information: On a RADIO FREQUENCY ABLATION of the BILATERAL , LUMBAR FACET JOINTS under fluoroscopy as confirmed by previous successful medial branch nerve blocks. Targeting the L3 L4 level, L4 L5 level and L5 S1 level . 70 % of pain relief was provided which is ongoing. 70% ongoing relief on the left side, but NO relief on right side. INTERVAL EVENTS: include . Maycol is here to follow-up on low back pain. Reports the lumbar radiofrequency on the left side provided about 70% overall relief and the right side provided no relief. He had a colon surgery in May and has to have another one in the next 4 weeks. After that he plans on going to [place] for the winter. Review of SystemsConstitutional: Normal. Eyes: Normal. ENT: normal. Cardiovascular: Normal. Respiratory: Normal. Gastrointestinal: Normal. Genitourinary: Normal. Musculoskeletal: lower back pain. Integumentary: Normal. Neurological: Normal. Psychiatric: Normal. Endocrine: Normal. Hematologic/Lymphatic: Normal. Patient maintains at today's visit there has been no change in his/her hematologic history. I reviewed the above with the patient and I feel the ROS to be negative/normal other than low back pain. Active Problems 1. Chronic low back pain (724.2,338.29) (M54.5,G89.29) 2. 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 Lumbar spondylosis (721.3) (M47.816) Allergies adenosine Anaphylaxis; Cardiac arrest; Recorded By: Henry Stockton; 04/25/2019 2:16:54 PM Morphine Derivatives Itching; Recorded By: Henry Stockton; 04/25/2019 2:16:54 PMDenied Adhesive Tape Recorded By: Henry Stockton; 04/25/2019 2:16:54 PM Iodinated Contrast Media Recorded By: Henry Stockton; 04/25/2019 2:16:54 PM Latex Recorded By: Henry Stockton; 04/25/2019 2:16:54 PM Current Meds amLODIPine Besylate 10 MG Oral Tablet;Therapy: 74Ehs1445 to Recorded Aspirin 81 MG Oral Tablet Delayed Release; TAKE 1 TABLET DAILY DIRECTED;Therapy: (Recorded:50Ikz0460) to Recorded Atenolol 25 MG Oral Tablet;Therapy: (Recorded:48Ptx9705) to Recorded Lipitor 20 MG Oral Tablet;Therapy: (Recorded:89Ixt7310) to Recorded Percocet 5- 325 MG Oral Tablet;Therapy: (Recorded:21Deg5210) to RecordedAM 08/12/2020 Ventolin HFA 108 (90 Base) MCG/ACT Inhalation Aerosol Solution;Therapy: 31Ojv9274 to Recorded Past Medical History History of anticoagulant therapy (V87.49) (Z92.29) 04/2019-Plavix 75mg, Dr. Schmid, . History of arthritis (V13.4) (Z87.39) Denied: History of coagulation defect History of hypertension (V12.59) (Z86.79) History of methicillin resistant Staphylococcus aureus infection (V12.04) (Z86.14) History of throat cancer (V10.02) (Z85.819) 07/2019 diagnosed Surgical History History of Cardiac catheterization with stent placement 12/2018 x4 Denied: History of Cardioverter defibrillator insertion History of Colon surgery 05/27/2020 History of Hip replacement 2008, bilateral History of Lumbar laminectomy 2008 Denied: History of Pacemaker insertion Family History Family history of arthritis (V17.7) (Z82.61) Family history of arthritis (V17.7) (Z82.61) Family history of cardiac disorder (V17.49) (Z82.49) Family history of hypertension (V17.49) (Z82.49) Social History Consumes alcohol (V49.89) (Z72.89) Denied: History of Current every day smoker No illicit drug use Retired from employment VitalsVital Signs Recorded: 87Whl3915 08:15AM Height: 5 ft 9 inWeight: 278 lb BMI Calculated: 41.05BSA Calculated: 2.38Systolic: 134, SittingDiastolic: 84, SittingHeart Rate: 88Temperature: 97.2 F, TemporalHeight measured w/wo shoes: w/shoesPain Scale: 7 Physical ExamGeneral: The patient is a well nourished/well developed, male, who is obese, who is in no acute distress and appears stated age. Eyes: Lids are atraumatic, no lesions, sclerae are anicteric. Ears, Nose, Mouth, Throat: Patient wearing a mask due to COVID-19. Respiratory: Normal chest expansion and respiratory effort. Gait and Station: Gait was normal. Lungs are clear to auscultation bilaterally Cardiovascular: Extremities without peripheral edema, auscultation of heart reveals S1, S2 regular rate and rhythm, without murmur.Lumbosacral Spine: Surgical incision, well healed surgical scar. - Palpation/Tenderness: Tenderness on palpation of the LEFT: negative left paraspinal, negative left sciatic notch and negative left sacroiliac joint. - Palpation/Tenderness: Tenderness on palpation of the RIGHT: sacroiliac joint, but negative right paraspinal and negative right sciatic notch. - ROM Flexion: was not restricted, was painful. - ROM Extension: was not restricted, was painful.Right Lower Extremity Motor:- Hip: 5/5 flexion, 5/5 extension- Knee: 5/5 flexion, 5/5 extension- Foot: 5/5 Plantar , 5/5 DorsiFlexionSpecial Tests: flip test was negative, positive facet challenge , positive marisela, positive gaenslen's and positive thigh thrustLeft Lower Extremity Motor:- Hip: 5/5 flexion, 5/5 extension- Knee: 5/5 flexion, 5/5 extension- Foot: 5/5 Plantar , 5/5 DorsiFlexionSpecial Tests: flip test was negative, negative facet challenge, negative marisela, negative gaenslen's and negative thigh thrustNeurological:Sensation Left Lower: normalSensation Right Lower: numbness to right lateral thigh to light touch. Skin: Warm, dry, acyanotic. Psychological: Alert and oriented to person, place and time. Mood and affect are pleasant and appropriate. Judgement intact. Insight normal without delusions or hallucinations. Denies suicidal/homicidal ideation. Assessment 1. Chronic low back pain (724.2,338.29) (M54.5,G89.29) 2. Sacroiliitis (720.2) (M46.1) 3. Lumbar spondylosis (721.3) (M47.816) Plan 1. Stop: Atenolol 25 MG Oral Tablet 2. Aspirin, Aspirin Products other Procedures Management Patient education Status: Hold For - Scheduling Requested for: [id number] Review...: : Patient will be receiving a telephone call to review instructions again before their procedure.How should you take Aspirin...? : Maintain aspirin 81 mg per day for cardiac or stroke preventionAre you taking Aspirin for Cardiac or Stroke Prevention...? : YesAre you taking Asprin for pain or headache...? : NoImportant information regarding your appointment : If you cannot make your block appointment please call Triage for instruction regarding your aspirin.Aspirin Clearance Per Protocol : Aspirin clearance per protocol 3. Treatment Room SI w/Fluoro at [facility] ([facility]) Referral Procedure Treatment Status: Hold For - Scheduling Requested for: [id number] we get urgent authorization??? He is having surgery and then will be leaving for [facility] quest Type : MedicaidIs patient currently on a biologic? : NoIs patient taking Aspirin 325 mg or greater...? : NoIs your patient on an Anticoagulant -OR- have Coagulopathy...? : NoDoes Patient require a power screwdriver operator...? : Patient does not require a power screwdriver operator for this procedureLaterality : RightFront Desk Reminder: : Schedule the Status Post BlockDoes patient require a power screwdriver operator? : NoSI Joint Injection with Fluoro: : SIF = SI Joint with FluoroSchedule : Do not schedule within 7 days of any blockPatient must weigh 400 lbs or less. Enter weight : 278Is this an urgent SOS referral....? : No, this is not an urgent SOS referralDoes patient require a Karis lift? : NoCovid Risk : Low Risk Medication:. The patient does not receive any medication prescriptions from this office. Treatment includes: PROCEDURE(S): - Nerve Block Plan: I am ordering a, RIGHT, SI JOINT INJECTION (Diagnostic). Please see physical exam for the results of THREE of the following tests: KATLYN'S, THIGH THRUST, SI COMPRESSION, GAENSLAN'S TEST. , targeting the under fluoroscopy without sedation. NERVE BLOCK: The material risks, benefits, alternatives have been discussed with the patient, including no treatment. They include, but are not limited to, bleeding, bruising, infection, damage to targeted and non-targeted tissue, increased pain, nerve injury or other reaction, if severe, could lead to CVA, arrhythmias or . The patient was given procedure instructions and educational material for this specific procedure at the time of the visit.- Bleeding Disorder: Patient denies having a bleeding disorder. - Anticoagulation therapy:. Patient denies current treatment with anti-coagulation therapy. FOLLOW UP: (He may be in [place] by that time and if so I told him just to give us a call and report on how he is doing) The patient should have a follow up visit 4 weeks post block. CONTINUE TREATMENT: Maycol will continue with the following:. Patient will follow up with their PCP. 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 Discussion/SummaryMaycol is a 64-year-old man with chronic low back pain. He had a bilateral lumbar radiofrequency procedure and reports significant relief, approximately 70% on the left side, but no relief on the right side. He had colon surgery in May and has to have another one within the next 4 weeks. We did talk about doing a diagnostic right sacroiliac injection. He is interested in proceeding day like this done urgently because after his second surgery he plans on going to [place] for the winter. I will put that in order to see if we can get this done urgently and for follow-up he can give me a call and just report on how he is doing since the injection. Signatures Electronically signed by : BASILIO Trammell; Aug 12 2020 9:38AM EST (Author) Electronically signed by : Wilfredo Kenny MD; Aug 13 2020 9:00AM EST Name Value Range Interpretation Code Description Data Caitlin rce(s) Supporting Document(s) ID Date Data Source [id number] 07/14/2020 01:52:27 PM EST [facility], PCName: Maycol NardamanjulaDOB: 1955Provider: Chayo Hernandez: 07/14/2020 Reason For VisitSteven Danica is here today for Fup Right Knee.. Maycol Mishra is an established patient here for follow up. C/o constant pain random swelling and start up stiffness, last injection gave relief few a few months, using Percocet to manage pain throughout his whole body, using a pull up brace, no heat/ice. Patient is retired. PlanHPI:This 64-year-old is here for the right knee. He has constant pain in the right knee as well as random swelling and pain with start-up. He uses Percocet to manage his pain throughout his whole body. He is using a brace, which is a pull-up sleeve. He is not using a cane or an assistive device. He is not using heat or ice. He is hoping to get an injection today. We injected him back in January and that gave him a few months of relief. PHYSICAL EXAMINATION:The patient appears well-developed, well-nourished and in no significant acute distress. The [facility] body habitus computes to obese. Patient is oriented to person, place and time. The patients mood is appropriate to situation. The patients coordination is normal. The patient uses no assistive device. Examination of the right knee reveals no abnormalities of the skin. Posterior tibial pulse is present. Capillary refill is satisfactory. Compartments are soft. Marie's sign is negative. Swelling is mild. There is no discrete motor loss, although a diffuse weakness is present. The patient's gait is modestly antalgic. Sensation is normal to touch. Diffuse tenderness to palpation. There is knee effusion which is small. Standing alignment is neutral. Squat test is positive. ROM shows mild global loss. Extensor mechanism is intact. Stability tests negative unless noted.ASSESSMENT:1. Primary osteoarthritis, right knee. PLAN:Surgical and nonsurgical treatment options were reviewed with the patient. Options like medication, injection, viscosupplementation, and surgical options were reviewed. The patient understands these options exist, but wants to pursue injection. The procedure of knee injection was reviewed with the patient. The rationale for injection was reviewed. The potential risks of injection, including pain or infection, were reviewed with the patient.Procedure: After a review of risks and benefits and after obtaining the patient's consent, under sterile conditions, a mixture of 80 mg Depo-Medrol and 0.5% bupivacaine was injected into the right knee. Follow-up with me as scheduled for reconsideration of these options and potential for intervention. The patient may eventually become a candidate for surgical intervention, possibly in the form of knee arthroplasty if appropriate preoperative criteria can be met. The issue of weight control was reviewed with the patient. Several different methodologies, including nutritional changes, intermittent fasting, regular exercise, acquisition of increased lean muscle mass, and other methods, were reviewed with the patient. The patient was str ongly encouraged to pursue weight loss both as a means to facilitate potential surgical intervention in the future, and improving current quality of life through improved pain control. The patient voiced a clear understanding of this important issue. He has recently lost 50 pounds secondary to a recent diagnosis of throat cancer. He also had a colonoscopy and from what he describes, it sounds like he had a perforation at that time and went back in for surgery and wound up with an ostomy bag, which he still has. He has reduced his weight by 50 pounds. He is still pretty significantly overweight. We injected his right knee today and I will plan to see him in six months. He is a suboptimal surgical candidate. Signatures Electronically signed by : Kendy Granados, ; Jul 14 2020 9:17AM EST Electronically signed by : Jaylen Hernandez M.D.; Jul 14 2020 1:52PM EST (Author) Name Value Range Interpretation Code Description Data Caitlin rce(s) Supporting Document(s) ID Date Data Source [id number] 06/12/2020 05:22:00 AM EDT [facility] ([facility], ) Name Value Range Interpretation Code Description Data Caitlin rce(s) Supporting Document(s) Glucose, Fasting 107 mg/dL 70-100 Above high normal [facility] Creatinine For GFR 1.33 mg/dL 0.70-1.30 Above high normal [facility] ([facility]) Blood Urea Nitrogen 18 mg/dL 7-18 Normal (applies to non-nume robb results) [facility] ([facility]) Glomerular Filtration Rate 57.8 Normal (applies to n on-numeric results) [facility]) <content>Units are mL/min/1.73 m2</content>
<content></content>
<content>Chronic Kidney Disease Staging per NKF:</content>
<content></content>
<content>Stage I & II GFR >=60 Normal to Mildly Decreased</content>
<content>Stage III GFR 30- 59 Moderately Decreased</content>
<content>Stage IV GFR 15-29 Severely Decreased</content>
<content>Stage V GFR <15 Very Little GFR Left</content>
<content>ESRD GFR <15 on DIEING OUT MACHINE OPERATOR</content>
<content></content> Sodium Level 140 meq/L 136-145 Normal (applies to non-numeric res ults) [facility] ([facility]) Potassium Serum 3.7 meq/L 3.5-5.1 Normal (applies to non-numeric results) [facility] ([facility]) Anion Gap 7 meq/L 8-16 Below low normal [facility] ( [facility]) Carbon Dioxide Level 31 meq/L 21-32 Normal (applies to non-num shani results) [facility] ([facility]) Chloride Level 102 meq/L 98-107 Normal (applies to non-numeric r esults) [facility] ([facility]) Calcium Level 8.3 mg/dL 8.8-10.2 Below low normal [facility] ([facility]) Ast/Sgot 17 U/L 7-37 Normal (applies to non-numeric resul ts) [facility] ([facility]) Alt/SGPT 28 U/L 12-78 Normal (applies to non-numeric resul ts) [facility] ([facility]) Bilirubin,Total 0.7 mg/dL 0.2-1.0 Normal (applies to non-numeric results) [facility] ([facility]) Alkaline Phosphatase 58 U/L 45-117 Normal (applies to non-num shani results) [facility] ([facility]) Albumin 2.4 GM/DL 3.2-5.2 Below low normal [facility] ( [facility]) Total Protein 5.9 GM/DL 6.4-8.2 Below low normal [facility] ([facility]) Albumin/Globulin Ratio 0.7 Normal (applies to non-n umeric results) [facility] ([facility]) ID Date Data Source [id number] 06/12/2020 05:22:00 AM EDT [facility] ([facility]) Name Value Range Interpretation Code Description Data Caitlin rce(s) Supporting Document(s) White Blood Count 8.9 10 4.0-10.0 Normal (applies to non-numeri c results) [facility] ([facility]) Red Blood Count 3.58 10 4.30-6.10 Below low normal [facility] ([facility]) Hemoglobin 11.0 g/dL 13.5-17.5 Below low normal [facility] ( [facility]) Hematocrit 34.4 % 42.0-52.0 Below low normal [facility] ( [facility]) Mean Corpuscular Volume 96.1 fl 80.0-96.0 Above high normal [facility] ([facility]) Mean Corpuscular Hemoglobin 30.7 pg 27.0-33.0 Norm al (applies to non-numeric results) [facility] ([facility]) Mean Corpuscular HGB Conc 32.0 g/dL 32.0-36.5 Normal (applies to non-numeric results) [facility] ([facility]) Red Cell Distribution Width 13.0 % 11.5-14.5 Norm al (applies to non-numeric results) [facility] ([facility]) Platelet Count, Automated 236 10 150-450 Normal (applies to non-numeric results) [facility] ([facility]) Nucleated Red Blood Cell % 0.0 % 0-0 Normal (applies to n on-numeric results) [facility]) ID Date Data Source [id number] 06/11/2020 05:08:00 AM EDT [facility]) Name Value Range Interpretation Code Description Data Caitlin rce(s) Supporting Document(s) Glucose, Fasting 114 mg/dL 70-100 Above high normal M [facility]) Blood Urea Nitrogen 15 mg/dL 7-18 Normal (applies to non-nume robb results) [facility]) Creatinine For GFR 1.11 mg/dL 0.70-1.30 Normal (applies to non -numeric results) [facility]) Glomerular Filtration Rate Laboratory test result Normal (applies to non- numeric results) [facility]) <content>Units are mL/min/1.73 m2</content>
<content></content>
<content>Chronic Kidney Disease Staging per NKF:</content>
<content></content>
<content>Stage I & II GFR >=60 Normal to Mildly Decreased</content>
<content>Stage III GFR 30- 59 Moderately Decreased</content>
<content>Stage IV GFR 15-29 Severely Decreased</content>
<content>Stage V GFR <15 Very Little GFR Left</content>
<content>ESRD GFR <15 on DIEING OUT MACHINE OPERATOR</content>
<content></content> Sodium Level 138 meq/L 136-145 Normal (applies to non-numeric res ults) [facility] Potassium Serum 3.5 meq/L 3.5-5.1 Normal (applies to non-numeric results) [facility] ([facility], ) Chloride Level 104 meq/L 98-107 Normal (applies to non-numeric r esults) [facility] ([facility], ) Carbon Dioxide Level 32 meq/L 21-32 Normal (applies to non-num shani results) [facility] ([facility], ) Anion Gap 2 meq/L 8-16 Below low normal [facility] ) Calcium Level 8.9 mg/dL 8.8-10.2 Normal (applies to non-numeric re sults) [facility] Ast/Sgot 18 U/L 7-37 Normal (applies to non-numeric resul ts) [facility] Alkaline Phosphatase 57 U/L 45-117 Normal (applies to non-num shani results) [facility] ([facility], ) Bilirubin,Total 0.7 mg/dL 0.2-1.0 Normal (applies to non-numeric results) [facility] ([facility], ) Alt/SGPT 29 U/L 12-78 Normal (applies to non-numeric resul ts) [facility] Albumin/Globulin Ratio 0.5 Normal (applies to non-n umeric results) [facility] ([facility], ) Albumin 2.3 GM/DL 3.2-5.2 Below low normal [facility] ( [facility]) Total Protein 6.7 GM/DL 6.4-8.2 Normal (applies to non-numeric re sults) [facility]) ID Date Data Source [id number] 06/11/2020 05:08:00 AM EDT [facility] ([facility]) Name Value Range Interpretation Code Description Data Caitlin rce(s) Supporting Document(s) White Blood Count 8.2 10 4.0-10.0 Normal (applies to non-numeri c results) [facility] ([facility]) Hemoglobin 11.8 g/dL 13.5-17.5 Below low normal [facility] ( [facility]) Red Blood Count 3.71 10 4.30-6.10 Below low normal [facility] ([facility]) Hematocrit 35.6 % 42.0-52.0 Below low normal [facility] ( [facility]) Mean Corpuscular Hemoglobin 31.8 pg 27.0-33.0 Norm al (applies to non-numeric results) [facility] ([facility]) Mean Corpuscular Volume 96.0 fl 80.0-96.0 Normal ( applies to non-numeric results) [facility] ([facility]) Red Cell Distribution Width 12.9 % 11.5-14.5 Norm al (applies to non-numeric results) [facility]) Mean Corpuscular HGB Conc 33.1 g/dL 32.0-36.5 Normal (applies to non-numeric results) [facility] ([facility]) Platelet Count, Automated 228 10 150-450 Normal (applies to non-numeric results) [facility]) Nucleated Red Blood Cell % 0.0 % 0-0 Normal (applies to n on-numeric results) [facility]) ID Date Data Source [id number] 06/10/2020 04:43:00 AM EDT [facility] ([facility]) Name Value Range Interpretation Code Description Data Caitlin rce(s) Supporting Document(s) Glucose, Fasting 99 mg/dL 70-100 Normal (applies to non-numeric results) [facility] ([facility]) Glomerular Filtration Rate Laboratory test result Normal (applies to non- numeric results) [facility]) <content>Units are mL/min/1.73 m2</content>
<content></content>
<content>Chronic Kidney Disease Staging per NKF:</content>
<content></content>
<content>Stage I & II GFR >=60 Normal to Mildly Decreased</content>
<content>Stage III GFR 30- 59 Moderately Decreased</content>
<content>Stage IV GFR 15-29 Severely Decreased</content>
<content>Stage V GFR <15 Very Little GFR Left</content>
<content>ESRD GFR <15 on DIEING OUT MACHINE OPERATOR</content>
<content></content> Creatinine For GFR 1.14 mg/dL 0.70-1.30 Normal (applies to non -numeric results) [facility] ([facility]) Blood Urea Nitrogen 14 mg/dL 7-18 Normal (applies to non-nume robb results) [facility] ([facility]) Sodium Level 142 meq/L 136-145 Normal (applies to non-numeric res ults) [facility] ([facility]) Chloride Level 104 meq/L 98-107 Normal (applies to non-numeric r esults) [facility] ([facility]) Potassium Serum 3.7 meq/L 3.5-5.1 Normal (applies to non-numeric results) [facility] ([facility]) Calcium Level 8.3 mg/dL 8.8-10.2 Below low normal [facility] ([facility]) Carbon Dioxide Level 31 meq/L 21-32 Normal (applies to non-num shani results) [facility]) Anion Gap 7 meq/L 8-16 Below low normal [facility] ( [facility]) ID Date Data Source [id number] 06/10/2020 04:43:00 AM EDT [facility]) Name Value Range Interpretation Code Description Data Caitlin rce(s) Supporting Document(s) White Blood Count 5.3 10 4.0-10.0 Normal (applies to non-numeri c results) [facility] ([facility]) Hemoglobin 11.4 g/dL 13.5-17.5 Below low normal [facility] ( [facility]) Red Blood Count 3.71 10 4.30-6.10 Below low normal [facility] ([facility]) Hematocrit 35.7 % 42.0-52.0 Below low normal [facility] Mean Corpuscular Volume 96.2 fl 80.0-96.0 Above high normal [facility] ([facility]) Mean Corpuscular Hemoglobin 30.7 pg 27.0-33.0 Norm al (applies to non-numeric results) [facility] ([facility]) Mean Corpuscular HGB Conc 31.9 g/dL 32.0-36.5 Below low normal [facility] ([facility]) Platelet Count, Automated 236 10 150-450 Normal (applies to non-numeric results) [facility] ([facility]) Red Cell Distribution Width 13.1 % 11.5-14.5 Norm al (applies to non-numeric results) [facility] ([facility]) Nucleated Red Blood Cell % 0.0 % 0-0 Normal (applies to n on-numeric results) [facility] ([facility]) ID Date Data Source [id number] 06/09/2020 04:50:00 AM EDT [facility] ([facility]) Name Value Range Interpretation Code Description Data Caitlin rce(s) Supporting Document(s) Red Blood Count 3.63 10 4.30-6.10 Below low normal [facility] ([facility]) White Blood Count 4.7 10 4.0-10.0 Normal (applies to non-numeri c results) [facility] ([facility]) Hemoglobin 11.1 g/dL 13.5-17.5 Below low normal [facility] ( [facility]) Hematocrit 35.1 % 42.0-52.0 Below low normal [facility]) Mean Corpuscular Hemoglobin 30.6 pg 27.0-33.0 Norm al (applies to non-numeric results) [facility]) Mean Corpuscular Volume 96.7 fl 80.0-96.0 Above high normal [facility] ([facility]) Mean Corpuscular HGB Conc 31.6 g/dL 32.0-36.5 Below low normal [facility] ([facility]) Platelet Count, Automated 232 10 150-450 Normal (applies to non-numeric results) [facility]) Nucleated Red Blood Cell % 0.0 % 0-0 Normal (applies to n on-numeric results) [facility] ([facility]) Red Cell Distribution Width 13.0 % 11.5-14.5 Norm al (applies to non-numeric results) [facility]) ID Date Data Source [id number] 06/09/2020 04:50:00 AM EDT [facility]) Name Value Range Interpretation Code Description Data Caitlin rce(s) Supporting Document(s) Glucose, Fasting 99 mg/dL 70-100 Normal (applies to non-numeric results) [facility] ([facility]) Blood Urea Nitrogen 19 mg/dL 7-18 Above high normal [facility] ([facility]) Glomerular Filtration Rate Laboratory test result Normal (applies to non- numeric results) [facility]) <content>Units are mL/min/1.73 m2</content>
<content></content>
<content>Chronic Kidney Disease Staging per NKF:</content>
<content></content>
<content>Stage I & II GFR >=60 Normal to Mildly Decreased</content>
<content>Stage III GFR 30- 59 Moderately Decreased</content>
<content>Stage IV GFR 15-29 Severely Decreased</content>
<content>Stage V GFR <15 Very Little GFR Left</content>
<content>ESRD GFR <15 on DIEING OUT MACHINE OPERATOR</content>
<content></content> Creatinine For GFR 1.14 mg/dL 0.70-1.30 Normal (applies to non -numeric results) [facility] ([facility]) Sodium Level 139 meq/L 136-145 Normal (applies to non-numeric res ults) [facility] Chloride Level 106 meq/L 98-107 Normal (applies to non-numeric r esults) [facility] Potassium Serum 3.7 meq/L 3.5-5.1 Normal (applies to non-numeric results) [facility] ([facility]) Anion Gap 3 meq/L 8-16 Below low normal [facility]) Calcium Level 8.7 mg/dL 8.8-10.2 Below low normal [facility] ([facility]) Carbon Dioxide Level 30 meq/L 21-32 Normal (applies to non-num shani results) [facility]) ID Date Data Source [id number] 06/08/2020 04:12:00 AM EDT [facility] ([facility]) Name Value Range Interpretation Code Description Data Caitlin rce(s) Supporting Document(s) Glucose, Fasting 101 mg/dL 70-100 Above high normal [facility] ([facility]) Blood Urea Nitrogen 20 mg/dL 7-18 Above high normal [facility] ([facility]) Glomerular Filtration Rate Laboratory test result Normal (applies to non- numeric results) [facility] ([facility]) <content>Units are mL/min/1.73 m2</content>
<content></content>
<content>Chronic Kidney Disease Staging per NKF:</content>
<content></content>
<content>Stage I & II GFR >=60 Normal to Mildly Decreased</content>
<content>Stage III GFR 30- 59 Moderately Decreased</content>
<content>Stage IV GFR 15-29 Severely Decreased</content>
<content>Stage V GFR <15 Very Little GFR Left</content>
<content>ESRD GFR <15 on DIEING OUT MACHINE OPERATOR</content>
<content></content> Creatinine For GFR 1.16 mg/dL 0.70-1.30 Normal (applies to non -numeric results) [facility] ([facility]) Sodium Level 142 meq/L 136-145 Normal (applies to non-numeric res ults) [facility] ([facility]) Potassium Serum 4.0 meq/L 3.5-5.1 Normal (applies to non-numeric results) [facility] ([facility]) Chloride Level 107 meq/L 98-107 Normal (applies to non-numeric r esults) [facility] Calcium Level 8.1 mg/dL 8.8-10.2 Below low normal [facility] ([facility]) Anion Gap 2 meq/L 8-16 Below low normal [facility] Carbon Dioxide Level 33 meq/L 21-32 Above high normal [facility] ID Date Data Source [id number] 06/07/2020 05:12:00 AM EDT [facility] ([facility]) Name Value Range Interpretation Code Description Data Caitlin rce(s) Supporting Document(s) Blood Urea Nitrogen 21 mg/dL 7-18 Above high normal [facility] ([facility]) Glucose, Fasting 113 mg/dL 70-100 Above high normal [facility] ([facility]) Sodium Level 141 meq/L 136-145 Normal (applies to non-numeric res ults) [facility] ([facility]) Glomerular Filtration Rate Laboratory test result Normal (applies to non- numeric results) [facility] ([facility]) <content>Units are mL/min/1.73 m2</content>
<content></content>
<content>Chronic Kidney Disease Staging per NK[facility]:</content>
<content></content>
<content>Stage I & II GFR >=60 Normal to Mildly Decreased</content>
<content>Stage III GFR 30- 59 Moderately Decreased</content>
<content>Stage IV GFR 15-29 Severely Decreased</content>
<content>Stage V GFR <15 Very Little GFR Left</content>
<content>ESRD GFR <15 on DIEING OUT MACHINE OPERATOR</content>
<content></content> Creatinine For GFR 1.17 mg/dL 0.70-1.30 Normal (applies to non -numeric results) [facility] Chloride Level 106 meq/L 98-107 Normal (applies to non-numeric r esults) [facility] ([facility]) Potassium Serum 4.7 meq/L 3.5-5.1 Normal (applies to non-numeric results) [facility] ([facility]) Carbon Dioxide Level 30 meq/L 21-32 Normal (applies to non-num shani results) [facility] ([facility]) Anion Gap 5 meq/L 8-16 Below low normal [facility] ( [facility]) Calcium Level 8.1 mg/dL 8.8-10.2 Below low normal [facility] ID Date Data Source [id number] 06/07/2020 05:12:00 AM EDT [facility] ([facility]) Name Value Range Interpretation Code Description Data Caitlin rce(s) Supporting Document(s) Red Blood Count 3.69 10 4.30-6.10 Below low normal [facility] ([facility]) White Blood Count 6.9 10 4.0-10.0 Normal (applies to non-numeri c results) [facility] ([facility]) Hematocrit 36.3 % 42.0-52.0 Below low normal [facility] ( [facility]) Hemoglobin 11.6 g/dL 13.5-17.5 Below low normal [facility] ( [facility]) Mean Corpuscular Volume 98.4 fl 80.0-96.0 Above high normal [facility] ([facility]) Mean Corpuscular HGB Conc 32.0 g/dL 32.0-36.5 Normal (applies to non-numeric results) [facility] ([facility]) Mean Corpuscular Hemoglobin 31.4 pg 27.0-33.0 Norm al (applies to non-numeric results) [facility] ([facility]) Red Cell Distribution Width 13.2 % 11.5-14.5 Norm al (applies to non-numeric results) [facility] ([facility]) Lymph % 10.3 % 24.0-44.0 Below low normal [facility] ( [facility]) Neutrophils % 78.7 % 36.0-66.0 Above high normal [facility] ([facility]) Platelet Count, Automated 209 10 150-450 Normal (applies to non-numeric results) [facility] ([facility]) Bowie % 9.9 % 0.0-5.0 Above high normal [facility] ([facility]) Eos % 0.0 % 0.0-3.0 Normal (applies to non-numeric resul ts) [facility] ([facility]) Baso % 0.1 % 0.0-1.0 Normal (applies to non-numeric resul ts) [facility] ([facility]) Immature Granulocyte % 1.0 % 0-3.0 Normal (applies to non-n umeric results) [facility] ([facility]) Nucleated Red Blood Cell % 0.0 % 0-0 Normal (applies to n on-numeric results) [facility] ([facility]) Bowie # 0.7 10 0.0-0.8 Normal (applies to non-numeric resul ts) [facility] ([facility]) Neutrophils # 5.4 10 1.5-8.5 Normal (applies to non-numeric re sults) [facility] ([facility]) Lymph # 0.7 10 1.5-5.0 Below low normal [facility] ( [facility]) Baso # 0.0 10 0.0-0.2 Normal (applies to non-numeric resul ts) [facility] ([facility]) Eos # 0.0 10 0.0-0.5 Normal (applies to non-numeric resul ts) [facility] ([facility]) ID Date Data Source [id number] 06/07/2020 01:58:00 AM EDT [facility] ([facility]) Name Value Range Interpretation Code Description Data Caitlin rce(s) Supporting Document(s) Glucose [Mass/volume] in Capillary blood by Glucometer 128 mg/dL 80-115 Above high normal [facility] ([facility]) ID Date Data Source [id number] 06/06/2020 03:54:00 PM EDT [facility] ([facility]) Name Value Range Interpretation Code Description Data Caitlin rce(s) Supporting Document(s) Surgical pathology study Laboratory test result [facility] ([facility]) FINAL DIAGNOSIS Sigmoid colon, segmental resection for perforated diverticulitis: Diverticulosis and diverticulitis. Perforated diverticulum is noted extending into pericolonic fat with abscess formation and overlying marked acute serositis. 06/10/2020 - 1349 CLINICAL DIAGNOSIS Perforated diverticula, perforated viscous 06/09/2020 - 1256 GROSS DIAGNOSIS Received in formalin labeled "portion of sigmoid colon" is an approximately 9 cm portion of colon, including mesenteric fat. Additional portions of fatty tissue, 4 x 3 x 2 cm in aggregate, are also noted in the container. The serosal lining is dull, focally hemorrhagic and partially covered by fibrinous exudate. Sectioning reveals multiple diverticula, extending into the pericolonic fat, focally causing a cystic/abscess-like lesion. Protective Signal Repairer Helper in two blocks. - 06/09/20201256 Signed Virginia Alamo MD 06/10/2020 1350 ID Date Data Source [id number] 06/06/2020 03:07:00 PM EDT [facility] ([facility]) Name Value Range Interpretation Code Description Data Caitlin rce(s) Supporting Document(s) Bacteria identified in Unspecified specimen by Anaerob e culture Laboratory test result [facility] ([facility], ) Comments: 1. PERITONEAL FLUID AEROBIC CU LTURE By: SG Time: 1505 Description if other: PERITONEAL FLUID Comments: 2. PERITONEAL FLUID ANAEROBIC CULTURE Time: 1506 ID Date Data Source [id number] 06/06/2020 03:07:00 PM EDT [facility] ([facility]) Name Value Range Interpretation Code Description Data Ciatlin rce(s) Supporting Document(s) Wound Culture Laboratory test result Normal (applies t o non-numeric results) [facility] ([facility], ) <content>FULL REPORT IN LAB NOTES ([facility]).</content>
<content></content>
<content>ORGANISM 1: E.COLI ESBL</content>
<content></content>
<content>QUANTITY OF GROWTH FEW</content>
<content></content>
<content></content>
<content>ORGAN ISM 1: E.COLI ESBL</content>
<content></content>
<content>E.COLI ESBL: REACTION</content>
<content>TRIMETHOPRIM/SULFAMETHOXAZOLE IV 160mg TMP & 800mg SMXq6h >=320 R</content>
<content> TRIMETHOPRIM/SULFAMETHOXAZOLE PO Bactrim DS Bid >=320 R</content>
<content>AMPICILLIN IV 500mg q6h >=32 R</content>
<content>AMPICILLIN PO 500mg q6h fasting >=32 R</content>
<content>GENTAMICIN IV 80mg q8h <=1 S</content>
<content>CEFAZOLIN IV 1gm q8h >=64 R</content>
<content>LEVOFLOXACIN IV 500mg qd >=8 R</content>
<content>LEVOFLOXACIN PO 250mg qd >=8 R</content>
<content>LEVOFLOXACIN PO 500mg qd >=8 R</content>
<content>TOBRAMYCIN IV 80mg q8h >=16 R</content>
<content>CEFTRIAXONE IV 1gm q24h >=64 R</content>
<content> CEFTAZIDIME IV 1gm q8h 16 R</content>
<content>AMPICILLIN/SULBACTAM IV 1.5g q6h >=32 R</content>
<content>PIPERACILLIN/TAZOBACTAM IV 2.25 gm q6h 8 S</content>
<content>AZTREONAM IV 1gm q8h >=64 R</content>
<content>ERTAPENEM IV 1gm qd <=0.5 S</content>
<content>MEROPENEM IV 1 gm q8h <=0.25 S</content>
<content> MEROPENEM IV 500 mg q8h <=0.25 S</content>
<content>TIGECYCLINE IV 50mg q12h <=0.5 S</content>
<content>CEFEPIME IV 1 gm q12h 8 R</content>
<content>CEFEPIME IV 2 gm q12h 8 R</content>
<content>EXTD BRD SPCTRM BETA LACTAMASE IV NEGATIVE FOR ESBL</content>
<content></content> Gram Stain Laboratory test result Normal (applies to non-n umeric results) [facility] ([facility], ) NO CELLS SEEN NO ORGANISMS SEEN ID Date Data Source [id number] 06/04/2020 09:16:00 AM EDT [facility] ([facility]) Name Value Range Interpretation Code Description Data Caitlin rce(s) Supporting Document(s) Surgical pathology study Laboratory test result [facility] ([facility]) FINAL DIAGNOSIS Colon, ascending polyp, biopsy: Tubular adenoma. 06/05/20201515 CLINICAL DIAGNOSIS Colon polyps 06/04/20201516 GROSS DIAGNOSIS Received in formalin labeled "biopsy ascending colon polyp" and consists of one fragment of amador tissue measuring 0.3 x 0.3 x 0.2 cm. All in one. -SV 06/04/20201516 Signed OMERO RUSSO MD 06/06/2020 1154 ID Date Data Source [id number] 05/30/2020 11:25:00 AM EDT [facility] Name Value Range Interpretation Code Description Data Caitlin rce(s) Supporting Document(s) SARS coronavirus 2 RNA [facility] This lab was ordered by [facility] and reported by [email or web address]. 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 Temperature: 97.6 passed COVID questionairePt presents for maxillary and mandibular final impressions w/ Custom tray. Pt has bone exposed on lower right ligual. Bone exposed about 1/2 to 1/3 inch in lenghth with about 2mm in width . Refer to OS (Dr. Burketts) for evaluation and treatment. Exteremly tender to touch. Additional PPE were used due to COVID-19. This included a minimum of a N95, a surgical mask, a hair covering, a face shield, proctective eyewear, and a gown.No complications. POI. Assisted by Apollo was cooperative.NV: final impression when healed.Pt. would like dentures before he moved to [place] for winter.Nishant Severino DDS by omkar (05/21/2020 12:29 PM): Tooth Notes and Watches: Assessment & Plan Problems:Added: Other and unspecified diseases of the oral soft tissues (ICD-528.9) (ICD10- M79.89)Medications:PERCOSETASPRINALFUZOSINPLAVIXLIPITORAMLODIPINEATENOLOLAllergi es:No Known Allergies (updated 08/02/2019) Orders:Oral Surgery Referral [CPT- 28458] Name Value Range Interpretation Code Description Data Caitlin rce(s) Supporting Document(s) ID Date Data Source [id number] 05/08/2020 10:44:14 AM EDT [facility] Current Problems: 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 Temperature: 97.6 passed COVID questionairePt presents for maxillary and mandibular impressions with Alginate. Custom tray will be fabricated in house.Additional PPE were used due to COVID-19. This included a minimum of a N95, a surgical mask, a hair covering, a face shield, proctective eyewear, and a gown.No complications. POI. Assisted by Apollo was cooperative.NV: final impressionNishant Severino DDS by omkar (05/08/2020 11:46 AM): Tooth Notes and Watches: Assessment & Plan Medications:PERCOSETASPRINALFUZOSINPLAVIXLIPITORAMLODIPINEATENOLOLAllergies:No Known Allergies (updated 08/02/2019) Name Value Range Interpretation Code Description Data Caitlin rce(s) Supporting Document(s) ID Date Data Source [id number] 05/08/2020 01:01:00 AM EDT [facility] Name Value Range Interpretation Code Description Data Caitlin rce(s) Supporting Document(s) SARS coronavirus 2 RNA [Presence] in Res piratory specimen by PAULIE with probe detection [facility] This lab was ordered by [facility] and reported by [email or web address]. ID Date Data Source [id number] 05/01/2020 01:49:00 AM EDT [facility] Name Value Range Interpretation Code Description Data Caitlin rce(s) Supporting Document(s) SARS coronavirus 2 RNA [Presence] in Res piratory specimen by PAULIE with probe detection [facility] This lab was ordered by [facility] and reported by [email or web address]. 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) (ICD10- K08.129)Current Medications: * PERCOSET * ASPRIN * ALFUZOSIN * PLAVIX * LIPITOR * AMLODIPINE * ATENOLOL Dental Chart: Procedures:Type - CDT Code - Description C - (D0330) Panoramic film (Performed by Nishant Severino DDS) Treatments:Type - CDT Code - Description T - (D5110) Complete denture - maxillary on Tooth # 1,2,3,4,5,6,7,8,9,10,11,12,13,14,15,16 (Performed by Nishant Severino DDS) T - (D5120) Complete denture - mandibular on Tooth # 17,18,19,20,21,22,23,24,25,26,27,28,29,30,31,32 (Performed by Nishant Severino DDS) Existing:Type - CDT Code - Description[E] Missing - Congenital On #10, #11, #21, #22, #23, #24, #25, #26, #27, #28, #31, #6, #7, #8, #9 Chart Notes:omkar (Apr 16 2020 4:04PM): Additional PPE requirements due to COVID-19 in the dental setting, N95, surgical mask, hair covering, gown, face shield. 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) (ICD10- K08.129)Current Medications: * PERCOSET * ASPRIN * ALFUZOSIN * PLAVIX * LIPITOR * AMLODIPINE * ATENOLOL Dental Chart: Procedures:Type - CDT Code - Description B - (D0330) Panoramic film (Performed by Nishant Severino DDS) Tooth Notes and Watches: Name Value Range Interpretation Code Description Data Caitlin rce(s) Supporting Document(s) ID Date Data Source [id number] 04/16/2020 11:31:04 AM EDT [facility], PCName: Jonnathan MishraDOB: 1955Provider: Heidy Alicea: 04/15/2020 Chief ComplaintLow back pain Chief Complaint 2NYSW VAS PAIN Established: MA completing section: hpowell History of Present IllnessRecent test/procedures: Patient was asked and denies having any tests since their last visit. Patient was asked and denies being seen by any Physicians since their last visit. The patient was last seen by a [facility] provider on 03/14/2020. At today's visit patient presents with their Self Patient is not currently working. The patient is being seen for a post block examination. The date of onset of symptoms is approximately Yrs. Pain Quality: (Nociceptive) sharp and stabbing Timing: constant Palliation: block and opioid analgesics Exacerbating: bending, lifting, standing, twisting and walking Pain Score: a current pain level of 8/10. - Nerve Block: Pertinent Information on a BILATERAL, LUMBAR, MEDIAL BRANCH NERVE BLOCK. Targeting the L3 L4 level, L4 L5 level and L5 S1 level . The patient had the 1st DX Medial Branch Block on 02/25/2020. The results of the first diagnostic Medial Branch Block produced >/= >80% % reduction of lumbar primary pain. Duration of relief and improvement of function is consistent with duration of local anesthetic. This result is consistent with the first diagnostic lumbar Medial Branch Block. This patient is a candidate for facet joint denervation with RF Medial Branch Neurotomy. INTERVAL EVENTS: include no significant change impacting patients medical condition. 2nd facet block provided pain relief for several weeks. Review of Systems Patient maintains at today's visit there has been no change in his/her hematologic history. I reviewed the above with the patient and I feel the ROS to be negative/normal other than musculoskelletal complaints. Active Problems 1. Chronic low back pain (724.2,338.29) (M54.5,G89.29) 2. 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 Lumbar spondylosis (721.3) (M47.816) Allergies adenosine Anaphylaxis; Cardiac arrest; Recorded By: Henry Stockton; 04/25/2019 2:16:54 PM Morphine Derivatives Itching; Recorded By: Henry Stockton; 04/25/2019 2:16:54 PMDenied Adhesive Tape Recorded By: Henry Stockton; 04/25/2019 2:16:54 PM Iodinated Contrast Media Recorded By: Henry Stockton; 04/25/2019 2:16:54 PM Latex Recorded By: Henry Stockton; 04/25/2019 2:16:54 PM Current Meds Aspirin 81 MG Oral Tablet Delayed Release; TAKE 1 TABLET DAILY DIRECTED;Therapy: (Recorded:[id number]) to Recorded Atenolol 25 MG Oral Tablet;Therapy: (Recorded:[id number]) to Recorded Lipitor 20 MG Oral Tablet;Therapy: (Recorded:[id number]) to Recorded Percocet 5-325 MG Oral Tablet;Therapy: (Recorded:[id number]) to RecordedLD-04/25/19-10:00AM Past Medical History History of anticoagulant therapy (V87.49) (Z92.29) 04/2019-Plavix 75mg, Dr. Schmid, . History of arthritis (V13.4) (Z87.39) Denied: History of coagulation defect History of hypertension (V12.59) (Z86.79) History of methicillin resistant Staphylococcus aureus infection (V12.04) (Z86.14) History of throat cancer (V10.02) (Z85.819) 07/2019 diagnosed Surgical History History of Cardiac catheterization with stent placement 12/2018 x4 Denied: History of Cardioverter defibrillator insertion History of Hip replacement 2008, bilateral History of Lumbar laminectomy 2008 Denied: History of Pacemaker insertion Family History Family history of arthritis (V17.7) (Z82.61) Family history of arthritis (V17.7) (Z82.61) Family history of cardiac disorder (V17.49) (Z82.49) Family history of hypertension (V17.49) (Z82.49) Social History Consumes alcohol (V49.89) (Z72.89) Denied: History of Current every day smoker No illicit drug use Retired from employment VitalsVital Signs Recorded: [id number] 09:43AM Height: 5 ft 9 inWeight: 268 lb BMI Calculated: 39.58BSA Calculated: 2.34Systolic: 140, SittingDiastolic: 90, SittingHeart Rate: 80Pulse Quality: NormalRespiration Quality: NormalRe spiration: 16Temperature: 98.2 F, TympanicHeight measured w/wo shoes: w/shoesPain Scale: 7 Physical ExamGeneral: The patient is a well nourished/well developed, male, who is obese, who is in mild distress and appears stated age. Eyes: Lids are atraumatic, no lesions, sclerae are anicteric. currently wearing eyeglasses. Ears, Nose, Mouth, Throat: external ears and nose without trauma. Respiratory: Normal chest expansion and respiratory effort. Gait and Station: Gait was normal. Lungs are clear to auscultation bilaterally Cardiovascular: Extremities without peripheral edema, auscultation of heart reveals S1, S2 regular rate and rhythm, without murmur.Lumbosacral Spine:- Inspection: normal appearance. No deformity, ecchymosis, erythema or swelling noted. Normal Lordosis.. - Palpation/Tenderness: Tenderness on palpation of the LEFT: paraspinal . - Palpation/Tenderness: Tenderness on palpation of the RIGHT: paraspinal . - ROM Extension: was restricted, was painful.Right Lower Extremity Motor:- Hip: 5/5 flexion- Knee: 5/5 flexion, 5/5 extension- Foot: 5/5 Plantar , 5/5 DorsiFlexionSpecial Tests: flip test was negative and positive facet challenge Left Lower Extremity Motor:- Hip: 5/5 flexion- Knee: 5/5 flexion, 5/5 extension- Foot: 5/5 Plantar , 5/5 DorsiFlexionSpecial Tests: flip test was negative and positive facet challenge Neurological:Sensation Left Lower: normalSensation Right Lower: normal. Skin: Warm, dry, acyanotic. Psychological: Alert and oriented to person, place and time. Mood and affect are pleasant and appropriate. Judgement intact. Insight normal without delusions or hallucinatio ns. Denies suicidal/homicidal ideation. Assessment 1. Lumbar spondylosis (721.3) (M47.816) 2. Chronic low back pain (724.2,338.29) (M54.5,G89.29) Plan 1. Block ([facility]) Referral Procedure Procedure Status: Complete Done: [id number] Type : Private (No Auth needed)Is patient currently on a biologic? : NoIs patient taking Aspirin 325 mg or greater...? : NoIs your patient on an Anticoagulant -OR- have Coagulopathy...? : NoSedation : YesBlock Laterality : RF NATHAN LT side first, then RT side in 1-2 weeks same MDArea : LumbarBlock : Medial Branch Radiofrequency (traditional thermal non-pulsed radi ofrequency as deemed appropriate by the interventional physician)Professional Institutional Asset Manager needed for block? : NoFront Desk Reminder: : Schedule the Status Post BlockIs this an MVP patient (for RF's only)...........?? : No, this is not an MVP PatientIs this a RF on a Patient with a Pacemaker/ICD...?? : NoPt weight: SODS: </= 450 lbs. HODS: </= 400 lbs. ENTER WEIGHT: : 265IF PT has Thrombocytopenia are platelets >/= 100,000 ? : NAAre you ordering pyhsical therapy...? : NoDoes patient require a Karis lift? : NoIs this an urgent request? : No - This is not an urgent request Medication:. Medication list was reviewed with the patient, and updates were made to reflect her current medication regimen. Allergy list was reviewed with patient, and any necessary changes were made. There are no changes in current medications at this visit. Patient instructed to continue current regimen. Treatment includes: RADIO FREQUENCY: Radio Frequency Pacer Information: Patient denies having a pacemaker / defibrillator. NERVE BLOCK: The material risks, benefits, alternatives have been discussed with the patient, including no treatment. They include, but are not limited to, bleeding, bruising, infection, damage to targeted and non- targeted tissue, increased pain, nerve injury or other reaction, if severe, could lead to CVA, arrhythmias or . The patient was given educational materials for this specific procedure at the time of the visit. The patient received a copy of our after care instructions.- Radio Frequency Detail I am ordering a, traditional thermal non-pulsed RADIO FREQUENCY ABLATION of the LEFT and RIGHT Targeting the L3 L4 level and L4 L5 level. This procedure will be done under SEDATION.- Bleeding Disorder: Patient denies having a bleeding disorder. Patient Denies Current treatment with anti-coagulation therapy. Nerve Block: The material risks, benefits, alternatives have been discussed with the patient, including no treatment. They include, but are not limited to, bleeding, bruising, infection, damage to targeted and non-targeted tissue, increased pain, nerve injury or other reaction, if severe, could lead to CVA, arrhythmias or . The patient was given educational materials at the time of the visit. The patient received a copy of our after care instructions.- Medical Necessity: RF Medical Necessity Criteria: The patient has undergone bilateral lumbar dual diagnostic same level medial branch facet blocks on the following dates. 02/24, 03/14/2020. This has resulted in a >80% % reduction in the patient's pain lasting for the length of the anesthetic. The patient has been able to increase functionality as indicated and/or decreased medication: for example, walk and stand longer. CONTINUE TREATMENT: Maycol will continue with the following:. Maycol is participating in a home exercise program and is encouraged to continue. 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 Discussion/SummaryPleasant 64 yr old male with low back pain. He has had 2 diagnostic facet blocks. The second provided pain relief for several weeks. He will proceed with scheduling a lumbar facet radiofrequency to be done with sedation. He is not on blood thinners, only takes ASA 81 mgs. Covid risk is low. He will follow up after the block. Signatures Electronically signed by : Amber Alicea NP; Apr 15 2020 3:50PM EST (Author) Electronically signed by : Amber Alicea NP; Apr 15 2020 3:51PM EST (Author) Electronically signed by : Wilfredo Kenny MD; Apr 16 2020 11:31AM EST Name Value Range Interpretation Code Description Data Caitlin rce(s) Supporting Document(s) Procedure Social History Code Duration Value Status Description Data Source(s ) Smoking 05/16/2021 12:00:00 AM EDT Former Smoker completed Former Smoker eCW1 ([facility]) Smoking 04/07/2021 12:00:00 AM EDT Former Smoker completed Former Smoker eCW1 ([facility]) Smoking 04/07/2021 12:00:00 AM EDT Former Smoker completed Former Smoker eCW1 ([facility]) Smoking 04/07/2021 12:00:00 AM EDT Former Smoker completed Former Smoker eCW1 ([facility]) Smoking 02/26/2021 12:00:00 AM EDT Patient is a former smoker completed Patient is a former smoker MEDENT ([facility]) Alcohol intake 02/12/2021 12:00:00 AM EDT Current drinker of al cohol (finding) completed Current drinker of alcohol (finding) [facility] Smoking 02/11/2021 12:00:00 AM EDT Former Smoker completed Former Smoker eCW1 ([facility]) Smoking 01/16/2021 12:00:00 AM EDT Former Smoker completed Former Smoker eCW1 ([facility]) Smoking 01/16/2021 12:00:00 AM EDT Former Smoker completed Former Smoker eCW1 ([facility]) Smoking 01/16/2021 12:00:00 AM EDT Former Smoker completed Former Smoker eCW1 ([facility]) Smoking 01/16/2021 12:00:00 AM EDT Former Smoker completed Former Smoker eCW1 ([facility]) Smoking 12/10/2020 12:00:00 AM EDT Former Smoker completed Former Smoker eCW1 ([facility]) Smoking 12/10/2020 12:00:00 AM EDT Former Smoker completed Former Smoker eCW1 ([facility]) Alcohol intake 12/04/2020 12:00:00 AM EDT Yes completed [facility] Cigarette pack-years 12/04/2020 12:00:00 AM EDT UNK completed [facility] Cigarettes smoked current (pack per day) - Reported 12/05/19 12:00:00 AM EDT UNK completed [facility] Smoking 12/04/2020 12:00:00 AM EDT Former smoker completed Former smoker [facility] Alcohol intake 10/23/2020 12:00:00 AM EST Yes completed [facility] Cigarette pack-years 10/23/2020 12:00:00 AM EST UNK completed [facility] Cigarettes smoked current (pack per day) - Reported 10/24/19 12:00:00 AM EST UNK completed [facility] Smoking 10/23/2020 12:00:00 AM EST Former smoker completed Former smoker [facility] Alcohol intake 09/25/2020 12:00:00 AM EST Yes completed [facility] Cigarette pack-years 09/25/2020 12:00:00 AM EST UNK completed [facility] Cigarettes smoked current (pack per day) - Reported 09/25/19 12:00:00 AM EST UNK completed [facility] Smoking 09/25/2020 12:00:00 AM EST Former smoker completed Former smoker [facility] Smoking 09/17/2020 12:00:00 AM EST Former Smoker completed Former Smoker eCW1 ([facility]) Smoking 09/17/2020 12:00:00 AM EST Former Smoker completed Former Smoker eCW1 ([facility]) Smoking 09/17/2020 12:00:00 AM EST Former Smoker completed Former Smoker eCW1 ([facility]) Smoking 09/17/2020 12:00:00 AM EST Former Smoker completed Former Smoker eCW1 ([facility]) Smoking 09/10/2020 12:00:00 AM EST Former Smoker completed Former Smoker eCW1 ([facility]) Alcohol intake 09/03/2020 12:00:00 AM EST Yes completed [facility] Cigarette pack-years 09/03/2020 12:00:00 AM EST UNK completed [facility] Cigarettes smoked current (pack per day) - Reported 09/03/19 12:00:00 AM EST UNK completed [facility] Smoking 09/03/2020 12:00:00 AM EST Former smoker completed Former smoker [facility] Alcohol intake 08/25/2020 12:00:00 AM EST Yes completed [facility] Cigarette pack-years 08/25/2020 12:00:00 AM EST UNK completed [facility] Cigarettes smoked current (pack per day) - Reported 08/25/19 12:00:00 AM EST UNK completed [facility] Smoking 08/25/2020 12:00:00 AM EST Former smoker completed Former smoker [facility] Smoking 08/19/2020 12:00:00 AM EST Former Smoker completed Former Smoker eCW1 ([facility]) Smoking 08/19/2020 12:00:00 AM EST Former Smoker completed Former Smoker eCW1 ([facility]) Smoking 08/19/2020 12:00:00 AM EST Former Smoker completed Former Smoker eCW1 ([facility]) Smoking 08/19/2020 12:00:00 AM EST Former Smoker completed Former Smoker eCW1 ([facility]) Smoking 06/06/2020 12:00:00 AM EDT Former Smoker completed Former Smoker eCW1 ([facility]) Vital Signs ID Date Data Source UNK Name Value Range Interpretation Code Description Data Source(s) Body temperature 97.2 [degF] 97.2 [degF] [facility] ([facility]) Body mass index (BMI) [Ratio] 31.3 kg/m2 31.3 k g/m2 [facility] ([facility]) [place] body weight 178 [lb_av] 178 [lb_av[facility] Body weight 104.782 kg 104.782 kg [facility] ([facility]) Body surface area Derived from formula 2.27 m2 2.27 m2 [facility] ([facility]) Systolic blood pressure 126 mm[Hg] 126 mm[Hg[facility] Diastolic blood pressure 85 mm[Hg] 85 mm[Hg] [facility] ([facility]) Heart rate 88 /min 88 /min [facility] ([facility]) Oxygen saturation in Arterial blood by Pulse oximetry 99 % 99 % [facility] ([facility]) Body height 72 [in_i] 72 [in_i] [facility] ([facility]) 6'0" Body weight 231.00 [lb_av] 231.00 [lb_av] [facility] ([facility]) Body weight 228.6 [lb_av] 228.6 [lb_av] eCW1 [facility] Body weight 103.69 kg 103.69 kg W1 ([facility]) Body height 72 [in_i] 72 [in_i] W1 ([facility]) Body mass index (BMI) [Ratio] 31.00 kg/m2 31.00 kg/m2 [facility] ([facility]) Heart rate 86 /min 86 /min eCW1 ([facility]) Respiratory rate 18 /min 18 /min eCW1 ([facility]) Body temperature 97.2 [degF] 97.2 [degF] eCW1 ( [facility]) Systolic blood pressure 138 mm[Hg] 138 mm[Hg] e CW1 ([facility]) Diastolic blood pressure 78 mm[Hg] 78 mm[Hg] eCW1 ([facility]) [place] body weight 178 [lb_av] 178 [lb_av] [facility] T ([facility], ) Systolic blood pressure 158 mm[Hg] 158 mm[Hg] M EDENT ([facility]) Diastolic blood pressure 90 mm[Hg] 90 mm[Hg] MED[facility] ([facility]) Heart rate 86 /min 86 /min [facility] ([facility]) Body height 72 [in_i] 72 [in_i] [facility] ([facility]) 6'0" Respiratory rate 20 /min 20 /min [facility] ( [facility]) Body temperature 97.6 [degF] 97.6 [degF] [facility] ([facility]) Body mass index (BMI) [Ratio] 30.9 kg/m2 30.9 k g/m2 [facility] ([facility]) Body weight 228.00 [lb_av] 228.00 [lb_av] [facility] ([facility]) Body weight 103.421 kg 103.421 kg [facility] ([facility]) Systolic blood pressure 132 mm[Hg] 132 mm[Hg] M EDENT ([facility]) Diastolic blood pressure 78 mm[Hg] 78 mm[Hg] [facility] ([facility]) Heart rate 68 /min 68 /min [facility] ([facility]) Body temperature 97.9 [degF] 97.9 [degF] [facility] Body height 72 [in_i] 72 [in_i] [facility] ([facility]) 6'0" [place] body weight 178 [lb_av] 178 [lb_av] [facility] ([facility]) Body surface area Derived from formula 2.25 m2 2.25 m2 [facility] ([facility]) Respiratory rate 18 /min 18 /[facility] Body mass index (BMI) [Ratio] 31.9 kg/m2 31.9 k g/m2 [facility] Body weight 106.596 kg 106.596 kg [facility] ([facility]) Body surface area Derived from formula 2.28 m2 2.28 m2 [facility] ([facility]) Body height 72 [in_i] 72 [in_i] [facility] Body weight 235.00 [lb_av] 235.00 [lb_av] [facility] ([facility]) [place] body weight 178 [lb_av] 178 [lb_av] [facility] ([facility]) Body weight 233.8 [lb_av] 233.8 [lb_av] eCW1 ([facility]) Body weight 106.05 kg 106.05 kg eCW1 ([facility]) Body height 72 [in_i] 72 [in_i] eCW1 ([facility]) Body mass index (BMI) [Ratio] 31.71 kg/m2 31.71 kg/m2 eCW1 ([facility]) Heart rate 73 /min 73 /min eCW1 ([facility]) Respiratory rate 18 /min 18 /min eCW1 ([facility]) Body temperature 98.0 [degF] 98.0 [degF] eCW1 ( [facility]) Systolic blood pressure 152 mm[Hg] 152 mm[Hg] e CW1 ([facility]) Diastolic blood pressure 82 mm[Hg] 82 mm[Hg] eCW1 ([facility]) Systolic blood pressure 138 mm[Hg] 138 mm[Hg] M EDENT ([facility]) Diastolic blood pressure 88 mm[Hg] 88 mm[Hg] [facility] ([facility]) Heart rate 88 /min 88 /min [facility] ([facility]) Respiratory rate 20 /min 20 /min [facility] ( [facility]) Body weight 236.00 [lb_av] 236.00 [lb_av] [facility] ([facility]) Body mass index (BMI) [Ratio] 32.0 kg/m2 32.0 k g/m2 [facility] ([facility]) [place] body weight 178 [lb_av] 178 [lb_av] [facility] ([facility]) Body weight 107.050 kg 107.050 kg [facility] ([facility]) Body height 72 [in_i] 72 [in_i] [facility] ([facility]) 6'0" Body surface area Derived from formula 2.29 m2 2.29 m2 [facility] ([facility]) Body mass index (BMI) [Ratio] 32.4 kg/m2 32.4 k g/m2 [facility] ([facility]) [place] body weight 178 [lb_av] 178 [lb_av] [facility] ([facility]) Body weight 239.00 [lb_av] 239.00 [lb_av] [facility] ([facility]) Body height 72 [in_i] 72 [in_i] [facility] ([facility]) 6'0" Body weight 108.410 kg 108.410 [facility] Body surface area Derived from formula 2.30 m2 2.30 m2 [facility] ([facility]) Heart rate 88 /min 88 /min [facility] ([facility]) Body weight 108.410 kg 108.410 [facility] Body surface area Derived from formula 2.30 m2 2.30 m2 [facility] ([facility]) Respiratory rate 20 /min 20 /min [facility] Diastolic blood pressure 90 mm[Hg] 90 mm[Hg] [facility] ([facility]) Body temperature 97.5 [degF] 97.5 [degF] [facility] ([facility]) Body height 72 [in_i] 72 [in_i] [facility] ([facility]) 6'0" Body weight 239.00 [lb_av] 239.00 [lb_av] [facility] ([facility]) Body mass index (BMI) [Ratio] 32.4 kg/m2 32.4 k g/m2 [facility] ([facility]) [place] body weight 178 [lb_av] 178 [lb_av] [facility] ([facility]) Systolic blood pressure 144 mm[Hg] 144 mm[facility]Hg] [facility] Respiratory rate 20 /min 20 /min [facility] ( [facility]) Body temperature 97.5 [degF] 97.5 [degF] [facility] ([facility]) Body height 72 [in_i] 72 [in_i] [facility] ([facility]) 6'0" Body weight 239.00 [lb_av] 239.00 [lb_av] [facility] ([facility]) Body mass index (BMI) [Ratio] 32.4 kg/m2 32.4 k g/m2 [facility] ([facility]) [place] body weight 178 [lb_av] 178 [lb_av] [facility] ([facility]) Body weight 108.410 kg 108.410 kg [facility] ([facility]) Body surface area Derived from formula 2.30 m2 2.30 m2 [facility] ([facility]) Body height 72 [in_i] 72 [in_i] [facility] ([facility]) 6'0" Body weight 238.00 [lb_av] 238.00 [lb_av] [facility] ([facility]) Body mass index (BMI) [Ratio] 32.3 kg/m2 32.3 k g/m2 [facility] ([facility]) [place] body weight 178 [lb_av] 178 [lb_av] [facility] ([facility]) Body weight 107.957 kg 107.957 kg MEDENT ([facility] ) Body surface area Derived from formula 2.29 m2 2.29 m2 [facility] ([facility], ) Oxygen saturation in Arterial blood by Pulse oximetry 95 % 95 % [facility] Systolic blood pressure 118 mm[Hg] 118 mm[Hg] [facility] Diastolic blood pressure 80 mm[Hg] 80 mm[Hg] [facility] Heart rate 84 /min 84 /min [facility] Body height 182.9 cm 182.9 cm [facility] Body weight 108.41 kg 108.41 kg [facility] Body mass index (BMI) [Ratio] 32.41 kg/m2 32.41 kg/m2 [facility] Body height 72 [in_i] 72 [in_i] W1 ([facility]) Body weight 236.6 [lb_av] 236.6 [lb_av] eCW1 ([facility] Body mass index (BMI) [Ratio] 32.09 kg/m2 32.09 kg/m2 W1 ([facility]) Heart rate 92 /min 92 /min eCW1 ([facility]) Respiratory rate 18 /min 18 /min W1 ([facility]) Body temperature 97.8 [degF] 97.8 [degF] eCW1 ( [facility]) Systolic blood pressure 140 mm[Hg] 140 mm[Hg] e CW1 ([facility]) Diastolic blood pressure 86 mm[Hg] 86 mm[Hg] eCW1 ([facility]) Body mass index (BMI) [Ratio] 32.3 kg/m2 32.3 k g/m2 MED[facility] ([facility], ) [place] body weight 178 [lb_av] 178 [lb_av] [facility] T ([facility], ) Body weight 108.184 kg 108.184 kg [facility] ([facility], ) Body surface area Derived from formula 2.30 m2 2.30 m2 [facility] ([facility], ) Systolic blood pressure 180 mm[Hg] 180 mm[Hg] M EDENT ([facility], ) Diastolic blood pressure 98 mm[Hg] 98 mm[Hg] [facility] ([facility]) Heart rate 94 /min 94 /min MED[facility] ([facility] ) Body height 72 [in_i] 72 [in_i] [facility] ([facility]) 6'0" Body weight 238.50 [lb_av] 238.50 [lb_av] MEDEN T ([facility], ) Body weight 240 [lb_av] 240 [lb_av] eCW1 ([facility]) Body height 72 [in_i] 72 [in_i] eCW1 ([facility]) Body mass index (BMI) [Ratio] 32.55 kg/m2 32.55 kg/m2 W1 ([facility]) Body temperature 96.9 [degF] 96.9 [degF] eCW1 ( [facility]) Systolic blood pressure 128 mm[Hg] 128 mm[Hg] e CW1 ([facility]) Diastolic blood pressure 81 mm[Hg] 81 mm[Hg] eCW1 ([facility]) Body weight 238.2 [lb_av] 238.2 [lb_av] eCW1 ([facility]) Body height 72 [in_i] 72 [in_i] eCW1 ([facility]) Body mass index (BMI) [Ratio] 32.30 kg/m2 32.30 kg/m2 W1 ([facility]) Heart rate 90 /min 90 /min eCW1 ([facility]) Respiratory rate 20 /min 20 /min eCW1 ([facility]) Body temperature 98 [degF] 98 [degF] eCW1 ([facility]) Systolic blood pressure 102 mm[Hg] 102 mm[Hg] e CW1 ([facility]) Diastolic blood pressure 70 mm[Hg] 70 mm[Hg] eCW1 ([facility]) Heart rate 109 /min 109 /min [facility] ([facility]) Body height 72 [in_i] 72 [in_i] [facility] ([facility]) 6'0" Body weight 241.00 [lb_av] 241.00 [lb_av] [facility] T ([facility]) Systolic blood pressure 133 mm[Hg] 133 mm[Hg] M EDENT ([facility]) Diastolic blood pressure 89 mm[Hg] 89 mm[Hg] [facility] ([facility]) Body mass index (BMI) [Ratio] 32.7 kg/m2 32.7 k g/m2 [facility] ([facility]) [place] body weight 178 [lb_av] 178 [lb_av] [facility] ([facility]) Body weight 109.318 kg 109.318 kg [facility] ([facility]) Body surface area Derived from formula 2.31 m2 2.31 m2 [facility] ([facility]) Body weight 109.998 kg 109.998 kg [facility] ([facility]) Body surface area Derived from formula 2.31 m2 2.31 m2 [facility] ([facility]) [place] body weight 178 [lb_av] 178 [lb_av] [facility] ([facility]) Systolic blood pressure 82 mm[Hg] 82 [facility] Diastolic blood pressure 57 mm[Hg] 57 mm[Hg] [facility] ([facility]) Heart rate 123 /min 123 /min [facility] ([facility]) Body height 72 [in_i] 72 [in_i] [facility] ([facility]) 6'0" Body weight 242.50 [lb_av] 242.50 [lb_av] [facility] ([facility]) Body mass index (BMI) [Ratio] 32.9 kg/m2 32.9 k g/m2 [facility] ([facility]) Body height 72 [in_i] 72 [in_i] [facility] Body weight 253.00 [lb_av] 253.00 [lb_av] MED[facility] T ([facility], ) Body mass index (BMI) [Ratio] 34.3 kg/m2 34.3 k g/m2 [facility] ([facility]) [place] body weight 178 [lb_av] 178 [lb_av] [facility] ([facility]) Body weight 114.761 kg 114.761 kg [facility] ([facility]) Body surface area Derived from formula 2.35 m2 2.35 m2 [facility] ([facility]) Heart rate 111 /min 111 /min W1 ([facility]) Body weight 251.2 [lb_av] 251.2 [lb_av] eCW1 ([facility]) Body height 72 [in_i] 72 [in_i] eCW1 ([facility]) Body mass index (BMI) [Ratio] 34.07 kg/m2 34.07 kg/m2 W1 ([facility]) Respiratory rate 20 /min 20 /min eCW1 ([facility]) Body temperature 98.1 [degF] 98.1 [degF] eCW1 ( [facility]) Systolic blood pressure 152 mm[Hg] 152 mm[Hg] e CW1 ([facility]) Diastolic blood pressure 104 mm[Hg] 104 mm[Hg] eCW1 ([facility]) Diastolic blood pressure 88 mm[Hg] 88 mm[Hg] [facility] Systolic blood pressure 132 mm[Hg] 132 mm[Hg] [facility] Heart rate 83 /min 83 /min [facility] Body height 182.9 cm 182.9 cm [facility] Body weight 115.214 kg 115.214 kg [facility] Body mass index (BMI) [Ratio] 34.45 kg/m2 34.45 kg/m2 [facility] Oxygen saturation in Arterial blood by Pulse oximetry 97 % 97 % [facility] Body weight 253.00 [lb_av] 253.00 [lb_av] [facility] ([facility]) Body mass index (BMI) [Ratio] 34.3 kg/m2 34.3 k g/m2 [facility] ([facility]) [place] body weight 178 [lb_av] 178 [[facility]_av] [facility] Body weight 114.761 kg 114.761 kg [facility] ([facility]) Body surface area Derived from formula 2.35 m2 2.35 m2 [facility] ([facility]) Systolic blood pressure 140 mm[Hg] 140 mm[Hg] [facility] ([facility]) Diastolic blood pressure 80 mm[Hg] 80 mm[Hg] [facility] ([facility]) Heart rate 95 /min 95 /min [facility] ([facility]) Oxygen saturation in Arterial blood by Pulse oximetry 98 % 98 % [facility] ([facility]) Body temperature 97.1 [degF] 97.1 [degF] [facility] ([facility]) Body height 72 [in_i] 72 [in_i] [facility] ([facility]) 6'0" Systolic blood pressure 108 mm[Hg] 108 mm[Hg] [facility] Diastolic blood pressure 82 mm[Hg] 82 mm[Hg] [facility] Body height 182.9 cm 182.9 cm [facility] Body weight 117.482 kg 117.482 kg [facility] Body mass index (BMI) [Ratio] 35.13 kg/m2 35.13 kg/m2 [facility] Oxygen saturation in Arterial blood by Pulse oximetry 99 % 99 % [facility] Systolic blood pressure 132 mm[Hg] 132 mm[facility]Hg[facility] Diastolic blood pressure 78 mm[Hg] 78 mm[Hg] [facility] ([facility]) Body height 72 [in_i] 72 [in_i] [facility] ([facility]) 6'0" Body weight 259.00 [lb_av] 259.00 [lb_av] [facility] Body mass index (BMI) [Ratio] 35.1 kg/m2 35.1 k g/m2 [facility] ([facility]) [place] body weight 178 [lb_av] 178 [lb_av] [facility] ([facility]) Body weight 117.482 kg 117.482 kg [facility] ([facility]) Body surface area Derived from formula 2.38 m2 2.38 m2 [facility] ([facility]) Systolic blood pressure 142 mm[Hg] 142 mm[Hg] M EDENT ([facility]) Oxygen saturation in Arterial blood by Pulse oximetry 96 % 96 % [facility] ([facility]) Body height 72 [in_i] 72 [in_i] [facility] ([facility]) 6'0" Body weight 254.00 [lb_av] 254.00 [lb_av] [facility] Body mass index (BMI) [Ratio] 34.4 kg/m2 34.4 k g/m2 [facility] ([facility]) [place] body weight 178 [lb_av] 178 [lb_av] [facility] Body weight 115.214 kg 115.214 kg [facility] ([facility]) Body surface area Derived from formula 2.36 m2 2.36 m2 [facility] ([facility]) Diastolic blood pressure 88 mm[Hg] 88 mm[Hg] [facility] ([facility]) Heart rate 84 /min 84 /min [facility] ([facility]) Systolic blood pressure 126 mm[Hg] 126 mm[Hg] [facility] Diastolic blood pressure 76 mm[Hg] 76 mm[Hg] [facility] Heart rate 98 /min 98 /min [facility] Body height 182.9 cm 182.9 cm [facility] Body weight 119.75 kg 119.75 kg [facility] Body mass index (BMI) [Ratio] 35.80 kg/m2 35.80 kg/m2 [facility] Oxygen saturation in Arterial blood by Pulse oximetry 96 % 96 % [facility] Body weight 270.2 [lb_av] 270.2 [lb_av] eCW1 ([facility]) Body height 72 [in_i] 72 [in_i] eCW1 ([facility]) Body mass index (BMI) [Ratio] 36.64 kg/m2 36.64 kg/m2 eCW1 ([facility]) Systolic blood pressure 124 mm[Hg] 124 mm[Hg] e CW1 ([facility]) Diastolic blood pressure 80 mm[Hg] 80 mm[Hg] eCW1 ([facility]) Systolic blood pressure 177 mm[Hg] 177 mm[Hg] M EDENT ([facility], ) Diastolic blood pressure 105 mm[Hg] 105 mm[facility] Body height 72 [in_i] 72 [in_i] [facility] ([facility]) 6'0" Body weight 274.38 [lb_av] 274.38 [lb_av] [facility] ([facility]) Body mass index (BMI) [Ratio] 37.2 kg/m2 37.2 k g/m2 [facility] ([facility]) [place] body weight 178 [lb_av] 178 [lb_av] [facility] ([facility]) Body weight 124.457 kg 124.457 kg [facility] ([facility]) Body surface area Derived from formula 2.44 m2 2.44 m2 [facility] ([facility]) Body weight 276.2 [lb_av] 276.2 [lb_av] eCW1 ([facility]) Body height 72 [in_i] 72 [in_i] eCW1 ([facility]) Body mass index (BMI) [Ratio] 37.46 kg/m2 37.46 kg/m2 [facility] ([facility]) Heart rate 86 /min 86 /min eCW1 ([facility]) Respiratory rate 20 /min 20 /min eCW1 ([facility]) Body temperature 98.2 [degF] 98.2 [degF] eCW1 ( [facility]) Systolic blood pressure 108 mm[Hg] 108 mm[Hg] [facility] Diastolic blood pressure 68 mm[Hg] 68 mm[Hg] [facility] Heart rate 99 /min 99 /min [facility] Body weight 124.739 kg 124.739 kg [facility] Body mass index (BMI) [Ratio] 37.30 kg/m2 37.30 kg/m2 [facility] Oxygen saturation in Arterial blood by Pulse oximetry 92 % 92 % [facility] Body height 72 [in_i] 72 [in_i] [facility] ([facility], ) 6'0" Body weight 277.00 [lb_av] 277.00 [lb_av] MEDEN T ([facility], ) Body mass index (BMI) [Ratio] 37.6 kg/m2 37.6 k g/m2 [facility] ([facility], ) [place] body weight 178 [lb_av[facility] 178 [lb_av] [facility] Body weight 125.647 kg 125.647 kg [facility] ([facility], ) Body surface area Derived from formula 2.45 m2 2.45 m2 [facility] ([facility], ) Systolic blood pressure 148 mm[Hg] 148 mm[Hg] [facility] Diastolic blood pressure 96 mm[Hg] 96 mm[Hg] [facility] Heart rate 89 /min 89 /min [facility] Body height 182.9 cm 182.9 cm [facility] Body weight 126.1 kg 126.1 kg [facility] Body mass index (BMI) [Ratio] 37.70 kg/m2 37.70 kg/m2 [facility] Oxygen saturation in Arterial blood by Pulse oximetry 97 % 97 % [facility] Body weight 279 [lb_av] 279 [lb_av] eCW1 ([facility]) Body height 72 [in_i] 72 [in_i] eCW1 ([facility]) Body mass index (BMI) [Ratio] 37.84 kg/m2 37.84 kg/m2 eCW1 ([facility]) Heart rate 90 /min 90 /min eCW1 ([facility]) Respiratory rate 20 /min 20 /min eCW1 ([facility]) Body temperature 98.2 [degF] 98.2 [degF] eCW1 ( [facility]) Systolic blood pressure 120 mm[Hg] 120 mm[Hg] e CW1 ([facility]) Diastolic blood pressure 68 mm[Hg] 68 mm[Hg] eCW1 ([facility]) Systolic blood pressure 152 mm[Hg] 152 mm[Hg] M EDENT ([facility], ) Body weight 125.647 kg 125.647 kg MEDENT ([facility]) Body surface area Derived from formula 2.45 m2 2.45 m2 [facility] Diastolic blood pressure 80 mm[Hg] 80 mm[Hg] [facility] ([facility]) Body height 72 [in_i] 72 [in_i] [facility] ([facility]) 6'0" Body weight 277.00 [lb_av] 277.00 [lb_av] MED[facility] T ([facility]) Body mass index (BMI) [Ratio] 37.6 kg/m2 37.6 k g/m2 [facility] ([facility]) [place] body weight 178 [lb_av] 178 [lb_av] [facility] T ([facility]) Body height 72 [in_i] 72 [in_i] [facility] ([facility]) 6'0" Body weight 270.00 [lb_av] 270.00 [lb_av] [facility] T ([facility]) Body mass index (BMI) [Ratio] 36.6 kg/m2 36.6 k g/m2 [facility] [place] body weight 178 [lb_av] 178 [lb_av] [facility] ([facility]) Body weight 122.472 kg 122.472 [facility] Body surface area Derived from formula 2.42 m2 2.42 m2 [facility] ([facility]) Body surface area Derived from formula 2.42 m2 2.42 m2 [facility] ([facility]) Systolic blood pressure 156 mm[Hg] 156 mm[Hg] M EDENT ([facility]) Diastolic blood pressure 88 mm[Hg] 88 mm[Hg] [facility] ([facility]) Body height 72 [in_i] 72 [in_i] [facility] ([facility]) 6'0" Body weight 270.50 [lb_av] 270.50 [lb_av] [facility] T ([facility]) Body mass index (BMI) [Ratio] 36.7 kg/m2 36.7 k g/m2 [facility] ([facility]) [place] body weight 178 [lb_av] 178 [lb_av] [facility] ([facility]) Body weight 122.699 kg 122.699 kg [facility] ([facility]) Systolic blood pressure 115 mm[Hg] 115 mm[Hg] M EDENT ([facility]) Diastolic blood pressure 78 mm[Hg] 78 mm[Hg] [facility] Body height 72 [in_i] 72 [in_i] [facility] ([facility]) 6'0" Body weight 262.38 [lb_av] 262.38 [lb_av] [facility] T ([facility]) Body mass index (BMI) [Ratio] 35.6 kg/m2 35.6 k g/m2 [facility] ([facility]) [place] body weight 178 [lb_av] 178 [lb_av] [facility] ([facility]) Body weight 119.013 kg 119.013 kg [facility] ([facility]) Body surface area Derived from formula 2.39 m2 2.39 m2 [facility] ([facility]) Systolic blood pressure 140 mm[Hg] 140 mm[Hg] [facility] Diastolic blood pressure 90 mm[Hg] 90 mm[Hg] [facility] Heart rate 112 /min 112 /min [facility] Body height 182.9 cm 182.9 cm [facility] Body weight 120.657 kg 120.657 kg [facility] Body mass index (BMI) [Ratio] 36.08 kg/m2 36.08 kg/m2 [facility] Oxygen saturation in Arterial blood by Pulse oximetry 94 % 94 % [facility] Body weight 121.565 kg 121.565 kg [facility] ([facility], ) Body height 72 [in_i] 72 [in_i] [facility] ([facility], ) 6'0" Body weight 268.00 [lb_av] 268.00 [lb_av] MED[facility] T ([facility], ) Body mass index (BMI) [Ratio] 36.3 kg/m2 36.3 k g/m2 [facility] ([facility], ) [place] body weight 178 [lb_av] 178 [lb_av] [facility] ([facility], ) Body weight 272 [lb_av] 272 [lb_av] eCW1 ([facility]) Body height 72 [in_i] 72 [in_i] eCW1 ([facility]) Body mass index (BMI) [Ratio] 36.89 kg/m2 36.89 kg/m2 eCW1 ([facility]) Heart rate 88 /min 88 /min eCW1 ([facility]) Respiratory rate 20 /min 20 /min eCW1 ([facility]) Body temperature 97.6 [degF] 97.6 [degF] eCW1 ( [facility]) Systolic blood pressure 110 mm[Hg] 110 mm[Hg] e CW1 ([facility]) Diastolic blood pressure 70 mm[Hg] 70 mm[Hg] eCW1 ([facility]) Body height 72 [in_i] 72 [in_i] [facility] ([facility]) 6'0" Body mass index (BMI) [Ratio] 36.3 kg/m2 36.3 k g/m2 [facility] [place] body weight 178 [lb_av] 178 [lb_av] [facility] T ([facility]) Body weight 121.565 kg 121.565 kg [facility] ([facility]) Body weight 268.00 [lb_av] 268.00 [lb_av] [facility] T ([facility]) Systolic blood pressure 157 mm[Hg] 157 mm[Hg] M EDENT ([facility]) Diastolic blood pressure 94 mm[Hg] 94 mm[Hg] [facility] ([facility]) Heart rate 76 /min 76 /min [facility] ([facility]) Body temperature 97.8 [degF] 97.8 [degF] [facility] ([facility]) Respiratory rate 20 /min 20 /min [facility] ( [facility]) Body height 72 [in_i] 72 [in_i] [facility] ([facility]) 6'0" Body weight 265.00 [lb_av] 265.00 [lb_av] MED[facility] T ([facility]) Body mass index (BMI) [Ratio] 35.9 kg/m2 35.9 k g/m2 [facility] ([facility]) Body weight 121.678 kg 121.678 kg [facility] ([facility]) Systolic blood pressure 136 mm[Hg] 136 mm[Hg] M EDENT ([facility]) Diastolic blood pressure 80 mm[Hg] 80 mm[Hg] [facility] ([facility]) Body height 72 [in_i] 72 [in_i] [facility] ([facility]) 6'0" Body weight 268.25 [lb_av] 268.25 [lb_av] MED[facility] T ([facility]) Body mass index (BMI) [Ratio] 36.4 kg/m2 36.4 k g/m2 [facility] Patient Treatment Plan of Care Planned Activity Planned Date Details Description Data Source (s) doxycycline hyclate 100 MG Oral Tablet 05/12/2021 12:00:00 AM EDT eCW1 ([facility]) Chantix Continuing Month Richard 1 MG 02/11/2021 12:00:00 AM EDT eCW1 ([facility]) Chantix Starting Month Richard 0.5 MG X 11 & 1 MG X 42 02/11/2021 12 :00:00 AM EDT eCW1 ([facility]) Amlodipine 10 MG Oral Tablet 02/11/2021 12:00:00 AM EDT [facility] varenicline 1 MG Oral Tablet 02/11/2021 12:00:00 AM EDT [facility] Chantix Starting Month Richard 0.5 MG X 11 & 1 MG X 42 tab let 02/11/2021 12:00:00 AM EDT [facility] lidocaine (LIDODERM) 5 % 12/16/2020 12:00:00 AM EDT [facility] Furosemide 20 MG Oral Tablet 12/04/2020 12:00:00 AM EDT [facility] Furosemide 20 MG Oral Tablet 12/04/2020 12:00:00 AM EDT [facility] Acetaminophen 325 MG / Oxycodone Hydrochloride 10 MG O ral Tablet 11/26/2020 12:00:00 AM EDT [facility] atorvastatin 20 MG Oral Tablet 11/17/2020 12:00:00 AM EDT eCW1 ([facility]) atorvastatin 20 MG Oral Tablet 11/17/2020 12:00:00 AM EDT eCW1 ([facility]) atorvastatin 20 MG Oral Tablet 11/17/2020 12:00:00 AM EDT eCW1 ([facility]) atorvastatin 20 MG Oral Tablet 11/17/2020 12:00:00 AM EDT eCW1 ([facility]) QVAR REDIHALER 80 MCG/ACT AERB 11/10/2020 12:00:00 AM EDT [facility] Furosemide 20 MG Oral Tablet 10/23/2020 12:00:00 AM EST [facility] formoterol fumarate 0.01 MG/ML Inhalant Solution [Perf oromist] 10/17/2020 12:00:00 AM EST [facility] Furosemide 40 MG Oral Tablet 09/25/2020 12:00:00 AM EST [facility] Furosemide 40 MG Oral Tablet 08/20/2020 12:00:00 AM EST [facility] Furosemide 40 MG Oral Tablet 08/20/2020 12:00:00 AM EST eCW1 ([facility]) Furosemide 40 MG Oral Tablet 08/20/2020 12:00:00 AM EST eCW1 ([facility]) Prednisone 10 MG Oral Tablet 07/31/2020 12:00:00 AM EST [facility] Famotidine 40 MG Oral Tablet 06/06/2020 12:00:00 AM EDT [facility] Famotidine 40 MG Oral Tablet 06/05/2020 12:00:00 AM EDT eCW1 ([facility]) Famotidine 40 MG Oral Tablet 06/05/2020 12:00:00 AM EDT eCW1 ([facility]) Famotidine 40 MG Oral Tablet 06/05/2020 12:00:00 AM EDT eCW1 ([facility]) Acetaminophen 325 MG / Oxycodone Hydrochloride 5 MG Or al Tablet 07/31/2019 12:00:00 AM EST [facility] Atenolol 25 MG Oral Tablet 01/07/2016 12:00:00 AM EDT [facility] albuterol (PROVENTIL HFA;VENTOLIN HFA) 108 (90 BASE) MCG/ACT inhale r [facility] Amlodipine 10 MG Oral Tablet [facility]
[2021-06-08] MEDS ORDERED: propofoL 200 MG/20 ML VIAL As Ordered ONE (09:21)
[2021-06-08] MEDS ORDERED: LIDOCAINE 2% 100MG/5ML SDV (FOR ANES.) As Ordered ONE (09:21)
[2021-06-08] MEDS ORDERED: fentaNYL 100 MCG/2 ML INJECTION (J3010) As Ordered ONE (09:22)
--- NOTE | 2021-06-08 09:53 | ROOR ---
Patient Name: Foster Mishra Procedure Date: 06/08/2021 9:22 AM Date of : 1955 Age: 65 Room: [facility] Gender: Male Note Status: Finalized Procedure: Upper GI endoscopy Indications: Dysphagia Providers: Murphy Hudson MD Referring MD: Nazia Blum NP Requesting Provider: Medicines: Monitored Anesthesia Care Complications: No immediate complications. Procedure: Pre-Anesthesia Assessment: - Prior to the procedure, a History and Physical was performed, and patient medications and allergies were reviewed. The patient is competent. The risks and benefits of the procedure and the sedation options and risks were discussed with the patient. All questions were answered and informed consent was obtained. Patient identification and proposed procedure were verified by the physician, the nurse and the anesthesiologist in the procedure room. Mental Status Examination: alert and oriented. Airway Examination: normal oropharyngeal airway and neck mobility. Respiratory Examination: clear to auscultation. CV Examination: normal. Prophylactic Antibiotics: The patient does not require prophylactic antibiotics. Prior Anticoagulants: The patient has taken no previous anticoagulant or antiplatelet agents. ASA Grade Assessment: III - A patient with severe systemic disease. After reviewing the risks and benefits, the patient was deemed in satisfactory condition to undergo the procedure. The anesthesia plan was to use monitored anesthesia care (MAC). Immediately prior to administration of medications, the patient was re-assessed for adequacy to receive sedatives. The heart rate, respiratory rate, oxygen saturations, blood pressure, adequacy of pulmonary ventilation, and response to care were monitored throughout the procedure. The physical status of the patient was re-assessed after the procedure. The Endoscope was introduced through the mouth, and advanced to the second part of duodenum. The upper GI endoscopy was accomplished without difficulty. The patient tolerated the procedure well. Findings: Noted moderate to severe mucosal congestion/ erythema in upper laryngeal area ( around aryepiglottic folds). LA Grade A (one or more mucosal breaks less than 5 mm, not extending between tops of 2 mucosal folds) esophagitis with no bleeding was found in the distal esophagus. Biopsies were taken with a cold forceps for histology. Verification of patient identification for the specimen was done by the physician and nurse using the patient's name, date and medical record number. Estimated blood loss was minimal. One non-bleeding cratered gastric ulcer with a clean ulcer base (Melvin Class III) was found in the gastric antrum. The lesion was 10 mm in largest dimension. Biopsies were taken with a cold forceps for histology. The duodenal bulb and second portion of the duodenum were normal. Impression: - Noted moderate to severe mucosal congestion/ erythema in upper laryngeal area ( around aryepiglottic folds - LA Grade A reflux esophagitis. Rule out Mccann's esophagus. Biopsied. - Non-bleeding gastric ulcer with a clean ulcer base (Melvin Class III). Biopsied. - Normal duodenal bulb and second portion of the duodenum. Recommendation: - Patient has a contact number available for emergencies. The signs and symptoms of potential delayed complications were discussed with the patient. Return to normal activities tomorrow. Written discharge instructions were provided to the patient. - Chopped diet and mechanical soft diet. - Continue present medications. - Use sucralfate suspension 1 gram PO QID for 4 weeks. - Follow an antireflux regimen. - Await pathology results. - Telephone GI clinic for pathology results in 2 weeks. - Return to GI clinic if persistent symptoms or new symptoms. - Refer to an ENT specialist as previously scheduled. - Return to primary care physician. Procedure Code(s): --- Professional --- 35614, Esophagogastroduodenoscopy, flexible, transoral; with biopsy, single or multiple Diagnosis Code(s): --- Professional --- K21.0, Gastro-esophageal reflux disease with esophagitis K25.9, Gastric ulcer, unspecified as acute or chronic, without hemorrhage or perforation R13.10, Dysphagia, unspecified CPT copyright 2019 [employer]. All rights reserved. The codes documented in this report are preliminary and upon manager of change review may be revised to meet current compliance requirements. Murphy Hudson MD Murphy Hudson MD 06/08/2021 9:53:01 AM Electronically signed by Murphy Hudson MD Number of Addenda: 0 Note Initiated On: 06/08/2021 9:22 AM Estimated Blood Loss: Estimated blood loss was minimal.
[2021-06-08 10:00] VITALS: BP 172/90
== END 2021-06-08 10:09 | disposition home or self-care (01) ==
LOC: M OPP 08:11
PROVIDERS: ATTEND Internal Medicine Gastroenterology
DX: K21.00 Gastro-esophageal reflux disease with esophagitis, without bleeding (principal); K25.9 Gastric ulcer, unspecified as acute or chronic, without hemorrhage or perforation; R13.10 Dysphagia, unspecified; R12 Heartburn; R93.3 Abnormal findings on diagnostic imaging of other parts of digestive tract; Z79.82 Long term (current) use of aspirin; Z79.891 Long term (current) use of opiate analgesic; Z79.899 Other long term (current) drug therapy; Z88.5 Allergy status to narcotic agent; Z88.8 Allergy status to other drugs, medicaments and biological substances; Z87.891 Personal history of nicotine dependence
CPT/HCPCS: 43239; 88305; J3010

== ENCOUNTER → 2022-01-12 | Outpatient (CLI) | payer MEDICARE, OTHER ==
[~2022-01-12] MED LIST changes: -NS 1,000 ML IV ONE
[2022-01-12 11:39] LABS: FREE T4 1.13 NG/DL (0.76-1.46); THYROID STIMULATING HORMONE 1.2 uIU/ML (0.358-3.740)
== END ==
LOC: M ONCR 09:52
PROVIDERS: ATTEND General Practice
DX: C32.1 Malignant neoplasm of supraglottis (principal); R13.10 Dysphagia, unspecified; Z79.82 Long term (current) use of aspirin; Z87.891 Personal history of nicotine dependence; Z88.5 Allergy status to narcotic agent; Z88.8 Allergy status to other drugs, medicaments and biological substances; Z92.3 Personal history of irradiation; Z95.5 Presence of coronary angioplasty implant and graft
CPT/HCPCS: 31575; 36415; 84439; 84443; G0463

== ENCOUNTER → 2022-01-27 | Outpatient (CLI) | payer MEDICARE | LOC: M RAD 15:32 | PROVIDERS: ATTEND Nurse Practitioner Family | DX: I65.23 Occlusion and stenosis of bilateral carotid arteries (principal) ==

== ENCOUNTER → 2022-02-10 | Outpatient (CLI) | payer MEDICARE, OTHER | LOC: M RAD 10:30 | PROVIDERS: ATTEND Internal Medicine Cardiovascular Disease | DX: I70.213 Atherosclerosis of native arteries of extremities with intermittent claudication, bilateral legs (principal) ==

== ENCOUNTER → 2022-02-25 | Outpatient (CLI) | payer MEDICARE, OTHER ==
[2022-02-25 09:48] LABS: HEMATOCRIT 43.1 % (42.0-52.0); HEMOGLOBIN 14.2 g/dl (13.5-17.5); MEAN CORPUSCULAR HEMOGLOBIN 30.1 pg (27.0-33.0); MEAN CORPUSCULAR HGB CONC 32.9 g/dl (32.0-36.5); MEAN CORPUSCULAR VOLUME 91.3 fl (80.0-96.0); PLATELET COUNT, AUTOMATED 250 10^3/uL (150-450); RED BLOOD COUNT 4.72 10^6/uL (4.30-6.10); WHITE BLOOD COUNT 6.8 10^3/uL (4.0-10.0)
[2022-02-25 10:20] LABS: ALBUMIN 3.8 GM/DL (3.2-5.2); BILIRUBIN,TOTAL 0.6 MG/DL (0.2-1.0); CALCIUM LEVEL 9.7 MG/DL (8.8-10.2); CHOLESTEROL RISK RATIO 2.7 (<5); CREATININE FOR GFR 1.41 MG/DL (0.70-1.30); GLOMERULAR FILTRATION RATE 53.7 (>49); MAGNESIUM LEVEL 2.3 MG/DL (1.8-2.4); THYROID STIMULATING HORMONE 1.41 uIU/ML (0.358-3.740); TOTAL PROTEIN 7.8 GM/DL (6.4-8.2)
== END ==
LOC: M WUC 08:03
PROVIDERS: ATTEND Nurse Practitioner Adult Health
DX: K76.0 Fatty (change of) liver, not elsewhere classified (principal); I12.9 Hypertensive chronic kidney disease with stage 1 through stage 4 chronic kidney disease, or unspecified chronic kidney disease; Z00.00 Encounter for general adult medical examination without abnormal findings; Z79.899 Other long term (current) drug therapy

== ENCOUNTER → 2022-03-31 | Outpatient (CLI) | payer MEDICARE, OTHER | LOC: M RAD 12:23 | PROVIDERS: ATTEND Nurse Practitioner Adult Health | DX: Z87.891 Personal history of nicotine dependence (principal); R91.8 Other nonspecific abnormal finding of lung field ==

== ENCOUNTER → 2022-05-10 | Outpatient (CLI) | payer MEDICARE | LOC: M PLARAD 11:35 | PROVIDERS: ATTEND Nurse Practitioner Adult Health | DX: R91.8 Other nonspecific abnormal finding of lung field (principal) | CPT/HCPCS: 78815; A9552 ==

== ENCOUNTER 2022-05-30 17:04 | Emergency (ER) | payer MEDICARE ==
[~2022-05-30] VITALS: Ht 182.9 cm; Wt 97.7 kg
[2022-05-30 18:11] LABS: BASO % 0.4 % (0.0-1.0); EOS # 0.1 10^3/uL (0.0-0.5); EOS % 1.5 % (0.0-3.0); HEMATOCRIT 42.9 % (42.0-52.0); HEMOGLOBIN 15.1 g/dl (13.5-17.5); LYMPH # 1.2 10^3/uL (1.5-5.0); LYMPH % 22.1 % (24.0-44.0); MEAN CORPUSCULAR HEMOGLOBIN 32.3 pg (27.0-33.0); MEAN CORPUSCULAR HGB CONC 35.2 g/dl (32.0-36.5); MEAN CORPUSCULAR VOLUME 91.9 fl (80.0-96.0); MONO # 0.5 10^3/uL (0.0-0.8); MONO % 9.9 % (2.0-8.0); NEUTROPHILS # 3.6 10^3/uL (1.5-8.5); NEUTROPHILS % 65.7 % (36.0-66.0); PLATELET COUNT, AUTOMATED 199 10^3/uL (150-450); RED BLOOD COUNT 4.67 10^6/uL (4.30-6.10); WHITE BLOOD COUNT 5.5 10^3/uL (4.0-10.0)
[2022-05-30] MEDS ORDERED: KETOROLAC 30 MG/ML 1ML VIAL IV ONE (18:30)
[2022-05-30] MEDS ORDERED: POTASSIUM CHLORIDE 10MEQ SR TABLET PO ONE (18:30)
[2022-05-30 19:04] LABS: ALBUMIN 3.6 GM/DL (3.2-5.2); BILIRUBIN,DIRECT 0.1 MG/DL (0.0-0.2); BILIRUBIN,TOTAL 0.7 MG/DL (0.2-1.0); TOTAL PROTEIN 7.2 GM/DL (6.4-8.2)
[2022-05-30] MEDS ORDERED: NS 500 ML IV ONE (19:45)
[2022-05-30] MEDS ORDERED: fentaNYL 100 MCG/2 ML INJECTION IV ONE (19:45)
[2022-05-30 21:45] VITALS: BP 142/84
[2022-05-30] MEDS ORDERED: MIRA3350 PO (22:15)
[2022-05-30] MEDS ORDERED: METHYLNALTREXONE BROMIDE 12MG/0.6ML VIAL (RELISTOR) SC ONE (23:00)
== END 2022-05-30 22:29 | disposition home or self-care (01) ==
LOC: EDBD 17:04 → M ED 17:04
DX: R10.32 Left lower quadrant pain (principal); K59.00 Constipation, unspecified; I25.2 Old myocardial infarction; E78.5 Hyperlipidemia, unspecified; I10 Essential (primary) hypertension; I51.9 Heart disease, unspecified; Z87.442 Personal history of urinary calculi; Z88.8 Allergy status to other drugs, medicaments and biological substances; Z88.6 Allergy status to analgesic agent; Z79.51 Long term (current) use of inhaled steroids; Z79.82 Long term (current) use of aspirin; Z79.899 Other long term (current) drug therapy
CPT/HCPCS: 74176; 80047; 80076; 81000; 81015; 83690; 85025; 96361; 96374; 96375; 99284; J1885; J2212; J3010

== ENCOUNTER → 2023-02-23 | Outpatient (CLI) | payer MEDICARE ==
[~2023-02-23] MED LIST changes: +MIRA3350 PO
== END ==
LOC: M RAD 11:32
PROVIDERS: ATTEND Surgery
DX: I65.23 Occlusion and stenosis of bilateral carotid arteries (principal)

== ENCOUNTER → 2023-03-01 | Outpatient (CLI) | payer MEDICARE, OTHER ==
[~2023-03-01] MED LIST changes: +FINA-48 PO; -PROS5TAB PO
[2023-03-01 14:27] LABS: BASO # 0.1 10^3/uL (0.0-0.2); BASO % 0.6 % (0.0-1.0); EOS # 0.1 10^3/uL (0.0-0.5); EOS % 1.3 % (0.0-3.0); HEMATOCRIT 44.4 % (42.0-52.0); HEMOGLOBIN 14.8 g/dl (13.5-17.5); LYMPH # 1.3 10^3/uL (1.5-5.0); LYMPH % 15.2 % (24.0-44.0); MEAN CORPUSCULAR HEMOGLOBIN 32.5 pg (27.0-33.0); MEAN CORPUSCULAR HGB CONC 33.3 g/dl (32.0-36.5); MEAN CORPUSCULAR VOLUME 97.6 fl (80.0-96.0); MONO # 0.7 10^3/uL (0.0-0.8); MONO % 7.9 % (2.0-8.0); NEUTROPHILS # 6.1 10^3/uL (1.5-8.5); NEUTROPHILS % 74.1 % (36.0-66.0); PLATELET COUNT, AUTOMATED 185 10^3/uL (150-450); RED BLOOD COUNT 4.55 10^6/uL (4.30-6.10); WHITE BLOOD COUNT 8.2 10^3/uL (4.0-10.0)
[2023-03-01 14:43] LABS: ALBUMIN 3.9 G/DL (3.2-5.2); ALKALINE PHOSPHATASE 67 U/L (46-116); ALT/SGPT 32 U/L (7.0-40); AST/SGOT 24 U/L (<34); BILIRUBIN,TOTAL 1.1 MG/DL (0.3-1.2); BLOOD UREA NITROGEN 24 MG/DL (9-23); CALCIUM LEVEL 8.9 MG/DL (8.3-10.6); CARBON DIOXIDE LEVEL 29 MMOL/L (20-31); CHLORIDE LEVEL 105 MMOL/L (98-107); CHOLESTEROL LEVEL 168 MG/DL (<200); CHOLESTEROL RISK RATIO 2.08 (<5); CREATININE FOR GFR 1.21 MG/DL (0.70-1.30); GLOMERULAR FILTRATION RATE > 60.0 (>49); GLUCOSE, FASTING 123 MG/DL (74-106); HDL CHOLESTEROL 80.7 MG/DL (>40); LDL CHOLESTEROL 64.5 MG/DL (<100); NON-HDL-C 87.3 MG/DL; POTASSIUM SERUM 3.8 MMOL/L (3.5-5.1); SODIUM LEVEL 140 MMOL/L (136-145); TRIGLYCERIDES LEVEL 114 MG/DL (<150)
== END ==
LOC: M PLALAB 11:23
PROVIDERS: ATTEND Nurse Practitioner Family
DX: R06.09 Other forms of dyspnea (principal)

== ENCOUNTER → 2023-03-01 | Outpatient (CLI) | payer MEDICARE ==
[2023-03-01 16:35] LABS: FREE T4 1.46 NG/DL (0.89-1.76)
[2023-03-01 17:15] LABS: THYROID STIMULATING HORMONE 1.646 uIU/ML (0.55-4.78)
== END ==
LOC: M ONCR 12:54
PROVIDERS: ATTEND General Practice
DX: C32.1 Malignant neoplasm of supraglottis (principal); Z71.2 Person consulting for explanation of examination or test findings; Z79.51 Long term (current) use of inhaled steroids; Z79.82 Long term (current) use of aspirin; Z79.899 Other long term (current) drug therapy; Z87.891 Personal history of nicotine dependence; Z88.5 Allergy status to narcotic agent; Z88.8 Allergy status to other drugs, medicaments and biological substances; Z92.3 Personal history of irradiation; Z95.5 Presence of coronary angioplasty implant and graft; R06.09 Other forms of dyspnea
CPT/HCPCS: 31575; 36415; 80053; 80061; 84439; 84443; 85025; G0463

== ENCOUNTER → 2023-03-30 | Outpatient (CLI) | payer MEDICARE, OTHER | LOC: M PLAIMG 15:49 | PROVIDERS: ATTEND Nurse Practitioner Adult Health | DX: Z00.00 Encounter for general adult medical examination without abnormal findings (principal); R06.02 Shortness of breath; J44.9 Chronic obstructive pulmonary disease, unspecified; K63.89 Other specified diseases of intestine; I12.9 Hypertensive chronic kidney disease with stage 1 through stage 4 chronic kidney disease, or unspecified chronic kidney disease; N18.30 Chronic kidney disease, stage 3 unspecified; I25.10 Atherosclerotic heart disease of native coronary artery without angina pectoris; G47.30 Sleep apnea, unspecified; K21.9 Gastro-esophageal reflux disease without esophagitis; M54.9 Dorsalgia, unspecified; Z85.21 Personal history of malignant neoplasm of larynx; Z72.0 Tobacco use | CPT/HCPCS: 71046; G0463 ==

== ENCOUNTER → 2023-04-01 | Outpatient (CLI) | payer MEDICARE, OTHER ==
[~2023-04-01] MED LIST changes: +ISOVUE-370 76% 100ML VIAL As Ordered ONE
== END ==
LOC: M RAD 08:55
PROVIDERS: ATTEND Nurse Practitioner Adult Health
DX: J84.10 Pulmonary fibrosis, unspecified (principal)
CPT/HCPCS: 71275; Q9967

== ENCOUNTER → 2023-05-11 | Outpatient (REF) | payer MEDICARE, OTHER, MEDICAID ==
[~2023-05-11] MED LIST changes: -ISOVUE-370 76% 100ML VIAL As Ordered ONE
== END ==
LOC: M LAB REF 11:59
PROVIDERS: ATTEND Nurse Practitioner Adult Health
DX: J44.1 Chronic obstructive pulmonary disease with (acute) exacerbation (principal)

== ENCOUNTER → 2023-06-09 | Outpatient (CLI) | payer MEDICARE, OTHER ==
[2023-06-09 14:12] LABS: HEMATOCRIT 44.2 % (42.0-52.0); HEMOGLOBIN 14.7 g/dl (13.5-17.5); MEAN CORPUSCULAR HEMOGLOBIN 32.5 pg (27.0-33.0); MEAN CORPUSCULAR HGB CONC 33.3 g/dl (32.0-36.5); MEAN CORPUSCULAR VOLUME 97.6 fl (80.0-96.0); PLATELET COUNT, AUTOMATED 204 10^3/uL (150-450); RED BLOOD COUNT 4.53 10^6/uL (4.30-6.10)
[2023-06-17 08:03] LABS: BILIRUBIN,TOTAL 0.5 MG/DL (0.0-1.2); CALCIUM LEVEL 9.5 MG/DL (8.7-10.3); CHOLESTEROL RISK RATIO 2.202 (<5); CREATININE FOR GFR 1.58 MG/DL (0.57-1.00); GLOMERULAR FILTRATION RATE 46.9 (>59); LDL CHOLESTEROL 55.4 MG/DL (<100); POTASSIUM SERUM 3.9 mmol/L (3.5-5.2)
[2023-06-17 08:04] LABS: ALBUMIN 4.6 G/DL (3.9-4.9); TOTAL PROTEIN 6.6 G/DL (6.0-8.5)
== END ==
LOC: M PLALAB 10:25
PROVIDERS: ATTEND Nurse Practitioner Adult Health
DX: R73.9 Hyperglycemia, unspecified (principal); I10 Essential (primary) hypertension; I25.10 Atherosclerotic heart disease of native coronary artery without angina pectoris

== ENCOUNTER → 2023-06-14 | Outpatient (CLI) | payer MEDICARE, OTHER | LOC: M ONCR 08:15 | PROVIDERS: ATTEND General Practice | DX: J02.9 Acute pharyngitis, unspecified (principal); R09.82 Postnasal drip; R60.0 Localized edema; F17.210 Nicotine dependence, cigarettes, uncomplicated; Z71.2 Person consulting for explanation of examination or test findings; Z79.51 Long term (current) use of inhaled steroids; Z79.82 Long term (current) use of aspirin; Z79.891 Long term (current) use of opiate analgesic; Z79.899 Other long term (current) drug therapy; Z85.21 Personal history of malignant neoplasm of larynx; Z88.5 Allergy status to narcotic agent; Z88.8 Allergy status to other drugs, medicaments and biological substances; Z92.3 Personal history of irradiation ==

== ENCOUNTER → 2024-02-14 | Outpatient (CLI) | payer MEDICARE, OTHER, MEDICAID ==
[~2024-02-14] MED LIST changes: -ASPI-161 PO; +ASPI-615 PO
[2024-02-14 10:51] LABS: HEMATOCRIT 42.6 % (42.0-52.0); MEAN CORPUSCULAR HEMOGLOBIN 31.8 pg (27.0-33.0); MEAN CORPUSCULAR HGB CONC 32.9 g/dl (32.0-36.5); MEAN CORPUSCULAR VOLUME 96.8 fl (80.0-96.0); PLATELET COUNT, AUTOMATED 238 10^3/uL (150-450); WHITE BLOOD COUNT 5.2 10^3/uL (4.0-10.0)
[2024-02-14 11:03] LABS: HEMOGLOBIN A1c 5.1 % (4.0-6.0)
[2024-02-14 11:14] LABS: ALBUMIN 3.6 G/DL (3.2-5.2); ALKALINE PHOSPHATASE 83 U/L (46-116); ALT/SGPT 26 U/L (7.0-40); AST/SGOT 26 U/L (<34); BLOOD UREA NITROGEN 13 MG/DL (9-23); CALCIUM LEVEL 9.4 MG/DL (8.3-10.6); CARBON DIOXIDE LEVEL 30 MMOL/L (20-31); CHLORIDE LEVEL 105 MMOL/L (98-107); CHOLESTEROL LEVEL 113 MG/DL (<200); CHOLESTEROL RISK RATIO 3.07 (<5); CREATININE FOR GFR 1.17 MG/DL (0.70-1.30); GLOMERULAR FILTRATION RATE > 60.0 (>49); GLUCOSE, FASTING 108 MG/DL (74-106); HDL CHOLESTEROL 36.7 MG/DL (>40); LDL CHOLESTEROL 55.5 MG/DL (<100); NON-HDL-C 76.3 MG/DL; POTASSIUM SERUM 3.6 MMOL/L (3.5-5.1); SODIUM LEVEL 140 MMOL/L (136-145); THYROID STIMULATING HORMONE 1.608 uIU/ML (0.55-4.78); TOTAL PROTEIN 6.6 G/DL (5.7-8.2); TRIGLYCERIDES LEVEL 104 MG/DL (<150)
[2024-02-14 11:15] LABS: FREE T4 1.19 NG/DL (0.89-1.76)
== END ==
LOC: M WUC 08:35
PROVIDERS: ATTEND Nurse Practitioner Adult Health
DX: R73.9 Hyperglycemia, unspecified (principal); I10 Essential (primary) hypertension; I25.10 Atherosclerotic heart disease of native coronary artery without angina pectoris

== ENCOUNTER → 2024-02-16 | Outpatient (CLI) | payer MEDICARE, OTHER, MEDICAID | LOC: M WUC 14:55 | PROVIDERS: ATTEND Nurse Practitioner Adult Health | DX: R06.02 Shortness of breath (principal) ==

== ENCOUNTER → 2024-03-01 | Outpatient (CLI) | payer MEDICARE ==
[~2024-03-01] MED LIST changes: +ALFU10TA23 PO; -ALFU10TA3 PO
== END ==
LOC: M ONCR 12:52
PROVIDERS: ATTEND General Practice
DX: C32.1 Malignant neoplasm of supraglottis (principal); F17.210 Nicotine dependence, cigarettes, uncomplicated; Z79.899 Other long term (current) drug therapy; Z88.5 Allergy status to narcotic agent; Z88.8 Allergy status to other drugs, medicaments and biological substances; Z92.3 Personal history of irradiation
CPT/HCPCS: 31575; G0463

== ENCOUNTER → 2024-03-09 | Outpatient (CLI) | payer MEDICARE | LOC: M RAD 14:20 | PROVIDERS: ATTEND Surgery | DX: I65.23 Occlusion and stenosis of bilateral carotid arteries (principal) ==

== ENCOUNTER → 2024-04-05 | Outpatient (CLI) | payer MEDICARE | LOC: M RAD 09:28 | PROVIDERS: ATTEND Nurse Practitioner Adult Health | DX: Z12.2 Encounter for screening for malignant neoplasm of respiratory organs (principal); Z87.891 Personal history of nicotine dependence ==

== ENCOUNTER 2024-05-03 12:57 | Day surgery (SDC) | payer MEDICARE ==
[~2024-05-03] VITALS: Ht 182.9 cm; Wt 122.0 kg
[~2024-05-03 12:57] MED LIST changes: +CLOB0.0548 TOP; +LIDOCAINE 2% W/EPINEPHRINE 20ML VIAL **PRES FREE As Ordered ONE; +TOBRADEX OPHTH OINT 3.5 GM As Ordered ONE; +TREL1AER IN
[2024-05-03] MEDS: LIDOCAINE 3.5 % 1ML OPHTH TOPICAL GEL OU ONE (13:48)
[2024-05-03] MEDS ORDERED: MIDAZOLAM INJ 2MG/2ML VIAL As Ordered ONE (13:59)
[2024-05-03] MEDS ORDERED: fentaNYL 100 MCG/2 ML INJECTION As Ordered ONE (13:59)
[2024-05-03] MEDS ORDERED: POVIDONE-IODINE 5% OPHTH PREP SOL 30ML As Ordered ONE (14:32)
[2024-05-03] MEDS ORDERED: dexmedeTOMIDine (4MCG/ML)200MCG/50ML BTL (PRECEDEX) As Ordered ONE (15:05)
[2024-05-03 15:54] VITALS: BP 145/90; TEMP 97.6; O2SAT 95
== END 2024-05-03 15:56 | disposition home or self-care (01) ==
LOC: M SDC 12:57
PROVIDERS: ATTEND Ophthalmology
DX: H02.831 Dermatochalasis of right upper eyelid (principal); H02.834 Dermatochalasis of left upper eyelid; I10 Essential (primary) hypertension; I25.10 Atherosclerotic heart disease of native coronary artery without angina pectoris; J44.9 Chronic obstructive pulmonary disease, unspecified; E78.00 Pure hypercholesterolemia, unspecified; G47.30 Sleep apnea, unspecified; N40.0 Benign prostatic hyperplasia without lower urinary tract symptoms; F17.210 Nicotine dependence, cigarettes, uncomplicated; Z95.5 Presence of coronary angioplasty implant and graft; Z79.51 Long term (current) use of inhaled steroids; Z79.899 Other long term (current) drug therapy; Z79.82 Long term (current) use of aspirin; K21.9 Gastro-esophageal reflux disease without esophagitis; L40.9 Psoriasis, unspecified; Z92.3 Personal history of irradiation; Z88.8 Allergy status to other drugs, medicaments and biological substances; Z88.5 Allergy status to narcotic agent; Z86.14 Personal history of Methicillin resistant Staphylococcus aureus infection
CPT/HCPCS: 15823; 88300; J2250; J3010

== ENCOUNTER → 2024-05-17 | Outpatient (CLI) | payer MEDICARE ==
[~2024-05-17] MED LIST changes: -LIDOCAINE 2% W/EPINEPHRINE 20ML VIAL **PRES FREE As Ordered ONE; -TOBRADEX OPHTH OINT 3.5 GM As Ordered ONE
== END ==
LOC: M WUC 15:14
PROVIDERS: ATTEND Nurse Practitioner Family
DX: R06.09 Other forms of dyspnea (principal)

== ENCOUNTER 2024-05-25 20:09 | Emergency (ER) | payer MEDICARE ==
[~2024-05-25] VITALS: Ht 182.9 cm; Wt 118.1 kg
[2024-05-25 20:13] VITALS: TEMP 97.4
[2024-05-25 20:45] LABS: BASO % 0.6 % (0.0-1.0); EOS # 0.1 10^3/uL (0.0-0.5); EOS % 1.7 % (0.0-3.0); HEMATOCRIT 39.4 % (42.0-52.0); HEMOGLOBIN 13.4 g/dl (13.5-17.5); LYMPH % 21.1 % (24.0-44.0); MEAN CORPUSCULAR HEMOGLOBIN 32.3 pg (27.0-33.0); MEAN CORPUSCULAR VOLUME 94.9 fl (80.0-96.0); MONO # 0.4 10^3/uL (0.0-0.8); MONO % 7.3 % (2.0-8.0); NEUTROPHILS # 3.3 10^3/uL (1.5-8.5); NEUTROPHILS % 69.1 % (36.0-66.0); PLATELET COUNT, AUTOMATED 182 10^3/uL (150-450); RED BLOOD COUNT 4.15 10^6/uL (4.30-6.10); WHITE BLOOD COUNT 4.8 10^3/uL (4.0-10.0)
[2024-05-25 21:10] LABS: CK-MB VALUE MASS 1.2 NG/ML (<3.6)
[2024-05-25 21:11] LABS: CALCIUM LEVEL 9.5 MG/DL (8.3-10.6); CREATININE FOR GFR 1.41 MG/DL (0.70-1.30); GLOMERULAR FILTRATION RATE 53.4 (>49); POTASSIUM SERUM 3.7 MMOL/L (3.5-5.1)
[2024-05-25 21:22] LABS: MB/CK RELATIVE INDEX 1.55 (< OR =4)
[2024-05-25 21:48] LABS: ALBUMIN 3.4 G/DL (3.2-5.2); BILIRUBIN,DIRECT 0.4 MG/DL (<0.4); TOTAL PROTEIN 6.5 G/DL (5.7-8.2)
[2024-05-25 21:50] LABS: FREE T4 1.32 NG/DL (0.89-1.76); THYROID STIMULATING HORMONE 1.648 uIU/ML (0.55-4.78)
[2024-05-25 22:14] LABS: CK-MB VALUE MASS 1.3 NG/ML (<3.6)
[2024-05-25 22:16] LABS: MB/CK RELATIVE INDEX 1.75 (< OR =4)
[2024-05-25] MEDS ORDERED: ISOVUE-370 76% 100ML VIAL As Ordered ONE (23:02)
[2024-05-25] MEDS: FUROSEMIDE 40MG/4ML VIAL IV ONE (23:49)
[2024-05-26 00:05] LABS: CK-MB VALUE MASS 1.4 NG/ML (<3.6)
[2024-05-26 00:16] LABS: MB/CK RELATIVE INDEX 1.94 (< OR =4)
[2024-05-26] MEDS: PERCOCET 5MG/325MG TAB PO ONE (01:43)
[2024-05-26 01:45] VITALS: BP 163/87; O2SAT 93
== END 2024-05-26 01:55 | disposition home or self-care (01) ==
LOC: M ED 20:09
DX: R60.9 Edema, unspecified (principal); I44.0 Atrioventricular block, first degree; I10 Essential (primary) hypertension; E78.5 Hyperlipidemia, unspecified; J44.9 Chronic obstructive pulmonary disease, unspecified; K21.9 Gastro-esophageal reflux disease without esophagitis; N18.30 Chronic kidney disease, stage 3 unspecified; K76.0 Fatty (change of) liver, not elsewhere classified; M54.50 Low back pain, unspecified; F17.200 Nicotine dependence, unspecified, uncomplicated; Z88.8 Allergy status to other drugs, medicaments and biological substances; Z88.5 Allergy status to narcotic agent; Z79.52 Long term (current) use of systemic steroids; Z79.82 Long term (current) use of aspirin; Z79.02 Long term (current) use of antithrombotics/antiplatelets; Z79.899 Other long term (current) drug therapy
CPT/HCPCS: 71045; 71275; 80048; 80076; 82550; 82553; 83880; 84439; 84443; 84484; 85025; 87486; 87581; 87633; 87798; 93005; 93041; 93970; 94760; 96374; 99285; J1940; Q9967

== ENCOUNTER → 2025-03-01 | Outpatient (CLI) | payer MEDICARE ==
[~2025-03-01] MED LIST changes: +PRED50TA57 PO
== END ==
LOC: M ONCR 12:51
PROVIDERS: ATTEND General Practice
DX: Z08 Encounter for follow-up examination after completed treatment for malignant neoplasm (principal); F17.210 Nicotine dependence, cigarettes, uncomplicated; G47.33 Obstructive sleep apnea (adult) (pediatric); Z79.82 Long term (current) use of aspirin; Z79.899 Other long term (current) drug therapy; Z85.21 Personal history of malignant neoplasm of larynx; Z88.5 Allergy status to narcotic agent; Z88.8 Allergy status to other drugs, medicaments and biological substances
CPT/HCPCS: 31575; G0463

== ENCOUNTER 2025-04-02 15:37 | Emergency (ER) | payer MEDICARE ==
[~2025-04-02] VITALS: Ht 182.9 cm; Wt 125.9 kg
[~2025-04-02 15:37] MED LIST changes: +CLOT10TR11 PO; +JARD1TAB PO; +PRED10PA2 PO; +TORS20TA2 PO
[2025-04-02] MEDS ORDERED: AMOX875T2 (15:58)
[2025-04-02] MEDS ORDERED: DOXY100C3 (15:58)
[2025-04-02 16:00] VITALS: TEMP 98.3
[2025-04-02 17:40] LABS: BASO # 0.0 10^3/uL (0.0-0.2); BASO % 0.5 % (0.0-1.0); EOS # 0.0 10^3/uL (0.0-0.5); EOS % 0.5 % (0.0-3.0); LYMPH # 1.0 10^3/uL (1.5-5.0); LYMPH % 16.3 % (24.0-44.0); MONO # 0.6 10^3/uL (0.0-0.8); MONO % 8.8 % (2.0-8.0); NEUTROPHILS # 4.7 10^3/uL (1.5-8.5); NEUTROPHILS % 73.3 % (36.0-66.0); PLATELET COUNT, AUTOMATED 136 10^3/uL (150-450)
[2025-04-02] MEDS: TETANUS/DIPHTH/ACEL. PERTUSSIS 0.5 ML SYR IM.IMMUN ONE (18:08)
[2025-04-02 18:11] LABS: CALCIUM LEVEL 9.0 MG/DL (8.3-10.6); CARBON DIOXIDE LEVEL 27.0 MMOL/L (20-31); CHLORIDE LEVEL 101.0 MMOL/L (98-107); CREATININE FOR GFR 1.74 MG/DL (0.70-1.30); GLOMERULAR FILTRATION RATE 42.2 (>49); MAGNESIUM LEVEL 2.1 MG/DL (1.8-2.4); POTASSIUM SERUM 4.1 MMOL/L (3.5-5.1); SODIUM LEVEL 140.0 MMOL/L (136-145)
[2025-04-02 19:00] VITALS: BP 152/86; O2SAT 97
[2025-04-02 19:16] VITALS: O2SAT 96
== END 2025-04-02 19:40 | disposition home or self-care (01) ==
LOC: M ED 15:37 → EDBD 15:37 → M ED 19:40
DX: S50.311A Abrasion of right elbow, initial encounter (principal); S70.212A Abrasion, left hip, initial encounter; S30.1XXA Contusion of abdominal wall, initial encounter; W19.XXXA Unspecified fall, initial encounter; I10 Essential (primary) hypertension; E11.9 Type 2 diabetes mellitus without complications; N18.9 Chronic kidney disease, unspecified; G47.33 Obstructive sleep apnea (adult) (pediatric); J44.9 Chronic obstructive pulmonary disease, unspecified; I70.223 Atherosclerosis of native arteries of extremities with rest pain, bilateral legs; F17.200 Nicotine dependence, unspecified, uncomplicated; Z86.79 Personal history of other diseases of the circulatory system; Z88.8 Allergy status to other drugs, medicaments and biological substances; Z88.5 Allergy status to narcotic agent; Z23 Encounter for immunization; Z79.52 Long term (current) use of systemic steroids; Z79.82 Long term (current) use of aspirin; Z79.02 Long term (current) use of antithrombotics/antiplatelets; Z79.2 Long term (current) use of antibiotics; Z79.899 Other long term (current) drug therapy; Y92.009 Unspecified place in unspecified non-institutional (private) residence as the place of occurrence of the external cause; Y93.89 Activity, other specified; Y99.9 Unspecified external cause status

== ENCOUNTER → 2025-04-16 | Outpatient (CLI) | payer MEDICARE ==
[~2025-04-16] MED LIST changes: +AMOX875T2; +DOXY100C3
[2025-04-16 19:30] LABS: PLATELET COUNT, AUTOMATED 299 10^3/uL (150-450)
[2025-04-16 19:35] LABS: ALT/SGPT 21.0 U/L (7.0-40); AST/SGOT 27.0 U/L (<34); CALCIUM LEVEL 9.8 MG/DL (8.3-10.6); CARBON DIOXIDE LEVEL 22.0 MMOL/L (20-31); CHLORIDE LEVEL 108.0 MMOL/L (98-107); CREATININE FOR GFR 1.18 MG/DL (0.70-1.30); GLOMERULAR FILTRATION RATE 67.2 (>49); MAGNESIUM LEVEL 1.9 MG/DL (1.8-2.4); POTASSIUM SERUM 4.4 MMOL/L (3.5-5.1); SODIUM LEVEL 144.0 MMOL/L (136-145)
[2025-04-16 19:48] LABS: ESTIMATED AVERAGE GLUCOSE 100.0 MG/DL (60-110)
== END ==
LOC: M WUC 14:33
PROVIDERS: ATTEND Nurse Practitioner Adult Health
DX: Z09 Encounter for follow-up examination after completed treatment for conditions other than malignant neoplasm (principal); I10 Essential (primary) hypertension; R73.9 Hyperglycemia, unspecified

== ENCOUNTER 2025-05-03 15:04 | Emergency (ER) | payer MEDICARE ==
[~2025-05-03] VITALS: Ht 182.9 cm; Wt 105.0 kg
[2025-05-03 15:45] LABS: BASO # 0.0 10^3/uL (0.0-0.2); BASO % 0.2 % (0.0-1.0); EOS # 0.0 10^3/uL (0.0-0.5); EOS % 0.0 % (0.0-3.0); LYMPH # 1.3 10^3/uL (1.5-5.0); LYMPH % 13.8 % (24.0-44.0); MONO # 0.5 10^3/uL (0.0-0.8); MONO % 5.3 % (2.0-8.0); NEUTROPHILS # 7.6 10^3/uL (1.5-8.5); NEUTROPHILS % 80.3 % (36.0-66.0); PLATELET COUNT, AUTOMATED 202 10^3/uL (150-450)
[2025-05-03] MEDS: NITROGLYCERIN 0.4 MG SUBL TABLET SL PRN (16:08)
[2025-05-03] MEDS: NS (Normal Saline) 0.9% 1,000 ML IV SCH (16:08)
[2025-05-03 16:15] VITALS: BP 197/97
[2025-05-03 16:25] LABS: CALCIUM LEVEL 8.9 MG/DL (8.3-10.6); CARBON DIOXIDE LEVEL 24 MMOL/L (20-31); CHLORIDE LEVEL 103 MMOL/L (98-107); CK-MB VALUE MASS 2.8 NG/ML (<3.6); CPK CREATINE PHOSPHOKINASE 52 U/L (46-171); CREATININE FOR GFR 0.92 MG/DL (0.70-1.30); GLOMERULAR FILTRATION RATE > 90.0 (>49); MB/CK RELATIVE INDEX 5.38 (< OR =4); POTASSIUM SERUM 4.4 MMOL/L (3.5-5.1); SODIUM LEVEL 138 MMOL/L (136-145)
[2025-05-03 16:58] LABS: INR 0.99
[2025-05-03 17:08] LABS: CK-MB VALUE MASS 2.6 NG/ML (<3.6)
[2025-05-03 17:19] LABS: CPK CREATINE PHOSPHOKINASE 32.0 U/L (46-171); MB/CK RELATIVE INDEX 8.12 (< OR =4)
[2025-05-03] MEDS: PANTOPRAZOLE 40MG VIAL IV ONE (17:21)
[2025-05-03 19:11] VITALS: BP 154/88; TEMP 97.2; O2SAT 96
== END 2025-05-03 19:13 | disposition home or self-care (01) ==
LOC: M ED 15:04
DX: R07.9 Chest pain, unspecified (principal); K29.00 Acute gastritis without bleeding; I45.10 Unspecified right bundle-branch block; I49.1 Atrial premature depolarization; I10 Essential (primary) hypertension; E78.5 Hyperlipidemia, unspecified; K21.9 Gastro-esophageal reflux disease without esophagitis; J44.9 Chronic obstructive pulmonary disease, unspecified; F17.200 Nicotine dependence, unspecified, uncomplicated; Z86.79 Personal history of other diseases of the circulatory system; Z88.8 Allergy status to other drugs, medicaments and biological substances; Z88.5 Allergy status to narcotic agent; Z79.52 Long term (current) use of systemic steroids; Z79.82 Long term (current) use of aspirin; Z79.02 Long term (current) use of antithrombotics/antiplatelets; Z79.899 Other long term (current) drug therapy
CPT/HCPCS: 71045; 80048; 82550; 82553; 84484; 85025; 85610; 93005; 93041; 94760; 96361; 96374; 99285; J2470

== ENCOUNTER → 2025-05-23 | Outpatient (CLI) | payer MEDICARE | LOC: M RAD 10:37 | PROVIDERS: ATTEND Nurse Practitioner Adult Health | DX: R91.8 Other nonspecific abnormal finding of lung field (principal) ==

== ENCOUNTER → 2025-05-31 | Outpatient (REF) | payer MEDICARE | LOC: M SFHCWOUN 17:25 | PROVIDERS: ATTEND Surgery | DX: L82.1 Other seborrheic keratosis (principal); S61.202A Unspecified open wound of right middle finger without damage to nail, initial encounter ==

== ENCOUNTER 2025-06-25 13:14 | Emergency (ER) | payer MEDICARE ==
[~2025-06-25] VITALS: Ht 182.9 cm; Wt 120.4 kg
[2025-06-25 13:17] VITALS: BP 156/78; TEMP 97.4; O2SAT 96
[2025-06-25 14:26] LABS: BASO # 0.1 10^3/uL (0.0-0.2); BASO % 0.6 % (0.0-1.0); EOS # 0.1 10^3/uL (0.0-0.5); EOS % 0.7 % (0.0-3.0); LYMPH # 1.3 10^3/uL (1.5-5.0); LYMPH % 14.7 % (24.0-44.0); MONO # 0.9 10^3/uL (0.0-0.8); MONO % 10.1 % (2.0-8.0); NEUTROPHILS # 6.6 10^3/uL (1.5-8.5); NEUTROPHILS % 73.0 % (36.0-66.0); PLATELET COUNT, AUTOMATED 223 10^3/uL (150-450)
[2025-06-25 14:53] LABS: ALT/SGPT 30.0 U/L (7.0-40); AST/SGOT 21.0 U/L (<34); C REACTIVE PROTEIN QUANTITATIV 2.03 MG/DL (<1.0); CALCIUM LEVEL 8.9 MG/DL (8.3-10.6); CARBON DIOXIDE LEVEL 26.0 MMOL/L (20-31); CHLORIDE LEVEL 103.0 MMOL/L (98-107); CREATININE FOR GFR 1.29 MG/DL (0.70-1.30); GLOMERULAR FILTRATION RATE 60.4 (>49); POTASSIUM SERUM 3.3 MMOL/L (3.5-5.1); SODIUM LEVEL 139.0 MMOL/L (136-145)
[2025-06-25] MEDS ORDERED: CEPH500C PO (15:44)
== END 2025-06-25 16:28 | disposition home or self-care (01) ==
LOC: M ED 13:14
DX: R60.0 Localized edema (principal); E11.9 Type 2 diabetes mellitus without complications; I10 Essential (primary) hypertension; E78.5 Hyperlipidemia, unspecified; J44.9 Chronic obstructive pulmonary disease, unspecified; C32.9 Malignant neoplasm of larynx, unspecified; Z88.8 Allergy status to other drugs, medicaments and biological substances; Z88.5 Allergy status to narcotic agent; Z79.52 Long term (current) use of systemic steroids; Z79.899 Other long term (current) drug therapy; Z79.2 Long term (current) use of antibiotics; Z79.02 Long term (current) use of antithrombotics/antiplatelets; Z79.82 Long term (current) use of aspirin